=== PATIENT | female | born 1950 | race Caucasian/White ===

== ENCOUNTER 2018-02-22 21:10 | Emergency (ER) | payer MEDICARE, OTHER ==
--- NOTE | 2018-02-23 00:32 | XRAY Report ---
Reason: Pain after fall Procedure Date: 02/23/2018 Accession Number: [id number] / [id number] Procedure: XR - Hip w/Pelvis 2-3V RT CPT Code: FULL RESULT: EXAM: RIGHT HIP AND PELVIS RADIOGRAPHY EXAM DATE: 02/23/2018 12:03 AM. HISTORY: Pain after fall. COMPARISONS: None. TECHNIQUE: 1 view of the pelvis and 1 view of the hip. FINDINGS: Bones: Normal. No fracture or bone lesion. Joints: Mild bilateral hip osteoarthritis. Soft Tissues: Normal. No soft tissue swelling. IMPRESSION: Mild osteoarthritis. No evidence of fracture. RADIA
--- NOTE | 2018-02-23 00:44 | ED Physician Documentation ---
History of Present Illness - Stated complaint Stated Complaint: WEAKNESS - Chief complaint Chief Complaint: Ext Problem - History obtained from History obtained from: Patient - History of Present Illness Timing: How many weeks ago (1) Pain level max: 0 Pain level now: 0 Severity Comments: moderate Quality: weak Radiates to: Non Improved by: nothing Worsened by: nothing - Additonal information Additional information: 68-year-old female with 1 week of right foot drop. Patient denies any back pain. Patient denies any bowel or bladder difficulties. Patient denies any other weakness. Review of Systems Ten Systems: 10 systems reviewed and negative Constitutional: reports: Reviewed and negative Eyes: reports: Reviewed and negative Ears: reports: Reviewed and negative Nose: reports: Reviewed and negative Throat: reports: Reviewed and negative Cardiac: reports: Reviewed and negative Respiratory: reports: Reviewed and negative GI: reports: Reviewed and negative : reports: Reviewed and negative Skin: reports: Reviewed and negative Musculoskeletal: reports: Reviewed and negative Neurologic: reports: Reviewed and negative Psychiatric: reports: Reviewed and negative Endocrine: reports: Reviewed and negative Immunocompromised: reports: Reviewed and negative PD PAST MEDICAL HISTORY - Past Medical History Cardiovascular: None, Hypertension, High cholesterol Respiratory: None Endocrine/Autoimmune: None GI: None 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 : None HEENT: None Psych: None Musculoskeletal: Osteoarthritis, Osteoporosis, Chronic back pain Derm: None - Past Surgical History Past Surgical History: Yes General: Other Other past surgical history: Reviewed and not pertinent - Present Medications Home Medications: Ambulatory Orders Medication Instructions Recorded Confirmed Anastrozole 1 mg PO DAILY 05/11/14 09/06/15 Omeprazole 40 mg PO DAILY 05/11/14 09/06/15 Ibuprofen 600 mg PO TID #20 tablet 11/24/14 09/06/15 Albuterol Sulfate [Proair Hfa 1 gm INH Q6HR 09/06/15 09/06/15 Inhaler] Aspirin 1 mg PO DAILY 09/06/15 09/06/15 Calcium Carbonate/Vitamin D3 1 mg PO DAILY 09/06/15 09/06/15 [Calcium 500-Vit D3 600 Tablet] Cyclobenzaprine [Flexeril] 1 mg PO DAILY 09/06/15 09/06/15 Hydrocodone/Acetaminophen [[place] 1 each PO Q6H PRN #20 tablet 09/06/15 5-325 Tablet] Naproxen 375 mg PO BID #20 tablet 09/06/15 Simvastatin 1 mg PO DAILY 09/06/15 09/06/15 Telmisartan/Hydrochlorothiazid 80 mg PO DAILY 09/06/15 09/06/15 [Micardis Hct 40-12.5 mg Tablet] Vit A,C,D3,E/[place]-3/Ala/Dha 1 mg PO DAILY 09/06/15 09/06/15 [Child's [place]-3 Dha Multivitam] - Allergies Allergies/Adverse Reactions: Allergies Allergy/AdvReac Type Severity Reaction Status Date / Time Latex, Natural Rubber Allergy Rash Verified 02/22/18 21:20 lisinopril Allergy Respiratory Verified 02/22/18 21:20 - Living Situation Living Situation: reports: With family Living Arrangement: reports: At home - Social History Does the pt smoke?: Yes Smoking Status: Current every day smoker Does the pt drink ETOH?: Yes Does the pt have substance abuse?: No - Family History Family history: reports: Other (Reviewed and not pertinent) - Immunizations Immunizations are current?: Yes - POLST Patient has POLST: No PD ED PE NORMAL - Vitals Vital signs reviewed: Yes - General General: Alert and oriented X 3, No acute distress - HEENT HEENT: PERRL - Neck Neck: Supple, no meningeal sign - Cardiac Cardiac: RRR, No murmur - Respiratory Respiratory: Clear bilaterally - Abdomen Abdomen: Normal bowel sounds, Soft, Non tender, Non distended - Derm Derm: Warm and dry - Extremities Extremities: No deformity, Other (Weakness w dorsiflexion of right foot, toe extension, inversion and eversion, diminished sensation on right lateral wood. Right hip tenderness to palpation. ) - Neuro Neuro: Alert and oriented X 3 - Psych Psych: Normal mood, Normal affect Results - Vitals Vitals: Vital Signs - 24 hr 02/22/18 02/22/18 02/23/18 21:14 23:24 00:33 Temperature 36.2 C L Heart Rate 85 77 83 Respiratory 16 Rate Blood Pressure 94/51 L 133/86 H 110/66 O2 Saturation 98 95 91 L 02/23/18 00:54 Temperature Heart Rate 90 Respiratory 18 Rate Blood Pressure 118/66 O2 Saturation 90 L Oxygen O2 Source Room air - Rads (name of study) Right hip xray Radiology: Final report received (WNL) PD MEDICAL DECISION MAKING - ED course Complexity details: reviewed results, re-evaluated patient, considered differential, d/w patient, d/w family ED course: 68-year-old female with 1 week of right foot drop. Physical exam is consistent with an L5 radiculopathy. Patient was offered admission for physical and occupational therapy and emergent MRI but patient prefers to follow-up with her primary care provider for MRI.Will return with worsening symptoms. Departure - Departure Disposition: 01 Home, Self Care Clinical Impression: Lumbar radiculopathy, Foot drop, right Condition: Good Instructions: ED Foot Drop Follow-Up: SHAKIRA ARANA [Primary Care Provider] - Comments: Maintain walking precautions for right foot drop. Follow-up with PCP for lumbar MRI. Return with worsening symptoms. Discharge Date/Time: 02/23/18 00:54
[2018-02-23 00:55] VITALS: BP 118/66
== END 2018-02-23 00:54 | disposition home or self-care (01) ==
LOC: ED 21:10
DX: M54.16 Radiculopathy, lumbar region (principal); M21.371 Foot drop, right foot; I10 Essential (primary) hypertension; E78.00 Pure hypercholesterolemia, unspecified; C50.919 Malignant neoplasm of unspecified site of unspecified female breast; F17.200 Nicotine dependence, unspecified, uncomplicated; Z79.82 Long term (current) use of aspirin
CPT/HCPCS: 99283

== ENCOUNTER 2018-02-28 08:27 | Emergency (ER) | payer MEDICARE, OTHER ==
--- NOTE | 2018-02-28 08:48 | ED Physician Documentation ---
PD HPI GI BLEED - Stated complaint Stated Complaint: STOMACH PX/BLOOD IN STOOL - Chief complaint Chief Complaint: Abd Pain - History obtained from History obtained from: Patient, Family - History of Present Illness Timing - onset: How many days ago (3) Timing - duration: Days (3) Timing - details: Gradual onset, Still present Associated symptoms: BRBPR, Black/tarry stool, Abdominal pain Contributing factors: Alcohol use, NSAID use Improved by: Laying still Similar symptoms before: Has not had sx before Recently seen: Emergency Dept - Additional information Additional information: 68-year-old female with a history of chronic alcohol abuse and hypertension has recently been into the emergency department with a right foot drop and she has been taking ibuprofen last week for this and she began to develop some blood in the stool and dark stool 3 days ago. She is now feeling lightheaded and dizzy and has abdominal pain. She is come to the emergency department for evaluation. Review of Systems Constitutional: denies: Fever Eyes: denies: Decreased vision Ears: denies: Ear pain Nose: denies: Rhinorrhea / runny nose Throat: denies: Sore throat Cardiac: denies: Chest pain / pressure, Palpitations Respiratory: denies: Dyspnea, Cough GI: reports: Abdominal Pain, Nausea, Bloody / black stool. denies: Vomiting : denies: Dysuria, Frequency Skin: denies: Rash Musculoskeletal: reports: Back pain, Extremity pain. denies: Neck pain Neurologic: reports: Focal weakness. 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 : None HEENT: None Psych: None Musculoskeletal: Osteoarthritis, Osteoporosis, Chronic back pain Derm: None - Past Surgical History Past Surgical History: Yes General: Other - Present Medications Home Medications: Ambulatory Orders Medication Instructions Recorded Confirmed Anastrozole 1 mg PO DAILY 05/11/14 09/06/15 Omeprazole 40 mg PO DAILY 05/11/14 09/06/15 Ibuprofen 600 mg PO TID #20 tablet 11/24/14 09/06/15 Albuterol Sulfate [Proair Hfa 1 gm INH Q6HR 09/06/15 09/06/15 Inhaler] Aspirin 1 mg PO DAILY 09/06/15 09/06/15 Calcium Carbonate/Vitamin D3 1 mg PO DAILY 09/06/15 09/06/15 [Calcium 500-Vit D3 600 Tablet] Cyclobenzaprine [Flexeril] 1 mg PO DAILY 09/06/15 09/06/15 Hydrocodone/Acetaminophen [[place] 1 each PO Q6H PRN #20 tablet 09/06/15 5-325 Tablet] Naproxen 375 mg PO BID #20 tablet 09/06/15 Simvastatin 1 mg PO DAILY 09/06/15 09/06/15 Telmisartan/Hydrochlorothiazid 80 mg PO DAILY 09/06/15 09/06/15 [Micardis Hct 40-12.5 mg Tablet] Vit A,C,D3,E/[place]-3/Ala/Dha 1 mg PO DAILY 09/06/15 09/06/15 [Child's [place]-3 Dha Multivitam] LORazepam [Ativan] 1 - 2 mg PO Q6HR PRN #30 tablet 02/28/18 Sucralfate [Carafate] 1 gm PO ACHS #40 tablet 02/28/18 - Allergies Allergies/Adverse Reactions: Allergies Allergy/AdvReac Type Severity Reaction Status Date / Time Latex, Natural Rubber Allergy Rash Verified 02/22/18 21:20 lisinopril Allergy Respiratory Verified 02/22/18 21:20 - Social History Does the pt smoke?: Yes Smoking Status: Current every day smoker Does the pt drink ETOH?: Yes Does the pt have substance abuse?: No - Immunizations Immunizations are current?: Yes - POLST Patient has POLST: No PD ED PE NORMAL - Vitals Vital signs reviewed: Yes (hypotensive ) - General General: Alert and oriented X 3, No acute distress, Well developed/nourished, Other (pale 68 y/o female has AOB and appears to be in some pain ) - HEENT HEENT: Atraumatic, PERRL, EOMI, Other (dry mucous membranes ) - Neck Neck: Supple, no meningeal sign, No bony TTP - Cardiac Cardiac: RRR, No murmur - Respiratory Respiratory: No respiratory distress, Clear bilaterally - Abdomen Abdomen: Soft, Other (mild epigastric tenderness to palpation ) - Rectal Rectal: Other (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 There are internal as well as external hemorrhoids and there is stool on the tip of the glove that is dark and guiac negative. ) - Back Back: No CVA TTP, No spinal TTP - Derm Derm: Normal color, Warm and dry, No rash - Extremities Extremities: No deformity, No edema - Neuro Neuro: Alert and oriented X 3, personal development coach 2-12 intact, Normal speech Eye Opening: Spontaneous Motor: Obeys Commands Verbal: Oriented GCS Score: 15 - Psych Psych: Normal mood, Other (affect is flat consistent with pain ) Results - Vitals Vitals: Vital Signs - 24 hr 02/28/18 02/28/18 02/28/18 08:33 08:40 08:45 Temperature 35.9 C L Heart Rate 99 88 90 Respiratory 16 18 16 Rate Blood Pressure 70/48 L 99/68 94/58 L O2 Saturation 99 97 98 02/28/18 02/28/18 02/28/18 09:00 09:15 09:30 Temperature Heart Rate 79 77 75 Respiratory 16 15 14 Rate Blood Pressure 109/55 L 107/56 L 108/54 L O2 Saturation 99 97 97 02/28/18 02/28/18 02/28/18 09:45 10:10 10:45 Temperature 36.6 C Heart Rate 87 90 94 Respiratory 16 15 13 Rate Blood Pressure 118/52 L 103/57 L 115/66 O2 Saturation 100 100 95 02/28/18 02/28/18 13:03 15:30 Temperature Heart Rate 96 90 Respiratory 15 18 Rate Blood Pressure 112/64 101/54 L O2 Saturation 95 91 L Oxygen O2 Source Room air - Labs Labs: Laboratory Tests 02/28/18 02/28/18 02/28/18 08:40 08:40 08:40 WBC 4.1 L RBC 4.04 L Hgb 15.0 Hct 42.1 MCV 104.2 H MCH 37.1 H MCHC 35.6 RDW 13.8 Plt Count 76 L MPV 11.0 H Neut # (Auto) 2.4 Lymph # (Auto) 1.0 L [place] # (Auto) 0.6 Eos # (Auto) 0.0 Baso # (Auto) 0.1 Absolute Nucleated RBC 0.00 Nucleated RBC % 0.1 Manual Slide Review Indicated Platelet Estimate DECREASED (<130,000) Platelet Morphology 1+ LARGE PLATELETS RBC Morph Micro Appear 1+ MACROCYTOSIS PT INR Sodium 125 L Potassium 3.0 L Chloride 84 L Carbon Dioxide 26 Anion Gap 15.0 H BUN 7 Creatinine 0.5 Estimated GFR (MDRD) 122 Glucose 109 H Lactic Acid Calcium 8.3 L Total Bilirubin 1.9 H AST 246 H ALT 117 H Alkaline Phosphatase 189 H Troponin I < 0.04 Total Protein 5.6 L Albumin 3.2 Globulin 2.4 Albumin/Globulin Ratio 1.3 Lipase 43 Urine Color Urine Clarity Urine pH Ur Specific [place] Urine Protein Urine Glucose (UA) Urine Ketones Urine Occult Blood Urine Nitrite Urine Bilirubin Urine Urobilinogen Ur Leukocyte Esterase Ur Microscopic Review Urine Culture Comments Ethyl Alcohol 96.2 Blood Type Blood Type Recheck Antibody Screen Crossmatch IS Only 02/28/18 02/28/18 02/28/18 08:42 08:53 08:53 WBC RBC Hgb Hct MCV MCH MCHC RDW Plt Count MPV Neut # (Auto) Lymph # (Auto) [place] # (Auto) Eos # (Auto) Baso # (Auto) Absolute Nucleated RBC Nucleated RBC % Manual Slide Review Platelet Estimate Platelet Morphology RBC Morph Micro Appear PT INR Sodium Potassium Chloride Carbon Dioxide Anion Gap BUN Creatinine Estimated GFR (MDRD) Glucose Lactic Acid 4.2 H* Calcium Total Bilirubin AST ALT Alkaline Phosphatase Troponin I Total Protein Albumin Globulin Albumin/Globulin Ratio Lipase Urine Color Urine Clarity Urine pH Ur Specific [place] Urine Protein Urine Glucose (UA) Urine Ketones Urine Occult Blood Urine Nitrite Urine Bilirubin Urine Urobilinogen Ur Leukocyte Esterase Ur Microscopic Review Urine Culture Comments Ethyl Alcohol Blood Type A POSITIVE Blood Type Recheck A POSITIVE Antibody Screen NEGATIVE Crossmatch IS Only See Detail 02/28/18 02/28/18 02/28/18 09:46 10:18 12:32 WBC RBC Hgb Hct MCV MCH MCHC RDW Plt Count MPV Neut # (Auto) Lymph # (Auto) [place] # (Auto) Eos # (Auto) Baso # (Auto) Absolute Nucleated RBC Nucleated RBC % Manual Slide Review Platelet Estimate Platelet Morphology RBC Morph Micro Appear PT 11.3 INR 1.0 Sodium Potassium Chloride Carbon Dioxide Anion Gap BUN Creatinine Estimated GFR (MDRD) Glucose Lactic Acid 2.2 Calcium Total Bilirubin AST ALT Alkaline Phosphatase Troponin I Total Protein Albumin Globulin Albumin/Globulin Ratio Lipase Urine Color YELLOW Urine Clarity CLEAR Urine pH 7.0 Ur Specific [place] 1.010 Urine Protein NEGATIVE Urine Glucose (UA) NEGATIVE Urine Ketones NEGATIVE Urine Occult Blood NEGATIVE Urine Nitrite NEGATIVE Urine Bilirubin NEGATIVE Urine Urobilinogen 0.2 (NORMAL) Ur Leukocyte Esterase NEGATIVE Ur Microscopic Review NOT INDICATED Urine Culture Comments NOT INDICATED Ethyl Alcohol Blood Type Blood Type Recheck Antibody Screen Crossmatch IS Only 02/28/18 13:54 WBC RBC Hgb 13.3 Hct 36.9 L MCV MCH MCHC RDW Plt Count MPV Neut # (Auto) Lymph # (Auto) [place] # (Auto) Eos # (Auto) Baso # (Auto) Absolute Nucleated RBC Nucleated RBC % Manual Slide Review Platelet Estimate Platelet Morphology RBC Morph Micro Appear PT INR Sodium Potassium Chloride Carbon Dioxide Anion Gap BUN Creatinine Estimated GFR (MDRD) Glucose Lactic Acid Calcium Total Bilirubin AST ALT Alkaline Phosphatase Troponin I Total Protein Albumin Globulin Albumin/Globulin Ratio Lipase Urine Color Urine Clarity Urine pH Ur Specific [place] Urine Protein Urine Glucose (UA) Urine Ketones Urine Occult Blood Urine Nitrite Urine Bilirubin Urine Urobilinogen Ur Leukocyte Esterase Ur Microscopic Review Urine Culture Comments Ethyl Alcohol Blood Type Blood Type Recheck Antibody Screen Crossmatch IS Only - Rads (name of study) chest Radiology: Prelim report reviewed (Impression: No acute cardiopulmonary abnormalities detected.), EMP read indepedently, See rad report PD MEDICAL DECISION MAKING - ED course Complexity details: reviewed results, re-evaluated patient, considered differential, d/w patient, d/w family ED course: 68-year-old female with abdominal pain and bright red blood per rectum presents to the emergency department with weakness and GI bleeding. On initial evaluation the patient is hypotensive with a systolic blood pressure of 70 and IV saline is begun. Her initial blood counts are normal and examination of her rectum shows what appears to be inflamed hemorrhoids with evidence of recent bleeding. The stool that was present on the glove was dark and guaiac negative. Patient is administered a banana bag intravenously she does have some alcohol withdrawal symptoms and is administered Ativan IV as well. Her lactate was 4.4 when she arrived and a repeat is 2.2 after 2 L of fluid. canvas worker apprentice is able to come in and talk to the patient about alcohol resources and patient is interested in alcohol cessation and I will provide some Ativan for this. Departure - Departure Disposition: 01 Home, Self Care Clinical Impression: Alcohol abuse, Bleeding external hemorrhoids Gastritis Qualifiers: Gastritis type: alcoholic Chronicity: acute Gastritis bleeding: presence of bleeding unspecified Qualified Code(s): K29.20 - Alcoholic gastritis without bleeding Condition: Stable Instructions: ED Withdrawal Alcohol, ED PUD Vs Gastritis Follow-Up: SHAKIRA ARANA [Primary Care Provider] - Prescriptions: LORazepam [Ativan] 1 - 2 mg PO Q6HR PRN #30 tablet PRN Reason: withdrawal symptoms Sucralfate [Carafate] 1 gm PO ACHS #40 tablet
[2018-02-28 09:02] LABS: BASOPHILS # (AUTO) 0.1 10^3/uL (0.0-0.1); BASOPHILS % (AUTO) 1.6 %; EOSINOPHILS % (AUTO) 0.7 %; LYMPHOCYTES % (AUTO) 23.4 %; MEAN CORPUSCULAR HEMOGLOBIN 37.1 pg (27.0-31.0); MEAN CORPUSCULAR HGB CONC 35.6 g/dL (32.0-36.0); MEAN CORPUSCULAR VOLUME 104.2 fL (81.0-99.0); MONOCYTES # (AUTO) 0.6 10^3/uL (0.0-1.0); MONOCYTES % (AUTO) 14.6 %; NEUTROPHILS # (AUTO) 2.4 10^3/uL (1.5-6.6); NEUTROPHILS % (AUTO) 59.7 %; PLT - PLATELET COUNT 76 10^3/uL (130-450); RED BLOOD COUNT 4.04 10^6/uL (4.20-5.40); RED CELL DISTRIBUTION WIDTH 13.8 % (12.0-15.0); WHITE BLOOD COUNT 4.1 x10^3/uL (4.8-10.8)
[2018-02-28 09:21] LABS: ALBUMIN 3.2 g/dL (3.2-5.5); ALBUMIN/GLOBULIN RATIO 1.3 (1.0-2.2); BILIRUBIN,TOTAL 1.9 mg/dL (0.2-1.0); CALCIUM 8.3 mg/dL (8.5-10.3); CREATININE 0.5 mg/dL (0.4-1.0); TOTAL PROTEIN 5.6 g/dL (6.7-8.2)
[2018-02-28 09:27] LABS: PLATELET ESTIMATE, MANUAL DECREASED (<130,000) (NORMAL); PLATELET MORPHOLOGY 1+ LARGE PLATELETS (NORMAL); RBC MORPHOLOGY (MULTIPLE) 1+ MACROCYTOSIS (NORMAL)
[2018-02-28] MEDS ORDERED: FOLIC ACID INJ 1 MG, THIAMINE INJ 100 MG, MAGNESIUM SULFATE 2 GM, MULTIVITAMIN 10 ML in... IV STA ×5 (09:41)
[2018-02-28 10:19] LABS: PT - PROTHROMBIN TIME 11.3 secs (9.9-12.6)
[2018-02-28 10:31] LABS: BILIRUBIN,URINE NEGATIVE (NEGATIVE); GLUCOSE, URINE (UA) NEGATIVE (NEGATIVE); KETONES,URINE (UA) NEGATIVE (NEGATIVE); LEUKOCYTE ESTERASE, URINE NEGATIVE (NEGATIVE); NITRITE,URINE NEGATIVE (NEGATIVE); OCCULT BLOOD,URINE NEGATIVE (NEGATIVE); PROTEIN,URINE NEGATIVE (NEGATIVE); UROBILINOGEN,URINE 0.2 (NORMAL) E.U./dL (NORMAL)
[2018-02-28 10:39] LABS: CLARITY,URINE CLEAR (CLEAR)
[2018-02-28] MEDS ORDERED: SODIUM CHLORIDE 0.9% 1,000 ML IV ONE (11:16)
[2018-02-28] MEDS ORDERED: LORazepam 2 MG/ML VIAL IVP STA (13:08)
--- NOTE | 2018-02-28 13:15 | XRAY Report ---
Reason: chest pain Procedure Date: 02/28/2018 Accession Number: [id number] / [id number] Procedure: XR - Chest 1 View X-Ray CPT Code: 28488 FULL RESULT: EXAM: CHEST RADIOGRAPHY EXAM DATE: 02/28/2018 12:20 PM. CLINICAL HISTORY: Chest pain. COMPARISON: Chest 2 view PA/LAT 09/06/2015 7:00 AM. TECHNIQUE: 1 view. FINDINGS: Lungs/Pleura: No focal opacities evident. No pleural effusion. No pneumothorax. Mediastinum: Within exam limitations, the cardiomediastinal contour is normal. Other: Surgical clips are again seen projecting over the chest. IMPRESSION: No acute cardiopulmonary abnormalities detected. RADIA
[2018-02-28] MEDS ORDERED: DEXAMETHASONE 10 MG/ML VIAL IVP ONE (13:34)
[2018-02-28 14:00] LABS: HGB - HEMOGLOBIN 13.3 g/dL (12.0-16.0)
[2018-02-28] MEDS ORDERED: PANTOPRAZOLE 40 MG VIAL IVP STA (14:31)
[2018-02-28 16:03] VITALS: BP 101/54
== END 2018-02-28 16:20 | disposition home or self-care (01) ==
LOC: ED 08:27
DX: K64.8 Other hemorrhoids (principal); K64.4 Residual hemorrhoidal skin tags; K29.20 Alcoholic gastritis without bleeding; F10.239 Alcohol dependence with withdrawal, unspecified; I95.9 Hypotension, unspecified; F17.200 Nicotine dependence, unspecified, uncomplicated; I10 Essential (primary) hypertension; Z79.82 Long term (current) use of aspirin
CPT/HCPCS: 36415; 71045; 80053; 81003; 83605; 83690; 84484; 85014; 85018; 85025; 85610; 86850; 86900; 86901; 86920; 96361; 96365; 96375; 99284; J2060; J3411; 80320; 81001; 87086

== ENCOUNTER 2018-04-02 20:52 | Inpatient (IN) | payer MEDICARE, OTHER ==
[2018-04-02] MEDS ORDERED: cefTRIAXone 1 GM in SODIUM CHLORIDE 0.9% MINIBAG 100 ML IV STA (21:47)
--- NOTE | 2018-04-02 21:49 | ED Physician Documentation ---
History of Present Illness - Stated complaint Stated Complaint: L FOOT PX - Chief complaint Chief Complaint: Ext Problem - History obtained from History obtained from: Patient, Family - History of Present Illness Timing: How many weeks ago (2) - Additonal information Additional information: 68-year-old female survivor of breast cancer with a history of hypertension and alcohol abuse has developed swelling in her lower extremities and she has been into see the doctor she has had an ultrasound to rule out DVT and she was not placed on diuretic as her potassium was low. She has had some improvement in the swelling with elevation of her legs and today she is developed sudden pain and redness to the left lower extremity and she has a blister on the dorsum of that foot which ruptured yesterday. Review of Systems Constitutional: reports: Chills. denies: Fever, Myalgias Eyes: denies: Decreased vision Nose: denies: Congestion Throat: denies: Sore throat Respiratory: denies: Cough GI: denies: Abdominal Pain, Nausea, Vomiting : denies: Dysuria Musculoskeletal: reports: Extremity pain, Extremity swelling. 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 : None HEENT: None Psych: None Musculoskeletal: Osteoarthritis, Osteoporosis, Chronic back pain Derm: None - Past Surgical History Past Surgical History: Yes General: Other - Present Medications Home Medications: Ambulatory Orders Medication Instructions Recorded Confirmed Anastrozole 1 mg PO DAILY 05/11/14 09/06/15 Omeprazole 40 mg PO DAILY 05/11/14 09/06/15 Ibuprofen 600 mg PO TID #20 tablet 11/24/14 09/06/15 Albuterol Sulfate [Proair Hfa 1 gm INH Q6HR 09/06/15 09/06/15 Inhaler] Aspirin 1 mg PO DAILY 09/06/15 09/06/15 Calcium Carbonate/Vitamin D3 1 mg PO DAILY 09/06/15 09/06/15 [Calcium 500-Vit D3 600 Tablet] Cyclobenzaprine [Flexeril] 1 mg PO DAILY 09/06/15 09/06/15 Hydrocodone/Acetaminophen [[place] 1 each PO Q6H PRN #20 tablet 09/06/15 5-325 Tablet] Naproxen 375 mg PO BID #20 tablet 09/06/15 Simvastatin 1 mg PO DAILY 09/06/15 09/06/15 Telmisartan/Hydrochlorothiazid 80 mg PO DAILY 09/06/15 09/06/15 [Micardis Hct 40-12.5 mg Tablet] Vit A,C,D3,E/[place]-3/Ala/Dha 1 mg PO DAILY 09/06/15 09/06/15 [Child's [place]-3 Dha Multivitam] LORazepam [Ativan] 1 - 2 mg PO Q6HR PRN #30 tablet 02/28/18 Sucralfate [Carafate] 1 gm PO ACHS #40 tablet 02/28/18 - Allergies Allergies/Adverse Reactions: Allergies Allergy/AdvReac Type Severity Reaction Status Date / Time Latex, Natural Rubber Allergy Rash Verified 04/02/18 20:58 lisinopril Allergy Respiratory Verified 04/02/18 20:58 - Social History Does the pt smoke?: Yes Smoking Status: Current every day smoker Does the pt drink ETOH?: Yes Does the pt have substance abuse?: No - Immunizations Immunizations are current?: Yes - POLST Patient has POLST: No PD ED PE NORMAL - Vitals Vital signs reviewed: Yes (hypertensive mild ) - General General: Alert and oriented X 3, No acute distress, Well developed/nourished - HEENT HEENT: Atraumatic, PERRL, EOMI - Neck Neck: Supple, no meningeal sign, No bony TTP - Cardiac Cardiac: No murmur, Other (tachy to 110) - Respiratory Respiratory: No respiratory distress, Other (diminished breath sounds ) - Abdomen Abdomen: Soft, Non tender - Back Back: No CVA TTP, No spinal TTP - Derm Derm: Normal color, Warm and dry - Extremities Extremities: Other (There is pitting edema bilaterally and the left LE has a ruputured blister on the dorsum of the foot about 3cm round. There is erythema to the left foot that is blanching and the erythema extends proximally to the knee. The leg is tender. The distal n/v is intact. ) - Neuro Neuro: Alert and oriented X 3, dermatology nurse practitioner 2-12 intact, No motor deficit, No sensory deficit, Normal speech Eye Opening: Spontaneous Motor: Obeys Commands Verbal: Oriented GCS Score: 15 - Psych Psych: Normal mood, Normal affect Results - Vitals Vitals: Vital Signs - 24 hr 04/02/18 20:54 Temperature 36.2 C L Heart Rate 98 Respiratory 18 Rate Blood Pressure 130/86 H O2 Saturation 100 Oxygen O2 Source Room air - Labs Labs: Laboratory Tests 04/02/18 04/02/18 04/02/18 22:00 22:00 22:00 WBC 4.1 L RBC 3.85 L Hgb 14.2 Hct 42.4 MCV 110.1 H MCH 36.8 H MCHC 33.5 RDW 14.3 Plt Count 150 MPV 9.3 Neut # (Auto) 2.4 Lymph # (Auto) 0.9 L Jack # (Auto) 0.7 Eos # (Auto) 0.0 Baso # (Auto) 0.1 Absolute Nucleated RBC 0.01 Nucleated RBC % 0.3 Manual Slide Review Indicated WBC Morphology NORMAL APPEARANCE Platelet Estimate NORMAL (130-450,000) Platelet Morphology NORMAL APPEARANCE RBC Morph Micro Appear 3+ MACROCYTOSIS PT 11.5 INR 1.0 Sodium 141 Potassium 3.3 L Chloride 104 Carbon Dioxide 28 Anion Gap 9.0 BUN 5 L Creatinine 0.4 Estimated GFR (MDRD) 158 Glucose 105 H Lactic Acid Calcium 8.0 L Total Bilirubin 1.0 AST 270 H ALT 92 H Alkaline Phosphatase 185 H Total Protein 5.2 L Albumin 2.7 L Globulin 2.5 Albumin/Globulin Ratio 1.1 Lipase 49 Ethyl Alcohol 212.1 04/02/18 22:00 WBC RBC Hgb Hct MCV MCH MCHC RDW Plt Count MPV Neut # (Auto) Lymph # (Auto) Jack # (Auto) Eos # (Auto) Baso # (Auto) Absolute Nucleated RBC Nucleated RBC % Manual Slide Review WBC Morphology Platelet Estimate Platelet Morphology RBC Morph Micro Appear PT INR Sodium Potassium Chloride Carbon Dioxide Anion Gap BUN Creatinine Estimated GFR (MDRD) Glucose Lactic Acid 2.6 H Calcium Total Bilirubin AST ALT Alkaline Phosphatase Total Protein Albumin Globulin Albumin/Globulin Ratio Lipase Ethyl Alcohol Procedures - IVC sono (time) 2111 Bedside IVC sono: IVC measures (cm) (1.30), IVC collapsed c insp (cm) (complete), Dehydration (est 500ml deficit) PD MEDICAL DECISION MAKING - ED course Complexity details: reviewed old records, reviewed results, re-evaluated patient, considered differential, d/w patient, d/w family ED course: 68-year-old female with a history of alcohol abuse has developed swelling to both of her lower extremities over the last 3 weeks and she has been seen by her primary ultrasound is without evidence of DVT and today she has developed redness and pain to her left lower extremity and has cellulitis that extends to her knee. Here in the emergency department she is administered a banana bag intravenously and Rocephin and Dr. Quintero is kind enough to admit the patient to the hospital for continued care. Departure - Departure Disposition: [facility] DC/Xfer Clinical Impression: Alcohol abuse Cellulitis Qualifiers: Site of cellulitis: extremity Site of cellulitis of extremity: lower extremity Laterality: left Qualified Code(s): L03.116 - Cellulitis of left lower limb Condition: Fair
[2018-04-02] MEDS ORDERED: KETOROLAC 30 MG/ML VIAL IVP STA (21:58)
[2018-04-02 22:09] LABS: BASOPHILS # (AUTO) 0.1 10^3/uL (0.0-0.1); BASOPHILS % (AUTO) 1.7 %; EOSINOPHILS % (AUTO) 0.8 %; HGB - HEMOGLOBIN 14.2 g/dL (12.0-16.0); LYMPHOCYTES # (AUTO) 0.9 10^3/uL (1.5-3.5); LYMPHOCYTES % (AUTO) 21.8 %; MEAN CORPUSCULAR HEMOGLOBIN 36.8 pg (27.0-31.0); MEAN CORPUSCULAR HGB CONC 33.5 g/dL (32.0-36.0); MEAN CORPUSCULAR VOLUME 110.1 fL (81.0-99.0); MEAN PLATELET VOLUME 9.3 fL (7.9-10.8); MONOCYTES # (AUTO) 0.7 10^3/uL (0.0-1.0); MONOCYTES % (AUTO) 16.7 %; NEUTROPHILS # (AUTO) 2.4 10^3/uL (1.5-6.6); PLT - PLATELET COUNT 150 10^3/uL (130-450); RED BLOOD COUNT 3.85 10^6/uL (4.20-5.40); RED CELL DISTRIBUTION WIDTH 14.3 % (12.0-15.0); WHITE BLOOD COUNT 4.1 x10^3/uL (4.8-10.8)
[2018-04-02 22:13] LABS: PT - PROTHROMBIN TIME 11.5 secs (9.9-12.6)
[2018-04-02 22:18] LABS: ALBUMIN 2.7 g/dL (3.2-5.5); ALBUMIN/GLOBULIN RATIO 1.1 (1.0-2.2); CREATININE 0.4 mg/dL (0.4-1.0); TOTAL PROTEIN 5.2 g/dL (6.7-8.2)
[2018-04-02 22:21] LABS: PLATELET ESTIMATE, MANUAL NORMAL (130-450,000) (NORMAL); PLATELET MORPHOLOGY NORMAL APPEARANCE (NORMAL); RBC MORPHOLOGY (MULTIPLE) 3+ MACROCYTOSIS (NORMAL)
[2018-04-02] MEDS ORDERED: FOLIC ACID INJ 1 MG, THIAMINE INJ 100 MG, MAGNESIUM SULFATE 2 GM, MULTIVITAMIN 10 ML in... IV STA ×5 (22:53)
[2018-04-02] MEDS ORDERED: THIAMINE 100 MG/1 ML 2 ML MDV ONE (23:05)
[2018-04-02] MEDS ORDERED: HYDROcod/ACETAM 10 MG/325 MG TABLET PO PRN (23:07)
[2018-04-02] MEDS ORDERED: TEMAZEPAM 15 MG CAPSULE PO PRN (23:07)
[2018-04-02] MEDS ORDERED: PROMETHAZINE 25 MG/1 ML VIAL IM PRN (23:07)
[2018-04-02] MEDS ORDERED: ONDANSETRON 4 MG/2 ML VIAL IVP PRN (23:07)
[2018-04-02] MEDS ORDERED: SODIUM CHLORIDE FLUSH 0.9% 10 ML SYRINGE IVP PRN (23:07)
[2018-04-02] MEDS ORDERED: ZOLPIDEM 5 MG TABLET PO PRN (23:07)
[2018-04-02] MEDS ORDERED: ONDANSETRON ODT 4 MG TABLET TL PRN (23:07)
[2018-04-02] MEDS ORDERED: MORPHINE 2 MG/ML CARPUJECT IVP PRN (23:07)
[2018-04-02] MEDS ORDERED: NICOTINE 14 MG PATCH TOP STA (23:17)
[2018-04-02] MEDS ORDERED: POTASSIUM CHLORIDE 20 MEQ TABLET PO STA (23:18)
--- NOTE | 2018-04-02 23:27 | HISTORY & PHYSICAL EXAMINATION ---
Chief Complaint - Chief Complaint Chief Complaint: Left foot swelling with associated pain and ruptured blister to dorsum History of Present Illness - Admitted From Admitted From:: ED - History Obtained From Records Reviewed: yes History obtained from: Patient, ED staff Exam Limitations: None - History of Present Illness HPI Comment/Other: 68-year-old female with hx copd, chronic tobacco/etoh abuse disorder, HTN, HLP, survivor of breast cancer s/p lumpectomy and chemotx currently on anastazole with hx of DVT in past, chronic back pain, OA, osteoporosis, with recent diagnosis of right foot drop p/w swelling in her lower extremities. Patient was seen by her PCP and had an ultrasound to rule out DVT and she was not placed on diuretic as her potassium was low. She has had some improvement in the swelling with elevation of her legs and today she is developed sudden pain and redness to the left lower extremity and she has a blister on the dorsum of that foot which ruptured yesterday. Patient states that she continues to smoke and drink despite her ongoing right foot drop and chronic back pain with lumbar radiculopathy with no recent trauma, K was 3.3 with ETOh level of 212.1, macrocytosis with transaminitis along with lactic acid of 2.6 observed with mild leukopenia. Initial exam showed BLLE pitting edema 2-3+ with erythematous portions of feet BL extending up to pretibial aspects of legs with a ruptured blister to the left dorsum and associated warmth. There was very distinct minimal dorsi/plantar-flexion deficits to R-foot with some decreased 2 pt discrimination and tender left foot dorsum. 1+pulses on BLLE mainly due to edema. IV rocephin started in ED. Patient states subjective fevers, chills with a smokers cough w/o joint tenderness, diarrhea, CP, SOB, seizures or etoh withdrawals, bowel or blad jeremiah incontinence. 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 : reports: None HEENT: reports: None Psych: reports: None Musculoskeletal: reports: Osteoarthritis, Osteoporosis, Chronic back pain Derm: reports: None MRSA Hx?: No - Past Surgical History General: reports: Other (lumpectomy) - Substance History Use: Uses substance without health or social issues: Tobacco Abuse: Recurrent use of substance despite neg consequences: Alcohol Abuse Issues: Intoxication Dependence: Experiences withdrawal or developed tolerances: Tobacco, Alcohol Dependence Issues: Intoxication Tobacco Details: Cigarettes - POLST Patient has POLST: No POLST Status: Full Code Meds/Allgy - Home Medications Home Medications: Ambulatory Orders Medication Instructions Recorded Confirmed Telmisartan/Hydrochlorothiazid 1 tab PO DAILY 04/02/18 04/02/18 [Telmisartan-Hctz 80-25 mg Tab] - Allergies Allergies/Adverse Reactions: Allergies Allergy/AdvReac Type Severity Reaction Status Date / Time Latex, Natural Rubber Allergy Rash Verified 04/02/18 20:58 lisinopril Allergy Respiratory Verified 04/02/18 20:58 Review of Systems - Constitutional Constitutional: reports: Weakness - Eyes Eyes: denies: Blurred vision - Ears, Nose & Throat Ears, Nose & Throat: denies: Tinnitus, Vertigo - Cardiovascular Cariovascular: reports: Edema. denies: Palpitations, Chest pain, Lighthea dedness, Syncope - Respiratory Respiratory: reports: Cough. denies: Sputum production, Wheezing, Hemoptysis, Pleuritic pain - Gastrointestinal Gastrointestinal: denies: Abdominal pain, Abdominal distention, Constipation, Change in bowel habits, Bloody stools, Nausea, Vomiting, Coffee grounds emesis, Reflux/heartburn - Genitourinary Genitourinary: denies: Dysuria, Frequency, Urgency, Incontinence, Flank pain - Musculoskeletal Musculoskeletal: reports: Back pain, Muscle aches. denies: Limited range of motion, Muscle weakness, Joint swelling - Integumentary Integumentary: reports: Pigment changes. denies: Rash, Pruritis, Lesions, Dryness, Lumps - Neurological Neurological: reports: Numbness. denies: General weakness, Focal weakness, Dizziness, Abnormal gait, Seizures, Incoordination, Slurred speech - Psychiatric Psychiatric: denies: Depression, Anxiety, Suicidal, Hallucinations - Endocrine Endocrine: denies: Polyuria, Polydypsia, Polyphagia, Intolerance to cold, Intolerance to heat - Hematologic/Lymphatic Hematologic/Lymphatic: denies: Anemia, Blood clots, Lymphadenopathy, Bleeding tendencies, Recurrent infections - All Other Systems All Other Systems: reports: Reviewed and negative Prior Level of Functionality: Patient is independent with home ADL's Exam - Vital Signs Reviewed Vital Signs: Yes Vital Signs: Vital Signs x48h Temp Pulse Resp BP Pulse Ox 04/02/18 23:10 36.8 C 84 18 112/88 H 95 04/02/18 20:54 36.2 C L 98 18 130/86 H 100 - Physical Exam General Appearance: positive: No acute distress, Alert, Anxious Eyes Bilateral: positive: Normal inspection, PERRL, EOMI ENT: positive: ENT inspection nml, Pharynx nml, No signs of dehydration Neck: positive: Nml inspection, Thyroid nml, No JVD, Trachea midline, Thyromegaly. negative: Carotid bruit Respiratory: positive: Chest non-tender, No respiratory distress, Breath sounds nml Cardiovascular: positive: Regular rate & rhythm, No murmur, No gallop. negative: Irregularly irregular, JVD present, Systolic murmur, Gallop/S4 Peripheral Pulses: positive: 1+ Abdomen: positive: Non-tender, No organomegaly, Nml bowel sounds, No distention. negative: Tenderness Back: positive: Nml inspection Skin: positive: Warm, Dry, Other (Erythematous BLLE with edema, tenderness to touch, ruptured 2x2 cm blister lesion to dorsum of left foot.) Neurologic/Psychiatric: positive: Oriented x3, CN's nml (2-12), Motor nml, Mood/affect nml, Weakness (1/5 dorsi/plantar deficits noted), Sensory loss (to BLLE plantar surfaces with 2 pt discrimination.). negative: Facial droop, Slurred/abnml speech, Depressed mood/affect Babinski Reflex: Right: Absent, Left: Absent Sepsis Event Note (H) - Evaluation Current Stage of Sepsis: Ruled out Conclusion/Plan - Problem List (1) Cellulitis of both feet Conclusion/Plan: Left foot more affected than right foot with suspected coexisting mild PVD with some neuropathic pain underlying from her chronic etoh abuse and continued tobacco use. Would continue with IV clindamycin to cover for MSSA/MRSA and anaerobes, lactobacillus to provide gut gregory ppx, arterial US with flow to eval for PVD, place on pletal for platelet aggregation ppx, wound care to follow. Blood cultures drawn in ED. May de-escalate to augmentin or po clinda once erythema demarcation improved. (2) History of right foot drop Conclusion/Plan: Unclear of etiology but strongly suspect underlying ETOH induced micronutrient deficiencies such as Vit b12 or B1, obtain levels to confirm. Check TSH, CT of L-spine to eval for L-spine compression of cord with possible tumor or perhaps severe subacute degeneration of cord from b12 def? However, degenerative disc disease with sciatica likely. Vit b12/FA to follow. Would replace if low. PT consulted to evaluate for gait abnormalities associated with foot drop. (3) Neuropathic pain of both feet Conclusion/Plan: Pain control, initiate lyrica or neurontin for symptomatic treatment. Would discourage further ETOH consumption if b12 or other micronutrients low. Would discourage smoking as this will lead to poor circulation and PVD as well as arterial thrombis with associated infections. B12, B1 levels ordered. CT of L- spine in am. (4) Tobacco use disorder, continuous Conclusion/Plan: Offer smoking cessation, education and counseling, consider wellbutrin. Nicotine patch tx. (5) Hypokalemia Conclusion/Plan: Secondary to nutritional deficiencies from etoh abuse. BLLE edema to be treated. Would start on aldactone 25 mg po daily for K-sparing benefit. (6) Hyperlipidemia Conclusion/Plan: Lipid panel in am, low to moderate intensity statin if elevated in the setting of underlying PVD. Qualifiers: Hyperlipidemia type: other hyperlipidemia Qualified Code(s): E78.49 - Other hyperlipidemia; E78.4 - Other hyperlipidemia (7) Macrocytosis without anemia Conclusion/Plan: Sec to chronic bone marrow suppression, indication of B12/FA deficiencies, l evels to follow. (8) Alcohol abuse Conclusion/Plan: With associated tranaminitis seen with elevated LFT's, no withdrawal in past, would place on CIWA protocol with ativan in case, micronutrient def likely expected in the setting of her hx with neuropathic pain and suspected B12 def associated deg of cord? vs L-spine radiculopathy/sciatica. No anemias or bl eeding seen. No coagulopathy, continue to monitor. (9) Hypertension Conclusion/Plan: Resume home meds, if autonomic dysfunction is seen with etoh withdrawals may start clonidine. Qualifiers: Hypertension type: essential hypertension Qualified Code(s): I10 - Essential (primary) hypertension (10) Lumbar radiculopathy Conclusion/Plan: Lumbar CT w and w/o contrast to exclude cord compression by mass. Although unlikely may still be present due to risk factor of smoking. Presence of subacute cord Demyelination would point in the direction of ETOH induced B12 deficiency. (11) Advanced care planning/counseling discussion Conclusion/Plan: Patient's medical conditions along with associated complications were discussed in detail to include symptoms mgmt, trajectory of illness and associated disabilities if risk factors such as continued etoh abuse and smoking are not addressed with cessation and or other pharmacological modalities. Patient understood that lifestyle modifications are needed to achieve cessation of tobacco and etoh use to avoid such complications. She has no POLST and would further discuss her request for FULL code with thinking about whether or not she would want continued aggressive care in the event of medical futility. - Lab Results Lab results reviewed: Yes Fish Bones: 04/02/18 22:00 04/02/18 22:00 - EKG Results EKG Interpreted Independently: No Core Measures - Anticipated LOS I expect patient to be DC'd or transferred within 96 hours.: Yes - Issues Hospital Issues and Management Plan: Imaging studies, wound care, IV abx's, work up for PVD and Lumbar radiculopathy - DVT/VTE - Prophylaxis VTE/DVT Device ordered at admit?: No Not Ordered - Medical Reason: Contraindicated (due to BLLE edema and cellulitis) VTE/DVT Prophylaxis med ordered at admit?: Yes - Stroke - Rehab Assessment Rehab services assessment to be ordered?: No Not Ordered - Medical Reason: Not indicated - AMI - Statin at Admit Aspirin Prescribed on Admit: Yes
[2018-04-02] MEDS ORDERED: IOVERSOL 320 100 ML VIAL IVP ONE (23:33)
[2018-04-02] MEDS ORDERED: ASPIRIN CHEW 81 MG TABLET PO STA (23:55)
[2018-04-03] MEDS ORDERED: CLINDAMYCIN 900 MG/50 ML 50 ML IV SCH
[2018-04-03 00:22] LABS: THYROID STIMULATING HORMONE 0.95 uIU/mL (0.34-5.60)
[2018-04-03 00:33] LABS: FOLATE 2.88 ng/mL (5.90 - >24.8)
[2018-04-03] MEDS ORDERED: IOVERSOL 320 100 ML VIAL IVP ONE (00:48)
[2018-04-03] MEDS: PREGABALIN 100 MG CAPSULE PO SCH ×3 (00:53→20:35)
[2018-04-03] MEDS: CILOSTAZOL 100 MG TABLET PO SCH ×3 (00:54→20:35)
[2018-04-03] MEDS: MULTIVITAMIN TABLET PO STA ×3 (00:55→00:57)
[2018-04-03] MEDS: HEPARIN 5,000 UNIT/ML VIAL SUBQ SCH ×4 (01:01→21:29)
[2018-04-03] MEDS: THIAMINE 100 MG TABLET PO SCH ×4 (01:05→21:29)
--- NOTE | 2018-04-03 01:33 | CT Report ---
Reason: Right foot drop with L-spine radiculopathy Procedure Date: 04/03/2018 Accession Number: [id number] / [id number] Procedure: CT - LUMBAR SPINE W/WO CPT Code: FULL RESULT: EXAM: CT LUMBAR SPINE WITHOUT AND WITH CONTRAST EXAM DATE: 04/03/2018 12:46 AM. CLINICAL HISTORY: Right foot drop with L-spine radiculopathy. COMPARISONS: None. TECHNIQUE: Thin-section axial images were acquired of the lumbar spine from T12 to S1 without and with contrast. IV contrast dose: 90 mL Optiray 320. Post-processing: Coronal and sagittal reformats. Other: None. In accordance with CT protocol optimization, one or more of the following dose reduction techniques were utilized for this exam: automated exposure control, adjustment of mA and/or KV based on patient size, or use of iterative reconstructive technique. FINDINGS: Alignment: No scoliosis or spondylolisthesis. Bones: Five dyi-phq-[id number] lumbar vertebral bodies are present. No fractures or bone lesions. Disk Levels/Facets: T12-L1: Unremarkable. L1-L2: Unremarkable. L2-L3: There is a broad-based disk bulge. There is mild central canal narrowing. No neural foraminal narrowing. L3-L4: There is disk height loss and endplate osteophytosis. There is mild central canal narrowing. There is mild bilateral neural foraminal narrowing. L4-L5: There is a central disk protrusion. There is mild facet hypertrophy. There is mild central canal narrowing. There is moderate left neural foraminal narrowing. L5-S1: Small disk bulge. Mild facet hypertrophy. No central canal narrowing. Mild right neural foraminal narrowing. There is no enhancing abnormality. There is moderate aortoiliac calcification. Splenic artery calcifications. Diffuse low density of the liver. Visualized adjacent soft tissues otherwise unremarkable. Musculature: Normal. No fatty atrophy. Other: The visualized retroperitoneum is unremarkable. IMPRESSION: 1. No evidence of lumbar spine fracture. 2. L4-L5 disk protrusion with mild central canal narrowing. 3. L2-L3 disk bulge with mild central canal narrowing. L3-L4 endplate osteophytosis with mild central canal narrowing. 4. Moderate left L4-L5 neural foraminal narrowing. Mild bilateral L3-L4 and mild right L5-S1 neural foraminal narrowing. RADIA
[2018-04-03] MEDS: SODIUM CHLORIDE FLUSH 0.9% 10 ML SYRINGE IVP SCH ×3 (01:52→16:24)
--- NOTE | 2018-04-03 03:59 | Ultrasound Report ---
Reason: PVD with poor dorsalis pulse to BLLE Procedure Date: 04/03/2018 Accession Number: [id number] / [id number] Procedure: US - Duplex Lwr Ext Arterial Bilat CPT Code: FULL RESULT: EXAM: BILATERAL LOWER EXTREMITY ARTERIAL DOPPLER ULTRASOUND EXAM DATE: 04/03/2018 03:36 AM. CLINICAL HISTORY: PVD with poor dorsalis pulse to BLLE. COMPARISON: None. TECHNIQUE: Real-time sonographic vascular imaging was performed by the behavior clinician, utilizing color-flow, Doppler flow, and spectral analysis. Multiple credit representative static images were saved for review. FINDINGS: There is fairly diffuse atherosclerotic plaquing but no focal significant stenosis is identified. No occlusion is seen. There is three-vessel runoff bilaterally. Right Lower Extremity: MEDICAL FACILITIES SECTION DIRECTOR: PSV 127 cm/sec. PSFA: PSV 223 cm/sec. MSFA: PSV 145 cm/sec. DSFA: PSV 184 cm/sec. PFA: PSV 100 cm/sec. POP: PSV 150 cm/sec. MAXWELL: PSV 84 cm/sec. WIND ENERGY PROJECT MANAGER: PSV 38 cm/sec. NATHAN: PSV 88 cm/sec. DPA: PSV 21 cm/sec. Left Lower Extremity: MEDICAL FACILITIES SECTION DIRECTOR: PSV 147 cm/sec. PSFA: PSV 154 cm/sec. MSFA: PSV 167 cm/sec. DSFA: PSV 239 cm/sec. PFA: PSV 69 cm/sec. POP: PSV 122 cm/sec. MAXWELL: PSV 88 cm/sec. WIND ENERGY PROJECT MANAGER: PSV 118 cm/sec. NATHAN: PSV 77 cm/sec. DPA: PSV 21 cm/sec. IMPRESSION: 1. Atherosclerotic plaquing bilaterally with no focal significant stenosis identified. RADIA
[2018-04-03 05:50] LABS: BASOPHILS # (AUTO) 0.1 10^3/uL (0.0-0.1); BASOPHILS % (AUTO) 2.1 %; EOSINOPHILS # (AUTO) 0.1 10^3/uL (0.0-0.7); EOSINOPHILS % (AUTO) 1.9 %; HGB - HEMOGLOBIN 12.2 g/dL (12.0-16.0); LYMPHOCYTES % (AUTO) 25.3 %; MEAN CORPUSCULAR HGB CONC 33.7 g/dL (32.0-36.0); MEAN CORPUSCULAR VOLUME 109.9 fL (81.0-99.0); MEAN PLATELET VOLUME 8.7 fL (7.9-10.8); MONOCYTES # (AUTO) 0.5 10^3/uL (0.0-1.0); MONOCYTES % (AUTO) 13.7 %; NEUTROPHILS # (AUTO) 2.2 10^3/uL (1.5-6.6); PLT - PLATELET COUNT 128 10^3/uL (130-450); RED CELL DISTRIBUTION WIDTH 13.8 % (12.0-15.0); WHITE BLOOD COUNT 3.8 x10^3/uL (4.8-10.8)
[2018-04-03 05:54] LABS: ALBUMIN 2.2 g/dL (3.2-5.5); ALKALINE PHOSPHATASE 144 IU/L (42-121); ALT ALANINE AMINOTRANSFERASE 74 IU/L (10-60); AST ASPARTATE AMINOTRANSFERASE 191 IU/L (10-42); BILIRUBIN,TOTAL 1.1 mg/dL (0.2-1.0); BUN - BLOOD UREA NITROGEN < 5 mg/dL (6-20); CARBON DIOXIDE - CO2 25 mmol/L (21-32); CHLORIDE 105 mmol/L (101-111); CHOL/HDL RATIO 1.6 (<4.4); CHOLESTEROL 148 mg/dL; GLUCOSE 84 mg/dL (70-100); HDL CHOLESTEROL 91 mg/dL; LDL CHOLESTEROL,CALCULATED 44 mg/dL; LDL/HDL RATIO 0.5 (<4.4); SODIUM 138 mmol/L (135-145); TOTAL PROTEIN 4.4 g/dL (6.7-8.2); VLDL CHOLESTEROL 13 mg/dL
[2018-04-03 05:56] LABS: CREATININE < 0.3 mg/dL (0.4-1.0)
[2018-04-03] MEDS ORDERED: POTASSIUM CHLORIDE 20 MEQ TABLET PO ONE (07:23)
[2018-04-03] MEDS: PRENATAL VITAMIN TABLET PO SCH (08:39)
[2018-04-03] MEDS: POLYETHYLENE GLYCOL 3350 17 GM PACKET PO SCH (08:39)
[2018-04-03] MEDS: LACTOBACILLUS RHAMNOSUS GG CAPSULE PO SCH (08:40)
[2018-04-03] MEDS: FAMOTIDINE 20 MG TABLET PO SCH ×2 (08:40→20:35)
[2018-04-03] MEDS: SPIRONOLACTONE 25 MG TABLET PO SCH (08:41)
[2018-04-03] MEDS: CLINDAMYCIN 900 MG/50 ML 50 ML IV SCH ×3 (08:42→20:35)
[2018-04-03] MEDS ORDERED: CYANOCOBALAMIN 500 MCG TABLET PO SCH (09:00)
[2018-04-03] MEDS ORDERED: FOLIC ACID 1 MG TABLET PO SCH (09:00)
[2018-04-03] MEDS: LORazepam 2 MG/ML VIAL IVP PRN ×2 (09:02→09:19)
[2018-04-03] MEDS: ACETAMINOPHEN 325 MG TABLET PO PRN (09:34)
[2018-04-03] MEDS: SODIUM CHLORIDE 0.9% 1,000 ML IV SCH (11:06)
[2018-04-03] MEDS ORDERED: SODIUM CHLORIDE 0.9% 1,000 ML IV ONE (11:08)
[2018-04-03] MEDS: METOPROLOL SUCCINATE 25 MG TABLET PO SCH (11:15)
--- NOTE | 2018-04-03 11:52 | PROVIDER PROGRESS NOTE ---
Subjective - Prog Note Date Prog Note Date: 04/03/18 - Subjective Pt reports feeling: Improved Subjective: pt report she feel better, lower extremity pain is controlled better. She denies fever, chill, chest pain, SOB. She report she is alcoholism and daily alcohol. she also report daily cigarette smoker, and not be willing to change her life style yet. Current Medications - Current Medications Current Medications: Active Medications Acetaminophen (Tylenol) 650 mg PO Q4HR PRN PRN Reason: Pain or Fever > 38C (100.4F) Last Admin: 04/03/18 09:34 Dose: 650 mg Hydrocodone Bitart/Acetaminophen ([place] 10 Mg/325 Mg) 1 tab PO Q4HR PRN PRN Reason: Pain 8 to 10 Atorvastatin Calcium (Lipitor) 40 mg PO QPM [facility] Cilostazol (Pletal) 100 mg PO BID [facility] Last Admin: 04/03/18 09:02 Dose: 100 mg Cyanocobalamin (Vitamin B-12) 1,000 mcg PO DAILY [facility] Last Admin: 04/03/18 08:39 Dose: 1,000 mcg Famotidine (Pepcid) 20 mg PO BID [facility] Last Admin: 04/03/18 08:40 Dose: 20 mg Heparin Sodium (Porcine) () 5,000 unit SUBQ TID [facility] Last Admin: 04/03/18 06:16 Dose: 5,000 unit Clindamycin Phosphate (Cleocin 900 Mg/50 Ml) 50 mls @ 50 mls/hr IV Q6H [facility] Last Infusion: 04/03/18 09:45 Dose: Infused Sodium Chloride (Normal Saline 0.9%) 1,000 mls @ 75 mls/hr IV .[id number] [facility] Last Admin: 04/03/18 11:06 Dose: 75 mls/hr Lactobacillus Rhamnosus (Culturelle) 1 cap PO DAILY [facility] Last Admin: 04/03/18 08:40 Dose: 1 cap Lorazepam (Ativan Inj (Vial)) 1 mg IVP Q30M PRN; Protocol PRN Reason: CIWA >8 Last Admin: 04/03/18 09:19 Dose: 1 mg Metoprolol Succinate (Toprol Xl) 25 mg PO DAILY [facility] Last Admin: 04/03/18 11:15 Dose: 25 mg Morphine Sulfate (Morphine (Carpuject)) 2 mg IVP Q2HR PRN PRN Reason: Pain 8 to 10 Ondansetron HCl (Zofran Inj) 4 mg IVP Q6HR PRN PRN Reason: Nausea / Vomiting Ondansetron HCl (Zofran Odt) 4 mg TL Q6HR PRN PRN Reason: Nausea / Vomiting Polyethylene Glycol (Miralax) 17 gm PO DAILY [facility] Last Admin: 04/03/18 08:39 Dose: Not Given Pregabalin (Lyrica) 100 mg PO BID [facility] Last Admin: 04/03/18 08:41 Dose: 100 mg Multivit/Folic Acid/Iron (Trinatal Rx 1) 1 tab PO DAILY [facility] Last Admin: 04/03/18 08:39 Dose: 1 tab Promethazine HCl (Phenergan Inj) 25 mg IM Q6HR PRN PRN Reason: Nausea / Vomiting Sodium Chloride (Normal Saline Flush 0.9%) 10 ml IVP PRN PRN PRN Reason: NEEDED PER PROVIDER ORDERS Last Admin: 04/03/18 10:31 Dose: 10 ml Sodium Chloride (Normal Saline Flush 0.9%) 10 ml IVP 0100,0900,1700 [facility] Last Admin: 04/03/18 08:42 Dose: 10 ml Spironolactone (Aldactone) 25 mg PO DAILY [facility] Last Admin: 04/03/18 08:41 Dose: 25 mg Temazepam (Restoril) 15 mg PO QPM PRN PRN Reason: Insomnia Thiamine HCl (Vitamin B-1) 100 mg PO TID [facility] Last Admin: 04/03/18 06:16 Dose: 100 mg Zolpidem Tartrate (Ambien) 5 mg PO QPM PRN PRN Reason: Insomnia Telmisartan/Hydrochlorothiazid [Telmisartan-Hctz 80-25 mg Tab] 1 tab PO DAILY 04/02/18 Albuterol Sulfate [Albuterol Sulfate Hfa] 1 - 2 puffs IH DAILY 04/03/18 Objective - Vital Signs/Intake & Output Reviewed Vital Signs: Yes Vital Signs: Vital Signs x48h Temp Pulse Resp BP BP Pulse Ox 04/03/18 11:12 37.2 C 117 H 20 133/52 H 93 04/03/18 08:00 36.6 C 107 H 16 146/73 H 93 Intake & Output: Intake & Output 03/31/18 04/01/18 04/02/18 02/25/19 23:59 23:59 23:59 23:59 Intake Total 100 1805.2 Output Total 150 Balance 100 1655.2 - Objective General Appearance: positive: No acute distress, Alert. negative: Lethargic Eyes Bilateral: positive: Normal inspection, PERRL, No lid inflammation, Conjunctivae nml ENT: positive: ENT inspection nml, Pharynx nml. negative: Purulent nasal drainage, Pharyngeal erythema, Oral lesions Neck: positive: Nml inspection, Thyroid nml, No JVD, Trachea midline. negative: Thyromegaly, Lymphadenopathy (R), Lymphadenopathy (L), Stiff neck, Swelling/bruising, Tracheal deviation Respiratory: positive: Chest non-tender, No respiratory distress. negative: Wheezes, Rales, Rhonchi Cardiovascular: positive: Regular rate & rhythm, No murmur, No gallop, Tachycardia. negative: Irregularly irregular, Extrasystoles, Bradycardia, JVD present, Systolic murmur, Diastolic murmur Peripheral Pulses: 2+ Radial (R), 2+ Radial (L), 2+ Dorsalis pedis (R), 2+ Dorsalis pedis (L) Abdomen: positive: Non-tender, No organomegaly, Nml bowel sounds, No distention. negative: Tenderness, Guarding, Rebound Back: positive: Nml inspection. negative: CVA tenderness (R), CVA tenderness (L) Skin: positive: Color nml, No rash, Warm, Dry. negative: Cyanosis, Diaphoresis, Pallor Extremities: positive: Non-tender. negative: Calf tenderness, Eleanor's sign/cords Neurologic/Psychiatric: positive: Oriented x3, Sensation nml, Mood/affect nml. negative: Weakness, Sensory loss, Facial droop, Slurred/abnml speech, Depressed mood/affect - Lab Results Fish Bones: 04/03/18 05:25 04/03/18 05:25 Other Labs: Lab Results x24hrs 04/03/18 04/03/18 04/03/18 Range/Units 05:25 05:25 05:25 WBC 3.8 L (4.8-10.8) x10^3/uL RBC 3.30 L (4.20-5.40) 10^6/uL Hgb 12.2 (12.0-16.0) g/dL Hct 36.3 L (37.0-47.0) % MCV 109.9 H (81.0-99.0) fL MCH 37.0 H (27.0-31.0) pg MCHC 33.7 (32.0-36.0) g/dL RDW 13.8 (12.0-15.0) % Plt Count 128 L (130-450) 10^3/uL MPV 8.7 (7.9-10.8) fL Neut # (Auto) 2.2 (1.5-6.6) 10^3/uL Lymph # (Auto) 1.0 L (1.5-3.5) 10^3/uL [place] # (Auto) 0.5 (0.0-1.0) 10^3/uL Eos # (Auto) 0.1 (0.0-0.7) 10^3/uL Baso # (Auto) 0.1 (0.0-0.1) 10^3/uL Absolute Nucleated RBC 0.01 x10^3/uL Nucleated RBC % 0.2 /100WBC Manual Slide Review WBC Morphology (NORMAL) Platelet Estimate (NORMAL) Platelet Morphology (NORMAL) RBC Morph Micro Appear (NORMAL) ESR (0-30) mm/Hr PT (9.9-12.6) secs INR (0.8-1.2) Sodium 138 (135-145) mmol/L Potassium 3.1 L (3.5-5.0) mmol/L Chloride 105 (101-111) mmol/L Carbon Dioxide 25 (21-32) mmol/L Anion Gap 8.0 (6-13) BUN < 5 L (6-20) mg/dL Creatinine < 0.3 L (0.4-1.0) mg/dL Estimated GFR (MDRD) (>89) Glucose 84 (70-100) mg/dL Lactic Acid 2.3 H (0.5-2.2) mmol/L Calcium 7.0 L (8.5-10.3) mg/dL Magnesium (1.7-2.8) mg/dL Total Bilirubin 1.1 H (0.2-1.0) mg/dL AST 191 H (10-42) IU/L ALT 74 H (10-60) IU/L Alkaline Phosphatase 144 H (42-121) IU/L Total Creatine Kinase (22-269) IU/L Total Protein 4.4 L (6.7-8.2) g/dL Albumin 2.2 L (3.2-5.5) g/dL Globulin 2.2 (2.1-4.2) g/dL Albumin/Globulin Ratio 1.0 (1.0-2.2) Triglycerides 63 ( - 149) mg/dL Cholesterol 148 ( - 199) mg/dL LDL Cholesterol, Calc 44 ( - 129) mg/dL VLDL Cholesterol 13 mg/dL HDL Cholesterol 91 (60 - ) mg/dL LDL/HDL Ratio 0.5 (<4.4) Cholesterol/HDL Ratio 1.6 (<4.4) Lipase (22-51) U/L Vitamin B12 (180-914) pg/mL Folate (5.90 - >24.8) ng/mL TSH (0.34-5.60) uIU/mL Ethyl Alcohol mg/dL 04/02/18 04/02/18 04/02/18 Range/Units 22:02 22:02 22:02 WBC (4.8-10.8) x10^3/uL RBC (4.20-5.40) 10^6/uL Hgb (12.0-16.0) g/dL Hct (37.0-47.0) % MCV (81.0-99.0) fL MCH (27.0-31.0) pg MCHC (32.0-36.0) g/dL RDW (12.0-15.0) % Plt Count (130-450) 10^3/uL MPV (7.9-10.8) fL Neut # (Auto) (1.5-6.6) 10^3/uL Lymph # (Auto) (1.5-3.5) 10^3/uL [place] # (Auto) (0.0-1.0) 10^3/uL Eos # (Auto) (0.0-0.7) 10^3/uL Baso # (Auto) (0.0-0.1) 10^3/uL Absolute Nucleated RBC x10^3/uL Nucleated RBC % /100WBC Manual Slide Review WBC Morphology (NORMAL) Platelet Estimate (NORMAL) Platelet Morphology (NORMAL) RBC Morph Micro Appear (NORMAL) ESR 1 (0-30) mm/Hr PT (9.9-12.6) secs INR (0.8-1.2) Sodium (135-145) mmol/L Potassium (3.5-5.0) mmol/L Chloride (101-111) mmol/L Carbon Dioxide (21-32) mmol/L Anion Gap (6-13) BUN (6-20) mg/dL Creatinine (0.4-1.0) mg/dL Estimated GFR (MDRD) (>89) Glucose (70-100) mg/dL Lactic Acid (0.5-2.2) mmol/L Calcium (8.5-10.3) mg/dL Magnesium 2.0 (1.7-2.8) mg/dL Total Bilirubin (0.2-1.0) mg/dL AST (10-42) IU/L ALT (10-60) IU/L Alkaline Phosphatase (42-121) IU/L Total Creatine Kinase 51 (22-269) IU/L Total Protein (6.7-8.2) g/dL Albumin (3.2-5.5) g/dL Globulin (2.1-4.2) g/dL Albumin/Globulin Ratio (1.0-2.2) Triglycerides ( - 149) mg/dL Cholesterol ( - 199) mg/dL LDL Cholesterol, Calc ( - 129) mg/dL VLDL Cholesterol mg/dL HDL Cholesterol (60 - ) mg/dL LDL/HDL Ratio (<4.4) Cholesterol/HDL Ratio (<4.4) Lipase (22-51) U/L Vitamin B12 1206 H (180-914) pg/mL Folate 2.88 L (5.90 - >24.8) ng/mL TSH 0.95 (0.34-5.60) uIU/mL Ethyl Alcohol mg/dL 04/02/18 04/02/18 04/02/18 Range/Units 22:00 22:00 22:00 WBC (4.8-10.8) x10^3/uL RBC (4.20-5.40) 10^6/uL Hgb (12.0-16.0) g/dL Hct (37.0-47.0) % MCV (81.0-99.0) fL MCH (27.0-31.0) pg MCHC (32.0-36.0) g/dL RDW (12.0-15.0) % Plt Count (130-450) 10^3/uL MPV (7.9-10.8) fL Neut # (Auto) (1.5-6.6) 10^3/uL Lymph # (Auto) (1.5-3.5) 10^3/uL [place] # (Auto) (0.0-1.0) 10^3/uL Eos # (Auto) (0.0-0.7) 10^3/uL Baso # (Auto) (0.0-0.1) 10^3/uL Absolute Nucleated RBC x10^3/uL Nucleated RBC % /100WBC Manual Slide Review WBC Morphology (NORMAL) Platelet Estimate (NORMAL) Platelet Morphology (NORMAL) RBC Morph Micro Appear (NORMAL) ESR (0-30) mm/Hr PT 11.5 (9.9-12.6) secs INR 1.0 (0.8-1.2) Sodium 141 (135-145) mmol/L Potassium 3.3 L (3.5-5.0) mmol/L Chloride 104 (101-111) mmol/L Carbon Dioxide 28 (21-32) mmol/L Anion Gap 9.0 (6-13) BUN 5 L (6-20) mg/dL Creatinine 0.4 (0.4-1.0) mg/dL Estimated GFR (MDRD) 158 (>89) Glucose 105 H (70-100) mg/dL Lactic Acid 2.6 H (0.5-2.2) mmol/L Calcium 8.0 L (8.5-10.3) mg/dL Magnesium (1.7-2.8) mg/dL Total Bilirubin 1.0 (0.2-1.0) mg/dL AST 270 H (10-42) IU/L ALT 92 H (10-60) IU/L Alkaline Phosphatase 185 H (42-121) IU/L Total Creatine Kinase (22-269) IU/L Total Protein 5.2 L (6.7-8.2) g/dL Albumin 2.7 L (3.2-5.5) g/dL Globulin 2.5 (2.1-4.2) g/dL Albumin/Globulin Ratio 1.1 (1.0-2.2) Triglycerides ( - 149) mg/dL Cholesterol ( - 199) mg/dL LDL Cholesterol, Calc ( - 129) mg/dL VLDL Cholesterol mg/dL HDL Cholesterol (60 - ) mg/dL LDL/HDL Ratio (<4.4) Cholesterol/HDL Ratio (<4.4) Lipase 49 (22-51) U/L Vitamin B12 (180-914) pg/mL Folate (5.90 - >24.8) ng/mL TSH (0.34-5.60) uIU/mL Ethyl Alcohol 212.1 mg/dL 04/02/18 Range/Units 22:00 WBC 4.1 L (4.8-10.8) x10^3/uL RBC 3.85 L (4.20-5.40) 10^6/uL Hgb 14.2 (12.0-16.0) g/dL Hct 42.4 (37.0-47.0) % MCV 110.1 H (81.0-99.0) fL MCH 36.8 H (27.0-31.0) pg MCHC 33.5 (32.0-36.0) g/dL RDW 14.3 (12.0-15.0) % Plt Count 150 (130-450) 10^3/uL MPV 9.3 (7.9-10.8) fL Neut # (Auto) 2.4 (1.5-6.6) 10^3/uL Lymph # (Auto) 0.9 L (1.5-3.5) 10^3/uL [place] # (Auto) 0.7 (0.0-1.0) 10^3/uL Eos # (Auto) 0.0 (0.0-0.7) 10^3/uL Baso # (Auto) 0.1 (0.0-0.1) 10^3/uL Absolute Nucleated RBC 0.01 x10^3/uL Nucleated RBC % 0.3 /100WBC Manual Slide Review Indicated WBC Morphology NORMAL APPEARANCE (NORMAL) Platelet Estimate NORMAL (130-450,000) (NORMAL) Platelet Morphology NORMAL APPEARANCE (NORMAL) RBC Morph Micro Appear 3+ MACROCYTOSIS (NORMAL) ESR (0-30) mm/Hr PT (9.9-12.6) secs INR (0.8-1.2) Sodium (135-145) mmol/L Potassium (3.5-5.0) mmol/L Chloride (101-111) mmol/L Carbon Dioxide (21-32) mmol/L Anion Gap (6-13) BUN (6-20) mg/dL Creatinine (0.4-1.0) mg/dL Estimated GFR (MDRD) (>89) Glucose (70-100) mg/dL Lactic Acid (0.5-2.2) mmol/L Calcium (8.5-10.3) mg/dL Magnesium (1.7-2.8) mg/dL Total Bilirubin (0.2-1.0) mg/dL AST (10-42) IU/L ALT (10-60) IU/L Alkaline Phosphatase (42-121) IU/L Total Creatine Kinase (22-269) IU/L Total Protein (6.7-8.2) g/dL Albumin (3.2-5.5) g/dL Globulin (2.1-4.2) g/dL Albumin/Globulin Ratio (1.0-2.2) Triglycerides ( - 149) mg/dL Cholesterol ( - 199) mg/dL LDL Cholesterol, Calc ( - 129) mg/dL VLDL Cholesterol mg/dL HDL Cholesterol (60 - ) mg/dL LDL/HDL Ratio (<4.4) Cholesterol/HDL Ratio (<4.4) Lipase (22-51) U/L Vitamin B12 (180-914) pg/mL Folate (5.90 - >24.8) ng/mL TSH (0.34-5.60) uIU/mL Ethyl Alcohol mg/dL ABX Reporting Has patient been on IV antibiotics over the past 48 hours?: Yes Sepsis Event Note (H) - Evaluation Current Stage of Sepsis: Ruled out Assessment/Plan - Problem List (1) Cellulitis of both feet Impression: 04/03 swelling, redness, tenderness are improved today. pt report her lower extremity pain is better controlled. but it seems pt is not ready to give up cigarette smoke and alcoholism yet. US of lower extremity artery reveals no significant narrow of artery. In the examination, pulse is felt at 2+. continue Clindamycin IV, will monitor if continue Pletal pain control (2) History of right foot drop Conclusion/Plan: 04/03 suspect underlying ETOH induced micronutrient deficiencies and confused/intoxication to cause the injury of foot drop. continue folic acid since it is lower continue vitamin and B1 due to chronic alcoholism (3) Neuropathic pain of both feet Conclusion/Plan: pt feel better and continue Lyrica (4) Tobacco use disorder, continuous Conclusion/Plan: advise pt quit but pt state she is not ready yet. she also does not want Nicotine Patch yet, she state she will ask if she need (5) Hypokalemia Conclusion/Plan: replacement and will lab monitor (6) Hyperlipidemia Conclusion/Plan: continue home statin. (7) Macrocytosis without anemia Conclusion/Plan: B12 is slight high, no need extra (8) Alcohol abuse Conclusion/Plan: pt state she is alcoholism and drink alcohol daily, she report she start to have headache start on CIWA, vitamin and B1 (9) Hypertension Conclusion/Plan: Resume home meds, if autonomic dysfunction is seen with etoh withdrawals may start clonidine. (10) Lumbar radiculopathy Conclusion/Plan: Lumbar CT w and w/o contrast to reveals no significant stenosis, continue pain control (11) Advanced care planning/counseling discussion Conclusion/Plan: in this point pt ask for full code, will support.
[2018-04-03] MEDS ORDERED: LIDOCAINE JELLY 2% 6 ML JEL.PF.APP UR ONE (14:00)
--- NOTE | 2018-04-03 16:14 | XRAY Report ---
Reason: SOB Procedure Date: 04/03/2018 Accession Number: [id number] / [id number] Procedure: XR - Chest 1 View X-Ray CPT Code: 01741 FULL RESULT: EXAM: CHEST RADIOGRAPHY EXAM DATE: 04/03/2018 03:56 PM. CLINICAL HISTORY: SOB. COMPARISON: CHEST 1 VIEW 02/28/2018 12:20 PM. TECHNIQUE: 1 view. FINDINGS: Cardiac leads overlie the chest. The patient is slightly rotated to the right. Heart size is normal. Calcified plaques in the thoracic aorta. Vertically oriented thin linear lucency along the right cardiomediastinal border. No focal consolidation. No pleural effusions. IMPRESSION: Vertically oriented thin linear lucency along the right cardiomediastinal border, which may be artifactual and related to patient positioning. Pneumomediastinum and small right pneumothorax difficult to entirely exclude. Consider dedicated PA and lateral chest radiographs to further evaluate. RADIA
[2018-04-03] MEDS: BENZOCAINE/MENTHOL LOZENGE MM PRN ×2 (16:23→20:41)
--- NOTE | 2018-04-03 20:03 | XRAY Report ---
Reason: SOB. Procedure Date: 04/03/2018 Accession Number: [id number] / [id number] Procedure: XR - Chest 2 View X-Ray CPT Code: 16637 FULL RESULT: EXAM: CHEST RADIOGRAPHY EXAM DATE: 04/03/2018 06:48 PM. CLINICAL HISTORY: Shortness of breath. COMPARISON: CHEST 1 VIEW 04/03/2018 3:43 PM. TECHNIQUE: 2 views. FINDINGS: Cardiac leads overlie the chest. Heart size is normal. Calcified plaques in the thoracic aorta. No consolidation. No evidence of pneumothorax or pneumomediastinum. Small bilateral pleural effusions. Surgical clips project over the left breast. IMPRESSION: The previous linear lucency in the medial right lung is no longer visualized and was likely artifactual. No evidence of pneumothorax or pneumomediastinum. Small bilateral pleural effusions. No new consolidation. RADIA
[2018-04-03] MEDS ORDERED: ATORVASTATIN 40 MG TABLET PO SCH (21:00)
[2018-04-04] MEDS: SODIUM CHLORIDE FLUSH 0.9% 10 ML SYRINGE IVP SCH ×2 (01:23→10:17)
[2018-04-04] MEDS: SODIUM CHLORIDE 0.9% 1,000 ML IV SCH (01:53)
[2018-04-04] MEDS: CLINDAMYCIN 900 MG/50 ML 50 ML IV SCH ×2 (01:53→10:14)
[2018-04-04] MEDS: ACETAMINOPHEN 325 MG TABLET PO PRN (05:01)
[2018-04-04] MEDS ORDERED: IPRATROPIUM/ALBUTEROL 3 ML NEB INH PRN (05:08)
[2018-04-04] MEDS: THIAMINE 100 MG TABLET PO SCH (05:36)
[2018-04-04] MEDS: HEPARIN 5,000 UNIT/ML VIAL SUBQ SCH (05:36)
[2018-04-04 05:53] LABS: BASOPHILS # (AUTO) 0.1 10^3/uL (0.0-0.1); BASOPHILS % (AUTO) 1.3 %; EOSINOPHILS % (AUTO) 0.7 %; HGB - HEMOGLOBIN 11.7 g/dL (12.0-16.0); LYMPHOCYTES # (AUTO) 0.6 10^3/uL (1.5-3.5); LYMPHOCYTES % (AUTO) 10.4 %; MEAN CORPUSCULAR HEMOGLOBIN 36.9 pg (27.0-31.0); MEAN CORPUSCULAR VOLUME 108.7 fL (81.0-99.0); MEAN PLATELET VOLUME 9.3 fL (7.9-10.8); MONOCYTES # (AUTO) 0.9 10^3/uL (0.0-1.0); MONOCYTES % (AUTO) 14.9 %; NEUTROPHILS # (AUTO) 4.2 10^3/uL (1.5-6.6); NEUTROPHILS % (AUTO) 72.7 %; PLT - PLATELET COUNT 128 10^3/uL (130-450); RED BLOOD COUNT 3.18 10^6/uL (4.20-5.40); RED CELL DISTRIBUTION WIDTH 14.1 % (12.0-15.0); WHITE BLOOD COUNT 5.7 x10^3/uL (4.8-10.8)
[2018-04-04 06:05] LABS: ALBUMIN 2.2 g/dL (3.2-5.5); ALBUMIN/GLOBULIN RATIO 1.2 (1.0-2.2); BILIRUBIN,TOTAL 1.7 mg/dL (0.2-1.0); CALCIUM 7.5 mg/dL (8.5-10.3); CREATININE 0.4 mg/dL (0.4-1.0); TOTAL PROTEIN 4.1 g/dL (6.7-8.2)
[2018-04-04] MEDS: PRENATAL VITAMIN TABLET PO SCH (10:15)
[2018-04-04] MEDS: METOPROLOL SUCCINATE 25 MG TABLET PO SCH (10:15)
[2018-04-04] MEDS: FAMOTIDINE 20 MG TABLET PO SCH (10:15)
[2018-04-04] MEDS: PREGABALIN 100 MG CAPSULE PO SCH (10:16)
[2018-04-04] MEDS: CILOSTAZOL 100 MG TABLET PO SCH (10:16)
[2018-04-04] MEDS: LACTOBACILLUS RHAMNOSUS GG CAPSULE PO SCH (10:16)
[2018-04-04] MEDS: SPIRONOLACTONE 25 MG TABLET PO SCH (10:17)
[2018-04-04] MEDS: POLYETHYLENE GLYCOL 3350 17 GM PACKET PO SCH (10:17)
[2018-04-04 11:20] VITALS: BP 110/73
--- NOTE | 2018-04-04 11:24 | PROVIDER PROGRESS NOTE ---
Subjective - Prog Note Date Prog Note Date: 04/04/18 Prog Note Time: 11:23 - Subjective Subjective: Formal consult note dictated Objective - Vital Signs/Intake & Output Vital Signs: Vital Signs x48h Temp Pulse Pulse Resp BP Pulse Ox 04/04/18 11:20 36.8 C 90 18 110/73 99 04/04/18 07:55 36.6 C 88 20 113/54 L 98 04/04/18 05:45 92 20 04/04/18 04:30 37 C 117 H 22 94 04/04/18 03:48 37 C 117 H 22 139/49 H 94 Intake & Output: Intake & Output 04/01/18 04/02/18 04/03/18 04/04/18 23:59 23:59 23:59 23:59 Intake Total 100 3445.2 2010 Output Total 150 1700 Balance 100 3295.2 310 - Lab Results Fish Bones: 04/04/18 05:42 04/04/18 05:42 Other Labs: Lab Results x24hrs 04/04/18 04/04/18 04/03/18 Range/Units 05:42 05:42 17:08 WBC 5.7 (4.8-10.8) x10^3/uL RBC 3.18 L (4.20-5.40) 10^6/uL Hgb 11.7 L (12.0-16.0) g/dL Hct 34.5 L (37.0-47.0) % MCV 108.7 H (81.0-99.0) fL MCH 36.9 H (27.0-31.0) pg MCHC 34.0 (32.0-36.0) g/dL RDW 14.1 (12.0-15.0) % Plt Count 128 L (130-450) 10^3/uL MPV 9.3 (7.9-10.8) fL Neut # (Auto) 4.2 (1.5-6.6) 10^3/uL Lymph # (Auto) 0.6 L (1.5-3.5) 10^3/uL [place] # (Auto) 0.9 (0.0-1.0) 10^3/uL Eos # (Auto) 0.0 (0.0-0.7) 10^3/uL Baso # (Auto) 0.1 (0.0-0.1) 10^3/uL Absolute Nucleated RBC 0.03 x10^3/uL Nucleated RBC % 0.6 /100WBC D-Dimer 397.6 H (200.0-255.0) ng/mL Sodium 135 (135-145) mmol/L Potassium 3.8 (3.5-5.0) mmol/L Chloride 103 (101-111) mmol/L Carbon Dioxide 26 (21-32) mmol/L Anion Gap 6.0 (6-13) BUN 5 L (6-20) mg/dL Creatinine 0.4 (0.4-1.0) mg/dL Estimated GFR (MDRD) 158 (>89) Glucose 124 H (70-100) mg/dL Lactic Acid (0.5-2.2) mmol/L Calcium 7.5 L (8.5-10.3) mg/dL Total Bilirubin 1.7 H (0.2-1.0) mg/dL AST 174 H (10-42) IU/L ALT 68 H (10-60) IU/L Alkaline Phosphatase 147 H (42-121) IU/L Troponin I (<0.49) ng/mL Total Protein 4.1 L (6.7-8.2) g/dL Albumin 2.2 L (3.2-5.5) g/dL Globulin 1.9 L (2.1-4.2) g/dL Albumin/Globulin Ratio 1.2 (1.0-2.2) 04/03/18 04/03/18 Range/Units 15:49 11:53 WBC (4.8-10.8) x10^3/uL RBC (4.20-5.40) 10^6/uL Hgb (12.0-16.0) g/dL Hct (37.0-47.0) % MCV (81.0-99.0) fL MCH (27.0-31.0) pg MCHC (32.0-36.0) g/dL RDW (12.0-15.0) % Plt Count (130-450) 10^3/uL MPV (7.9-10.8) fL Neut # (Auto) (1.5-6.6) 10^3/uL Lymph # (Auto) (1.5-3.5) 10^3/uL [place] # (Auto) (0.0-1.0) 10^3/uL Eos # (Auto) (0.0-0.7) 10^3/uL Baso # (Auto) (0.0-0.1) 10^3/uL Absolute Nucleated RBC x10^3/uL Nucleated RBC % /100WBC D-Dimer (200.0-255.0) ng/mL Sodium (135-145) mmol/L Potassium (3.5-5.0) mmol/L Chloride (101-111) mmol/L Carbon Dioxide (21-32) mmol/L Anion Gap (6-13) BUN (6-20) mg/dL Creatinine (0.4-1.0) mg/dL Estimated GFR (MDRD) (>89) Glucose (70-100) mg/dL Lactic Acid 2.4 H (0.5-2.2) mmol/L Calcium (8.5-10.3) mg/dL Total Bilirubin (0.2-1.0) mg/dL AST (10-42) IU/L ALT (10-60) IU/L Alkaline Phosphatase (42-121) IU/L Troponin I < 0.04 (<0.49) ng/mL Total Protein (6.7-8.2) g/dL Albumin (3.2-5.5) g/dL Globulin (2.1-4.2) g/dL Albumin/Globulin Ratio (1.0-2.2) Sepsis Event Note (H) - Evaluation Current Stage of Sepsis: Ruled out Assessment/Plan - Problem List (1) Foot drop, right Impression: PLAN: Patient evaluated and examined today. Formal note dictated. CAM walker ordered
--- NOTE | 2018-04-04 11:38 | Discharge Plan ---
Discharge Plan Disposition: 06 Home Health Service Condition: Poor Prescriptions: Clindamycin [Cleocin] 300 mg PO Q6H 6 Days #48 capsule Lactobacillus Rhamnosus GG [Culturelle] 1 cap PO DAILY #6 capsule Metoprolol Succinate [Toprol Xl] 25 mg PO DAILY #10 tablet Diet: Regular Activity Restrictions: Activity as Tolerated Shower Restrictions: No (fall precaution) Instruction Topics: Cellulitis Ch, Clindamycin capsules, Metoprolol tablets, ED Foot Drop Additional Instructions or Follow Up instructions: You may followup your PCP in one week, followup [employer] and neurologist for the care of your right foot drop as out-pt, one CAM walker is ordered by our orthopedics for you, home health PT is arranged for you. Antibiotics Clindamycin is ordered for you to finish the antibiotics course. Metoprolol is ordered for you to control your heart rate. Should your symptoms return or worsen, you may present ER or call 911 or call your PCP for help. No Smoking: If you smoke, Please STOP! Call for help. Follow-up with: SHAKIRA ARANA [Primary Care Provider] -
--- NOTE | 2018-04-04 11:42 | CONSULTATION NOTE ---
DATE OF SERVICE: 04/04/2018 Physician: Denver Osman MD REFERRING PROVIDER: COLLIN Navarro, of the hospitalist service. HISTORY OF PRESENT ILLNESS: The patient is a 68-year-old female recently admitted to the [facility] for treatment of a left foot cellulitis, who is also complaining of a different problem. She states that over the last month or 6 weeks, she has been having a rather acute onset of a right drop foot. This made it difficult for her to walk without tripping. Gas to compensate with hyperflexion of her hip. Of note is that she has had some intermittent back symptoms in the past, and has been w orked up in the past for what sounds like mild stenosis at the L4-L5 level. Only in the last 4-6 wee ks that she noted neurological symptoms, such as her drop foot on the right side. She does not have any specific areas of numbness in her right lower extremity, however. She denies any specific trauma , other than a falling on her hip in the recent past, but she is not sure whether this is related to her current foot symptoms. Her cellulitis has improved since her admission to the hospital, and she is planning on a discharge from the hospital later today. We have been asked to see if any further t reatment or workup can be done in the hospital for her right drop foot. PHYSICAL EXAMINATION: The patient had no focal tenderness on palpation around the back. Her motion of her lumbosacral spine appears to be essentially within normal limits. Her right foot does demonst rate a drop foot. Passively were able to bring her foot back up in the neutral position, but by grav ity, she definitely has weakness in her ankle dorsiflexors. She also has a very weak ankle everters a s well. Sensation appeared to be grossly intact and symmetrical with her opposite foot in essentiall y all positions, though there was a slight decreased sensation on the left dorsal lateral aspect of t he foot, but this is likely due to her resolving cellulitis. STUDIES 1. X-ray findings in the past had shown that she had some mild spine spinal stenosis at the L4-L5 le kaity. 2. CT scan that was done on this admission showed no evidence of any lumbar spine fractures. There is a mild central canal narrowing with a disk protrusion at the L4-L5 level as well. L2-L3 disk bulg e is also noted with mild central canal narrowing. There was a moderate L4-L5 on the left side neura l foraminal narrowing, likely from spinal stenosis as well. ASSESSMENT 1. Subacute right drop foot - possibly from lumbar spine abnormalities, though by history, it seems as though she has had spinal stenosis in the past, which did not manifest in this drop foot until the last 4-6 weeks. 2. Lumbar spinal stenosis - visible at multiple levels on recent CT scan. By history, this may have been present sometime in the past. 3. Mild lumbar disc herniations. PLAN 1. Patient is being discharged from her inpatient hospitalization for cellulitis on her left foot. Would suggest that she be given a Cam walker for her right side to assist in her drop foot deformity, at least on a temporary basis. There may be some restriction in its use because of the weight of th e CAM walker since she is a rather frail woman. In the meantime, an outpatient appointment with an o rthopedist would be recommended so she can be fitted for a more light weight plastic AFO brace to hel p with her foot drop. With regard to workup of the possible connection between her foot drop and her spine abnormalities, would suggest an outpatient appointment with a neurologist to have a nerve cond uction study to determine the cause of the foot drop, whether it could be from her peripheral roberto shakira abnormality versus a more central spinal nerve root abnormality such as a disc herniation or spi nal stenosis. Depending on her clinical presentation and the results of that workup, she may need to have her primary care physician refer her to a spine surgeon for consideration of decompression of h er lumbar spine, to see if this would improve her lower leg functioning. In the meantime, mild anti- inflammatory medications may be of some help to relieve any inflammation that may be aggravating some of her potential lumbar spine nerve root irritation and subsequent drop foot symptoms. TD: 04/04/2018 11:33
--- NOTE | 2018-04-04 11:56 | DISCHARGE SUMMARY ---
"Discharge Summary Discharge Date: 04/04/18 Discharging Provider: VANN Primary Care Provider: Dr. Rosa Condition at Discharge: Poor Discharge Disposition: Home Health Service Discharge Facility Name: home - DIAGNOSES Admission Diagnoses: (1) Cellulitis of both feet (2) History of right foot drop (3) Neuropathic pain of both feet (4) Tobacco use disorder, continuous (5) Hypokalemia (6) Hyperlipidemia (7) Macrocytosis without anemia (8) Alcohol abuse (9) Hypertension (10) Lumbar radiculopathy (11) Advanced care planning/counseling discussion Discharge Diagnoses with Status of Each Condition: 1) Cellulitis of both feet great improved, WBC is normal. no tenderness, no warm, no swelling. Clindamycin is prescribed to finish the course. (2) History of right foot drop consult with orthopedics surgeon. pt is provided CAM walker by orthopedics. pt is advised to followup elementary principal and neurologist as out-pt. Discussed with pt about result of CT of spinal, answer all her questions. (3) Neuropathic pain of both feet resolved (4) Tobacco use disorder, continuous advise pt quit tobacco smoking (5) Hypokalemia resolved (6) Hyperlipidemia resume home meds (7) Macrocytosis without anemia advise pt quit alcoholism (8) Alcohol abuse advise pt quit alcoholism (9) Hypertension stable, resume home meds (10) Lumbar radiculopathy discussed with pt the result of CT of spinal, advise followup elementary principal and neurologist as out-pt for further evaluation (11) Advanced care planning/counseling discussion discuss with pt about advanced care planning (12) tachycardia pt is prescribed Metoprolol to control heart rate - HPI History of Present Illness: refer from Dr. Quintero's HPI on 04/02/18 for pt as the followin-year-old female with hx copd, chronic tobacco/etoh abuse disorder, HTN, HLP, survivor of breast cancer s/p lumpectomy and chemotx currently on anastazole with hx of DVT in past, chronic back pain, OA, osteoporosis, with recent diagnosis of right foot drop p/w swelling in her lower extremities. Patient was seen by her PCP and had an ultrasound to rule out DVT and she was not placed on diuretic as her potassium was low. She has had some improvement in the swelling with elevation of her legs and today she is developed sudden pain and redness to the left lower extremity and she has a blister on the dorsum of that foot which ruptured yesterday. Patient states that she continues to smoke and drink despite her ongoing right foot drop and chronic back pain with lumbar radiculopathy with no recent trauma, K was 3.3 with ETOh level of 212.1, macrocytosis with transaminitis along with lactic acid of 2.6 observed with mild leukopenia. Initial exam showed BLLE pitting edema 2-3+ with erythematous portions of feet BL extending up to pretibial aspects of legs with a ruptured blister to the left dorsum and associated warmth. There was very distinct minimal dorsi/plantar- flexion deficits to R-foot with some decreased 2 pt discrimination and tender left foot dorsum. 1+pulses on BLLE mainly due to edema. IV rocephin started in ED. Patient states subjective fevers, chills with a smokers cough w/o joint tenderness, diarrhea, CP, SOB, seizures or etoh withdrawals, bowel or bladder incontinence. - CONSULTS | PROCEDURES Consultations: Denver Ren. orthopedics Procedures: Pt is provided with CAM walker - HOSPITAL COURSE Hospital Course: pt was admitted for cellulitis of bilateral lower extremities. After antibiotics treatment, pt's infection was got a great improved and controlled. There was no redness, warm, tenderness or swelling after treatment. pt is prescribe antibi otics to finish the course. pt also complain of her chronic right foot drop which happened about one month ago. Orthopedics was consulted. pt is prescribed CAM walker, advise followup elementary principal and neurologist as out-pt. Pt refused to have Home health PT with our service. Then pt is advised to have home health as out-pt pt is advised to quit cigarette smoking and alcoholism - ALLERGIES Allergies/Adverse Reactions: Allergies Allergy/AdvReac Type Severity Reaction Status Date / Time Latex, Natural Rubber Allergy Rash Verified 04/02/18 20:58 lisinopril Allergy Respiratory Verified 04/02/18 20:58 - MEDICATIONS Home Medications: Ambulatory Orders Medication Instructions Recorded Confirmed Telmisartan/Hydrochlorothiazid 1 tab PO DAILY 04/02/18 04/02/18 [Telmisartan-Hctz 80-25 mg Tab] Albuterol Sulfate [Albuterol 1 - 2 puffs IH DAILY 04/03/18 04/03/18 Sulfate Hfa] Clindamycin [Cleocin] 300 mg PO Q6H 6 Days #48 capsule 04/04/18 Lactobacillus Rhamnosus GG 1 cap PO DAILY #6 capsule 04/04/18 [Culturelle] Metoprolol Succinate [Toprol Xl] 25 mg PO DAILY #10 tablet 04/04/18 - PHYSICAL EXAM AT DISCHARGE General Appearance: positive: No acute distress, Alert. negative: Lethargic Eyes Bilateral: positive: Normal inspection, PERRL, No lid inflammation, Conjunctivae nml ENT: positive: ENT inspection nml, Pharynx nml, No signs of dehydration. negative: Purulent nasal drainage, Pharyngeal erythema, Oral lesions Neck: positive: Nml inspection, Thyroid nml, No JVD, Trachea midline. negative: Thyromegaly, Lymphadenopathy (R), Lymphadenopathy (L), Stiff neck, Swelling/bruising, Tracheal deviation Respiratory: positive: Chest non-tender, No respiratory distress, Breath sounds nml. negative: Wheezes, Rales, Rhonchi Cardiovascular: positive: Regular rate & rhythm, No murmur, No gallop. negative: Irregularly irregular, Extrasystoles, Tachycardia, Bradycardia, JVD present, Systolic murmur, Diastolic murmur Peripheral Pulses: positive: 2+ Abdomen: positive: Non-tender, No organomegaly, Nml bowel sounds, No distention. negative: Tenderness, Guarding, Rebound Back: positive: Nml inspection. negative: CVA tenderness (R), CVA tenderness (L) Skin: positive: Color nml, No rash, Warm, Dry. negative: Cyanosis, Diaphoresis, Pallor Extremities: positive: Non-tender. negative: Calf tenderness, Joint swelling, Eleanor's sign/cords Neurologic/Psychiatric: positive: Oriented x3, Sensation nml, Mood/affect nml. negative: Weakness, Sensory loss, Facial droop, Slurred/abnml speech, Depressed mood/affect - LABS Result Diagrams: 04/04/18 05:42 04/04/18 05:42 - SEPSIS Current Stage of Sepsis: Ruled out - FOLLOW UP Follow Up: ou may followup your PCP in one week, followup [facility] Supervisor and neurologist for the care of your right foot drop as out-pt, one CAM walker is ordered by our orthopedics for you, home health PT is arranged for you. Antibiotics Clindamycin is ordered for you to finish the antibiotics course. Metoprolol is ordered for you to control your heart rate. Should your symptoms return or worsen, you may present ER or call 911 or call your PCP for help. - TIME SPENT Time Spent in Discharge (Minutes): 55"
[2018-04-04] MEDS ORDERED: HEPARIN 5,000 UNIT/ML VIAL SUBQ SCH (21:00)
== END 2018-04-04 14:20 | disposition home health service (06) | DRG 603 ==
LOC: ED 20:52 → MS2 23:07
PROVIDERS: ADMIT Family Medicine; ATTEND Nurse Practitioner Gerontology
DX: L03.116 Cellulitis of left lower limb (principal); L03.115 Cellulitis of right lower limb; G62.9 Polyneuropathy, unspecified; E78.00 Pure hypercholesterolemia, unspecified; E87.6 Hypokalemia; E78.5 Hyperlipidemia, unspecified; G89.29 Other chronic pain; M54.9 Dorsalgia, unspecified; F17.200 Nicotine dependence, unspecified, uncomplicated; D75.89 Other specified diseases of blood and blood-forming organs; F10.20 Alcohol dependence, uncomplicated; I10 Essential (primary) hypertension; M19.90 Unspecified osteoarthritis, unspecified site; M81.0 Age-related osteoporosis without current pathological fracture; F17.210 Nicotine dependence, cigarettes, uncomplicated; M48.061 Spinal stenosis, lumbar region without neurogenic claudication; M51.16 Intervertebral disc disorders with radiculopathy, lumbar region; R00.0 Tachycardia, unspecified; J44.9 Chronic obstructive pulmonary disease, unspecified; Z92.21 Personal history of antineoplastic chemotherapy; Z86.718 Personal history of other venous thrombosis and embolism; M21.371 Foot drop, right foot; D72.819 Decreased white blood cell count, unspecified; R74.0 Nonspecific elevation of levels of transaminase and lactic acid dehydrogenase [LDH]; Z85.3 Personal history of malignant neoplasm of breast
CPT/HCPCS: 36415; 71045; 71046; 72133; 80053; 80061; 80320; 82550; 82607; 82746; 83605; 83690; 83721; 83735; 84425; 84443; 84484; 84630; 85025; 85379; 85610; 85651; 87040; 93005; 93925; 94640; 96365; 96375; 99283; 99284

== ENCOUNTER 2018-04-16 11:43 | Emergency (ER) | payer MEDICARE, OTHER ==
--- NOTE | 2018-04-16 13:54 | ED Physician Documentation ---
PD HPI SKIN - Stated complaint Stated Complaint: LEG INFECTION - Chief complaint Chief Complaint: Wound - History obtained from History obtained from: Patient, Family - History of Present Illness Timing - onset: How many days ago (2-3) Timing - duration: Days Timing - details: Gradual onset Location: LLE (dorsum left foot and ankle mostly, but some to right foot as well the past day.) Quality / character: Burning, Discolored (red), Swelling Associated symptoms: Myalgias. No: Fever, N/V/D Similar symptoms before: Diagnosis (cellulitis and foot wound, improved in hospital with IV abx and then d/c on CLindamycin with continued improvement to gone, per patient and daughter, though with persistent small ulceration. Redness back the past few days. 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 : None HEENT: None Psych: None Musculoskeletal: Osteoarthritis, Osteoporosis, Chronic back pain Derm: None - Past Surgical History Past Surgical History: Yes General: Other - Present Medications Home Medications: Ambulatory Orders Medication Instructions Recorded Confirmed Telmisartan/Hydrochlorothiazid 1 tab PO DAILY 04/02/18 04/02/18 [Telmisartan-Hctz 80-25 mg Tab] Albuterol Sulfate [Albuterol 1 - 2 puffs IH DAILY 04/03/18 04/03/18 Sulfate Hfa] Clindamycin [Cleocin] 300 mg PO Q6H 6 Days #48 capsule 04/04/18 Lactobacillus Rhamnosus GG 1 cap PO DAILY #6 capsule 04/04/18 [Culturelle] Metoprolol Succinate [Toprol Xl] 25 mg PO DAILY #10 tablet 04/04/18 Doxycycline Hyclate 100 mg PO BID #20 capsule 04/16/18 Mupirocin 1 applic TP TID #15 g 04/16/18 - Allergies Allergies/Adverse Reactions: Allergies Allergy/AdvReac Type Severity Reaction Status Date / Time Latex, Natural Rubber Allergy Rash Verified 04/16/18 11:49 lisinopril Allergy Respiratory Verified 04/16/18 11:49 - Social History Does the pt smoke?: Yes Smoking Status: Current every day smoker Does the pt drink ETOH?: Yes Does the pt have substance abuse?: No - Immunizations Immunizations are current?: Yes - POLST Patient has POLST: No POLST Status: Full Code PD ED PE NORMAL - Vitals Vital signs reviewed: Yes - General General: Alert and oriented X 3, No acute distress, Well developed/nourished - Neck Neck: Supple, no meningeal sign, No adenopathy - Cardiac Cardiac: RRR, No murmur - Respiratory Respiratory: Clear bilaterally - Abdomen Abdomen: Soft, Non tender - Derm Derm: Normal color, Warm and dry, Other (small ulceration dorsum left foot with faint moisture at yellow base. 1 cm diamater, without fluid underneath. There is redness and swelling dorsum foot to ankle. Dorsum right foot with some redness but not warm like the left. No skin sores on right. ) - Extremities Extremities: Other - Neuro Neuro: No motor deficit, No sensory deficit Results - Vitals Vitals: Vital Signs - 24 hr 04/16/18 04/16/18 04/16/18 11:47 13:51 16:53 Temperature 36.6 C Heart Rate 106 H 112 H Respiratory 18 18 18 Rate Blood Pressure 152/90 H 158/89 H O2 Saturation 99 97 Oxygen O2 Source Room air - Labs Labs: Microbiology 04/16/18 14:25 Wound Culture - Preliminary Foot - Left Laboratory Tests 04/16/18 04/16/18 04/16/18 14:41 14:41 14:41 WBC 7.4 RBC 3.95 L Hgb 14.4 Hct 41.8 MCV 106.0 H MCH 36.5 H MCHC 34.4 RDW 13.8 Plt Count 277 MPV 9.1 Neut # (Auto) 5.8 Lymph # (Auto) 0.9 L [place] # (Auto) 0.5 Eos # (Auto) 0.0 Baso # (Auto) 0.1 Absolute Nucleated RBC 0.00 Nucleated RBC % 0.0 ESR 3 Sodium 139 Potassium 4.1 Chloride 104 Carbon Dioxide 24 Anion Gap 11.0 BUN 6 Creatinine 0.3 L Estimated GFR (MDRD) 220 Glucose 90 Calcium 8.3 L Total Bilirubin 0.7 AST 115 H ALT 57 Alkaline Phosphatase 188 H Total Protein 5.6 L Albumin 2.9 L Globulin 2.7 Albumin/Globulin Ratio 1.1 Lipase 32 - Rads (name of study) left foot Radiology: Prelim report reviewed, EMP read contemporaneously (no bony lesions nor subcut air seen. ), See rad report PD MEDICAL DECISION MAKING - ED course Complexity details: reviewed results, considered differential, d/w patient Departure - Departure Disposition: Home, Self Care Clinical Impression: Cellulitis of both feet, Foot infection Condition: Stable Record reviewed to determine appropriate education?: Yes Instructions: ED Infec Skin Cellulitis Follow-Up: SHAKIRA ARANA [Primary Care Provider] - Prescriptions: Doxycycline Hyclate 100 mg PO BID #20 capsule Mupirocin 1 applic TP TID #15 g Comments: Doxycycline antibiotic twice daily for 7-10 days for the infection. Wrap and elevate the legs often to reduce swelling. Remove the wraps and cleanse the wound daily and apply mupirocin antibiotic ointment. You can soak it in warm water before the ointment and rewrapping. Tylenol or ibuprofen if needed for fever pains. Follow-up with your primary care in the next several days and call tomorrow morning for an appointment. Return if worsening symptoms despite the above treatment. Discharge Date/Time: 04/16/18 17:39
[2018-04-16] MEDS ORDERED: VANCOMYCIN INJ 1 GM in SODIUM CHLORIDE 0.9% 500 ML IV STA (14:24)
[2018-04-16] MEDS ORDERED: cefTRIAXone 1 GM VIAL IVP STA (14:24)
[2018-04-16] MEDS ORDERED: MUPIROCIN 2% OINT 1 GM TOP STA (14:27)
[2018-04-16 15:01] LABS: BASOPHILS # (AUTO) 0.1 10^3/uL (0.0-0.1); BASOPHILS % (AUTO) 1.5 %; EOSINOPHILS % (AUTO) 0.2 %; HGB - HEMOGLOBIN 14.4 g/dL (12.0-16.0); LYMPHOCYTES # (AUTO) 0.9 10^3/uL (1.5-3.5); LYMPHOCYTES % (AUTO) 12.4 %; MEAN CORPUSCULAR HEMOGLOBIN 36.5 pg (27.0-31.0); MEAN CORPUSCULAR HGB CONC 34.4 g/dL (32.0-36.0); MEAN PLATELET VOLUME 9.1 fL (7.9-10.8); MONOCYTES # (AUTO) 0.5 10^3/uL (0.0-1.0); MONOCYTES % (AUTO) 7.1 %; NEUTROPHILS # (AUTO) 5.8 10^3/uL (1.5-6.6); NEUTROPHILS % (AUTO) 78.8 %; PLT - PLATELET COUNT 277 10^3/uL (130-450); RED BLOOD COUNT 3.95 10^6/uL (4.20-5.40); RED CELL DISTRIBUTION WIDTH 13.8 % (12.0-15.0); WHITE BLOOD COUNT 7.4 x10^3/uL (4.8-10.8)
[2018-04-16 15:12] LABS: ALBUMIN 2.9 g/dL (3.2-5.5); ALBUMIN/GLOBULIN RATIO 1.1 (1.0-2.2); BILIRUBIN,TOTAL 0.7 mg/dL (0.2-1.0); CALCIUM 8.3 mg/dL (8.5-10.3); CREATININE 0.3 mg/dL (0.4-1.0); TOTAL PROTEIN 5.6 g/dL (6.7-8.2)
--- NOTE | 2018-04-16 15:31 | XRAY Report ---
Reason: left foot recurrent infection Procedure Date: 04/16/2018 Accession Number: [id number] / [id number] Procedure: XR - Foot 3 View LT CPT Code: FULL RESULT: EXAM: LEFT FOOT RADIOGRAPHY EXAM DATE: 04/16/2018 02:44 PM. CLINICAL HISTORY: Left foot recurrent infection. COMPARISON: None. TECHNIQUE: 3 views. FINDINGS: Bones: Normal. No fractures or bone lesions. Joints: Mild osteoarthritic changes present. No subluxations. Soft Tissues: Mild distal soft tissue swelling noted. IMPRESSION: Mild distal soft tissue swelling noted with mild osteoarthritic changes. No acute bony abnormality seen. RADIA
[2018-04-16 16:53] VITALS: BP 158/89
== END 2018-04-16 17:39 | disposition home or self-care (01) ==
LOC: ED 11:43
DX: L03.116 Cellulitis of left lower limb (principal); L03.115 Cellulitis of right lower limb; L97.529 Non-pressure chronic ulcer of other part of left foot with unspecified severity; M19.072 Primary osteoarthritis, left ankle and foot; I10 Essential (primary) hypertension; Z86.718 Personal history of other venous thrombosis and embolism; F17.200 Nicotine dependence, unspecified, uncomplicated
CPT/HCPCS: 36415; 73630; 80053; 83690; 85025; 85651; 87070; 87205; 96365; 96366; 96375; 99283; 99284; A9270; J3370

== ENCOUNTER 2018-05-23 14:30 | Outpatient (CLI) | payer MEDICARE, OTHER ==
--- NOTE | 2018-05-23 20:52 | MRI Report ---
Reason: OTHER ABNORMALITIES OF GAIT AND MOBILITY Procedure Date: 05/23/2018 Accession Number: [id number] / [id number] Procedure: MRI - Lumbar Spine W/O CPT Code: FULL RESULT: EXAM: MRI LUMBAR SPINE WITHOUT CONTRAST EXAM DATE: 05/23/2018 03:13 PM. CLINICAL HISTORY: Other abnormalities of gait and mobility. COMPARISON: LUMBAR SPINE W/WO 04/03/2018 12:03 AM. TECHNIQUE: Multiplanar, multisequence T1-weighted and fluid-sensitive sequences of the lumbar spine from T12 to S1 without contrast. Other: None. FINDINGS: There is mild atrophy of the paraspinal musculature and the psoas musculature. The abdominal aorta is of normal caliber. The kidneys are without evidence of hydronephrosis. The images are degraded by motion. The images of the liver and the spleen that are within the provided field of view exhibit normal signal intensities. There is desiccation of the disk spaces throughout the lumbar spine. There is a moderate decrease in the height of the disk at T10-T11, mild at T11-T12, T12-L1, L1-L2, mild to moderate at L2-L3, moderate to severe at L3-L4, and L4-L5. There is a mixture of Modic type I and type II endplate degenerative change within the L3-L4, L4-L5, and L5-S1 endplates. T12-L1: There is a minimal disk bulge abutting the sac producing a minimal central canal stenosis. There is mild narrowing of the left neural foramen. L1-L2: There is a small disk osteophyte complex abutting the sac producing mild central canal stenosis. The facets are normal. There is mild neural foraminal narrowing bilaterally. There is no significant change at this level. L2-L3: There is a small disk osteophyte complex with annular tear abutting the sac producing a mild central canal stenosis. There is a small superimposed central protrusion of the disk. The facets are normal. There is mild to moderate neural foraminal narrowing bilaterally. L3-L4: There is a small disk osteophyte complex abutting the sac producing a mild central canal stenosis. The facets are normal. There is moderate right and left foraminal stenosis. L4-L5: There is a broad-based disk osteophyte complex with superimposed central extrusion of the disk producing a mild central canal stenosis. There is mild left facet arthropathy. There is moderate right and left neural foraminal narrowing. L5-S1: There is a small disk bulge abutting the sac without significant central canal stenosis. There is mild left and right neural foraminal narrowing. IMPRESSION: 1. There are mild central canal stenoses from small disk osteophyte complexes at L1-L2, L2-L3, L3-L4, and L4-L5. 2. There are multilevel degenerative changes of the disk as detailed above. Comment: The following findings are so common in adults without low back pain that while we report their presence, they must be interpreted with caution and in the context of the clinical situation. (Reference Miguel et al, Spine 2001) Prevalence of findings in patients without low back pain: Disk degeneration (any evidence): 92% Disk desiccation/T2 signal loss: 83% Disk height loss: 56% Disk bulge: 64% Disk protrusion: 32% Annular tear/high intensity zone: 38% RADIA
== END 2018-05-23 14:31 | disposition home or self-care (01) ==
LOC: DI 14:30
PROVIDERS: ATTEND Family Medicine
DX: M51.36 Other intervertebral disc degeneration, lumbar region (principal); M48.061 Spinal stenosis, lumbar region without neurogenic claudication; M47.9 Spondylosis, unspecified; M51.34 Other intervertebral disc degeneration, thoracic region
CPT/HCPCS: 72148

== ENCOUNTER 2018-08-04 01:43 | Inpatient (IN) | payer MEDICARE, OTHER ==
[2018-08-04 02:10] LABS: BASOPHILS # (AUTO) 0.1 10^3/uL (0.0-0.1); BASOPHILS % (AUTO) 0.6 %; EOSINOPHILS % (AUTO) 0.2 %; HGB - HEMOGLOBIN 14.5 g/dL (12.0-16.0); LYMPHOCYTES # (AUTO) 1.7 10^3/uL (1.5-3.5); LYMPHOCYTES % (AUTO) 9.3 %; MEAN CORPUSCULAR HEMOGLOBIN 37.2 pg (27.0-31.0); MEAN CORPUSCULAR HGB CONC 34.9 g/dL (32.0-36.0); MEAN CORPUSCULAR VOLUME 106.7 fL (81.0-99.0); MEAN PLATELET VOLUME 10.9 fL (7.9-10.8); MONOCYTES # (AUTO) 2.1 10^3/uL (0.0-1.0); MONOCYTES % (AUTO) 11.6 %; NEUTROPHILS # (AUTO) 13.9 10^3/uL (1.5-6.6); NEUTROPHILS % (AUTO) 77.3 %; PLT - PLATELET COUNT 246 10^3/uL (130-450)
[2018-08-04 02:27] LABS: ALBUMIN 2.4 g/dL (3.2-5.5); ALBUMIN/GLOBULIN RATIO 0.8 (1.0-2.2); ALKALINE PHOSPHATASE 410 IU/L (42-121); ALT ALANINE AMINOTRANSFERASE 51 IU/L (10-60); AST ASPARTATE AMINOTRANSFERASE 127 IU/L (10-42); BILIRUBIN,TOTAL 2.7 mg/dL (0.2-1.0); BUN - BLOOD UREA NITROGEN < 5 mg/dL (6-20); CALCIUM 8.2 mg/dL (8.5-10.3); CARBON DIOXIDE - CO2 25 mmol/L (21-32); CHLORIDE 92 mmol/L (101-111); CREATININE 0.4 mg/dL (0.4-1.0); GFR - MDRD 158 (>89); GLUCOSE 112 mg/dL (70-100); LIPASE 37 U/L (22-51); SODIUM 130 mmol/L (135-145); TOTAL PROTEIN 5.6 g/dL (6.7-8.2)
--- NOTE | 2018-08-04 02:36 | XRAY Report ---
Reason: chest px, SOA Procedure Date: 08/04/2018 Accession Number: [id number] / [id number] Procedure: XR - Chest 1 View X-Ray CPT Code: 10768 FULL RESULT: EXAM: CHEST RADIOGRAPHY EXAM DATE: 08/04/2018 02:22 AM. CLINICAL HISTORY: Chest px, SOA. COMPARISON: CHEST 2 VIEW 04/03/2018 6:32 PM. TECHNIQUE: 1 view. FINDINGS: Lungs/Pleura: No focal opacities evident. No pleural effusion. No pneumothorax. Mediastinum: Within exam limitations, the cardiomediastinal contour is normal. Other: Surgical yesi are seen in the left breast. IMPRESSION: No acute infiltrates. RADIA
[2018-08-04 02:51] LABS: DIFFERENTIAL COMMENT MANUAL=AUTO DIFF; PLATELET ESTIMATE, MANUAL NORMAL (130-450,000) (NORMAL); RBC MORPHOLOGY (MULTIPLE) NORMAL APPEARANCE (NORMAL)
--- NOTE | 2018-08-04 03:49 | ED Physician Documentation ---
PD HPI CHEST PAIN - Stated complaint Stated Complaint: CP - Chief complaint Chief Complaint: Cardiac - History obtained from History obtained from: Patient, Family - History of Present Illness Timing - onset: Today Timing - onset during: Rest Timing - duration: Minutes Timing - details: Still present, Intermittant Pain level max: 6 Pain level now: 2 Quality: Pain Location: Substernal Radiation: Left upper extremity Improved by: Rest Worsened by: Exertion Associated symptoms: Shortness of air, Nausea, General Weakness Recently seen: Not recently seen - Additional information Additional information: also c/o generalized weakness, poor appetite. she says for several days, she has epigastric pain with any PO intake Review of Systems Constitutional: reports: Reviewed and negative Eyes: reports: Reviewed and negative Ears: reports: Reviewed and negative Nose: reports: Reviewed and negative Cardiac: reports: Chest pain / pressure. denies: Palpitations Respiratory: reports: Dyspnea GI: reports: Abdominal Pain, Nausea, Vomiting : denies: Dysuria, Frequency Skin: reports: Reviewed and negative Musculoskeletal: reports: Reviewed and negative Neurologic: reports: Generalized weakness. denies: Focal weakness, Numbness PD PAST MEDICAL HISTORY - Past Medical History Past Medical History: Yes Cardiovascular: None, Congestive heart failure, Hypertension, High cholesterol, Deep vein thrombosis, [place] Respiratory: COPD Neuro: Other Endocrine/Autoimmune: None GI: None [employer]: Breast cancer : None HEENT: None Psych: None Musculoskeletal: Osteoarthritis, Osteoporosis, Chronic back pain Derm: None - Past Surgical History Past Surgical History: Yes General: Colonoscopy, Other - Present Medications Home Medications: Ambulatory Orders Medication Instructions Recorded Confirmed Telmisartan/Hydrochlorothiazid 1 tab PO DAILY 04/02/18 08/04/18 [Telmisartan-Hctz 80-25 mg Tab] Albuterol Sulfate [Albuterol 2 puffs IH Q4H PRN 04/03/18 08/04/18 Sulfate Hfa] - Allergies Allergies/Adverse Reactions: Allergies Allergy/AdvReac Type Severity Reaction Status Date / Time Latex, Natural Rubber Allergy Rash Verified 04/16/18 11:49 lisinopril Allergy Respiratory Verified 04/16/18 11:49 - Social History Does the pt smoke?: Yes Smoking Status: Current every day smoker Does the pt drink ETOH?: Yes Does the pt have substance abuse?: No - Immunizations Immunizations are current?: Yes - POLST Patient has POLST: No POLST Status: Full Code PD ED PE NORMAL - Vitals Vital signs reviewed: Yes - General General: Alert and oriented X 3, No acute distress, Well developed/nourished - HEENT HEENT: Other (pasty/tacky mucous membranes) - Neck Neck: Supple, no meningeal sign - Cardiac Cardiac: No murmur - Respiratory Respiratory: No respiratory distress, Clear bilaterally - Abdomen Abdomen: Normal bowel sounds, Soft, Non tender, Non distended - Derm Derm: Normal color - Extremities Extremities: No edema - Neuro Neuro: Alert and oriented X 3, licensed clinician 2-12 intact, No motor deficit, No sensory deficit, Normal speech Eye Opening: Spontaneous Motor: Obeys Commands Verbal: Oriented GCS Score: 15 PD ED PE EXPANDED - Eyes Eyes: Injected conj/sclera, Exudate - Cardiac Cardiac: Tachy, Regular Rhythm Results - Vitals Vitals: Vital Signs - 24 hr 08/04/18 08/04/18 08/04/18 15:39 19:21 23:48 Temperature 36.5 C 36.5 C 36.7 C Heart Rate Heart Rate [ 90 82 56 L Brachial] Respiratory 18 15 16 Rate Blood Pressure 116/58 L 98/50 L 94/62 [Right Brachial artery] O2 Saturation 99 100 98 08/05/18 08/05/18 08/05/18 00:58 05:03 06:15 Temperature 36.5 C Heart Rate Heart Rate [ 71 70 Brachial] Respiratory 18 16 Rate Blood Pressure 89/53 L 90/47 L 81/43 L [Right Brachial artery] O2 Saturation 94 08/05/18 08/05/18 08/05/18 07:36 07:43 08:00 Temperature 36.6 C Heart Rate 66 Heart Rate [ 70 76 Brachial] Respiratory 18 18 17 Rate Blood Pressure 92/49 L 66/51 L [Right Brachial artery] O2 Saturation 99 08/05/18 08/05/18 08:10 08:11 Temperature Heart Rate Heart Rate [ 72 70 Brachial] Respiratory Rate Blood Pressure 87/45 L 85/42 L [Right Brachial artery] O2 Saturation Oxygen O2 Source Nasal cannula - Labs Labs: Microbiology 08/04/18 07:50 Blood Culture - Preliminary Blood NO GROWTH AFTER 1 DAY 08/04/18 06:48 Blood Culture - Preliminary Blood - Right Arm NO GROWTH AFTER 1 DAY Laboratory Tests 08/04/18 08/04/1808/04/19 02:00 02:00 02:00 WBC 18.0 H RBC 3.90 L Hgb 14.5 Hct 41.6 MCV 106.7 H MCH 37.2 H MCHC 34.9 RDW 13.0 Plt Count 246 MPV 10.9 H Reticulocyte % (Auto) Neut # (Auto) 13.9 H Lymph # (Auto) 1.7 [place] # (Auto) 2.1 H Eos # (Auto) 0.0 Baso # (Auto) 0.1 Absolute Nucleated RBC 0.00 Band Neuts % (Manual) Not Reportable Abnorm Lymph % (Manual) Not Reportable Nucleated RBC % 0.0 Neutrophils # (Manual) Not Reportable Lymphocytes # (Manual) Not Reportable Monocytes # (Manual) Not Reportable Eosinophils # (Manual) Not Reportable Basophils # (Manual) Not Reportable Differential Comment MANUAL=AUTO DIFF Platelet Estimate NORMAL (130-450,000) RBC Morph Micro Appear NORMAL APPEARANCE Absolute Retic PT INR Sodium 130 L Potassium 3.7 Chloride 92 L Carbon Dioxide 25 Anion Gap 13.0 BUN < 5 L Creatinine 0.4 Estimated GFR (MDRD) 158 Glucose 112 H Calcium 8.2 L Phosphorus Magnesium Iron % Saturation Transferrin Ferritin Total Bilirubin 2.7 H AST 127 H ALT 51 Alkaline Phosphatase 410 H Ammonia Lactate Dehydrogenase Troponin I < 0.04 B-Natriuretic Peptide Total Protein 5.6 L Albumin 2.4 L Globulin 3.2 Albumin/Globulin Ratio 0.8 L Lipase 37 Vitamin B12 TSH Urine Color Urine Clarity Urine pH Ur Specific [place] Urine Protein Urine Glucose (UA) Urine Ketones Urine Occult Blood Urine Nitrite Urine Bilirubin Urine Urobilinogen Ur Leukocyte Esterase Ur Microscopic Review Urine Culture Comments Ethyl Alcohol 08/04/18 08/04/18 08/04/18 02:00 02:00 05:39 WBC RBC Hgb Hct MCV MCH MCHC RDW Plt Count MPV Reticulocyte % (Auto) Neut # (Auto) Lymph # (Auto) [place] # (Auto) Eos # (Auto) Baso # (Auto) Absolute Nucleated RBC Band Neuts % (Manual) Abnorm Lymph % (Manual) Nucleated RBC % Neutrophils # (Manual) Lymphocytes # (Manual) Monocytes # (Manual) Eosinophils # (Manual) Basophils # (Manual) Differential Comment Platelet Estimate RBC Morph Micro Appear Absolute Retic PT INR Sodium Potassium Chloride Carbon Dioxide Anion Gap BUN Creatinine Estimated GFR (MDRD) Glucose Calcium Phosphorus Magnesium Iron % Saturation Transferrin Ferritin Total Bilirubin AST ALT Alkaline Phosphatase Ammonia Lactate Dehydrogenase Troponin I < 0.04 B-Natriuretic Peptide 60 Total Protein Albumin Globulin Albumin/Globulin Ratio Lipase Vitamin B12 TSH Urine Color Urine Clarity Urine pH Ur Specific [place] Urine Protein Urine Glucose (UA) Urine Ketones Urine Occult Blood Urine Nitrite Urine Bilirubin Urine Urobilinogen Ur Leukocyte Esterase Ur Microscopic Review Urine Culture Comments Ethyl Alcohol 54.8 08/04/18 08/04/18 08/04/18 05:39 06:48 06:48 WBC RBC Hgb Hct MCV MCH MCHC RDW Plt Count MPV Reticulocyte % (Auto) Neut # (Auto) Lymph # (Auto) [place] # (Auto) Eos # (Auto) Baso # (Auto) Absolute Nucleated RBC Band Neuts % (Manual) Abnorm Lymph % (Manual) Nucleated RBC % Neutrophils # (Manual) Lymphocytes # (Manual) Monocytes # (Manual) Eosinophils # (Manual) Basophils # (Manual) Differential Comment Platelet Estimate RBC Morph Micro Appear Absolute Retic PT 15.7 H INR 1.4 H Sodium Potassium Chloride Carbon Dioxide Anion Gap BUN Creatinine Estimated GFR (MDRD) Glucose Calcium Phosphorus Magnesium Iron % Saturation Transferrin Ferritin Total Bilirubin AST ALT Alkaline Phosphatase Ammonia Lactate Dehydrogenase Troponin I B-Natriuretic Peptide Total Protein Albumin Globulin Albumin/Globulin Ratio Lipase Vitamin B12 TSH 1.19 Urine Color YELLOW Urine Clarity CLEAR Urine pH 7.0 Ur Specific [place] <=1.005 Urine Protein NEGATIVE Urine Glucose (UA) NEGATIVE Urine Ketones NEGATIVE Urine Occult Blood NEGATIVE Urine Nitrite NEGATIVE Urine Bilirubin NEGATIVE Urine Urobilinogen 0.2 (NORMAL) Ur Leukocyte Esterase NEGATIVE Ur Microscopic Review NOT INDICATED Urine Culture Comments NOT INDICATED Ethyl Alcohol 08/04/18 08/05/18 08/05/18 18:35 04:15 04:15 WBC 12.6 H RBC 3.02 L Hgb 11.0 L Hct 32.6 L MCV 107.9 H MCH 36.4 H MCHC 33.7 RDW 13.1 Plt Count 169 MPV 11.4 H Reticulocyte % (Auto) Neut # (Auto) 9.9 H Lymph # (Auto) 1.2 L [place] # (Auto) 1.3 H Eos # (Auto) 0.1 Baso # (Auto) 0.1 Absolute Nucleated RBC 0.02 Band Neuts % (Manual) Abnorm Lymph % (Manual) Nucleated RBC % 0.2 Neutrophils # (Manual) Lymphocytes # (Manual) Monocytes # (Manual) Eosinophils # (Manual) Basophils # (Manual) Differential Comment Platelet Estimate RBC Morph Micro Appear Absolute Retic PT INR Sodium 136 Potassium 2.7 L Chloride 102 Carbon Dioxide 26 Anion Gap 8.0 BUN < 5 L Creatinine 0.4 Estimated GFR (MDRD) 158 Glucose 99 Calcium 7.1 L Phosphorus Magnesium 1.8 Iron % Saturation Transferrin Ferritin Total Bilirubin 2.0 H AST 74 H ALT 33 Alkaline Phosphatase 259 H Ammonia Lactate Dehydrogenase Troponin I < 0.04 B-Natriuretic Peptide Total Protein 3.8 L Albumin 1.6 L Globulin 2.2 Albumin/Globulin Ratio 0.7 L Lipase Vitamin B12 TSH Urine Color Urine Clarity Urine pH Ur Specific [place] Urine Protein Urine Glucose (UA) Urine Ketones Urine Occult Blood Urine Nitrite Urine Bilirubin Urine Urobilinogen Ur Leukocyte Esterase Ur Microscopic Review Urine Culture Comments Ethyl Alcohol 08/05/18 08/05/18 08/05/18 04:15 08:07 08:34 WBC RBC 3.38 L Hgb Hct MCV MCH MCHC RDW Plt Count MPV Reticulocyte % (Auto) 3.98 H Neut # (Auto) Lymph # (Auto) [place] # (Auto) Eos # (Auto) Baso # (Auto) Absolute Nucleated RBC Band Neuts % (Manual) Abnorm Lymph % (Manual) Nucleated RBC % Neutrophils # (Manual) Lymphocytes # (Manual) Monocytes # (Manual) Eosinophils # (Manual) Basophils # (Manual) Differential Comment Platelet Estimate RBC Morph Micro Appear Absolute Retic 0.135 H PT INR Sodium Potassium Chloride Carbon Dioxide Anion Gap BUN Creatinine Estimated GFR (MDRD) Glucose Calcium Phosphorus 3.1 Magnesium Iron % Saturation Transferrin Ferritin Total Bilirubin AST ALT Alkaline Phosphatase Ammonia 70.6 H Lactate Dehydrogenase Troponin I B-Natriuretic Peptide Total Protein Albumin Globulin Albumin/Globulin Ratio Lipase Vitamin B12 TSH Urine Color Urine Clarity Urine pH Ur Specific [place] Urine Protein Urine Glucose (UA) Urine Ketones Urine Occult Blood Urine Nitrite Urine Bilirubin Urine Urobilinogen Ur Leukocyte Esterase Ur Microscopic Review Urine Culture Comments Ethyl Alcohol 08/05/18 08/05/18 08/05/18 08:34 08:34 08:34 WBC RBC Hgb Hct MCV MCH MCHC RDW Plt Count MPV Reticulocyte % (Auto) Neut # (Auto) Lymph # (Auto) [place] # (Auto) Eos # (Auto) Baso # (Auto) Absolute Nucleated RBC Band Neuts % (Manual) Abnorm Lymph % (Manual) Nucleated RBC % Neutrophils # (Manual) Lymphocytes # (Manual) Monocytes # (Manual) Eosinophils # (Manual) Basophils # (Manual) Differential Comment Platelet Estimate RBC Morph Micro Appear Absolute Retic PT INR Sodium Potassium Chloride Carbon Dioxide Anion Gap BUN Creatinine Estimated GFR (MDRD) Glucose Calcium Phosphorus Magnesium Iron 72 % Saturation [employer]UM[employer] DESIGN[employer] Transferrin < 70 L Ferritin 710.4 H Total Bilirubin AST ALT Alkaline Phosphatase Ammonia Lactate Dehydrogenase 291 H Troponin I B-Natriuretic Peptide Total Protein Albumin Globulin Albumin/Globulin Ratio Lipase Vitamin B12 2338 H TSH Urine Color Urine Clarity Urine pH Ur Specific [place] Urine Protein Urine Glucose (UA) Urine Ketones Urine Occult Blood Urine Nitrite Urine Bilirubin Urine Urobilinogen Ur Leukocyte Esterase Ur Microscopic Review Urine Culture Comments Ethyl Alcohol - Rads (name of study) chest xray Radiology: Prelim report reviewed, See rad report PD MEDICAL DECISION MAKING - ED course Complexity details: reviewed results, re-evaluated patient, considered differential, d/w patient Departure - Departure Disposition: ED Place in Observation Clinical Impression: Chest pain Qualifiers: Chest pain type: unspecified Qualified Code(s): R07.9 - Chest pain, unspecified Dyspnea Qualifiers: Dyspnea type: unspecified Qualified Code(s): R06.00 - Dyspnea, unspecified Condition: Stable Discharge Date/Time: 08/04/18 07:40
[2018-08-04] MEDS ORDERED: IOVERSOL 320 100 ML VIAL IVP ONE ×3 (04:41→22:00)
--- NOTE | 2018-08-04 05:16 | CT Report ---
Reason: chest pain, dyspnea Procedure Date: 08/04/2018 Accession Number: [id number] / [id number] Procedure: CT - ANGIO CHEST W/WO CPT Code: FULL RESULT: EXAM: CT ANGIOGRAM CHEST EXAM DATE: 08/04/2018 04:58 AM. CLINICAL HISTORY: Chest pain, dyspnea. COMPARISON: None. TECHNIQUE: Routine helical imaging was performed through the chest in the pulmonary arterial phase. IV Contrast: Nonionic. Reconstructions: Coronal 3-D MIP reconstructions.Sagittal and coronal. In accordance with CT protocol optimization, one or more of the following dose reduction techniques were utilized for this exam: automated exposure control, adjustment of mA and/or KV based on patient size, or use of iterative reconstructive technique. FINDINGS: Pulmonary Arteries: Diagnostic quality: Adequate through the segmental arteries. No evidence for acute or chronic pulmonary emboli. No evidence of right heart strain. Lungs/Pleura: Emphysema. No alveolar consolidation or pleural effusion seen. No pneumothorax. Mediastinum: Heart size is normal. Coronary artery calcifications. No lymphadenopathy. Thoracic Aorta: Moderate atherosclerosis. Ascending aorta measures 3.2 cm. No aortic dissection. Upper Abdomen: Fatty liver. Moderate to large amount of ascites. Other: Osteopenia. IMPRESSION: 1. No pulmonary emboli seen. 2. Coronary artery calcifications. 3. Emphysema. 4. Fatty liver with moderate to large amount of ascites. [facility]
[2018-08-04] MEDS ORDERED: LORazepam 2 MG/ML VIAL IVP STA (05:19)
[2018-08-04 05:57] LABS: BILIRUBIN,URINE NEGATIVE (NEGATIVE); GLUCOSE, URINE (UA) NEGATIVE (NEGATIVE); KETONES,URINE (UA) NEGATIVE (NEGATIVE); LEUKOCYTE ESTERASE, URINE NEGATIVE (NEGATIVE); NITRITE,URINE NEGATIVE (NEGATIVE); OCCULT BLOOD,URINE NEGATIVE (NEGATIVE); PROTEIN,URINE NEGATIVE (NEGATIVE); UROBILINOGEN,URINE 0.2 (NORMAL) E.U./dL (NORMAL)
[2018-08-04 06:00] LABS: CLARITY,URINE CLEAR (CLEAR)
--- NOTE | 2018-08-04 06:17 | HISTORY & PHYSICAL EXAMINATION ---
Chief Complaint - Chief Complaint Chief Complaint: Abdominal pain with associated chills, poor appetite Abdominal Pain HPI - Admitted From Admitted from: ED - History Obtained From Records Reviewed: RN notes reviewed, Old records reviewed History obtained from: Patient Exam limitations: No limitations - History of Present Illness HPI Comment/Other: 68-year-old female with hx copd/emphysema, chronic tobacco/etoh abuse disorder, HTN, HLP, survivor of breast cancer s/p lumpectomy and chemotx currently on anastazole with hx of DVT in past, chronic back pain, OA, osteoporosis, with chronic right foot, BL edema to legs, 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 Also has abdominal pain, Subjective chills along with weakness with failure to thrive loss of appetite 10 pound weight loss for the past 2 to 3 weeks. Admits to smoking 1ppd and drinking etoh, here was found to have a ETOH level 54.8, Na 130, with transaminitis, low albumin, clinically with anasarca and 3+pitting edema to BLLE w/o cellulitis, afebrile with tachycardia, admits that she has withdrawals when she stops drinking. CTA showed no PE, but large amount of ascites, emphysema and a fatty liver. 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 : positive: None HEENT: positive: None Psych: positive: None Musculoskeletal: positive: Osteoarthritis, Osteoporosis, Chronic back pain Derm: positive: None, Other (edema) MRSA Hx?: No - Past Surgical History General: positive: Colonoscopy, Other Social & Family Hx - Social History Does the pt smoke?: Yes Smoking Status: Current every day smoker Does the pt drink ETOH?: Yes Does the pt have substance abuse?: No - POLST Patient has POLST: No POLST Status: Full Code Meds/Allgy - Home Medications Home Medications: Ambulatory Orders Medication Instructions Recorded Confirmed RX: Telmisartan/Hydrochlorothiazid 1 tab PO DAILY 04/02/18 04/02/18 [Telmisartan-Hctz 80-25 mg Tab] RX: Albuterol Sulfate [Albuterol 1 - 2 puffs IH DAILY 04/03/18 04/03/18 Sulfate Hfa] RX: Clindamycin [Cleocin] 300 mg PO Q6H 6 Days #48 capsule 04/04/18 RX: Lactobacillus Rhamnosus GG 1 cap PO DAILY #6 capsule 04/04/18 [Culturelle] RX: Metoprolol Succinate [Toprol 25 mg PO DAILY #10 tablet 04/04/18 Xl] RX: Doxycycline Hyclate 100 mg PO BID #20 capsule 04/16/18 RX: Mupirocin 1 applic TP TID #15 g 04/16/18 - Allergies Allergies/Adverse Reactions: Allergies Allergy/AdvReac Type Severity Reaction Status Date / Time Latex, Natural Rubber Allergy Rash Verified 04/16/18 11:49 lisinopril Allergy Respiratory Verified 04/16/18 11:49 Review of Systems - All Other Systems All Other Systems: reports: Reviewed and negative Prior Level of Functionality: Ambulatory and adequate home ADL's Exam - Vital Signs Reviewed Vital Signs: Yes Vital Signs: Vital Signs x48h Temp Pulse Resp BP BP Pulse Ox 08/04/18 05:00 113 H 26 H 144/85 H 96 08/04/18 03:29 116 H 22 156/88 H 94 08/04/18 02:17 181/94 H 08/04/18 02:07 120 H 24 181/94 H 99 08/04/18 01:48 36.5 C 122 H 19 181/98 H 100 - Physical Exam General Appearance: positive: No acute distress, Alert, Anxious Eyes Bilateral: positive: Normal inspection, PERRL, EOMI, Conjunctivae nml, No scleral icterus ENT: positive: ENT inspection nml, Pharynx nml, No signs of dehydration Neck: positive: Nml inspection, Thyroid nml, No JVD, Trachea midline. negative: Thyromegaly Respiratory: positive: Chest non-tender, No respiratory distress, Breath sounds nml Cardiovascular: positive: Regular rate & rhythm, No murmur, No gallop, Tachycardia. negative: JVD present Peripheral Pulses: positive: 1+ Abdomen: positive: No distention, Tenderness (to ruq and right flank), Hepatomegaly, Other (Anasarca present with ascites). negative: Mass, Abnml b owel sounds Extremities: positive: Full ROM, Other (3+pitting edema to BLLE). negative: Calf tenderness, Joint swelling Neurologic/Psychiatric: positive: Oriented x3, CN's nml (2-12), Other (somewhat anxious and mild tremors). negative: Facial droop, Slurred/abnml speech, Depressed mood/affect Results - Lab Results Lab results reviewed: Yes Fish Bones: 08/04/18 02:00 08/04/18 02:00 Other Lab Results: Lab Results x24hrs 08/04/18 08/04/18 08/04/18 Range/Units 05:39 05:39 02:00 WBC (4.8-10.8) x10^3/uL RBC (4.20-5.40) 10^6/uL Hgb (12.0-16.0) g/dL Hct (37.0-47.0) % MCV (81.0-99.0) fL MCH (27.0-31.0) pg MCHC (32.0-36.0) g/dL RDW (12.0-15.0) % Plt Count (130-450) 10^3/uL MPV (7.9-10.8) fL Neut # (Auto) (1.5-6.6) 10^3/uL Lymph # (Auto) (1.5-3.5) 10^3/uL Woodruff # (Auto) (0.0-1.0) 10^3/uL Eos # (Auto) (0.0-0.7) 10^3/uL Baso # (Auto) (0.0-0.1) 10^3/uL Absolute Nucleated RBC x10^3/uL Band Neuts % (Manual) Abnorm Lymph % (Manual) Nucleated RBC % /100WBC Neutrophils # (Manual) Lymphocytes # (Manual) Monocytes # (Manual) Eosinophils # (Manual) Basophils # (Manual) Differential Comment Platelet Estimate (NORMAL) RBC Morph Micro Appear (NORMAL) Sodium (135-145) mmol/L Potassium (3.5-5.0) mmol/L Chloride (101-111) mmol/L Carbon Dioxide (21-32) mmol/L Anion Gap (6-13) BUN (6-20) mg/dL Creatinine (0.4-1.0) mg/dL Estimated GFR (MDRD) (>89) Glucose (70-100) mg/dL Calcium (8.5-10.3) mg/dL Total Bilirubin (0.2-1.0) mg/dL AST (10-42) IU/L ALT (10-60) IU/L Alkaline Phosphatase (42-121) IU/L Troponin I < 0.04 (<0.49) ng/mL B-Natriuretic Peptide (5-100) pg/mL Total Protein (6.7-8.2) g/dL Albumin (3.2-5.5) g/dL Globulin (2.1-4.2) g/dL Albumin/Globulin Ratio (1.0-2.2) Lipase (22-51) U/L Urine Color YELLOW Urine Clarity CLEAR (CLEAR) Urine pH 7.0 (5.0-7.5) PH Ur Specific Bono <=1.005 (1.002-1.030) Urine Protein NEGATIVE (NEGATIVE) mg/dL Urine Glucose (UA) NEGATIVE (NEGATIVE) mg/dL Urine Ketones NEGATIVE (NEGATIVE) mg/dL Urine Occult Blood NEGATIVE (NEGATIVE) Urine Nitrite NEGATIVE (NEGATIVE) Urine Bilirubin NEGATIVE (NEGATIVE) Urine Urobilinogen 0.2 (NORMAL) (NORMAL) E.U./dL Ur Leukocyte Esterase NEGATIVE (NEGATIVE) Ur Microscopic Review NOT INDICATED Urine Culture Comments NOT INDICATED Ethyl Alcohol 54.8 mg/dL 08/04/18 08/04/18 08/04/18 Range/Units 02:00 02:00 02:00 WBC (4.8-10.8) x10^3/uL RBC (4.20-5.40) 10^6/uL Hgb (12.0-16.0) g/dL Hct (37.0-47.0) % MCV (81.0-99.0) fL MCH (27.0-31.0) pg MCHC (32.0-36.0) g/dL RDW (12.0-15.0) % Plt Count (130-450) 10^3/uL MPV (7.9-10.8) fL Neut # (Auto) (1.5-6.6) 10^3/uL Lymph # (Auto) (1.5-3.5) 10^3/uL Woodruff # (Auto) (0.0-1.0) 10^3/uL Eos # (Auto) (0.0-0.7) 10^3/uL Baso # (Auto) (0.0-0.1) 10^3/uL Absolute Nucleated RBC x10^3/uL Band Neuts % (Manual) Abnorm Lymph % (Manual) Nucleated RBC % /100WBC Neutrophils # (Manual) Lymphocytes # (Manual) Monocytes # (Manual) Eosinophils # (Manual) Basophils # (Manual) Differential Comment Platelet Estimate (NORMAL) RBC Morph Micro Appear (NORMAL) Sodium 130 L (135-145) mmol/L Potassium 3.7 (3.5-5.0) mmol/L Chloride 92 L (101-111) mmol/L Carbon Dioxide 25 (21-32) mmol/L Anion Gap 13.0 (6-13) BUN < 5 L (6-20) mg/dL Creatinine 0.4 (0.4-1.0) mg/dL Estimated GFR (MDRD) 158 (>89) Glucose 112 H (70-100) mg/dL Calcium 8.2 L (8.5-10.3) mg/dL Total Bilirubin 2.7 H (0.2-1.0) mg/dL AST 127 H (10-42) IU/L ALT 51 (10-60) IU/L Alkaline Phosphatase 410 H (42-121) IU/L Troponin I < 0.04 (<0.49) ng/mL B-Natriuretic Peptide 60 (5-100) pg/mL Total Protein 5.6 L (6.7-8.2) g/dL Albumin 2.4 L (3.2-5.5) g/dL Globulin 3.2 (2.1-4.2) g/dL Albumin/Globulin Ratio 0.8 L (1.0-2.2) Lipase 37 (22-51) U/L Urine Color Urine Clarity (CLEAR) Urine pH (5.0-7.5) PH Ur Specific Bono (1.002-1.030) Urine Protein (NEGATIVE) mg/dL Urine Glucose (UA) (NEGATIVE) mg/dL Urine Ketones (NEGATIVE) mg/dL Urine Occult Blood (NEGATIVE) Urine Nitrite (NEGATIVE) Urine Bilirubin (NEGATIVE) Urine Urobilinogen (NORMAL) E.U./dL Ur Leukocyte Esterase (NEGATIVE) Ur Microscopic Review Urine Culture Comments Ethyl Alcohol mg/dL 08/04/18 Range/Units 02:00 WBC 18.0 H (4.8-10.8) x10^3/uL RBC 3.90 L (4.20-5.40) 10^6/uL Hgb 14.5 (12.0-16.0) g/dL Hct 41.6 (37.0-47.0) % MCV 106.7 H (81.0-99.0) fL MCH 37.2 H (27.0-31.0) pg MCHC 34.9 (32.0-36.0) g/dL RDW 13.0 (12.0-15.0) % Plt Count 246 (130-450) 10^3/uL MPV 10.9 H (7.9-10.8) fL Neut # (Auto) 13.9 H (1.5-6.6) 10^3/uL Lymph # (Auto) 1.7 (1.5-3.5) 10^3/uL Woodruff # (Auto) 2.1 H (0.0-1.0) 10^3/uL Eos # (Auto) 0.0 (0.0-0.7) 10^3/uL Baso # (Auto) 0.1 (0.0-0.1) 10^3/uL Absolute Nucleated RBC 0.00 x10^3/uL Band Neuts % (Manual) Not Reportable Abnorm Lymph % (Manual) Not Reportable Nucleated RBC % 0.0 /100WBC Neutrophils # (Manual) Not Reportable Lymphocytes # (Manual) Not Reportable Monocytes # (Manual) Not Reportable Eosinophils # (Manual) Not Reportable Basophils # (Manual) Not Reportable Differential Comment MANUAL=AUTO DIFF Platelet Estimate NORMAL (130-450,000) (NORMAL) RBC Morph Micro Appear NORMAL APPEARANCE (NORMAL) Sodium (135-145) mmol/L Potassium (3.5-5.0) mmol/L Chloride (101-111) mmol/L Carbon Dioxide (21-32) mmol/L Anion Gap (6-13) BUN (6-20) mg/dL Creatinine (0.4-1.0) mg/dL Estimated GFR (MDRD) (>89) Glucose (70-100) mg/dL Calcium (8.5-10.3) mg/dL Total Bilirubin (0.2-1.0) mg/dL AST (10-42) IU/L ALT (10-60) IU/L Alkaline Phosphatase (42-121) IU/L Troponin I (<0.49) ng/mL B-Natriuretic Peptide (5-100) pg/mL Total Protein (6.7-8.2) g/dL Albumin (3.2-5.5) g/dL Globulin (2.1-4.2) g/dL Albumin/Globulin Ratio (1.0-2.2) Lipase (22-51) U/L Urine Color Urine Clarity (CLEAR) Urine pH (5.0-7.5) PH Ur Specific Bono (1.002-1.030) Urine Protein (NEGATIVE) mg/dL Urine Glucose (UA) (NEGATIVE) mg/dL Urine Ketones (NEGATIVE) mg/dL Urine Occult Blood (NEGATIVE) Urine Nitrite (NEGATIVE) Urine Bilirubin (NEGATIVE) Urine Urobilinogen (NORMAL) E.U./dL Ur Leukocyte Esterase (NEGATIVE) Ur Microscopic Review Urine Culture Comments Ethyl Alcohol mg/dL - Diagnostic Imaging Results Diagnostic Imaging Results: positive: Final report reviewed - EKG Results EKG Interpreted Independently: Yes EKG Comparison: positive: Old EKG unavailable Sepsis Event Note (H) - Evaluation Possible source of Sepsis: positive: GI tract/intra-abdominal - Sepsis Criteria Sepsis Criteria: Recorded Heart Rate greater than 90 bpm, WBC count greater than 12,000 or less than 4000 Impression/Plan - Problem List Problem List: 1. Acute early alcohol withdrawal -place on banana bag, ativan with ciwa protocol, supportive care 2. Suspected spontaneous bacterial peritonitis -treat empirically with po rifaximin along with IV rocephin 3. Hyponatremia, hypervolemia likely related to hemodilutiona effect from liver disease, monitor for now, check serum osm and urine osm 4. Uncontrolled hypertension -BP control, norvasc plus hydralazine prn for bp excursions, likely pain induced 5. Angina type chest pain -ntg prn, asa, lipid in am, ECHO 6. Ascites/Anasarca sec to etoh-induced liver disease Large ascites seen on CT, diuretics, med mgmt, fluid restriction, may need pa racentesis 7. ETOH induced hepatitis -monitor LFT's, needs to stop drinking. Supportive care and med mgmt 8. Chronic BLLE edema sec to liver disease -Etoh hepatitis, will start lasix plus aldactone 9. hypoalbuminemia -likely from etoh related nutrional def with decrease oncotic pressure contrib uting to anasarca and generalized edema. 10. Macrocytosis -H/H stable and no mention of UGIB/LGIB. Check b12/FA levels. 11. FTT wit anorexia and weight loss -BMI 19.2, etoh related nutrional deficiencies likely, will need nutritional consult here, treat underlying SBP to improve pain and increase PO intake. 12. Chronic etoh abuse disorder -Needs to be referred to AA by SW. Continue to address underlying nutritional def, med mgmt. 13. Chronic tobacco abuse disorder -offer nicotine replacement tx DVT/GI ppx initiated Code Status: FULL Core Measures - Anticipated LOS I expect patient to be DC'd or transferred within 96 hours.: Yes - DVT/VTE - Prophylaxis VTE/DVT Device ordered at admit?: Yes VTE/DVT Prophylaxis med ordered at admit?: Yes - Stroke - Rehab Assessment Rehab services assessment to be ordered?: No Not Ordered - Medical Reason: Not indicated - AMI - Statin at Admit Aspirin Prescribed on Admit: Yes
[2018-08-04] MEDS ORDERED: TEMAZEPAM 15 MG CAPSULE PO PRN (06:26)
[2018-08-04] MEDS ORDERED: NITROGLYCERIN SL 0.4 MG TABLET SL PRN (06:31)
[2018-08-04] MEDS ORDERED: hydrALAZINE INJ 20 MG/ML VIAL IVP PRN (06:49)
[2018-08-04 07:10] LABS: INR 1.4 (0.8-1.2); PT - PROTHROMBIN TIME 15.7 secs (9.9-12.6)
[2018-08-04] MEDS ORDERED: SPIRONOLACTONE 25 MG TABLET PO SCH (09:00)
[2018-08-04] MEDS ORDERED: [UNRECOGNIZED DRUG - OTHER] IV SCH ×15 (09:00→10:00)
[2018-08-04] MEDS ORDERED: cefTRIAXone 1 GM in SODIUM CHLORIDE 0.9% MINIBAG 100 ML IV SCH (09:00)
[2018-08-04] MEDS ORDERED: THIAMINE IV SCH ×15 (09:00→10:00)
[2018-08-04] MEDS: HEPARIN 5,000 UNIT/ML VIAL SUBQ SCH ×2 (09:00→21:16)
[2018-08-04] MEDS ORDERED: LORazepam 2 MG/ML VIAL IVP SCH (09:00)
[2018-08-04] MEDS ORDERED: FOLIC ACID IV SCH ×15 (09:00→10:00)
[2018-08-04] MEDS ORDERED: MULTIVITAMIN IV SCH ×15 (09:00→10:00)
[2018-08-04] MEDS: FUROSEMIDE 20 MG/2 ML VIAL IVP SCH ×2 (09:05→14:45)
[2018-08-04] MEDS: SODIUM CHLORIDE FLUSH 0.9% 10 ML SYRINGE IVP PRN ×2 (09:06→14:45)
[2018-08-04] MEDS: SODIUM CHLORIDE FLUSH 0.9% 10 ML SYRINGE IVP SCH ×2 (09:06→21:16)
[2018-08-04] MEDS: ASPIRIN CHEW 81 MG TABLET PO SCH (09:11)
[2018-08-04] MEDS: amLODIPine 5 MG TABLET PO SCH ×3 (09:11→21:17)
[2018-08-04] MEDS: POLYETHYLENE GLYCOL 3350 17 GM PACKET PO SCH (09:18)
[2018-08-04] MEDS: oxyCODONE 5 MG TABLET PO PRN (09:35)
[2018-08-04] MEDS: FAMOTIDINE 20 MG TABLET PO SCH (09:35)
[2018-08-04] MEDS: rifAXIMin 550 MG TABLET PO SCH ×2 (09:35→21:17)
[2018-08-04] MEDS: IPRATROPIUM/ALBUTEROL 3 ML NEB INH PRN (09:51)
[2018-08-04] MEDS ORDERED: METOPROLOL SUCCINATE 25 MG TABLET PO SCH (12:00)
--- NOTE | 2018-08-04 13:32 | Ultrasound Report ---
Reason: edema with hx dvt Procedure Date: 08/04/2018 Accession Number: [id number] / [id number] Procedure: US - Duplex Ext Veins Bilateral CPT Code: FULL RESULT: EXAM: BILATERAL LOWER EXTREMITY VENOUS ULTRASOUND EXAM DATE: 08/04/2018 01:16 PM. CLINICAL HISTORY: Edema with hx dvt. COMPARISON: None. TECHNIQUE: Real-time sonographic vascular imaging was performed by the grain picker through the lower extremities utilizing both color-flow and Doppler spectral analysis. Multiple service support representative static images were saved for review. FINDINGS: Right: Common Femoral Vein (CFV): Normal. CFV-GSV Junction: Normal. Profunda Femoral Vein (PFV): Normal. Femoral Vein (FV) Prox: Normal. Femoral Vein (FV) Mid: Normal. Femoral Vein (FV) Dist: Normal. Popliteal Vein: Normal. Posterior Tibial Veins: Not well seen. Peroneal Veins: Not well seen. Left: Common Femoral Vein (CFV): Normal. CFV-GSV Junction: Normal. Profunda Femoral Vein (PFV): Normal. Femoral Vein (FV) Prox: Normal. Femoral Vein (FV) Mid: Normal. Femoral Vein (FV) Dist: Normal. Popliteal Vein: Normal. Posterior Tibial Veins: Not well seen. Peroneal Veins: Not well seen. Other: Prominent superficial edema distally. IMPRESSION: 1. Superficial edema. 2. Negative for DVT at this time. RADIA
[2018-08-05] MEDS ORDERED: SODIUM CHLORIDE 0.9% 250 ML IV ONE ×2 (00:29→09:06)
[2018-08-05] MEDS ORDERED: KETOROLAC 30 MG/ML VIAL IVP PRN (00:30)
[2018-08-05] MEDS ORDERED: CYCLOBENZAPRINE 10 MG TABLET PO PRN (00:31)
[2018-08-05] MEDS ORDERED: LIDOCAINE PATCH 5% TOP PRN (00:31)
[2018-08-05] MEDS: SODIUM CHLORIDE FLUSH 0.9% 10 ML SYRINGE IVP SCH ×3 (00:52→17:43)
[2018-08-05] MEDS ORDERED: MIDODRINE 2.5 MG TABLET PO SCH (01:00)
[2018-08-05 04:34] LABS: BASOPHILS # (AUTO) 0.1 10^3/uL (0.0-0.1); BASOPHILS % (AUTO) 0.7 %; EOSINOPHILS # (AUTO) 0.1 10^3/uL (0.0-0.7); EOSINOPHILS % (AUTO) 0.5 %; LYMPHOCYTES # (AUTO) 1.2 10^3/uL (1.5-3.5); LYMPHOCYTES % (AUTO) 9.2 %; MEAN CORPUSCULAR HEMOGLOBIN 36.4 pg (27.0-31.0); MEAN CORPUSCULAR HGB CONC 33.7 g/dL (32.0-36.0); MEAN CORPUSCULAR VOLUME 107.9 fL (81.0-99.0); MEAN PLATELET VOLUME 11.4 fL (7.9-10.8); MONOCYTES # (AUTO) 1.3 10^3/uL (0.0-1.0); MONOCYTES % (AUTO) 10.6 %; NEUTROPHILS # (AUTO) 9.9 10^3/uL (1.5-6.6); NEUTROPHILS % (AUTO) 78.6 %; PLT - PLATELET COUNT 169 10^3/uL (130-450); RED BLOOD COUNT 3.02 10^6/uL (4.20-5.40); RED CELL DISTRIBUTION WIDTH 13.1 % (12.0-15.0); WHITE BLOOD COUNT 12.6 x10^3/uL (4.8-10.8)
[2018-08-05 04:51] LABS: ALBUMIN 1.6 g/dL (3.2-5.5); ALBUMIN/GLOBULIN RATIO 0.7 (1.0-2.2); ALKALINE PHOSPHATASE 259 IU/L (42-121); ALT ALANINE AMINOTRANSFERASE 33 IU/L (10-60); AST ASPARTATE AMINOTRANSFERASE 74 IU/L (10-42); BUN - BLOOD UREA NITROGEN < 5 mg/dL (6-20); CALCIUM 7.1 mg/dL (8.5-10.3); CARBON DIOXIDE - CO2 26 mmol/L (21-32); CHLORIDE 102 mmol/L (101-111); CREATININE 0.4 mg/dL (0.4-1.0); GFR - MDRD 158 (>89); GLUCOSE 99 mg/dL (70-100); MAGNESIUM 1.8 mg/dL (1.7-2.8); SODIUM 136 mmol/L (135-145); TOTAL PROTEIN 3.8 g/dL (6.7-8.2)
[2018-08-05] MEDS: MIDODRINE 2.5 MG TABLET PO PRN ×2 (06:28→15:48)
[2018-08-05] MEDS: ALBUTEROL NEB 2.5 MG/3 ML INH PRN (07:39)
[2018-08-05] MEDS ORDERED: POTASSIUM CHLORIDE 20 MEQ TABLET PO ONE (07:50)
[2018-08-05] MEDS ORDERED: POTASSIUM CHLOR 10 MEQ/100 ML 10 MEQ/100 ML BAG IV ONE ×2 (07:54→09:00)
[2018-08-05] MEDS ORDERED: IBUPROFEN 400 MG TABLET PO PRN (08:09)
--- NOTE | 2018-08-05 08:18 | XRAY Report ---
Reason: SOB, cough Procedure Date: 08/05/2018 Accession Number: [id number] / [id number] Procedure: XR - Chest 1 View X-Ray CPT Code: 34901 FULL RESULT: EXAM: CHEST RADIOGRAPHY EXAM DATE: 08/05/2018 07:50 AM. CLINICAL HISTORY: Shortness of breath, cough. COMPARISON: Chest radiograph from 08/04/2018. TECHNIQUE: 1 view. FINDINGS: Lungs/Pleura: There is new left basilar opacity. Lungs otherwise clear. No pleural effusion or pneumothorax. Mediastinum: Cardiomediastinal silhouette is within normal limits. Pulmonary vasculature is unremarkable. Other: Surgical clips overlie the left breast. IMPRESSION: New left basilar opacity, greater than typically seen with atelectasis and suspicious for aspiration or pneumonia. RADIA
[2018-08-05] MEDS: PRENATAL VITAMIN TABLET PO SCH (08:30)
[2018-08-05] MEDS: FAMOTIDINE 20 MG TABLET PO SCH (08:31)
[2018-08-05] MEDS: THIAMINE 100 MG TABLET PO SCH (08:31)
[2018-08-05] MEDS: ASPIRIN CHEW 81 MG TABLET PO SCH (08:31)
[2018-08-05] MEDS: oxyCODONE 5 MG TABLET PO PRN (08:31)
[2018-08-05] MEDS: POLYETHYLENE GLYCOL 3350 17 GM PACKET PO SCH (08:37)
[2018-08-05 08:47] LABS: ABSOLUTE RETICS # AUTO 0.135 10^6/uL (0.020-0.110); RED BLOOD COUNT 3.38 10^6/uL (4.20-5.40)
[2018-08-05] MEDS: HEPARIN 5,000 UNIT/ML VIAL SUBQ SCH ×2 (08:49→22:43)
[2018-08-05 09:24] LABS: FERRITIN 710.4 ng/mL (11.0-306.8)
[2018-08-05 09:27] LABS: IRON 72 ug/dL (28-170); TRANSFERRIN < 70 mg/dL (192-382)
[2018-08-05] MEDS ORDERED: CALCIUM GLUCONATE 1,000 MG in SODIUM CHLORIDE 0.9% 50 ML IV ONE (10:00)
[2018-08-05] MEDS: LACTULOSE 10 GM /15 ML UDC PO SCH ×3 (10:36→22:38)
[2018-08-05] MEDS: PIPERACILLIN/TAZOBACTAM 3.375 GM in SODIUM CHLORIDE 0.9% MINIBAG 100 ML IV SCH ×3 (10:36→22:38)
[2018-08-05] MEDS: LORazepam 2 MG/ML VIAL IVP PRN (12:20)
--- NOTE | 2018-08-05 18:22 | PROVIDER PROGRESS NOTE ---
Subjective - Prog Note Date Prog Note Date: 08/05/18 - Subjective Pt reports feeling: Worse Subjective: pt report cough, congestion. pt denies fever, chill. chest pain is on and off. pt's BP is still low. pt report she has poor appetite. Current Medications - Current Medications Current Medications: Active Medications Acetaminophen (Tylenol) 650 mg PO Q4HR PRN PRN Reason: Pain 1 to 4 Albuterol () 2.5 mg INH RTQ4H PRN PRN Reason: Wheezing Last Admin: 08/05/18 07:39 Dose: 2.5 mg Albuterol/Ipratropium (Duoneb) 3 ml INH Q4HR PRN PRN Reason: Wheezing Last Admin: 08/06/18 07:55 Dose: 3 ml Aspirin ([place] Aspirin) 81 mg PO DAILY [facility] Last Admin: 08/06/18 08:36 Dose: 81 mg Calcium Citrate () 250 mg PO DAILY [facility] Last Admin: 08/06/18 08:37 Dose: 250 mg Cyclobenzaprine HCl (Flexeril) 5 mg PO TID PRN PRN Reason: chest wall muscle pain Famotidine (Pepcid) 20 mg PO DAILY [facility] Last Admin: 08/06/18 08:37 Dose: 20 mg Heparin Sodium (Porcine) () 2,500 unit SUBQ BID [facility] Last Admin: 08/06/18 08:33 Dose: 2,500 unit Hydralazine HCl (Apresoline Inj) 10 mg IVP Q4HR PRN PRN Reason: SBP>160 Piperacillin Sod/Tazobactam (Sod 3.375 gm/ Sodium Chloride) 100 mls @ 200 mls/hr IV Q6H [facility] Last Infusion: 08/06/18 04:20 Dose: Infused Calcium Gluconate 1,000 mg/ (Sodium Chloride) 60 mls @ 60 mls/hr IV ONCE ONE Stop: 08/06/18 10:59 Last Infusion: 08/06/18 10:20 Dose: Infused Sodium Chloride (Normal Saline 0.9%) 250 mls @ 999 mls/hr IV ONCE ONE Stop: 08/06/18 10:50 Ibuprofen (Motrin) 400 mg PO Q6HR PRN PRN Reason: PAIN Lactulose (Enulose) 10 gm PO TID [facility] Last Admin: 08/06/18 05:56 Dose: 10 gm Lidocaine (Lidoderm Patch) 1 patch TOP DAILY PRN PRN Reason: PAIN Lorazepam (Ativan Inj (Vial)) 1 mg IVP Q30M PRN; Protocol PRN Reason: CIWA >8 Last Admin: 08/06/18 03:44 Dose: 1 mg Midodrine () 10 mg PO TID [facility] Last Admin: 08/06/18 05:57 Dose: 10 mg Nitroglycerin (Nitrostat) 0.4 mg SL Q5MIN PRN PRN Reason: Chest Pain Oxycodone HCl (Roxicodone) 5 mg PO Q4HR PRN PRN Reason: Pain 5 to 7 Last Admin: 08/06/18 08:36 Dose: 5 mg Polyethylene Glycol (Miralax) 17 gm PO DAILY [facility] Last Admin: 08/06/18 08:41 Dose: Not Given Multivit/Folic Acid/Iron (Trinatal Rx 1) 1 tab PO DAILYWM [facility] Last Admin: 08/06/18 08:36 Dose: 1 tab Sodium Chloride (Normal Saline Flush 0.9%) 10 ml IVP PRN PRN PRN Reason: NEEDED PER PROVIDER ORDERS Last Admin: 08/06/18 03:47 Dose: 10 ml Sodium Chloride (Normal Saline Flush 0.9%) 10 ml IVP 0100,0900,1700 [facility] Last Admin: 08/06/18 08:53 Dose: 10 ml Temazepam (Restoril) 15 mg PO QPM PRN PRN Reason: Insomnia Thiamine HCl (Vitamin B-1) 100 mg PO DAILY [facility] Last Admin: 08/06/18 08:37 Dose: 100 mg Telmisartan/Hydrochlorothiazid [Telmisartan-Hctz 80-25 mg Tab] 1 tab PO DAILY 04/02/18 Albuterol Sulfate [Albuterol Sulfate Hfa] 2 puffs IH Q4H PRN 04/03/18 Objective - Vital Signs/Intake & Output Reviewed Vital Signs: Yes Vital Signs: Vital Signs x48h Temp Pulse Resp BP Pulse Ox 08/05/18 17:00 36.4 C L 97 18 108/70 98 08/05/18 15:40 107 H 91/63 08/05/18 15:04 93 17 93/49 L 96 08/05/18 13:00 82 16 84/51 L 99 08/05/18 12:15 36.4 C L 88 16 93/58 L 95 Intake & Output: Intake & Output 08/02/18 08/03/18 08/04/18 08/05/18 23:59 23:59 23:59 23:59 Intake Total 2584.2 760 Output Total 1175 400 Balance 1409.2 360 - Objective General Appearance: positive: No acute distress, Alert. negative: Lethargic Eyes Bilateral: positive: Normal inspection, PERRL, No lid inflammation, Conjunctivae nml ENT: positive: ENT inspection nml, Pharynx nml, No signs of dehydration. negative: Purulent nasal drainage, Pharyngeal erythema, Oral lesions Neck: positive: Nml inspection, Thyroid nml, No JVD, Trachea midline. negative: Thyromegaly, Lymphadenopathy (R), Lymphadenopathy (L), Stiff neck, Swelling/bruising, Tracheal deviation Respiratory: positive: Chest non-tender, No respiratory distress. negative: Wheezes, Rales, Rhonchi Cardiovascular: positive: Regular rate & rhythm, No murmur, No gallop. negative: Irregularly irregular, Extrasystoles, Tachycardia, Bradycardia, JVD present, Systolic murmur, Diastolic murmur Peripheral Pulses: 2+ Radial (R), 2+ Radial (L), 2+ Dorsalis pedis (R), 2+ Narciso salis pedis (L) Abdomen: positive: Non-tender, No organomegaly, Nml bowel sounds, No distention. negative: Tenderness, Guarding, Rebound Back: positive: Nml inspection. negative: CVA tenderness (R), CVA tenderness (L) Skin: positive: Color nml, No rash, Warm, Dry. negative: Cyanosis, Diaphoresis, Pallor Extremities: positive: Non-tender, Full ROM, Nml appearance. negative: Calf tenderness, Joint swelling, Eleanor's sign/cords Neurologic/Psychiatric: positive: Oriented x3, Mood/affect nml. negative: Weakness, Sensory loss, Facial droop - Lab Results Fish Bones: 08/06/18 04:35 08/06/18 04:35 Other Labs: Lab Results x24hrs 08/05/18 08/05/18 08/05/18 Range/Units 08:34 08:34 08:34 WBC (4.8-10.8) x10^3/uL RBC (4.20-5.40) 10^6/uL Hgb (12.0-16.0) g/dL Hct (37.0-47.0) % MCV (81.0-99.0) fL MCH (27.0-31.0) pg MCHC (32.0-36.0) g/dL RDW (12.0-15.0) % Plt Count (130-450) 10^3/uL MPV (7.9-10.8) fL Reticulocyte % (Auto) (0.5-2.3) % Neut # (Auto) (1.5-6.6) 10^3/uL Lymph # (Auto) (1.5-3.5) 10^3/uL Schleicher # (Auto) (0.0-1.0) 10^3/uL Eos # (Auto) (0.0-0.7) 10^3/uL Baso # (Auto) (0.0-0.1) 10^3/uL Absolute Nucleated RBC x10^3/uL Nucleated RBC % /100WBC Absolute Retic (0.020-0.110) 10^6/uL Sodium (135-145) mmol/L Potassium (3.5-5.0) mmol/L Chloride (101-111) mmol/L Carbon Dioxide (21-32) mmol/L Anion Gap (6-13) BUN (6-20) mg/dL Creatinine (0.4-1.0) mg/dL Estimated GFR (MDRD) (>89) Glucose (70-100) mg/dL Calcium (8.5-10.3) mg/dL Phosphorus (2.5-4.6) mg/dL Magnesium (1.7-2.8) mg/dL Iron 72 (28-170) ug/dL % Saturation [employer] RESET Transferrin < 70 L (192-382) mg/dL Ferritin 710.4 H (11.0-306.8) ng/mL Total Bilirubin (0.2-1.0) mg/dL AST (10-42) IU/L ALT (10-60) IU/L Alkaline Phosphatase (42-121) IU/L Ammonia (7-35) umol/L Lactate Dehydrogenase 291 H (91-225) IU/L Troponin I (<0.49) ng/mL Total Protein (6.7-8.2) g/dL Albumin (3.2-5.5) g/dL Globulin (2.1-4.2) g/dL Albumin/Globulin Ratio (1.0-2.2) Vitamin B12 2338 H (180-914) pg/mL 08/05/18 08/05/18 08/05/18 Range/Units 08:34 08:07 04:15 WBC (4.8-10.8) x10^3/uL RBC 3.38 L (4.20-5.40) 10^6/uL Hgb (12.0-16.0) g/dL Hct (37.0-47.0) % MCV (81.0-99.0) fL MCH (27.0-31.0) pg MCHC (32.0-36.0) g/dL RDW (12.0-15.0) % Plt Count (130-450) 10^3/uL MPV (7.9-10.8) fL Reticulocyte % (Auto) 3.98 H (0.5-2.3) % Neut # (Auto) (1.5-6.6) 10^3/uL Lymph # (Auto) (1.5-3.5) 10^3/uL Schleicher # (Auto) (0.0-1.0) 10^3/uL Eos # (Auto) (0.0-0.7) 10^3/uL Baso # (Auto) (0.0-0.1) 10^3/uL Absolute Nucleated RBC x10^3/uL Nucleated RBC % /100WBC Absolute Retic 0.135 H (0.020-0.110) 10^6/uL Sodium (135-145) mmol/L Potassium (3.5-5.0) mmol/L Chloride (101-111) mmol/L Carbon Dioxide (21-32) mmol/L Anion Gap (6-13) BUN (6-20) mg/dL Creatinine (0.4-1.0) mg/dL Estimated GFR (MDRD) (>89) Glucose (70-100) mg/dL Calcium (8.5-10.3) mg/dL Phosphorus 3.1 (2.5-4.6) mg/dL Magnesium (1.7-2.8) mg/dL Iron (28-170) ug/dL % Saturation Transferrin (192-382) mg/dL Ferritin (11.0-306.8) ng/mL Total Bilirubin (0.2-1.0) mg/dL AST (10-42) IU/L ALT (10-60) IU/L Alkaline Phosphatase (42-121) IU/L Ammonia 70.6 H (7-35) umol/L Lactate Dehydrogenase (91-225) IU/L Troponin I (<0.49) ng/mL Total Protein (6.7-8.2) g/dL Albumin (3.2-5.5) g/dL Globulin (2.1-4.2) g/dL Albumin/Globulin Ratio (1.0-2.2) Vitamin B12 (180-914) pg/mL 08/05/18 08/05/18 08/04/18 Range/Units 04:15 04:15 18:35 WBC 12.6 H (4.8-10.8) x10^3/uL RBC 3.02 L (4.20-5.40) 10^6/uL Hgb 11.0 L (12.0-16.0) g/dL Hct 32.6 L (37.0-47.0) % MCV 107.9 H (81.0-99.0) fL MCH 36.4 H (27.0-31.0) pg MCHC 33.7 (32.0-36.0) g/dL RDW 13.1 (12.0-15.0) % Plt Count 169 (130-450) 10^3/uL MPV 11.4 H (7.9-10.8) fL Reticulocyte % (Auto) (0.5-2.3) % Neut # (Auto) 9.9 H (1.5-6.6) 10^3/uL Lymph # (Auto) 1.2 L (1.5-3.5) 10^3/uL Schleicher # (Auto) 1.3 H (0.0-1.0) 10^3/uL Eos # (Auto) 0.1 (0.0-0.7) 10^3/uL Baso # (Auto) 0.1 (0.0-0.1) 10^3/uL Absolute Nucleated RBC 0.02 x10^3/uL Nucleated RBC % 0.2 /100WBC Absolute Retic (0.020-0.110) 10^6/uL Sodium 136 (135-145) mmol/L Potassium 2.7 L (3.5-5.0) mmol/L Chloride 102 (101-111) mmol/L Carbon Dioxide 26 (21-32) mmol/L Anion Gap 8.0 (6-13) BUN < 5 L (6-20) mg/dL Creatinine 0.4 (0.4-1.0) mg/dL Estimated GFR (MDRD) 158 (>89) Glucose 99 (70-100) mg/dL Calcium 7.1 L (8.5-10.3) mg/dL Phosphorus (2.5-4.6) mg/dL Magnesium 1.8 (1.7-2.8) mg/dL Iron (28-170) ug/dL % Saturation Transferrin (192-382) mg/dL Ferritin (11.0-306.8) ng/mL Total Bilirubin 2.0 H (0.2-1.0) mg/dL AST 74 H (10-42) IU/L ALT 33 (10-60) IU/L Alkaline Phosphatase 259 H (42-121) IU/L Ammonia (7-35) umol/L Lactate Dehydrogenase (91-225) IU/L Troponin I < 0.04 (<0.49) ng/mL Total Protein 3.8 L (6.7-8.2) g/dL Albumin 1.6 L (3.2-5.5) g/dL Globulin 2.2 (2.1-4.2) g/dL Albumin/Globulin Ratio 0.7 L (1.0-2.2) Vitamin B12 (180-914) pg/mL ABX Reporting Has patient been on IV antibiotics over the past 48 hours?: Yes Sepsis Event Note (H) - Evaluation Current Stage of Sepsis: Ruled out Possible source of Sepsis: positive: GI tract/intra-abdominal - Sepsis Criteria Sepsis Criteria: Recorded Heart Rate greater than 90 bpm, WBC count greater than 12,000 or less than 4000 Assessment/Plan - Problem List (1) Chest pain Impression: 1. Angina atype chest pain serial troponin were negative. EKG was ST. pt report CP is on and off, like atypical chest pain ECHO reveals unremarkable. continue nitro PRN, ASA 2. alcoholism skilled nursing alcohol abuse with liver failure d/c banana bag for precaution of fluid overload for her ascites, instead given pt vitamin and B1 continue CIWA. pt was still positive for alcohol at the admission 3. Hyponatremia, hypervolemia resolved 4. hypotension pt had elevated BP with ST, add metoprolol. but now pt present hypotension stop all BP meds, continue vital monitor Q4H bolus of NS and precaution of fluid overload midodrine tid 5. 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 pt do not need agent paracentesis now 6. ETOH induced hepatitis -monitor LFT's, needs to stop drinking. Supportive care and med mgmt 7. Chronic BLLE edema sec to liver disease -Etoh hepatitis, will hold lasix plus aldactonnw now for 8. hypoalbuminemia -likely from etoh related hepatic failure and malnutrional def with decrease oncotic pressure contributing to anasarca and generalized edema. pt may need IV of albumin 9. Macrocytosis -H/H stable and no mention of UGIB/LGIB. stable b12/FA levels. 10. FTT wit anorexia and weight loss -BMI 19.2, etoh related nutrional deficiencies likely, will need nutritional consult here, treat underlying SBP to improve pain and increase PO intake. 11. current tobacco abuse disorder -offer nicotine replacement tx 12. pneumonia pt present cough, congestion, elevated WBC, but without fever, chill order CXR, which reveals possible aspiration and left side pneumonia treat with Zosyn Qualifiers: Chest pain type: unspecified Qualified Code(s): R07.9 - Chest pain, unspecified
[2018-08-05] MEDS: IPRATROPIUM/ALBUTEROL 3 ML NEB INH PRN (22:20)
[2018-08-05] MEDS: MIDODRINE 2.5 MG TABLET PO SCH (22:39)
[2018-08-06] MEDS: IPRATROPIUM/ALBUTEROL 3 ML NEB INH PRN ×2 (02:41→07:55)
[2018-08-06] MEDS: SODIUM CHLORIDE FLUSH 0.9% 10 ML SYRINGE IVP SCH ×3 (02:56→20:27)
[2018-08-06] MEDS: LORazepam 2 MG/ML VIAL IVP PRN (03:44)
[2018-08-06] MEDS: SODIUM CHLORIDE FLUSH 0.9% 10 ML SYRINGE IVP PRN (03:47)
[2018-08-06] MEDS: PIPERACILLIN/TAZOBACTAM 3.375 GM in SODIUM CHLORIDE 0.9% MINIBAG 100 ML IV SCH ×3 (03:47→16:49)
[2018-08-06 04:50] LABS: BASOPHILS # (AUTO) 0.1 10^3/uL (0.0-0.1); BASOPHILS % (AUTO) 0.8 %; EOSINOPHILS % (AUTO) 0.2 %; HGB - HEMOGLOBIN 11.8 g/dL (12.0-16.0); LYMPHOCYTES % (AUTO) 7.4 %; MEAN CORPUSCULAR HGB CONC 34.8 g/dL (32.0-36.0); MEAN CORPUSCULAR VOLUME 106.3 fL (81.0-99.0); MEAN PLATELET VOLUME 11.2 fL (7.9-10.8); MONOCYTES # (AUTO) 1.3 10^3/uL (0.0-1.0); MONOCYTES % (AUTO) 10.1 %; NEUTROPHILS # (AUTO) 10.6 10^3/uL (1.5-6.6); NEUTROPHILS % (AUTO) 80.9 %; PLT - PLATELET COUNT 205 10^3/uL (130-450); RED BLOOD COUNT 3.19 10^6/uL (4.20-5.40); RED CELL DISTRIBUTION WIDTH 13.2 % (12.0-15.0); WHITE BLOOD COUNT 13.2 x10^3/uL (4.8-10.8)
[2018-08-06 05:01] LABS: ALBUMIN 1.5 g/dL (3.2-5.5); ALBUMIN/GLOBULIN RATIO 0.7 (1.0-2.2); BILIRUBIN,TOTAL 2.2 mg/dL (0.2-1.0); CALCIUM 7.3 mg/dL (8.5-10.3); CREATININE 0.4 mg/dL (0.4-1.0); TOTAL PROTEIN 3.7 g/dL (6.7-8.2)
[2018-08-06] MEDS: LACTULOSE 10 GM /15 ML UDC PO SCH ×3 (05:56→22:28)
[2018-08-06] MEDS: MIDODRINE 2.5 MG TABLET PO SCH ×3 (05:57→22:26)
[2018-08-06] MEDS ORDERED: POTASSIUM CHLORIDE 20 MEQ TABLET PO ONE ×2 (06:13→08:06)
[2018-08-06] MEDS ORDERED: SODIUM CHLORIDE 0.9% 250 ML IV ONE ×2 (08:10→10:35)
[2018-08-06] MEDS: HEPARIN 5,000 UNIT/ML VIAL SUBQ SCH ×2 (08:33→21:22)
[2018-08-06] MEDS: PRENATAL VITAMIN TABLET PO SCH (08:36)
[2018-08-06] MEDS: oxyCODONE 5 MG TABLET PO PRN ×2 (08:36→21:01)
[2018-08-06] MEDS: ASPIRIN CHEW 81 MG TABLET PO SCH (08:36)
[2018-08-06] MEDS: THIAMINE 100 MG TABLET PO SCH (08:37)
[2018-08-06] MEDS: FAMOTIDINE 20 MG TABLET PO SCH (08:37)
[2018-08-06] MEDS: CALCIUM CITRATE 250 MG TABLET PO SCH (08:37)
[2018-08-06] MEDS: POLYETHYLENE GLYCOL 3350 17 GM PACKET PO SCH (08:41)
[2018-08-06] MEDS ORDERED: CALCIUM GLUCONATE 1,000 MG in SODIUM CHLORIDE 0.9% 50 ML IV ONE (10:00)
[2018-08-06] MEDS ORDERED: ALBUMIN 25% 12.5 GM/50 ML VIAL IV STA (11:22)
[2018-08-06] MEDS ORDERED: MEGESTROL 400 MG/10 ML UDC PO SCH (13:14)
--- NOTE | 2018-08-06 16:06 | PROVIDER PROGRESS NOTE ---
Subjective - Prog Note Date Prog Note Date: 08/06/18 - Subjective Pt reports feeling: Worse Subjective: pt report his cough, pulmonary congestion is better, no fever or chill. she also denies chest pain. but pt is still profound weakness, no appetite, and his BP is still lower. Current Medications - Current Medications Current Medications: Active Medications Acetaminophen (Tylenol) 650 mg PO Q4HR PRN PRN Reason: Pain 1 to 4 Albuterol () 2.5 mg INH RTQ4H PRN PRN Reason: Wheezing Last Admin: 08/05/18 07:39 Dose: 2.5 mg Albuterol/Ipratropium (Duoneb) 3 ml INH Q4HR PRN PRN Reason: Wheezing Last Admin: 08/06/18 07:55 Dose: 3 ml Aspirin ([place] Aspirin) 81 mg PO DAILY [facility] Last Admin: 08/06/18 08:36 Dose: 81 mg Calcium Citrate () 250 mg PO DAILY [facility] Last Admin: 08/06/18 08:37 Dose: 250 mg Cyclobenzaprine HCl (Flexeril) 5 mg PO TID PRN PRN Reason: chest wall muscle pain Famotidine (Pepcid) 20 mg PO DAILY [facility] Last Admin: 08/06/18 08:37 Dose: 20 mg Heparin Sodium (Porcine) () 2,500 unit SUBQ BID [facility] Last Admin: 08/06/18 08:33 Dose: 2,500 unit Hydralazine HCl (Apresoline Inj) 10 mg IVP Q4HR PRN PRN Reason: SBP>160 Piperacillin Sod/Tazobactam (Sod 3.375 gm/ Sodium Chloride) 100 mls @ 200 mls/hr IV Q6H [facility] Last Infusion: 08/06/18 11:36 Dose: Infused Ibuprofen (Motrin) 400 mg PO Q6HR PRN PRN Reason: PAIN Lactulose (Enulose) 10 gm PO TID [facility] Last Admin: 08/06/18 13:47 Dose: 10 gm Lidocaine (Lidoderm Patch) 1 patch TOP DAILY PRN PRN Reason: PAIN Lorazepam (Ativan Inj (Vial)) 1 mg IVP Q30M PRN; Protocol PRN Reason: CIWA >8 Last Admin: 08/06/18 03:44 Dose: 1 mg Megestrol Acetate (Megace) 400 mg PO DAILY [facility] Last Admin: 08/06/18 13:47 Dose: 400 mg Midodrine () 10 mg PO TID [facility] Last Admin: 08/06/18 13:47 Dose: 10 mg Nitroglycerin (Nitrostat) 0.4 mg SL Q5MIN PRN PRN Reason: Chest Pain Oxycodone HCl (Roxicodone) 5 mg PO Q4HR PRN PRN Reason: Pain 5 to 7 Last Admin: 08/06/18 08:36 Dose: 5 mg Polyethylene Glycol (Miralax) 17 gm PO DAILY [facility] Last Admin: 08/06/18 08:41 Dose: Not Given Multivit/Folic Acid/Iron (Trinatal Rx 1) 1 tab PO DAILYWM [facility] Last Admin: 08/06/18 08:36 Dose: 1 tab Sodium Chloride (Normal Saline Flush 0.9%) 10 ml IVP PRN PRN PRN Reason: NEEDED PER PROVIDER ORDERS Last Admin: 08/06/18 03:47 Dose: 10 ml Sodium Chloride (Normal Saline Flush 0.9%) 10 ml IVP 0100,0900,1700 [facility] Last Admin: 08/06/18 08:53 Dose: 10 ml Temazepam (Restoril) 15 mg PO QPM PRN PRN Reason: Insomnia Thiamine HCl (Vitamin B-1) 100 mg PO DAILY [facility] Last Admin: 08/06/18 08:37 Dose: 100 mg Telmisartan/Hydrochlorothiazid [Telmisartan-Hctz 80-25 mg Tab] 1 tab PO DAILY 04/02/18 Albuterol Sulfate [Albuterol Sulfate Hfa] 2 puffs IH Q4H PRN 04/03/18 Objective - Vital Signs/Intake & Output Reviewed Vital Signs: Yes Vital Signs: Vital Signs x48h Temp Pulse Resp BP BP BP Pulse Ox 08/06/18 15:42 36.5 C 91 16 104/48 L 96 08/06/18 14:51 102/55 L 08/06/18 11:29 36.5 C 93 18 89/48 L 90 L Intake & Output: Intake & Output 08/03/18 08/04/18 08/05/18 08/06/18 23:59 23:59 23:59 23:59 Intake Total 2584.2 1470 1440 Output Total 1175 400 300 Balance 1409.2 1070 1140 - Objective General Appearance: positive: No acute distress, Alert. negative: Lethargic Eyes Bilateral: positive: Normal inspection, PERRL, No lid inflammation, Conjunctivae nml ENT: positive: ENT inspection nml, Pharynx nml, No signs of dehydration. negative: Purulent nasal drainage, Pharyngeal erythema, Oral lesions Neck: positive: Nml inspection, Thyroid nml, No JVD, Trachea midline. negative: Thyromegaly, Lymphadenopathy (R), Lymphadenopathy (L), Stiff neck, Swelling/bruising, Tracheal deviation Respiratory: positive: Chest non-tender, No respiratory distress. negative: Wheezes, Rales, Rhonchi Cardiovascular: positive: Regular rate & rhythm, No murmur, No gallop. negative: Irregularly irregular, Extrasystoles, Tachycardia, Bradycardia, JVD present, Systolic murmur, Diastolic murmur Peripheral Pulses: 2+ Radial (R), 2+ Radial (L), 2+ Dorsalis pedis (R), 2+ Dorsalis pedis (L) Abdomen: positive: Non-tender, No organomegaly, Nml bowel sounds, No distention. negative: Tenderness, Guarding, Rebound Back: positive: Nml inspection. negative: CVA tenderness (R), CVA tenderness (L) Skin: positive: Color nml, No rash, Warm, Dry. negative: Cyanosis, Diaphoresis, Pallor Extremities: positive: Non-tender, Nml appearance. negative: Calf tenderness, Joint swelling, Eleanor's sign/cords Neurologic/Psychiatric: positive: Oriented x3, Sensation nml, Weakness. negative: Sensory loss, Facial droop, Slurred/abnml speech, Depressed mood/affect - Lab Results Fish Bones: 08/06/18 04:35 08/06/18 04:35 Other Labs: Lab Results x24hrs 08/06/18 08/06/18 08/06/18 Range/Units 06:40 04:35 04:35 WBC 13.2 H (4.8-10.8) x10^3/uL RBC 3.19 L (4.20-5.40) 10^6/uL Hgb 11.8 L (12.0-16.0) g/dL Hct 33.9 L (37.0-47.0) % MCV 106.3 H (81.0-99.0) fL MCH 37.0 H (27.0-31.0) pg MCHC 34.8 (32.0-36.0) g/dL RDW 13.2 (12.0-15.0) % Plt Count 205 (130-450) 10^3/uL MPV 11.2 H (7.9-10.8) fL Neut # (Auto) 10.6 H (1.5-6.6) 10^3/uL Lymph # (Auto) 1.0 L (1.5-3.5) 10^3/uL Bradley # (Auto) 1.3 H (0.0-1.0) 10^3/uL Eos # (Auto) 0.0 (0.0-0.7) 10^3/uL Baso # (Auto) 0.1 (0.0-0.1) 10^3/uL Absolute Nucleated RBC 0.02 x10^3/uL Nucleated RBC % 0.2 /100WBC Sodium 138 (135-145) mmol/L Potassium 3.3 L (3.5-5.0) mmol/L Chloride 103 (101-111) mmol/L Carbon Dioxide 25 (21-32) mmol/L Anion Gap 10.0 (6-13) BUN 5 L (6-20) mg/dL Creatinine 0.4 (0.4-1.0) mg/dL Estimated GFR (MDRD) 158 (>89) Glucose 98 (70-100) mg/dL Calcium 7.3 L (8.5-10.3) mg/dL Total Bilirubin 2.2 H (0.2-1.0) mg/dL AST 83 H (10-42) IU/L ALT 33 (10-60) IU/L Alkaline Phosphatase 258 H (42-121) IU/L Ammonia 41.9 H (7-35) umol/L Total Protein 3.7 L (6.7-8.2) g/dL Albumin 1.5 L (3.2-5.5) g/dL Globulin 2.2 (2.1-4.2) g/dL Albumin/Globulin Ratio 0.7 L (1.0-2.2) ABX Reporting Has patient been on IV antibiotics over the past 48 hours?: Yes Sepsis Event Note (H) - Evaluation Current Stage of Sepsis: Ruled out Possible source of Sepsis: positive: Pulmonary - Sepsis Criteria Sepsis Criteria: Recorded Heart Rate greater than 90 bpm Assessment/Plan - Problem List (1) Chest pain Impression: 08/06 pt denies chest pain today serial troponin were negative. EKG was ST. pt report CP is on and off, like aty pical chest pain ECHO reveals unremarkable. continue nitro PRN, ASA 2. alcoholism 08/06 pt report she still drink alcohol just before admission continue folic acid and B1 continue neuro check fpc alcohol abuse with liver failure d/c banana bag for precaution of fluid overload for her ascites, instead given pt vitamin and B1 continue CIWA. pt was still positive for alcohol at the admission 3. Hyponatremia, hypervolemia resolved 4. hypotension 08/06 bolus of 250 ml of NS schedule Midodrinine tele and vital monitor encourage pt eat pt had elevated BP with ST, add metoprolol. but now pt present hypotension stop all BP meds, continue vital monitor Q4H bolus of NS and precaution of fluid overload midodrine tid 5. 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 pt do not need agency paracentesis now 6. ETOH induced hepatitis monitor lab, advise pt stop drinking. continue Supportive care 7. Chronic BLLE edema sec to liver disease 08/06 Etoh hepatitis, will hold lasix now for hypotension 8. hypoalbuminemia likely from etoh related hepatic failure and malnutrional with decrease oncotic pressure contributing to anasarca and generalized edema. pt may need IV of albumin 9. Macrocytosis H/H stable and no mention of UGIB/LGIB. stable b12/FA levels. 10. FTT wit anorexia and weight loss 08/06 BMI 19.2, etoh related nutrional deficiencies likely, will need nutritional consult here, treat underlying SBP to improve pain and increase PO intake. encourage pt eat add megace 11. current tobacco abuse disorder PRN for nicotine replacement 12. pneumonia 08/06 pt's cough, pulmonary congestion is significant reduced. 96% sats on room air, significantly improved continue Zosyn continue RT treatment as needed pt present cough, congestion, elevated WBC, but without fever, chill order CXR, which reveals possible aspiration and left side pneumonia treat with Zosyn 13. advanced care plan discussed with pt about her code status, palliative care and hospice care. pt agree to have palliative care consult on tomorrow. Qualifiers: Chest pain type: unspecified Qualified Code(s): R07.9 - Chest pain, unspecified
[2018-08-06] MEDS: ALBUMIN 25% 12.5 GM/50 ML VIAL IV SCH ×4 (20:21→23:22)
[2018-08-06] MEDS: SPIRONOLACTONE 25 MG TABLET PO SCH (21:01)
[2018-08-06] MEDS: rifAXIMin 550 MG TABLET PO SCH (21:01)
[2018-08-07] MEDS: PIPERACILLIN/TAZOBACTAM 3.375 GM in SODIUM CHLORIDE 0.9% MINIBAG 100 ML IV SCH ×4 (00:41→19:54)
[2018-08-07] MEDS: IPRATROPIUM/ALBUTEROL 3 ML NEB INH PRN ×2 (03:21→18:09)
[2018-08-07 05:39] LABS: BASOPHILS # (AUTO) 0.1 10^3/uL (0.0-0.1); EOSINOPHILS % (AUTO) 0.3 %; HGB - HEMOGLOBIN 11.1 g/dL (12.0-16.0); LYMPHOCYTES # (AUTO) 1.3 10^3/uL (1.5-3.5); LYMPHOCYTES % (AUTO) 11.5 %; MEAN CORPUSCULAR HEMOGLOBIN 37.9 pg (27.0-31.0); MEAN CORPUSCULAR HGB CONC 34.7 g/dL (32.0-36.0); MEAN CORPUSCULAR VOLUME 109.2 fL (81.0-99.0); MEAN PLATELET VOLUME 11.3 fL (7.9-10.8); MONOCYTES # (AUTO) 1.4 10^3/uL (0.0-1.0); MONOCYTES % (AUTO) 11.8 %; NEUTROPHILS # (AUTO) 8.7 10^3/uL (1.5-6.6); NEUTROPHILS % (AUTO) 74.8 %; PLT - PLATELET COUNT 182 10^3/uL (130-450); RED BLOOD COUNT 2.93 10^6/uL (4.20-5.40); RED CELL DISTRIBUTION WIDTH 13.4 % (12.0-15.0); WHITE BLOOD COUNT 11.7 x10^3/uL (4.8-10.8)
[2018-08-07 05:53] LABS: ALBUMIN 2.8 g/dL (3.2-5.5); ALBUMIN/GLOBULIN RATIO 1.6 (1.0-2.2); BILIRUBIN,TOTAL 2.5 mg/dL (0.2-1.0); CREATININE 0.4 mg/dL (0.4-1.0); TOTAL PROTEIN 4.5 g/dL (6.7-8.2)
[2018-08-07] MEDS: SODIUM CHLORIDE FLUSH 0.9% 10 ML SYRINGE IVP SCH ×3 (06:50→16:39)
[2018-08-07] MEDS: LACTULOSE 10 GM /15 ML UDC PO SCH ×3 (07:18→22:40)
[2018-08-07] MEDS: MIDODRINE 2.5 MG TABLET PO SCH ×2 (07:18→22:40)
[2018-08-07] MEDS ORDERED: POTASSIUM CHLORIDE 20 MEQ TABLET PO ONE (07:20)
[2018-08-07] MEDS ORDERED: POTASSIUM CHLOR 10 MEQ/100 ML 10 MEQ/100 ML BAG IV ONE (07:21)
--- NOTE | 2018-08-07 07:52 | XRAY Report ---
Reason: SOB Procedure Date: 08/07/2018 Accession Number: [id number] / [id number] Procedure: XR - Chest 1 View X-Ray CPT Code: 71761 FULL RESULT: EXAM: CHEST RADIOGRAPHY EXAM DATE: 08/07/2018 07:37 AM. CLINICAL HISTORY: Shortness of breath. COMPARISON: CHEST 1 VIEW 08/05/2018 7:37 AM. TECHNIQUE: 1 view. FINDINGS: Lungs/Pleura: Worsening left basilar opacity, associated with blunting of the left costophrenic recess. New right basilar opacity has developed in the interval. Mediastinum: Within exam limitations, the cardiomediastinal contour is normal. Other: Stable position of surgical clips projecting over the left breast. Decreased bone mineralization with degenerative changes in the spine and shoulders. IMPRESSION: 1. Worsening left basilar opacity with interval development of a new right basilar opacity. 2. Small bilateral pleural effusions. 3. The remainder is stable. RADIA
[2018-08-07] MEDS ORDERED: FUROSEMIDE 20 MG TABLET PO SCH (08:00)
[2018-08-07] MEDS: rifAXIMin 550 MG TABLET PO SCH (08:25)
[2018-08-07] MEDS: ASPIRIN CHEW 81 MG TABLET PO SCH (08:25)
[2018-08-07] MEDS: SPIRONOLACTONE 25 MG TABLET PO SCH ×2 (08:25→21:20)
[2018-08-07] MEDS: PRENATAL VITAMIN TABLET PO SCH (08:26)
[2018-08-07] MEDS: FAMOTIDINE 20 MG TABLET PO SCH (08:26)
[2018-08-07] MEDS: CALCIUM CITRATE 250 MG TABLET PO SCH (08:26)
[2018-08-07] MEDS: THIAMINE 100 MG TABLET PO SCH (08:26)
[2018-08-07] MEDS: POLYETHYLENE GLYCOL 3350 17 GM PACKET PO SCH (08:28)
[2018-08-07] MEDS: HEPARIN 5,000 UNIT/ML VIAL SUBQ SCH ×2 (08:28→19:46)
[2018-08-07] MEDS: MEGESTROL 400 MG/10 ML UDC PO SCH (08:33)
[2018-08-07] MEDS ORDERED: VANCOMYCIN INJ 1 GM, VANCOMYCIN INJ 250 MG in SODIUM CHLORIDE 0.9% 250 ML IV ONE (09:00)
--- NOTE | 2018-08-07 11:14 | CONSULTATION NOTE ---
Palliative Care Consultation - Referral Referring Provider: Sebastian POLANCO Time of Visit: 2143-8030; 1130-12 Referral setting: Hospitalized patient Referral Reason: Failure to Thrive/acute hepatitis/pneumonia - Information Sources Records reviewed: RN notes reviewed, Previous records reviewed History/Review of Systems obtained from: Patient, Family ( Dereck at bedside) Exam limitations: Clinical condition - History of Present Illness Brief History of Present Illness: This is a 68-year-old woman who presents with symptoms of failure to thrive, functional decline, cognitive decline, and recent weight loss over the last 6 months of near 20 pounds. She has had severe anorexia, was getting a work-up on outpatient basis, through [facility] had recently had an EGD, per 's sharing, it sounds like the only finding was gastritis, but they did do multiple biopsies. She also had a colonoscopy again this is per with polyp removal. Did recommend to hospitalist we get outpatient records to correlate findings. Patient unable to participate in exam, she is quite somnolent and lethargic, is able to answer few questions, but unable to present with any kind of decision-making capacity or engage in the conversation. She does understand she is in the hospital, that she is quite ill, but is disoriented as far as time and drifts off to sleep easily. Most of the history and conversation has occurred with the . Also supplemented by medical records. Patient presents acutely with pneumonia, she has underlying COPD and chronic tobacco abuse, she is currently going to alcohol withdrawal CIWA protocol, and receiving fluids and balance with her ascites/anasarca. 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 In discussion with regarding concern regarding hepatitis, and alcohol abuse. He reports it has been more severe over the last couple years, she had chronic abuse, but exacerbated with the loss of her job at [employer] about 2 years ago. He reports his best guess is she drinks 4 to 5 glasses of walking a night, eats very little, has had functional decline him as far as being a "furniture walker" in the home. She has been able to manage her own ADLs, and he is been doing most of the cooking, reports her functional status is most prominently diminished after her foot drop which is documented in March of this year. They do get their care out [facility], and she had seen Ravi Reyes previously, currently seeing Elsi KILLIANC, reports there has been an ongoing work-up, but it has been slow in coming with the referrals, was to get results of tests 08/13. Medical/Surgical History - Past Medical History Cardiovascular: reports: Congestive heart failure, Hypertension, High cholesterol, Deep vein thrombosis, [place] Respiratory: reports: COPD, Emphysema Neuro: Other Endocrine/Autoimmune: reports: None GI: reports: Other (irritable bowel syndrome) FISCAL MANAGER: reports: Breast cancer : reports: None HEENT: reports: None Psych: reports: Depression, Anxiety Musculoskeletal: reports: Osteoarthritis, Osteoporosis, Chronic back pain Derm: reports: None MRSA Hx?: No - Past Surgical History General: reports: Colonoscopy, EGD, Other /FISCAL MANAGER: reports: Other (lumpectomy) - Substance History Use: Uses substance without health or social issues: Tobacco Abuse: Recurrent use of substance despite neg consequences: Alcohol Social History - Living Situation Living arrangement: At home Living Situation: With spouse/s.o., With family Support System: Patient and have been over 37 years, they are coming up on the 38-year anniversary. They do have 3 children, all in [place]. The daughter Ronit lives with them. Patient has not needed personal care up to this point, though he does feel like they could meet her care needs at home. They have lived on [facility] for 30 years, he is retired, they are currently renovating their house, so he is not keen on having home health services. She has been bedbound since she has come into the hospital. She has been a 2 person transfer to the commode, and is been alert enough to call for assistance today. Medications/Allergies - Medications Active Medication List: Active Medications Acetaminophen (Tylenol) 650 mg PO Q4HR PRN PRN Reason: Pain 1 to 4 Albuterol () 2.5 mg INH RTQ4H PRN PRN Reason: Wheezing Last Admin: 08/05/18 07:39 Dose: 2.5 mg Albuterol/Ipratropium (Duoneb) 3 ml INH Q4HR PRN PRN Reason: Wheezing Last Admin: 08/07/18 03:21 Dose: 3 ml Aspirin ([place] Aspirin) 81 mg PO DAILY [facility] Last Admin: 08/07/18 08:25 Dose: 81 mg Calcium Citrate () 250 mg PO DAILY [facility] Last Admin: 08/07/18 08:26 Dose: 250 mg Cyclobenzaprine HCl (Flexeril) 5 mg PO TID PRN PRN Reason: chest wall muscle pain Last Admin: 08/07/18 07:28 Dose: 5 mg Famotidine (Pepcid) 20 mg PO DAILY [facility] Last Admin: 08/07/18 08:26 Dose: 20 mg Heparin Sodium (Porcine) () 2,500 unit SUBQ BID [facility] Last Admin: 08/07/18 08:28 Dose: 2,500 unit Hydralazine HCl (Apresoline Inj) 10 mg IVP Q4HR PRN PRN Reason: SBP>160 Piperacillin Sod/Tazobactam (Sod 3.375 gm/ Sodium Chloride) 100 mls @ 200 mls/hr IV Q6H [facility] Vancomycin HCl 1 gm/ Sodium (Chloride) 250 mls @ 167 mls/hr IV BID [facility] Ibuprofen (Motrin) 400 mg PO Q6HR PRN PRN Reason: PAIN Lactulose (Enulose) 10 gm PO TID [facility] Last Admin: 08/07/18 07:18 Dose: 10 gm Lidocaine (Lidoderm Patch) 1 patch TOP DAILY PRN PRN Reason: PAIN Lorazepam (Ativan Inj (Vial)) 1 mg IVP Q30M PRN; Protocol PRN Reason: CIWA >8 Last Admin: 08/06/18 03:44 Dose: 1 mg Megestrol Acetate (Megace) 800 mg PO DAILY [facility] Last Admin: 08/07/18 08:33 Dose: 800 mg Midodrine () 10 mg PO TID [facility] Last Admin: 08/07/18 07:18 Dose: 10 mg Nitroglycerin (Nitrostat) 0.4 mg SL Q5MIN PRN PRN Reason: Chest Pain Oxycodone HCl (Roxicodone) 5 mg PO Q4HR PRN PRN Reason: Pain 5 to 7 Last Admin: 08/06/18 21:01 Dose: 5 mg Polyethylene Glycol (Miralax) 17 gm PO DAILY [facility] Last Admin: 08/07/18 08:28 Dose: Not Given Multivit/Folic Acid/Iron (Trinatal Rx 1) 1 tab PO DAILYWM [facility] Last Admin: 08/07/18 08:26 Dose: 1 tab Rifaximin (Xifaxan) 550 mg PO BID [facility] Last Admin: 08/07/18 08:25 Dose: 550 mg Sodium Chloride (Normal Saline Flush 0.9%) 10 ml IVP PRN PRN PRN Reason: NEEDED PER PROVIDER ORDERS Last Admin: 08/06/18 03:47 Dose: 10 ml Sodium Chloride (Normal Saline Flush 0.9%) 10 ml IVP 0100,0900,1700 [facility] Last Admin: 08/07/18 08:28 Dose: Not Given Spironolactone (Aldactone) 12.5 mg PO BID [facility] Last Admin: 08/07/18 08:25 Dose: 12.5 mg Temazepam (Restoril) 15 mg PO QPM PRN PRN Reason: Insomnia Thiamine HCl (Vitamin B-1) 100 mg PO DAILY [facility] Last Admin: 08/07/18 08:26 Dose: 100 mg Telmisartan/Hydrochlorothiazid [Telmisartan-Hctz 80-25 mg Tab] 1 tab PO DAILY 04/02/18 Albuterol Sulfate [Albuterol Sulfate Hfa] 2 puffs IH Q4H PRN 04/03/18 - Allergies Allergies/Adverse Reactions: Allergies Allergy/AdvReac Type Severity Reaction Status Date / Time Latex, Natural Rubber Allergy Rash Verified 04/16/18 11:49 lisinopril Allergy Respiratory Verified 04/16/18 11:49 Review of Systems - Constitutional Constitutional: reports: Fatigue (105 this admit; 117.7 04/04 ED visit), Weight loss - Respiratory Respiratory: reports: Cough (moist), SOB at rest - Gastrointestinal Gastrointestinal: reports: Diarrhea, Poor appetite - Musculoskeletal Musculoskeletal: reports: Back pain, Transfer issues (max 2 person assist currently) - Integumentary Integumentary: reports: Dryness, Other (hx of wounds LE) - Neurological Neurological: reports: General weakness, Memory problems, Slurred speech - Psychiatric Psychiatric: reports: Depression, Anxiety - All Other Systems All Other Systems: reports: Other (limited ROS related to lethargy) Physical Exam - Vital Signs Vital Signs: Vital Signs x48h Temp Pulse Pulse Resp BP BP Pulse Ox 08/07/18 08:30 123/64 08/07/18 07:12 37.0 C 107 H 18 119/64 96 08/07/18 03:22 110 H 18 - Physical Exam General Appearance: positive: Mild distress, Lethargic ENT: positive: Dry mucous membranes Neck: positive: No JVD, Trachea midline Respiratory: positive: Diminished throughout, Rales (fine in bases), Rhonchi (moist cough) Abdomen: positive: Abnml bowel sounds (hyperactive), Tenderness, Distended, Taut Skin: positive: Pallor, Dryness Extremities: positive: No pedal edema Neurologic/Psychiatric: positive: Disoriented to time, Weakness, Slurred/abnml speech, Depressed mood/affect, Flat affect Palliative Care - POLST Patient has POLST: No POLST Status: Full Code Pain: Pain worsening, Location (Patient unable to really explain her pain, th ough she reports the bed is quite uncomfortable, and its in her back. She cannot get comfortable. Patient does have chronic back pain, the patient nor could tell me what she had been using prior to hospitalization. She did receive a dose of Flexeril, with severe and prolonged sedation since breakfast, this certainly could be impacted by her underlying health status as well. Has been is quite concerned and is requesting if other medication available to manage pain would like her to be more awake. He understands that this is multifactorial) Tiredness/Fatigue: Severe (7-10) Drowsiness/Sedation: Severe (7-10) Nausea: With vomiting (patient has had vomiting at home; mostly with severe coughing episodes) Depression: Severe (7-10) Anxiety: Moderate (4-6) Performance Status: Patient's functional status has been declining, she is not been able yet to participate in PT/OT evaluation secondary to her lethargy and mild confusion. Patient's perception is functional decline has been ongoing since last hospitalization in March. - Palliative Care Discussion: Attempted 2 times, who have a conversation with patient. Did introduce myself as well as the role of palliative care. Had been was quite concerned, as he did not feel like she was "ready for hospice yet". We discussed in the context of her serious illness, he does understand her liver failure and pneumonia though may be able to recover, that she is still quite frail. We did discuss in the context of her liver failure, and ongoing acute versus chronic symptoms attributed to this, that she would not improve or get better and less she gave up drinking. He does verbalize understanding of this. We did discuss in the context of a supportive environment, as both he and his daughter drink and smoke as well that this will be difficult for her to maintain sobriety are decreased use behaviors, which are quite destructive to her given her current situation. He reports "I do not want to lose her", is somewhat distress ed as they are now just "figuring out about her liver". We discussed that people can compensate for long periods of time, but he does admit that she has been deteriorating particularly over the last 6 months. He does not want to send her to a usp, his parents in a usp and he does not want that for her. We did discuss though sometimes nursing homes at this point are SNFs with the focus to bridge to the home setting so she can continue to get therapy and/or improve. We also discussed about having home services come to them, they had refused it on the last discharge, and reports he could take her to outpatient. He said they are "renovating their house". Did discuss we are all hoping for the best, that she will continue to recover, though with her multiple comorbidities, functional decline, and now severe acute illness related to her liver and pneumonia it could be touching go. He reports that she tends to "hide stuff", and did not recognize how acutely ill she has been.They do not have any advanced directives, will defer this conversation until patient able to participate. I did express my concern for her decline, and worried about how to support her particularly in the face of her alcohol abuse. Results - Lab Results Lab results reviewed: Yes Fish Bones: 08/07/18 05:00 08/07/18 05:00 Lab and Imaging Results: Lab Results x24hrs 08/07/18 08/07/18 08/07/18 Range/Units 05:00 05:00 05:00 WBC 11.7 H (4.8-10.8) x10^3/uL RBC 2.93 L (4.20-5.40) 10^6/uL Hgb 11.1 L (12.0-16.0) g/dL Hct 32.0 L (37.0-47.0) % MCV 109.2 H (81.0-99.0) fL MCH 37.9 H (27.0-31.0) pg MCHC 34.7 (32.0-36.0) g/dL RDW 13.4 (12.0-15.0) % Plt Count 182 (130-450) 10^3/uL MPV 11.3 H (7.9-10.8) fL Neut # (Auto) 8.7 H (1.5-6.6) 10^3/uL Lymph # (Auto) 1.3 L (1.5-3.5) 10^3/uL Cascade # (Auto) 1.4 H (0.0-1.0) 10^3/uL Eos # (Auto) 0.0 (0.0-0.7) 10^3/uL Baso # (Auto) 0.1 (0.0-0.1) 10^3/uL Absolute Nucleated RBC 0.00 x10^3/uL Nucleated RBC % 0.0 /100WBC Sodium 142 (135-145) mmol/L Potassium 3.1 L (3.5-5.0) mmol/L Chloride 105 (101-111) mmol/L Carbon Dioxide 26 (21-32) mmol/L Anion Gap 11.0 (6-13) BUN 5 L (6-20) mg/dL Creatinine 0.4 (0.4-1.0) mg/dL Estimated GFR (MDRD) 158 (>89) Glucose 92 (70-100) mg/dL Calcium 8.0 L (8.5-10.3) mg/dL Total Bilirubin 2.5 H (0.2-1.0) mg/dL AST 60 H (10-42) IU/L ALT 28 (10-60) IU/L Alkaline Phosphatase 192 H (42-121) IU/L Ammonia 31.2 (7-35) umol/L Total Protein 4.5 L (6.7-8.2) g/dL Albumin 2.8 L (3.2-5.5) g/dL Globulin 1.7 L (2.1-4.2) g/dL Albumin/Globulin Ratio 1.6 (1.0-2.2) Impression and Recommendations - Palliative Care Impression: This is a 68-year-old woman who appears older than her stated age, who presents with failure to thrive. She has been getting an outpatient work-up for her acute abdominal pain, and recently had a EGD and colonoscopy. She presents with acute on chronic liver failure, currently withdrawing from alcohol, poor nutritional status with recent 20 pound weight loss, as well as concern for social support for further behavioral changes. Palliative care asked to help clarify goals, patient unable to participate in decision-making today, family conference with regarding current status and perceptions. Recommendations/Counseling Done: 1. Acute on chronic back pain. Patient unable to relay current regimen at home, has been does not feel like she is been taking anything. His perception is she is quite sensitive medications, did speak with hospitalist will discontinue Flexeril for now, and use oxycodone for back pain. 2. Failure to thrive. Patient does have multiple comorbidities, there is increase in complexity of care and outcomes by her tobacco and alcohol abuse. She has now presenting with pneumonia, acute alcohol withdrawal, hepatitis, and chronic symptoms of alcohol abuse. Patient risk for continued decline, currently patient unable to participate in medical decision making. remains hopeful patient will continue to improve. Counseling provided regarding continuum of care/palliative vs hospice care, and transition options at discharge. 3. Advanced care planning. Patient does not have any advanced care planning documents, up to this point in time has been a full code. Given the tenuousness of the situation, has been unwilling to make any other decisions, did introduce concerns regarding both short-term and long-term goals and planning. Patient currently presents is acutely ill, patient has high risk for ongoing decline. Family is hopeful patient will recover and discharged home. Would be helpful to have [facility] consult, to further define treatment plan and goals of care. Spoke with hospitalist, he will request records. Patient does have a meld score of 20, that does put her in a 19.6 % mortality rate. Patient also scores on the Bj index 4. This looks that hospitalized adults age 70 and older and outcome all cause 1 year mortality, it is heavily weighted on functional status. Her 1 year mortality is 34%. Risk calculators cannot predict the future for any one individual, but given estimate of how many people with similar risk factors will live and but not who will live and who will . Most likely what will impact her prognosis going forward will be if she continues to smoke and drink. Time Spent: 60 minutes with greater than 50% of this done in counseling regarding goals of care, family conference with , evaluating current situation and anticipatory guidance. Palliative care setting rapport, for future decision making, hopeful patient will be less lethargic and more able to engage in goals of care conversation tomorrow.
[2018-08-07] MEDS ORDERED: MIDODRINE 2.5 MG TABLET PO PRN (12:11)
--- NOTE | 2018-08-07 12:16 | PROVIDER PROGRESS NOTE ---
Subjective - Prog Note Date Prog Note Date: 08/07/18 - Subjective Pt reports feeling: No change Subjective: pt is alert and oriented to herself and location. pt report she is still weak. she only had a few bites for her breakfast. pt denies fever, chill, chest pain pt's is at the bed side. I discussed with him about pt's medical conditions. He understand his is at critical condition. palliative care will come visit pt. Current Medications - Current Medications Current Medications: Active Medications Acetaminophen (Tylenol) 650 mg PO Q4HR PRN PRN Reason: Pain 1 to 4 Albuterol () 2.5 mg INH RTQ4H PRN PRN Reason: Wheezing Last Admin: 08/05/18 07:39 Dose: 2.5 mg Albuterol/Ipratropium (Duoneb) 3 ml INH Q4HR PRN PRN Reason: Wheezing Last Admin: 08/07/18 03:21 Dose: 3 ml Aspirin ([place] Aspirin) 81 mg PO DAILY [facility] Last Admin: 08/07/18 08:25 Dose: 81 mg Calcium Citrate () 250 mg PO DAILY [facility] Last Admin: 08/07/18 08:26 Dose: 250 mg Famotidine (Pepcid) 20 mg PO DAILY [facility] Last Admin: 08/07/18 08:26 Dose: 20 mg Heparin Sodium (Porcine) () 2,500 unit SUBQ BID [facility] Last Admin: 08/07/18 08:28 Dose: 2,500 unit Hydralazine HCl (Apresoline Inj) 10 mg IVP Q4HR PRN PRN Reason: SBP>160 Piperacillin Sod/Tazobactam (Sod 3.375 gm/ Sodium Chloride) 100 mls @ 200 mls/hr IV Q6H [facility] Vancomycin HCl 1 gm/ Sodium (Chloride) 250 mls @ 167 mls/hr IV BID [facility] Ibuprofen (Motrin) 400 mg PO Q6HR PRN PRN Reason: PAIN Lactulose (Enulose) 10 gm PO TID [facility] Last Admin: 08/07/18 07:18 Dose: 10 gm Lidocaine (Lidoderm Patch) 1 patch TOP DAILY PRN PRN Reason: PAIN Last Admin: 08/07/18 11:23 Dose: 1 patch Lorazepam (Ativan Inj (Vial)) 1 mg IVP Q30M PRN; Protocol PRN Reason: CIWA >8 Last Admin: 08/06/18 03:44 Dose: 1 mg Megestrol Acetate (Megace) 800 mg PO DAILY [facility] Last Admin: 08/07/18 08:33 Dose: 800 mg Midodrine () 10 mg PO TID PRN PRN Reason: hypotension Nitroglycerin (Nitrostat) 0.4 mg SL Q5MIN PRN PRN Reason: Chest Pain Oxycodone HCl (Roxicodone) 5 mg PO Q4HR PRN PRN Reason: Pain 5 to 7 Last Admin: 08/06/18 21:01 Dose: 5 mg Polyethylene Glycol (Miralax) 17 gm PO DAILY [facility] Last Admin: 08/07/18 08:28 Dose: Not Given Multivit/Folic Acid/Iron (Trinatal Rx 1) 1 tab PO DAILYWM [facility] Last Admin: 08/07/18 08:26 Dose: 1 tab Sodium Chloride (Normal Saline Flush 0.9%) 10 ml IVP PRN PRN PRN Reason: NEEDED PER PROVIDER ORDERS Last Admin: 08/06/18 03:47 Dose: 10 ml Sodium Chloride (Normal Saline Flush 0.9%) 10 ml IVP 0100,0900,1700 [facility] Last Admin: 08/07/18 08:28 Dose: Not Given Spironolactone (Aldactone) 12.5 mg PO BID [facility] Last Admin: 08/07/18 08:25 Dose: 12.5 mg Temazepam (Restoril) 15 mg PO QPM PRN PRN Reason: Insomnia Thiamine HCl (Vitamin B-1) 100 mg PO DAILY [facility] Last Admin: 08/07/18 08:26 Dose: 100 mg Telmisartan/Hydrochlorothiazid [Telmisartan-Hctz 80-25 mg Tab] 1 tab PO DAILY 04/02/18 Albuterol Sulfate [Albuterol Sulfate Hfa] 2 puffs IH Q4H PRN 04/03/18 Objective - Vital Signs/Intake & Output Reviewed Vital Signs: Yes Vital Signs: Vital Signs x48h Temp Pulse Resp BP BP Pulse Ox 08/07/18 08:30 123/64 08/07/18 07:12 37.0 C 107 H 18 119/64 96 Intake & Output: Intake & Output 08/04/18 08/05/18 08/06/18 08/07/18 23:59 23:59 23:59 23:59 Intake Total 2584.2 1470 1740 400 Output Total 1175 400 450 900 Balance 1409.2 1070 1290 -500 - Objective General Appearance: positive: No acute distress, Alert. negative: Lethargic Eyes Bilateral: positive: Normal inspection, PERRL, No lid inflammation, Conjunctivae nml ENT: positive: ENT inspection nml, Pharynx nml, No signs of dehydration. negative: Purulent nasal drainage, Pharyngeal erythema, Oral lesions Neck: positive: Nml inspection, Thyroid nml, No JVD. negative: Trachea midline, Thyromegaly, Lymphadenopathy (R), Lymphadenopathy (L), Stiff neck, Swelling/bruising, Tracheal deviation Respiratory: positive: Chest non-tender, No respiratory distress. negative: Wheezes, Rales, Rhonchi Cardiovascular: positive: Regular rate & rhythm, No murmur, No gallop. negative: Irregularly irregular, Extrasystoles, Tachycardia, Bradycardia, JVD present, Systolic murmur, Diastolic murmur Peripheral Pulses: 2+ Radial (R), 2+ Radial (L), 2+ Dorsalis pedis (R), 2+ Dorsalis pedis (L) Abdomen: positive: Non-tender, No organomegaly, Nml bowel sounds. negative: No distention, Tenderness, Guarding, Rebound Back: positive: Nml inspection. negative: CVA tenderness (R), CVA tenderness (L) Skin: positive: Color nml, No rash, Warm, Dry. negative: Cyanosis, Diaphoresis, Pallor Extremities: positive: Non-tender, Nml appearance. negative: Calf tenderness, Eleanor's sign/cords Neurologic/Psychiatric: positive: Sensation nml. negative: Weakness, Sensory loss, Facial droop, Slurred/abnml speech, Depressed mood/affect - Lab Results Fish Bones: 08/07/18 05:00 08/07/18 05:00 Other Labs: Lab Results x24hrs 08/07/18 08/07/18 08/07/18 Range/Units 05:00 05:00 05:00 WBC 11.7 H (4.8-10.8) x10^3/uL RBC 2.93 L (4.20-5.40) 10^6/uL Hgb 11.1 L (12.0-16.0) g/dL Hct 32.0 L (37.0-47.0) % MCV 109.2 H (81.0-99.0) fL MCH 37.9 H (27.0-31.0) pg MCHC 34.7 (32.0-36.0) g/dL RDW 13.4 (12.0-15.0) % Plt Count 182 (130-450) 10^3/uL MPV 11.3 H (7.9-10.8) fL Neut # (Auto) 8.7 H (1.5-6.6) 10^3/uL Lymph # (Auto) 1.3 L (1.5-3.5) 10^3/uL [place] # (Auto) 1.4 H (0.0-1.0) 10^3/uL Eos # (Auto) 0.0 (0.0-0.7) 10^3/uL Baso # (Auto) 0.1 (0.0-0.1) 10^3/uL Absolute Nucleated RBC 0.00 x10^3/uL Nucleated RBC % 0.0 /100WBC Sodium 142 (135-145) mmol/L Potassium 3.1 L (3.5-5.0) mmol/L Chloride 105 (101-111) mmol/L Carbon Dioxide 26 (21-32) mmol/L Anion Gap 11.0 (6-13) BUN 5 L (6-20) mg/dL Creatinine 0.4 (0.4-1.0) mg/dL Estimated GFR (MDRD) 158 (>89) Glucose 92 (70-100) mg/dL Calcium 8.0 L (8.5-10.3) mg/dL Total Bilirubin 2.5 H (0.2-1.0) mg/dL AST 60 H (10-42) IU/L ALT 28 (10-60) IU/L Alkaline Phosphatase 192 H (42-121) IU/L Ammonia 31.2 (7-35) umol/L Total Protein 4.5 L (6.7-8.2) g/dL Albumin 2.8 L (3.2-5.5) g/dL Globulin 1.7 L (2.1-4.2) g/dL Albumin/Globulin Ratio 1.6 (1.0-2.2) ABX Reporting Has patient been on IV antibiotics over the past 48 hours?: Yes Sepsis Event Note (H) - Evaluation Possible source of Sepsis: positive: Pulmonary - Sepsis Criteria Sepsis Criteria: Recorded Heart Rate greater than 90 bpm Assessment/Plan - Problem List (1) Chest pain Impression: 08/07 no chest pain, stable 08/06 pt denies chest pain today serial troponin were negative. EKG was ST. pt report CP is on and off, like atypical chest pain ECHO reveals unremarkable. continue nitro PRN, ASA 2. alcoholism 08/07 she still drink alcohol just before the admission, per pt report continue CIWA, continue folic acid and B1 08/06 pt report she still drink alcohol just before admission continue folic acid and B1 continue neuro check shelter alcohol abuse with liver failure d/c banana bag for precaution of fluid overload for her ascites, instead given pt vitamin and B1 continue CIWA. pt was still positive for alcohol at the admission 3. Hyponatremia, hypervolemia resolved 4. hypotension 08/07 it better, now her SBP is 123 PRN Midodrine tele and vital monitor encourage pt eat 08/06 bolus of 250 ml of NS schedule Midodrinine tele and vital monitor encourage pt eat pt had elevated BP with ST, add metoprolol. but now pt present hypotension stop all BP meds, continue vital monitor Q4H bolus of NS and precaution of fluid overload midodrine tid 5. 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 pt do not need agency paracentesis now 6. ETOH induced hepatitis monitor lab, advise pt stop drinking. continue Supportive care 7. Chronic BLLE edema sec to liver disease 08/06 Etoh hepatitis, will hold lasix now for hypotension 8. hypoalbuminemia likely from etoh related hepatic failure and malnutrional with decrease oncotic pressure contributing to anasarca and generalized edema. pt may need IV of albumin 9. Macrocytosis H/H stable and no mention of UGIB/LGIB. stable b12/FA levels. 10. FTT wit anorexia and weight loss, loss of appetite 08/07 pt still has poor appetite continue Megace encourage pt eat 08/06 BMI 19.2, etoh related nutrional deficiencies likely, will need nutritional consult here, treat underlying SBP to improve pain and increase PO intake. encourage pt eat add megace 11. current tobacco abuse disorder PRN for nicotine replacement 12. pneumonia 08/07 new CXR reveals worsen at left side and small pleural effusion. pt's WBC is down to 11.7 continue Zosyn and add Vancomycin, since pt is HCAP once low dosage of Lasix, pt has hypotensive, now she is better continue breath treatment, supplement of O2 as needed 08/06 pt's cough, pulmonary congestion is significant reduced. 96% sats on room air, significantly improved continue Zosyn continue RT treatment as needed pt present cough, congestion, elevated WBC, but without fever, chill order CXR, which reveals possible aspiration and left side pneumonia treat with Zosyn 13. advanced care plan 08/07 dedrick Nova saw pt and will followup on tomorrow as well, we will followup the consultation. discussed with pt about her code status, palliative care and hospice care. pt agree to have palliative care consult on tomorrow. Qualifiers: Chest pain type: unspecified Qualified Code(s): R07.9 - Chest pain, unspecified
[2018-08-07] MEDS: SODIUM CHLORIDE FLUSH 0.9% 10 ML SYRINGE IVP PRN ×2 (14:06→22:57)
[2018-08-07] MEDS: ACETAMINOPHEN 325 MG TABLET PO PRN (14:06)
[2018-08-07] MEDS: VANCOMYCIN INJ 1 GM in SODIUM CHLORIDE 0.9% 250 ML IV SCH (20:51)
[2018-08-07] MEDS ORDERED: VANCOMYCIN 1 GM VIAL ONE (20:53)
[2018-08-07] MEDS ORDERED: SODIUM CHLORIDE 0.9% 250 ML IV ONE (20:53)
[2018-08-07] MEDS: oxyCODONE 5 MG TABLET PO PRN (21:29)
[2018-08-07] MEDS: LACTOBACILLUS RHAMNOSUS GG CAPSULE PO SCH (22:40)
[2018-08-08] MEDS ORDERED: SODIUM CHLORIDE 0.9% 500 ML IV ONE (01:55)
[2018-08-08] MEDS: PIPERACILLIN/TAZOBACTAM 3.375 GM in SODIUM CHLORIDE 0.9% MINIBAG 100 ML IV SCH ×4 (02:05→20:19)
[2018-08-08] MEDS: SODIUM CHLORIDE FLUSH 0.9% 10 ML SYRINGE IVP SCH ×3 (02:06→17:34)
[2018-08-08] MEDS: SODIUM CHLORIDE 0.9% 500 ML IV PRN (02:41)
[2018-08-08] MEDS: MIDODRINE 2.5 MG TABLET PO SCH ×3 (06:24→21:36)
[2018-08-08 06:30] LABS: BASOPHILS # (AUTO) 0.1 10^3/uL (0.0-0.1); EOSINOPHILS % (AUTO) 0.2 %; LYMPHOCYTES # (AUTO) 1.1 10^3/uL (1.5-3.5); LYMPHOCYTES % (AUTO) 9.6 %; MEAN CORPUSCULAR HEMOGLOBIN 36.9 pg (27.0-31.0); MEAN CORPUSCULAR HGB CONC 34.4 g/dL (32.0-36.0); MEAN CORPUSCULAR VOLUME 107.4 fL (81.0-99.0); MEAN PLATELET VOLUME 11.3 fL (7.9-10.8); MONOCYTES # (AUTO) 1.1 10^3/uL (0.0-1.0); MONOCYTES % (AUTO) 10.2 %; NEUTROPHILS # (AUTO) 8.6 10^3/uL (1.5-6.6); NEUTROPHILS % (AUTO) 78.5 %; PLT - PLATELET COUNT 171 10^3/uL (130-450); RED BLOOD COUNT 3.25 10^6/uL (4.20-5.40); RED CELL DISTRIBUTION WIDTH 13.4 % (12.0-15.0); WHITE BLOOD COUNT 10.9 x10^3/uL (4.8-10.8)
[2018-08-08] MEDS: LACTULOSE 10 GM /15 ML UDC PO SCH ×2 (06:32→21:36)
[2018-08-08 06:46] LABS: ALBUMIN 2.2 g/dL (3.2-5.5); ALBUMIN/GLOBULIN RATIO 1.2 (1.0-2.2); ALKALINE PHOSPHATASE 192 IU/L (42-121); ALT ALANINE AMINOTRANSFERASE 28 IU/L (10-60); AST ASPARTATE AMINOTRANSFERASE 62 IU/L (10-42); BILIRUBIN,TOTAL 2.4 mg/dL (0.2-1.0); BUN - BLOOD UREA NITROGEN < 5 mg/dL (6-20); CALCIUM 7.7 mg/dL (8.5-10.3); CARBON DIOXIDE - CO2 24 mmol/L (21-32); CHLORIDE 104 mmol/L (101-111); CREATININE 0.3 mg/dL (0.4-1.0); GFR - MDRD 220 (>89); GLUCOSE 94 mg/dL (70-100); SODIUM 139 mmol/L (135-145)
[2018-08-08] MEDS ORDERED: POTASSIUM CHLOR 10 MEQ/100 ML 10 MEQ/100 ML BAG IV ONE (07:19)
[2018-08-08] MEDS ORDERED: POTASSIUM CHLORIDE 20 MEQ TABLET PO ONE (08:00)
[2018-08-08] MEDS: POTASSIUM CHLOR 10 MEQ/100 ML 10 MEQ/100 ML BAG IV SCH ×2 (08:14→09:56)
[2018-08-08] MEDS: HEPARIN 5,000 UNIT/ML VIAL SUBQ SCH ×2 (08:39→21:56)
[2018-08-08] MEDS: MEGESTROL 400 MG/10 ML UDC PO SCH (08:44)
[2018-08-08] MEDS: ACETAMINOPHEN 325 MG TABLET PO PRN ×3 (08:44→23:41)
[2018-08-08] MEDS: SACCHAROMYCES BOULARDII 250 MG CAPSULE PO SCH ×2 (08:44→17:34)
[2018-08-08] MEDS: LACTOBACILLUS RHAMNOSUS GG CAPSULE PO SCH (08:45)
[2018-08-08] MEDS: PRENATAL VITAMIN TABLET PO SCH (08:45)
[2018-08-08] MEDS: CALCIUM CITRATE 250 MG TABLET PO SCH (08:45)
[2018-08-08] MEDS: FAMOTIDINE 20 MG TABLET PO SCH (08:46)
[2018-08-08] MEDS: ASPIRIN CHEW 81 MG TABLET PO SCH (08:46)
[2018-08-08] MEDS: SPIRONOLACTONE 25 MG TABLET PO SCH ×2 (08:47→21:36)
[2018-08-08] MEDS: THIAMINE 100 MG TABLET PO SCH (08:47)
[2018-08-08] MEDS: POLYETHYLENE GLYCOL 3350 17 GM PACKET PO SCH (08:48)
[2018-08-08] MEDS ORDERED: FUROSEMIDE 20 MG TABLET PO SCH (09:00)
[2018-08-08] MEDS: VANCOMYCIN INJ 1 GM in SODIUM CHLORIDE 0.9% 250 ML IV SCH ×2 (09:56→21:59)
--- NOTE | 2018-08-08 10:41 | PROVIDER PROGRESS NOTE ---
Subjective - Prog Note Date Prog Note Date: 08/08/18 - Subjective Pt reports feeling: No change Subjective: pt present cough and congestion. pt had pneumonia and require O2 supplement. Pt's WBC is still slight higher than normal. pt's oral input is still poor although pt was prescribed high dosage of Megace. Palliative care provider discussed with pt about her care plan. pt request full code. pt denies chest pain, fever, chill. Current Medications - Current Medications Current Medications: Active Medications Acetaminophen (Tylenol) 650 mg PO Q4HR PRN PRN Reason: Pain 1 to 4 Last Admin: 08/08/18 08:44 Dose: 650 mg Albuterol () 2.5 mg INH RTQ4H PRN PRN Reason: Wheezing Last Admin: 08/05/18 07:39 Dose: 2.5 mg Albuterol/Ipratropium (Duoneb) 3 ml INH Q4HR PRN PRN Reason: Wheezing Last Admin: 08/07/18 18:09 Dose: 3 ml Aspirin ([place] Aspirin) 81 mg PO DAILY [facility] Last Admin: 08/08/18 08:46 Dose: 81 mg Calcium Citrate () 250 mg PO DAILY [facility] Last Admin: 08/08/18 08:45 Dose: 250 mg Famotidine (Pepcid) 20 mg PO DAILY [facility] Last Admin: 08/08/18 08:46 Dose: 20 mg Furosemide (Lasix) 20 mg PO DAILY [facility] Last Admin: 08/08/18 08:46 Dose: 20 mg Guaifenesin (Mucinex) 600 mg PO BID [facility] Heparin Sodium (Porcine) () 2,500 unit SUBQ BID [facility] Last Admin: 08/08/18 08:39 Dose: 2,500 unit Hydralazine HCl (Apresoline Inj) 10 mg IVP Q4HR PRN PRN Reason: SBP>160 Piperacillin Sod/Tazobactam (Sod 3.375 gm/ Sodium Chloride) 100 mls @ 200 ml s/hr IV Q6H [facility] Last Infusion: 08/08/18 09:38 Dose: Infused Vancomycin HCl 1 gm/ Sodium (Chloride) 250 mls @ 167 mls/hr IV BID [facility] Last Admin: 08/08/18 09:56 Dose: 167 mls/hr Sodium Chloride (Normal Saline 0.9%) 500 mls @ 0 mls/hr IV Q24H PRN PRN Reason: TKO RATE Last Infusion: 08/08/18 04:02 Dose: 0 mls/hr Ibuprofen (Motrin) 400 mg PO Q6HR PRN PRN Reason: PAIN Lactobacillus Rhamnosus (Culturelle) 1 cap PO DAILY [facility] Last Admin: 08/08/18 08:45 Dose: 1 cap Lactulose (Enulose) 10 gm PO BID [facility] Lidocaine (Lidoderm Patch) 1 patch TOP DAILY PRN PRN Reason: PAIN Last Admin: 08/07/18 11:23 Dose: 1 patch Lorazepam (Ativan Inj (Vial)) 1 mg IVP Q30M PRN; Protocol PRN Reason: CIWA >8 Last Admin: 08/06/18 03:44 Dose: 1 mg Megestrol Acetate (Megace) 800 mg PO DAILY [facility] Last Admin: 08/08/18 08:44 Dose: 800 mg Midodrine () 10 mg PO TID [facility] Last Admin: 08/08/18 06:24 Dose: 10 mg Nitroglycerin (Nitrostat) 0.4 mg SL Q5MIN PRN PRN Reason: Chest Pain Oxycodone HCl (Roxicodone) 5 mg PO Q4HR PRN PRN Reason: Pain 5 to 7 Last Admin: 08/07/18 21:29 Dose: 5 mg Polyethylene Glycol (Miralax) 17 gm PO DAILY [facility] Last Admin: 08/08/18 08:48 Dose: Not Given Multivit/Folic Acid/Iron (Trinatal Rx 1) 1 tab PO DAILYWM [facility] Last Admin: 08/08/18 08:45 Dose: 1 tab Saccharomyces Boulardii (Florastor) 500 mg PO BIDWM [facility] Last Admin: 08/08/18 08:44 Dose: 500 mg Sodium Chloride (Normal Saline Flush 0.9%) 10 ml IVP PRN PRN PRN Reason: NEEDED PER PROVIDER ORDERS Last Admin: 08/07/18 22:57 Dose: 10 ml Sodium Chloride (Normal Saline Flush 0.9%) 10 ml IVP 0100,0900,1700 [facility] Last Admin: 08/08/18 08:28 Dose: 10 ml Spironolactone (Aldactone) 12.5 mg PO BID [facility] Last Admin: 08/08/18 08:47 Dose: 12.5 mg Temazepam (Restoril) 15 mg PO QPM PRN PRN Reason: Insomnia Thiamine HCl (Vitamin B-1) 100 mg PO DAILY [facility] Last Admin: 08/08/18 08:47 Dose: 100 mg Telmisartan/Hydrochlorothiazid [Telmisartan-Hctz 80-25 mg Tab] 1 tab PO DAILY 04/02/18 Albuterol Sulfate [Albuterol Sulfate Hfa] 2 puffs IH Q4H PRN 04/03/18 Objective - Vital Signs/Intake & Output Reviewed Vital Signs: Yes Vital Signs: Vital Signs x48h Temp Pulse Resp BP Pulse Ox 08/08/18 06:20 37.1 C 90 14 110/58 L 94 Intake & Output: Intake & Output 08/05/18 08/06/18 08/07/18 08/08/18 23:59 23:59 23:59 23:59 Intake Total 1470 1740 1275 771.333 Output Total 568 884 3964 250 Balance 1070 1290 275 521.333 - Objective General Appearance: positive: No acute distress, Mild distress. negative: Lethargic Eyes Bilateral: positive: Normal inspection, PERRL, No lid inflammation, Conj unctivae nml ENT: positive: ENT inspection nml, Pharynx nml, No signs of dehydration. negative: Purulent nasal drainage, Pharyngeal erythema, Oral lesions Neck: positive: Nml inspection, Thyroid nml, No JVD, Trachea midline. negative: Thyromegaly, Lymphadenopathy (R), Lymphadenopathy (L), Stiff neck, Swelling/bruising, Tracheal deviation Respiratory: positive: Chest non-tender, No respiratory distress. negative: Wheezes, Rales, Rhonchi Cardiovascular: positive: Regular rate & rhythm, No murmur, No gallop. negative: Irregularly irregular, Extrasystoles, Tachycardia, Bradycardia, JVD present, Systolic murmur, Diastolic murmur Peripheral Pulses: 2+ Radial (R), 2+ Radial (L), 2+ Dorsalis pedis (R), 2+ Dorsalis pedis (L) Abdomen: positive: Non-tender, No organomegaly, Nml bowel sounds, No distention. negative: Tenderness, Guarding, Rebound Back: positive: Nml inspection. negative: CVA tenderness (R), CVA tenderness (L) Skin: positive: Color nml, No rash, Warm, Dry. negative: Cyanosis, Diaphoresis, Pallor Extremities: positive: Non-tender, Nml appearance. negative: Calf tenderness, Joint swelling, Eleanor's sign/cords Neurologic/Psychiatric: positive: Sensation nml, Mood/affect nml. negative: Sensory loss, Facial droop, Slurred/abnml speech, Depressed mood/affect - Lab Results Fish Bones: 08/08/18 05:58 08/08/18 05:58 Other Labs: Lab Results x24hrs 08/08/18 08/08/18 08/08/18 Range/Units 05:58 05:58 05:58 WBC 10.9 H (4.8-10.8) x10^3/uL RBC 3.25 L (4.20-5.40) 10^6/uL Hgb 12.0 (12.0-16.0) g/dL Hct 34.9 L (37.0-47.0) % MCV 107.4 H (81.0-99.0) fL MCH 36.9 H (27.0-31.0) pg MCHC 34.4 (32.0-36.0) g/dL RDW 13.4 (12.0-15.0) % Plt Count 171 (130-450) 10^3/uL MPV 11.3 H (7.9-10.8) fL Neut # (Auto) 8.6 H (1.5-6.6) 10^3/uL Lymph # (Auto) 1.1 L (1.5-3.5) 10^3/uL [place] # (Auto) 1.1 H (0.0-1.0) 10^3/uL Eos # (Auto) 0.0 (0.0-0.7) 10^3/uL Baso # (Auto) 0.1 (0.0-0.1) 10^3/uL Absolute Nucleated RBC 0.00 x10^3/uL Nucleated RBC % 0.0 /100WBC Sodium 139 (135-145) mmol/L Potassium 3.1 L (3.5-5.0) mmol/L Chloride 104 (101-111) mmol/L Carbon Dioxide 24 (21-32) mmol/L Anion Gap 11.0 (6-13) BUN < 5 L (6-20) mg/dL Creatinine 0.3 L (0.4-1.0) mg/dL Estimated GFR (MDRD) 220 (>89) Glucose 94 (70-100) mg/dL Calcium 7.7 L (8.5-10.3) mg/dL Total Bilirubin 2.4 H (0.2-1.0) mg/dL AST 62 H (10-42) IU/L ALT 28 (10-60) IU/L Alkaline Phosphatase 192 H (42-121) IU/L Ammonia 35.6 H (7-35) umol/L Total Protein 4.0 L (6.7-8.2) g/dL Albumin 2.2 L (3.2-5.5) g/dL Globulin 1.8 L (2.1-4.2) g/dL Albumin/Globulin Ratio 1.2 (1.0-2.2) ABX Reporting Has patient been on IV antibiotics over the past 48 hours?: Yes Sepsis Event Note (H) - Evaluation Current Stage of Sepsis: Ruled out Possible source of Sepsis: positive: Pulmonary - Sepsis Criteria Sepsis Criteria: Recorded Heart Rate greater than 90 bpm Assessment/Plan - Problem List (1) Chest pain Impression: 08/08 pt denies chest pain. 08/07 no chest pain, stable 08/06 pt denies chest pain today serial troponin were negative. EKG was ST. pt report CP is on and off, like atypical chest pain ECHO reveals unremarkable. continue nitro PRN, ASA 2. alcoholism 08/08 discussed with pt, she is willing to give up drinking at this moment 08/07 she still drink alcohol just before the admission, per pt report continue CIWA, continue folic acid and B1 08/06 pt report she still drink alcohol just before admission continue folic acid and B1 continue neuro check [facility] alcohol abuse with liver failure d/c banana bag for precaution of fluid overload for her ascites, instead given pt vitamin and B1 continue CIWA. pt was still positive for alcohol at the admission 3. Hyponatremia, hypervolemia resolved 4. hypotension 08/08 remain stable continue midodrine continue vital monitor 08/07 it better, now her SBP is 123 PRN Midodrine tele and vital monitor encourage pt eat 08/06 bolus of 250 ml of NS schedule Midodrinine tele and vital monitor encourage pt eat pt had elevated BP with ST, add metoprolol. but now pt present hypotension stop all BP meds, continue vital monitor Q4H bolus of NS and precaution of fluid overload midodrine tid 5. 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 continue monitor Large ascites seen on CT with fatty liver, hole diuretics for hypotensive, med mgmt, pt has no SOB, and pt's abdomen is not extensive distention. pt do not need agency paracentesis now 6. ETOH induced hepatitis monitor lab, advise pt stop drinking. continue Supportive care 7. Chronic BLLE edema sec to liver disease 08/06 Etoh hepatitis, will hold lasix now for hypotension 8. hypoalbuminemia 08/08 pt had albumin IV, and albumin level increased after infusion continue lab monitor likely from etoh related hepatic failure and malnutrional with decrease oncotic pressure contributing to anasarca and generalized edema. pt may need IV of albumin 9. Macrocytosis H/H stable and no mention of UGIB/LGIB. stable b12/FA levels. 10. FTT wit anorexia and weight loss, loss of appetite 08/08 slight increase of oral imput, still poor appetite consult with printed circuit board drafter continue Megace 08/07 pt still has poor appetite continue Megace encourage pt eat 08/06 BMI 19.2, etoh related nutrional deficiencies likely, will need nutritional consult here, treat underlying SBP to improve pain and increase PO intake. encourage pt eat add megace 11. current tobacco abuse disorder PRN for nicotine replacement 12. pneumonia 08/08 WBC is 10.9 today, pt present cough with pulmonary congestion continue IV of antibiotics add muscinex, add lower dosage of Lasix for pleural effusion, since pt has normative BP and she can tolerate 08/07 new CXR reveals worsen at left side and small pleural effusion. pt's WBC is down to 11.7 continue Zosyn and add Vancomycin, since pt is HCAP once low dosage of Lasix, pt has hypotensive, now she is better continue breath treatment, supplement of O2 as needed 08/06 pt's cough, pulmonary congestion is significant reduced. 96% sats on room air, significantly improved continue Zosyn continue RT treatment as needed pt present cough, congestion, elevated WBC, but without fever, chill order CXR, which reveals possible aspiration and left side pneumonia treat with Zosyn 13. advanced care plan 08/07 dedrick Nova saw pt and will followup on tomorrow as well, we will followup the consultation. discussed with pt about her code status, palliative care and hospice care. pt agree to have palliative care consult on tomorrow. Qualifiers: Chest pain type: unspecified Qualified Code(s): R07.9 - Chest pain, unsp ecified
[2018-08-08] MEDS: guaiFENesin 600 MG TABLET PO SCH ×2 (11:11→21:36)
[2018-08-08] MEDS: IPRATROPIUM/ALBUTEROL 3 ML NEB INH PRN ×2 (11:54→23:49)
--- NOTE | 2018-08-08 16:46 | CONSULTATION NOTE ---
Palliative Care Follow Up - Referral Referring Provider: Severino Quintero MD Time of Visit: [id number] Referral setting: Hospitalized patient Referral Reason: FTT/Liver Failure/pneumonia/Goals of care - Information Sources Records reviewed: Previous records reviewed History/Review of Systems obtained from: Patient Exam limitations: Clinical condition (patient A & O for visit; did not recall meeting me yesterday; willing to engage in conversation) - History of Present Illness Update Brief HPI Update: This is a 68-year-old woman who presents with failure to thrive, she presented acutely with alcohol withdrawal, pneumonia, and liver failure. She has slowly improved, today she is awake and alert. She is able to engage in conversation, she does not remember the last few days, nor meeting me. She is aware that she has pneumonia, she is aware of the seriousness of her illness as far as her liver failure, she has been through withdrawals before. She is feeling quite weak and shaky, she does report she finally can take a deep breath without any pain. We did discuss in the context of her current situation, her concerns as well as what was acceptable as a transition plan. She was willing to talk about her depression, her recent grief and loss, and her long-term history with alcohol. Patient's failure to thrive has been going on for a couple years, most acutely over the last few months. She reports her functional status is declined since she developed dropfoot, she attributes [place] She has had to wear a brace regarding this, and has impacted her functional status significantly. She reports that she has had early satiety, increased pain with eating, has had no appetite at all. She has continued to drink despite her abdominal pain and has been working with a Dr. Chaney at [facility]. I did obtain his records, she did have an EGD/colonoscopy on 07/27. It did show an esophageal nodule, Kidd's esophagus, hemorrhagic gastritis, normal duodenum, colon petechiae, descending colon polyp, and diverticulosis. Patient has not had received the results of her biopsies yet, final diagnosis shows duodenal mucosa negative for celiac sprue, dysplasia and malignancy, gastric biopsy negative for gastritis and Helicobacter, but changes suggestive of reacti ve gastropathy. 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 Negative esophageal biopsy negative right colon biopsy and one tubular adenoma in the left colon. Findings do not support other than her ongoing alcohol abuse, GERD symptoms, early satiety most likely related to her ascites, and ongoing functional decli ne. She does have multiple metabolic abnormalities, and poor nutritional status. She describes symptoms of gastric stasis, when she sips ensure it just sits there, nothing seems to be moving through. Social History - Living Situation Living arrangement: At home Living Situation: With spouse/s.o., With family Support System: She expresses concerns regarding her returning to her home environment, both her daughter and smoke and drink. She is aware she needs to get both up given her severity of her pneumonia, COPD, and liver failure. Does not want home services because the house is in disrepair, she reports she has not been able to keep up with things. She does report her daughter helps oversee keep the settings managed, despite the ongoing issues around drinking. Medications/Allergies - Medications Active Medication List: Active Medications Acetaminophen (Tylenol) 650 mg PO Q4HR PRN PRN Reason: Pain 1 to 4 Last Admin: 08/08/18 14:23 Dose: 650 mg Albuterol () 2.5 mg INH RTQ4H PRN PRN Reason: Wheezing Last Admin: 08/05/18 07:39 Dose: 2.5 mg Albuterol/Ipratropium (Duoneb) 3 ml INH Q4HR PRN PRN Reason: Wheezing Last Admin: 08/08/18 11:54 Dose: 3 ml Aspirin ([place] Aspirin) 81 mg PO DAILY [facility] Last Admin: 08/08/18 08:46 Dose: 81 mg Calcium Citrate () 250 mg PO DAILY [facility] Last Admin: 08/08/18 08:45 Dose: 250 mg Famotidine (Pepcid) 20 mg PO DAILY [facility] Last Admin: 08/08/18 08:46 Dose: 20 mg Furosemide (Lasix) 20 mg PO DAILY [facility] Last Admin: 08/08/18 08:46 Dose: 20 mg Guaifenesin (Mucinex) 600 mg PO BID [facility] Last Admin: 08/08/18 11:11 Dose: 600 mg Heparin Sodium (Porcine) () 2,500 unit SUBQ BID [facility] Last Admin: 08/08/18 08:39 Dose: 2,500 unit Hydralazine HCl (Apresoline Inj) 10 mg IVP Q4HR PRN PRN Reason: SBP>160 Piperacillin Sod/Tazobactam (Sod 3.375 gm/ Sodium Chloride) 100 mls @ 200 mls/hr IV Q6H [facility] Last Infusion: 08/08/18 14:55 Dose: Infused Vancomycin HCl 1 gm/ Sodium (Chloride) 250 mls @ 167 mls/hr IV BID [facility] Last Infusion: 08/08/18 11:48 Dose: Infused Sodium Chloride (Normal Saline 0.9%) 500 mls @ 0 mls/hr IV Q24H PRN PRN Reason: TKO RATE Last Infusion: 08/08/18 04:02 Dose: 0 mls/hr Ibuprofen (Motrin) 400 mg PO Q6HR PRN PRN Reason: PAIN Lactobacillus Rhamnosus (Culturelle) 1 cap PO DAILY [facility] Last Admin: 08/08/18 08:45 Dose: 1 cap Lactulose (Enulose) 10 gm PO BID [facility] Lidocaine (Lidoderm Patch) 1 patch TOP DAILY PRN PRN Reason: PAIN Last Admin: 08/07/18 11:23 Dose: 1 patch Lorazepam (Ativan Inj (Vial)) 1 mg IVP Q30M PRN; Protocol PRN Reason: CIWA >8 Last Admin: 08/06/18 03:44 Dose: 1 mg Megestrol Acetate (Megace) 800 mg PO DAILY [facility] Last Admin: 08/08/18 08:44 Dose: 800 mg Midodrine () 10 mg PO TID [facility] Last Admin: 08/08/18 14:23 Dose: 10 mg Nitroglycerin (Nitrostat) 0.4 mg SL Q5MIN PRN PRN Reason: Chest Pain Oxycodone HCl (Roxicodone) 5 mg PO Q4HR PRN PRN Reason: Pain 5 to 7 Last Admin: 08/07/18 21:29 Dose: 5 mg Polyethylene Glycol (Miralax) 17 gm PO DAILY [facility] Last Admin: 08/08/18 08:48 Dose: Not Given Multivit/Folic Acid/Iron (Trinatal Rx 1) 1 tab PO DAILYWM [facility] Last Admin: 08/08/18 08:45 Dose: 1 tab Saccharomyces Boulardii (Florastor) 500 mg PO BIDWM [facility] Last Admin: 08/08/18 08:44 Dose: 500 mg Sodium Chloride (Normal Saline Flush 0.9%) 10 ml IVP PRN PRN PRN Reason: NEEDED PER PROVIDER ORDERS Last Admin: 08/07/18 22:57 Dose: 10 ml Sodium Chloride (Normal Saline Flush 0.9%) 10 ml IVP 0100,0900,1700 [facility] Last Admin: 08/08/18 08:28 Dose: 10 ml Spironolactone (Aldactone) 12.5 mg PO BID [facility] Last Admin: 08/08/18 08:47 Dose: 12.5 mg Temazepam (Restoril) 15 mg PO QPM PRN PRN Reason: Insomnia Thiamine HCl (Vitamin B-1) 100 mg PO DAILY [facility] Last Admin: 08/08/18 08:47 Dose: 100 mg Telmisartan/Hydrochlorothiazid [Telmisartan-Hctz 80-25 mg Tab] 1 tab PO DAILY 04/02/18 Albuterol Sulfate [Albuterol Sulfate Hfa] 2 puffs IH Q4H PRN 04/03/18 - Allergies Allergies/Adverse Reactions: Allergies Allergy/AdvReac Type Severity Reaction Status Date / Time Latex, Natural Rubber Allergy Rash Verified 04/16/18 11:49 lisinopril Allergy Respiratory Verified 04/16/18 11:49 Review of Systems - Constitutional Constitutional: reports: Fatigue, Chills (c/o shakes when up; attributes to alcohol withdrawel), Poor appetite, Weight loss. denies: Fever - Eyes Eyes: reports: Vision loss, Corrective lenses - Ears, Nose & Throat Ears, Nose & Throat: reports: Hearing loss, Dental decay, Dry mouth - Cardiovascular Cardiovascular: reports: Decr. exercise tolerance - Respiratory Respiratory: reports: Cough, SOB with exertion, Pleuritic pain (c/o pain but improving with deep inspiration). denies: SOB at rest - Gastrointestinal Gastrointestinal: reports: Diarrhea (loose bowels with lactulose), Nausea, Reflux/heartburn, Bloating, Poor appetite, Early satiety. denies: Vomiting - Genitourinary Genitourinary: reports: Urgency - Musculoskeletal Musculoskeletal: reports: Back pain (improved), Stiffness, Muscle weakness, Assistive devices (using walker with therapy) - Integumentary Integumentary: reports: Dryness - Neurological Neurological: reports: General weakness, Memory problems (does not recall much of hospitalization; feels is improved today) - Psychiatric Psychiatric: reports: Depression (reports has been worsening over the last year; more acutely over the last few months), Anxiety - Endocrine Endocrine: reports: Intolerance to cold - All Other Systems All Other Systems: reports: Reviewed and negative Physical Exam - Vital Signs Vital Signs: Vital Signs x48h Pulse Resp 08/08/18 11:52 102 H 20 - Physical Exam General Appearance: positive: Alert Eyes Bilateral: positive: Normal inspection, No scleral icterus ENT: positive: Other (poor oral dentition) Neck: positive: Trachea midline Cardiovascular: positive: Tachycardia Respiratory: positive: Diminished in bases, Rhonchi (upper airway; moist cough) Abdomen: positive: Abnml bowel sounds (hyperactive), Tenderness, Distended, Taut Skin: positive: Pallor, Dryness, Bruising Extremities: positive: No pedal edema Neurologic/Psychiatric: positive: Oriented x3, Weakness, Depressed mood/affect, Flat affect Palliative Care - POLST Patient has POLST: No POLST Status: Full Code Pain: Pain improved, Location (lower back; reports improved with being up and in chair; denies needing pain medication) Tiredness/Fatigue: Severe (7-10) Drowsiness/Sedation: Moderate (4-6) Nausea: Mild (1-3) Depression: Severe (7-10) Anxiety: Moderate (4-6) Dyspnea: Moderate (4-6) Anorexia: Severe (7-10), Weight loss Sleep: Variable sleep pattern Feelings of wellbeing/Perceived Quality of Life: Poor, Worsening Results - Lab Results Lab results reviewed: Yes Fish Bones: 08/08/18 05:58 08/08/18 05:58 Lab and Imaging Results: Lab Results x24hrs 08/08/18 08/08/18 08/08/18 Range/Units 15:12 15:12 05:58 WBC (4.8-10.8) x10^3/uL RBC (4.20-5.40) 10^6/uL Hgb (12.0-16.0) g/dL Hct (37.0-47.0) % MCV (81.0-99.0) fL MCH (27.0-31.0) pg MCHC (32.0-36.0) g/dL RDW (12.0-15.0) % Plt Count (130-450) 10^3/uL MPV (7.9-10.8) fL Neut # (Auto) (1.5-6.6) 10^3/uL Lymph # (Auto) (1.5-3.5) 10^3/uL [place] # (Auto) (0.0-1.0) 10^3/uL Eos # (Auto) (0.0-0.7) 10^3/uL Baso # (Auto) (0.0-0.1) 10^3/uL Absolute Nucleated RBC x10^3/uL Nucleated RBC % /100WBC Sodium (135-145) mmol/L Potassium (3.5-5.0) mmol/L Chloride (101-111) mmol/L Carbon Dioxide (21-32) mmol/L Anion Gap (6-13) BUN (6-20) mg/dL Creatinine (0.4-1.0) mg/dL Estimated GFR (MDRD) (>89) Glucose (70-100) mg/dL Calcium (8.5-10.3) mg/dL Magnesium 1.4 L (1.7-2.8) mg/dL Total Bilirubin (0.2-1.0) mg/dL AST (10-42) IU/L ALT (10-60) IU/L Alkaline Phosphatase (42-121) IU/L Ammonia 35.6 H (7-35) umol/L Total Protein (6.7-8.2) g/dL Albumin (3.2-5.5) g/dL Globulin (2.1-4.2) g/dL Albumin/Globulin Ratio (1.0-2.2) Folate 18.19 (5.90 - >24.8) ng/mL 08/08/18 08/08/18 Range/Units 05:58 05:58 WBC 10.9 H (4.8-10.8) x10^3/uL RBC 3.25 L (4.20-5.40) 10^6/uL Hgb 12.0 (12.0-16.0) g/dL Hct 34.9 L (37.0-47.0) % MCV 107.4 H (81.0-99.0) fL MCH 36.9 H (27.0-31.0) pg MCHC 34.4 (32.0-36.0) g/dL RDW 13.4 (12.0-15.0) % Plt Count 171 (130-450) 10^3/uL MPV 11.3 H (7.9-10.8) fL Neut # (Auto) 8.6 H (1.5-6.6) 10^3/uL Lymph # (Auto) 1.1 L (1.5-3.5) 10^3/uL [place] # (Auto) 1.1 H (0.0-1.0) 10^3/uL Eos # (Auto) 0.0 (0.0-0.7) 10^3/uL Baso # (Auto) 0.1 (0.0-0.1) 10^3/uL Absolute Nucleated RBC 0.00 x10^3/uL Nucleated RBC % 0.0 /100WBC Sodium 139 (135-145) mmol/L Potassium 3.1 L (3.5-5.0) mmol/L Chloride 104 (101-111) mmol/L Carbon Dioxide 24 (21-32) mmol/L Anion Gap 11.0 (6-13) BUN < 5 L (6-20) mg/dL Creatinine 0.3 L (0.4-1.0) mg/dL Estimated GFR (MDRD) 220 (>89) Glucose 94 (70-100) mg/dL Calcium 7.7 L (8.5-10.3) mg/dL Magnesium (1.7-2.8) mg/dL Total Bilirubin 2.4 H (0.2-1.0) mg/dL AST 62 H (10-42) IU/L ALT 28 (10-60) IU/L Alkaline Phosphatase 192 H (42-121) IU/L Ammonia (7-35) umol/L Total Protein 4.0 L (6.7-8.2) g/dL Albumin 2.2 L (3.2-5.5) g/dL Globulin 1.8 L (2.1-4.2) g/dL Albumin/Globulin Ratio 1.2 (1.0-2.2) Folate (5.90 - >24.8) ng/mL Impression and Recommendations - Palliative Care Impression: This is a 68-year-old woman with multiple comorbidities, adding to her ongoing functional decline including but not limited to severe COPD, pneumonia, tobacco abuse, GERD, anorexia, Sequela of her liver failure including ascites, poor nutritional status, metabolic abnormalities, and increased ammonia levels. Palliative care providing support regarding discussion around goals of care, and transition planning. Recommendations/Counseling Done: 1. Liver failure. Patient's liver enzymes continue to be compromised, she does have a increased ammonia level today. Counseling provided regarding the severit y of her illness, particularly if she restarts drinking. Patient is able to verbalize understanding, her current goal and plan is to not drink. She reports she has been sober before, has not found AA helpful, and has gone through withdrawals previously. Discussed the impact on her overall health, her experience of declining over the last several months, as well as her concerns regarding moving forward and returning home with her family. 2. Depression. Patient does admit to severe depression, reports was exacerbated with loss of job, discussed weighing benefits and burdens of possible antidepressant treatment, patient reports she is quite sensitive medications and does not want to trial any medication. We did discuss she would be excepting of counseling, follow-up with TRANSFUSION AIDE to provide list of resources. 3. Failure to thrive. This is multifactorial in origin including combination of sequela of her alcohol abuse, liver failure, decreased functional status, poor nutritional status, though no acute findings on her recent GI work-up. Patient is willing to go to outpatient therapy, does not want anyone coming to the home secondary to embarrassed to have someone see her there. 4. Advanced care planning. Discussed with patient how seriously ill she was, concern regarding her ongoing decline, patient's goals are to hope for the best, focus on quitting drinking and smoking, and see if she can recover some functional status. She does express concerns regarding her ability of family to support her and needed environment. We did discuss CODE STATUS, at this point in time expresses still wants to be full code, wants him to "try once". not available for current conversation, would like to revisit with family regarding goals of care if possible, but patient is most likely be discharged in the next day or 2. Time Spent: 45 minutes with greater than 50% of this done in counseling regarding patient's depression, perceptions regarding her current treatment, patient's goals, and anticipatory guidance. Coordination of care with hospitalist and TRANSFUSION AIDE.
[2018-08-08] MEDS ORDERED: MAGNESIUM SULFATE 2 GRAM 2 GM/50 ML BAG IV ONE (19:17)
[2018-08-09] MEDS: SODIUM CHLORIDE FLUSH 0.9% 10 ML SYRINGE IVP SCH ×3 (01:05→16:35)
[2018-08-09] MEDS: PIPERACILLIN/TAZOBACTAM 3.375 GM in SODIUM CHLORIDE 0.9% MINIBAG 100 ML IV SCH ×4 (01:55→21:01)
[2018-08-09 05:03] LABS: BASOPHILS # (AUTO) 0.2 10^3/uL (0.0-0.1); BASOPHILS % (AUTO) 1.2 %; EOSINOPHILS # (AUTO) 0.1 10^3/uL (0.0-0.7); EOSINOPHILS % (AUTO) 0.7 %; LYMPHOCYTES # (AUTO) 1.6 10^3/uL (1.5-3.5); LYMPHOCYTES % (AUTO) 11.7 %; MEAN CORPUSCULAR HEMOGLOBIN 36.5 pg (27.0-31.0); MEAN CORPUSCULAR HGB CONC 33.1 g/dL (32.0-36.0); MEAN CORPUSCULAR VOLUME 110.3 fL (81.0-99.0); MONOCYTES # (AUTO) 1.4 10^3/uL (0.0-1.0); MONOCYTES % (AUTO) 10.4 %; NEUTROPHILS # (AUTO) 10.4 10^3/uL (1.5-6.6); NEUTROPHILS % (AUTO) 75.6 %; PLT - PLATELET COUNT 149 10^3/uL (130-450); RED BLOOD COUNT 3.29 10^6/uL (4.20-5.40); RED CELL DISTRIBUTION WIDTH 13.4 % (12.0-15.0); WHITE BLOOD COUNT 13.8 x10^3/uL (4.8-10.8)
[2018-08-09 05:12] LABS: ALBUMIN 2.1 g/dL (3.2-5.5); ALBUMIN/GLOBULIN RATIO 1.1 (1.0-2.2); BILIRUBIN,TOTAL 2.2 mg/dL (0.2-1.0); CREATININE 0.3 mg/dL (0.4-1.0); TOTAL PROTEIN 4.1 g/dL (6.7-8.2)
[2018-08-09] MEDS ORDERED: MIN OIL/DIMETHICON/COCONUT OIL 92 GM TUBE TOP PRN (05:27)
[2018-08-09 06:01] LABS: PLATELET ESTIMATE, MANUAL NORMAL (130-450,000) (NORMAL); PLATELET MORPHOLOGY NORMAL APPEARANCE (NORMAL)
[2018-08-09] MEDS: MIDODRINE 2.5 MG TABLET PO SCH ×3 (06:42→21:02)
[2018-08-09] MEDS: FAMOTIDINE 20 MG TABLET PO SCH (08:53)
[2018-08-09] MEDS: PRENATAL VITAMIN TABLET PO SCH (08:53)
[2018-08-09] MEDS: POLYETHYLENE GLYCOL 3350 17 GM PACKET PO SCH (08:53)
[2018-08-09] MEDS: ASPIRIN CHEW 81 MG TABLET PO SCH (08:53)
[2018-08-09] MEDS: THIAMINE 100 MG TABLET PO SCH (08:53)
[2018-08-09] MEDS: CALCIUM CITRATE 250 MG TABLET PO SCH (08:54)
[2018-08-09] MEDS: MEGESTROL 400 MG/10 ML UDC PO SCH (08:54)
[2018-08-09] MEDS: guaiFENesin 600 MG TABLET PO SCH ×2 (08:54→21:02)
[2018-08-09] MEDS: SACCHAROMYCES BOULARDII 250 MG CAPSULE PO SCH ×2 (08:54→16:35)
[2018-08-09] MEDS: LACTOBACILLUS RHAMNOSUS GG CAPSULE PO SCH (08:59)
[2018-08-09] MEDS: LACTULOSE 10 GM /15 ML UDC PO SCH ×2 (08:59→21:02)
[2018-08-09] MEDS: HEPARIN 5,000 UNIT/ML VIAL SUBQ SCH ×2 (09:07→21:10)
[2018-08-09] MEDS: VANCOMYCIN INJ 1 GM in SODIUM CHLORIDE 0.9% 250 ML IV SCH ×2 (10:03→21:11)
--- NOTE | 2018-08-09 13:12 | XRAY Report ---
Reason: SOB Procedure Date: 08/09/2018 Accession Number: [id number] / [id number] Procedure: XR - Chest 1 View X-Ray CPT Code: 67220 FULL RESULT: EXAM: CHEST RADIOGRAPHY EXAM DATE: 08/09/2018 10:07 AM. CLINICAL HISTORY: SOB. COMPARISON: 08/07/2018 TECHNIQUE: 1 view. FINDINGS: Lungs/Pleura: Increasing right pleural effusion and basilar airspace disease with stable left pleural effusion and basilar airspace disease. Clear upper lungs. No pneumothorax. Mediastinum: Within exam limitations, the cardiomediastinal contour is normal. Other: Surgical clips left breast. IMPRESSION: Worsening chest x-ray with increasing right pleural effusion and associated airspace disease with stable left pleural effusion and airspace disease. Findings may be on the basis of congestive heart failure, fluid overload, or altered metabolic state. RADIA
[2018-08-09] MEDS ORDERED: ONDANSETRON 4 MG/2 ML VIAL IVP PRN (13:34)
--- NOTE | 2018-08-09 15:19 | PROVIDER PROGRESS NOTE ---
Subjective - Subjective Pt reports feeling: Improved Subjective: pt report she felt a little better and appetite is slight better than yesterday. She report she still has cough but less intensive than before. she report she still felt very weak. She denies fever, chill, chest pain. Current Medications - Current Medications Current Medications: Active Medications Acetaminophen (Tylenol) 650 mg PO Q4HR PRN PRN Reason: Pain 1 to 4 Last Admin: 08/08/18 23:41 Dose: 650 mg Albuterol () 2.5 mg INH RTQ4H PRN PRN Reason: Wheezing Last Admin: 08/05/18 07:39 Dose: 2.5 mg Albuterol/Ipratropium (Duoneb) 3 ml INH Q4HR PRN PRN Reason: Wheezing Last Admin: 08/08/18 23:49 Dose: 3 ml Aspirin ([place] Aspirin) 81 mg PO DAILY [facility] Last Admin: 08/09/18 08:53 Dose: 81 mg Calcium Citrate () 250 mg PO DAILY [facility] Last Admin: 08/09/18 08:54 Dose: 250 mg Famotidine (Pepcid) 20 mg PO DAILY [facility] Last Admin: 08/09/18 08:53 Dose: 20 mg Guaifenesin (Mucinex) 600 mg PO BID [facility] Last Admin: 08/09/18 08:54 Dose: 600 mg Heparin Sodium (Porcine) () 2,500 unit SUBQ BID [facility] Last Admin: 08/09/18 09:07 Dose: 2,500 unit Hydralazine HCl (Apresoline Inj) 10 mg IVP Q4HR PRN PRN Reason: SBP>160 Piperacillin Sod/Tazobactam (Sod 3.375 gm/ Sodium Chloride) 100 mls @ 200 mls/hr IV Q6H [facility] Last Infusion: 08/09/18 14:20 Dose: Infused Vancomycin HCl 1 gm/ Sodium (Chloride) 250 mls @ 167 mls/hr IV BID [facility] Last Infusion: 08/09/18 11:40 Dose: Infused Sodium Chloride (Normal Saline 0.9%) 500 mls @ 0 mls/hr IV Q24H PRN PRN Reason: TKO RATE Last Infusion: 08/09/18 03:30 Dose: 0 mls/hr Ibuprofen (Motrin) 400 mg PO Q6HR PRN PRN Reason: PAIN Last Admin: 08/09/18 02:47 Dose: 400 mg Lactobacillus Rhamnosus (Culturelle) 1 cap PO DAILY [facility] Last Admin: 08/09/18 08:59 Dose: 1 cap Lactulose (Enulose) 10 gm PO BID [facility] Last Admin: 08/09/18 08:59 Dose: 10 gm Lidocaine (Lidoderm Patch) 1 patch TOP DAILY PRN PRN Reason: PAIN Last Admin: 08/07/18 11:23 Dose: 1 patch Lorazepam (Ativan Inj (Vial)) 1 mg IVP Q30M PRN; Protocol PRN Reason: CIWA >8 Last Admin: 08/06/18 03:44 Dose: 1 mg Megestrol Acetate (Megace) 800 mg PO DAILY [facility] Last Admin: 08/09/18 08:54 Dose: 800 mg Midodrine () 10 mg PO TID [facility] Last Admin: 08/09/18 13:47 Dose: 10 mg Mineral Oil (Cavilon) 1 applic TOP PRN PRN PRN Reason: Skin Care Nitroglycerin (Nitrostat) 0.4 mg SL Q5MIN PRN PRN Reason: Chest Pain Ondansetron HCl (Zofran Inj) 4 mg IVP Q4HR PRN PRN Reason: Nausea / Vomiting Oxycodone HCl (Roxicodone) 5 mg PO Q4HR PRN PRN Reason: Pain 5 to 7 Last Admin: 08/07/18 21:29 Dose: 5 mg Polyethylene Glycol (Miralax) 17 gm PO DAILY [facility] Last Admin: 08/09/18 08:53 Dose: 17 gm Multivit/Folic Acid/Iron (Trinatal Rx 1) 1 tab PO DAILYWM [facility] Last Admin: 08/09/18 08:53 Dose: 1 tab Saccharomyces Boulardii (Florastor) 500 mg PO BIDWM [facility] Last Admin: 08/09/18 08:54 Dose: 500 mg Sodium Chloride (Normal Saline Flush 0.9%) 10 ml IVP PRN PRN PRN Reason: NEEDED PER PROVIDER ORDERS Last Admin: 08/07/18 22:57 Dose: 10 ml Sodium Chloride (Normal Saline Flush 0.9%) 10 ml IVP 0100,0900,1700 [facility] Last Admin: 08/09/18 08:59 Dose: 10 ml Temazepam (Restoril) 15 mg PO QPM PRN PRN Reason: Insomnia Last Admin: 08/09/18 00:21 Dose: 15 mg Thiamine HCl (Vitamin B-1) 100 mg PO DAILY [facility] Last Admin: 08/09/18 08:53 Dose: 100 mg Telmisartan/Hydrochlorothiazid [Telmisartan-Hctz 80-25 mg Tab] 1 tab PO DAILY 04/02/18 Albuterol Sulfate [Albuterol Sulfate Hfa] 2 puffs IH Q4H PRN 04/03/18 Objective - Vital Signs/Intake & Output Vital Signs: Vital Signs x48h Pulse Pulse Resp BP Pulse Ox 08/09/18 13:14 101 H 24 08/09/18 07:45 88 16 106/70 92 Intake & Output: Intake & Output 08/06/18 08/07/18 08/08/18 08/09/18 23:59 23:59 23:59 23:59 Intake Total 1740 1275 2471.333 1081 Output Total 450 1000 650 Balance 8701 915 5245.333 1081 - Objective General Appearance: positive: No acute distress, Alert. negative: Lethargic Eyes Bilateral: positive: Normal inspection, PERRL, No lid inflammation, Conjunctivae nml ENT: positive: ENT inspection nml, Pharynx nml, No signs of dehydration. negative: Purulent nasal drainage, Pharyngeal erythema, Oral lesions Neck: positive: Nml inspection, Thyroid nml, No JVD, Trachea midline. negative: Thyromegaly, Lymphadenopathy (R), Lymphadenopathy (L), Stiff neck, Swelling/bruising, Tracheal deviation Respiratory: positive: Chest non-tender, No respiratory distress. negative: Wheezes, Rales, Rhonchi Cardiovascular: positive: Regular rate & rhythm, No murmur, No gallop, Irregularly irregular. negative: Extrasystoles, Tachycardia, Bradycardia, JVD present, Systolic murmur, Diastolic murmur Peripheral Pulses: 2+ Radial (R), 2+ Radial (L), 2+ Dorsalis pedis (R), 2+ Dorsalis pedis (L) Abdomen: positive: Non-tender, No organomegaly, Nml bowel sounds, No distention. negative: Tenderness, Guarding, Rebound Back: positive: Nml inspection. negative: CVA tenderness (R), CVA tenderness (L) Skin: positive: Color nml, No rash, Warm, Dry. negative: Cyanosis, Diaphoresis, Pallor Extremities: positive: Non-tender, Full ROM, Nml appearance. negative: Calf tenderness, Joint swelling, Eleanor's sign/cords Neurologic/Psychiatric: positive: Oriented x3, Sensation nml, Mood/affect nml. negative: Weakness, Sensory loss, Facial droop, Slurred/abnml speech, Depressed mood/affect - Lab Results Fish Bones: 08/09/18 04:50 08/09/18 04:50 Other Labs: Lab Results x24hrs 08/09/18 08/09/18 08/09/18 Range/Units 08:27 08:27 04:50 WBC (4.8-10.8) x10^3/uL RBC (4.20-5.40) 10^6/uL Hgb (12.0-16.0) g/dL Hct (37.0-47.0) % MCV (81.0-99.0) fL MCH (27.0-31.0) pg MCHC (32.0-36.0) g/dL RDW (12.0-15.0) % Plt Count (130-450) 10^3/uL MPV (7.9-10.8) fL Neut # (Auto) (1.5-6.6) 10^3/uL Lymph # (Auto) (1.5-3.5) 10^3/uL [place] # (Auto) (0.0-1.0) 10^3/uL Eos # (Auto) (0.0-0.7) 10^3/uL Baso # (Auto) (0.0-0.1) 10^3/uL Absolute Nucleated RBC x10^3/uL Nucleated RBC % /100WBC Manual Slide Review Platelet Estimate (NORMAL) Platelet Morphology (NORMAL) RBC Morph Micro Appear (NORMAL) Sodium (135-145) mmol/L Potassium (3.5-5.0) mmol/L Chloride (101-111) mmol/L Carbon Dioxide (21-32) mmol/L Anion Gap (6-13) BUN (6-20) mg/dL Creatinine (0.4-1.0) mg/dL Estimated GFR (MDRD) (>89) Glucose (70-100) mg/dL Calcium (8.5-10.3) mg/dL Magnesium 2.0 (1.7-2.8) mg/dL Total Bilirubin (0.2-1.0) mg/dL AST (10-42) IU/L ALT (10-60) IU/L Alkaline Phosphatase (42-121) IU/L Ammonia 34.9 (7-35) umol/L Total Protein (6.7-8.2) g/dL Albumin (3.2-5.5) g/dL Globulin (2.1-4.2) g/dL Albumin/Globulin Ratio (1.0-2.2) Folate (5.90 - >24.8) ng/mL Last Dose Date 08/08/18 Last Dose Time 2203 Vancomycin Trough 18.0 (10.0-20.0) ug/mL 08/09/18 08/09/18 08/08/18 Range/Units 04:50 04:50 15:12 WBC 13.8 H (4.8-10.8) x10^3/uL RBC 3.29 L (4.20-5.40) 10^6/uL Hgb 12.0 (12.0-16.0) g/dL Hct 36.3 L (37.0-47.0) % MCV 110.3 H (81.0-99.0) fL MCH 36.5 H (27.0-31.0) pg MCHC 33.1 (32.0-36.0) g/dL RDW 13.4 (12.0-15.0) % Plt Count 149 (130-450) 10^3/uL MPV 11.0 H (7.9-10.8) fL Neut # (Auto) 10.4 H (1.5-6.6) 10^3/uL Lymph # (Auto) 1.6 (1.5-3.5) 10^3/uL [place] # (Auto) 1.4 H (0.0-1.0) 10^3/uL Eos # (Auto) 0.1 (0.0-0.7) 10^3/uL Baso # (Auto) 0.2 H (0.0-0.1) 10^3/uL Absolute Nucleated RBC 0.02 x10^3/uL Nucleated RBC % 0.1 /100WBC Manual Slide Review Indicated Platelet Estimate NORMAL (130-450,000) (NORMAL) Platelet Morphology NORMAL APPEARANCE (NORMAL) RBC Morph Micro Appear 1+ HYPOCHROMASIA (NORMAL) Sodium 141 (135-145) mmol/L Potassium 3.8 (3.5-5.0) mmol/L Chloride 108 (101-111) mmol/L Carbon Dioxide 22 (21-32) mmol/L Anion Gap 11.0 (6-13) BUN 5 L (6-20) mg/dL Creatinine 0.3 L (0.4-1.0) mg/dL Estimated GFR (MDRD) 220 (>89) Glucose 105 H (70-100) mg/dL Calcium 8.0 L (8.5-10.3) mg/dL Magnesium (1.7-2.8) mg/dL Total Bilirubin 2.2 H (0.2-1.0) mg/dL AST 63 H (10-42) IU/L ALT 30 (10-60) IU/L Alkaline Phosphatase 195 H (42-121) IU/L Ammonia (7-35) umol/L Total Protein 4.1 L (6.7-8.2) g/dL Albumin 2.1 L (3.2-5.5) g/dL Globulin 2.0 L (2.1-4.2) g/dL Albumin/Globulin Ratio 1.1 (1.0-2.2) Folate 18.19 (5.90 - >24.8) ng/mL Last Dose Date Last Dose Time Vancomycin Trough (10.0-20.0) ug/mL 08/08/18 Range/Units 15:12 WBC (4.8-10.8) x10^3/uL RBC (4.20-5.40) 10^6/uL Hgb (12.0-16.0) g/dL Hct (37.0-47.0) % MCV (81.0-99.0) fL MCH (27.0-31.0) pg MCHC (32.0-36.0) g/dL RDW (12.0-15.0) % Plt Count (130-450) 10^3/uL MPV (7.9-10.8) fL Neut # (Auto) (1.5-6.6) 10^3/uL Lymph # (Auto) (1.5-3.5) 10^3/uL [place] # (Auto) (0.0-1.0) 10^3/uL Eos # (Auto) (0.0-0.7) 10^3/uL Baso # (Auto) (0.0-0.1) 10^3/uL Absolute Nucleated RBC x10^3/uL Nucleated RBC % /100WBC Manual Slide Review Platelet Estimate (NORMAL) Platelet Morphology (NORMAL) RBC Morph Micro Appear (NORMAL) Sodium (135-145) mmol/L Potassium (3.5-5.0) mmol/L Chloride (101-111) mmol/L Carbon Dioxide (21-32) mmol/L Anion Gap (6-13) BUN (6-20) mg/dL Creatinine (0.4-1.0) mg/dL Estimated GFR (MDRD) (>89) Glucose (70-100) mg/dL Calcium (8.5-10.3) mg/dL Magnesium 1.4 L (1.7-2.8) mg/dL Total Bilirubin (0.2-1.0) mg/dL AST (10-42) IU/L ALT (10-60) IU/L Alkaline Phosphatase (42-121) IU/L Ammonia (7-35) umol/L Total Protein (6.7-8.2) g/dL Albumin (3.2-5.5) g/dL Globulin (2.1-4.2) g/dL Albumin/Globulin Ratio (1.0-2.2) Folate (5.90 - >24.8) ng/mL Last Dose Date Last Dose Time Vancomycin Trough (10.0-20.0) ug/mL ABX Reporting Has patient been on IV antibiotics over the past 48 hours?: Yes Sepsis Event Note (H) - Evaluation Current Stage of Sepsis: Ruled out Possible source of Sepsis: positive: Pulmonary - Sepsis Criteria Sepsis Criteria: Recorded Heart Rate greater than 90 bpm Assessment/Plan - Problem List (1) Chest pain Impression: 08/09 no chest pain reported 08/08 pt denies chest pain. 08/07 no chest pain, stable 08/06 pt denies chest pain today serial troponin were negative. EKG was ST. pt report CP is on and off, like atypical chest pain ECHO reveals unremarkable. continue nitro PRN, ASA 2. alcoholism 08/08 discussed with pt, she is willing to give up drinking at this moment 08/07 she still drink alcohol just before the admission, per pt report continue CIWA, continue folic acid and B1 08/06 pt report she still drink alcohol just before admission continue folic acid and B1 continue neuro check [facility] alcohol abuse with liver failure d/c banana bag for precaution of fluid overload for her ascites, instead given pt vitamin and B1 continue CIWA. pt was still positive for alcohol at the admission 3. Hyponatremia, hypervolemia resolved 4. hypotension 08/09 remain stable continue midodrine continue vital monitor check cortosol level at morning. 08/08 remain stable continue midodrine continue vital monitor 08/07 it better, now her SBP is 123 PRN Midodrine tele and vital monitor encourage pt eat 08/06 bolus of 250 ml of NS schedule Midodrinine tele and vital monitor encourage pt eat pt had elevated BP with ST, add metoprolol. but now pt present hypotension stop all BP meds, continue vital monitor Q4H bolus of NS and precaution of fluid overload midodrine tid 5. 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 continue monitor Large ascites seen on CT with fatty liver, hole diuretics for hypotensive, med mgmt, pt has no SOB, and pt's abdomen is not extensive distention. pt do not need agency paracentesis now 6. ETOH induced hepatitis monitor lab, advise pt stop drinking. continue Supportive care 7. Chronic BLLE edema sec to liver disease 08/06 Etoh hepatitis, will hold lasix now for hypotension 8. hypoalbuminemia 08/08 pt had albumin IV, and albumin level increased after infusion continue lab monitor likely from etoh related hepatic failure and malnutrional with decrease oncotic pressure contributing to anasarca and generalized edema. pt may need IV of albumin 9. Macrocytosis H/H stable and no mention of UGIB/LGIB. stable b12/FA levels. 10. FTT wit anorexia and weight loss, loss of appetite 08/09 pt report her appetite is slight better today, continue support continue Megace 08/08 slight increase of oral imput, still poor appetite consult with unarmed security officer continue Megace 08/07 pt still has poor appetite continue Megace encourage pt eat 08/06 BMI 19.2, etoh related nutrional deficiencies likely, will need nutritional consult here, treat underlying SBP to improve pain and increase PO intake. encourage pt eat add megace 11. current tobacco abuse disorder PRN for nicotine replacement 12. pneumonia 08/09 today pt's WBC increased to 13, and still present cough and pulmonary congestion. sputum culture is pending continue Zosyn and Vancomycin supplement of O2 as needed. 08/08 WBC is 10.9 today, pt present cough with pulmonary congestion continue IV of antibiotics add muscinex, add lower dosage of Lasix for pleural effusion, since pt has normative BP and she can tolerate 08/07 new CXR reveals worsen at left side and small pleural effusion. pt's WBC is down to 11.7 continue Zosyn and add Vancomycin, since pt is HCAP once low dosage of Lasix, pt has hypotensive, now she is better continue breath treatment, supplement of O2 as needed 08/06 pt's cough, pulmonary congestion is significant reduced. 96% sats on room air, significantly improved continue Zosyn continue RT treatment as needed pt present cough, congestion, elevated WBC, but without fever, chill order CXR, which reveals possible aspiration and left side pneumonia treat with Zosyn 13, profound weakness 08/09 combination of liver failure and pneumonia, and loss of appetite, pt present profound weakness treat and management underline medical problems, continue PT/OT 14. advanced care plan 08/09 dedrick Nova followup pt, followup her recommendations. 08/07 dedrick Nova saw pt and will followup on tomorrow as well, we will followup the consultation. discussed with pt about her code status, palliative care and hospice care. pt agree to have palliative care consult on tomorrow. Qualifiers: Chest pain type: unspecified Qualified Code(s): R07.9 - Chest pain, unspecified
[2018-08-09] MEDS: SODIUM CHLORIDE FLUSH 0.9% 10 ML SYRINGE IVP PRN (21:02)
[2018-08-09] MEDS: ALBUTEROL NEB 2.5 MG/3 ML INH PRN (23:47)
[2018-08-10] MEDS: oxyCODONE 5 MG TABLET PO PRN (00:11)
[2018-08-10] MEDS: PIPERACILLIN/TAZOBACTAM 3.375 GM in SODIUM CHLORIDE 0.9% MINIBAG 100 ML IV SCH ×4 (02:11→20:05)
[2018-08-10] MEDS: SODIUM CHLORIDE FLUSH 0.9% 10 ML SYRINGE IVP SCH ×3 (02:11→16:36)
[2018-08-10] MEDS: SODIUM CHLORIDE 0.9% 500 ML IV PRN (02:13)
[2018-08-10 05:00] LABS: EOSINOPHILS % (AUTO) 0.3 %; HGB - HEMOGLOBIN 12.2 g/dL (12.0-16.0); LYMPHOCYTES % (AUTO) 10.5 %; MEAN CORPUSCULAR HEMOGLOBIN 36.3 pg (27.0-31.0); MEAN CORPUSCULAR HGB CONC 33.2 g/dL (32.0-36.0); MEAN CORPUSCULAR VOLUME 109.5 fL (81.0-99.0); MEAN PLATELET VOLUME 11.8 fL (7.9-10.8); MONOCYTES % (AUTO) 12.7 %; NEUTROPHILS % (AUTO) 74.5 %; PLT - PLATELET COUNT 143 10^3/uL (130-450); RED BLOOD COUNT 3.36 10^6/uL (4.20-5.40); RED CELL DISTRIBUTION WIDTH 13.7 % (12.0-15.0); WHITE BLOOD COUNT 15.6 x10^3/uL (4.8-10.8)
[2018-08-10 05:08] LABS: ABNORMAL LYMPHS % (MANUAL) 0 %
[2018-08-10 05:10] LABS: ALBUMIN 1.9 g/dL (3.2-5.5); CALCIUM 7.8 mg/dL (8.5-10.3); CREATININE 0.7 mg/dL (0.4-1.0); TOTAL PROTEIN 3.9 g/dL (6.7-8.2)
[2018-08-10 05:35] LABS: BAND NEUTROPHILS % (MANUAL) 5 %; DIFFERENTIAL COMMENT MANUAL DIFFERENTIAL; LYMPHOCYTES # (MANUAL) 0.6 10^3/uL (1.5-3.5); LYMPHOCYTES % (MANUAL) 4 %; MONOCYTES # (MANUAL) 1.2 10^3/uL (0.0-1.0); PLATELET ESTIMATE, MANUAL NORMAL (130-450,000) (NORMAL); RBC MORPHOLOGY (MULTIPLE) NORMAL APPEARANCE (NORMAL)
[2018-08-10] MEDS: MIDODRINE 2.5 MG TABLET PO SCH ×3 (06:10→21:36)
[2018-08-10] MEDS: ALBUTEROL NEB 2.5 MG/3 ML INH PRN ×2 (07:54→23:29)
[2018-08-10] MEDS: HEPARIN 5,000 UNIT/ML VIAL SUBQ SCH ×2 (08:22→20:57)
[2018-08-10] MEDS: POLYETHYLENE GLYCOL 3350 17 GM PACKET PO SCH (08:22)
[2018-08-10] MEDS: SACCHAROMYCES BOULARDII 250 MG CAPSULE PO SCH ×2 (08:23→16:34)
[2018-08-10] MEDS: CALCIUM CITRATE 250 MG TABLET PO SCH (08:23)
[2018-08-10] MEDS: PRENATAL VITAMIN TABLET PO SCH (08:23)
[2018-08-10] MEDS: guaiFENesin 600 MG TABLET PO SCH ×2 (08:24→20:52)
[2018-08-10] MEDS: ASPIRIN CHEW 81 MG TABLET PO SCH (08:24)
[2018-08-10] MEDS: THIAMINE 100 MG TABLET PO SCH (08:24)
[2018-08-10] MEDS: FAMOTIDINE 20 MG TABLET PO SCH (08:24)
[2018-08-10] MEDS: LACTULOSE 10 GM /15 ML UDC PO SCH ×2 (08:25→21:36)
[2018-08-10] MEDS: MEGESTROL 400 MG/10 ML UDC PO SCH (08:25)
[2018-08-10] MEDS: LACTOBACILLUS RHAMNOSUS GG CAPSULE PO SCH (08:27)
[2018-08-10] MEDS: VANCOMYCIN INJ 1 GM in SODIUM CHLORIDE 0.9% 250 ML IV SCH ×2 (09:28→20:52)
--- NOTE | 2018-08-10 11:03 | PROVIDER PROGRESS NOTE ---
Subjective - Prog Note Date Prog Note Date: 08/10/18 Prog Note Time: 11:01 - Subjective Pt reports feeling: No change Subjective: Raquel is sleepy today and has no complaints, she is agreeable to staying one more night. Current Medications - Current Medications Current Medications: Active Medications: Acetaminophen (Tylenol) 650 mg PO Q4HR PRN Albuterol 2.5 mg INH RTQ4H PRN Albuterol/Ipratropium (Duoneb) 3 ml INH Q4HR PRN Aspirin ([place] Aspirin) 81 mg PO DAILY [facility] Calcium Citrate 250 mg PO DAILY [facility] Famotidine (Pepcid) 20 mg PO DAILY [facility] Guaifenesin (Mucinex) 600 mg PO BID [facility] Heparin Sodium (Porcine) 2,500 unit SUBQ BID [facility] Hydralazine HCl (Apresoline Inj) 10 mg IVP Q4HR PRN Piperacillin Sod/Tazobactam (Sod 3.375 gm/ Sodium Chloride) 100 mls @ 200 mls/hr IV Q6H [facility] Vancomycin HCl 1 gm/ Sodium (Chloride) 250 mls @ 167 mls/hr IV BID [facility] Ibuprofen (Motrin) 400 mg PO Q6HR PRN Lactobacillus Rhamnosus (Culturelle) 1 cap PO DAILY [facility] Lactulose (Enulose) 10 gm PO TID [facility] Lidocaine (Lidoderm Patch) 1 patch TOP DAILY PRN Lorazepam (Ativan Inj (Vial) 1 mg IVP Q30M PRN; Protocol Megestrol Acetate (Megace) 800 mg PO DAILY [facility] Mineral Oil (Cavilon) 1 applic TOP PRN PRN Nitroglycerin (Nitrostat) 0.4 mg SL Q5MIN PRN Ondansetron HCl (Zofran Inj) 4 mg IVP Q4HR PRN Oxycodone HCl (Roxicodone) 5 mg PO Q4HR PRN Polyethylene Glycol (Miralax) 17 gm PO DAILY [facility] Multivit/Folic Acid/Iron (Trinatal Rx 1) 1 tab PO DAILYWM [facility] Propranolol HCl (Inderal) 20 mg PO BID [facility] Saccharomyces Boulardii (Florastor) 500 mg PO BIDWM [facility] Temazepam (Restoril) 15 mg PO QPM PRN Thiamine HCl (Vitamin B-1) 100 mg PO DAILY [facility] HOME meds: Telmisartan/Hydrochlorothiazid [Telmisartan-Hctz 80-25 mg Tab] 1 tab PO DAILY 04/02/18 Albuterol Sulfate [Albuterol Sulfate Hfa] 2 puffs IH Q4H PRN 04/03/18 Objective - Vital Signs/Intake & Output Reviewed Vital Signs: Yes Vital Signs: Vital Signs x48h Temp Pulse Pulse Resp BP Pulse Ox 08/10/18 08:23 76 18 08/10/18 07:20 36.4 C L 105 H 20 125/83 H 94 08/10/18 06:06 36.6 C 98 121/72 92 Intake & Output: Intake & Output 08/07/18 08/08/18 08/09/18 08/10/18 23:59 23:59 23:59 23:59 Intake Total 1275 2471.333 1881.000 978.333 Output Total 1000 650 301 Balance 275 8157.454 6763.000 677.333 - Objective General Appearance: positive: Mild distress, Lethargic Eyes Bilateral: positive: PERRL Eyes: OU Conjunctivae pale, OU Scleral icterus ENT: positive: Pharynx nml, Dry mucous membranes Neck: positive: No JVD, Trachea midline Respiratory: positive: Rhonchi Cardiovascular: positive: Tachycardia, Systolic murmur Peripheral Pulses: 1+ Radial (R), 1+ Radial (L) Abdomen: positive: Tenderness, Guarding, Hepatomegaly, Abnml bowel sounds, Other (rounded, soft) Back: positive: CVA tenderness (R) Skin: positive: No rash, Warm, Dry, Pallor, Other (bronze, slight jaundice) Extremities: positive: Non-tender, Pedal edema (pitting, mild to BLEs, abdominal edema), Joint swelling, Other (atrophy noted in joints and muscle tone) Neurologic/Psychiatric: positive: Disoriented to time, Weakness, Sensory loss, Slurred/abnml speech (sluggish), Depressed mood/affect Reflexes: Bicep (R): 1+, Bicep (L): 1+ - Lab Results Fish Bones: 08/11/18 04:45 08/11/18 04:45 Other Labs: Lab Results x24hrs 08/10/18 08/10/18 08/10/18 Range/Units 04:35 04:35 04:35 WBC 15.6 H (4.8-10.8) x10^3/uL RBC 3.36 L (4.20-5.40) 10^6/uL Hgb 12.2 (12.0-16.0) g/dL Hct 36.8 L (37.0-47.0) % MCV 109.5 H (81.0-99.0) fL MCH 36.3 H (27.0-31.0) pg MCHC 33.2 (32.0-36.0) g/dL RDW 13.7 (12.0-15.0) % Plt Count 143 (130-450) 10^3/uL MPV 11.8 H (7.9-10.8) fL Neut # (Auto) Not Reportable Lymph # (Auto) Not Reportable [place] # (Auto) Not Reportable Eos # (Auto) Not Reportable Baso # (Auto) Not Reportable Absolute Nucleated RBC Not Reportable Total Counted 100 Band Neuts % (Manual) 5 (0 - 10) % Abnorm Lymph % (Manual) 0 % Nucleated RBC % Not Reportable Neutrophils # (Manual) 13.7 H (1.5-6.6) 10^3/uL Lymphocytes # (Manual) 0.6 L (1.5-3.5) 10^3/uL Monocytes # (Manual) 1.2 H (0.0-1.0) 10^3/uL Eosinophils # (Manual) 0.0 (0-0.7) 10^3/uL Basophils # (Manual) 0.0 (0-0.1) 10^3/uL Differential Comment MANUAL DIFFERENTIAL Platelet Estimate NORMAL (130-450,000) (NORMAL) RBC Morph Micro Appear NORMAL APPEARANCE (NORMAL) Sodium 141 (135-145) mmol/L Potassium 3.4 L (3.5-5.0) mmol/L Chloride 109 (101-111) mmol/L Carbon Dioxide 22 (21-32) mmol/L Anion Gap 10.0 (6-13) BUN 8 (6-20) mg/dL Creatinine 0.7 (0.4-1.0) mg/dL Estimated GFR (MDRD) 83 L (>89) Glucose 95 (70-100) mg/dL Calcium 7.8 L (8.5-10.3) mg/dL Total Bilirubin 2.0 H (0.2-1.0) mg/dL AST 61 H (10-42) IU/L ALT 28 (10-60) IU/L Alkaline Phosphatase 204 H (42-121) IU/L Ammonia (7-35) umol/L Total Protein 3.9 L (6.7-8.2) g/dL Albumin 1.9 L (3.2-5.5) g/dL Globulin 2.0 L (2.1-4.2) g/dL Albumin/Globulin Ratio 1.0 (1.0-2.2) Cortisol AM Sample 11.8 ug/dL 08/10/18 Range/Units 04:35 WBC (4.8-10.8) x10^3/uL RBC (4.20-5.40) 10^6/uL Hgb (12.0-16.0) g/dL Hct (37.0-47.0) % MCV (81.0-99.0) fL MCH (27.0-31.0) pg MCHC (32.0-36.0) g/dL RDW (12.0-15.0) % Plt Count (130-450) 10^3/uL MPV (7.9-10.8) fL Neut # (Auto) Lymph # (Auto) [place] # (Auto) Eos # (Auto) Baso # (Auto) Absolute Nucleated RBC Total Counted Band Neuts % (Manual) (0 - 10) % Abnorm Lymph % (Manual) % Nucleated RBC % Neutrophils # (Manual) (1.5-6.6) 10^3/uL Lymphocytes # (Manual) (1.5-3.5) 10^3/uL Monocytes # (Manual) (0.0-1.0) 10^3/uL Eosinophils # (Manual) (0-0.7) 10^3/uL Basophils # (Manual) (0-0.1) 10^3/uL Differential Comment Platelet Estimate (NORMAL) RBC Morph Micro Appear (NORMAL) Sodium (135-145) mmol/L Potassium (3.5-5.0) mmol/L Chloride (101-111) mmol/L Carbon Dioxide (21-32) mmol/L Anion Gap (6-13) BUN (6-20) mg/dL Creatinine (0.4-1.0) mg/dL Estimated GFR (MDRD) (>89) Glucose (70-100) mg/dL Calcium (8.5-10.3) mg/dL Total Bilirubin (0.2-1.0) mg/dL AST (10-42) IU/L ALT (10-60) IU/L Alkaline Phosphatase (42-121) IU/L Ammonia 45.4 H (7-35) umol/L Total Protein (6.7-8.2) g/dL Albumin (3.2-5.5) g/dL Globulin (2.1-4.2) g/dL Albumin/Globulin Ratio (1.0-2.2) Cortisol AM Sample ug/dL ABX Reporting Has patient been on IV antibiotics over the past 48 hours?: Yes Sepsis Event Note (H) - Evaluation Current Stage of Sepsis: Resolved - Sepsis Criteria Sepsis Criteria: Hepatic: Bilirubin greater than 2mg/dl Assessment/Plan - Problem List (1) Pneumonia Impression: - WBC count up and down from 10.9 to 15.6, and still with a cough/pulmonary congestion - sputum culture is pending - continued on Zosyn and Vancomycin - supplement of O2 as needed (2) Alcoholic cirrhosis Impression: - Patient admits to several years of drinking, but notes that since this admission her daughter has cleaned out the house for any alcohol - Consequently has had evidence of cirrhosis on imaging and as a consequence her ammonia level has required lactulose Plan: Continue lactulose at TID dosing (3) Chest pain Impression: - This was a primary complaint upon admission that has been improving each day - Contributing factors of pneumonia, GERD, and increased abdominal girth - serial troponins were negative - EKG was without ST changes - Patient admits to intermittent episodes - ECHO notes no wall motion abnormalities Plan: Continue nitro as needed, daily ASA Qualifiers: Chest pain type: unspecified Qualified Code(s): R07.9 - Chest pain, unspecified (4) Alcohol abuse Impression: - long-term alcohol abuse with liver failure - Status post banana bag, but discontinued early for fluid overload based on increased ascites - Continued on vitamin and B1 - Status post CIWA, positive for alcohol on admission Plan: Continue to encourage cessation, treat acute illness (5) Hypertension Impression: - Initially, had hypotension, now improved - No prescribed medications prior to this hospital stay Plan: Continue propranolol, start spironolactone Qualifiers: Hypertension type: essential hypertension Qualified Code(s): I10 - Essential (primary) hypertension (6) Tobacco use disorder, continuous Impression: - Patient admits to life-long smoking - Sometimes has been refusing nicotine patches Plan: Continue to offer nicotine patches, encourage cessation, recommend pulmonary rehab upon discharge
[2018-08-10] MEDS: ACETAMINOPHEN 325 MG TABLET PO PRN ×2 (12:46→16:35)
[2018-08-10] MEDS: SODIUM CHLORIDE FLUSH 0.9% 10 ML SYRINGE IVP PRN ×2 (14:14→20:05)
[2018-08-10] MEDS: PROPRANOLOL 10 MG TABLET PO SCH (23:41)
[2018-08-11] MEDS: PIPERACILLIN/TAZOBACTAM 3.375 GM in SODIUM CHLORIDE 0.9% MINIBAG 100 ML IV SCH ×2 (01:43→08:09)
[2018-08-11] MEDS: oxyCODONE 5 MG TABLET PO PRN (01:51)
[2018-08-11] MEDS: SODIUM CHLORIDE FLUSH 0.9% 10 ML SYRINGE IVP SCH ×2 (02:40→08:11)
[2018-08-11 04:57] LABS: BASOPHILS % (AUTO) 0.9 %; EOSINOPHILS % (AUTO) 0.3 %; HGB - HEMOGLOBIN 12.7 g/dL (12.0-16.0); LYMPHOCYTES % (AUTO) 13.6 %; MEAN CORPUSCULAR HEMOGLOBIN 36.7 pg (27.0-31.0); MEAN CORPUSCULAR HGB CONC 34.8 g/dL (32.0-36.0); MEAN CORPUSCULAR VOLUME 105.5 fL (81.0-99.0); MEAN PLATELET VOLUME 11.6 fL (7.9-10.8); MONOCYTES % (AUTO) 11.7 %; NEUTROPHILS % (AUTO) 72.6 %; PLT - PLATELET COUNT 160 10^3/uL (130-450); RED BLOOD COUNT 3.46 10^6/uL (4.20-5.40); RED CELL DISTRIBUTION WIDTH 13.6 % (12.0-15.0); WHITE BLOOD COUNT 14.6 x10^3/uL (4.8-10.8)
[2018-08-11 05:01] LABS: ABNORMAL LYMPHS % (MANUAL) 0 %
[2018-08-11 05:10] LABS: ALBUMIN 1.8 g/dL (3.2-5.5); ALBUMIN/GLOBULIN RATIO 0.8 (1.0-2.2); BILIRUBIN,TOTAL 1.7 mg/dL (0.2-1.0); CALCIUM 8.1 mg/dL (8.5-10.3); CREATININE 0.6 mg/dL (0.4-1.0); TOTAL PROTEIN 4.1 g/dL (6.7-8.2)
[2018-08-11 05:16] LABS: BAND NEUTROPHILS % (MANUAL) 6 %; DIFFERENTIAL COMMENT MANUAL DIFFERENTIAL; LYMPHOCYTES # (MANUAL) 2.8 10^3/uL (1.5-3.5); LYMPHOCYTES % (MANUAL) 19 %; PLATELET ESTIMATE, MANUAL NORMAL (130-450,000) (NORMAL); RBC MORPHOLOGY (MULTIPLE) 1+ MACROCYTOSIS (NORMAL)
[2018-08-11] MEDS: MIDODRINE 2.5 MG TABLET PO SCH (05:49)
[2018-08-11] MEDS: LACTULOSE 10 GM /15 ML UDC PO SCH (05:50)
[2018-08-11] MEDS: IPRATROPIUM/ALBUTEROL 3 ML NEB INH PRN (07:23)
[2018-08-11] MEDS: PRENATAL VITAMIN TABLET PO SCH (08:11)
[2018-08-11] MEDS: SACCHAROMYCES BOULARDII 250 MG CAPSULE PO SCH (08:11)
[2018-08-11] MEDS ORDERED: guaiFENesin 600 MG TABLET PO SCH (09:00)
[2018-08-11] MEDS: POLYETHYLENE GLYCOL 3350 17 GM PACKET PO SCH (09:39)
[2018-08-11] MEDS ORDERED: POTASSIUM CHLORIDE 20 MEQ TABLET PO ONE (10:13)
[2018-08-11] MEDS: MEGESTROL 400 MG/10 ML UDC PO SCH (10:48)
[2018-08-11] MEDS: LACTOBACILLUS RHAMNOSUS GG CAPSULE PO SCH (10:48)
[2018-08-11] MEDS: FAMOTIDINE 20 MG TABLET PO SCH (10:48)
[2018-08-11] MEDS: THIAMINE 100 MG TABLET PO SCH (10:48)
[2018-08-11] MEDS: VANCOMYCIN INJ 1 GM in SODIUM CHLORIDE 0.9% 250 ML IV SCH (10:48)
[2018-08-11] MEDS: PROPRANOLOL 10 MG TABLET PO SCH (10:49)
[2018-08-11] MEDS: ASPIRIN CHEW 81 MG TABLET PO SCH (10:50)
[2018-08-11] MEDS: HEPARIN 5,000 UNIT/ML VIAL SUBQ SCH (10:50)
[2018-08-11] MEDS: CALCIUM CITRATE 250 MG TABLET PO SCH (10:50)
[2018-08-11] MEDS: guaiFENesin 600 MG TABLET PO SCH (10:50)
[2018-08-11 11:00] VITALS: BP 136/83
--- NOTE | 2018-08-11 12:00 | Discharge Plan ---
Discharge Plan Problem Reviewed?: Yes Disposition: Home, Self Care Condition: Stable Prescriptions: Albuterol Sulfate [Albuterol Sulfate Hfa] 2 puffs IH Q4H PRN #1 hfa.aer.ad PRN Reason: Wheezing Fluticasone/Salmeterol [Advair 250-50 Diskus] 1 each IH BID #1 blst.w.dev guaiFENesin [Mucinex] 600 mg PO BID #60 tablet L. Acidophilus/L.bulgaricus [Lactobacillus Tablet] 1 each PO BID #60 tablet Lactulose [Constulose] 10 gm PO TID #90 solution levoFLOXacin [Levofloxacin] 500 mg PO DAILY #5 tablet Magnesium Oxide [Mag Ox] 400 mg PO DAILY #30 tablet Montelukast [Singulair] 10 mg PO QPM #30 tablet Nicotine 7 mg Patch [Nicoderm] 1 each TOP Q24H #14 patch Propranolol [Inderal] 5 mg PO BID #15 tablet Spironolactone 25 mg PO DAILY #30 tablet Tiotropium [place] [Spiriva] 1 puffs INH DAILY 30 Days #30 each Wheat Dextrin [Benefiber] 1 each PO DAILY #30 powd.pack Diet: Low Sodium (less than 2GM per day) Activity Restrictions: Activity as Tolerated Shower Restrictions: No Weight Bearing: Full Weight Health Concerns: Alcohol use Pneumonia Medical compliance Plan of Treatment: Please take the antibiotic to clear up your pneumonia for the next 5 days. Please continue taking lactulose 3 times per day to keep your blood ammonia level down (prevent confusion). Please DO not take your other blood pressure pill. Please start taking Propranolol (improves blood flow to the liver from your heart), and reduces blood pressure. Please take a medication called Spironolactone (reduces belly swelling, and maintains heart function) for blood pressure and swelling. Please try the nicotine patches. I have sent 2 buttermaker continuous churn inhalers to the pharmacy and a nightly pill called Singular to treat your COPD and help prevent pneumonia. Physical therapy recommends outpatient services. I have ordered this, but your regular provider will have to follow you on this. Please visit your primary care provider within one week. Care Goals: Stay out of the hospital Stop drinking and smoking Take all medications as prescribed Follow-Up Care: Outpatient Rehab - PT No Smoking: If you smoke, Please STOP! Call for help.
--- NOTE | 2018-08-11 19:07 | DISCHARGE SUMMARY ---
Discharge Summary Admit Date: 08/04/18 Discharge Date: 08/11/18 Discharging Provider: COLLIN Teixeira Primary Care Provider: [place] Nova Code Status: Attempt Resuscitation Condition at Discharge: Stable Discharge Disposition: 01 Home, Self Care - DIAGNOSES Admission Diagnoses: SBP (spontaneous bacterial peritonitis) Alcohol dependence syndrome Alcohol withdrawal Hyponatremia Alcoholic hepatitis Edema extremities Tobacco dependence FTT (failure to thrive) in adult Anorexia Anasarca Discharge Diagnoses with Status of Each Condition: Pneumonia- New on this admission, continue antibiotics at home Alcoholic cirrhosis- chronic, continue lactulose TID to keep ammonia levels low Chest pain- resolved, chronic, stable Hypertension- chronic, stable Tobacco dependence- chronic, stable, given additional nicotine patches upon discharge SBP (spontaneous bacterial peritonitis)- ruled out, stable Alcohol dependence syndrome- chronic, encouraged cessation Alcohol withdrawal- resolved Hyponatremia- resolved Alcoholic hepatitis- chronic, stable, continue lactulose, encourage cessation Edema extremities- chronic, continue spironolactone at home Tobacco dependence- chronic, stable, unsure is she is ready to stop, encouraged cessation, refused pulmonary rehab FTT (failure to thrive) in adult- chronic, stable, encouraged ETOH/tobacco cess ation Anorexia- chronic, encouraged ETOH cessation, still with a poor appetite Anasarca- chronic, continue lactulose and spironolactone at home - HPI History of Present Illness: HPI per Dr. 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 Also has abdominal pain, Subjective chills along with weakness with failure to thrive loss of appetite 10 pound weight loss for the past 2 to 3 weeks. Admits to smoking 1ppd and drinking etoh, here was found to have a ETOH level 54.8, Na 130, with transaminitis, low albumin, clinically with anasarca and 3+pitting edema to BLLE w/o cellulitis, afebrile with tachycardia, admits that she has withdrawals when she stops drinking. CTA showed no PE, but large amount of ascites, emphysema and a fatty liver. - HOSPITAL COURSE Hospital Course: Pneumonia- WBC count up and down from 10.9 to 15.6, and still with a cough/pulmonary congestion, continued on Zosyn and Vancomycin, that was changed to PO antibiotics to be continued at home Alcoholic cirrhosis- Patient admits to several years of drinking, but notes that since this admission her daughter has cleaned out the house for any alcohol - Consequently has had evidence of cirrhosis on imaging and as a consequence her ammonia level has required lactulose. Continued on lactulose at TID dosing Chest pain- This was a primary complaint upon admission that has been improving each day - Contributing factors of pneumonia, GERD, and increased abdominal girth - serial troponins were negative - EKG was without ST changes - Patient admits to intermittent episodes - ECHO notes no wall motion abnormalities, continued on nitro as needed, daily ASA Alcohol abuse- penitentiary alcohol abuse with liver failure - Status post banana bag, but discontinued early for fluid overload based on increased ascites - Continued on vitamin and B1 - Status post CIWA, positive for alcohol on admission, continued to encourage cessation, treated for acute illness Hypertension- Initially, had hypotension, now improved - No prescribed medications prior to this hospital stay, continued on propranolol, and started on spironolactone Tobacco use disorder, continuous- Patient admits to life-long smoking and was continued on nicotine patches, encouraged cessation, recommended pulmonary rehab upon discharge, but refused Disposition: The patient was medically stable and transported home with family. - ALLERGIES Allergies/Adverse Reactions: Allergies Allergy/AdvReac Type Severity Reaction Status Date / Time Latex, Natural Rubber Allergy Rash Verified 04/16/18 11:49 lisinopril Allergy Respiratory Verified 04/16/18 11:49 - MEDICATIONS Home Medications: Ambulatory Orders Medication Instructions Recorded Confirmed Albuterol Sulfate [Albuterol 2 puffs IH Q4H PRN #1 hfa.aer.ad 08/11/18 Sulfate Hfa] Fluticasone/Salmeterol [Advair 1 each IH BID #1 blst.w.dev 08/11/18 250-50 Diskus] L. Acidophilus/L.bulgaricus 1 each PO BID #60 tablet 08/11/18 [Lactobacillus Tablet] Lactulose [Constulose] 10 gm PO TID #90 solution 08/11/18 Magnesium Oxide [Mag Ox] 400 mg PO DAILY #30 tablet 08/11/18 Montelukast [Singulair] 10 mg PO QPM #30 tablet 08/11/18 Nicotine 7 mg Patch [Nicoderm] 1 each TOP Q24H #14 patch 08/11/18 Propranolol [Inderal] 5 mg PO BID #15 tablet 08/11/18 Spironolactone 25 mg PO DAILY #30 tablet 08/11/18 Tiotropium [place] [Spiriva] 1 puffs INH DAILY 30 Days #30 each 08/11/18 Wheat Dextrin [Benefiber] 1 each PO DAILY #30 powd.pack 08/11/18 guaiFENesin [Mucinex] 600 mg PO BID #60 tablet 08/11/18 levoFLOXacin [Levofloxacin] 500 mg PO DAILY #5 tablet 08/11/18 - PHYSICAL EXAM AT DISCHARGE General Appearance: positive: No acute distress, Alert Eyes Bilateral: positive: PERRL, No lid inflammation ENT: positive: Pharynx nml, No signs of dehydration Neck: positive: No JVD, Trachea midline Respiratory: positive: Chest non-tender, No respiratory distress, Other (diminished with scattered crackles bilaterally) Cardiovascular: positive: Regular rate & rhythm, No gallop, Tachycardia, Systolic murmur, Decreased pulse(s) Peripheral Pulses: positive: 1+ Abdomen: positive: Guarding, Hepatomegaly, Abnml bowel sounds Back: positive: Nml inspection Skin: positive: No rash, Warm, Dry, Other (bronze skin tone, scattered bruising) Extremities: positive: Non-tender, Pedal edema, Joint swelling Neurologic/Psychiatric: positive: Oriented x3, CN's nml (2-12), Weakness, Sensory loss, Slurred/abnml speech (baseline sluggish speech), Depressed mood/affect Reflexes: Bicep (R): 1+, Bicep (L): 1+ - LABS Result Diagrams: 08/11/18 04:45 08/11/18 04:45 - SEPSIS Current Stage of Sepsis: Resolved - FOLLOW UP Follow Up: Disposition: Home, Self Care Prescriptions: Albuterol Sulfate [Albuterol Sulfate Hfa] 2 puffs IH Q4H PRN #1 hfa.aer.ad PRN Reason: Wheezing Fluticasone/Salmeterol [Advair 250-50 Diskus] 1 each IH BID #1 blst.w.dev guaiFENesin [Mucinex] 600 mg PO BID #60 tablet L. Acidophilus/L.bulgaricus [Lactobacillus Tablet] 1 each PO BID #60 tablet Lactulose [Constulose] 10 gm PO TID #90 solution levoFLOXacin [Levofloxacin] 500 mg PO DAILY #5 tablet Magnesium Oxide [Mag Ox] 400 mg PO DAILY #30 tablet Montelukast [Singulair] 10 mg PO QPM #30 tablet Nicotine 7 mg Patch [Nicoderm] 1 each TOP Q24H #14 patch Propranolol [Inderal] 5 mg PO BID #15 tablet Spironolactone 25 mg PO DAILY #30 tablet Tiotropium [place] [Spiriva] 1 puffs INH DAILY 30 Days #30 each Wheat Dextrin [Benefiber] 1 each PO DAILY #30 powd.pack Health Concerns: Alcohol use Pneumonia Medical compliance Plan of Treatment: Please take the antibiotic to clear up your pneumonia for the next 5 days. Please continue taking lactulose 3 times per day to keep your blood ammonia level down (prevent confusion). Please DO not take your other blood pressure pill. Please start taking Propranolol (improves blood flow to the liver from your heart), and reduces blood pressure. Please take a medication called Spironolactone (reduces belly swelling, and maintains heart function) for blood pressure and swelling. Please try the nicotine patches. 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 Physical therapy recommends outpatient services. I have ordered this, but your regular provider will have to follow you on this. Please visit your primary care provider within one week. - TIME SPENT Time Spent in Discharge (Minutes): 55
== END 2018-08-11 14:00 | disposition home or self-care (01) | DRG 871 ==
LOC: ED 01:43 → MS3 06:26 → OBSVTOIN 08-05 11:34
PROVIDERS: ADMIT Family Medicine; ATTEND Nurse Practitioner
DX: F10.188 Alcohol abuse with other alcohol-induced disorder (principal); A41.89 Other specified sepsis; K65.2 Spontaneous bacterial peritonitis; J15.8 Pneumonia due to other specified bacteria; B37.1 Pulmonary candidiasis; J69.0 Pneumonitis due to inhalation of food and vomit; E87.1 Hypo-osmolality and hyponatremia; I20.9 Angina pectoris, unspecified; F10.239 Alcohol dependence with withdrawal, unspecified; Z68.1 Body mass index [BMI] 19.9 or less, adult; E46 Unspecified protein-calorie malnutrition; K70.31 Alcoholic cirrhosis of liver with ascites; R63.4 Abnormal weight loss; Y90.2 Blood alcohol level of 40-59 mg/100 ml; K70.11 Alcoholic hepatitis with ascites; I10 Essential (primary) hypertension; R60.0 Localized edema; C50.919 Malignant neoplasm of unspecified site of unspecified female breast; R62.7 Adult failure to thrive; J43.9 Emphysema, unspecified; F17.210 Nicotine dependence, cigarettes, uncomplicated; E78.5 Hyperlipidemia, unspecified; G89.29 Other chronic pain; M19.90 Unspecified osteoarthritis, unspecified site; M81.0 Age-related osteoporosis without current pathological fracture; M48.061 Spinal stenosis, lumbar region without neurogenic claudication; M54.16 Radiculopathy, lumbar region; K21.9 Gastro-esophageal reflux disease without esophagitis; F32.9 Major depressive disorder, single episode, unspecified; M21.371 Foot drop, right foot; E88.09 Other disorders of plasma-protein metabolism, not elsewhere classified; I95.9 Hypotension, unspecified; E87.70 Fluid overload, unspecified; D75.89 Other specified diseases of blood and blood-forming organs; Z51.5 Encounter for palliative care; Z86.718 Personal history of other venous thrombosis and embolism; Z79.51 Long term (current) use of inhaled steroids; Z79.899 Other long term (current) drug therapy
CPT/HCPCS: 36415; 71045; 71275; 80053; 80202; 81003; 82140; 82533; 82607; 82728; 82746; 83540; 83615; 83690; 83735; 83880; 84100; 84443; 84466; 84484; 85025; 85044; 85610; 87040; 87070; 87077; 87181; 87205; 92610; 93005; 93306; 93970; 94640; 96365; 96366; 96367; 96372; 96375; 96376; 97116; 97161; 97166; 97535; 99222; 99233; 99284; 99285; A6250; A9270; G0378; J2060; J3370; J3411; J7040; J8499; P9047; Q9967; 80320; 81001; 82747; 87086; 96374

== ENCOUNTER 2018-08-14 22:38 | Emergency (ER) | payer MEDICARE, OTHER ==
--- NOTE | 2018-08-14 23:42 | ED Physician Documentation ---
History of Present Illness - Stated complaint Stated Complaint: ABD SWELL/PORT LEAK - Chief complaint Chief Complaint: General - History obtained from History obtained from: Patient, Family - History of Present Illness Timing: How many days ago (3) - Additonal information Additional information: Patient is a 68-year old alcoholic female with history of COPD who has recently been admitted into the hospital with a diagnosis of pneumonia and cirrhosis. She was drinking when she arrived at the hospital and she has gone through withdrawal. She is invested in sobriety as she now realizes the gravity of her liver disease. She left the hospital with some medication changes and she has been taking her medications as directed and this includes the addition of Spironolactone. She is also taking lactulose. She has some mild ascites and she has peripheral edema.She returns to the emergency department tonight with a chief complaint of generalized weakness. She is having a hard time getting out of bed without help. Review of Systems Constitutional: reports: Chills. denies: Fever Eyes: denies: Decreased vision Ears: denies: Ear pain Nose: denies: Rhinorrhea / runny nose, Congestion Throat: denies: Sore throat Cardiac: denies: Chest pain / pressure, Palpitations Respiratory: reports: Dyspnea GI: reports: Abdominal Pain, Abdominal Swelling, Nausea, Diarrhea. denies: Vomiting, Constipation : reports: Frequency. denies: Dysuria Skin: denies: Rash Musculoskeletal: reports: Back pain, Extremity swelling. denies: Neck pain Neurologic: reports: Generalized weakness. 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 Acidophilus/L.bulgaricus 1 each PO BID #60 tablet 08/11/18 08/14/18 [Lactobacillus Tablet] Lactulose [Constulose] 10 gm PO TID #90 solution 08/11/18 08/14/18 Magnesium Oxide [Mag Ox] 400 mg PO DAILY #30 tablet 08/11/18 08/14/18 Montelukast [Singulair] 10 mg PO QPM #30 tablet 08/11/18 08/14/18 Nicotine 7 mg Patch [Nicoderm] 1 each TOP Q24H #14 patch 08/11/18 08/14/18 Propranolol [Inderal] 5 mg PO BID #15 tablet 08/11/18 08/14/18 Spironolactone 25 mg PO DAILY #30 tablet 08/11/18 08/14/18 Tiotropium [place] [Spiriva] 1 puffs INH DAILY 30 Days #30 each 08/11/18 08/14/18 Wheat Dextrin [Benefiber] 1 each PO DAILY #30 powd.pack 08/11/18 08/14/18 guaiFENesin [Mucinex] 600 mg PO BID #60 tablet 08/11/18 08/14/18 levoFLOXacin [Levofloxacin] 500 mg PO DAILY #5 tablet 08/11/18 08/14/18 Furosemide [Lasix] 20 mg PO DAILY #20 tablet 08/15/18 Lactulose [Constulose] 10 gm PO DAILY #300 ml 08/15/18 - Allergies Allergies/Adverse Reactions: Allergies Allergy/AdvReac Type Severity Reaction Status Date / Time Latex, Natural Rubber Allergy Rash Verified 08/14/18 22:56 lisinopril Allergy Respiratory Verified 08/14/18 22:56 - Social History Does the pt smoke?: Yes Smoking Status: Current every day smoker Does the pt drink ETOH?: Yes Does the pt have substance abuse?: No - Immunizations Immunizations are current?: Yes - POLST Patient has POLST: No POLST Status: Full Code PD ED PE NORMAL - Vitals Vital signs reviewed: Yes (hypertensive ) - General General: Alert and oriented X 3, No acute distress, Well developed/nourished - HEENT HEENT: Atraumatic, PERRL, EOMI - Neck Neck: Supple, no meningeal sign, No bony TTP - Cardiac Cardiac: RRR, No murmur - Respiratory Respiratory: No respiratory distress, Clear bilaterally - Abdomen Abdomen: Soft, Other (mild suprapubic tenderness) - Back Back: No CVA TTP, No spinal TTP - Derm Derm: Normal color, Warm and dry, No rash - Extremities Extremities: No deformity, Other (There is pitting edema to the lower ext bilaterally and there is weeping in the thighs. There is some edema to the hands as well. 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, No motor deficit, No sensory deficit, Normal speech Eye Opening: Spontaneous Motor: Obeys Commands Verbal: Oriented GCS Score: 15 - Psych Psych: Normal mood, Normal affect Results - Vitals Vitals: Vital Signs - 24 hr 08/14/18 08/14/18 08/15/18 22:45 23:30 00:30 Temperature 36.8 C Heart Rate 96 88 92 Respiratory 23 22 21 Rate Blood Pressure 171/108 H 155/92 H 143/76 H O2 Saturation 93 100 100 08/15/18 08/15/18 08/15/18 01:33 02:24 03:32 Temperature Heart Rate 85 89 95 Respiratory 18 19 21 Rate Blood Pressure 140/82 H 132/85 H 147/100 H O2 Saturation 99 96 97 08/15/18 04:09 Temperature Heart Rate 95 Respiratory 24 Rate Blood Pressure 162/97 H O2 Saturation 96 Oxygen O2 Source Room air - EKG (time done) 2257 Rate: Rate (enter#) (92) Rhythm: NSR Compare to prior EKG: Unchanged from prior EKG (SPT 08-04-18 baseline wander in V3 has occurred. ) Computer interpretation: Agree with computer - Labs Labs: Laboratory Tests 08/14/18 08/14/18 08/14/18 00:00 00:00 00:00 WBC RBC Hgb Hct MCV MCH MCHC RDW Plt Count MPV Neut # (Auto) Lymph # (Auto) [place] # (Auto) Eos # (Auto) Baso # (Auto) Absolute Nucleated RBC Nucleated RBC % PT 13.4 H INR 1.2 Sodium Potassium Chloride Carbon Dioxide Anion Gap BUN Creatinine Estimated GFR (MDRD) Glucose Calcium Total Bilirubin AST ALT Alkaline Phosphatase Ammonia Troponin I < 0.04 Total Protein Albumin Globulin Albumin/Globulin Ratio Lipase Urine Color Urine Clarity Urine pH Ur Specific [place] Urine Protein Urine Glucose (UA) Urine Ketones Urine Occult Blood Urine Nitrite Urine Bilirubin Urine Urobilinogen Ur Leukocyte Esterase Ur Microscopic Review Urine Culture Comments Ethyl Alcohol < 5.0 08/14/18 08/14/18 08/15/18 00:18 00:18 00:00 WBC 16.7 H RBC 3.82 L Hgb 13.5 Hct 39.7 MCV 103.9 H MCH 35.3 H MCHC 34.0 RDW 14.3 Plt Count 231 MPV 11.9 H Neut # (Auto) 13.6 H Lymph # (Auto) 1.7 [place] # (Auto) 1.2 H Eos # (Auto) 0.0 Baso # (Auto) 0.1 Absolute Nucleated RBC 0.00 Nucleated RBC % 0.0 PT INR Sodium 140 Potassium 3.7 Chloride 107 Carbon Dioxide 20 L Anion Gap 13.0 BUN 20 Creatinine 0.7 Estimated GFR (MDRD) 83 L Glucose 91 Calcium 8.3 L Total Bilirubin 1.9 H AST 120 H ALT 42 Alkaline Phosphatase 280 H Ammonia 13.5 Troponin I Total Protein 5.1 L Albumin 2.2 L Globulin 2.9 Albumin/Globulin Ratio 0.8 L Lipase 36 Urine Color Urine Clarity Urine pH Ur Specific [place] Urine Protein Urine Glucose (UA) Urine Ketones Urine Occult Blood Urine Nitrite Urine Bilirubin Urine Urobilinogen Ur Leukocyte Esterase Ur Microscopic Review Urine Culture Comments Ethyl Alcohol 08/15/18 04:00 WBC RBC Hgb Hct MCV MCH MCHC RDW Plt Count MPV Neut # (Auto) Lymph # (Auto) [place] # (Auto) Eos # (Auto) Baso # (Auto) Absolute Nucleated RBC Nucleated RBC % PT INR Sodium Potassium Chloride Carbon Dioxide Anion Gap BUN Creatinine Estimated GFR (MDRD) Glucose Calcium Total Bilirubin AST ALT Alkaline Phosphatase Ammonia Troponin I Total Protein Albumin Globulin Albumin/Globulin Ratio Lipase Urine Color YELLOW Urine Clarity CLEAR Urine pH 5.0 Ur Specific [place] <=1.005 Urine Protein NEGATIVE Urine Glucose (UA) NEGATIVE Urine Ketones NEGATIVE Urine Occult Blood NEGATIVE Urine Nitrite NEGATIVE Urine Bilirubin NEGATIVE Urine Urobilinogen 0.2 (NORMAL) Ur Leukocyte Esterase NEGATIVE Ur Microscopic Review NOT INDICATED Urine Culture Comments NOT INDICATED Ethyl Alcohol Procedures - IVC sono (time) 2330 Bedside IVC sono: IVC measures (cm) (0.92), IVC collapsed c insp (cm) (complete), Dehydration (est 1-2 liter deficit) PD MEDICAL DECISION MAKING - ED course Complexity details: reviewed old records, reviewed results, re-evaluated patient, considered differential, d/w patient, d/w family ED course: 68-year-old female with recent admission to the hospital for cirrhosis COPD and pneumonia has gone through alcohol withdrawal she is more than 1 week out from withdrawal and she is alcohol negative today. She does have some anasarca and in review of her case she was admitted with anasarca as well. Her chief complaint today is weakness and on interrogation of the inferior vena cava she appears volume depleted despite the anasarca. Here in the emergency department she is provided a banana bag intravenously and her legs are wrapped with Pj wraps and she is eventually given a dose of Lasix as well. She has some improvement and she is concerned about how she will be getting along at home. She does not meet criteria for admission to the hospital but she does have more healing to do, more fluid to get rid of and some physical therapy to do to gain strength. Departure - Departure Disposition: 01 Home, Self Care Clinical Impression: Anasarca, Intravascular volume depletion Instructions: ED Dehydration Follow-Up: [facility] [Provider Group] Prescriptions: Furosemide [Lasix] 20 mg PO DAILY #20 tablet Lactulose [Constulose] 10 gm PO DAILY #300 ml Comments: Today it appears your acute weakness is partly due to intravascular volume depletion. There is still a lot of fluid in your soft tissues and this needs to be mobilized and into the intravascular compartment. In order to achieve this wrap your legs daily and remove the wrapping for several hours daily and rewrap them. The legs should improve day by day in size and you will need to continue to take your Spironolactone. You will also need to drink fluids to stay hydrated. We have added lasix to your medications. This is another diuretic. When your legs are thin again you will need to stop this. If you become weak like you did today do not take it. Follow up with your primary doctor as planned in 2 days.
[2018-08-14] MEDS ORDERED: FOLIC ACID INJ 1 MG, THIAMINE INJ 100 MG, MAGNESIUM SULFATE 2 GM, MULTIVITAMIN 10 ML in... IV STA ×5 (23:46)
[2018-08-14] MEDS ORDERED: HYDROmorphone 1 MG/ML CARPUJECT IVP STA (23:49)
[2018-08-15] MEDS ORDERED: THIAMINE 100 MG/1 ML 2 ML MDV ONE (00:03)
[2018-08-15 00:22] LABS: INR 1.2 (0.8-1.2); PT - PROTHROMBIN TIME 13.4 secs (9.9-12.6)
[2018-08-15 00:23] LABS: BASOPHILS # (AUTO) 0.1 10^3/uL (0.0-0.1); BASOPHILS % (AUTO) 0.3 %; EOSINOPHILS % (AUTO) 0.1 %; HGB - HEMOGLOBIN 13.5 g/dL (12.0-16.0); LYMPHOCYTES # (AUTO) 1.7 10^3/uL (1.5-3.5); LYMPHOCYTES % (AUTO) 10.3 %; MEAN CORPUSCULAR HEMOGLOBIN 35.3 pg (27.0-31.0); MEAN CORPUSCULAR VOLUME 103.9 fL (81.0-99.0); MEAN PLATELET VOLUME 11.9 fL (7.9-10.8); MONOCYTES # (AUTO) 1.2 10^3/uL (0.0-1.0); MONOCYTES % (AUTO) 7.4 %; NEUTROPHILS # (AUTO) 13.6 10^3/uL (1.5-6.6); NEUTROPHILS % (AUTO) 81.2 %; PLT - PLATELET COUNT 231 10^3/uL (130-450); RED BLOOD COUNT 3.82 10^6/uL (4.20-5.40); RED CELL DISTRIBUTION WIDTH 14.3 % (12.0-15.0); WHITE BLOOD COUNT 16.7 x10^3/uL (4.8-10.8)
[2018-08-15 01:39] LABS: ALBUMIN 2.2 g/dL (3.2-5.5); ALBUMIN/GLOBULIN RATIO 0.8 (1.0-2.2); BILIRUBIN,TOTAL 1.9 mg/dL (0.2-1.0); CALCIUM 8.3 mg/dL (8.5-10.3); CREATININE 0.7 mg/dL (0.4-1.0); TOTAL PROTEIN 5.1 g/dL (6.7-8.2)
[2018-08-15] MEDS ORDERED: FUROSEMIDE 40 MG/4 ML VIAL IVP STA (02:13)
[2018-08-15 04:06] LABS: BILIRUBIN,URINE NEGATIVE (NEGATIVE); GLUCOSE, URINE (UA) NEGATIVE (NEGATIVE); KETONES,URINE (UA) NEGATIVE (NEGATIVE); LEUKOCYTE ESTERASE, URINE NEGATIVE (NEGATIVE); NITRITE,URINE NEGATIVE (NEGATIVE); OCCULT BLOOD,URINE NEGATIVE (NEGATIVE); PROTEIN,URINE NEGATIVE (NEGATIVE); UROBILINOGEN,URINE 0.2 (NORMAL) E.U./dL (NORMAL)
[2018-08-15 04:07] LABS: CLARITY,URINE CLEAR (CLEAR)
[2018-08-15 04:38] VITALS: BP 146/84
== END 2018-08-15 05:02 | disposition home or self-care (01) ==
LOC: ED 22:38
DX: R60.1 Generalized edema (principal); E86.0 Dehydration; I10 Essential (primary) hypertension; K74.60 Unspecified cirrhosis of liver; F17.200 Nicotine dependence, unspecified, uncomplicated
CPT/HCPCS: 36415; 80053; 81003; 82140; 83690; 84484; 85025; 85610; 93005; 96365; 96366; 96375; 99283; 99284; J3411; 80320; 81001; 87086

== ENCOUNTER 2018-09-20 11:27 | Outpatient (CLI) | payer MEDICARE, OTHER | END 2018-09-20 11:28 | disposition critical access hospital (66) | LOC: EMS 11:27 | PROVIDERS: ATTEND Surgery | DX: M79.662 Pain in left lower leg (principal); R55 Syncope and collapse; R06.02 Shortness of breath; M54.2 Cervicalgia; W18.39XA Other fall on same level, initial encounter; Y92.002 Bathroom of unspecified non-institutional (private) residence as the place of occurrence of the external cause | CPT/HCPCS: A0425; A0427 ==

== ENCOUNTER 2018-09-20 11:39 | Inpatient (IN) | payer MEDICARE, OTHER ==
[2018-09-20] MEDS ORDERED: MORPHINE 2 MG/ML CARPUJECT IVP STA ×2 (12:07→14:27)
--- NOTE | 2018-09-20 12:11 | ED Physician Documentation ---
PD HPI MAJOR TRAUMA - Stated complaint Stated Complaint: SYNCOPE - Chief complaint Chief Complaint: Trauma Hd/Nk - History obtained from History obtained from: Patient, Family, EMS - History of Present Illness Mechanism of injury: Fell (Is a 68-year old woman with history of COPD and alcoholic cirrhosis who was getting up to go to the bathroom or come back from the bathroom and her legs gave out from her. She fell down injuring her left leg and head and back. Pain is moderate. There was no loss of consciousness. She is more short of breath than normal with a cough productive of clear sputum. She denies any chest pain. She feels like her belly is a little more swollen than normal.) Review of Systems Ten Systems: 10 systems reviewed and negative Constitutional: reports: Fatigue. denies: Fever, Chills Nose: reports: Rhinorrhea / runny nose, Congestion Cardiac: denies: Chest pain / pressure, Palpitations, Calf pain Respiratory: reports: Dyspnea, Cough GI: denies: Abdominal Pain, Nausea, Vomiting, Constipation, Diarrhea PD PAST MEDICAL HISTORY - Past Medical History Cardiovascular: Congestive heart failure, Hypertension, High cholesterol, Deep vein thrombosis, [place] Respiratory: COPD, Emphysema Neuro: None, Other Endocrine/Autoimmune: None GI: Other SUPERVISOR REFINING: Breast cancer : None HEENT: None Psych: Depression, Anxiety Musculoskeletal: Osteoarthritis, Osteoporosis, Chronic back pain Derm: None - Past Surgical History Past Surgical History: Yes General: Colonoscopy, EGD, Other /SUPERVISOR REFINING: Other - Present Medications Home Medications: Ambulatory Orders Medication Instructions Recorded Confirmed Fluticasone/Salmeterol [Advair 1 each IH BID #1 blst.w.dev 08/11/18 08/14/18 250-50 Diskus] L. Acidophilus/L.bulgaricus 1 each PO BID #60 tablet 08/11/18 08/14/18 [Lactobacillus Tablet] Magnesium Oxide [Mag Ox] 400 mg PO DAILY #30 tablet 08/11/18 08/14/18 Montelukast [Singulair] 10 mg PO QPM #30 tablet 08/11/18 08/14/18 RX: Albuterol Sulfate [Albuterol 2 puffs IH Q4H PRN #1 hfa.aer.ad 08/11/18 08/14/18 Sulfate Hfa] RX: Lactulose [Constulose] 10 gm PO TID #90 solution 08/11/18 08/14/18 RX: Nicotine 7 mg Patch [Nicoderm] 1 each TOP Q24H #14 patch 08/11/18 08/14/18 RX: Propranolol [Inderal] 5 mg PO BID #15 tablet 08/11/18 08/14/18 RX: Spironolactone 25 mg PO DAILY #30 tablet 08/11/18 08/14/18 RX: guaiFENesin [Mucinex] 600 mg PO BID #60 tablet 08/11/18 08/14/18 RX: levoFLOXacin [Levofloxacin] 500 mg PO DAILY #5 tablet 08/11/18 08/14/18 Tiotropium [place] [Spiriva] 1 puffs INH DAILY 30 Days #30 each 08/11/18 08/14/18 Wheat Dextrin [Benefiber] 1 each PO DAILY #30 powd.pack 08/11/18 08/14/18 Furosemide [Lasix] 20 mg PO DAILY #20 tablet 08/15/18 RX: Lactulose [Constulose] 10 gm PO DAILY #300 ml 08/15/18 - Allergies Allergies/Adverse Reactions: Allergies Allergy/AdvReac Type Severity Reaction Status Date / Time Latex, Natural Rubber Allergy Rash Verified 09/20/18 11:45 lisinopril Allergy Respiratory Verified 09/20/18 11:45 - Social History Does the pt smoke?: Yes Smoking Status: Current every day smoker Does the pt drink ETOH?: Yes Does the pt have substance abuse?: No - Family History Family history: reports: Non contributory - Immunizations Immunizations are current?: Yes - POLST Patient has POLST: No POLST Status: Full Code PD ED PE NORMAL - Vitals Vital signs reviewed: Yes - General General: Alert and oriented X 3, No acute distress - HEENT HEENT: PERRL, EOMI - Neck Neck: Other (Maintained in c-collar pending imaging despite no bony tenderness due to potential distracting injury.) - Cardiac Cardiac: Other (Tachycardic, regular, no murmur) - Respiratory Respiratory: Other (Diminished throughout, nonlabored) - Abdomen Abdomen: Other (She has moderate ascites which is not tense, no tenderness.) - Back Back: Other (Diffuse spinal tenderness of the thoracic and lumbar spines, there is some ecchymosis near the left scapula posteriorly.) - Derm Derm: Normal color - Extremities Extremities: Other (Tender just below the knee anteriorly to the left leg over the wood/tibia. No other extremity tenderness. There is a lot of bruising on the left tibial area.) - Neuro Neuro: Alert and oriented X 3, No motor deficit, No sensory deficit, Normal speech Results - Vitals Vitals: Vital Signs - 24 hr 09/20/18 09/20/18 09/20/18 11:40 12:21 13:33 Temperature 36.2 C L Heart Rate 118 H 114 H 108 H Respiratory 20 18 18 Rate Blood Pressure 167/109 H 156/105 H 137/82 H O2 Saturation 97 100 100 Oxygen O2 Source Nasal cannula - EKG (time done) 46 Rate: Rate (enter#) (116) Rhythm: Sinus tachycardia, LAE [place]: Normal Intervals: Normal [place] QRS: Normal Ischemia: Normal ST segments Computer interpretation: Agree with computer - Labs Labs: Laboratory Tests 09/20/18 09/20/18 09/20/18 12:37 12:37 12:37 WBC 14.9 H RBC 4.73 Hgb 15.4 Hct 46.7 MCV 98.7 MCH 32.6 H MCHC 33.0 RDW 13.8 Plt Count 234 MPV 10.8 Neut # (Auto) 12.8 H Lymph # (Auto) 1.0 L [place] # (Auto) 0.9 Eos # (Auto) 0.0 Baso # (Auto) 0.1 Absolute Nucleated RBC 0.00 Nucleated RBC % 0.0 PT 12.7 H INR 1.1 Sodium 138 Potassium 3.9 Chloride 101 Carbon Dioxide 25 Anion Gap 12.0 BUN 7 Creatinine 0.6 Estimated GFR (MDRD) 99 Glucose 109 H Lactic Acid Calcium 8.3 L Magnesium 1.8 Total Bilirubin 1.1 H AST 73 H ALT 25 Alkaline Phosphatase 163 H Troponin I High Sens B-Natriuretic Peptide Total Protein 5.6 L Albumin 2.0 L Globulin 3.6 Albumin/Globulin Ratio 0.6 L Lipase 67 H Ethyl Alcohol < 5.0 09/20/18 09/20/18 09/20/18 12:37 12:37 12:37 WBC RBC Hgb Hct MCV MCH MCHC RDW Plt Count MPV Neut # (Auto) Lymph # (Auto) [place] # (Auto) Eos # (Auto) Baso # (Auto) Absolute Nucleated RBC Nucleated RBC % PT INR Sodium Potassium Chloride Carbon Dioxide Anion Gap BUN Creatinine Estimated GFR (MDRD) Glucose Lactic Acid 1.5 Calcium Magnesium Total Bilirubin AST ALT Alkaline Phosphatase Troponin I High Sens 12.4 B-Natriuretic Peptide 167 H Total Protein Albumin Globulin Albumin/Globulin Ratio Lipase Ethyl Alcohol - Rads (name of study) CT Chest/Abd/T/L spine Radiology: EMP read contemporaneously (Bilateral PEs without evidence of right heart strain, possible pulmonary infarction versus edema, large volume ascites; Small splenic infarct.RML Abnormality Lobe, cirrhosis) CT of the head and cervical spine without contrast Radiology: EMP read contemporaneously (No acute injury to the head or neck, degenerative changes in the spine and the left pleural effusion are noted.) PD MEDICAL DECISION MAKING - ED course ED course: 68-year-old woman presents after syncopal episode. She has increased shortness of breath and tachycardia without significant cough raising the specter of potential pulmonary embolism for as the cause of syncope which is proven on imaging. Given that she is a cirrhotic and had a possible head injury, the body was thoroughly imaged with only other findings as shown. Nothing would prevent anticoagulation. She had been on warfarin in the past as well as Xarelto for a remote DVT back in 2011 and requested not to be on warfarin again because of difficulties maintaining a therapeutic INR. She was started on Xarelto. Spine was cleared clinically and radiographically. Call the hospitalist for admission at 2:30 PM given that she is hypoxic off of oxygen, and has multiple comorbidities with her PE. PESI score is 150 points, class V, very high risk with up to a 24.5% 30-day mortality. Spoke with Dr. Sorensen for admission at 2:38 PM who actually requested heparin drip as opposed to the Xarelto and this was held and a heparin drip was started. The radiologist called me back, he thought that the little splenic lesion was probably an infarct but could not rule out a small splenic laceration. She already been started on heparin at this juncture, I called the hospitalist and updated her. She also will follow her H&H's closely obviously and I will ask the surgeon to consult and follow along as well. Dr. Garcia did come by after an operative case and will see the patient on the floor and surgical consult. Her knee x-ray is pending on admission. Departure - Departure Disposition: 66 [facility] DC/Xfer Clinical Impression: Tobacco use disorder, continuous, Dyspnea, Hepatic failure, Back spasm, Pulmonary embolism, Syncope, Head injury, Hypoxemia Condition: Serious Discharge Date/Time: 09/20/18 16:16
[2018-09-20 12:45] LABS: BASOPHILS # (AUTO) 0.1 10^3/uL (0.0-0.1); BASOPHILS % (AUTO) 0.6 %; EOSINOPHILS % (AUTO) 0.1 %; HGB - HEMOGLOBIN 15.4 g/dL (12.0-16.0); LYMPHOCYTES % (AUTO) 6.6 %; MEAN CORPUSCULAR HEMOGLOBIN 32.6 pg (27.0-31.0); MEAN CORPUSCULAR VOLUME 98.7 fL (81.0-99.0); MEAN PLATELET VOLUME 10.8 fL (7.9-10.8); MONOCYTES # (AUTO) 0.9 10^3/uL (0.0-1.0); NEUTROPHILS # (AUTO) 12.8 10^3/uL (1.5-6.6); NEUTROPHILS % (AUTO) 85.8 %; PLT - PLATELET COUNT 234 10^3/uL (130-450); RED BLOOD COUNT 4.73 10^6/uL (4.20-5.40); RED CELL DISTRIBUTION WIDTH 13.8 % (12.0-15.0); WHITE BLOOD COUNT 14.9 x10^3/uL (4.8-10.8)
[2018-09-20 12:52] LABS: INR 1.1 (0.8-1.2); PT - PROTHROMBIN TIME 12.7 secs (9.9-12.6)
[2018-09-20 12:58] LABS: ALBUMIN/GLOBULIN RATIO 0.6 (1.0-2.2); ALKALINE PHOSPHATASE 163 IU/L (42-121); ALT ALANINE AMINOTRANSFERASE 25 IU/L (10-60); AST ASPARTATE AMINOTRANSFERASE 73 IU/L (10-42); BILIRUBIN,TOTAL 1.1 mg/dL (0.2-1.0); BUN - BLOOD UREA NITROGEN 7 mg/dL (6-20); CALCIUM 8.3 mg/dL (8.5-10.3); CARBON DIOXIDE - CO2 25 mmol/L (21-32); CHLORIDE 101 mmol/L (101-111); CREATININE 0.6 mg/dL (0.4-1.0); GFR - MDRD 99 (>89); GLUCOSE 109 mg/dL (70-100); LIPASE 67 U/L (22-51); MAGNESIUM 1.8 mg/dL (1.7-2.8); SODIUM 138 mmol/L (135-145); TOTAL PROTEIN 5.6 g/dL (6.7-8.2)
[2018-09-20] MEDS ORDERED: IOVERSOL 320 100 ML VIAL IVP ONE ×2 (13:10→18:10)
--- NOTE | 2018-09-20 13:54 | CT Report ---
Reason: fall, syncope, cirrhosis, head inj, SOA, Procedure Date: 09/20/2018 Accession Number: [id number] / [id number] Procedure: CT - CERVICAL SPINE WO CPT Code: FULL RESULT: EXAM: CT HEAD. CT SCAN OF THE CERVICAL SPINE. EXAM DATE: 09/20/2018 01:36 PM. CLINICAL HISTORY: Fall, syncope, cirrhosis, head injury, SOA. COMPARISON: CERVICAL SPINE W/O 09/20/2018 1:14 PM. TECHNIQUE: Noncontrast axial sections through the head and cervical spine. Reformats: Sagittal and coronal of the head, coronal and sagittal of the cervical spine. In accordance with CT protocol optimization, one or more of the following dose reduction techniques were utilized for this exam: automated exposure control, adjustment of mA and/or KV based on patient size, or use of iterative reconstructive technique. FINDINGS CT HEAD: Parenchyma: No intraparenchymal hemorrhage. No evidence of mass, midline shift. Handley-white differentiation is distinct. Extraaxial Spaces: Basal cisterns are preserved. No subdural or epidural collections identified. Ventricles: Normal in size and position. Sinuses and orbits: Imaged paranasal sinuses, orbits, and mastoids show no significant abnormality. Bones: No evidence of fracture or calvarial defect. Other: None. FINDINGS CT CERVICAL SPINE: Alignment: The atlantooccipital relationship is preserved. There is approximately 1-2 mm of anterolisthesis of C4 on C5, potentially degenerative in nature. Bones: No fracture or bone lesion. Interspace Levels/Facets: There are multilevel degenerative changes including loss of disk space height, facet arthropathy and lateral mass hypertrophy all of which are most pronounced at C4 through C6 with complete loss of disk space height at C5-C6 with marginal disk osteophyte complex formation. There is mild visual narrowing of the osseous central canal at the C5-C6 level. Osseous neural foramina are preserved. Spinal Canal: Preserved, for degenerative narrowing see above. Musculature: Normal. No fatty atrophy. Other: The paravertebral and prevertebral soft tissues are unremarkable. Lung apices demonstrate at least a moderate-sized left pleural effusion. Emphysema and scarring are also seen. There is a calcified left thyroid nodule. IMPRESSION: Head CT: Negative. Cervical Spine CT: Left pleural effusion and degenerative changes of the cervical spine. Negative for acute osseous trauma to the cervical spine. RAD[facility]
--- NOTE | 2018-09-20 14:13 | CT Report ---
Reason: fall, syncope, cirrhosis, head inj, SOA, Procedure Date: 09/20/2018 Accession Number: [id number] / [id number] Procedure: CT - LUMBAR SPINE WO CPT Code: FULL RESULT: EXAM: CT LUMBAR SPINE WITHOUT CONTRAST EXAM DATE: 09/20/2018 01:43 PM. CLINICAL HISTORY: Fall, pain. COMPARISONS: LUMBAR SPINE W/O 05/23/2018 3:12 PM. TECHNIQUE: Thin-section axial images were acquired of the lumbar spine from T12 to S1 without contrast. Contrast present from preceding CT scan. Post-processing: Coronal and sagittal reformats. Other: None. In accordance with CT protocol optimization, one or more of the following dose reduction techniques were utilized for this exam: automated exposure control, adjustment of mA and/or KV based on patient size, or use of iterative reconstructive technique. FINDINGS: Alignment: No scoliosis or spondylolisthesis. Bones: 5 lumbar vertebrae. No fractures or bone lesions. Disk Levels/Facets: Disk space narrowing at L3-L4 anterolisthesis at L4-L5. Mild degenerative changes. Musculature: Grossly unremarkable. Other: See separate report. IMPRESSION: Lower lumbar degenerative changes. No acute bony disease. RADIA
--- NOTE | 2018-09-20 14:21 | CT Report ---
Reason: fall, syncope, cirrhosis, head inj, SOA, IV only Procedure Date: 09/20/2018 Accession Number: [id number] / [id number] Procedure: CT - Abdomen/Pelvis W CPT Code: FULL RESULT: EXAM: CT ABDOMEN AND PELVIS EXAM DATE: 09/20/2018 01:36 PM. CLINICAL HISTORY: Trauma. Syncope and history of cirrhosis. COMPARISONS: CHEST ANGIO 08/04/2018 4:50 AM. TECHNIQUE: Routine helical CT imaging was performed through the abdomen and pelvis. IV contrast: 90 cc 3 Optiray 320. Enteric contrast: No. Reconstructions: Coronal and sagittal. In accordance with CT protocol optimization, one or more of the following dose reduction techniques were utilized for this exam: automated exposure control, adjustment of mA and/or KV based on patient size, or use of iterative reconstructive technique. FINDINGS: Bones: No acute fracture. No suspicious osseous lesions. Sidewalls: Diffuse subcutaneous edema consistent with anasarca. Images chest: Coronary disease and sclerosis of the thoracic aorta. Small left and trace right pleural effusions. Focus of ground glass opacity in the anterior aspect of the right middle lobe is new from prior study. Likely compressive atelectasis of the left lower lobe Liver: Again cirrhosis with large ascites. No obvious suspicious mass on this single phase study. Gallbladder: Unremarkable. Biliary: Unremarkable. Pancreas: Unremarkable. Spleen: Tiny 1.5 cm wedge-shaped focus of hypointensity within the lower pole of the spleen consistent with infarct. No surrounding hematoma or evidence of traumatic injury. Adrenal glands: Unremarkable. Kidneys: Unremarkable. Urinary bladder: Unremarkable. Reproductive organs: Unremarkable. Bowel: Sigmoid and descending colonic diverticulosis without obvious evidence of diverticulitis. Stomach: Unremarkable. Appendix: Unremarkable. Miscellaneous: No extraluminal gas. Aorta: Normal in caliber. Severe aortic atherosclerosis. Lymph nodes: No pathologically enlarged lymph nodes identified. IMPRESSION: 1. No acute visceral or vascular injury. 2. No acute fracture. 3. Again cirrhosis with large volume ascites. No obvious suspicious mass on this single phase study. 4. Tiny 1.5 cm wedge-shaped focus of hypointensity within the lower pole of the spleen consistent with splenic infarct. Small left trace right pleural effusions. 5. Focus of ground glass opacity in the anterior aspect of the right middle lobe, new from prior study. Correlate clinically for infection/pneumonia. 6. Anasarca [facility] ADDENDUM: 09/20/18 14:44 Addendum: The small wedge shaped area of non-enhancement in the lower pole of the spleen is favored to represent splenic infarct, however, given trauma, small splenic laceration cannot be completely excluded. There is, however, no obvious secondary signs of trauma (no evidence of surrounding hematoma, no evidence of active extravasation). However, the patient's ascites does complicate evaluation. Findings discussed with Dr. Pimentel at 2:50 PM on 09/20/2018 Dr. Moreno.
--- NOTE | 2018-09-20 14:24 | CT Report ---
Reason: fall, syncope, cirrhosis, head inj, SOA, PE protoc Procedure Date: 09/20/2018 Accession Number: [id number] / [id number] Procedure: CT - ANGIO CHEST W/WO CPT Code: FULL RESULT: EXAM: CT ANGIOGRAM CHEST, CT THORACIC SPINE. EXAM DATE: 09/20/2018 01:36 PM. CLINICAL HISTORY: Fall, syncope, cirrhosis, head injury, shortness of air, PE protocol. COMPARISON: CHEST ANGIO 08/04/2018 4:50 AM. ABDOMEN/PELVIS W/ 09/20/2018 1:22 PM. THORACIC SPINE W/O 09/20/2018 1:22 PM. TECHNIQUE: Routine helical imaging was performed through the chest in the pulmonary arterial phase. IV Contrast: 90 mL Optiray 320. Reconstructions: Coronal 3-D MIP reconstructions.Sagittal and coronal. Dedicated small field of view reformatted images of the thoracic spine also obtained. In accordance with CT protocol optimization, one or more of the following dose reduction techniques were utilized for this exam: automated exposure control, adjustment of mA and/or KV based on patient size, or use of iterative reconstructive technique. FINDINGS: Pulmonary Arteries: Diagnostic quality: Adequate through the segmental arteries. There are bilateral pulmonary emboli extending to all lobes. RV/LV is within normal limits. There is no interventricular septal bowing. There is mild reflux of contrast into the hepatic IVC. Lungs/Pleura: Evaluation of pulmonary parenchyma limited by motion and technique dedicated to angiography. Moderate background emphysema. Interstitial thickening and consolidation predominantly in the left lower lobe but also in the right middle lobe. These findings are new. There is a moderate left and trace right pleural effusion. No pneumothorax. Mediastinum: There is biventricular enlargement, no pericardial effusion. No definite lymphadenopathy. Thoracic Aorta: Atherosclerotic without aneurysm. Upper Abdomen: Marked ascites. Other: None. Thoracic Spine: There is no scoliosis or listhesis. There is no fracture. Alignment appears preserved. Osseous central canal is grossly preserved. IMPRESSION: Bilateral pulmonary emboli to all lobes. Distribution of acute parenchymal changes does not match the distribution of most pronounced emboli burden, but would also be atypical for pulmonary edema alone. RAD[facility] The call report notification system was initiated by Dr. Jorge Luis Quintana at 02:14 PM on 09/20/2018. The above call report findings were discussed with Jimy Pimentel by Dr. Jorge Luis Quintana at 02:21 PM on 09/20/2018.
--- NOTE | 2018-09-20 14:25 | CT Report ---
Reason: fall, syncope, cirrhosis, head inj, SOA, back pain Procedure Date: 09/20/2018 Accession Number: [id number] / [id number] Procedure: CT - THORACIC SPINE WO CPT Code: FULL RESULT: EXAM: CT ANGIOGRAM CHEST, CT THORACIC SPINE. EXAM DATE: 09/20/2018 01:36 PM. CLINICAL HISTORY: Fall, syncope, cirrhosis, head injury, shortness of air, PE protocol. COMPARISON: CHEST ANGIO 08/04/2018 4:50 AM. ABDOMEN/PELVIS W/ 09/20/2018 1:22 PM. THORACIC SPINE W/O 09/20/2018 1:22 PM. TECHNIQUE: Routine helical imaging was performed through the chest in the pulmonary arterial phase. IV Contrast: 90 mL Optiray 320. Reconstructions: Coronal 3-D MIP reconstructions.Sagittal and coronal. Dedicated small field of view reformatted images of the thoracic spine also obtained. In accordance with CT protocol optimization, one or more of the following dose reduction techniques were utilized for this exam: automated exposure control, adjustment of mA and/or KV based on patient size, or use of iterative reconstructive technique. FINDINGS: Pulmonary Arteries: Diagnostic quality: Adequate through the segmental arteries. There are bilateral pulmonary emboli extending to all lobes. RV/LV is within normal limits. There is no interventricular septal bowing. There is mild reflux of contrast into the hepatic IVC. Lungs/Pleura: Evaluation of pulmonary parenchyma limited by motion and technique dedicated to angiography. Moderate background emphysema. Interstitial thickening and consolidation predominantly in the left lower lobe but also in the right middle lobe. These findings are new. There is a moderate left and trace right pleural effusion. No pneumothorax. Mediastinum: There is biventricular enlargement, no pericardial effusion. No definite lymphadenopathy. Thoracic Aorta: Atherosclerotic without aneurysm. Upper Abdomen: Marked ascites. Other: None. Thoracic Spine: There is no scoliosis or listhesis. There is no fracture. Alignment appears preserved. Osseous central canal is grossly preserved. IMPRESSION: Bilateral pulmonary emboli to all lobes. Distribution of acute parenchymal changes does not match the distribution of most pronounced emboli burden, but would also be atypical for pulmonary edema alone. RAD[facility] The call report notification system was initiated by Dr. Jorge Luis Quintana at 02:14 PM on 09/20/2018. The above call report findings were discussed with Jimy Pimentel by Dr. Jorge Luis Quintana at 02:21 PM on 09/20/2018.
[2018-09-20] MEDS ORDERED: RIVAROXABAN 15 MG TABLET PO STA (14:27)
[2018-09-20] MEDS ORDERED: HEPARIN 25000UNITS/500ML (D5W) 25,000 UNIT/500 ML BAG IV STA (14:37)
[2018-09-20] MEDS ORDERED: ONDANSETRON 4 MG/2 ML VIAL IVP PRN (14:58)
[2018-09-20] MEDS ORDERED: ACETAMINOPHEN 325 MG TABLET PO PRN (14:58)
[2018-09-20] MEDS ORDERED: MORPHINE 2 MG/ML CARPUJECT IVP PRN (14:58)
[2018-09-20] MEDS ORDERED: SODIUM CHLORIDE FLUSH 0.9% 10 ML SYRINGE IVP PRN (14:58)
--- NOTE | 2018-09-20 15:40 | XRAY Report ---
Reason: knee inj Procedure Date: 09/20/2018 Accession Number: [id number] / [id number] Procedure: XR - Knee 4 View LT CPT Code: FULL RESULT: EXAM: LEFT KNEE RADIOGRAPHY EXAM DATE: 09/20/2018 03:06 PM. CLINICAL HISTORY: Knee inj. COMPARISON: None. TECHNIQUE: 1 views. FINDINGS: Bones: Oblique fracture of the proximal left fibula. Joints: Normal. No effusion. No subluxations. Soft Tissues: Normal. No soft tissue swelling. IMPRESSION: Oblique fracture of the proximal left fibula. RADIA
[2018-09-20] MEDS ORDERED: ALBUTEROL NEB 2.5 MG/3 ML INH PRN (16:00)
[2018-09-20 16:05] LABS: HGB - HEMOGLOBIN 16.1 g/dL (12.0-16.0)
[2018-09-20] MEDS ORDERED: AZITHROMYCIN 250 MG TABLET PO STA (16:05)
--- NOTE | 2018-09-20 16:12 | HISTORY & PHYSICAL EXAMINATION ---
Chief Complaint - Chief Complaint Chief Complaint: fall History of Present Illness - History of Present Illness HPI Comment/Other: Ms. Johnson is a 68-year-old female with a PMH significan for copd/emphysema, current tobacco abuse, and chronic etoh abuse disorder with cirrhosis and ascites, admitted in Apr 02 for BL cellulitis with edema, alcohol intoxi cation, HTN, HLP, survivor of breast cancer, status post of lumpectomy and chemotx currently on anastazole, hx of DVT in past, chronic back pain, OA, osteoporosis, recent diagnosis of right foot drop p/w swelling in her lower extremities, L-spine radiculopathy secondary to stenosis, hx of heart failure and MT, who present ER complain of fall and syncope. she report she was getting up to go to the bathroom or come back from the bathroom and her legs gave out from her. She fell back and she believed injury of her left leg and head and back. CT of head, throacic, lumbar, head, chest, cervical, pelvis reveals no acute fracture. Left knee Xray reveals oblique fracture of the proximal left fibula. CTA of chest reveals bilateral pulmonary emboli to all lobes. pt's PESI score is 140 points, class V, very high risk with up to a 24.5% 30-day mortality. Heparin drip was initiated in ER for pt. Per ER provider report, radiologist called ER, radiologist thought that pt had the little splenic lesion , it was probably an infarct but could not rule out a small splenic laceration, But pt has already been started on heparin at the time. For this reason, surgeon was called and consulted. she denies rectal GI bleed, nausea, vomiting, chest pain, fever, chill, headache, vision change. Pt request full code at the time for admission. I discussed with pt, pt's and pt's daughter about pt's medical conditions. pt and her family did understand she is on very serious medical conditions including, but not limited, alcoholic cirrhosis with ascites, advanced COPD and pneumonia with current cigarette smoking, PE in all her lung lobes, little splenic lesion with probably an infarct but could not rule out a small splenic laceration for risk of bleeding. Pt state her family will discuss her code status, now she request full code. 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: reports: Breast cancer : reports: None HEENT: reports: None Psych: reports: Depression, Anxiety Musculoskeletal: reports: Osteoarthritis, Osteoporosis, Chronic back pain Derm: reports: None MRSA Hx?: No - Past Surgical History General: reports: Colonoscopy, EGD, Other /CHANNEL OPENER OUTSOLES: reports: Other - Substance History Use: Uses substance without health or social issues: Tobacco - POLST Patient has POLST: No POLST Status: Full Code Meds/Allgy - Home Medications Home Medications: Ambulatory Orders Medication Instructions Recorded Confirmed Albuterol Sulfate [Albuterol 2 puffs IH Q4H PRN #1 hfa.aer.ad 08/11/18 08/14/18 Sulfate Hfa] Fluticasone/Salmeterol [Advair 1 each IH BID #1 blst.w.dev 08/11/18 08/14/18 250-50 Diskus] L. Acidophilus/L.bulgaricus 1 each PO BID #60 tablet 08/11/18 08/14/18 [Lactobacillus Tablet] Lactulose [Constulose] 10 gm PO TID #90 solution 08/11/18 08/14/18 Magnesium Oxide [Mag Ox] 400 mg PO DAILY #30 tablet 08/11/18 08/14/18 Montelukast [Singulair] 10 mg PO QPM #30 tablet 08/11/18 08/14/18 Nicotine 7 mg Patch [Nicoderm] 1 each TOP Q24H #14 patch 08/11/18 08/14/18 Propranolol [Inderal] 5 mg PO BID #15 tablet 08/11/18 08/14/18 Spironolactone 25 mg PO DAILY #30 tablet 08/11/18 08/14/18 Tiotropium [place] [Spiriva] 1 puffs INH DAILY 30 Days #30 each 08/11/18 08/14/18 Wheat Dextrin [Benefiber] 1 each PO DAILY #30 powd.pack 08/11/18 08/14/18 guaiFENesin [Mucinex] 600 mg PO BID #60 tablet 08/11/18 08/14/18 levoFLOXacin [Levofloxacin] 500 mg PO DAILY #5 tablet 07/05/19 07/08/19 Furosemide [Lasix] 20 mg PO DAILY #20 tablet 08/15/18 Lactulose [Constulose] 10 gm PO DAILY #300 ml 08/15/18 - Allergies Allergies/Adverse Reactions: Allergies Allergy/AdvReac Type Severity Reaction Status Date / Time Latex, Natural Rubber Allergy Rash Verified 09/20/18 11:45 lisinopril Allergy Respiratory Verified 09/20/18 11:45 Review of Systems - Constitutional Constitutional: reports: Fatigue, Weakness. denies: Fever, Chills, Malaise, Poor appetite, Diaphoresis, Night sweats, Weight gain, Weight loss - Eyes Eyes: denies: Pain, Irritation, Amaurosis, Blurred vision, Spots in vision, Field loss, Vision loss, Dipolpia - Ears, Nose & Throat Ears, Nose & Throat: denies: Ear pain, Hearing loss, Hearing aids, Tinnitus, Vertigo, Nasal pain, Nasal discharge, Nosebleeds, Nasal obstruction, Nasal congestion, Postnasal drainage, Dentures, Sore throat, Hoarseness, Mouth lesions, Bleeding gums - Cardiovascular Cariovascular: reports: Syncope, Exertional dyspnea, Decr. exercise tolerance. denies: Irregular heart rate, Palpitations, Chest pain, Edema, Lightheadedness - Respiratory Respiratory: reports: Cough, Sputum production, SOB with exertion. denies: Wheezing, Snoring, Hemoptysis, Orthopnea, SOB at rest, Apnea, Stridor, Pleuritic pain, Other - Gastrointestinal Gastrointestinal: denies: Abdominal pain, Abdominal distention, Constipation, Diarrhea, Change in bowel habits, Rectal bleeding, Black stools, Bloody stools, Nausea, Vomiting, Bile emesis, Shaquille blood emesis, Coffee grounds emesis, Reflux/heartburn - Genitourinary Genitourinary: denies: Dysuria, Frequency, Urgency, Hematuria, Incontinence, Flank pain, Nocturia, Urethral discharge - Musculoskeletal Musculoskeletal: denies: Muscle pain, Back pain, Muscle aches, Stiffness, Limited range of motion, Muscle weakness, Gout, Joint pain - Integumentary Integumentary: denies: Pruritis, Lesions, Dryness, Lumps, Acne, Pigment changes - Neurological Neurological: reports: General weakness. denies: Focal weakness, Headache, Dizziness, Numbness, Memory problems, Pre-existing deficit, Abnormal gait, Seizures, Incoordination, Slurred speech - Psychiatric Psychiatric: denies: Depression, Anxiety, Suicidal, Delusions, Hallucinations, Homicidal - Endocrine Endocrine: denies: Polyuria, Polydypsia, Polyphagia, Intolerance to cold - Hematologic/Lymphatic Hematologic/Lymphatic: denies: Anemia, Bruising, Petechiae, Blood clots, Lymphadenopathy, Bleeding tendencies Exam - Vital Signs Reviewed Vital Signs: Yes Vital Signs: Vital Signs x48h Temp Pulse Resp BP Pulse Ox 09/20/18 15:00 116 H 22 131/85 H 94 09/20/18 13:33 108 H 18 137/82 H 100 09/20/18 12:21 114 H 18 156/105 H 100 09/20/18 11:40 36.2 C L 118 H 20 167/109 H 97 - Physical Exam General Appearance: positive: No acute distress, Alert. negative: Lethargic Eyes Bilateral: positive: Normal inspection, PERRL, No lid inflammation, Conjunctivae nml ENT: positive: ENT inspection nml, Pharynx nml, No signs of dehydration. negative: Purulent nasal drainage, Pharyngeal erythema, Oral lesions Neck: positive: Nml inspection, Thyroid nml, No JVD, Trachea midline. negative: Thyromegaly, Lymphadenopathy (R), Lymphadenopathy (L), Stiff neck, Swelling/bruising, Tracheal deviation Respiratory: positive: Chest non-tender, No respiratory distress, Rhonchi. negative: Wheezes, Rales Cardiovascular: positive: Regular rate & rhythm, No murmur, No gallop, Tachycardia. negative: Irregularly irregular, Extrasystoles, Bradycardia, JVD present, Systolic murmur, Diastolic murmur Peripheral Pulses: positive: 2+ Abdomen: positive: Non-tender, No organomegaly. negative: No distention, Tenderness, Guarding, Rebound Back: positive: Nml inspection. negative: CVA tenderness (R), CVA tenderness (L) Skin: positive: Warm, Dry, Skin rash, Laceration (cm). negative: Cyanosis, Diaphoresis, Pallor Extremities: positive: Non-tender. negative: Nml appearance, Calf tenderness, Joint swelling, Eleanor's sign/cords Neurologic/Psychiatric: positive: Oriented x3, Sensation nml. negative: Weakness, Sensory loss, Facial droop, Slurred/abnml speech, Depressed mood/affect Conclusion/Plan - Problem List (1) Pulmonary embolism Conclusion/Plan: pt present SOB, hx of blood clots in port site in 2013. CXT reveals PE in all her lung lobes. PESI score is high 140, high mortality risk. agree on Heparin drip continue heparin drip protocol H&H monitor HGB level for any bleed, discuss with nurse to monitor pt's bleed pt is on tele and vital closely monitor Qualifiers: Pulmonary embolism type: other Chronicity: acute Acute cor pulmonale presence: without acute cor pulmonale Qualified Code(s): I26.99 - Other pulmonary embolism without acute cor pulmonale (2) Spleen disease Conclusion/Plan: radiologist thought that pt had the little splenic lesion, it was probably an infarct but could not rule out a small splenic laceration. pt also has hx of alcoholic cirrhosis with asites. it is high risk for bleed at the same time. pt had plt 234 at the admission consult with surgeon type screen for blood H&H every Q4H, discuss with nurse for monitor for bleeding (3) Altered mental status Conclusion/Plan: up on examination, pt's mental status improved. she is alert and oriented to person and location. CT of head was unremarkable. check ammonia level continue home Luctoluse neuro check (4) Alcoholic cirrhosis Conclusion/Plan: pt has hx of alcoholic cirrhosis and with ascites. pt report she stop alcohol for about 4 hours. we closely monitor pt if pt need taper of her asictes, monitor GI bleed continue home Lactoluse hold hepatic intoxic agents prevention for peritonitis with Zosyn (5) Pneumonia Conclusion/Plan: pt took Levaquin for her pneumonia at home, but still present cough, with pulmonary congestion, elevated WBC, and hypoxia treat with antibiotics Azith and Rocephin, now switch for Zosyn supplement of O2 as needed (6) Left fibular fracture Conclusion/Plan: pt has a fall at home. XRay reveals oblique fracture of the proximal left fibula. consult with orthopedics pain control consult with PT (7) COPD (chronic obstructive pulmonary disease) Conclusion/Plan: COPD with current smoker. treated with Albuterol and Duoneb, reconcile of home singular supplement of O2 as needed advise pt quit cigarette smoking (8) Tobacco use disorder, continuous Conclusion/Plan: pt has advanced COPD, hypoxia, hx of breast cancer, strongly advise quit tobacco smoking (9) Anasarca Conclusion/Plan: pt present anasarca in her extremities, likely be caused by her hepatic failure. precaution of IVF support pt (10) Full code status Conclusion/Plan: pt request full code now. she will discuss with her family and might change. - Lab Results Fish Bones: 09/21/18 08:54 09/21/18 04:55 Core Measures - Anticipated LOS I expect patient to be DC'd or transferred within 96 hours.: Yes - Stroke - Rehab Assessment Rehab services assessment to be ordered?: Yes - AMI - Statin at Admit Aspirin Prescribed on Admit: Yes
[2018-09-20] MEDS ORDERED: IPRATROPIUM/ALBUTEROL 3 ML NEB INH PRN (16:16)
[2018-09-20] MEDS: FUROSEMIDE 20 MG TABLET PO SCH (17:05)
--- NOTE | 2018-09-20 17:17 | CONSULTATION NOTE ---
Referring Provider Name of Referring Provider:: Dr. Jimy Gutierrez Consult Date: 09/20/18 Chief Complaint - Chief Complaint Chief Complaint: Fall with possible spleen injury History of Present Illness - Admitted From Admitted From:: Emergency Department - History Obtained From Records Reviewed: Prior admissions, provider's notes, studies History obtained from: Patient and providers Exam Limitations: None - History of Present Illness HPI Comment/Other: Raquel is a pleasant and unfortunate 68 year old lady with a complex medical history and numerous medical problems. She says she was in her usual state of health today when her "legs gave out" and she feel backwards in her home. She denies striking any portion of her abdomen or chest. She says "I fell straight back". She was noted to have multiple PEs on evaluation in the ED as well as a splenic infarct. The radiologist raises the possibility that the infarct could be a small laceration so I have been consulted for this reason. Raquel says she always has pain at the site of her lowest rib on the right. Some days worse and some days better but always there. She says she feels her usual tenderness today but not more. She also reminds me that she has cirrhosis and ascites and her abdomen has been getting bigger for the last several day. She denies any fever at home. 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: reports: Breast cancer : reports: None HEENT: reports: None Psych: reports: Depression, Anxiety Musculoskeletal: reports: Osteoarthritis, Osteoporosis, Chronic back pain Derm: reports: None MRSA Hx?: No - Past Surgical History General: reports: Colonoscopy, EGD, Other /HARNESS PULLER: reports: Other - Substance History Use: Uses substance without health or social issues: Tobacco - POLST Patient has POLST: No POLST Status: Full Code Meds/Allgy - Home Medications Home Medications: Ambulatory Orders Medication Instructions Recorded Confirmed Albuterol Sulfate [Albuterol 2 puffs IH Q4H PRN #1 hfa.aer.ad 08/11/18 08/14/18 Sulfate Hfa] Fluticasone/Salmeterol [Advair 1 each IH BID #1 blst.w.dev 08/11/18 08/14/18 250-50 Diskus] L. Acidophilus/L.bulgaricus 1 each PO BID #60 tablet 08/11/18 08/14/18 [Lactobacillus Tablet] Lactulose [Constulose] 10 gm PO TID #90 solution 08/11/18 08/14/18 Magnesium Oxide [Mag Ox] 400 mg PO DAILY #30 tablet 08/11/18 08/14/18 Montelukast [Singulair] 10 mg PO QPM #30 tablet 08/11/18 08/14/18 Nicotine 7 mg Patch [Nicoderm] 1 each TOP Q24H #14 patch 08/11/18 08/14/18 Propranolol [Inderal] 5 mg PO BID #15 tablet 08/11/18 08/14/18 Spironolactone 25 mg PO DAILY #30 tablet 08/11/18 08/14/18 Tiotropium [place] [Spiriva] 1 puffs INH DAILY 30 Days #30 each 08/11/18 08/14/18 Wheat Dextrin [Benefiber] 1 each PO DAILY #30 powd.pack 08/11/18 08/14/18 guaiFENesin [Mucinex] 600 mg PO BID #60 tablet 08/11/18 08/14/18 levoFLOXacin [Levofloxacin] 500 mg PO DAILY #5 tablet 08/11/18 08/14/18 Furosemide [Lasix] 20 mg PO DAILY #20 tablet 08/15/18 Lactulose [Constulose] 10 gm PO DAILY #300 ml 08/15/18 - Allergies Allergies/Adverse Reactions: Allergies Allergy/AdvReac Type Severity Reaction Status Date / Time Latex, Natural Rubber Allergy Rash Verified 09/20/18 11:45 lisinopril Allergy Respiratory Verified 09/20/18 11:45 Review of Systems - Constitutional Constitutional: reports: Fatigue, Weakness, Poor appetite. denies: Fever, Chills, Malaise, Diaphoresis, Night sweats - Eyes Eyes: denies: Pain, Irritation, Dipolpia - Ears, Nose & Throat Ears, Nose & Throat: denies: Tinnitus, Vertigo, Nasal pain, Nasal discharge - Cardiovascular Cariovascular: reports: Chest pain, Lightheadedness, Syncope, Exertional dyspnea, Decr. exercise tolerance, Orthopnea ("sometimes"). denies: Irregular heart rate, Palpitations - Respiratory Respiratory: reports: Cough, Wheezing, SOB at rest, SOB with exertion, Other (reports "pretty bad" COPD - says this is her baseline) - Gastrointestinal Gastrointestinal: reports: Abdominal pain, Abdominal distention, Diarrhea. denies: Change in bowel habits, Rectal bleeding, Black stools, Bloody stools, Nausea, Vomiting, Bile emesis - Genitourinary Genitourinary: denies: Dysuria, Frequency, Urgency - Musculoskeletal Musculoskeletal: reports: Muscle pain, Back pain, Muscle aches, Stiffness, Limited range of motion, Muscle weakness, Joint pain - Integumentary Integumentary: denies: Rash, Pruritis - Neurological Neurological: reports: General weakness. denies: Focal weakness, Headache, Numbness - Psychiatric Psychiatric: denies: Depression, Anxiety - Hematologic/Lymphatic Hematologic/Lymphatic: reports: Bruising, Blood clots, Recurrent infections. denies: Anemia Exam - Vital Signs Reviewed Vital Signs: Yes Vital Signs: Vital Signs x48h Temp Pulse Resp BP Pulse Ox 09/20/18 15:00 116 H 22 131/85 H 94 09/20/18 13:33 108 H 18 137/82 H 100 09/20/18 12:21 114 H 18 156/105 H 100 09/20/18 11:40 36.2 C L 118 H 20 167/109 H 97 - Physical Exam General Appearance: positive: No acute distress, Alert Eyes Bilateral: positive: Normal inspection, PERRL, EOMI, Conjunctivae nml. negative: No scleral icterus ENT: positive: ENT inspection nml. negative: Purulent nasal drainage Neck: positive: Nml inspection, Thyroid nml, No JVD, Trachea midline Respiratory: positive: No respiratory distress, Other (Anterior chest is tender to palpation, at the midline and just lateral to it, in the region of the 11th and 12th ribs) Cardiovascular: positive: Regular rate & rhythm Abdomen: positive: Nml bowel sounds, No distention, Tenderness, Other (Tender to palpation in the right upper quadrant but not the right flank. Fluid wave is appreciated with palpation). negative: Guarding, Rebound Back: positive: Nml inspection. negative: CVA tenderness (R), CVA tenderness (L) Skin: positive: Dry, Other (Multiple areas of ecchymosis. Very thin skin with attenuated dermal layer and minimal subcutaneous fat.) Extremities: positive: Non-tender Neurologic/Psychiatric: positive: Oriented x3, CN's nml (2-12) Conclusion/Plan - Diagnosis Diagnosis: Splenic infarct in the setting of showering emboli. I agree with all excellent care provided by both the Emergency Department and the Hospitalist Service. Would continue serial H/H. Reimage if there is any noticable drop and do not hesitate to transfer to a facility with Interventional Radiology capability if concern arises. She is an extraordinarily high operative risk. - Lab Results Fish Bones: 09/20/18 15:59 09/20/18 12:37 - Diagnostic Imaging Results Diagnostic Imaging Results Comments: Final Report PT NAME: RAQUEL MARQUIS MR#: [id number] REG ER/ED AGE: 68 CI DT/TM: 09/20/18 PCP: : 1950 ATT: SEX: F ORD: Jimy calhoun MD EXAM: CT/ABPEW ([id number]) Reason: fall, syncope, cirrhosis, head inj, SOA, IV only Procedure Date: 09/20/2018 Accession Number: [id number] / [id number] Procedure: CT - Abdomen/Pelvis W CPT Code: FULL RESULT: EXAM: CT ABDOMEN AND PELVIS EXAM DATE: 09/20/2018 01:36 PM. CLINICAL HISTORY: Trauma. Syncope and history of cirrhosis. COMPARISONS: CHEST ANGIO 08/04/2018 4:50 AM. TECHNIQUE: Routine helical CT imaging was performed through the abdomen and pelvis. IV contrast: 90 cc 3 Optiray 320. Enteric contrast: No. Reconstructions: Coronal and sagittal. In accordance with CT protocol optimization, one or more of the following dose reduction techniques were utilized for this exam: automated exposure control, adjustment of mA and/or KV based on patient size, or use of iterative reconstructive technique. FINDINGS: Bones: No acute fracture. No suspicious osseous lesions. Sidewalls: Diffuse subcutaneous edema consistent with anasarca. Images chest: Coronary disease and sclerosis of the thoracic aorta. Small left and trace right pleural effusions. Focus of ground glass opacity in the anterior aspect of the right middle lobe is new from prior study. Likely compressive atelectasis of the left lower lobe Liver: Again cirrhosis with large ascites. No obvious suspicious mass on this single phase study. Gallbladder: Unremarkable. Biliary: Unremarkable. Pancreas: Unremarkable. Spleen: Tiny 1.5 cm wedge-shaped focus of hypointensity within the lower pole of the spleen consistent with infarct. No surrounding hematoma or evidence of traumatic injury. Adrenal glands: Unremarkable. Kidneys: Unremarkable. Urinary bladder: Unremarkable. Reproductive organs: Unremarkable. Bowel: Sigmoid and descending colonic diverticulosis without obvious evidence of diverticulitis. Stomach: Unremarkable. Appendix: Unremarkable. Miscellaneous: No extraluminal gas. Aorta: Normal in caliber. Severe aortic atherosclerosis. Lymph nodes: No pathologically enlarged lymph nodes identified. IMPRESSION: 1. No acute visceral or vascular injury. 2. No acute fracture. 3. Again cirrhosis with large volume ascites. No obvious suspicious mass on this single phase study. 4. Tiny 1.5 cm wedge-shaped focus of hypointensity within the lower pole of the spleen consistent with splenic infarct. Small left trace right pleural effusions. 5. Focus of ground glass opacity in the anterior aspect of the right middle lobe, new from prior study. Correlate clinically for infection/pneumonia. 6. Anasarca
[2018-09-20] MEDS ORDERED: SODIUM CHLORIDE 0.9% MINIBAG 100 ML IV ONE (17:53)
[2018-09-20] MEDS: cefTRIAXone 1 GM VIAL IVP SCH (17:59)
[2018-09-20] MEDS: SODIUM CHLORIDE FLUSH 0.9% 10 ML SYRINGE IVP SCH (17:59)
[2018-09-20] MEDS: SACCHAROMYCES BOULARDII 250 MG CAPSULE PO SCH (18:08)
[2018-09-20] MEDS: BUDESONIDE 0.5 MG/2 ML NEB INH SCH (19:57)
[2018-09-20] MEDS ORDERED: MONTELUKAST 10 MG TABLET PO SCH (21:00)
[2018-09-20] MEDS: FAMOTIDINE 20 MG TABLET PO SCH (21:01)
[2018-09-20] MEDS: guaiFENesin 600 MG TABLET PO SCH (21:01)
[2018-09-20] MEDS: PROPRANOLOL 10 MG TABLET PO SCH (21:01)
[2018-09-20] MEDS: NYSTATIN CREAM 15 GM TUBE TOP SCH (21:01)
[2018-09-20 22:26] LABS: BILIRUBIN,URINE NEGATIVE (NEGATIVE); GLUCOSE, URINE (UA) NEGATIVE (NEGATIVE); KETONES,URINE (UA) NEGATIVE (NEGATIVE); LEUKOCYTE ESTERASE, URINE SMALL (NEGATIVE); NITRITE,URINE NEGATIVE (NEGATIVE); OCCULT BLOOD,URINE NEGATIVE (NEGATIVE); PROTEIN,URINE NEGATIVE (NEGATIVE); UROBILINOGEN,URINE 0.2 (NORMAL) E.U./dL (NORMAL)
[2018-09-20 22:32] LABS: CLARITY,URINE HAZY (CLEAR)
[2018-09-20 22:37] LABS: BACTERIA,URINE Many /HPF (None Seen); CRYSTALS,URINE 0-2 Calcium Oxalate /LPF; RBC,URINE 0-5 /HPF (0-5); SQUAMOUS EPITHELIAL CELL,UR MANY Squamous (<= Few)
[2018-09-20] MEDS: LACTULOSE 10 GM /15 ML UDC PO SCH (23:01)
[2018-09-20 23:23] LABS: HGB - HEMOGLOBIN 13.2 g/dL (12.0-16.0)
[2018-09-21] MEDS: SODIUM CHLORIDE FLUSH 0.9% 10 ML SYRINGE IVP SCH ×3 (00:27→16:07)
[2018-09-21 05:51] LABS: BASOPHILS # (AUTO) 0.1 10^3/uL (0.0-0.1); BASOPHILS % (AUTO) 0.7 %; EOSINOPHILS # (AUTO) 0.8 10^3/uL (0.0-0.7); EOSINOPHILS % (AUTO) 6.2 %; HGB - HEMOGLOBIN 11.8 g/dL (12.0-16.0); LYMPHOCYTES # (AUTO) 1.8 10^3/uL (1.5-3.5); LYMPHOCYTES % (AUTO) 13.6 %; MEAN CORPUSCULAR HEMOGLOBIN 31.2 pg (27.0-31.0); MEAN CORPUSCULAR VOLUME 97.6 fL (81.0-99.0); MEAN PLATELET VOLUME 11.1 fL (7.9-10.8); MONOCYTES # (AUTO) 1.1 10^3/uL (0.0-1.0); MONOCYTES % (AUTO) 8.5 %; NEUTROPHILS # (AUTO) 9.4 10^3/uL (1.5-6.6); NEUTROPHILS % (AUTO) 70.5 %; PLT - PLATELET COUNT 193 10^3/uL (130-450); RED BLOOD COUNT 3.78 10^6/uL (4.20-5.40); WHITE BLOOD COUNT 13.3 x10^3/uL (4.8-10.8)
[2018-09-21 06:02] LABS: ALBUMIN 1.6 g/dL (3.2-5.5); ALBUMIN/GLOBULIN RATIO 0.6 (1.0-2.2); BILIRUBIN,TOTAL 0.5 mg/dL (0.2-1.0); CALCIUM 7.6 mg/dL (8.5-10.3); CREATININE 0.5 mg/dL (0.4-1.0); MAGNESIUM 1.6 mg/dL (1.7-2.8); TOTAL PROTEIN 4.5 g/dL (6.7-8.2)
[2018-09-21] MEDS: LACTULOSE 10 GM /15 ML UDC PO SCH ×2 (06:24→15:11)
[2018-09-21] MEDS: BUDESONIDE 0.5 MG/2 ML NEB INH SCH ×2 (07:15→19:38)
[2018-09-21] MEDS ORDERED: POTASSIUM CHLORIDE 20 MEQ TABLET PO SCH (07:39)
[2018-09-21] MEDS ORDERED: MAGNESIUM OXIDE 400 MG TABLET PO SCH (08:00)
[2018-09-21] MEDS: FUROSEMIDE 20 MG TABLET PO SCH (08:08)
[2018-09-21] MEDS: cefTRIAXone 1 GM VIAL IVP SCH (08:08)
[2018-09-21] MEDS: SACCHAROMYCES BOULARDII 250 MG CAPSULE PO SCH ×2 (08:08→16:13)
[2018-09-21] MEDS: FAMOTIDINE 20 MG TABLET PO SCH (08:08)
[2018-09-21] MEDS: guaiFENesin 600 MG TABLET PO SCH (08:08)
[2018-09-21] MEDS: NYSTATIN CREAM 15 GM TUBE TOP SCH (08:09)
[2018-09-21] MEDS: PROPRANOLOL 10 MG TABLET PO SCH (08:11)
[2018-09-21 08:59] LABS: HGB - HEMOGLOBIN 12.4 g/dL (12.0-16.0)
[2018-09-21] MEDS ORDERED: AZITHROMYCIN 250 MG TABLET PO SCH (09:00)
[2018-09-21] MEDS ORDERED: POLYETHYLENE GLYCOL 3350 17 GM PACKET PO SCH (09:00)
[2018-09-21] MEDS ORDERED: SPIRONOLACTONE 25 MG TABLET PO SCH (09:00)
[2018-09-21] MEDS ORDERED: NICOTINE 7 MG PATCH TOP SCH (09:00)
[2018-09-21] MEDS ORDERED: IOVERSOL 320 100 ML VIAL IVP ONE (10:51)
[2018-09-21 11:58] LABS: HGB - HEMOGLOBIN 12.9 g/dL (12.0-16.0)
--- NOTE | 2018-09-21 12:05 | CT Report ---
Reason: spleen infarct/laceration, bleeding Procedure Date: 09/21/2018 Accession Number: [id number] / [id number] Procedure: CT - Abdomen/Pelvis W CPT Code: FULL RESULT: EXAM: CT ABDOMEN AND PELVIS EXAM DATE: 09/21/2018 11:51 AM. CLINICAL HISTORY: Spleen infarct/laceration, bleeding. COMPARISONS: Abdomen/pelvis w/ 09/20/2018 1:22 PM CHEST ANGIO 09/20/2018 1:22 PM. TECHNIQUE: Routine helical CT imaging was performed through the abdomen and pelvis. IV contrast: OPTI 320 80ML. Enteric contrast: No. Reconstructions: Coronal and sagittal. In accordance with CT protocol optimization, one or more of the following dose reduction techniques were utilized for this exam: automated exposure control, adjustment of mA and/or KV based on patient size, or use of iterative reconstructive technique. FINDINGS: Lung Bases: Redemonstration of left pleural effusion, small to moderate in size as visualized. Small amount of left lung base consolidation as well as right middle lobe consolidation, not well seen on this study. Pleural fluid measures slightly greater than simple in density. Liver: Normal. No masses. Gallbladder/Bile Ducts: Unremarkable. Spleen: Normal, no infarct. Pancreas: Normal. Adrenal Glands: Mild symmetric thickening of adrenal glands, nonspecific. Kidneys: Normal. No masses or hydronephrosis. Peritoneal Cavity/Bowel: There is large volume ascites, Hounsfield units slightly greater than simple fluid. There is no bowel obstruction. There is no free air. There is no lymphadenopathy by size criteria. Pelvic Organs: Uterus and bladder are within normal limits as visualized. Vasculature: Atherosclerotic disease without abdominal aortic aneurysm. Bones: No significant abnormality. Other: None. IMPRESSION: Large-volume ascites, slightly greater than simple fluid in density, possibility of small quantity blood is not excluded. There is no josesito large-volume hemoperitoneum. No splenic infarct visualized today. Lung changes in the setting of known PE, better seen on recent CTA. RADIA
[2018-09-21] MEDS ORDERED: PIPERACILLIN/TAZOBACTAM 3.375 GM in SODIUM CHLORIDE 0.9% MINIBAG 100 ML IV SCH ×2 (12:30→16:30)
--- NOTE | 2018-09-21 13:48 | CONSULTATION NOTE ---
DATE OF SERVICE: 09/21/2018 Physician: Denver Osman MD REFERRING PROVIDER: COLLIN Webster CHIEF COMPLAINT: "My left knee hurts." HISTORY OF PRESENT ILLNESS: Patient is a 68-year-old female who was admitted to the [facility] for multiple medical issues. She apparently had a fall either from a syncopal spell or because he r legs "gave out on her." After the fall, she was noted to have some bruising and pain to her knee. Had some difficulty weightbearing on her extremity. No distal weakness and numbness noted. No prio r fractures noted. PHYSICAL EXAMINATION: On examination, her left knee does show some bruising in a diffuse pattern hiral und her left knee. To a lesser degree, also some mild bruising on the anterior aspect of her right k nee. Her area of maximal tenderness is overlying her proximal fibular head on the left knee. No eff usion appreciated. Ligaments appear to be stable on testing. Knee range of motion showed about 30 d egrees of knee flexion noted with mild pain. Neurovascularly intact distally. IMAGING: Review of x-rays that were taken previously shows a nondisplaced fibular head fracture, left knee. ASSESSMENT: Closed, minimally displaced left fibular head fracture. PLAN: I advised patient that she can work on active range of motion of the knee as tolerated. May w ork on weightbearing as tolerated on the extremity. Ordered physical therapy to assist in her walk o r ambulating weightbearing as tolerated on this extremity. Followup will be on an as-needed basis w ith probably an x-ray with her primary care provider in about a month to document healing of her frac ture radiographically. TD: 09/21/2018 13:45
--- NOTE | 2018-09-21 15:28 | Ultrasound Report ---
Reason: warm, bruise. pt has PE, if DVT? Procedure Date: 09/21/2018 Accession Number: [id number] / [id number] Procedure: US - Duplex Ext Veins Bilateral CPT Code: FULL RESULT: EXAM: BILATERAL LOWER EXTREMITY VENOUS ULTRASOUND EXAM DATE: 09/21/2018 03:07 PM. CLINICAL HISTORY: Warm, bruise. Patient has PE, if DVT?. COMPARISON: DUPLEX EXT VEINS BILATERAL 08/04/2018 12:38 PM. TECHNIQUE: Real-time sonographic vascular imaging was performed by the mechanical maintenance through the lower extremities utilizing both color-flow and Doppler spectral analysis. Multiple public service representative static images were saved for review. FINDINGS: Right: Common Femoral Vein (CFV): Normal. CFV-GSV Junction: Normal. Profunda Femoral Vein (PFV): Normal. Femoral Vein (FV) Prox: Near occlusive thrombus. Femoral Vein (FV) Mid: Near occlusive thrombus. Femoral Vein (FV) Dist: Near occlusive thrombus. Popliteal Vein: Near occlusive thrombus. Left: Common Femoral Vein (CFV): Normal. CFV-GSV Junction: Normal. Profunda Femoral Vein (PFV): Normal. Femoral Vein (FV) Prox: Occlusive thrombus. Femoral Vein (FV) Mid: Occlusive thrombus. Femoral Vein (FV) Dist: Occlusive thrombus. Popliteal Vein: Normal. Calf veins could not be adequately visualized due to edema. Other: None. IMPRESSION: Extensive bilateral occlusive and nonocclusive thrombosis. Given extensive long segment occlusive and nonocclusive bilateral lower extremity DVT extending towards the pelvis, endovascular intervention should be considered. CRITICAL RESULT: The findings were discussed with Dick on 09/21/2018 at approximally 3:30 PM. RADIA
[2018-09-21 15:59] VITALS: BP 100/74
--- NOTE | 2018-09-21 17:52 | DISCHARGE SUMMARY ---
"Discharge Summary Admit Date: 09/20/18 Discharge Date: 09/21/18 Discharging Provider: VANN Condition at Discharge: Serious Discharge Disposition: 02 Transfer Acute Care Hosp [facility] - DIAGNOSES Admission Diagnoses: (1) Pulmonary embolism (2) Spleen disease (3) Altered mental status (4) Alcoholic cirrhosis (5) Pneumonia (6) Left fibular fracture (7) COPD (chronic obstructive pulmonary disease) (8) Tobacco use disorder, continuous (9) Anasarca Discharge Diagnoses with Status of Each Condition: (1) Pulmonary embolism on heparin drip, transfer to [facility] for high level of care (2) Spleen disease stable, from new CT today (3) Altered mental status improved (4) Alcoholic cirrhosis stable (5) Pneumonia stable (6) Left fibular fracture stable (7) COPD (chronic obstructive pulmonary disease) stable (8) Tobacco use disorder, continuous stable (9) Anasarca stable (10) extensive occlusive and nonocclusive bilateral lower extremity DVT on heparin drip, transfer to [facility] for high level of care - HPI History of Present Illness: Ms. 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 she report she was getting up to go to the bathroom or come back from the bathroom and her legs gave out from her. She fell back and she believed injury of her left leg and head and back. CT of head, throacic, lumbar, head, chest, cervical, pelvis reveals no acute fracture. Left knee Xray reveals oblique fracture of the proximal left fibula. CTA of chest reveals bilateral pulmonary emboli to all lobes. pt's PESI score is 140 points, class V, very high risk with up to a 24.5% 30-day mortality . Heparin drip was initiated in ER for pt. Per ER provider report, radiologist called ER, radiologist thought that pt had the little splenic lesion, it was probably an infarct but could not rule out a small splenic laceration, But pt has already been started on heparin at the time. For this reason, surgeon was called and consulted. she denies rectal GI bleed, nausea, vomiting, chest pain, fever, chill, headache, vision change. Pt request full code at the time for admission. I discussed with pt, pt's and pt's daughter about pt's medical conditions. pt and her family did understand she is on very serious medical conditions including, but not limited, alcoholic cirrhosis with ascites, advanced COPD and pneumonia with current cigarette smoking, PE in all her lung lobes, little splenic lesion with probably an infarct but could not rule out a small splenic laceration for risk of bleeding. Pt state her family will discuss her code status, now she request full code. - CONSULTS | PROCEDURES Consultations: Dr. Garcia GI surgeon. Dr. Osman, orthopedics Procedures: no procedure - HOSPITAL COURSE Hospital Course: pt was admitted for fall and pre-syncope. pt was found to have left fibular fracture, PE was in all her bilateral lung lobes. Today pt was found to have extensive occlusive and nonocclusive bilateral lower extremity DVT. Pt likely need vascular surgeon to mange her. [facility] Hospitalist Dr. andujar accepted pt for high level of care (1) Pulmonary embolism CTA reveals pt has PE in all her lung lobe. pt is on heparin drip, transfer to [facility] for high level of care (2) Spleen disease stable, from new CT today (3) Altered mental status improved (4) Alcoholic cirrhosis with large asites pt has long hx of alcohol abuse. liver cirrhosis with large asites present at pt's CT. antibiotics Zosyn is prescribed prevention of peritionitis (5) Pneumonia pt was treated with antibiotics Zosyn (6) Left fibular fracture stable, consulted with orthopedics, no surgery was recommended by orthopedics (7) COPD (chronic obstructive pulmonary disease) stable, pt is still tobacco smoker (8) Tobacco use disorder, continuous pt report she still smoke about one pack per day (9) Anasarca mild to moderate anasarca, transfer to [facility] for high level of care (10) extensive occlusive and nonocclusive bilateral lower extremity DVT on heparin drip, transfer to [facility] for high level of care - ALLERGIES Allergies/Adverse Reactions: Allergies Allergy/AdvReac Type Severity Reaction Status Date / Time Latex, Natural Rubber Allergy Rash Verified 09/20/18 11:45 lisinopril Allergy Respiratory Verified 09/20/18 11:45 - MEDICATIONS Home Medications: Ambulatory Orders Medication Instructions Recorded Confirmed Albuterol Sulfate [Albuterol 2 puffs IH Q4H PRN #1 hfa.aer.ad 08/11/18 09/21/18 Sulfate Hfa] Fluticasone/Salmeterol [Advair 1 each IH BID #1 blst.w.dev 08/11/18 09/21/18 250-50 Diskus] Lactulose [Constulose] 10 gm PO TID #90 solution 08/11/18 09/21/18 Magnesium Oxide [Mag Ox] 400 mg PO DAILY #30 tablet 08/11/18 09/21/18 Tiotropium [place] [Spiriva] 1 puffs INH DAILY 30 Days #30 each 08/11/18 09/21/18 levoFLOXacin [Levofloxacin] 500 mg PO DAILY #5 tablet 08/11/18 09/21/18 Furosemide [Lasix] 20 mg PO DAILY #20 tablet 08/15/18 09/21/18 Montelukast [Singulair] 10 mg PO QPM 09/21/18 09/21/18 Propranolol [Inderal] 5 mg PO BID 09/21/18 09/21/18 Spironolactone 25 mg PO DAILY 09/21/18 09/21/18 Wheat Dextrin [Benefiber] 1 each PO DAILY 09/21/18 09/21/18 guaiFENesin [Mucinex] 600 mg PO BID 09/21/18 09/21/18 - PHYSICAL EXAM AT DISCHARGE General Appearance: positive: Alert, Mild distress. negative: Lethargic Eyes Bilateral: positive: Normal inspection, PERRL, No lid inflammation, Conjunctivae nml, No scleral icterus ENT: positive: ENT inspection nml, Pharynx nml, No signs of dehydration. negative: Purulent nasal drainage, Pharyngeal erythema Neck: positive: Nml inspection, Thyroid nml, No JVD, Trachea midline. negative: Thyromegaly, Stiff neck, Tracheal deviation Respiratory: positive: Chest non-tender. negative: No respiratory distress, Breath sounds nml, Wheezes, Rales Cardiovascular: positive: Regular rate & rhythm, No murmur, No gallop. negative: Irregularly irregular, Extrasystoles, Tachycardia, Bradycardia, JVD present, Systolic murmur, Diastolic murmur Peripheral Pulses: positive: 2+ Abdomen: positive: Non-tender, No organomegaly. negative: No distention, Tenderness, Guarding, Rebound Back: positive: Nml inspection. negative: CVA tenderness (R), CVA tenderness (L) Skin: positive: Warm, Dry. negative: Cyanosis, Diaphoresis, Pallor Extremities: positive: Non-tender. negative: Calf tenderness, Eleanor's sign/cords Neurologic/Psychiatric: positive: Oriented x3, Sensation nml. negative: Weakness, Sensory loss, Facial droop, Slurred/abnml speech, Depressed mood/affect - LABS Result Diagrams: 09/21/18 11:52 09/21/18 04:55 - FOLLOW UP Follow Up: pt's conditions were reported to [facility] hospitalist Dr. Andujar, pt is transferred to [facility] for high level of care - TIME SPENT Time Spent in Discharge (Minutes): 50"
[2018-09-21] MEDS ORDERED: HEPARIN 25000UNITS/500ML (D5W) 25,000 UNIT/500 ML BAG IV STA (18:17)
== END 2018-09-21 19:45 | disposition short-term general hospital (02) | DRG 175 ==
LOC: EDUNIT# → ED 11:39 → MS2 14:58
PROVIDERS: ADMIT Nurse Practitioner Gerontology; ATTEND Nurse Practitioner Gerontology
DX: I26.99 Other pulmonary embolism without acute cor pulmonale (principal); J18.9 Pneumonia, unspecified organism; R93.5 Abnormal findings on diagnostic imaging of other abdominal regions, including retroperitoneum; I82.413 Acute embolism and thrombosis of femoral vein, bilateral; S09.90XA Unspecified injury of head, initial encounter; S40.012A Contusion of left shoulder, initial encounter; S80.12XA Contusion of left lower leg, initial encounter; I82.431 Acute embolism and thrombosis of right popliteal vein; I74.8 Embolism and thrombosis of other arteries; K70.31 Alcoholic cirrhosis of liver with ascites; R25.2 Cramp and spasm; J43.9 Emphysema, unspecified; F10.10 Alcohol abuse, uncomplicated; C50.919 Malignant neoplasm of unspecified site of unspecified female breast; M81.0 Age-related osteoporosis without current pathological fracture; I11.0 Hypertensive heart disease with heart failure; F17.200 Nicotine dependence, unspecified, uncomplicated; I50.9 Heart failure, unspecified; R55 Syncope and collapse; Z86.718 Personal history of other venous thrombosis and embolism; Z87.898 Personal history of other specified conditions; R09.02 Hypoxemia; R41.82 Altered mental status, unspecified; K72.90 Hepatic failure, unspecified without coma; S82.832A Other fracture of upper and lower end of left fibula, initial encounter for closed fracture; W18.39XA Other fall on same level, initial encounter; Y92.009 Unspecified place in unspecified non-institutional (private) residence as the place of occurrence of the external cause; M48.061 Spinal stenosis, lumbar region without neurogenic claudication; M54.16 Radiculopathy, lumbar region; G89.29 Other chronic pain; M21.371 Foot drop, right foot; F17.210 Nicotine dependence, cigarettes, uncomplicated; I25.2 Old myocardial infarction; Z79.899 Other long term (current) drug therapy; Z79.51 Long term (current) use of inhaled steroids; Z79.811 Long term (current) use of aromatase inhibitors; Z92.21 Personal history of antineoplastic chemotherapy
CPT/HCPCS: 36415; 70450; 71275; 72125; 72128; 72131; 73564; 74177; 80053; 81001; 82140; 82272; 82274; 83605; 83690; 83735; 83880; 84484; 85014; 85018; 85025; 85520; 85610; 86850; 86900; 86901; 87205; 93005; 93970; 94640; 96374; 96376; 99285; A9270; J7626; Q9967; 80320; 85027; 87070; 87086

== ENCOUNTER 2019-04-03 13:13 | Outpatient (CLI) | payer MEDICARE, OTHER ==
--- NOTE | 2019-04-09 12:54 | Mammography Report ---
Reason: ROUTINE MAMMO Procedure Date: 04/03/2019 Accession Number: [id number] / [id number] Procedure: MGN - Screening Mammo w/[place] CPT Code: Final Report FULL RESULT: EXAM: Screening Mammo w/[place] DATE: 04/03/2019 1:49 PM CLINICAL HISTORY: Screening encounter. History of late childbearing. Personal history of breast cancer status post chemoradiation in 2011 with left breast lumpectomy. TECHNIQUE: (B) - Bilateral CC and MLO views were obtained. COMPARISON: 04/16/2015 through 11/18/2011. PARENCHYMAL PATTERN: (D) - The breast(s) demonstrate(s) heterogeneously dense fibroglandular parenchyma. FINDINGS: Posttreatment changes in the left breast are stable. There are no suspicious masses, calcifications, or areas of distortion. IMPRESSION: Benign findings. BI-RADS category 2. RECOMMENDATION: (ANNUAL) - Recommend routine annual screening mammography. BI-RADS CATEGORY: (2) - Benign Findings. STANDARD QUALIFYING STATEMENTS: 1. This examination was not reviewed with the aid of Computer-Aided Detection (CAD). 2. A negative or benign imaging report should not preclude biopsy if clinically suspicious findings are present. 3. Dense breasts may obscure an underlying neoplasm. 4. This examination was reviewed with the aid of 3D breast imaging (tomosynthesis).
== END 2019-04-03 13:14 | disposition home or self-care (01) ==
LOC: DI.N 13:13
DX: Z12.31 Encounter for screening mammogram for malignant neoplasm of breast (principal); Z85.3 Personal history of malignant neoplasm of breast; Z92.3 Personal history of irradiation; Z92.21 Personal history of antineoplastic chemotherapy
CPT/HCPCS: 77063; 77067

== ENCOUNTER 2019-08-24 02:41 | Inpatient (IN) | payer MEDICARE, OTHER ==
--- NOTE | 2019-08-24 03:01 | ED Physician Documentation ---
PD HPI DYSPNEA - Stated complaint Stated Complaint: SOA - Chief complaint Chief Complaint: Resp - History obtained from History obtained from: Patient - History of Present Illness Timing - onset: How many days ago (3) Timing - details: Gradual onset, Waxing and waning Pain level max: 0 Pain level now: 0 Improved by: Rest Worsened by: Exertion, Coughing Associated symptoms: Cough, Wheezing. No: Fever, Chest pain / discomfort, Bilateral edema, Unilateral edema Similar symptoms before: Diagnosis (copd, pneumonia) Recently seen: Not recently seen - Additional information Additional information: c/o 3 days of gradually worsening dyspnea and increasingly frequent cough. 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 She does not use oxygen at home. Review of Systems Constitutional: denies: Fever, Chills, Sweats Eyes: reports: Reviewed and negative Ears: reports: Reviewed and negative Nose: reports: Reviewed and negative Throat: reports: Reviewed and negative Cardiac: reports: Reviewed and negative Respiratory: reports: Dyspnea, Cough, Wheezing. 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: Other - Present Medications Home Medications: Ambulatory Orders Medication Instructions Recorded Confirmed Albuterol Sulfate [Albuterol 2 puffs IH Q4H PRN #1 hfa.aer.ad 08/11/18 09/21/18 Sulfate Hfa] Tiotropium [place] [Spiriva] 1 puffs INH DAILY 30 Days #30 each 08/11/18 09/21/18 Montelukast [Singulair] 10 mg PO QPM 09/21/18 09/21/18 Propranolol [Inderal] 10 mg PO BID 09/21/18 09/21/18 Spironolactone 25 mg PO BID 09/21/18 09/21/18 Warfarin Sodium [Coumadin] 5 mg PO DAILY 08/24/19 - Allergies Allergies/Adverse Reactions: Allergies Allergy/AdvReac Type Severity Reaction Status Date / Time Latex, Natural Rubber Allergy Rash Verified 09/20/18 11:45 lisinopril Allergy Respiratory Verified 09/20/18 11:45 - Social History Does the pt smoke?: Yes Smoking Status: Current every day smoker Does the pt drink ETOH?: Yes Does the pt have substance abuse?: No - Immunizations Immunizations are current?: Yes - POLST Patient has POLST: No POLST Status: Full Code PD ED PE NORMAL - Vitals Vital signs reviewed: Yes - General General: Alert and oriented X 3, Well developed/nourished, Other (tachypneic, sitting over edge of bed. speaking in parsed sentences (2-3 words)) - HEENT HEENT: Moist mucous membranes - Neck Neck: Supple, no meningeal sign - Cardiac Cardiac: No murmur - Abdomen Abdomen: Soft, Non tender - Derm Derm: Normal color, Warm and dry - Extremities Extremities: No edema - Neuro Neuro: Alert and oriented X 3 Eye Opening: Spontaneous Motor: Obeys Commands Verbal: Oriented GCS Score: 15 PD ED PE EXPANDED - Cardiac Cardiac: Tachy, Regular Rhythm - Respiratory Respiratory: Wheezing, Decreased breath sounds Results - Vitals Vitals: Vital Signs - 24 hr 08/24/19 08/24/19 08/24/19 02:53 02:59 03:02 Temperature 36.1 C L Heart Rate 108 H 95 Respiratory 26 H 22 Rate Blood Pressure 158/115 H 171/39 H O2 Saturation 85 L 96 93 08/24/19 08/24/19 08/24/19 04:06 04:20 04:23 Temperature Heart Rate 87 88 Respiratory 14 22 Rate Blood Pressure 129/76 O2 Saturation 92 94 08/24/19 08/24/19 05:03 05:09 Temperature Heart Rate 81 87 Respiratory 13 20 Rate Blood Pressure 137/99 H O2 Saturation 93 Oxygen O2 Source Nasal cannula Oxygen Flow Rate 3 - EKG (time done) No standard instances Rate: Rate (enter#) (87) Rhythm: NSR [place]: Normal Intervals: Normal [place] QRS: Normal Ischemia: Normal ST segments, Q waves (V2, V3) - Labs Labs: Laboratory Tests 08/24/19 08/24/19 08/24/19 03:30 03:30 03:30 WBC 11.7 H RBC 5.39 Hgb 17.8 H Hct 52.7 H MCV 97.8 MCH 33.0 H MCHC 33.8 RDW 15.3 H Plt Count 228 MPV 10.3 Neut # (Auto) 9.3 H Lymph # (Auto) 1.2 L Rankin # (Auto) 0.8 Eos # (Auto) 0.2 Baso # (Auto) 0.1 Absolute Nucleated RBC 0.00 Nucleated RBC % 0.0 PT 24.4 H INR 2.2 H APTT 53.1 H Sodium 136 Potassium 4.2 Chloride 99 L Carbon Dioxide 27 Anion Gap 10.0 BUN 7 Creatinine 0.4 Estimated GFR (MDRD) 157 Glucose 94 Lactic Acid Calcium 8.9 Total Bilirubin 0.7 AST 25 ALT 13 Alkaline Phosphatase 104 B-Natriuretic Peptide Total Protein 7.7 Albumin 4.0 Globulin 3.7 Albumin/Globulin Ratio 1.1 Lipase 48 08/24/19 08/24/19 03:30 03:30 WBC RBC Hgb Hct MCV MCH MCHC RDW Plt Count MPV Neut # (Auto) Lymph # (Auto) Rankin # (Auto) Eos # (Auto) Baso # (Auto) Absolute Nucleated RBC Nucleated RBC % PT INR APTT Sodium Potassium Chloride Carbon Dioxide Anion Gap BUN Creatinine Estimated GFR (MDRD) Glucose Lactic Acid 1.1 Calcium Total Bilirubin AST ALT Alkaline Phosphatase B-Natriuretic Peptide 45 Total Protein Albumin Globulin Albumin/Globulin Ratio Lipase - Rads (name of study) chest xray Radiology: Prelim report reviewed, See rad report PD MEDICAL DECISION MAKING - ED course Complexity details: reviewed old records, reviewed results, re-evaluated patient, considered differential, d/w patient ED course: improved with duoneb followed by 2 albuterol nebs. also given IV decadron. Her pulse ox continued to drop to 88-90 when on room air after these interventions Departure - Departure Disposition: ED Place in Observation Clinical Impression: COPD exacerbation Dyspnea Qualifiers: Dyspnea type: unspecified Qualified Code(s): R06.00 - Dyspnea, unspecified Condition: Stable Discharge Date/Time: 08/24/19 06:23
[2019-08-24] MEDS ORDERED: IPRATROPIUM/ALBUTEROL 3 ML NEB INH STA (03:19)
[2019-08-24] MEDS ORDERED: DEXAMETHASONE 10 MG/ML VIAL IVP STA (03:24)
[2019-08-24 03:44] LABS: BASOPHILS # (AUTO) 0.1 10^3/uL (0.0-0.1); BASOPHILS % (AUTO) 1.2 %; EOSINOPHILS # (AUTO) 0.2 10^3/uL (0.0-0.7); EOSINOPHILS % (AUTO) 1.5 %; HGB - HEMOGLOBIN 17.8 g/dL (12.0-16.0); LYMPHOCYTES # (AUTO) 1.2 10^3/uL (1.5-3.5); LYMPHOCYTES % (AUTO) 9.9 %; MEAN CORPUSCULAR HGB CONC 33.8 g/dL (32.0-36.0); MEAN CORPUSCULAR VOLUME 97.8 fL (81.0-99.0); MEAN PLATELET VOLUME 10.3 fL (7.9-10.8); MONOCYTES # (AUTO) 0.8 10^3/uL (0.0-1.0); MONOCYTES % (AUTO) 7.1 %; NEUTROPHILS # (AUTO) 9.3 10^3/uL (1.5-6.6); NEUTROPHILS % (AUTO) 79.8 %; PLT - PLATELET COUNT 228 10^3/uL (130-450); RED BLOOD COUNT 5.39 10^6/uL (4.20-5.40); RED CELL DISTRIBUTION WIDTH 15.3 % (12.0-15.0); WHITE BLOOD COUNT 11.7 x10^3/uL (4.8-10.8)
[2019-08-24 03:49] LABS: INR 2.2 (0.8-1.2); PT - PROTHROMBIN TIME 24.4 secs (9.9-12.6)
[2019-08-24 03:56] LABS: ALBUMIN/GLOBULIN RATIO 1.1 (1.0-2.2); BILIRUBIN,TOTAL 0.7 mg/dL (0.2-1.0); CALCIUM 8.9 mg/dL (8.5-10.3); CREATININE 0.4 mg/dL (0.4-1.0); PARTIAL THROMBOPLASTIN TIME 53.1 secs (24.9-33.3); TOTAL PROTEIN 7.7 g/dL (6.7-8.2)
[2019-08-24] MEDS ORDERED: ALBUTEROL NEB 2.5 MG/3 ML INH STA ×2 (04:21)
--- NOTE | 2019-08-24 05:45 | HISTORY & PHYSICAL EXAMINATION ---
Chief Complaint - Chief Complaint Chief Complaint: dyspnea History of Present Illness - Admitted From Admitted From:: [facility] - History Obtained From Records Reviewed: yes History obtained from: patient - History of Present Illness HPI Comment/Other: Patient is a 69-year-old female with history of COPD, alcoholic liver cirrhosis and hypertension who presented to the ED with complaint of dyspnea. Symptoms have been going on for the past 3 days but were worse last night when she woke up to go to the bathroom. As a result has called EMS who brought her to the ED. Upon arrival her oxygen saturation was 85% on room air. With 2 L of oxygen it improved to 93%. She does not use oxygen at home. The patient thinks her COPD was exacerbated by a change in the weather and pollens around. At the time of my evaluation she reported market improvement in her symptoms however she still has some chest tightness. She has been coughing up yellowish sputum. She denied fever or chills. She denied abdominal pain however she gets nauseous after prolonged period of coughing. 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 He from metastasis to the brain. Mother had respiratory problems from . She in 2004 from complications of respiratory disease. - Substance History Use: Uses substance without health or social issues: Tobacco - POLST Patient has POLST: No POLST Status: Full Code Meds/Allgy - Home Medications Home Medications: Ambulatory Orders Medication Instructions Recorded Confirmed Albuterol Sulfate [Albuterol 2 puffs IH Q4H PRN #1 hfa.aer.ad 08/11/18 08/24/19 Sulfate Hfa] Tiotropium [place] [Spiriva] 1 puffs INH DAILY 30 Days #30 each 08/11/18 08/24/19 Montelukast [Singulair] 10 mg PO QPM 09/21/18 08/24/19 Propranolol [Inderal] 10 mg PO BID 09/21/18 08/24/19 Spironolactone 25 mg PO BID 09/21/18 08/24/19 Fluticasone/Salmeterol [Advair 1 inh PO BID 08/24/19 08/24/19 250-50 Diskus] Furosemide 40 mg PO DAILY 08/24/19 08/24/19 Lactulose [Generlac] 10 gm PO TID 08/24/19 08/24/19 Omeprazole 20 mg PO DAILY 08/24/19 08/24/19 Warfarin Sodium [Coumadin] 2.5 mg PO SUMO 08/24/19 08/24/19 Warfarin Sodium [Coumadin] 5 mg PO WETHFRSA 08/24/19 08/24/19 - Allergies Allergies/Adverse Reactions: Allergies Allergy/AdvReac Type Severity Reaction Status Date / Time Latex, Natural Rubber Allergy Rash Verified 09/20/18 11:45 lisinopril Allergy Respiratory Verified 09/20/18 11:45 Review of Systems - Constitutional Constitutional: denies: Fatigue, Fever - Eyes Eyes: denies: Pain - Ears, Nose & Throat Ears, Nose & Throat: denies: Ear pain, Vertigo - Cardiovascular Cariovascular: denies: Palpitations, Chest pain, Edema - Respiratory Respiratory: reports: Cough, Sputum production (yellowish), SOB at rest - Gastrointestinal Gastrointestinal: denies: Abdominal pain, Abdominal distention, Nausea, Vomiting - Genitourinary Genitourinary: denies: Dysuria, Frequency - Musculoskeletal Musculoskeletal: denies: Muscle pain, Back pain - Integumentary Integumentary: denies: Rash, Pruritis - Neurological Neurological: denies: General weakness, Headache, Dizziness - Psychiatric Psychiatric: denies: Depression, Anxiety - Endocrine Endocrine: denies: Polyuria, Polydypsia - Hematologic/Lymphatic Hematologic/Lymphatic: denies: Anemia, Bruising Prior Level of Functionality: Patient is independent for activities of daily living Exam - Vital Signs Vital Signs: Vital Signs x48h Temp Pulse Resp BP Pulse Ox 08/24/19 05:43 92 20 140/82 H 93 08/24/19 05:09 87 20 137/99 H 93 08/24/19 05:03 81 13 08/24/19 04:23 88 22 08/24/19 04:20 94 08/24/19 04:06 87 14 129/76 92 08/24/19 03:02 95 22 171/39 H 93 08/24/19 02:59 96 08/24/19 02:53 36.1 C L 108 H 26 H 158/115 H 85 L - Physical Exam General Appearance: positive: Alert, Moderate distress (respiratory) Eyes Bilateral: positive: PERRL, EOMI ENT: positive: No signs of dehydration Neck: positive: No JVD, Trachea midline Respiratory: positive: Chest non-tender, Other (decreased air movement.) Cardiovascular: positive: Regular rate & rhythm, No murmur Abdomen: positive: Non-tender, No organomegaly, Nml bowel sounds, No distention Back: positive: Nml inspection Skin: positive: Color nml, Warm, Dry Extremities: positive: Non-tender, Full ROM, Nml appearance, No pedal edema Neurologic/Psychiatric: positive: Oriented x3, Mood/affect nml Conclusion/Plan - Problem List (1) COPD exacerbation Conclusion/Plan: Patient given a dose of dexamethasone in the ED. She also received a breathing treatment. Solu-Medrol 125 mg IV 3 times daily ordered. Albuterol inhaler 2 puffs every 4 hours PRN ordered. COVID-19 testing pending. When COVID-[address] patient on DuoNeb treatments. Continue supplemental oxygen. (2) History of pulmonary embolism Conclusion/Plan: On Coumadin. Will resume once verified INR is 2.2. (3) Alcoholic cirrhosis Conclusion/Plan: Patient is on lactulose 10 g 3 times daily. Patient has also been on Lasix and spironolactone in the past due to ascites due to cirrhosis. Will resume once verified (4) Hypertension Conclusion/Plan: On propanolol - Lab Results Fish Bones: 08/24/19 03:30 08/24/19 03:30 Core Measures - Anticipated LOS I expect patient to be DC'd or transferred within 96 hours.: Yes - DVT/VTE - Prophylaxis VTE/DVT Device ordered at admit?: Yes VTE/DVT Prophylaxis med ordered at admit?: Yes
--- NOTE | 2019-08-24 08:29 | XRAY Report ---
PROCEDURE: Chest 2 View X-Ray INDICATIONS: cough, dyspnea TECHNIQUE: 2 view(s) of the chest. COMPARISON: None. FINDINGS: Surgical changes and devices: Clips are noted overlying the left mid lung. Lungs and pleura: No pleural effusions or pneumothorax. Lungs are clear. Some of this changes are present. Mediastinum: Mediastinal contours are normal. Heart size is normal. Bones and chest wall: No suspicious bony abnormalities. Soft tissues appear unremarkable. IMPRESSION: No acute pulmonary process. The above findings are concordant with preliminary report. Reviewed by: Berna Green MD on 08/24/2019 8:28 AM PDT Approved by: Berna Green MD on 08/24/2019 8:28 AM PDT Station ID: [id number]
[2019-08-24] MEDS: guaiFENesin 600 MG TABLET PO SCH ×2 (08:44→21:55)
[2019-08-24] MEDS: NICOTINE 14 MG PATCH TOP SCH (08:45)
[2019-08-24] MEDS: SODIUM CHLORIDE FLUSH 0.9% 10 ML SYRINGE IVP SCH ×2 (08:46→16:49)
[2019-08-24] MEDS ORDERED: PROPRANOLOL 10 MG TABLET PO SCH (09:00)
[2019-08-24] MEDS: methylPREDNISolone SUCCINATE 125 MG/2 ML VIAL IVP SCH ×3 (10:35→21:56)
[2019-08-24] MEDS: SODIUM CHLORIDE FLUSH 0.9% 10 ML SYRINGE IVP PRN ×2 (10:36→13:57)
[2019-08-24] MEDS ORDERED: oxyCODONE 5 MG TABLET PO PRN (11:06)
[2019-08-24] MEDS: ACETAMINOPHEN 325 MG TABLET PO PRN (11:11)
[2019-08-24] MEDS: ALBUTEROL 1 PUFF INH PRN ×2 (11:43→20:24)
--- NOTE | 2019-08-24 11:46 | PHARMACY PROGRESS NOTE ---
- Best Possible Medication History Admit Date and Time: 08/24/19 0525 Processed by: Pharmacy Medication History completed: Yes Patient Interview: Completed Secondary Source(s): Written medication list (PATIENT HAS LIST OF HER MEDICATIONS), Insurance records As the person ultimately responsible for medication therapy, providers are able to order a medication from an existing home medication list in [facility] via the "Reconcile Routine" prior to Confirmation of that medication by telecommunications support. Such practice is discouraged except when the physician, in their clinical judgment, deems that a medical need exists for a medication without regard to previous use.
[2019-08-24] MEDS: PRENATAL VITAMIN TABLET PO SCH (12:07)
[2019-08-24] MEDS: WARFARIN 5 MG TABLET PO SCH (16:49)
[2019-08-24] MEDS: PROPRANOLOL 10 MG TABLET PO SCH (21:55)
[2019-08-24] MEDS: MONTELUKAST 10 MG TABLET PO SCH (21:55)
[2019-08-25] MEDS: ALBUTEROL 1 PUFF INH PRN ×2 (00:34→12:50)
[2019-08-25] MEDS: ACETAMINOPHEN 325 MG TABLET PO PRN ×2 (01:29→08:53)
[2019-08-25] MEDS: guaiFENesin/DEXTROMETHORPHAN 10 ML UDC PO PRN ×3 (01:29→22:50)
[2019-08-25] MEDS: SODIUM CHLORIDE FLUSH 0.9% 10 ML SYRINGE IVP SCH ×3 (01:29→17:14)
[2019-08-25] MEDS: methylPREDNISolone SUCCINATE 125 MG/2 ML VIAL IVP SCH (05:50)
[2019-08-25] MEDS: SODIUM CHLORIDE FLUSH 0.9% 10 ML SYRINGE IVP PRN ×2 (05:50→21:20)
[2019-08-25 06:24] LABS: BASOPHILS % (AUTO) 0.2 %; EOSINOPHILS % (AUTO) 0.1 %; LYMPHOCYTES # (AUTO) 0.7 10^3/uL (1.5-3.5); LYMPHOCYTES % (AUTO) 4.8 %; MEAN CORPUSCULAR HEMOGLOBIN 32.6 pg (27.0-31.0); MEAN CORPUSCULAR HGB CONC 33.1 g/dL (32.0-36.0); MEAN CORPUSCULAR VOLUME 98.4 fL (81.0-99.0); MEAN PLATELET VOLUME 10.5 fL (7.9-10.8); MONOCYTES # (AUTO) 0.5 10^3/uL (0.0-1.0); MONOCYTES % (AUTO) 3.3 %; NEUTROPHILS # (AUTO) 13.2 10^3/uL (1.5-6.6); PLT - PLATELET COUNT 213 10^3/uL (130-450); RED BLOOD COUNT 4.91 10^6/uL (4.20-5.40); RED CELL DISTRIBUTION WIDTH 15.2 % (12.0-15.0); WHITE BLOOD COUNT 14.5 x10^3/uL (4.8-10.8)
[2019-08-25 06:27] LABS: INR 1.6 (0.8-1.2); PT - PROTHROMBIN TIME 17.7 secs (9.9-12.6)
[2019-08-25 06:32] LABS: CALCIUM 8.6 mg/dL (8.5-10.3); CREATININE 0.4 mg/dL (0.4-1.0)
[2019-08-25] MEDS: PRENATAL VITAMIN TABLET PO SCH (07:47)
[2019-08-25] MEDS: NICOTINE 14 MG PATCH TOP SCH (08:53)
[2019-08-25] MEDS: PROPRANOLOL 10 MG TABLET PO SCH ×2 (08:53→21:15)
[2019-08-25] MEDS: WARFARIN 5 MG TABLET PO SCH (17:14)
--- NOTE | 2019-08-25 18:21 | PROVIDER PROGRESS NOTE ---
Assessment/Plan - Problem List (1) COPD exacerbation Assessment/Plan: Solu-Medrol 125 mg IV 3 times daily ordered. This is the likely reason for rising WBC from 11 to 14 today. She is also on Singulair and at bedtime, Mucinex for cough Albuterol inhaler 2 puffs every 4 hours PRN ordered. COVID-19 testing is still; pending. When COVID-[address] patient on DuoNeb treatments. Continue supplemental oxygen. (2) History of pulmonary embolism Assessment/Plan: On Coumadin. Follow INR daily. Target is 2-3 (3) Alcoholic cirrhosis Assessment/Plan: Patient is on lactulose 10 g 3 times daily. Patient has also been on Lasix and spironolactone in the past due to ascites due to cirrhosis. (4) Hypertension Assessment/Plan: On propanolol, continue (5) Tobacco use Assessment/Plan: Teen patch has been ordered to use while here - Current Meds Current Meds: Current Medications Generic Name Dose Route Start Last Admin Trade Name Freq PRN Reason Stop Dose Admin Acetaminophen 650 mg 08/24/19 11:06 08/25/19 08:53 Tylenol PO 650 mg Q4HR PRN Administration Pain or Fever > 38C (100.4F) Albuterol 2 puffs 08/24/19 05:31 08/25/19 12:50 Mdi: Albuterol INH 2 puffs Q4H PRN Administration Dyspnea Guaifenesin 10 ml 08/25/19 00:52 08/25/19 08:53 Robitussin Dm PO 10 ml Q6HR PRN Administration Cough Montelukast Sodium 10 mg 08/24/19 21:00 08/24/19 21:55 Singulair PO 10 mg QPM FELIBERTO Administration Nicotine 1 patch 08/24/19 09:00 08/25/19 08:53 Nicoderm TOP 1 patch DAILY FELIBERTO Administration Multivit/Folic Acid/Iron 1 tab 08/24/19 12:00 08/25/19 07:47 Trinatal Rx 1 PO 1 tab DAILYWM FELIBERTO Administration Propranolol HCl 10 mg 08/24/19 21:00 08/25/19 08:53 Inderal PO 10 mg BID FELIBERTO Administration Sodium Chloride 10 ml 08/24/19 05:25 08/25/19 05:50 Normal Saline Flush 0.9% IVP 10 ml PRN PRN Administration NEEDED PER PROVIDER ORDERS Sodium Chloride 10 ml 08/24/19 09:00 08/25/19 17:14 Normal Saline Flush 0.9% IVP 10 ml 0100,0900,1700 [facility] Administration Warfarin Sodium 5 mg 08/24/19 17:00 08/25/19 17:14 Coumadin PO 5 mg [id number] FELIBERTO Administration - Lab Result Fish Bone Diagrams: 08/25/19 06:10 08/25/19 06:10 Subjective - Subjective Patient Reports: Shortness of Breath, Other (When her nurse turned down supplemental oxygen from 2 L to 1 L, she was short of breath for many hours after that) Objective Vital Signs: Vital Signs - 24 hr 08/24/19 08/24/19 08/25/19 20:25 20:48 00:05 Temperature 36.8 C 36.6 C Heart Rate 85 Heart Rate [ 88 79 Brachial] Respiratory 18 18 20 Rate Blood Pressure 106/63 138/72 H [Right Brachial artery] O2 Saturation 95 95 08/25/19 08/25/19 08/25/19 00:35 05:47 05:50 Temperature 36.7 C Heart Rate 71 Heart Rate [ 72 Brachial] Respiratory 18 16 Rate Blood Pressure 104/72 [Right Brachial artery] O2 Saturation 100 97 08/25/19 08/25/19 08/25/19 08:16 12:50 13:59 Temperature 36.6 C 36.6 C Heart Rate 80 Heart Rate [ 80 73 Brachial] Respiratory 20 20 20 Rate Blood Pressure 105/59 L 118/64 [Right Brachial artery] O2 Saturation 98 97 08/25/19 17:33 Temperature 36.4 C L Heart Rate Heart Rate [ 89 Brachial] Respiratory 18 Rate Blood Pressure 126/70 [Right Brachial artery] O2 Saturation 92 Oxygen O2 Source Nasal cannula Oxygen Flow Rate 3 I&O (Last 24 Hrs): Intake and Output Totals x24h 08/23/19 08/24/19 08/25/19 23:59 23:59 23:59 Intake Total 1600 1000 Balance 1600 1000 General: Alert, Oriented x3 HEENT: Mucous membr. moist/pink, Other (Cachectic, cyanotic lips) Neck: Supple, Other ((+) JVD at 90 degree angle) Neuro: Alert, Non Focal Cardiovascular: Regular rate, No murmurs Respiratory: Other (Increased AP diameter, prolonged expiration, no wheezes or rales) Abdomen: Soft Extremities: No edema, Other (Thin) Skin: No rashes (Tanned and very leathery skin of face and arms.) - Results Results: Laboratory Results WBC 14.5 x10^3/uL (4.8-10.8) H 08/25/19 06:10 RBC 4.91 10^6/uL (4.20-5.40) 08/25/19 06:10 Hgb 16.0 g/dL (12.0-16.0) 08/25/19 06:10 Hct 48.3 % (37.0-47.0) H 08/25/19 06:10 MCV 98.4 fL (81.0-99.0) 08/25/19 06:10 MCH 32.6 pg (27.0-31.0) H 08/25/19 06:10 MCHC 33.1 g/dL (32.0-36.0) 08/25/19 06:10 RDW 15.2 % (12.0-15.0) H 08/25/19 06:10 Plt Count 213 10^3/uL (130-450) 08/25/19 06:10 MPV 10.5 fL (7.9-10.8) 08/25/19 06:10 Neut # (Auto) 13.2 10^3/uL (1.5-6.6) H 08/25/19 06:10 Lymph # (Auto) 0.7 10^3/uL (1.5-3.5) L 08/25/19 06:10 [place] # (Auto) 0.5 10^3/uL (0.0-1.0) 08/25/19 06:10 Eos # (Auto) 0.0 10^3/uL (0.0-0.7) 08/25/19 06:10 Baso # (Auto) 0.0 10^3/uL (0.0-0.1) 08/25/19 06:10 Absolute Nucleated RBC 0.00 x10^3/uL 08/25/19 06:10 Nucleated RBC % 0.0 /100WBC 08/25/19 06:10 PT 17.7 secs (9.9-12.6) H 08/25/19 06:10 INR 1.6 (0.8-1.2) H 08/25/19 06:10 APTT 53.1 secs (24.9-33.3) H 08/24/19 03:30 Sodium 134 mmol/L (135-145) L 08/25/19 06:10 Potassium 3.9 mmol/L (3.5-5.0) 08/25/19 06:10 Chloride 99 mmol/L (101-111) L 08/25/19 06:10 Carbon Dioxide 27 mmol/L (21-32) 08/25/19 06:10 Anion Gap 8.0 (6-13) 08/25/19 06:10 BUN 13 mg/dL (6-20) 08/25/19 06:10 Creatinine 0.4 mg/dL (0.4-1.0) 08/25/19 06:10 Estimated GFR (MDRD) 157 (>89) 08/25/19 06:10 Glucose 157 mg/dL (70-100) H 08/25/19 06:10 Lactic Acid 1.1 mmol/L (0.5-2.2) 08/24/19 03:30 Calcium 8.6 mg/dL (8.5-10.3) 08/25/19 06:10 Magnesium 2.2 mg/dL (1.7-2.8) 08/24/19 10:37 Total Bilirubin 0.7 mg/dL (0.2-1.0) 08/24/19 03:30 AST 25 IU/L (10-42) 08/24/19 03:30 ALT 13 IU/L (10-60) 08/24/19 03:30 Alkaline Phosphatase 104 IU/L (42-121) 08/24/19 03:30 Troponin I High Sens < 2.3 ng/L (2.3-14.8) L 08/24/19 10:57 B-Natriuretic Peptide 45 pg/mL (5-100) 08/24/19 03:30 Total Protein 7.7 g/dL (6.7-8.2) 08/24/19 03:30 Albumin 4.0 g/dL (3.2-5.5) 08/24/19 03:30 Globulin 3.7 g/dL (2.1-4.2) 08/24/19 03:30 Albumin/Globulin Ratio 1.1 (1.0-2.2) 08/24/19 03:30 Lipase 48 U/L (22-51) 08/24/19 03:30
[2019-08-25] MEDS ORDERED: WARFARIN 5 MG TABLET PO SCH (19:00)
[2019-08-25] MEDS: SPIRONOLACTONE 25 MG TABLET PO SCH (21:14)
[2019-08-25] MEDS: MONTELUKAST 10 MG TABLET PO SCH (21:14)
[2019-08-25] MEDS: LACTULOSE 10 GM /15 ML UDC PO SCH (21:14)
[2019-08-25] MEDS: methylPREDNISolone SUCCINATE 40 MG/ML VIAL IVP SCH (21:14)
[2019-08-25] MEDS ORDERED: NICOTINE 14 MG PATCH TOP STA (21:38)
[2019-08-25] MEDS ORDERED: ALBUTEROL NEB 2.5 MG/3 ML INH PRN (22:11)
[2019-08-25] MEDS ORDERED: IPRATROPIUM 0.2 MG/ML NEB INH SCH (23:00)
[2019-08-26] MEDS: ALBUTEROL 1 PUFF INH PRN ×2 (00:39→08:22)
[2019-08-26] MEDS: FORMOTEROL FUMARATE NEB 20 MCG/2 ML INH SCH ×3 (00:46→20:29)
[2019-08-26] MEDS: BUDESONIDE 0.5 MG/2 ML NEB INH SCH ×3 (00:46→20:29)
[2019-08-26] MEDS: SODIUM CHLORIDE FLUSH 0.9% 10 ML SYRINGE IVP SCH ×4 (01:37→23:47)
[2019-08-26 05:12] LABS: BASOPHILS % (AUTO) 0.1 %; EOSINOPHILS % (AUTO) 0.1 %; HGB - HEMOGLOBIN 15.4 g/dL (12.0-16.0); LYMPHOCYTES # (AUTO) 0.5 10^3/uL (1.5-3.5); LYMPHOCYTES % (AUTO) 3.4 %; MEAN CORPUSCULAR HEMOGLOBIN 32.8 pg (27.0-31.0); MEAN CORPUSCULAR HGB CONC 32.6 g/dL (32.0-36.0); MEAN CORPUSCULAR VOLUME 100.6 fL (81.0-99.0); MEAN PLATELET VOLUME 10.7 fL (7.9-10.8); MONOCYTES # (AUTO) 0.5 10^3/uL (0.0-1.0); MONOCYTES % (AUTO) 3.1 %; NEUTROPHILS # (AUTO) 14.7 10^3/uL (1.5-6.6); NEUTROPHILS % (AUTO) 92.5 %; PLT - PLATELET COUNT 209 10^3/uL (130-450); RED CELL DISTRIBUTION WIDTH 15.5 % (12.0-15.0); WHITE BLOOD COUNT 15.9 x10^3/uL (4.8-10.8)
[2019-08-26 05:17] LABS: INR 1.8 (0.8-1.2); PT - PROTHROMBIN TIME 19.8 secs (9.9-12.6)
[2019-08-26 05:23] LABS: CALCIUM 8.6 mg/dL (8.5-10.3); CREATININE 0.4 mg/dL (0.4-1.0)
[2019-08-26] MEDS: SODIUM CHLORIDE FLUSH 0.9% 10 ML SYRINGE IVP PRN ×2 (05:58→13:58)
[2019-08-26] MEDS: methylPREDNISolone SUCCINATE 40 MG/ML VIAL IVP SCH ×3 (05:58→21:11)
[2019-08-26] MEDS: LACTULOSE 10 GM /15 ML UDC PO SCH ×3 (05:58→21:11)
[2019-08-26] MEDS ORDERED: IPRATROPIUM 0.2 MG/ML NEB INH SCH (07:00)
[2019-08-26] MEDS: PRENATAL VITAMIN TABLET PO SCH (07:48)
[2019-08-26] MEDS: NICOTINE 14 MG PATCH TOP SCH (08:34)
[2019-08-26] MEDS: PROPRANOLOL 10 MG TABLET PO SCH ×2 (08:35→21:10)
[2019-08-26] MEDS: SPIRONOLACTONE 25 MG TABLET PO SCH ×2 (08:36→21:10)
[2019-08-26] MEDS ORDERED: AZITHROMYCIN 250 MG TABLET PO STA (11:33)
--- NOTE | 2019-08-26 12:33 | PROVIDER PROGRESS NOTE ---
Assessment/Plan - Problem List (1) COPD exacerbation Assessment/Plan: COVID test is still pending, therefore she is getting MDIs, not nebulizers yet. She got 1 day of high-dose IV steroids, I resumed steroids 3 times daily starting yesterday and she needed to continue with inpatient care, was admitted to Inpatient status from Observation. Will discontinue respiratory isolation when a COVID negative result is back. We will add empiric Zithromax. Continue with her Singulair and Robitussin. (2) History of pulmonary embolism Assessment/Plan: She is on Coumadin. Follow INR daily. INR target is 2-3. (3) Alcoholic cirrhosis Assessment/Plan: Her home management for this has been ordered here. (4) Hypertension Assessment/Plan: Continue with her home meds for this. (5) Tobacco use Assessment/Plan: Nicotine patch ordered to use. - Current Meds Current Meds: Current Medications Generic Name Dose Route Start Last Admin Trade Name Freq PRN Reason Stop Dose Admin Acetaminophen 650 mg 08/24/19 11:06 08/25/19 08:53 Tylenol PO 650 mg Q4HR PRN Administration Pain or Fever > 38C (100.4F) Albuterol 2 puffs 08/24/19 05:31 08/26/19 08:22 Mdi: Albuterol INH 2 puffs Q4H PRN Administration Dyspnea Budesonide 0.5 mg 08/25/19 23:00 08/26/19 08:18 Pulmicort INH Not Given RTBID FELIBERTO Formoterol Fumarate 20 mcg 08/25/19 23:00 08/26/19 08:21 Perforomist INH Not Given RTBID FELIBERTO Guaifenesin 10 ml 08/25/19 00:52 08/25/19 22:50 Robitussin Dm PO 10 ml Q6HR PRN Administration Cough Ipratropium [place] 0.2 mg 08/26/19 07:00 08/26/19 08:20 Atrovent INH Not Given RTQID FELIBERTO Lactulose 10 gm 08/25/19 22:00 08/26/19 05:58 Enulose PO 10 gm TID FELIBERTO Administration Methylprednisolone 80 mg 08/25/19 22:00 08/26/19 05:58 Solu-Medrol (40mg Vial) IVP 80 mg TID FELIBERTO Administration Montelukast Sodium 10 mg 08/24/19 21:00 08/25/19 21:14 Singulair PO 10 mg QPM FELIBERTO Administration Nicotine 1 patch 08/24/19 09:00 08/26/19 08:34 Nicoderm TOP 1 patch DAILY FELIBERTO Administration Multivit/Folic Acid/Iron 1 tab 08/24/19 12:00 08/26/19 07:48 Trinatal Rx 1 PO 1 tab DAILYWM FELIBERTO Administration Propranolol HCl 10 mg 08/24/19 21:00 08/26/19 08:35 Inderal PO 10 mg BID FELIBERTO Administration Sodium Chloride 10 ml 08/24/19 05:25 08/26/19 05:58 Normal Saline Flush 0.9% IVP 10 ml PRN PRN Administration NEEDED PER PROVIDER ORDERS Sodium Chloride 10 ml 08/24/19 09:00 08/26/19 08:34 Normal Saline Flush 0.9% IVP 10 ml 0100,0900,1700 FELIBERTO Administration Spironolactone 25 mg 08/25/19 21:00 08/26/19 08:36 Aldactone PO 25 mg BID FELIBERTO Administration Warfarin Sodium 5 mg 08/24/19 17:00 08/25/19 17:14 Coumadin PO 5 mg [id number]@1700 FELIBERTO Administration - Lab Result Fish Bone Diagrams: 08/26/19 04:35 08/26/19 04:35 - Additional Planning My Orders: My Active Orders 08/25/19 21:00 Spironolactone [Aldactone] 25 mg PO BID 08/25/19 22:00 Lactulose [Enulose] 10 gm PO TID methylPREDNISolone SUCCINATE [SOLU-Medrol (40MG VIAL)] 80 mg IVP TID 08/25/19 22:11 Albuterol 2.5 mg INH Q4H PRN 08/25/19 23:00 Budesonide [Pulmicort] 0.5 mg INH RTBID Formoterol Fumarate [Perforomist] 20 mcg INH RTBID 08/26/19 07:00 Ipratropium [Atrovent] 0.2 mg INH RTQID 08/27/19 09:00 Azithromycin [Zithromax] 250 mg PO DAILY Subjective - Subjective Patient Reports: Shortness of Breath (Patient feels minimally better, after all of her MDIs have been continued and IV steroids restarted.) Objective Vital Signs: Vital Signs - 24 hr 08/25/19 08/25/19 08/25/19 12:50 13:59 17:33 Temperature 36.6 C 36.4 C L Heart Rate 80 Heart Rate [ 73 89 Brachial] Respiratory 20 20 18 Rate Blood Pressure 118/64 126/70 [Right Brachial artery] O2 Saturation 97 92 08/25/19 08/25/19 08/25/19 19:57 20:20 21:18 Temperature 36.6 C Heart Rate 80 Heart Rate [ 80 76 Brachial] Respiratory 18 18 Rate Blood Pressure 131/60 H 122/69 [Right Brachial artery] O2 Saturation 96 08/25/19 08/26/19 08/26/19 23:40 00:40 04:40 Temperature 36.8 C 36.5 C Heart Rate 69 Heart Rate [ 70 64 Brachial] Respiratory 18 18 16 Rate Blood Pressure 128/74 110/55 L [Right Brachial artery] O2 Saturation 97 97 08/26/19 08/26/19 07:51 08:22 Temperature 36.6 C Heart Rate 70 Heart Rate [ 67 Brachial] Respiratory 16 24 Rate Blood Pressure 126/71 [Right Brachial artery] O2 Saturation 98 Oxygen O2 Source Nasal cannula Oxygen Flow Rate 3 I&O (Last 24 Hrs): Intake and Output Totals x24h 08/24/19 08/25/19 08/26/19 23:59 23:59 23:59 Intake Total 1600 1240 480 Balance 1600 1240 480 General: Alert HEENT: Mucous membr. moist/pink, Other (Edentulous, still has pursed lip breathing when speaking, wearing O2 nasal cannula) Neck: Supple, Other (Positive JVD) Neuro: Alert (As it of JVD), Non Focal Cardiovascular: Regular rate, No murmurs Respiratory: Other (Tight but no wheezing or) Abdomen: Soft Extremities: No edema Skin: No rashes (Tanned and leathery skin of face and arm) - Results Results: Laboratory Results WBC 15.9 x10^3/uL (4.8-10.8) H 08/26/19 04:35 RBC 4.70 10^6/uL (4.20-5.40) 08/26/19 04:35 Hgb 15.4 g/dL (12.0-16.0) 08/26/19 04:35 Hct 47.3 % (37.0-47.0) H 08/26/19 04:35 MCV 100.6 fL (81.0-99.0) H 08/26/19 04:35 MCH 32.8 pg (27.0-31.0) H 08/26/19 04:35 MCHC 32.6 g/dL (32.0-36.0) 08/26/19 04:35 RDW 15.5 % (12.0-15.0) H 08/26/19 04:35 Plt Count 209 10^3/uL (130-450) 08/26/19 04:35 MPV 10.7 fL (7.9-10.8) 08/26/19 04:35 Neut # (Auto) 14.7 10^3/uL (1.5-6.6) H 08/26/19 04:35 Lymph # (Auto) 0.5 10^3/uL (1.5-3.5) L 08/26/19 04:35 [place] # (Auto) 0.5 10^3/uL (0.0-1.0) 08/26/19 04:35 Eos # (Auto) 0.0 10^3/uL (0.0-0.7) 08/26/19 04:35 Baso # (Auto) 0.0 10^3/uL (0.0-0.1) 08/26/19 04:35 Absolute Nucleated RBC 0.00 x10^3/uL 08/26/19 04:35 Nucleated RBC % 0.0 /100WBC 08/26/19 04:35 PT 19.8 secs (9.9-12.6) H 08/26/19 04:35 INR 1.8 (0.8-1.2) H 08/26/19 04:35 APTT 53.1 secs (24.9-33.3) H 08/24/19 03:30 Sodium 137 mmol/L (135-145) 08/26/19 04:35 Potassium 4.4 mmol/L (3.5-5.0) 08/26/19 04:35 Chloride 103 mmol/L (101-111) 08/26/19 04:35 Carbon Dioxide 29 mmol/L (21-32) 08/26/19 04:35 Anion Gap 5.0 (6-13) L 08/26/19 04:35 BUN 13 mg/dL (6-20) 08/26/19 04:35 Creatinine 0.4 mg/dL (0.4-1.0) 08/26/19 04:35 Estimated GFR (MDRD) 157 (>89) 08/26/19 04:35 Glucose 153 mg/dL (70-100) H 08/26/19 04:35 Lactic Acid 1.1 mmol/L (0.5-2.2) 08/24/19 03:30 Calcium 8.6 mg/dL (8.5-10.3) 08/26/19 04:35 Magnesium 2.2 mg/dL (1.7-2.8) 08/24/19 10:37 Total Bilirubin 0.7 mg/dL (0.2-1.0) 08/24/19 03:30 AST 25 IU/L (10-42) 08/24/19 03:30 ALT 13 IU/L (10-60) 08/24/19 03:30 Alkaline Phosphatase 104 IU/L (42-121) 08/24/19 03:30 Troponin I High Sens < 2.3 ng/L (2.3-14.8) L 08/24/19 10:57 B-Natriuretic Peptide 45 pg/mL (5-100) 08/24/19 03:30 Total Protein 7.7 g/dL (6.7-8.2) 08/24/19 03:30 Albumin 4.0 g/dL (3.2-5.5) 08/24/19 03:30 Globulin 3.7 g/dL (2.1-4.2) 08/24/19 03:30 Albumin/Globulin Ratio 1.1 (1.0-2.2) 08/24/19 03:30 Lipase 48 U/L (22-51) 08/24/19 03:30
[2019-08-26] MEDS ORDERED: WARFARIN 2.5 MG TABLET PO SCH (17:00)
[2019-08-26] MEDS ORDERED: WARFARIN 5 MG TABLET PO SCH (18:25)
[2019-08-26] MEDS: IPRATROPIUM/ALBUTEROL 3 ML NEB INH SCH (20:29)
[2019-08-26] MEDS: ACETAMINOPHEN 325 MG TABLET PO PRN (21:09)
[2019-08-26] MEDS: MONTELUKAST 10 MG TABLET PO SCH (21:09)
[2019-08-26] MEDS: guaiFENesin/DEXTROMETHORPHAN 10 ML UDC PO PRN (23:52)
[2019-08-27] MEDS: IPRATROPIUM/ALBUTEROL 3 ML NEB INH SCH ×3 (00:23→13:31)
[2019-08-27 05:26] LABS: BASOPHILS % (AUTO) 0.2 %; EOSINOPHILS % (AUTO) 0.1 %; HGB - HEMOGLOBIN 16.5 g/dL (12.0-16.0); LYMPHOCYTES # (AUTO) 0.7 10^3/uL (1.5-3.5); LYMPHOCYTES % (AUTO) 4.9 %; MEAN CORPUSCULAR HEMOGLOBIN 33.4 pg (27.0-31.0); MEAN CORPUSCULAR HGB CONC 33.4 g/dL (32.0-36.0); MEAN PLATELET VOLUME 10.3 fL (7.9-10.8); MONOCYTES # (AUTO) 0.5 10^3/uL (0.0-1.0); MONOCYTES % (AUTO) 3.5 %; NEUTROPHILS # (AUTO) 12.2 10^3/uL (1.5-6.6); NEUTROPHILS % (AUTO) 90.7 %; PLT - PLATELET COUNT 211 10^3/uL (130-450); RED BLOOD COUNT 4.94 10^6/uL (4.20-5.40); RED CELL DISTRIBUTION WIDTH 15.5 % (12.0-15.0); WHITE BLOOD COUNT 13.5 x10^3/uL (4.8-10.8)
[2019-08-27 05:38] LABS: CALCIUM 8.7 mg/dL (8.5-10.3); CREATININE 0.5 mg/dL (0.4-1.0)
[2019-08-27] MEDS: SODIUM CHLORIDE FLUSH 0.9% 10 ML SYRINGE IVP PRN ×2 (06:37→14:01)
[2019-08-27] MEDS: methylPREDNISolone SUCCINATE 40 MG/ML VIAL IVP SCH ×2 (06:37→14:01)
[2019-08-27] MEDS: LACTULOSE 10 GM /15 ML UDC PO SCH ×2 (06:37→14:01)
[2019-08-27] MEDS: FORMOTEROL FUMARATE NEB 20 MCG/2 ML INH SCH (07:18)
[2019-08-27] MEDS: BUDESONIDE 0.5 MG/2 ML NEB INH SCH (07:19)
[2019-08-27] MEDS: PRENATAL VITAMIN TABLET PO SCH (08:03)
[2019-08-27] MEDS ORDERED: AZITHROMYCIN 250 MG TABLET PO SCH (09:00)
[2019-08-27] MEDS: SPIRONOLACTONE 25 MG TABLET PO SCH (09:19)
[2019-08-27] MEDS: PROPRANOLOL 10 MG TABLET PO SCH (09:19)
[2019-08-27] MEDS: SODIUM CHLORIDE FLUSH 0.9% 10 ML SYRINGE IVP SCH (09:19)
[2019-08-27] MEDS: NICOTINE 14 MG PATCH TOP SCH (09:20)
--- NOTE | 2019-08-27 11:09 | Discharge Plan ---
Discharge Plan Problem Reviewed?: Yes Disposition: Home, Self Care Condition: Fair Prescriptions: Methylprednisolone [Medrol Dose Pack] 1 each PO .PACKAGEINSTRUCTIONS 6 Days #1 each Nicotine 14 mg Patch [Nicoderm] 1 patch TOP DAILY #10 patch Azithromycin [Zithromax] 250 mg PO DAILY #3 tablet Diet: Regular Activity Restrictions: Activity as Tolerated Shower Restrictions: No Driving Restrictions: No Instruction Topics: Disease Chronic Lung Quit Smoking Health Concerns: You were hospitalized for an exacerbation of COPD. You are being discharged home with steroids to take in a tapering down schedule. You also need new oxygen to use at home when you are active, not at rest. There is a prescription for an 3 more days to finish the antibiotic. A nicotine patch has also been prescribed. The new prescriptions were sent electronically to your pharmacy. You have been referred to the pulmonary rehab department at the "[facility]" rehab Dept here at the hospital. They will be calling you for starting. Resume all your other prehospital medications. Plan of Treatment: As above. Care Goals: Improvement in symptoms and stabilization are the goals. Assessment: Patient understands and is agreeable with the plan. Additional Instructions or Follow Up instructions: If you have new or worsening symptoms, call your PCP for advice or come to the ER. Follow-Up Care: [facility] - Pulmonary No Smoking: If you smoke, Please STOP! Call for help. Follow-up with: STACY PRAKASH MD [Primary Care Provider] -
--- NOTE | 2019-08-27 11:24 | DISCHARGE SUMMARY ---
Discharge Summary Admit Date: 08/24/19 Discharge Date: 08/27/19 Discharging Provider: Dr Emily Sher Primary Care Provider: Dr Lo Gross Code Status: Attempt Resuscitation Condition at Discharge: Fair Discharge Disposition: 01 Home, Self Care - HPI History of Present Illness: From the admission H&P of Dr Oly Vogel: Patient is a 69-year-old female with history of COPD, alcoholic liver cirrhosis and hypertension who presented to the ED with complaint of dyspnea. Symptoms have been going on for the past 3 days but were worse last night when she woke up to go to the bathroom. As a result has called EMS who brought her to the ED. Upon arrival her oxygen saturation was 85% on room air. With 2 L of oxygen it improved to 93%. She does not use oxygen at home. The patient thinks her COPD was exacerbated by a change to hot weather and pollens around. At the time of my evaluation she reported marked improvement in her symptoms however she still has a feeling of chest "tightness". She has been coughing up yellowish sputum. She denied fever or chills. She denied abdominal pain however she gets nauseous after prolonged period of coughing. The rest of her history is unremarkable. The CXR showed no acute changes. She is being placed in Observation status, in infectious isolation, awaiting COVID test and will be started on treatment for a COPD exacerbation. - HOSPITAL COURSE Hospital Course: (1) COPD exacerbation She was initially put in Observation status, in case her exacerbation reversed in 1 day. She required supplemental oxygen by nasal cannula, and got 1 day of high-dose IV steroids and was on her MDIs, not RT-administered nebulizers, while in isolation while COVID results were pending (per hospital policy). She also received Mucinex and Singulair at . She was still "tight" after a day and was admitted to inpatient status. Her iv steroids 3 times daily were continued during inpatient care and empiric Zithromax was added. The COVID result returned negative. On her final day, she underwent an oximetry exercise study with the Resp Therapist. The patient had an O2 saturation of 90% on room air at rest. With activity, her O2 sat dropped to 88% on room air. It was 92% on 1L per nasal cannula at 120 feet. I am ordering new home oxygen at 1L per nasal cannula to be used with exertion. She was discharged home with a prescription for a Medrol Dose Spike, for a steroid taper, and told to resume her usual inhaler treatment, and got a prescription to finish several more days of Zithromax. (2) History of pulmonary embolism She was kept on her Coumadin. INR was monitored daily. (3) Alcoholic cirrhosis Her chronic home management for this was ordered here (Lactulose). The serum ammonia level was not monitored daily. (4) Hypertension She was continued on her home meds while here. (5) Tobacco use Nicotine Patch was ordered to used here and she was motivated to quit smoking, thus she was discharged with a new prescription for Nicotine Patches. - ALLERGIES Allergies/Adverse Reactions: Allergies Allergy/AdvReac Type Severity Reaction Status Date / Time Latex, Natural Rubber Allergy Rash Verified 09/20/18 11:45 lisinopril Allergy Respiratory Verified 09/20/18 11:45 - MEDICATIONS Home Medications: Ambulatory Orders Medication Instructions Recorded Confirmed Albuterol Sulfate [Albuterol 2 puffs IH Q4H PRN #1 hfa.aer.ad 08/11/18 08/24/19 Sulfate Hfa] Tiotropium [place] [Spiriva] 1 puffs INH DAILY 30 Days #30 each 08/11/18 08/24/19 Montelukast [Singulair] 10 mg PO QPM 09/21/18 08/24/19 Propranolol [Inderal] 10 mg PO BID 09/21/18 08/24/19 Spironolactone 25 mg PO BID 09/21/18 08/24/19 Fluticasone/Salmeterol [Advair 1 inh PO BID 08/24/19 08/24/19 250-50 Diskus] Furosemide 40 mg PO DAILY 08/24/19 08/24/19 Lactulose [Generlac] 10 gm PO TID 08/24/19 08/24/19 Omeprazole 20 mg PO DAILY 08/24/19 08/24/19 Warfarin Sodium [Coumadin] 2.5 mg PO SUMO 08/24/19 08/24/19 Warfarin Sodium [Coumadin] 5 mg PO TUWETHFRSA 08/24/19 08/24/19 Azithromycin [Zithromax] 250 mg PO DAILY #3 tablet 08/27/19 Methylprednisolone [Medrol Dose 1 each PO .PACKAGEINSTRUCTIONS 6 08/27/19 Pack] Days #1 each Nicotine 14 mg Patch [Nicoderm] 1 patch TOP DAILY #10 patch 08/27/19 - PHYSICAL EXAM AT DISCHARGE General Appearance: positive: No acute distress, Other (thin with tanned leathery skin, edentulous) Eyes Bilateral: positive: Normal inspection, EOMI ENT: positive: ENT inspection nml, No signs of dehydration Neck: positive: Nml inspection Respiratory: positive: No respiratory distress, Other (clear but distant breath sounds) Cardiovascular: positive: Regular rate & rhythm, No murmur Abdomen: positive: Non-tender, No distention Skin: positive: Color nml Extremities: positive: Non-tender, No pedal edema - LABS Result Diagrams: 08/27/19 05:05 08/27/19 05:05 - DIAGNOSTIC IMAGING Diagnostic Imaging Results: Final report reviewed - FOLLOW UP Follow Up: See PCP in 5-10 days in hospital follow-up. - TIME SPENT Time Spent in Discharge (Minutes): 40
[2019-08-27 11:27] VITALS: BP 116/66
== END 2019-08-27 15:05 | disposition home or self-care (01) | DRG 192 ==
LOC: ED 02:41 → MS2 05:25 → OBSVTOIN 08-25 16:22
PROVIDERS: ADMIT Internal Medicine; ATTEND Internal Medicine
DX: J44.1 Chronic obstructive pulmonary disease with (acute) exacerbation (principal); I11.0 Hypertensive heart disease with heart failure; I50.9 Heart failure, unspecified; K70.30 Alcoholic cirrhosis of liver without ascites; F17.200 Nicotine dependence, unspecified, uncomplicated; Z11.59 Encounter for screening for other viral diseases; Z79.01 Long term (current) use of anticoagulants; Z79.51 Long term (current) use of inhaled steroids; Z83.6 Family history of other diseases of the respiratory system; Z86.711 Personal history of pulmonary embolism
CPT/HCPCS: 36415; 71046; 80048; 80053; 83605; 83690; 83735; 83880; 84484; 85025; 85610; 85730; 93005; 94640; 94664; 94761; 96374; 96375; 96376; 99284; 99285; A9270; J7626; U0004

== ENCOUNTER 2019-11-18 02:05 | Emergency (ER) | payer MEDICARE, OTHER ==
--- NOTE | 2019-11-18 02:17 | ED Physician Documentation ---
PD HPI DYSPNEA - Stated complaint Stated Complaint: SOA - History obtained from History obtained from: Patient, Family, EMS - History of Present Illness Timing - onset: Enter time (17:00), Today Timing - onset during: Rest Timing - details: Gradual onset Pain level max: 0 Pain level now: 0 Improved by: Rest Worsened by: Exertion Associated symptoms: Cough, Wheezing. No: Fever, Hemoptysis, Chest pain / discomfort, Palpitations, Unilateral edema Similar symptoms before: Diagnosis (COPD) Recently seen: Other (admitted in August for COPD exacerbation (she appeared much sicker at that time; I was the ED physician on duty)) - Additional information Additional information: BIBA, c/o increasing dyspnea since 5 PM with mild productive cough. dyspnea not responding to her advair and albuterol Review of Systems Constitutional: reports: Reviewed and negative Cardiac: reports: Reviewed and negative Respiratory: reports: Dyspnea, Cough, Wheezing. 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: Breast cancer : None HEENT: None Psych: Depression, Anxiety Musculoskeletal: Osteoarthritis, Osteoporosis, Chronic back pain Derm: None - Past Surgical History Past Surgical History: Yes General: Colonoscopy, EGD, Other /CHARTER BUS DRIVER: Other - Present Medications Home Medications: Ambulatory Orders Medication Instructions Recorded Confirmed Albuterol Sulfate [Albuterol 2 puffs IH Q4H PRN #1 hfa.aer.ad 08/11/18 11/18/19 Sulfate Hfa] Tiotropium [place] [Spiriva] 1 puffs INH DAILY 30 Days #30 each 08/11/18 0 Montelukast [Singulair] 10 mg PO QPM 09/21/18 11/18/19 Propranolol [Inderal] 10 mg PO BID 09/21/18 11/18/19 Spironolactone 25 mg PO BID 09/21/18 11/18/19 Fluticasone/Salmeterol [Advair 1 inh PO BID 08/24/19 11/18/19 250-50 Diskus] Furosemide 40 mg PO DAILY 08/24/19 11/18/19 Lactulose [Generlac] 10 gm PO TID 08/24/19 11/18/19 Omeprazole 20 mg PO DAILY 08/24/19 11/18/19 Nicotine 14 mg Patch [Nicoderm] 1 patch TOP DAILY #10 patch 08/27/19 11/18/19 Rivaroxaban [Xarelto] 10 mg PO DAILY 11/18/19 11/18/19 predniSONE [Prednisone] 40 mg PO DAILY 4 Days #8 tablet 11/18/19 - Allergies Allergies/Adverse Reactions: Allergies Allergy/AdvReac Type Severity Reaction Status Date / Time Latex, Natural Rubber Allergy Rash Verified 11/18/19 02:32 lisinopril Allergy Respiratory Verified 11/18/19 02:32 - Social History Does the pt smoke?: Yes Smoking Status: Current every day smoker Does the pt drink ETOH?: Yes Does the pt have substance abuse?: No - Immunizations Immunizations are current?: Yes - POLST Patient has POLST: No POLST Status: Full Code PD ED PE NORMAL - Vitals Vital signs reviewed: Yes - General General: Alert and oriented X 3, No acute distress, Well developed/nourished, Other (speaking in full sentences, NAD) - Neck Neck: Supple, no meningeal sign - Cardiac Cardiac: RRR, No murmur - Respiratory Respiratory: No respiratory distress - Abdomen Abdomen: Soft, Non tender - Derm Derm: Normal color, Warm and dry - Extremities Extremities: No edema PD ED PE EXPANDED - Respiratory Respiratory: Wheezing, Decreased breath sounds (distant breath sounds throughout with poor air movement) Results - Vitals Vitals: Vital Signs - 24 hr 11/18/19 11/18/19 11/18/19 02:05 02:39 02:43 Temperature 36.7 C Heart Rate 82 82 78 Respiratory 20 17 20 Rate Blood Pressure 176/86 H 156/83 H O2 Saturation 88 L 97 11/18/19 11/18/19 11/18/19 02:48 03:20 04:00 Temperature 36.6 C 36.8 C Heart Rate 77 73 86 Respiratory 16 13 19 Rate Blood Pressure 166/93 H 110/80 161/85 H O2 Saturation 99 99 95 11/18/19 11/18/19 11/18/19 04:30 04:45 05:00 Temperature 36.7 C Heart Rate 73 76 80 Respiratory 22 18 18 Rate Blood Pressure 177/81 H 177/81 H O2 Saturation 95 99 Oxygen O2 Source Nasal cannula Oxygen Flow Rate 2 - EKG (time done) No standard instances Rate: Rate (enter#) (77) Rhythm: NSR Spring: Normal Intervals: Normal TN QRS: Normal Ischemia: Normal ST segments, Q waves (V1-V3) - Labs Labs: Laboratory Tests 11/18/19 11/18/19 11/18/19 02:20 02:20 02:20 WBC 11.3 H RBC 4.98 Hgb 16.8 H Hct 51.3 H MCV 103.0 H MCH 33.7 H MCHC 32.7 RDW 13.4 Plt Count 257 MPV 10.4 Neut # (Auto) 7.9 H Lymph # (Auto) 2.1 Alfalfa # (Auto) 1.0 Eos # (Auto) 0.1 Baso # (Auto) 0.1 Absolute Nucleated RBC 0.00 Nucleated RBC % 0.0 PT 10.6 INR 0.9 APTT 26.3 Sodium 136 Potassium 4.2 Chloride 95 L Carbon Dioxide 31 Anion Gap 10.0 BUN 6 Creatinine 0.3 L Estimated GFR (MDRD) 219 Glucose 97 Calcium 8.9 Total Bilirubin 0.7 AST 28 ALT 22 Alkaline Phosphatase 94 B-Natriuretic Peptide Total Protein 7.1 Albumin 3.9 Globulin 3.2 Albumin/Globulin Ratio 1.2 Lipase 43 Urine Color Urine Clarity Urine pH Ur Specific [place] Urine Protein Urine Glucose (UA) Urine Ketones Urine Occult Blood Urine Nitrite Urine Bilirubin Urine Urobilinogen Ur Leukocyte Esterase Ur Microscopic Review Urine Culture Comments 11/18/19 11/18/19 02:20 03:50 WBC RBC Hgb Hct MCV MCH MCHC RDW Plt Count MPV Neut # (Auto) Lymph # (Auto) Al[place]alfa # (Auto) Eos # (Auto) Baso # (Auto) Absolute Nucleated RBC Nucleated RBC % PT INR APTT Sodium Potassium Chloride Carbon Dioxide Anion Gap BUN Creatinine Estimated GFR (MDRD) Glucose Calcium Total Bilirubin AST ALT Alkaline Phosphatase B-Natriuretic Peptide 23 Total Protein Albumin Globulin Albumin/Globulin Ratio Lipase Urine Color YELLOW Urine Clarity CLEAR Urine pH 6.0 Ur Specific [place] 1.010 Urine Protein NEGATIVE Urine Glucose (UA) NEGATIVE Urine Ketones NEGATIVE Urine Occult Blood NEGATIVE Urine Nitrite NEGATIVE Urine Bilirubin NEGATIVE Urine Urobilinogen 0.2 (NORMAL) Ur Leukocyte Esterase NEGATIVE Ur Microscopic Review NOT INDICATED Urine Culture Comments NOT INDICATED - Rads (name of study) cxr Radiology: Prelim report reviewed, See rad report PD MEDICAL DECISION MAKING - ED course Complexity details: reviewed old records, reviewed results, re-evaluated patient, considered differential, d/w patient ED course: patient reported significant symptomatic improvement after duoneb and two subsequent albuterol nebs. also given IV solu-medrol. on reexam, she had improved air movement although breath sounds were still distant. there was resi dual expiratory wheezing. she was comfortable with, and appropriate for, discharge home Departure - Departure Disposition: 01 Home, Self Care Clinical Impression: COPD exacerbation Condition: Good Instructions: ED COPD Flare Follow-Up: STACY PRAKASH MD [Primary Care Provider] - Prescriptions: predniSONE [Prednisone] 40 mg PO DAILY 4 Days #8 tablet Discharge Date/Time: 11/18/19 05:08
[2019-11-18] MEDS ORDERED: IPRATROPIUM/ALBUTEROL 3 ML NEB INH STA (02:32)
[2019-11-18] MEDS ORDERED: methylPREDNISolone SUCCINATE 125 MG/2 ML VIAL IVP STA (02:33)
[2019-11-18 02:38] LABS: BASOPHILS # (AUTO) 0.1 10^3/uL (0.0-0.1); BASOPHILS % (AUTO) 0.8 %; EOSINOPHILS # (AUTO) 0.1 10^3/uL (0.0-0.7); HGB - HEMOGLOBIN 16.8 g/dL (12.0-16.0); LYMPHOCYTES # (AUTO) 2.1 10^3/uL (1.5-3.5); LYMPHOCYTES % (AUTO) 18.4 %; MEAN CORPUSCULAR HEMOGLOBIN 33.7 pg (27.0-31.0); MEAN CORPUSCULAR HGB CONC 32.7 g/dL (32.0-36.0); MEAN PLATELET VOLUME 10.4 fL (7.9-10.8); MONOCYTES % (AUTO) 8.9 %; NEUTROPHILS # (AUTO) 7.9 10^3/uL (1.5-6.6); NEUTROPHILS % (AUTO) 70.1 %; PLT - PLATELET COUNT 257 10^3/uL (130-450); RED BLOOD COUNT 4.98 10^6/uL (4.20-5.40); RED CELL DISTRIBUTION WIDTH 13.4 % (12.0-15.0); WHITE BLOOD COUNT 11.3 x10^3/uL (4.8-10.8)
[2019-11-18 02:44] LABS: INR 0.9 (0.8-1.2); PT - PROTHROMBIN TIME 10.6 secs (9.9-12.6)
[2019-11-18 02:48] LABS: ALBUMIN 3.9 g/dL (3.2-5.5); ALBUMIN/GLOBULIN RATIO 1.2 (1.0-2.2); BILIRUBIN,TOTAL 0.7 mg/dL (0.2-1.0); CALCIUM 8.9 mg/dL (8.5-10.3); CREATININE 0.3 mg/dL (0.4-1.0); TOTAL PROTEIN 7.1 g/dL (6.7-8.2)
[2019-11-18 02:51] LABS: PARTIAL THROMBOPLASTIN TIME 26.3 secs (24.9-33.3)
[2019-11-18] MEDS ORDERED: ALBUTEROL NEB 2.5 MG/3 ML INH STA ×2 (02:51→04:24)
[2019-11-18 04:17] LABS: BILIRUBIN,URINE NEGATIVE (NEGATIVE); GLUCOSE, URINE (UA) NEGATIVE (NEGATIVE); KETONES,URINE (UA) NEGATIVE (NEGATIVE); LEUKOCYTE ESTERASE, URINE NEGATIVE (NEGATIVE); NITRITE,URINE NEGATIVE (NEGATIVE); OCCULT BLOOD,URINE NEGATIVE (NEGATIVE); PROTEIN,URINE NEGATIVE (NEGATIVE); UROBILINOGEN,URINE 0.2 (NORMAL) E.U./dL (NORMAL)
[2019-11-18 04:19] LABS: CLARITY,URINE CLEAR (CLEAR)
[2019-11-18 04:35] VITALS: BP 177/81
--- NOTE | 2019-11-18 07:56 | XRAY Report ---
PROCEDURE: Chest 2 View X-Ray INDICATIONS: dyspnea, cough TECHNIQUE: 2 view(s) of the chest. COMPARISON: None. FINDINGS: Surgical changes and devices: None. Lungs and pleura: No pleural effusions or pneumothorax. Lungs are clear. Lung volume is large and there is a paucity of vessels suggesting emphysematous change. Mediastinum: Mediastinal contours are normal. Heart size is normal. Bones and chest wall: No suspicious bony abnormalities. Soft tissues appear unremarkable. IMPRESSION: No acute cardial pulmonary findings. Emphysematous change. These findings are concordant with the overnight interpretation. Reviewed by: Belem Curiel MD on 11/18/2019 7:54 AM PDT Approved by: Belem Curiel MD on 11/18/2019 7:54 AM PDT Station ID: [id number]
== END 2019-11-18 05:08 | disposition home or self-care (01) ==
LOC: ED 02:05
DX: J43.9 Emphysema, unspecified (principal); Z20.828 Contact with and (suspected) exposure to other viral communicable diseases; I11.0 Hypertensive heart disease with heart failure; I50.9 Heart failure, unspecified; Z86.718 Personal history of other venous thrombosis and embolism; Z79.01 Long term (current) use of anticoagulants; F17.200 Nicotine dependence, unspecified, uncomplicated
CPT/HCPCS: 36415; 71046; 80053; 81003; 83690; 83880; 85025; 85610; 85730; 93005; 94640; 96374; 99284; U0004; 81001; 87086

== ENCOUNTER 2020-05-13 03:24 | Emergency (ER) | payer MEDICARE, OTHER ==
[2020-05-13 04:12] LABS: BASOPHILS # (AUTO) 0.1 10^3/uL (0.0-0.1); BASOPHILS % (AUTO) 1.1 %; EOSINOPHILS # (AUTO) 0.1 10^3/uL (0.0-0.7); EOSINOPHILS % (AUTO) 0.6 %; HCT - HEMATOCRIT 51.1 % (37.0-47.0); HGB - HEMOGLOBIN 17.6 g/dL (12.0-16.0); LYMPHOCYTES # (AUTO) 1.1 10^3/uL (1.5-3.5); LYMPHOCYTES % (AUTO) 10.6 %; MEAN CORPUSCULAR HEMOGLOBIN 34.9 pg (27.0-31.0); MEAN CORPUSCULAR HGB CONC 34.4 g/dL (32.0-36.0); MEAN CORPUSCULAR VOLUME 101.4 fL (81.0-99.0); MEAN PLATELET VOLUME 12.1 fL (7.9-10.8); MONOCYTES # (AUTO) 1.1 10^3/uL (0.0-1.0); MONOCYTES % (AUTO) 11.1 %; NEUTROPHILS # (AUTO) 7.8 10^3/uL (1.5-6.6); NEUTROPHILS % (AUTO) 76.3 %; PLT - PLATELET COUNT 85 10^3/uL (130-450); RED BLOOD COUNT 5.04 10^6/uL (4.20-5.40); WHITE BLOOD COUNT 10.2 x10^3/uL (4.8-10.8)
[2020-05-13 04:28] LABS: ALBUMIN 3.7 g/dL (3.2-5.5); ALBUMIN/GLOBULIN RATIO 1.2 (1.0-2.2); ALKALINE PHOSPHATASE 153 IU/L (42-121); ALT ALANINE AMINOTRANSFERASE 75 IU/L (10-60); AST ASPARTATE AMINOTRANSFERASE 172 IU/L (10-42); BILIRUBIN,TOTAL 1.3 mg/dL (0.2-1.0); BUN - BLOOD UREA NITROGEN < 5 mg/dL (6-20); CARBON DIOXIDE - CO2 29 mmol/L (21-32); CHLORIDE 97 mmol/L (101-111); CREATININE 0.4 mg/dL (0.4-1.0); GFR - MDRD 157 (>89); GLUCOSE 132 mg/dL (70-100); LIPASE 26 U/L (22-51); SODIUM 137 mmol/L (135-145); TOTAL PROTEIN 6.7 g/dL (6.7-8.2)
--- NOTE | 2020-05-13 04:35 | ED Physician Documentation ---
PD HPI DYSPNEA - Stated complaint Stated Complaint: SOA, DIZZINESS, L ARM NUMB - Chief complaint Chief Complaint: Resp - History obtained from History obtained from: Patient - History of Present Illness Timing - onset: Enter time (01:30), Today Timing - onset during: Light activity Timing - details: Gradual onset Pain level max: 3 Pain level now: 1 Improved by: O2, Rest Worsened by: Exertion, Laying flat Associated symptoms: Cough, Wheezing, Chest pain / discomfort. No: Fever, Hemoptysis, Palpitations, Diaphoresis, Bilateral edema, Unilateral edema Similar symptoms before: Diagnosis (COPD) - Additional information Additional information: Patient says that at approximately 130 this morning, she awoke from sleep and ambulated to her bathroom. She says she became short of breath walking to and back from the bathroom, and develop chest pressure with left arm paresthesias. She has COPD and uses oxygen although she says only one leader and only on an as needed basis. She is on Xarelto due to history of PE. patient also tells me that she has been drinking heavily on a daily basis for several months and is worried about alcohol withdrawal. Patient still smokes daily. Review of Systems Constitutional: reports: Reviewed and negative Cardiac: reports: Chest pain / pressure. denies: Palpitations, Pedal edema, Calf pain Respiratory: reports: Dyspnea, Cough, Wheezing. 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 : None HEENT: None Psych: Depression, Anxiety Musculoskeletal: Osteoarthritis, Osteoporosis, Chronic back pain Derm: None - Past Surgical History Past Surgical History: Yes General: Colonoscopy, EGD, 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 - Present Medications Home Medications: Ambulatory Orders Medication Instructions Recorded Confirmed Propranolol [Inderal] 10 mg PO BID 09/21/18 11/18/19 Albuterol Sulfate [Proair Hfa 05/13/20 Inhaler] Lactulose 15 ml PO TID #300 ml 05/13/20 predniSONE [Deltasone] 40 mg PO DAILY 4 Days #8 tablet 05/13/20 - Allergies Allergies/Adverse Reactions: Allergies Allergy/AdvReac Type Severity Reaction Status Date / Time Latex, Natural Rubber Allergy Rash Verified 11/18/19 02:32 lisinopril Allergy Respiratory Verified 11/18/19 02:32 - Social History Does the pt smoke?: Yes Smoking Status: Current every day smoker Does the pt drink ETOH?: Yes Does the pt have substance abuse?: No - Immunizations Immunizations are current?: Yes - POLST Patient has POLST: No POLST Status: Full Code PD ED PE NORMAL - Vitals Vital signs reviewed: Yes - General General: Alert and oriented X 3, No acute distress, Well developed/nourished - Neck Neck: Supple, no meningeal sign - Cardiac Cardiac: RRR, No murmur - Respiratory Respiratory: No respiratory distress - Abdomen Abdomen: Soft, Non tender - Extremities Extremities: No edema PD ED PE EXPANDED - Respiratory Respiratory: Other (distant breath sounds bilaterally) Results - Vitals Vitals: Vital Signs - 24 hr 05/13/20 05/13/20 05/13/20 03:28 04:04 04:30 Temperature 36.5 C 36.6 C Heart Rate 102 H 95 71 Respiratory 24 97 H 17 Rate Blood Pressure 214/110 H 144/81 H O2 Saturation 89 L 18 L 97 05/13/20 05/13/20 05/13/20 05:00 05:30 05:40 Temperature Heart Rate 87 95 87 Respiratory 17 20 24 Rate Blood Pressure 144/81 H O2 Saturation 95 96 05/13/20 05/13/20 05/13/20 06:00 06:08 07:07 Temperature Heart Rate 78 110 H 75 Respiratory 23 24 24 Rate Blood Pressure 147/84 H O2 Saturation 97 94 96 05/13/20 07:09 Temperature 36.4 C L Heart Rate Respiratory Rate Blood Pressure O2 Saturation Oxygen O2 Source Nasal cannula - Labs Labs: Laboratory Tests 05/13/20 05/13/20 05/13/20 04:06 04:06 04:06 WBC 10.2 RBC 5.04 Hgb 17.6 H Hct 51.1 H MCV 101.4 H MCH 34.9 H MCHC 34.4 RDW 13.0 Plt Count 85 L MPV 12.1 H Neut # (Auto) 7.8 H Lymph # (Auto) 1.1 L [place] # (Auto) 1.1 H Eos # (Auto) 0.1 Baso # (Auto) 0.1 Absolute Nucleated RBC 0.00 Nucleated RBC % 0.0 Sodium 137 Potassium 4.0 Chloride 97 L Carbon Dioxide 29 Anion Gap 11.0 BUN < 5 L Creatinine 0.4 Estimated GFR (MDRD) 157 Glucose 132 H Calcium 9.0 Total Bilirubin 1.3 H AST 172 H ALT 75 H Alkaline Phosphatase 153 H Troponin I High Sens 12.3 Total Protein 6.7 Albumin 3.7 Globulin 3.0 Albumin/Globulin Ratio 1.2 Lipase 26 - Rads (name of study) chest xray Radiology: Prelim report reviewed, See rad report PD MEDICAL DECISION MAKING - ED course Complexity details: reviewed results, re-evaluated patient, considered differential, d/w patient ED course: no acute findings on EKG and normal high sensitivity troponin. her chest discomfort resolved during ED stay. she reports significant improvement of dysonea after duoneb and IV solumedrol, and no longer anxious after 1mg IV lorazepam. she is provided an rx for librium taper and instructed to not drink any alcohol with this rx; additionally, I instructed her to return if she is not responding to the prescribed dosing and taper schedule rather than take more than as prescribed. she says she is out of her lactulose and an rx is provided for this as well. she is also provided an rx for prednisone for her COPD exacerbation. Departure - Departure Disposition: 01 Home, Self Care Clinical Impression: COPD exacerbation Condition: Good Instructions: ED COPD Flare Prescriptions: predniSONE [Deltasone] 40 mg PO DAILY 4 Days #8 tablet Lactulose 15 ml PO TID #300 ml Comments: Follow up with your primary care provider within 1 week for reevaluation. Discharge Date/Time: 05/13/20 07:49
[2020-05-13] MEDS ORDERED: IPRATROPIUM/ALBUTEROL 3 ML NEB INH STA (04:53)
[2020-05-13] MEDS ORDERED: methylPREDNISolone SUCCINATE 125 MG/2 ML VIAL IVP STA (04:53)
[2020-05-13] MEDS ORDERED: LORazepam 2 MG/ML VIAL IVP STA (04:53)
[2020-05-13] MEDS ORDERED: MAG HYDROX/AL HYDROX/SIMETH 30 ML UDC PO STA (04:53)
[2020-05-13] MEDS ORDERED: LIDOCAINE VISCOUS 2% 15 ML UDC MM STA (04:54)
[2020-05-13 07:07] VITALS: BP 147/84
--- NOTE | 2020-05-13 08:17 | XRAY Report ---
PROCEDURE: Chest 1 View X-Ray INDICATIONS: Chest pain TECHNIQUE: One view of the chest was acquired. COMPARISON: 2 view chest 11/18/2019. FINDINGS: Surgical changes and devices: None. Lungs and pleura: No pleural effusions or pneumothorax. Lungs are clear. Mediastinum: Mediastinal contours appear normal. Heart size is normal. Bones and chest wall: No suspicious bony lesions. Overlying soft tissues appear unremarkable. IMPRESSION: Source of chest pain is not found. Reviewed by: Avinash Rojas MD on 05/13/2020 8:16 AM PDT Approved by: Avinash Rojas MD on 05/13/2020 8:16 AM PDT Station ID: [id number]
--- OUTSIDE RECORDS SUMMARY | 2020-05-14 03:19 | EXTERNAL MEDICAL SUMMARY RPT | Continuity of Care Document ---
:1950 Demographics Phone Unavailable Preferred Language Unknown Marital Status Unknown Sikh Affiliation Unknown Race Unknown Ethnic Group Unknown Author Organization [facility] Address [address] [phone] Phone Social History date description facility [phone]
--- OUTSIDE RECORDS SUMMARY | 2020-05-14 03:19 | EXTERNAL MEDICAL SUMMARY RPT | Continuity of Care Document ---
:1950 Demographics Phone Unavailable Preferred Language Unknown Marital Status Unknown Mu-Ism Affiliation Unknown Race Unknown Ethnic Group Unknown Author Organization [facility] Address [address] [phone] Phone Social History date description facility [phone]
== END 2020-05-13 07:49 | disposition home or self-care (01) ==
LOC: ED 03:24
DX: J44.1 Chronic obstructive pulmonary disease with (acute) exacerbation (principal); Z99.81 Dependence on supplemental oxygen; R07.89 Other chest pain; F10.10 Alcohol abuse, uncomplicated; I10 Essential (primary) hypertension; Z86.711 Personal history of pulmonary embolism; Z86.718 Personal history of other venous thrombosis and embolism; Z79.01 Long term (current) use of anticoagulants; F41.9 Anxiety disorder, unspecified; F17.200 Nicotine dependence, unspecified, uncomplicated
CPT/HCPCS: 36415; 71045; 80053; 83690; 84484; 85025; 93005; 94640; 96374; 96375; 99284; A9270; J2060

== ENCOUNTER 2020-05-14 22:36 | Emergency (ER) | payer MEDICARE, OTHER ==
--- OUTSIDE RECORDS SUMMARY | 2020-05-14 22:40 | EXTERNAL MEDICAL SUMMARY RPT | Continuity of Care Document ---
:1950 Demographics Phone Unavailable Preferred Language Unknown Marital Status Unknown Adventism Affiliation Unknown Race Unknown Ethnic Group Unknown Author Organization [facility] Address [address] [place] [address] Phone Social History date description facility [phone]
--- OUTSIDE RECORDS SUMMARY | 2020-05-14 22:44 | EXTERNAL MEDICAL SUMMARY RPT | Continuity of Care Document ---
:1950 Demographics Phone Unavailable Preferred Language Unknown Marital Status Unknown Yazidism Affiliation Unknown Race Unknown Ethnic Group Unknown Author Organization [place] Address [address] [phone] Phone Social History date description facility [phone]
[2020-05-14] MEDS ORDERED: ONDANSETRON 4 MG/2 ML VIAL IVP STA (23:09)
[2020-05-14] MEDS ORDERED: SODIUM CHLORIDE 0.9% 1,000 ML IV STA (23:09)
[2020-05-14 23:35] LABS: BASOPHILS # (AUTO) 0.1 10^3/uL (0.0-0.1); BASOPHILS % (AUTO) 0.9 %; EOSINOPHILS % (AUTO) 0.4 %; HCT - HEMATOCRIT 50.7 % (37.0-47.0); HGB - HEMOGLOBIN 17.3 g/dL (12.0-16.0); LYMPHOCYTES # (AUTO) 1.3 10^3/uL (1.5-3.5); LYMPHOCYTES % (AUTO) 13.8 %; MEAN CORPUSCULAR HEMOGLOBIN 34.3 pg (27.0-31.0); MEAN CORPUSCULAR HGB CONC 34.1 g/dL (32.0-36.0); MEAN CORPUSCULAR VOLUME 100.6 fL (81.0-99.0); MEAN PLATELET VOLUME 12.1 fL (7.9-10.8); MONOCYTES # (AUTO) 1.1 10^3/uL (0.0-1.0); MONOCYTES % (AUTO) 12.4 %; NEUTROPHILS # (AUTO) 6.6 10^3/uL (1.5-6.6); NEUTROPHILS % (AUTO) 72.1 %; PLT - PLATELET COUNT 101 10^3/uL (130-450); RED BLOOD COUNT 5.04 10^6/uL (4.20-5.40); RED CELL DISTRIBUTION WIDTH 12.9 % (12.0-15.0); WHITE BLOOD COUNT 9.1 x10^3/uL (4.8-10.8)
[2020-05-14 23:35] LABS: VBG BASE EXCESS 6.3 mmol/L (-2 - +2); VBG HCO3 32.1 mmol/L (23-28); VBG PCO2 49.8 mmHg (41-51); VBG PH 7.427 (7.31-7.41); VBG PO2 52.5 mmHg (25-47); VBG TOTAL CO2 33.6 mmol/L (24-29)
[2020-05-14 23:50] LABS: ALBUMIN 3.6 g/dL (3.2-5.5); ALBUMIN/GLOBULIN RATIO 1.2 (1.0-2.2); BILIRUBIN,TOTAL 1.6 mg/dL (0.2-1.0); CALCIUM 8.9 mg/dL (8.5-10.3); CREATININE 0.3 mg/dL (0.4-1.0); POTASSIUM 3.9 mmol/L (3.5-5.0); TOTAL PROTEIN 6.5 g/dL (6.7-8.2)
[2020-05-15 01:09] LABS: BILIRUBIN,URINE NEGATIVE (NEGATIVE); GLUCOSE, URINE (UA) NEGATIVE (NEGATIVE); KETONES,URINE (UA) NEGATIVE (NEGATIVE); LEUKOCYTE ESTERASE, URINE NEGATIVE (NEGATIVE); NITRITE,URINE NEGATIVE (NEGATIVE); OCCULT BLOOD,URINE NEGATIVE (NEGATIVE); PROTEIN,URINE NEGATIVE (NEGATIVE); UROBILINOGEN,URINE 0.2 (NORMAL) E.U./dL (NORMAL)
[2020-05-15 01:13] LABS: CLARITY,URINE CLEAR (CLEAR)
--- NOTE | 2020-05-15 02:25 | ED Physician Documentation ---
History of Present Illness - Stated complaint Stated Complaint: VOMITING - Chief complaint Chief Complaint: Abd Pain - History obtained from History obtained from: Patient - Additonal information Additional information: 70-year-old woman with past medical history of COPD on home oxygen, daily smoker, alcoholic gastritis, presents with an episode of nonbloody nonbilious nausea and vomiting yesterday. Patient states that she is experiencing abdominal pain at present that is burning, epigastric, nonradiating, attributed to her alcoholic gastritis, gradual onset, worse with alcohol, constant. She is having trouble keeping down solid foods. Denies chest pain, leg swelling, fever, worsening cough. Does endorse some mild dyspnea, worse when she smokes. Review of Systems Ten Systems: 10 systems reviewed and negative Constitutional: denies: Fever, Chills Cardiac: denies: Chest pain / pressure Respiratory: reports: Dyspnea GI: reports: Abdominal Pain, Nausea, Vomiting. 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: Other - Present Medications Home Medications: Ambulatory Orders Medication Instructions Recorded Confirmed Propranolol [Inderal] 10 mg PO BID 09/21/18 05/14/20 Albuterol Sulfate [Proair Hfa 2 puffs INH 05/13/20 Inhaler] Ondansetron Odt [Zofran Odt] 4 mg TL Q6H PRN #10 tablet 05/15/20 - Allergies Allergies/Adverse Reactions: Allergies Allergy/AdvReac Type Severity Reaction Status Date / Time Latex, Natural Rubber Allergy Rash Verified 05/14/20 22:51 lisinopril Allergy Respiratory Verified 05/14/20 22:51 - Social History Does the pt smoke?: Yes Smoking Status: Current every day smoker Does the pt drink ETOH?: Yes Does the pt have substance abuse?: No - Immunizations Immunizations are current?: Yes - POLST Patient has POLST: No POLST Status: Full Code PD ED PE NORMAL - Vitals Vital signs reviewed: Yes - General General: Alert and oriented X 3, No acute distress, Well developed/nourished - HEENT HEENT: Atraumatic, PERRL, EOMI - Neck Neck: Supple, no meningeal sign - Cardiac Cardiac: RRR - Respiratory Respiratory: No respiratory distress, Other (Bilateral end expiratory wheezing. Good airflow bilaterally) - Abdomen Abdomen: Non tender, Non distended, Other (Discomfort to palpation in epigastrium) - Rectal Rectal: Deferred - Back Back: No CVA TTP - Derm Derm: Normal color - Extremities Extremities: No deformity - Neuro Neuro: Alert and oriented X 3 - Psych Psych: Normal mood, Normal affect Results - Vitals Vitals: Vital Signs - 24 hr 05/14/20 05/14/20 05/15/20 22:52 22:55 00:55 Temperature 36.7 C 36.7 C 36.6 C Heart Rate 89 89 86 Respiratory 18 20 20 Rate Blood Pressure 170/91 H 162/89 H 151/82 H O2 Saturation 91 L 94 98 Oxygen O2 Source Room air - Labs Labs: Laboratory Tests 05/14/20 05/14/20 05/14/20 23:34 23:34 23:35 WBC 9.1 RBC 5.04 Hgb 17.3 H Hct 50.7 H MCV 100.6 H MCH 34.3 H MCHC 34.1 RDW 12.9 Plt Count 101 L MPV 12.1 H Neut # (Auto) 6.6 Lymph # (Auto) 1.3 L Wilcox # (Auto) 1.1 H Eos # (Auto) 0.0 Baso # (Auto) 0.1 Absolute Nucleated RBC 0.00 Nucleated RBC % 0.0 VBG pH 7.427 H VBG pCO2 49.8 VBG pO2 52.5 H VBG HCO3 32.1 H VBG Total CO2 33.6 H VBG O2 Saturation 88.0 H VBG Base Excess 6.3 H Sodium 132 L Potassium 3.9 Chloride 92 L Carbon Dioxide 29 Anion Gap 11.0 BUN 8 Creatinine 0.3 L Estimated GFR (MDRD) 219 Glucose 129 H Calcium 8.9 Total Bilirubin 1.6 H AST 134 H ALT 70 H Alkaline Phosphatase 156 H Total Protein 6.5 L Albumin 3.6 Globulin 2.9 Albumin/Globulin Ratio 1.2 Lipase 28 Urine Color Urine Clarity Urine pH Ur Specific [place] Urine Protein Urine Glucose (UA) Urine Ketones Urine Occult Blood Urine Nitrite Urine Bilirubin Urine Urobilinogen Ur Leukocyte Esterase Ur Microscopic Review Urine Culture Comments 05/15/20 01:02 WBC RBC Hgb Hct MCV MCH MCHC RDW Plt Count MPV Neut # (Auto) Lymph # (Auto) Wilcox # (Auto) Eos # (Auto) Baso # (Auto) Absolute Nucleated RBC Nucleated RBC % VBG pH VBG pCO2 VBG pO2 VBG HCO3 VBG Total CO2 VBG O2 Saturation VBG Base Excess Sodium Potassium Chloride Carbon Dioxide Anion Gap BUN Creatinine Estimated GFR (MDRD) Glucose Calcium Total Bilirubin AST ALT Alkaline Phosphatase Total Protein Albumin Globulin Albumin/Globulin Ratio Lipase Urine Color YELLOW Urine Clarity CLEAR Urine pH 7.0 Ur Specific [place] <=1.005 Urine Protein NEGATIVE Urine Glucose (UA) NEGATIVE Urine Ketones NEGATIVE Urine Occult Blood NEGATIVE Urine Nitrite NEGATIVE Urine Bilirubin NEGATIVE Urine Urobilinogen 0.2 (NORMAL) Ur Leukocyte Esterase NEGATIVE Ur Microscopic Review NOT INDICATED Urine Culture Comments NOT INDICATED PD MEDICAL DECISION MAKING - ED course ED course: 70-year-old woman has history of alcohol abuse presents with nausea and vomiting yesterday and upset stomach late this evening. Symptoms have improved with symptomatic care in the emergency department. She has a prescription for an Ativan taper that she is going to try to fill today in order to detox from alcohol. She also is promising to cut back on her smoking. strict return precautions discussed. She will follow up with her doctor at [facility]. Departure - Departure Disposition: Home, Self Care Clinical Impression: Alcoholic gastritis, Vomiting Condition: Good Instructions: Diet Clear Liquid Dc Prescriptions: Ondansetron Odt [Zofran Odt] 4 mg TL Q6H PRN #10 tablet PRN Reason: Nausea / Vomiting Comments: You were seen in the emergency department for nausea and abdominal pain. It looks like you are suffering from alcoholic gastritis, which means that you have inflammation in the stomach lining due to alcohol. Make sure that you fill your prescription tomorrow and try to taper down on your alcohol usage. Eat mild foods and start with clear liquids before graduating onto other things. Follow- up with your primary doctor at [facility]. Return to the emergency department if you develop any new or worsening symptoms or have other concerns.
[2020-05-15 05:07] VITALS: BP 141/78
== END 2020-05-15 05:06 | disposition home or self-care (01) ==
LOC: ED 22:36
DX: K29.20 Alcoholic gastritis without bleeding (principal); F10.10 Alcohol abuse, uncomplicated; J44.9 Chronic obstructive pulmonary disease, unspecified; Z99.81 Dependence on supplemental oxygen; F17.200 Nicotine dependence, unspecified, uncomplicated; I10 Essential (primary) hypertension; Z86.711 Personal history of pulmonary embolism; Z86.718 Personal history of other venous thrombosis and embolism; Z79.01 Long term (current) use of anticoagulants
CPT/HCPCS: 36415; 80053; 81001; 81003; 82803; 83690; 85025; 87086; 93005; 96361; 96374; 99284

== ENCOUNTER 2020-05-29 00:02 | Emergency (ER) | payer MEDICARE, OTHER ==
--- OUTSIDE RECORDS SUMMARY | 2020-05-29 00:05 | EXTERNAL MEDICAL SUMMARY RPT | Continuity of Care Document ---
:1950 Demographics Phone Unavailable Preferred Language Unknown Marital Status Unknown Shinto Affiliation Unknown Race Unknown Ethnic Group Unknown Author Organization [facility] Address [address] [phone] Phone Social History date description facility [phone]
--- NOTE | 2020-05-29 00:34 | ED Physician Documentation ---
PD HPI CHEST PAIN - Stated complaint Stated Complaint: CHEST PRESSURE,SOA - Chief complaint Chief Complaint: Resp - History obtained from History obtained from: Patient - History of Present Illness Timing - onset: Yesterday Timing - onset during: Rest Timing - duration: Days (1) Timing - details: Gradual onset, Still present Quality: Pressure, Tightness Location: Substernal Radiation: No: Jaw, Neck, Back, Abdominal, Left upper extremity, Right upper extremity Improved by: Rest Worsened by: Inspiration, Movement, Palpation Associated symptoms: Shortness of air, Feeling faint / dizzy, General Weakness, Cough (similar to always). No: Diaphoresis, Nausea, Vomiting, Palpitations Similar symptoms before: Diagnosis (COPD exacerbation) Recently seen: Emergency Dept - Additional information Additional information: 70-year-old female with a history of out alcoholic cirrhosis, COPD continues to smoke and drink and she now is complaining of some chest pressure with breathing. She has some shortness of breath and mostly exertional dyspnea. Her cough is unchanged from her baseline and she has not had fever. She does not believe she is infected with Covid. She has had her first shot last month is overdue for her second shot. She has a daughter who works at [employer] no one there has been sick. Review of Systems Constitutional: reports: Fatigue. denies: Fever, Chills Eyes: denies: Decreased vision Ears: denies: Ear pain Nose: denies: Rhinorrhea / runny nose, Congestion Throat: denies: Sore throat Cardiac: reports: Chest pain / pressure, Pedal edema. 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 ADMINISTRATION: Breast cancer : None HEENT: None Psych: Depression, Anxiety Musculoskeletal: Osteoarthritis, Osteoporosis, Chronic back pain Derm: None - Past Surgical History Past Surgical History: Yes General: Colonoscopy, EGD, Other /PROFESSOR OF BUSINESS ADMINISTRATION: Other - Present Medications Home Medications: Ambulatory Orders Medication Instructions Recorded Confirmed Propranolol [Inderal] 10 mg PO BID 09/21/18 05/14/20 Albuterol Sulfate [Proair Hfa 2 puffs INH 05/13/20 Inhaler] Ondansetron Odt [Zofran Odt] 4 mg TL Q6H PRN #10 tablet 05/15/20 chlordiazePOXIDE [Librium] 25 - 50 mg PO Q6H PRN #12 05/29/20 predniSONE [Deltasone] 10 mg PO ONCE #26 tablet 05/29/20 - Allergies Allergies/Adverse Reactions: Allergies Allergy/AdvReac Type Severity Reaction Status Date / Time Latex, Natural Rubber Allergy Rash Verified 05/29/20 00:16 lisinopril Allergy Respiratory Verified 05/29/20 00:16 - Social History Does the pt smoke?: Yes Smoking Status: Current every day smoker Does the pt drink ETOH?: Yes Does the pt have substance abuse?: No - Immunizations Immunizations are current?: Yes - POLST Patient has POLST: No POLST Status: Full Code PD ED PE NORMAL - Vitals Vital signs reviewed: Yes - General General: Alert and oriented X 3, Well developed/nourished, Other (The patient is able to talk in a several word sentence and halts to take a deep breath.) - HEENT HEENT: Atraumatic, PERRL, EOMI, Other (dry mucous membranes ) - Neck Neck: Supple, no meningeal sign, No bony TTP - Cardiac Cardiac: RRR, No murmur - Respiratory Respiratory: Other (diminished breath sounds with bibasilar rhonchi and wheezes. parasternal point tenderness reproduces the pain the patient is experiencing. 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, No motor deficit, No sensory deficit, Normal speech Eye Opening: Spontaneous Motor: Obeys Commands Verbal: Oriented GCS Score: 15 - Psych Psych: Normal mood, Normal affect Results - Vitals Vitals: Vital Signs - 24 hr 05/29/20 05/29/20 05/29/20 00:12 00:20 00:57 Temperature 37.1 C Heart Rate 97 83 72 Respiratory 19 18 14 Rate Blood Pressure 205/91 H 205/91 H 136/80 H O2 Saturation 96 98 98 05/29/20 05/29/20 05/29/20 01:08 01:39 02:28 Temperature Heart Rate 75 71 79 Respiratory 17 19 16 Rate Blood Pressure 150/81 H 146/88 H O2 Saturation 98 98 05/29/20 02:38 Temperature Heart Rate 88 Respiratory 17 Rate Blood Pressure 139/89 H O2 Saturation 98 Oxygen O2 Source Nasal cannula Oxygen Flow Rate 2 - EKG (time done) 0018 Rate: Rate (enter#) (75) Rhythm: NSR Intervals: Prolonged QT Ischemia: Q waves (consistent with anterior infarct), T wave inversion (anterior and lateral ) Compare to prior EKG: Changed from prior EKG (SPT 05-14-2020 the QTc is prolonged and the lead placement has changed. ) Computer interpretation: Agree with computer - Labs Labs: Laboratory Tests 05/29/20 05/29/20 05/29/20 01:00 01:00 01:00 WBC 9.0 RBC 4.49 Hgb 15.4 Hct 46.3 MCV 103.1 H MCH 34.3 H MCHC 33.3 RDW 13.3 Plt Count 162 MPV 11.7 H Neut # (Auto) 6.5 Lymph # (Auto) 1.0 L Hood # (Auto) 1.1 H Eos # (Auto) 0.1 Baso # (Auto) 0.1 Absolute Nucleated RBC 0.00 Nucleated RBC % 0.0 Sodium 136 Potassium 3.9 Chloride 95 L Carbon Dioxide 30 Anion Gap 11.0 BUN 5 L Creatinine 0.3 L Estimated GFR (MDRD) 219 Glucose 106 H Calcium 8.3 L Magnesium 1.9 Total Bilirubin 0.8 AST 89 H ALT 61 H Alkaline Phosphatase 146 H Troponin I High Sens 10.5 B-Natriuretic Peptide Total Protein 6.2 L Albumin 3.3 Globulin 2.9 Albumin/Globulin Ratio 1.1 Lipase 28 Nasal Adenovirus (PCR) Nasal B. parapertussis DNA (PCR) Nasal Coronavir 229E PCR Nasal Coronavir HKU1 PCR Nasal Coronavir NL63 PCR Nasal Coronavir OC43 PCR Nasal Enterovir/Rhinovir PCR Nasal Influenza B PCR Nasal Influenza A PCR Nasal Parainfluen 1 PCR Nasal Parainfluen 2 PCR Nasal Parainfluen 3 PCR Nasal Parainfluen 4 PCR Nasal RSV (PCR) Nasal B.pertussis DNA PCR Nasal C.pneumoniae (PCR) Chris Human Metapneumo PCR Nasal M.pneumoniae (PCR) Nasal SARS-CoV-2 (PCR) Ethyl Alcohol 74.9 05/29/20 05/29/20 01:00 01:30 WBC RBC Hgb Hct MCV MCH MCHC RDW Plt Count MPV Neut # (Auto) Lymph # (Auto) Hood # (Auto) Eos # (Auto) Baso # (Auto) Absolute Nucleated RBC Nucleated RBC % Sodium Potassium Chloride Carbon Dioxide Anion Gap BUN Creatinine Estimated GFR (MDRD) Glucose Calcium Magnesium Total Bilirubin AST ALT Alkaline Phosphatase Troponin I High Sens B-Natriuretic Peptide 155 H Total Protein Albumin Globulin Albumin/Globulin Ratio Lipase Nasal Adenovirus (PCR) NOT DETECTED Nasal B. parapertussis DNA (PCR) NOT DETECTED Nasal Coronavir 229E PCR NOT DETECTED Nasal Coronavir HKU1 PCR NOT DETECTED Nasal Coronavir NL63 PCR NOT DETECTED Nasal Coronavir OC43 PCR NOT DETECTED Nasal Enterovir/Rhinovir PCR NOT DETECTED Nasal Influenza B PCR NOT DETECTED Nasal Influenza A PCR NOT DETECTED Nasal Parainfluen 1 PCR NOT DETECTED Nasal Parainfluen 2 PCR NOT DETECTED Nasal Parainfluen 3 PCR NOT DETECTED Nasal Parainfluen 4 PCR NOT DETECTED Nasal RSV (PCR) NOT DETECTED Nasal B.pertussis DNA PCR NOT DETECTED Nasal C.pneumoniae (PCR) NOT DETECTED Chris Human Metapneumo PCR NOT DETECTED Nasal M.pneumoniae (PCR) NOT DETECTED Nasal SARS-CoV-2 (PCR) NOT DETECTED Ethyl Alcohol - Rads (name of study) chest Radiology: Prelim report reviewed (Impression: 1. No acute cardiopulmonary process.), EMP read indepedently (Emphysematous chest without infiltrate single breast implant on the left), See rad report Procedures - IVC sono (time) 0050 Bedside IVC sono: IVC measures (cm) (1.14), IVC collapsed c insp (cm) (complete), Dehydration (est 1 liter deficit.) PD MEDICAL DECISION MAKING - ED course Complexity details: reviewed old records, reviewed results, re-evaluated patient, considered differential, d/w patient ED course: 70-year-old female with a history of COPD and alcoholic cirrhosis has developed increasing shortness of breath her cough is unchanged from baseline her sputum is unchanged from baseline and she is afebrile. She has developed chest pressure associated with this and has a tender chest wall reproducing her symptoms. She has a prolonged QTC on her electrocardiogram. Here in the emergency department an IV is begun she is given a banana bag and 10 mg of dexamethasone intravenously. She is given a DuoNeb treatment and an in anticipation of possible admission to the hospital a respiratory PCR is obtained.The patient's work-up indicates no evidence of pneumonia or coronary syndrome and she does have reproducible chest wall tenderness and is diagnosed with costochondritis. She is administered dexamethasone here in the emergency department as well as Toradol and she has some improvement.I did discuss with the patient alcohol withdrawal again and we have provided a prescription for Librium.I did discuss with the patient use of pain medication for the chest wall discomfort and she declined. Departure - Departure Disposition: Home, Self Care Clinical Impression: Acute costochondritis, COPD exacerbation Condition: Stable Instructions: ED COPD Flare, ED Chest Pain Costochondritis Follow-Up: [facility] Scott [Provider Group] Prescriptions: predniSONE [Deltasone] 10 mg PO ONCE #26 tablet chlordiazePOXIDE [Librium] 25 - 50 mg PO Q6H PRN #12 PRN Reason: withdrawal symptoms Comments: Today the chest pain you are having is a result of chest wall fatigue from an exacerbation of your COPD. Treatment of the COPD will help with your symptoms. Take prednisone as prescribed. Use your rescue inhaler as needed. Continue your Advair as previously.When you go to discontinue your alcohol use the Librium to help with withdrawal symptoms.You will need more medication the first day and less day by day. This medication is sedating.
--- OUTSIDE RECORDS SUMMARY | 2020-05-29 00:37 | EXTERNAL MEDICAL SUMMARY RPT | Continuity of Care Document ---
:1950 Demographics Phone Unavailable Preferred Language Unknown Marital Status Unknown Mormon Affiliation Unknown Race Unknown Ethnic Group Unknown Author Organization [facility] Address [address] [phone] Phone Social History date description facility [phone]
[2020-05-29] MEDS ORDERED: FOLIC ACID INJ 1 MG, THIAMINE INJ 100 MG, MAGNESIUM SULFATE 2 GM, MULTIVITAMIN 10 ML in... IV STA ×5 (00:55)
[2020-05-29] MEDS ORDERED: DEXAMETHASONE 10 MG/ML VIAL IVP STA (00:56)
[2020-05-29] MEDS ORDERED: IPRATROPIUM/ALBUTEROL 3 ML NEB INH STA (00:56)
[2020-05-29] MEDS ORDERED: FOLIC ACID 5 MG/1 ML 10ML MDV ONE (01:11)
[2020-05-29] MEDS ORDERED: THIAMINE 100 MG/1 ML 2 ML MDV ONE (01:11)
[2020-05-29] MEDS ORDERED: MAGNESIUM SULFATE 1 GM/2 ML VIAL ONE (01:11)
[2020-05-29] MEDS ORDERED: KETOROLAC 30 MG/ML VIAL IVP STA (01:24)
[2020-05-29 01:49] LABS: BASOPHILS # (AUTO) 0.1 10^3/uL (0.0-0.1); BASOPHILS % (AUTO) 0.9 %; EOSINOPHILS # (AUTO) 0.1 10^3/uL (0.0-0.7); EOSINOPHILS % (AUTO) 1.6 %; HCT - HEMATOCRIT 46.3 % (37.0-47.0); HGB - HEMOGLOBIN 15.4 g/dL (12.0-16.0); LYMPHOCYTES % (AUTO) 11.4 %; MEAN CORPUSCULAR HEMOGLOBIN 34.3 pg (27.0-31.0); MEAN CORPUSCULAR HGB CONC 33.3 g/dL (32.0-36.0); MEAN CORPUSCULAR VOLUME 103.1 fL (81.0-99.0); MEAN PLATELET VOLUME 11.7 fL (7.9-10.8); MONOCYTES # (AUTO) 1.1 10^3/uL (0.0-1.0); MONOCYTES % (AUTO) 12.7 %; NEUTROPHILS # (AUTO) 6.5 10^3/uL (1.5-6.6); NEUTROPHILS % (AUTO) 73.1 %; PLT - PLATELET COUNT 162 10^3/uL (130-450); RED BLOOD COUNT 4.49 10^6/uL (4.20-5.40); RED CELL DISTRIBUTION WIDTH 13.3 % (12.0-15.0)
[2020-05-29 01:56] LABS: ALBUMIN 3.3 g/dL (3.2-5.5); ALBUMIN/GLOBULIN RATIO 1.1 (1.0-2.2); BILIRUBIN,TOTAL 0.8 mg/dL (0.2-1.0); CALCIUM 8.3 mg/dL (8.5-10.3); CREATININE 0.3 mg/dL (0.4-1.0); ETOH - ETHANOL 74.9 mg/dL; MAGNESIUM 1.9 mg/dL (1.7-2.8); POTASSIUM 3.9 mmol/L (3.5-5.0); TOTAL PROTEIN 6.2 g/dL (6.7-8.2)
[2020-05-29 02:29] LABS: B. PARAPERTUSSIS- RESP PCR PAN NOT DETECTED; B. PERTUSSIS- RESP PCR PANEL NOT DETECTED; C. PNEUMONIAE- RESP PCR PANEL NOT DETECTED; CORONAVIRUS 229E-RESP PCR NOT DETECTED; CORONAVIRUS HKU1-RESP PCR NOT DETECTED; CORONAVIRUS NL63-RESP PCR NOT DETECTED; CORONAVIRUS OC43-RESP PCR NOT DETECTED; HUMAN METAPNEUMOVIRUS NOT DETECTED; INFLUENZA A- RESP PCR PANEL NOT DETECTED; INFLUENZA B - RESP PCR PANEL NOT DETECTED; M. PNEUMONIAE- RESP PCR PANEL NOT DETECTED; PARAINFLUENZA VIRUS 1 NOT DETECTED; PARAINFLUENZA VIRUS 2 NOT DETECTED; PARAINFLUENZA VIRUS 3 NOT DETECTED; PARAINFLUENZA VIRUS 4 NOT DETECTED; RHINOVIRUS/ENTEROVIRUS NOT DETECTED; RSV- RESP PCR PANEL NOT DETECTED; SARS-CoV-2 -RESP PCR PANEL NOT DETECTED
[2020-05-29 02:39] VITALS: BP 139/89
--- NOTE | 2020-05-29 07:58 | XRAY Report ---
PROCEDURE: Chest 1 View X-Ray INDICATIONS: chest pain TECHNIQUE: One view of the chest was acquired. COMPARISON: 05/13/2020 FINDINGS: Surgical changes and devices: None. Lungs and pleura: No pleural effusions or pneumothorax. Scattered subsegmental scarring/atelectasis . No acute consolidation. Lungs mildly hyperinflated. Mediastinum: Mediastinal contours appear normal. Heart size is normal. Bilateral shoulder joint degeneration. IMPRESSION: Scattered subsegmental scarring/atelectasis. No acute consolidation. Reviewed by: Myles Miller MD on 05/29/2020 7:56 AM PDT Approved by: Myles Miller MD on 05/29/2020 7:56 AM PDT Station ID: [id number]
== END 2020-05-29 03:19 | disposition home or self-care (01) ==
LOC: ED 00:02
DX: M94.0 Chondrocostal junction syndrome [Tietze] (principal); J43.9 Emphysema, unspecified; K70.30 Alcoholic cirrhosis of liver without ascites; F17.200 Nicotine dependence, unspecified, uncomplicated; I11.0 Hypertensive heart disease with heart failure; I50.9 Heart failure, unspecified; F32.9 Major depressive disorder, single episode, unspecified; F41.9 Anxiety disorder, unspecified; I25.2 Old myocardial infarction; Z79.51 Long term (current) use of inhaled steroids; Z20.822 Contact with and (suspected) exposure to COVID-19; Z79.899 Other long term (current) drug therapy; Z86.718 Personal history of other venous thrombosis and embolism
CPT/HCPCS: 36415; 71045; 80053; 83690; 83735; 83880; 84484; 85025; 87631; 93005; 94640; 96365; 96375; 99284; G0480; J3411; 0202U; 80320

== ENCOUNTER 2020-06-03 20:51 | Emergency (ER) | payer MEDICARE, OTHER ==
--- OUTSIDE RECORDS SUMMARY | 2020-06-03 20:55 | EXTERNAL MEDICAL SUMMARY RPT | Continuity of Care Document ---
:1950 Demographics Phone Unavailable Preferred Language Unknown Marital Status Unknown Taoism Affiliation Unknown Race Unknown Ethnic Group Unknown Author Organization [facility] Address [address] [phone] Phone Social History date description facility [phone]
--- OUTSIDE RECORDS SUMMARY | 2020-06-03 21:00 | EXTERNAL MEDICAL SUMMARY RPT | Continuity of Care Document ---
:1950 Demographics Phone Unavailable Preferred Language Unknown Marital Status Unknown Taoism Affiliation Unknown Race Unknown Ethnic Group Unknown Author Organization [facility] Address [address] [phone] Phone Social History date description facility [phone]
[2020-06-03 22:46] LABS: BASOPHILS # (AUTO) 0.1 10^3/uL (0.0-0.1); BASOPHILS % (AUTO) 0.4 %; EOSINOPHILS # (AUTO) 0.1 10^3/uL (0.0-0.7); EOSINOPHILS % (AUTO) 0.4 %; HCT - HEMATOCRIT 47.1 % (37.0-47.0); HGB - HEMOGLOBIN 16.2 g/dL (12.0-16.0); LYMPHOCYTES % (AUTO) 7.2 %; MEAN CORPUSCULAR HEMOGLOBIN 34.7 pg (27.0-31.0); MEAN CORPUSCULAR HGB CONC 34.4 g/dL (32.0-36.0); MEAN CORPUSCULAR VOLUME 100.9 fL (81.0-99.0); MEAN PLATELET VOLUME 10.6 fL (7.9-10.8); MONOCYTES # (AUTO) 1.1 10^3/uL (0.0-1.0); MONOCYTES % (AUTO) 8.1 %; NEUTROPHILS # (AUTO) 11.2 10^3/uL (1.5-6.6); NEUTROPHILS % (AUTO) 83.3 %; PLT - PLATELET COUNT 170 10^3/uL (130-450); RED BLOOD COUNT 4.67 10^6/uL (4.20-5.40); RED CELL DISTRIBUTION WIDTH 13.2 % (12.0-15.0); WHITE BLOOD COUNT 13.4 x10^3/uL (4.8-10.8)
[2020-06-03 22:51] LABS: PT - PROTHROMBIN TIME 11.6 secs (9.9-12.6)
[2020-06-03 22:59] LABS: PARTIAL THROMBOPLASTIN TIME 25.8 secs (24.9-33.3)
[2020-06-03] MEDS ORDERED: SODIUM CHLORIDE 0.9% 1,000 ML IV STA (23:01)
[2020-06-03] MEDS ORDERED: ONDANSETRON 4 MG/2 ML VIAL IVP STA (23:01)
[2020-06-03 23:05] LABS: ALBUMIN 3.3 g/dL (3.2-5.5); ALBUMIN/GLOBULIN RATIO 1.1 (1.0-2.2); ALKALINE PHOSPHATASE 139 IU/L (42-121); ALT ALANINE AMINOTRANSFERASE 47 IU/L (10-60); AST ASPARTATE AMINOTRANSFERASE 62 IU/L (10-42); BILIRUBIN,TOTAL 1.5 mg/dL (0.2-1.0); BUN - BLOOD UREA NITROGEN 6 mg/dL (6-20); CALCIUM 8.5 mg/dL (8.5-10.3); CARBON DIOXIDE - CO2 31 mmol/L (21-32); CHLORIDE 93 mmol/L (101-111); CREATININE < 0.3 mg/dL (0.4-1.0); ETOH - ETHANOL < 5.0 mg/dL; GLUCOSE 124 mg/dL (70-100); LIPASE 25 U/L (22-51); SODIUM 133 mmol/L (135-145); TOTAL PROTEIN 6.3 g/dL (6.7-8.2)
[2020-06-04] MEDS ORDERED: IOPAMIDOL-300 100 ML VIAL ONE (00:36)
[2020-06-04] MEDS ORDERED: IOPAMIDOL-300 100 ML VIAL IVP ONE (01:43)
[2020-06-04 02:46] LABS: BILIRUBIN,URINE NEGATIVE (NEGATIVE); GLUCOSE, URINE (UA) NEGATIVE (NEGATIVE); KETONES,URINE (UA) NEGATIVE (NEGATIVE); LEUKOCYTE ESTERASE, URINE NEGATIVE (NEGATIVE); NITRITE,URINE NEGATIVE (NEGATIVE); OCCULT BLOOD,URINE NEGATIVE (NEGATIVE); PH,URINE 6.5 PH (5.0-7.5); PROTEIN,URINE NEGATIVE (NEGATIVE); UROBILINOGEN,URINE 0.2 (NORMAL) E.U./dL (NORMAL)
[2020-06-04 02:47] LABS: CLARITY,URINE CLEAR (CLEAR)
[2020-06-04] MEDS ORDERED: LORazepam 2 MG/ML VIAL IVP STA (02:51)
[2020-06-04] MEDS ORDERED: SODIUM CHLORIDE 0.9% 1,000 ML IV STA (03:19)
[2020-06-04] MEDS ORDERED: HEPARIN 25000UNITS/500ML (D5W) 25,000 UNIT/500 ML BAG IV SCH (04:00)
--- NOTE | 2020-06-04 04:48 | ED Physician Documentation ---
History of Present Illness - Stated complaint Stated Complaint: SOA, WEAKNESS, N/V, DIAREHEA, DEHYDRATION - Chief complaint Chief Complaint: Abd Pain - History obtained from History obtained from: Patient - History of Present Illness Timing: Today (this morning) Pain level max: 4 Pain level now: 2 Improved by: rest Worsened by: exertion Associated symptoms: chest pain, dyspnea, nausea, diarrhea - Additonal information Additional information: patient c/o chest pain, shortness of breath, abdominal pain, diarrhea, nausea. Patient had her second COVID vaccination this morning and within 1-2 hours, experienced diarrhea and abdominal cramping that is diffuse. her chest pain and dyspnea have been waxing and waning for several days. She says she ran out of her xarelto 3 days ago, which she takes for h/o PE. This is her 4th [facility] ED vis it this month; before this visit, she was last here 5 days ago. Review of Systems Constitutional: reports: Myalgias, Fatigue. denies: Fever, Chills, Sweats Eyes: reports: Reviewed and negative Ears: reports: Reviewed and negative Nose: reports: Reviewed and negative Throat: reports: Reviewed and negative Cardiac: reports: Chest pain / pressure. denies: Palpitations, Pedal edema, Calf pain Respiratory: reports: Dyspnea GI: reports: Abdominal Pain, Nausea, Diarrhea. denies: Abdominal Swelling, Vomiting, Constipation, Hematemesis, Bloody / black stool : denies: Dysuria, Frequency Skin: reports: Reviewed and negative Musculoskeletal: reports: Reviewed and negative Neurologic: reports: Generalized weakness. 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: Breast cancer : None HEENT: None Psych: Depression, Anxiety Musculoskeletal: Osteoarthritis, Osteoporosis, Chronic back pain Derm: None - Past Surgical History Past Surgical History: Yes General: Colonoscopy, EGD, Other /POT SANDER: Other - Present Medications Home Medications: Ambulatory Orders Medication Instructions Recorded Confirmed Propranolol [Inderal] 10 mg PO BID 09/21/18 05/14/20 Albuterol Sulfate [Proair Hfa 2 puffs INH 05/13/20 Inhaler] - Allergies Allergies/Adverse Reactions: Allergies Allergy/AdvReac Type Severity Reaction Status Date / Time Latex, Natural Rubber Allergy Rash Verified 06/03/20 21:02 lisinopril Allergy Respiratory Verified 06/03/20 21:02 - Social History Does the pt smoke?: Yes Smoking Status: Current every day smoker Does the pt drink ETOH?: Yes Does the pt have substance abuse?: No - Immunizations Immunizations are current?: Yes - POLST Patient has POLST: No POLST Status: Full Code PD ED PE NORMAL - Vitals Vital signs reviewed: Yes - General General: Alert and oriented X 3, Well developed/nourished, Other (appears mildly anxious) - HEENT HEENT: PERRL, EOMI, Other (tacky/pasty mucous membranes) - Cardiac Cardiac: RRR, No murmur - Respiratory Respiratory: No respiratory distress - Abdomen Abdomen: Soft, Non distended, Other (TTP across upper abdomen and periumbilicus without rebound or guarding) - Back Back: No CVA TTP - Derm Derm: Normal color, Warm and dry - Extremities Extremities: No edema - Neuro Neuro: Alert and oriented X 3 Eye Opening: Spontaneous Motor: Obeys Commands Verbal: Oriented GCS Score: 15 PD ED PE EXPANDED - Respiratory Respiratory: Decreased breath sounds (bilaterally) Results - Vitals Vitals: Vital Signs - 24 hr 06/03/20 06/03/20 06/03/20 20:56 21:59 23:02 Temperature 36.6 C Heart Rate 74 87 77 Respiratory 17 16 16 Rate Blood Pressure 186/90 H 157/103 H 136/79 H O2 Saturation 97 96 94 06/04/20 06/04/20 06/04/20 01:00 02:37 04:00 Temperature 36.4 C L Heart Rate 73 81 Respiratory 20 18 22 Rate Blood Pressure 119/68 122/73 O2 Saturation 91 L 93 Oxygen O2 Source Nasal cannula - EKG (time done) No standard instances Rate: Rate (enter#) (77) Rhythm: NSR, LETICIA Guston: Normal Intervals: Normal AR Ischemia: ST depression (V4-V6), Q waves (V1-V3), T wave inversion (V4-V6) - Labs Labs: Laboratory Tests 06/03/20 06/03/20 06/03/20 22:40 22:40 22:40 WBC 13.4 H RBC 4.67 Hgb 16.2 H Hct 47.1 H MCV 100.9 H MCH 34.7 H MCHC 34.4 RDW 13.2 Plt Count 170 MPV 10.6 Neut # (Auto) 11.2 H Lymph # (Auto) 1.0 L [place] # (Auto) 1.1 H Eos # (Auto) 0.1 Baso # (Auto) 0.1 Absolute Nucleated RBC 0.00 Nucleated RBC % 0.0 PT 11.6 INR 1.0 APTT 25.8 Sodium 133 L Potassium 4.0 Chloride 93 L Carbon Dioxide 31 Anion Gap 9.0 BUN 6 Creatinine < 0.3 L Estimated GFR (MDRD) TNP Glucose 124 H Calcium 8.5 Total Bilirubin 1.5 H AST 62 H ALT 47 Alkaline Phosphatase 139 H Troponin I High Sens B-Natriuretic Peptide Total Protein 6.3 L Albumin 3.3 Globulin 3.0 Albumin/Globulin Ratio 1.1 Lipase 25 Urine Color Urine Clarity Urine pH Ur Specific [place] Urine Protein Urine Glucose (UA) Urine Ketones Urine Occult Blood Urine Nitrite Urine Bilirubin Urine Urobilinogen Ur Leukocyte Esterase Ur Microscopic Review Urine Culture Comments Nasal Adenovirus (PCR) Nasal B. parapertussis DNA (PCR) Nasal Coronavir 229E PCR Nasal Coronavir HKU1 PCR Nasal Coronavir NL63 PCR Nasal Coronavir OC43 PCR Nasal Enterovir/Rhinovir PCR Nasal Influenza B PCR Nasal Influenza A PCR Nasal Parainfluen 1 PCR Nasal Parainfluen 2 PCR Nasal Parainfluen 3 PCR Nasal Parainfluen 4 PCR Nasal RSV (PCR) Nasal B.pertussis DNA PCR Nasal C.pneumoniae (PCR) [place]aleb Human Metapneumo PCR Nasal M.pneumoniae (PCR) Nasal SARS-CoV-2 (PCR) Ethyl Alcohol < 5.0 06/03/20 06/03/20 06/04/20 22:40 22:40 00:15 WBC RBC Hgb Hct MCV MCH MCHC RDW Plt Count MPV Neut # (Auto) Lymph # (Auto) [place] # (Auto) Eos # (Auto) Baso # (Auto) Absolute Nucleated RBC Nucleated RBC % PT INR APTT Sodium Potassium Chloride Carbon Dioxide Anion Gap BUN Creatinine Estimated GFR (MDRD) Glucose Calcium Total Bilirubin AST ALT Alkaline Phosphatase Troponin I High Sens 76.7 H* B-Natriuretic Peptide 276 H Total Protein Albumin Globulin Albumin/Globulin Ratio Lipase Urine Color YELLOW Urine Clarity CLEAR Urine pH 6.5 Ur Specific [place] 1.010 Urine Protein NEGATIVE Urine Glucose (UA) NEGATIVE Urine Ketones NEGATIVE Urine Occult Blood NEGATIVE Urine Nitrite NEGATIVE Urine Bilirubin NEGATIVE Urine Urobilinogen 0.2 (NORMAL) Ur Leukocyte Esterase NEGATIVE Ur Microscopic Review NOT INDICATED Urine Culture Comments NOT INDICATED Nasal Adenovirus (PCR) Nasal B. parapertussis DNA (PCR) Nasal Coronavir 229E PCR Nasal Coronavir HKU1 PCR Nasal Coronavir NL63 PCR Nasal Coronavir OC43 PCR Nasal Enterovir/Rhinovir PCR Nasal Influenza B PCR Nasal Influenza A PCR Nasal Parainfluen 1 PCR Nasal Parainfluen 2 PCR Nasal Parainfluen 3 PCR Nasal Parainfluen 4 PCR Nasal RSV (PCR) Nasal B.pertussis DNA PCR Nasal C.pneumoniae (PCR) [place] Human Metapneumo PCR Nasal M.pneumoniae (PCR) Nasal SARS-CoV-2 (PCR) Ethyl Alcohol 06/04/20 06/04/20 00:40 03:50 WBC RBC Hgb Hct MCV MCH MCHC RDW Plt Count MPV Neut # (Auto) Lymph # (Auto) [place] # (Auto) Eos # (Auto) Baso # (Auto) Absolute Nucleated RBC Nucleated RBC % PT INR APTT Sodium Potassium Chloride Carbon Dioxide Anion Gap BUN Creatinine Estimated GFR (MDRD) Glucose Calcium Total Bilirubin AST ALT Alkaline Phosphatase Troponin I High Sens 111.0 H* B-Natriuretic Peptide Total Protein Albumin Globulin Albumin/Globulin Ratio Lipase Urine Color Urine Clarity Urine pH Ur Specific [place] Urine Protein Urine Glucose (UA) Urine Ketones Urine Occult Blood Urine Nitrite Urine Bilirubin Urine Urobilinogen Ur Leukocyte Esterase Ur Microscopic Review Urine Culture Comments Nasal Adenovirus (PCR) NOT DETECTED Nasal B. parapertussis DNA (PCR) NOT DETECTED Nasal Coronavir 229E PCR NOT DETECTED Nasal Coronavir HKU1 PCR NOT DETECTED Nasal Coronavir NL63 PCR NOT DETECTED Nasal Coronavir OC43 PCR NOT DETECTED Nasal Enterovir/Rhinovir PCR NOT DETECTED Nasal Influenza B PCR NOT DETECTED Nasal Influenza A PCR NOT DETECTED Nasal Parainfluen 1 PCR NOT DETECTED Nasal Parainfluen 2 PCR NOT DETECTED Nasal Parainfluen 3 PCR NOT DETECTED Nasal Parainfluen 4 PCR NOT DETECTED Nasal RSV (PCR) NOT DETECTED Nasal B.pertussis DNA PCR NOT DETECTED Nasal C.pneumoniae (PCR) NOT DETECTED [place] Human Metapneumo PCR NOT DETECTED Nasal M.pneumoniae (PCR) NOT DETECTED Nasal SARS-CoV-2 (PCR) NOT DETECTED Ethyl Alcohol - Rads (name of study) CT A/P with IV contrast Radiology: Prelim report reviewed, See rad report PD MEDICAL DECISION MAKING - ED course Complexity details: reviewed old records, reviewed results, re-evaluated patient, considered differential, d/w patient ED course: patient presents with a number of symptoms that vary in time of onset. she says she has developed abdominal pain, nausea, diarrhea since yesterday morning shortly after receiving her second COVID vaccine; however, she has had previous [facility] ED visits this month for similar symptoms. she also c/o episodic chest pain over past several days with steadily worsening dyspnea. CT A/P performed tonight shows no acute findings, and this includes "liver, gallbladder, pancreas, spleen, adrenal glands, and kidneys are unremarkble" (per radiologist's interpretation). Patient had CXR performed on previous visit (05/29/20) which showed no acute process (but hyperexpansion c/w emphysema), and thus I did not perform cxr tonight. I note that she had lateral T wave inversion on 05/14 that was not present on 05/13, and these appear to deepen on the EKG performed 05/29. Her troponin was normal on 05/29 but tonight it is 76.7 and 2-hour repeat is 111. The Q waves on tonight's EKG have been present on previous EKGs going back at least several months. She has h/o COPD but says she only uses oxygen PRN and typically only 1 liter/min at night. During ED stay she desaturates when asleep (as low as mid-70s), but improves when woken (and instructed to breathe through nose, with 4 liters/min [place] oxygen applied) and rapidly improves to low 90s. Because of her significant T inversions with ST depression and elevated troponins, I contacted [facility] and spoke with hospitalist (Dr. Francis) who accepts transfer to [facility]; she recommends heparin per PE protocol, and this is initiated in [facility] ED prior to transfer. Departure - Departure Disposition: 02 Transfer Acute Care Hosp Clinical Impression: NSTEMI (non-ST elevated myocardial infarction) Condition: Stable Discharge Date/Time: 06/04/20 05:26
[2020-06-04 04:50] LABS: B. PARAPERTUSSIS- RESP PCR PAN NOT DETECTED; B. PERTUSSIS- RESP PCR PANEL NOT DETECTED; C. PNEUMONIAE- RESP PCR PANEL NOT DETECTED; CORONAVIRUS 229E-RESP PCR NOT DETECTED; CORONAVIRUS HKU1-RESP PCR NOT DETECTED; CORONAVIRUS NL63-RESP PCR NOT DETECTED; CORONAVIRUS OC43-RESP PCR NOT DETECTED; HUMAN METAPNEUMOVIRUS NOT DETECTED; INFLUENZA A- RESP PCR PANEL NOT DETECTED; INFLUENZA B - RESP PCR PANEL NOT DETECTED; M. PNEUMONIAE- RESP PCR PANEL NOT DETECTED; PARAINFLUENZA VIRUS 1 NOT DETECTED; PARAINFLUENZA VIRUS 2 NOT DETECTED; PARAINFLUENZA VIRUS 3 NOT DETECTED; PARAINFLUENZA VIRUS 4 NOT DETECTED; RHINOVIRUS/ENTEROVIRUS NOT DETECTED; RSV- RESP PCR PANEL NOT DETECTED; SARS-CoV-2 -RESP PCR PANEL NOT DETECTED
[2020-06-04 05:13] VITALS: BP 122/73
--- NOTE | 2020-06-04 08:00 | CT Report ---
PROCEDURE: Abdomen/Pelvis W INDICATIONS: abdominal pain CONTRAST: IV CONTRAST: Isovue 300 ml: 100 PO CONTRAST: *NO PO CONTRAST TECHNIQUE: After the administration of intravenous contrast, 5 mm thick sections acquired from the diaphragms to the symphysis. 5 mm thick coronal and sagittal reformats were acquired. For radiation dose reducti on, the following was used: automated exposure control, adjustment of mA and/or kV according to maci ent size. COMPARISON: 09/21/1989 FINDINGS: Image quality: Excellent. ABDOMEN: Lung bases: Minimal atelectasis versus scarring in the extreme right lung base. Heart size is normal. Solid organs: Liver and spleen are normal in size and enhancement. Diffuse hepatic steatosis. Gallbl adder is unremarkable. Biliary system is non dilated. Pancreas enhances normally. No adrenal nodul es. Kidneys demonstrate normal size and enhancement, without hydronephrosis. Peritoneum and bowel: Bowel loops demonstrate normal wall thickness and caliber. Previous large volu me ascites no longer present. No free air or abscess cavity. Nodes and vessels: No retroperitoneal or mesenteric adenopathy by size criteria. Aorta and inferior vena cava are normal in size. Diffuse atherosclerosis involving the aorta and visceral vessels and iliacs. Miscellaneous: No ventral hernias. PELVIS: Genitourinary: Bladder wall thickness is normal. Miscellaneous: No inguinal hernias or adenopathy. Bones: No suspicious bony lesions. No vertebral body compression fractures. IMPRESSION: 1. Resolution of previous large volume ascites. 2. No evidence acute abdominal process. 3. Hepatic steatosis. 4. Diffuse atherosclerosis. A preliminary report with the above findings was provided at the time of the study by [facility]. Reviewed by: Silvestre Farris MD on 06/04/2020 7:59 AM PDT Approved by: Silvestre Farris MD on 06/04/2020 7:59 AM PDT Station ID: [id number]
== END 2020-06-04 05:26 | disposition short-term general hospital (02) ==
LOC: ED 20:51
DX: I21.4 Non-ST elevation (NSTEMI) myocardial infarction (principal); Z20.822 Contact with and (suspected) exposure to COVID-19; R19.7 Diarrhea, unspecified; I10 Essential (primary) hypertension; J43.9 Emphysema, unspecified; F17.200 Nicotine dependence, unspecified, uncomplicated; Z86.711 Personal history of pulmonary embolism; Z86.718 Personal history of other venous thrombosis and embolism; Z79.01 Long term (current) use of anticoagulants
CPT/HCPCS: 36415; 74177; 80053; 81003; 83690; 83880; 84484; 85025; 85610; 85730; 87631; 93005; 96374; 96375; 99284; 99285; G0480; J2060; Q9967; 0202U; 80320; 81001; 87086

== ENCOUNTER 2020-06-04 05:25 | Outpatient (CLI) | payer MEDICARE, OTHER | END 2020-06-04 05:26 | disposition short-term general hospital (02) | LOC: EMS 05:25 | PROVIDERS: ATTEND Emergency Medicine | DX: I21.4 Non-ST elevation (NSTEMI) myocardial infarction (principal) | CPT/HCPCS: A0425; A0426 ==

== ENCOUNTER 2020-06-18 16:57 | Inpatient (IN) | payer MEDICARE, OTHER ==
--- OUTSIDE RECORDS SUMMARY | 2020-06-18 17:01 | EXTERNAL MEDICAL SUMMARY RPT | Continuity of Care Document ---
:1950 Demographics Phone Unavailable Preferred Language Unknown Marital Status Unknown Gnosticism Affiliation Unknown Race Unknown Ethnic Group Unknown Author Organization [place] Address [address] [place] [address] Phone Problems date description facility [id number] Other specified abnormalities of plasma [employer] proteins
[2020-06-18] MEDS ORDERED: IPRATROPIUM/ALBUTEROL 3 ML NEB INH STA (17:10)
[2020-06-18] MEDS ORDERED: methylPREDNISolone SUCCINATE 125 MG/2 ML VIAL IVP STA (17:10)
[2020-06-18] MEDS ORDERED: ALBUTEROL NEB 2.5 MG/3 ML INH STA (17:10)
--- OUTSIDE RECORDS SUMMARY | 2020-06-18 17:25 | EXTERNAL MEDICAL SUMMARY RPT | Continuity of Care Document ---
:1950 Demographics Phone Unavailable Preferred Language Unknown Marital Status Unknown Sikh Affiliation Unknown Race Unknown Ethnic Group Unknown Author Organization [place] Address [address] [place] [address] Phone Problems date description facility [id number] Other specified abnormalities of plasma [employer] proteins
--- NOTE | 2020-06-18 17:29 | ED Physician Documentation ---
PD HPI CHEST PAIN - Stated complaint Stated Complaint: SOA - Chief complaint Chief Complaint: Resp - History obtained from History obtained from: Patient - Additional information Additional information: 70-year-old woman with history of COPD presents with shortness of breath that is severe today. She still smokes, wears 2 L of oxygen at home. Of note she was seen by one of my partners the evening of June 03 for chest pain and trouble breathing. She had a high-sensitivity troponin of 76.[address] [facility] for further evaluation. Patient states she has no heart problems though. She has had severe shortness of breath today, says the work-up at [facility] was negative. Just "bruising." She has a year-long cough productive of white sputum. Review of Systems Ten Systems: 10 systems reviewed and negative Constitutional: denies: Fever, Chills Cardiac: denies: Chest pain / pressure, Palpitations, Pedal edema, Calf pain Respiratory: reports: Wheezing. denies: Hemoptysis PD PAST MEDICAL HISTORY - Past Medical History Cardiovascular: Congestive heart failure, Hypertension, High cholesterol, Deep vein thrombosis, [place] Respiratory: COPD, Emphysema Neuro: None, Other Endocrine/Autoimmune: None GI: Other PULMONARY CARE NURSE: Breast cancer : None HEENT: None Psych: Depression, Anxiety Musculoskeletal: Osteoarthritis, Osteoporosis, Chronic back pain Derm: None - Past Surgical History Past Surgical History: Yes General: Colonoscopy, EGD, Other /PULMONARY CARE NURSE: Other - Present Medications Home Medications: Ambulatory Orders Medication Instructions Recorded Confirmed Propranolol [Inderal] 10 mg PO BID 09/21/18 05/14/20 Albuterol Sulfate [Proair Hfa 2 puffs INH 05/13/20 Inhaler] - Allergies Allergies/Adverse Reactions: Allergies Allergy/AdvReac Type Severity Reaction Status Date / Time Latex, Natural Rubber Allergy Rash Verified 06/18/20 17:36 lisinopril Allergy Respiratory Verified 06/18/20 17:36 - Social History Does the pt smoke?: Yes Smoking Status: Current every day smoker Does the pt drink ETOH?: Yes Does the pt have substance abuse?: No - Immunizations Immunizations are current?: Yes - POLST Patient has POLST: No POLST Status: Full Code PD ED PE NORMAL - Vitals Vital signs reviewed: Yes - General General: Alert and oriented X 3, Other (Speaking in full sentences but appears labored, note saturations quite low) - HEENT HEENT: PERRL, EOMI - Neck Neck: Supple, no meningeal sign, No bony TTP - Cardiac Cardiac: RRR, No murmur - Respiratory Respiratory: Other (Tachypneic with very diminished breath sounds throughout.) - Abdomen Abdomen: Soft, Non tender - Back Back: No CVA TTP, No spinal TTP - Derm Derm: Normal color, Warm and dry - Extremities Extremities: No edema, No calf tenderness / cord - Neuro Neuro: Alert and oriented X 3, Normal speech Results - Vitals Vitals: Vital Signs - 24 hr 06/18/20 06/18/20 06/18/20 17:08 17:20 17:30 Temperature 36.6 C Heart Rate 116 H 117 H 124 H Respiratory 26 H 36 H 20 Rate Blood Pressure 203/102 H O2 Saturation 58 L 100 06/18/20 06/18/20 06/18/20 17:55 17:58 18:06 Temperature Heart Rate 114 H 120 H 107 H Respiratory 36 H 22 Rate Blood Pressure 191/111 H 169/99 H O2 Saturation 98 95 06/18/20 18:30 Temperature Heart Rate 91 Respiratory 25 H Rate Blood Pressure 129/81 H O2 Saturation 95 Oxygen O2 Source BIPAP Oxygen Flow Rate 2 - EKG (time done) 1720 Rate: Rate (enter#) (116) Rhythm: Sinus tachycardia [place]: LAD Ischemia: Other (Hard to discern anything useful because of the amount of artifact,) - Labs Labs: Laboratory Tests 06/18/20 06/18/20 06/18/20 17:25 17:25 17:25 WBC 14.7 H RBC 4.45 Hgb 15.5 Hct 46.8 MCV 105.2 H MCH 34.8 H MCHC 33.1 RDW 12.5 Plt Count 436 MPV 10.3 Neut # (Auto) 11.7 H Lymph # (Auto) 1.7 [place] # (Auto) 1.0 Eos # (Auto) 0.2 Baso # (Auto) 0.1 Absolute Nucleated RBC 0.00 Nucleated RBC % 0.0 Bld Gas Analysis Time Sample Site ABG pH ABG pCO2 ABG pO2 ABG HCO3 ABG Total CO2 ABG O2 Saturation ABG Base Excess Lance Test VBG pH VBG pCO2 VBG pO2 VBG HCO3 VBG Total CO2 VBG O2 Saturation VBG Base Excess O2 Delivery Device Vent Mode FiO2 Pressure Support Vent EPAP IPAP Sodium 136 Potassium 4.0 Chloride 93 L Carbon Dioxide 33 H Anion Gap 10.0 BUN < 5 L Creatinine 0.3 L Estimated GFR (MDRD) 219 Glucose 140 H Calcium 9.0 Phosphorus 3.7 Magnesium 1.8 Total Bilirubin 0.7 AST 42 ALT 32 Alkaline Phosphatase 107 Troponin I High Sens 9.6 Total Protein 6.8 Albumin 3.3 Globulin 3.5 Albumin/Globulin Ratio 0.9 L Nasal Adenovirus (PCR) Nasal B. parapertussis DNA (PCR) Nasal Coronavir 229E PCR Nasal Coronavir HKU1 PCR Nasal Coronavir NL63 PCR Nasal Coronavir OC43 PCR Nasal Enterovir/Rhinovir PCR Nasal Influenza B PCR Nasal Influenza A PCR Nasal Parainfluen 1 PCR Nasal Parainfluen 2 PCR Nasal Parainfluen 3 PCR Nasal Parainfluen 4 PCR Nasal RSV (PCR) Nasal B.pertussis DNA PCR Nasal C.pneumoniae (PCR) [place]aleb Human Metapneumo PCR Nasal M.pneumoniae (PCR) Nasal SARS-CoV-2 (PCR) 06/18/20 06/18/20 06/18/20 17:25 17:35 18:29 WBC RBC Hgb Hct MCV MCH MCHC RDW Plt Count MPV Neut # (Auto) Lymph # (Auto) [place] # (Auto) Eos # (Auto) Baso # (Auto) Absolute Nucleated RBC Nucleated RBC % Bld Gas Analysis Time 1833 Sample Site RIGHT RADIAL ABG pH 7.25 L ABG pCO2 80 H* ABG pO2 87 ABG HCO3 34.1 H ABG Total CO2 36.6 H ABG O2 Saturation 96 ABG Base Excess 3.8 H Lance Test POSITIVE VBG pH 7.212 L VBG pCO2 86.9 H VBG pO2 30.7 VBG HCO3 34.1 H VBG Total CO2 36.8 H VBG O2 Saturation 98.1 H VBG Base Excess 2.7 H O2 Delivery Device BiPAP Vent Mode SYNCHRONOUS/TIMES FiO2 30.00 Pressure Support Vent 7 EPAP 5 IPAP 12 Sodium Potassium Chloride Carbon Dioxide Anion Gap BUN Creatinine Estimated GFR (MDRD) Glucose Calcium Phosphorus Magnesium Total Bilirubin AST ALT Alkaline Phosphatase Troponin I High Sens Total Protein Albumin Globulin Albumin/Globulin Ratio Nasal Adenovirus (PCR) NOT DETECTED Nasal B. parapertussis DNA (PCR) NOT DETECTED Nasal Coronavir 229E PCR NOT DETECTED Nasal Coronavir HKU1 PCR NOT DETECTED Nasal Coronavir NL63 PCR NOT DETECTED Nasal Coronavir OC43 PCR NOT DETECTED Nasal Enterovir/Rhinovir PCR NOT DETECTED Nasal Influenza B PCR NOT DETECTED Nasal Influenza A PCR NOT DETECTED Nasal Parainfluen 1 PCR NOT DETECTED Nasal Parainfluen 2 PCR NOT DETECTED Nasal Parainfluen 3 PCR NOT DETECTED Nasal Parainfluen 4 PCR NOT DETECTED Nasal RSV (PCR) NOT DETECTED Nasal B.pertussis DNA PCR NOT DETECTED Nasal C.pneumoniae (PCR) NOT DETECTED [place] Human Metapneumo PCR NOT DETECTED Nasal M.pneumoniae (PCR) NOT DETECTED Nasal SARS-CoV-2 (PCR) NOT DETECTED PD MEDICAL DECISION MAKING - ED course ED course: 70-year-old woman with COPD exacerbation. Appears quite ill with alarming saturations on arrival. Her saturations improved significantly with the administration of nonrebreather mask, after the results of her venous blood gas BiPAP was started. She needed a little morphine to tolerate this but did well after that with symptomatic improvement. Subsequent ABG showed 7.249, 79.8, 86.7. She received 3 [id number] nebs here and she had received steroids on the way here. She will need to be admitted to intensive care for further evaluation and treatment and Dr. Corona accepts around 6:30 PM. - Critical Care Time(min): 45 Time Includes: Direct patient care, Review records, Reassess patient, Document care, Coordinate care, Medical consult, Family consult for tx dec Data interpretation: Labs, Pulse ox Procedures included in critical care time: Peripheral IV Procedures excluded from critical care time: EKG Departure - Departure Disposition: 66 [facility] DC/Xfer Clinical Impression: Full code status, COPD exacerbation, Tobacco use Respiratory failure Qualifiers: Chronicity: acute on chronic Respiratory failure complication: hypoxia and hypercapnia Qualified Code(s): J96.21 - Acute and chronic respiratory failure with hypoxia; J96.22 - Acute and chronic respiratory failure with hypercapnia Condition: Critical
[2020-06-18 17:32] LABS: BASOPHILS # (AUTO) 0.1 10^3/uL (0.0-0.1); BASOPHILS % (AUTO) 0.9 %; EOSINOPHILS # (AUTO) 0.2 10^3/uL (0.0-0.7); EOSINOPHILS % (AUTO) 1.1 %; HCT - HEMATOCRIT 46.8 % (37.0-47.0); HGB - HEMOGLOBIN 15.5 g/dL (12.0-16.0); LYMPHOCYTES # (AUTO) 1.7 10^3/uL (1.5-3.5); LYMPHOCYTES % (AUTO) 11.7 %; MEAN CORPUSCULAR HEMOGLOBIN 34.8 pg (27.0-31.0); MEAN CORPUSCULAR HGB CONC 33.1 g/dL (32.0-36.0); MEAN CORPUSCULAR VOLUME 105.2 fL (81.0-99.0); MEAN PLATELET VOLUME 10.3 fL (7.9-10.8); MONOCYTES % (AUTO) 6.5 %; NEUTROPHILS # (AUTO) 11.7 10^3/uL (1.5-6.6); NEUTROPHILS % (AUTO) 79.1 %; PLT - PLATELET COUNT 436 10^3/uL (130-450); RED BLOOD COUNT 4.45 10^6/uL (4.20-5.40); RED CELL DISTRIBUTION WIDTH 12.5 % (12.0-15.0); WHITE BLOOD COUNT 14.7 x10^3/uL (4.8-10.8)
[2020-06-18 17:33] LABS: VBG PCO2 86.9 mmHg (41-51); VBG PH 7.212 (7.31-7.41)
[2020-06-18] MEDS ORDERED: MORPHINE 2 MG/ML CARPUJECT IVP STA (17:33)
[2020-06-18 17:34] LABS: VBG BASE EXCESS 2.7 mmol/L (-2 - +2); VBG HCO3 34.1 mmol/L (23-28); VBG OXYGEN SATURATION 98.1 % (60-80); VBG PO2 30.7 mmHg (25-47); VBG TOTAL CO2 36.8 mmol/L (24-29)
[2020-06-18 17:54] LABS: ALBUMIN 3.3 g/dL (3.2-5.5); ALBUMIN/GLOBULIN RATIO 0.9 (1.0-2.2); ALKALINE PHOSPHATASE 107 IU/L (42-121); ALT ALANINE AMINOTRANSFERASE 32 IU/L (10-60); AST ASPARTATE AMINOTRANSFERASE 42 IU/L (10-42); BILIRUBIN,TOTAL 0.7 mg/dL (0.2-1.0); BUN - BLOOD UREA NITROGEN < 5 mg/dL (6-20); CARBON DIOXIDE - CO2 33 mmol/L (21-32); CHLORIDE 93 mmol/L (101-111); CREATININE 0.3 mg/dL (0.4-1.0); GFR - MDRD 219 (>89); GLUCOSE 140 mg/dL (70-100); MAGNESIUM 1.8 mg/dL (1.7-2.8); PHOSPHORUS 3.7 mg/dL (2.5-4.6); SODIUM 136 mmol/L (135-145); TOTAL PROTEIN 6.8 g/dL (6.7-8.2)
--- NOTE | 2020-06-18 18:22 | XRAY Report ---
PROCEDURE: Chest 1 View X-Ray INDICATIONS: dyspnea TECHNIQUE: One view of the chest was acquired. COMPARISON: Lung bases on CT abdomen and pelvis 06/04/2020. CXR 05/29/2020, 05/13/2020. FINDINGS: Surgical changes and devices: Surgical clips overlying the left abdomen. Lungs and pleura: No pleural effusions or pneumothorax. Lungs are clear. Mediastinum: Mediastinal contours appear normal. Heart size is normal. Bones and chest wall: No suspicious bony lesions. Overlying soft tissues appear unremarkable. IMPRESSION: No acute cardiopulmonary abnormality. Reviewed by: Devan Arias MD on 06/18/2020 6:20 PM PDT Approved by: Devan Arias MD on 06/18/2020 6:20 PM PDT Station ID: [id number]
[2020-06-18] MEDS ORDERED: cefTRIAXone 1 GM in SODIUM CHLORIDE 0.9% MINIBAG 100 ML IV STA (18:32)
[2020-06-18] MEDS ORDERED: ONDANSETRON ODT 4 MG TABLET TL PRN (18:33)
[2020-06-18] MEDS ORDERED: ONDANSETRON 4 MG/2 ML VIAL IVP PRN (18:33)
[2020-06-18 18:34] LABS: ABG HCO3 34.1 mmol/L (22.0-26.0); ABG PH 7.25 (7.35-7.45); ABG PO2 87 mmHg (80-100); ABG TCO2 36.6 MMOL/L (21.0-29.0)
[2020-06-18 18:35] LABS: B. PARAPERTUSSIS- RESP PCR PAN NOT DETECTED; B. PERTUSSIS- RESP PCR PANEL NOT DETECTED; C. PNEUMONIAE- RESP PCR PANEL NOT DETECTED; CORONAVIRUS 229E-RESP PCR NOT DETECTED; CORONAVIRUS HKU1-RESP PCR NOT DETECTED; CORONAVIRUS NL63-RESP PCR NOT DETECTED; CORONAVIRUS OC43-RESP PCR NOT DETECTED; HUMAN METAPNEUMOVIRUS NOT DETECTED; INFLUENZA A- RESP PCR PANEL NOT DETECTED; INFLUENZA B - RESP PCR PANEL NOT DETECTED; M. PNEUMONIAE- RESP PCR PANEL NOT DETECTED; PARAINFLUENZA VIRUS 1 NOT DETECTED; PARAINFLUENZA VIRUS 2 NOT DETECTED; PARAINFLUENZA VIRUS 3 NOT DETECTED; PARAINFLUENZA VIRUS 4 NOT DETECTED; RHINOVIRUS/ENTEROVIRUS NOT DETECTED; RSV- RESP PCR PANEL NOT DETECTED; SARS-CoV-2 -RESP PCR PANEL NOT DETECTED
[2020-06-18 18:35] LABS: ABG BASE EXCESS 3.8 mmol/L (-2.0-3.0); ABG MODE OF VENTILATION SYNCHRONOUS/TIMES; ABG OXYGEN SATURATION 96 % (94-98); ALLEN TEST POSITIVE
[2020-06-18 18:37] LABS: ABG PCO2 80 mmHg (34-45)
--- OUTSIDE RECORDS SUMMARY | 2020-06-18 19:06 | EXTERNAL MEDICAL SUMMARY RPT | Continuity of Care Document ---
:1950 Demographics Phone Unavailable Preferred Language Unknown Marital Status Unknown Pentecostalism Affiliation Unknown Race Unknown Ethnic Group Unknown Author Organization [place] Address [address] [phone] Phone Problems date description facility [id number] Other specified abnormalities of plasma [employer] proteins
[2020-06-18] MEDS: INSULIN ASPART 300 UNIT/3 ML PEN SUBQ SCH (20:42)
--- NOTE | 2020-06-18 20:53 | HISTORY & PHYSICAL EXAMINATION ---
Chief Complaint - Chief Complaint Chief Complaint: acute on chronic sob/wheezing. History of Present Illness - Admitted From Admitted From:: Home - History Obtained From Records Reviewed: [place] History obtained from: Dr. Corona Exam Limitations: bipap and hypoxia and sob with speaking - History of Present Illness HPI Comment/Other: The patient has chronic lumbar radiculopathy with a foot drop as well as chronic ongoing alcohol and tobacco abuse resulting in alcoholic liver disease, anasarca. She has chronic right foot edema and chronic redness from venous stasis. Her venous stasis has been severe enough that she has had blistering and rupturing of the blistering. She was admitted once in 2019 because of this. She has a history of COPD and is on 2 L nasal cannula at home for this for about 6 months. When she was first on it, it was prn. Now she's using it 30/08 but can't say why. Medications are albuterol HFA inhaler/Advair/Spiriva/singulair. She continues to be an every day smoker and drinker. 2 years ago she reached a crisis with her health due to her drinking and went into liver failure. She was hospitalized several times in 2019, stabilized. She then went into rehab. Was able to stop smoking and drinking for about 2 months. She then started sliding because "I felt so good" that she went back to drinking and smoking. She is up to 4 small bottles of wine a day. Each bottle is called a "glass". She is up to 1 pack/day of smoking. A few months ago she could mow her lawn. She cannot walk across the room right now. She describes her self as still independent with cleaning her own house, paying her own bills, cooking, cleaning but in the last few weeks she slowed down considerably. Again she cannot say why but she is more tired, more short of breath, coughing more. She had 4 visits to the ER in a month and on visit #5, she had the flu shot on June 03. It was flu shot #2. Within a couple of hours she had abrupt worsening of nausea and vomiting, generalized abd pain, diarrhea and sob that she had for weeks. She had also been out of her Xarelto for 3 days. Xarelto is for history of DVT and PE in the past. The PE was associated with her liver failure in 2019 but was also present years ago as well. The N/V then resulted in decompensation of her breathing and she was severely short of breath. She came to the emergency room and because of elevated troponins in the 70s that increased to 111, she was transferred to [facility]. CTA was neg for PE. "she had lateral T wave inversion on 05/14 that was not present on 05/13, and these appear to deepen on the EKG performed 05/29. Her troponin was normal on 05/29 but tonight it is 76.7 and 2-hour repeat is 111. The Q waves [facility] have been present on previous EKGs going back at least several months. She has h/o COPD but says she only uses oxygen PRN and typically only 1 liter/min at night. During ED stay she desaturates when asleep (as low as mid-70s), but improves when woken (and instructed to breathe through nose, with 4 liters/min NC oxygen applied) and rapidly improves to low 90s. Because of her significant T inversions with ST depression and elevated troponins, I contacted [facility] and spoke with hospitalist (Dr. Francis) who accepts transfer to [facility]; she recommends heparin per PE protocol, and this is initiated in [facility] ED prior to transfer." She was told that she had "costochondritis" induced by the sudden nausea and vomiting but was not having a heart attack. Echocardiogram and stress test were negative. She continues to have vague chest aching in the anterior chest wall especially with movement, coughing, deep breath. She presented to the emergency room with acute on chronic shortness of breath. She has chronic daily phlegm production of white phlegm that has not changed. She denies fever, chills, hemoptysis, and no one else is sick around her. Appetite is the same as always. No change in her bowel habits because of this for the last few days. The diarrhea has resolved. She feels that her shortness of breath and wheezing became much more severe today for unknown reasons. With today's visit, temperature was 36.6, heart rate 116, respiration rate 26. Blood pressure 203/102 with an O2 sat of 58% on room air. She was tachypneic with very diminished breath sounds throughout all lung prieto and way too quiet lungs without wheezing. She had no calf tenderness or cord palpable. BMP was normal except for glucose 140. Troponin was normal at 9.6. Covid negative. White cell count 14.7, hemoglobin 15.5. Platelet 436. Blood gas showed a pH of 7.2, PCO2 86.9, PO2 30.7. Bicarb 34.1. A right radial arterial plaque showed a pH of 7.25, PCO2 80, PO2 87, bicarb 34.1, base excess +3.8. Chest x-ray did not have any acute cardiopulmonary changes. There were no pleural effusions. Treatment consisted of albuterol, Rocephin, DuoNeb, methylprednisolone, morphine, and after no response or improvement she was put on BiPAP. We are now asked to admit her for acute on chronic respiratory failure with hypoxemia and hypercapnia due to COPD exacerbation. The patient is followed by her primary care provider, Ami Ghotra at the [facility]. She does not have any specialty follow-up. I have reviewed her medical records from [facility] with her admission June 04 and discharge June 05. Medications in the ER were reviewed but not able to be recorded by RN. She is on Tylenol, albuterol HFA, Advair, Lasix 40, lactulose, Singulair, nicotine patch, Zofran, prednisone 40 mg daily, propranolol 10 daily, spironolactone 50 daily, Spiriva daily, Xarelto 10 daily. History - Past Medical History Cardiovascular: reports: Hypertension, High cholesterol, Deep vein thrombosis, Pulmonary embolism (In the past associated with a DVT of the right leg. She then presented as syncope in September 2018 in the context of ongoing alcohol abuse and liver failure and had multiple pulmonary emboli both lobes and was reanticoagulated for life.), Murmur (Echocardiogram June 05 with normal LV size, EF 70-75%. No valve heart disease. RV normal size and function. RVSP 36 mmHg.), Other (Atypical chest pain. Nuclear medicine stress test June 04 showed baseline EKG having diffuse ST-T wave abnormalities. No diagnostic ST changes with Lexiscan. Post-rest supine images without perfusion deficit. LV ejection fraction 99%. No evidence of ischemia.) Respiratory: reports: COPD, Emphysema (Bullous emphysema on CT of the chest in t he past And June 04, 2020) Neuro: reports: None, Other Endocrine/Autoimmune: reports: None GI: reports: Cirrhosis (alcoholic w shrunken spleen, SBP episode, anasarca. No varices.) APPLICATIONS SUPPORT SPECIALIST: reports: Breast cancer (Status post lumpectomy and radiation. Followed by [facility].), Other () : reports: Incontinence HEENT: reports: None Psych: reports: Depression, Anxiety Musculoskeletal: reports: Osteoarthritis, Osteoporosis, Chronic back pain (Spinal stenosis resulting in radiculopahty with prev hx of R foot drop , now L foot.) Derm: reports: None MRSA Hx?: No Other Past Medical History: IBS - Past Surgical History General: reports: Colonoscopy, EGD - Family & Social History Family History Comment/Other: Father had an unspecified cancer. He from metastasis to the brain in his mid 60s. Mother had respiratory problems from . She in 2004 from complications of respiratory disease. 1 sister is healthy and lives in [place]. 3 kids are healthy and 1 lives w her and 2 live nearby. But they can't help. Only the daughter that lives w her helps. Living arrangement: At home Living Situation: With spouse/s.o., With family Social History Notes: Started smoking age 11, 1 pack/day. Still ongoing. Started drinking in her 20s. Still ongoing. 4 bottles/day of 187 ml. Does have a history of withdrawals, shakiness, tremulousness but does not recall withdrawal seizures.No history of recreational substance abuse. - Substance History Abuse: Recurrent use of substance despite neg consequences: Alcohol, Other (Tobacco) - POLST Patient has POLST: No POLST Status: DNR (Please see advance care planning discussion) Meds/Allgy - Home Medications Home Medications: Ambulatory Orders Medication Instructions Recorded Confirmed Propranolol [Inderal] 10 mg PO BID 09/21/18 05/14/20 Albuterol Sulfate [Proair Hfa 2 puffs INH 05/13/20 Inhaler] - Allergies Allergies/Adverse Reactions: Allergies Allergy/AdvReac Type Severity Reaction Status Date / Time Latex, Natural Rubber Allergy Rash Verified 06/18/20 17:36 lisinopril Allergy Respiratory Verified 06/18/20 17:36 Review of Systems - Constitutional Constitutional: reports: Fatigue, Malaise, Weakness, Poor appetite - Eyes Eyes: reports: Vision loss (due to age). denies: Pain, Irritation, Amaurosis, Blurred vision - Ears, Nose & Throat Ears, Nose & Throat: reports: Hearing loss. denies: Ear pain, Hearing aids, Tinnitus, Vertigo - Cardiovascular Cariovascular: reports: Chest pain, Edema, Syncope, Exertional dyspnea, Decr. exercise tolerance. denies: Irregular heart rate, Palpitations - Respiratory Respiratory: reports: Cough, Sputum production, Wheezing, SOB at rest, SOB with exertion. denies: Orthopnea - Gastrointestinal Gastrointestinal: reports: Abdominal pain, Diarrhea, Nausea, Vomiting. denies: Black stools, Bloody stools - Genitourinary Genitourinary: reports: Incontinence. denies: Dysuria, Frequency, Urgency - Musculoskeletal Musculoskeletal: reports: Back pain, Muscle aches, Muscle weakness, Joint pain - Integumentary Integumentary: denies: Rash, Pruritis, Lesions, Dryness - Neurological Neurological: reports: General weakness, Memory problems. denies: Focal weakness, Headache, Dizziness, Pre-existing deficit, Abnormal gait - Psychiatric Psychiatric: reports: Depression, Anxiety. denies: Suicidal, Delusions, Hallucinations - Endocrine Endocrine: reports: Intolerance to cold. denies: Polyuria, Polydypsia, Polyphagia - Hematologic/Lymphatic Hematologic/Lymphatic: reports: Anemia, Bruising, Blood clots, Bleeding tendencies. denies: Petechiae, Lymphadenopathy Prior Level of Functionality: And wanes on independence depending on her disease severity. When she is very ill she can dress herself, feed herself but that is about it. 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 Right now she is not doing very well. While she uses oxygen at home she does not use a cane or walker. Daughter moved in about 5 years ago to help. Exam - Vital Signs Reviewed Vital Signs: Yes Vital Signs: Vital Signs x48h Temp Pulse Pulse Resp BP BP Pulse Ox 06/18/20 20:15 92 06/18/20 19:45 36.8 C 100 13 160/77 H 96 06/18/20 19:22 89 22 125/69 95 06/18/20 19:00 79 112/68 06/18/20 18:30 91 25 H 129/81 H 95 05/12/21 18:06 107 H 22 169/99 H 95 06/18/20 17:58 120 H 06/18/20 17:55 114 H 36 H 191/111 H 98 06/18/20 17:30 124 H 20 100 06/18/20 17:20 117 H 36 H 06/18/20 17:08 36.6 C 116 H 26 H 203/102 H 58 L - Physical Exam General Appearance: positive: Alert, Moderate distress, Other (Daughter at the bedside. Patient is currently off BiPAP to eat and as interview continues she has increasing tachypnea, respiratory distress, pursed lip breathing.) Eyes Bilateral: positive: PERRL, EOMI ENT: positive: Dry mucous membranes (From tachypnea) Neck: positive: No JVD. negative: Stiff neck, Carotid bruit Respiratory: positive: Wheezes, Rhonchi, Other (Tachypnea, rib retraction and use of abdominal wall musculature). negative: Chest non-tender (She is tender with the deep, deep breath and as well as palpation of her sternum and rib cage insertion sites) Cardiovascular: positive: Regular rate & rhythm, Tachycardia, Systolic murmur. negative: Gallop/S4, Friction rub Peripheral Pulses: positive: 0 Abdomen: positive: Non-tender, Nml bowel sounds, No distention, Other (I do not feel a fluid wave). negative: Guarding, Rebound, Hepatomegaly Skin: positive: Warm, Dry, Pallor Extremities: positive: No pedal edema, Other (Severe onychomycosis and long toenails of all nails). negative: Nml appearance (Wasting of her limbs. Left leg appears more shrunken than right leg.), Eleanor's sign/cords Neurologic/Psychiatric: positive: Oriented x3, CN's nml (2-12). negative: Motor nml (Left foot drop now present. She states that her right foot drop resolved from 2019.) Conclusion/Plan - Problem List (1) COPD exacerbation Conclusion/Plan: With acute on chronic respiratory failure with hypercapnea and hypoxia. This lady has documented emphysematous bullous changes on previous CTs. While she has ongoing alcohol and tobacco abuse, there is no change in that activity with no cause for decompensation. There does not seem to be an ongoing infection. She has not had a inhalation of a toxic substance. She is not in congestive heart failure. She is Covid negative. Plan: Observation status IV steroids Fixed schedule DuoNeb As needed albuterol Inhaled budesonide Inhaled formoterol Empiric antibiotics with Rocephin Already has referral to cardiopulmonary rehab and she would like to follow through with that in the outpatient setting (2) Tobacco use Conclusion/Plan: She is well aware of need to stop. She has been unsuccessfully trying for several years now. Plan: Nicotine patch (3) Alcohol abuse with alcohol-induced disorder Conclusion/Plan: Which is cirrhosis of the liver. Plan: P.o. vitamins such as thiamine and B12 Watch for alcohol withdrawal She states that she will continue to try stopping. (4) Cirrhosis with alcoholism Conclusion/Plan: Continue propranolol and lactulose. Continue to encourage to stop drinking. (5) Do not resuscitate Conclusion/Plan: see advanced care planning (6) Onychomycosis Conclusion/Plan: Antifungal would be contraindicated because of her liver disease. She really needs to see a artificial breast fabricator, start getting regular nail care. (7) History of pulmonary embolism Conclusion/Plan: Twice now. Most recent was in September 2018. She is supposed to be on Xarelto 10 mg a day. (8) Costochondritis Conclusion/Plan: Continue to reassure that this is noncardiac. Tylenol as needed. - Lab Results Lab results reviewed: Yes Fish Bones: 06/18/20 17:25 06/18/20 17:25 Other Lab Results: Selected Entries 08/10/18 08/24/19 06/03/20 05:28 08:00 20:56 Weight (kg) 59 kg 46 kg 47.627 kg 06/18/20 19:46 Weight (kg) 46.5 kg - Diagnostic Imaging Results Diagnostic Imaging Results: positive: Final report reviewed Diagnostic Imaging Results Comments: No acute cardiopulmonary changes. No pleural effusion, no pneumonia. - EKG Results EKG Interpreted Independently: No Core Measures - Anticipated LOS I expect patient to be DC'd or transferred within 96 hours.: Yes - DVT/VTE - Prophylaxis VTE/DVT Device ordered at admit?: Yes
[2020-06-18] MEDS: IPRATROPIUM/ALBUTEROL 3 ML NEB INH SCH (21:30)
[2020-06-18] MEDS: methylPREDNISolone SUCCINATE 40 MG/ML VIAL IVP SCH (21:41)
[2020-06-18] MEDS: MORPHINE 2 MG/ML CARPUJECT IVP PRN (21:42)
[2020-06-18] MEDS: SODIUM CHLORIDE FLUSH 0.9% 10 ML SYRINGE IVP SCH (21:42)
--- NOTE | 2020-06-18 23:19 | ADVANCE CARE PLANNING NOTE ---
Advance Care Planning - Planning Encounter Date: 06/18/20 Time: 20:00 Purpose: establish care goals and code status Parties in Attendance: Hospitalist, patient, daughter who is DPOA Decisional Capacity of the Patient: alert and oriented and daughter states mom makes her own decisions. - Diagnosis for Encounter (1) COPD exacerbation Summary: She has been smoking since the age of 11 and smokes 1 pack/day. She is trying to stop several times it has been unsuccessful. She was placed on oxygen approximately 6 months ago. Initially it was as needed and over the last couple of months it has been daily. CT scan confirms diffuse bullous emphysema. However echocardiogram done in May of this year does not show pulmonary hypertension. Nor does she have cor pulmonale. - Encounter Subjective/Patient's Story: Was born and raised in [place] and from there her parents took her to [place] when she was about 8 years old. She lived near [facility]. She used to work for [employer] and worked for them for several decades until they had a workforce cut back and she lost her job. She has been 3 times. With her third she has had 3 children. She met him in [place] when he was in the [employer], active duty. They came to [facility] for a duty station, and he ended up staying here. [place] since and the kids grew up here. She and her live in [place] in their own home. All 3 children live nearby. But she can only rely on her daughter to help. Daughter moved in about 5 years ago when she noticed mom and dad were "getting a little older". Her other 2 children are very busy in cannot be relied on to help take care of them. When her health is in good stable status she still does household cleaning, laundry, cooking, grocery shopping. When her emphysema or her liver disease is bad, she relies on her daughter to help. Daughter states that she works full-time. 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 And up until now she really feels that she is just there to "help her mom and dad" when they need help but they have been very independent and not needed very much help at all. The patient is smoked all of her life since the age of 11 and smokes 1 pack/day. In the past her alcoholism was that of several bottles a day of wine. She is currently drinking about 4 bottles/day of 187 mL wine. They have had advance care planning conversations in the past. Her liver failure admission in 2019 really brought things to ahead. But overall the patient's attitude is been that of a positive "looking forward" to the future. The daughter has told mom that "I want 20 more years out of you". After her hospitalization for liver failure, the patient stop smoking and drinking. However, she started sliding a few months after rehab and has gone back to drinking and smoking. She truly would like to stop but just cannot. She has been referred to cardiopulmonary rehab over the last couple of years and just has not made contact. However she was just hospitalized at [facility] June 03, and that was rediscussed and she wants to follow through with that. Goals referred to live another 20 years. She wants to be independent and stay in her own home. I asked her to have Plan B in place. That may take into account that the natural progression of her emphysema and liver disease which may not allow her to live for 20 years. And that her disease deterioration might result in a bedbound status requiring 24/7 care. I asked her if she would consider living in a jail and she does not want to but if her daughter cannot take care of her, she reluctantly agrees to go there. Both she and her live on a fixed income from [employer] and his shelter from the [employer]. Their daughter has moved in with him to help him, but if they become bedbound or require 24/7 care, she may not be able to do it because her of her full-time job. Mom states that she is rethought her resuscitative status. I discussed in the presence of her daughter if she still wanted to have chest compressions, CPR, and to be resuscitated in the event of her heart stopping or her lungs stopping and she stated no. However, she still wants everything else done. If she needs to be intubated for respiratory failure, have surgery for hip fracture or GI bleed, need antibiotics for pneumonia, require bypass surgery for her heart, etc she wants all of that done. After this conversation, I reviewed her medical records from [facility] where she wanted to be a full code. I went back and reiterated her request to be DNR. She states that she does want to be DNR. Daughter was not present in the room with that conversation. Objective/Medical Story: The patient has chronic lumbar radiculopathy with a foot drop as well as chronic ongoing alcohol and tobacco abuse resulting in alcoholic liver disease, anasarca. She has chronic right foot edema and chronic redness from venous stasis. Her venous stasis has been severe enough that she has had blistering and rupturing of the blistering. She was admitted once in 2019 because of this. She has a history of COPD and is on 2 L nasal cannula at home for this for about 6 months. When she was first on it, it was prn. Now she's using it 30/08 but can't say why. Medications are albuterol HFA inhaler/Advair/Spiriva/singulair. She continues to be an every day smoker and drinker. 2 years ago she reached a crisis with her health due to her drinking and went into liver failure. She was hospitalized several times in 2019, stabilized. She then went into rehab. Was able to stop smoking and drinking for about 2 months. She then started sliding because "I felt so good" that she went back to drinking and smoking. She is up to 4 small bottles of wine a day. Each bottle is called a "glass". She is up to 1 pack/day of smoking. A few months ago she could mow her lawn. She cannot walk across the room right now. She describes her self as still independent with cleaning her own house, paying her own bills, cooking, cleaning but in the last few weeks she slowed down considerably. Again she cannot say why but she is more tired, more short of breath, coughing more. She had 4 visits to the ER in a month and on visit #5, she had the flu shot on June 03. It was flu shot #2. Within a couple of hours she had abrupt worsening of nausea and vomiting, generalized abd pain, diarrhea and sob that she had for weeks. She had also been out of her Xarelto for 3 days. Xarelto is for history of DVT and PE in the past. The PE was associated with her liver failure in 2019 but was also present years ago as well. The N/V then resulted in decompensation of her breathing and she was severely short of breath. She came to the emergency room and because of elevated troponins in the 70s that increased to 111, she was transferred to [facility]. CTA was neg for PE. "she had lateral T wave inversion on 05/14 that was not present on 05/13, and these appear to deepen on the EKG performed 05/29. Her troponin was normal on 05/29 but tonight it is 76.7 and 2-hour repeat is 111. The Q waves on [facility]'s EKG have been present on previous EKGs going back at least several months. She has h/o COPD but says she only uses oxygen PRN and typically only 1 liter/min at night. During ED stay she desaturates when asleep (as low as mid-70s), but improves when woken (and instructed to breathe through nose, with 4 liters/min NC oxygen applied) and rapidly improves to low 90s. Because of her significant T inversions with ST depression and elevated troponins, I contacted [facility] and spoke with hospitalist (Dr. Francis) who accepts transfer to [facility]; she recommends heparin per PE protocol, and this is initiated in [facility] ED prior to transfer." She was told that she had "costochondritis" induced by the sudden nausea and vomiting but was not having a heart attack. Echocardiogram and stress test were negative. She continues to have vague chest aching in the anterior chest wall especially with movement, coughing, deep breath. She presented to the emergency room with acute on chronic shortness of breath. She has chronic daily phlegm production of white phlegm that has not changed. She denies fever, chills, hemoptysis, and no one else is sick around her. Appetite is the same as always. No change in her bowel habits because of this for the last few days. The diarrhea has resolved. She feels that her shortness of breath and wheezing became much more severe today for unknown reasons. With today's visit, temperature was 36.6, heart rate 116, respiration rate 26. Blood pressure 203/102 with an O2 sat of 58% on room air. She was tachypneic with very diminished breath sounds throughout all lung prieto and way too quiet lungs without wheezing. She had no calf tenderness or cord palpable. BMP was normal except for glucose 140. Troponin was normal at 9.6. Covid negative. White cell count 14.7, hemoglobin 15.5. Platelet 436. Blood gas showed a pH of 7.2, PCO2 86.9, PO2 30.7. Bicarb 34.1. A right radial arterial plaque showed a pH of 7.25, PCO2 80, PO2 87, bicarb 34.1, base excess +3.8. Chest x-ray did not have any acute cardiopulmonary changes. There were no pleural effusions. Treatment consisted of albuterol, Rocephin, DuoNeb, methylprednisolone, morphine, and after no response or improvement she was put on BiPAP. We are now asked to admit her for acute on chronic respiratory failure with hypoxemia and hypercapnia due to COPD exacerbation. The patient is followed by her primary care provider, Ami Ghotra at the [facility]. She does not have any specialty follow-up. I have reviewed her medical records from [facility] with her admission June 04 and discharge June 05. Medications in the ER were reviewed but not able to be recorded by RN. She is on Tylenol, albuterol HFA, Advair, Lasix 40, lactulose, Singulair, nicotine patch, Zofran, prednisone 40 mg daily, propranolol 10 daily, spironolactone 50 daily, Spiriva daily, Xarelto 10 daily. History - Past Medical History Cardiovascular: reports: Hypertension, High cholesterol, Deep vein thrombosis, Pulmonary embolism (In the past associated with a DVT of the right leg. She then presented as syncope in September 2018 in the context of ongoing alcohol abuse and liver failure and had multiple pulmonary emboli both lobes and was reanticoagulated for life.), Murmur (Echocardiogram June 05 with normal LV size, EF 70-75%. No valve heart disease. RV normal size and function. RVSP 36 mmHg.), Other (Atypical chest pain. Nuclear medicine stress test June 04 showed baseline EKG having diffuse ST-T wave abnormalities. No diagnostic ST changes with Lexiscan. Post-rest supine images without perfusion deficit. LV ejection fraction 99%. No evidence of ischemia.) Respiratory: reports: COPD, Emphysema (Bullous emphysema on CT of the chest in the past And June 04, 2020) Neuro: reports: None, Other Endocrine/Autoimmune: reports: None GI: reports: Cirrhosis (alcoholic w shrunken spleen, SBP episode, anasarca. No varices.) SURGICAL AIDE: reports: Breast cancer (Status post lumpectomy and radiation. Followed by [facility]. Margarita), Other () : reports: Incontinence HEENT: reports: None Psych: reports: Depression, Anxiety Musculoskeletal: reports: Osteoarthritis, Osteoporosis, Chronic back pain (Spinal stenosis resulting in radiculopahty with prev hx of R foot drop , now L foot.) Derm: reports: None MRSA Hx?: No Other Past Medical History: IBS - Past Surgical History General: reports: Colonoscopy, EGD Goals of Care: 1. To return to the hospital if need be even if she is deteriorating from her disease status. She states that she may change her mind depending on how disabled she is down the road. She has hope and a positive attitude that she will recover from some of her medical disability to live a normal life span. 2. To stay at home for as long as possible with independent living with her 3. To start cardiopulmonary rehab as soon as possible to regain her strength and endurance to allow her to be as independent as possible 4. "To live another 20 years" at the request of her daughter Plan: 1. Treat her current acute episode of care problems to stabilize and send her home 2. Make sure she follows up with cardiopulmonary rehab 3. Codified DO NOT RESUSCITATE status in this note 4. Start "plan B" organization in case she does not improve, continues to deteriorate, and may need increasing care at home. Code Status: Do Not Attempt Resuscitation Time spent on advance care plannin minutes
[2020-06-18] MEDS: CHLORHEXIDINE GLUCONATE 15 ML UDC PO SCH (23:39)
[2020-06-18] MEDS: NICOTINE 14 MG PATCH TOP SCH (23:39)
[2020-06-19] MEDS: IPRATROPIUM/ALBUTEROL 3 ML NEB INH SCH ×5 (01:35→18:06)
[2020-06-19] MEDS: MORPHINE 2 MG/ML CARPUJECT IVP PRN ×2 (01:56→20:02)
[2020-06-19] MEDS: SODIUM CHLORIDE FLUSH 0.9% 10 ML SYRINGE IVP PRN ×5 (01:56→20:10)
[2020-06-19 04:47] LABS: BASOPHILS % (AUTO) 0.3 %; HCT - HEMATOCRIT 41.5 % (37.0-47.0); HGB - HEMOGLOBIN 13.6 g/dL (12.0-16.0); LYMPHOCYTES # (AUTO) 0.4 10^3/uL (1.5-3.5); LYMPHOCYTES % (AUTO) 3.8 %; MEAN CORPUSCULAR HEMOGLOBIN 34.6 pg (27.0-31.0); MEAN CORPUSCULAR HGB CONC 32.8 g/dL (32.0-36.0); MEAN CORPUSCULAR VOLUME 105.6 fL (81.0-99.0); MEAN PLATELET VOLUME 10.7 fL (7.9-10.8); MONOCYTES # (AUTO) 0.1 10^3/uL (0.0-1.0); MONOCYTES % (AUTO) 0.8 %; NEUTROPHILS % (AUTO) 94.4 %; PLT - PLATELET COUNT 343 10^3/uL (130-450); RED BLOOD COUNT 3.93 10^6/uL (4.20-5.40); RED CELL DISTRIBUTION WIDTH 12.2 % (12.0-15.0); WHITE BLOOD COUNT 10.5 x10^3/uL (4.8-10.8)
[2020-06-19 04:58] LABS: CALCIUM 8.8 mg/dL (8.5-10.3); CREATININE 0.3 mg/dL (0.4-1.0); MAGNESIUM 1.9 mg/dL (1.7-2.8); PHOSPHORUS 3.3 mg/dL (2.5-4.6); POTASSIUM 4.3 mmol/L (3.5-5.0)
[2020-06-19] MEDS: methylPREDNISolone SUCCINATE 40 MG/ML VIAL IVP SCH ×2 (05:37→14:28)
[2020-06-19] MEDS: LACTULOSE 10 GM /15 ML UDC PO SCH ×3 (05:37→22:27)
[2020-06-19] MEDS: FORMOTEROL FUMARATE NEB 20 MCG/2 ML INH SCH ×2 (06:10→22:54)
[2020-06-19] MEDS: BUDESONIDE 0.5 MG/2 ML NEB INH SCH ×2 (06:10→18:06)
[2020-06-19 06:51] LABS: ABG PH 7.33 (7.35-7.45)
[2020-06-19 06:52] LABS: ABG HCO3 35.5 mmol/L (22.0-26.0); ABG OXYGEN SATURATION 96 % (94-98); ABG PO2 78 mmHg (80-100); ABG TCO2 37.6 MMOL/L (21.0-29.0); ALLEN TEST POSITIVE
[2020-06-19 06:53] LABS: ABG MODE OF VENTILATION SYNCHRONOUS/TIMES
[2020-06-19 06:55] LABS: ABG PCO2 68 mmHg (34-45)
--- NOTE | 2020-06-19 07:51 | PROVIDER PROGRESS NOTE ---
Subjective - Prog Note Date Prog Note Date: 06/19/20 - Subjective Pt reports feeling: Improved Subjective: She reports feeling better today. Feels less short of breath. She feels much improved compared to yesterday. Still has a chronic cough. She tolerated BiPAP overnight and she slept quite well because of it. Current Medications - Current Medications Current Medications: Active Medications Acetaminophen (Acetaminophen 325 Mg Tablet) 650 mg PO Q4HR PRN PRN Reason: Pain 1 to 4 Albuterol (Albuterol Neb 2.5 Mg/3 Ml) 2.5 mg INH Q4HR PRN PRN Reason: Wheezing Albuterol/Ipratropium (Ipratropium/Albuterol 3 Ml Neb) 3 ml INH Q4HR [facility] Last Admin: 06/19/20 06:10 Dose: 3 ml Documented by: Budesonide (Budesonide 0.5 Mg/2 Ml Neb) 0.5 mg INH RTBID [facility] Last Admin: 06/19/20 06:10 Dose: 0.5 mg Documented by: Chlorhexidine Gluconate (Chlorhexidine Gluconate 15 Ml Udc) 15 ml PO BID [facility] Last Admin: 06/18/20 23:39 Dose: 15 ml Documented by: Folic Acid (Folic Acid 1 Mg Tablet) 1 mg PO DAILY [facility] Formoterol Fumarate (Formoterol Fumarate Neb 20 Mcg/2 Ml) 20 mcg INH RTBID [facility] Last Admin: 06/19/20 06:10 Dose: 20 mcg Documented by: Ceftriaxone Sodium 1 gm/ (Sodium Chloride) 100 mls @ 200 mls/hr IV DAILY [facility] Insulin Aspart (Insulin Aspart 300 Unit/3 Ml Pen) 1 - 9 unit SUBQ 0800,1200,1700,2100 [facility]; Protocol Last Admin: 06/18/20 20:42 Dose: Not Given Documented by: Lactulose (Lactulose 10 Gm /15 Ml Udc) 10 gm PO TID [facility] Last Admin: 06/19/20 05:37 Dose: 10 gm Documented by: Methylprednisolone (Methylprednisolone Succinate 40 Mg/Ml Vial) 60 mg IVP TID [facility] Last Admin: 06/19/20 05:37 Dose: 60 mg Documented by: Morphine Sulfate (Morphine 2 Mg/Ml Carpuject) 2 mg IVP Q4HR PRN PRN Reason: Dyspnea Last Admin: 06/19/20 01:56 Dose: 2 mg Documented by: Nicotine (Nicotine 14 Mg Patch) 1 patch TOP DAILY [facility] Last Admin: 06/18/20 23:39 Dose: 1 patch Documented by: Ondansetron HCl (Ondansetron Odt 4 Mg Tablet) 4 mg TL Q6HR PRN PRN Reason: Nausea / Vomiting Ondansetron HCl (Ondansetron 4 Mg/2 Ml Vial) 4 mg IVP Q6HR PRN PRN Reason: Nausea / Vomiting Propranolol HCl (Propranolol 10 Mg Tablet) 10 mg PO DAILY [facility] Rivaroxaban (Rivaroxaban 10 Mg Tablet) 10 mg PO BID [facility] Sodium Chloride (Sodium Chloride Flush 0.9% 10 Ml Syringe) 10 ml IVP 0100,0900,1700 [facility] Last Admin: 06/18/20 21:42 Dose: 10 ml Documented by: Sodium Chloride (Sodium Chloride Flush 0.9% 10 Ml Syringe) 10 ml IVP PRN PRN PRN Reason: NEEDED PER PROVIDER ORDERS Last Admin: 06/19/20 05:37 Dose: 10 ml Documented by: Thiamine HCl (Thiamine 100 Mg Tablet) 100 mg PO DAILY [facility] Propranolol [Inderal] 10 mg PO BID 09/21/18 Albuterol Sulfate [Proair Hfa Inhaler] 2 puffs INH 05/13/20 Objective - Vital Signs/Intake & Output Reviewed Vital Signs: Yes Vital Signs: Vital Signs Temp Pulse Pulse Resp BP Pulse Ox 06/19/20 07:22 84 06/19/20 07:00 80 21 99/60 96 06/19/20 06:10 88 20 06/19/20 06:00 72 21 99/67 93 06/19/20 05:00 37.0 C 71 16 105/59 L 97 06/19/20 04:00 66 13 93/60 95 Intake & Output: Intake & Output 06/16/20 06/17/20 06/18/20 06/19/20 23:59 23:59 23:59 23:59 Intake Total 100 500 Output Total 0 0 Balance 100 500 - Objective General Appearance: positive: No acute distress, Alert Eyes Bilateral: positive: Normal inspection, Conjunctivae nml ENT: positive: ENT inspection nml, Other (Nasal cannula in place.) Neck: positive: Nml inspection Respiratory: positive: No respiratory distress, Other (Diminished bilaterally.). negative: Wheezes, Rales Cardiovascular: positive: Regular rate & rhythm, No murmur. negative: Tachycardia Abdomen: positive: Nml bowel sounds, Tenderness (Mild epigastric tenderness.). negative: Guarding, Rebound Skin: positive: Warm, Dry Extremities: positive: No pedal edema Neurologic/Psychiatric: negative: Disoriented to person, Disoriented to place - Lab Results Fish Bones: 06/19/20 04:10 06/19/20 04:10 Other Labs: Lab Results x24hrs 06/19/20 06/19/20 06/19/20 Range/Units 06:39 04:10 04:10 WBC 10.5 (4.8-10.8) x10^3/uL RBC 3.93 L (4.20-5.40) 10^6/uL Hgb 13.6 (12.0-16.0) g/dL Hct 41.5 (37.0-47.0) % MCV 105.6 H (81.0-99.0) fL MCH 34.6 H (27.0-31.0) pg MCHC 32.8 (32.0-36.0) g/dL RDW 12.2 (12.0-15.0) % Plt Count 343 (130-450) 10^3/uL MPV 10.7 (7.9-10.8) fL Neut # (Auto) 10.0 H (1.5-6.6) 10^3/uL Lymph # (Auto) 0.4 L (1.5-3.5) 10^3/uL [place] # (Auto) 0.1 (0.0-1.0) 10^3/uL Eos # (Auto) 0.0 (0.0-0.7) 10^3/uL Baso # (Auto) 0.0 (0.0-0.1) 10^3/uL Absolute Nucleated RBC 0.00 x10^3/uL Nucleated RBC % 0.0 /100WBC Bld Gas Analysis Time 0643 Sample Site RIGHT BRACHIAL ABG pH 7.33 L (7.35-7.45) ABG pCO2 68 H* (34-45) mmHg ABG pO2 78 L (80-100) mmHg ABG HCO3 35.5 H (22.0-26.0) mmol/L ABG Total CO2 37.6 H (21.0-29.0) MMOL/L ABG O2 Saturation 96 (94-98) % ABG Base Excess 7.0 H (-2.0-3.0) mmol/L Lance Test POSITIVE VBG pH (7.31-7.41) VBG pCO2 (41-51) mmHg VBG pO2 (25-47) mmHg VBG HCO3 (23-28) mmol/L VBG Total CO2 (24-29) mmol/L VBG O2 Saturation (60-80) % VBG Base Excess (-2 - +2) mmol/L O2 Delivery Device BiPAP Vent Mode SYNCHRONOUS/TIMES FiO2 30.00 Pressure Support Vent 7 cmH2O EPAP 5 cmH2O IPAP 12 cmH2O Sodium 137 (135-145) mmol/L Potassium 4.3 (3.5-5.0) mmol/L Chloride 95 L (101-111) mmol/L Carbon Dioxide 34 H (21-32) mmol/L Anion Gap 8.0 (6-13) BUN 8 (6-20) mg/dL Creatinine 0.3 L (0.4-1.0) mg/dL Estimated GFR (MDRD) 219 (>89) Glucose 135 H (70-100) mg/dL POC Whole Bld Glucose (70 - 100) mg/dL Calcium 8.8 (8.5-10.3) mg/dL Phosphorus 3.3 (2.5-4.6) mg/dL Magnesium 1.9 (1.7-2.8) mg/dL Total Bilirubin (0.2-1.0) mg/dL AST (10-42) IU/L ALT (10-60) IU/L Alkaline Phosphatase (42-121) IU/L Troponin I High Sens (2.3-14.8) ng/L Total Protein (6.7-8.2) g/dL Albumin (3.2-5.5) g/dL Globulin (2.1-4.2) g/dL Albumin/Globulin Ratio (1.0-2.2) Nasal Adenovirus (PCR) Nasal B. parapertussis DNA (PCR) Nasal Coronavir 229E PCR Nasal Coronavir HKU1 PCR Nasal Coronavir NL63 PCR Nasal Coronavir OC43 PCR Nasal Enterovir/Rhinovir PCR Nasal Influenza B PCR Nasal Influenza A PCR Nasal Parainfluen 1 PCR Nasal Parainfluen 2 PCR Nasal Parainfluen 3 PCR Nasal Parainfluen 4 PCR Nasal RSV (PCR) Nasal Screen MRSA (PCR) (NEGATIVE) Nasal B.pertussis DNA PCR Nasal C.pneumoniae (PCR) Kaleb Human Metapneumo PCR Nasal M.pneumoniae (PCR) Nasal SARS-CoV-2 (PCR) 06/18/20 06/18/20 06/18/20 Range/Units 20:37 19:45 18:29 WBC (4.8-10.8) x10^3/uL RBC (4.20-5.40) 10^6/uL Hgb (12.0-16.0) g/dL Hct (37.0-47.0) % MCV (81.0-99.0) fL MCH (27.0-31.0) pg MCHC (32.0-36.0) g/dL RDW (12.0-15.0) % Plt Count (130-450) 10^3/uL MPV (7.9-10.8) fL Neut # (Auto) (1.5-6.6) 10^3/uL Lymph # (Auto) (1.5-3.5) 10^3/uL [place] # (Auto) (0.0-1.0) 10^3/uL Eos # (Auto) (0.0-0.7) 10^3/uL Baso # (Auto) (0.0-0.1) 10^3/uL Absolute Nucleated RBC x10^3/uL Nucleated RBC % /100WBC Bld Gas Analysis Time 1833 Sample Site RIGHT RADIAL ABG pH 7.25 L (7.35-7.45) ABG pCO2 80 H* (34-45) mmHg ABG pO2 87 (80-100) mmHg ABG HCO3 34.1 H (22.0-26.0) mmol/L ABG Total CO2 36.6 H (21.0-29.0) MMOL/L ABG O2 Saturation 96 (94-98) % ABG Base Excess 3.8 H (-2.0-3.0) mmol/L Lance Test POSITIVE VBG pH (7.31-7.41) VBG pCO2 (41-51) mmHg VBG pO2 (25-47) mmHg VBG HCO3 (23-28) mmol/L VBG Total CO2 (24-29) mmol/L VBG O2 Saturation (60-80) % VBG Base Excess (-2 - +2) mmol/L O2 Delivery Device BiPAP Vent Mode SYNCHRONOUS/TIMES FiO2 30.00 Pressure Support Vent 7 cmH2O EPAP 5 cmH2O IPAP 12 cmH2O Sodium (135-145) mmol/L Potassium (3.5-5.0) mmol/L Chloride (101-111) mmol/L Carbon Dioxide (21-32) mmol/L Anion Gap (6-13) BUN (6-20) mg/dL Creatinine (0.4-1.0) mg/dL Estimated GFR (MDRD) (>89) Glucose (70-100) mg/dL POC Whole Bld Glucose 127 H (70 - 100) mg/dL Calcium (8.5-10.3) mg/dL Phosphorus (2.5-4.6) mg/dL Magnesium (1.7-2.8) mg/dL Total Bilirubin (0.2-1.0) mg/dL AST (10-42) IU/L ALT (10-60) IU/L Alkaline Phosphatase (42-121) IU/L Troponin I High Sens (2.3-14.8) ng/L Total Protein (6.7-8.2) g/dL Albumin (3.2-5.5) g/dL Globulin (2.1-4.2) g/dL Albumin/Globulin Ratio (1.0-2.2) Nasal Adenovirus (PCR) Nasal B. parapertussis DNA (PCR) Nasal Coronavir 229E PCR Nasal Coronavir HKU1 PCR Nasal Coronavir NL63 PCR Nasal Coronavir OC43 PCR Nasal Enterovir/Rhinovir PCR Nasal Influenza B PCR Nasal Influenza A PCR Nasal Parainfluen 1 PCR Nasal Parainfluen 2 PCR Nasal Parainfluen 3 PCR Nasal Parainfluen 4 PCR Nasal RSV (PCR) Nasal Screen MRSA (PCR) NEGATIVE (NEGATIVE) Nasal B.pertussis DNA PCR Nasal C.pneumoniae (PCR) Kaleb Human Metapneumo PCR Nasal M.pneumoniae (PCR) Nasal SARS-CoV-2 (PCR) 06/18/20 06/18/20 06/18/20 Range/Units 17:35 17:25 17:25 WBC (4.8-10.8) x10^3/uL RBC (4.20-5.40) 10^6/uL Hgb (12.0-16.0) g/dL Hct (37.0-47.0) % MCV (81.0-99.0) fL MCH (27.0-31.0) pg MCHC (32.0-36.0) g/dL RDW (12.0-15.0) % Plt Count (130-450) 10^3/uL MPV (7.9-10.8) fL Neut # (Auto) (1.5-6.6) 10^3/uL Lymph # (Auto) (1.5-3.5) 10^3/uL [place] # (Auto) (0.0-1.0) 10^3/uL Eos # (Auto) (0.0-0.7) 10^3/uL Baso # (Auto) (0.0-0.1) 10^3/uL Absolute Nucleated RBC x10^3/uL Nucleated RBC % /100WBC Bld Gas Analysis Time Sample Site ABG pH (7.35-7.45) ABG pCO2 (34-45) mmHg ABG pO2 (80-100) mmHg ABG HCO3 (22.0-26.0) mmol/L ABG Total CO2 (21.0-29.0) MMOL/L ABG O2 Saturation (94-98) % ABG Base Excess (-2.0-3.0) mmol/L Lance Test VBG pH 7.212 L (7.31-7.41) VBG pCO2 86.9 H (41-51) mmHg VBG pO2 30.7 (25-47) mmHg VBG HCO3 34.1 H (23-28) mmol/L VBG Total CO2 36.8 H (24-29) mmol/L VBG O2 Saturation 98.1 H (60-80) % VBG Base Excess 2.7 H (-2 - +2) mmol/L O2 Delivery Device Vent Mode FiO2 Pressure Support Vent cmH2O EPAP cmH2O IPAP cmH2O Sodium (135-145) mmol/L Potassium (3.5-5.0) mmol/L Chloride (101-111) mmol/L Carbon Dioxide (21-32) mmol/L Anion Gap (6-13) BUN (6-20) mg/dL Creatinine (0.4-1.0) mg/dL Estimated GFR (MDRD) (>89) Glucose (70-100) mg/dL POC Whole Bld Glucose (70 - 100) mg/dL Calcium (8.5-10.3) mg/dL Phosphorus (2.5-4.6) mg/dL Magnesium (1.7-2.8) mg/dL Total Bilirubin (0.2-1.0) mg/dL AST (10-42) IU/L ALT (10-60) IU/L Alkaline Phosphatase (42-121) IU/L Troponin I High Sens 9.6 (2.3-14.8) ng/L Total Protein (6.7-8.2) g/dL Albumin (3.2-5.5) g/dL Globulin (2.1-4.2) g/dL Albumin/Globulin Ratio (1.0-2.2) Nasal Adenovirus (PCR) NOT DETECTED Nasal B. parapertussis DNA (PCR) NOT DETECTED Nasal Coronavir 229E PCR NOT DETECTED Nasal Coronavir HKU1 PCR NOT DETECTED Nasal Coronavir NL63 PCR NOT DETECTED Nasal Coronavir OC43 PCR NOT DETECTED Nasal Enterovir/Rhinovir PCR NOT DETECTED Nasal Influenza B PCR NOT DETECTED Nasal Influenza A PCR NOT DETECTED Nasal Parainfluen 1 PCR NOT DETECTED Nasal Parainfluen 2 PCR NOT DETECTED Nasal Parainfluen 3 PCR NOT DETECTED Nasal Parainfluen 4 PCR NOT DETECTED Nasal RSV (PCR) NOT DETECTED Nasal Screen MRSA (PCR) (NEGATIVE) Nasal B.pertussis DNA PCR NOT DETECTED Nasal C.pneumoniae (PCR) NOT DETECTED Kaleb Human Metapneumo PCR NOT DETECTED Nasal M.pneumoniae (PCR) NOT DETECTED Nasal SARS-CoV-2 (PCR) NOT DETECTED 06/18/20 06/18/20 Range/Units 17:25 17:25 WBC 14.7 H (4.8-10.8) x10^3/uL RBC 4.45 (4.20-5.40) 10^6/uL Hgb 15.5 (12.0-16.0) g/dL Hct 46.8 (37.0-47.0) % MCV 105.2 H (81.0-99.0) fL MCH 34.8 H (27.0-31.0) pg MCHC 33.1 (32.0-36.0) g/dL RDW 12.5 (12.0-15.0) % Plt Count 436 (130-450) 10^3/uL MPV 10.3 (7.9-10.8) fL Neut # (Auto) 11.7 H (1.5-6.6) 10^3/uL Lymph # (Auto) 1.7 (1.5-3.5) 10^3/uL [place] # (Auto) 1.0 (0.0-1.0) 10^3/uL Eos # (Auto) 0.2 (0.0-0.7) 10^3/uL Baso # (Auto) 0.1 (0.0-0.1) 10^3/uL Absolute Nucleated RBC 0.00 x10^3/uL Nucleated RBC % 0.0 /100WBC Bld Gas Analysis Time Sample Site ABG pH (7.35-7.45) ABG pCO2 (34-45) mmHg ABG pO2 (80-100) mmHg ABG HCO3 (22.0-26.0) mmol/L ABG Total CO2 (21.0-29.0) MMOL/L ABG O2 Saturation (94-98) % ABG Base Excess (-2.0-3.0) mmol/L Lance Test VBG pH (7.31-7.41) VBG pCO2 (41-51) mmHg VBG pO2 (25-47) mmHg VBG HCO3 (23-28) mmol/L VBG Total CO2 (24-29) mmol/L VBG O2 Saturation (60-80) % VBG Base Excess (-2 - +2) mmol/L O2 Delivery Device Vent Mode FiO2 Pressure Support Vent cmH2O EPAP cmH2O IPAP cmH2O Sodium 136 (135-145) mmol/L Potassium 4.0 (3.5-5.0) mmol/L Chloride 93 L (101-111) mmol/L Carbon Dioxide 33 H (21-32) mmol/L Anion Gap 10.0 (6-13) BUN < 5 L (6-20) mg/dL Creatinine 0.3 L (0.4-1.0) mg/dL Estimated GFR (MDRD) 219 (>89) Glucose 140 H (70-100) mg/dL POC Whole Bld Glucose (70 - 100) mg/dL Calcium 9.0 (8.5-10.3) mg/dL Phosphorus 3.7 (2.5-4.6) mg/dL Magnesium 1.8 (1.7-2.8) mg/dL Total Bilirubin 0.7 (0.2-1.0) mg/dL AST 42 (10-42) IU/L ALT 32 (10-60) IU/L Alkaline Phosphatase 107 (42-121) IU/L Troponin I High Sens (2.3-14.8) ng/L Total Protein 6.8 (6.7-8.2) g/dL Albumin 3.3 (3.2-5.5) g/dL Globulin 3.5 (2.1-4.2) g/dL Albumin/Globulin Ratio 0.9 L (1.0-2.2) Nasal Adenovirus (PCR) Nasal B. parapertussis DNA (PCR) Nasal Coronavir 229E PCR Nasal Coronavir HKU1 PCR Nasal Coronavir NL63 PCR Nasal Coronavir OC43 PCR Nasal Enterovir/Rhinovir PCR Nasal Influenza B PCR Nasal Influenza A PCR Nasal Parainfluen 1 PCR Nasal Parainfluen 2 PCR Nasal Parainfluen 3 PCR Nasal Parainfluen 4 PCR Nasal RSV (PCR) Nasal Screen MRSA (PCR) (NEGATIVE) Nasal B.pertussis DNA PCR Nasal C.pneumoniae (PCR) Kaleb Human Metapneumo PCR Nasal M.pneumoniae (PCR) Nasal SARS-CoV-2 (PCR) Assessment/Plan - Problem List (1) Acute on chronic respiratory failure with hypoxia and hypercapnia Impression: This is improved. This was secondary to a COPD exacerbation. Her chest x-ray revealed no obvious infiltrate. She is normally on oxygen as needed. She is currently saturating 92% on 2 L of oxygen via nasal cannula. She is now off of BiPAP and she appears quite comfortable. If she remains stable this afternoon, we will transfer her to [facility]. We will continue with steroids, duo nebs, albuterol as needed. Continue oxygen for goal saturation greater than 88%. She will need an exercise desat study prior to discharge. A noninvasive ventilator is required to reduce hospitalization improve patient's health. BiPAP considered and will likely not be effective. I am ordering a trilogy noninvasive ventilator to treat her COPD and chronic hypoxic and hypercapnic respiratory failure. (2) COPD exacerbation Impression: This is the cause of her acute on chronic hypoxic and hypercapnic respiratory failure. This is improved as mentioned above. We will continue her on cef triaxone 1 g IV daily with today being day 2. We will continue IV site Medrol today and transition to oral prednisone tomorrow to complete 5 days of therapy. Continue with DuoNebs 4 times daily and albuterol as needed. We did discuss pulmonary rehab and she is agreeable to this and a referral will be placed prior to discharge. We also discussed palliative care and she is agreeable to seeing them. I will place an outpatient referral. (3) Cirrhosis with alcoholism Impression: She is a history of cirrhosis secondary to alcohol use. She continues to drink alcohol on a daily basis and we discussed the importance of alcohol cessation. She is eager to quit. We will continue her home lactulose. (4) History of pulmonary embolism Impression: Stable. Continue Xarelto. (5) Alcohol abuse with alcohol-induced disorder Impression: She has shown no evidence of withdrawal at this point in time. We will continue to monitor. Thiamine p.o.
[2020-06-19] MEDS: INSULIN ASPART 300 UNIT/3 ML PEN SUBQ SCH ×4 (08:22→20:10)
[2020-06-19] MEDS: FOLIC ACID 1 MG TABLET PO SCH (08:25)
[2020-06-19] MEDS: CHLORHEXIDINE GLUCONATE 15 ML UDC PO SCH ×2 (08:25→20:02)
[2020-06-19] MEDS: THIAMINE 100 MG TABLET PO SCH (08:28)
[2020-06-19] MEDS: NICOTINE 14 MG PATCH TOP SCH (08:28)
[2020-06-19] MEDS: SODIUM CHLORIDE FLUSH 0.9% 10 ML SYRINGE IVP SCH ×2 (08:28→17:20)
--- NOTE | 2020-06-19 08:46 | PHARMACY PROGRESS NOTE ---
- Best Possible Medication History Admit Date and Time: 06/18/20 1833 Processed by: Pharmacy Medication History completed: Yes Patient Interview: Pt unable to participate Secondary Source(s): Physician records, Pharmacy records, Insurance records As the person ultimately responsible for medication therapy, providers are able to order a medication from an existing home medication list in [facility] via the "Reconcile Routine" prior to Confirmation of that medication by technician support engineer. Such practice is discouraged except when the physician, in their clinical judgment, deems that a medical need exists for a medication without regard to previous use.
[2020-06-19] MEDS ORDERED: ENOXAPARIN 40 MG/0.4 ML SYRINGE SUBQ SCH (09:00)
[2020-06-19] MEDS ORDERED: PROPRANOLOL 10 MG TABLET PO SCH (09:00)
[2020-06-19] MEDS ORDERED: RIVAROXABAN 10 MG TABLET PO SCH (09:00)
[2020-06-19] MEDS: cefTRIAXone 1 GM in SODIUM CHLORIDE 0.9% MINIBAG 100 ML IV SCH (09:05)
[2020-06-19] MEDS: guaiFENesin 600 MG TABLET PO SCH ×2 (11:33→20:07)
[2020-06-19] MEDS: FAMOTIDINE 20 MG TABLET PO SCH (20:07)
[2020-06-19] MEDS: PROPRANOLOL 10 MG TABLET PO SCH (20:08)
[2020-06-19] MEDS: MONTELUKAST 10 MG TABLET PO SCH (20:08)
[2020-06-19] MEDS: ALBUTEROL NEB 2.5 MG/3 ML INH PRN (23:18)
[2020-06-20] MEDS: MORPHINE 2 MG/ML CARPUJECT IVP PRN (02:22)
[2020-06-20] MEDS: SODIUM CHLORIDE FLUSH 0.9% 10 ML SYRINGE IVP SCH ×4 (02:22→23:42)
[2020-06-20] MEDS: LACTULOSE 10 GM /15 ML UDC PO SCH ×3 (05:18→20:35)
[2020-06-20 05:34] LABS: BASOPHILS % (AUTO) 0.2 %; HCT - HEMATOCRIT 41.1 % (37.0-47.0); HGB - HEMOGLOBIN 13.5 g/dL (12.0-16.0); LYMPHOCYTES % (AUTO) 3.9 %; MEAN CORPUSCULAR HEMOGLOBIN 34.8 pg (27.0-31.0); MEAN CORPUSCULAR HGB CONC 32.8 g/dL (32.0-36.0); MEAN CORPUSCULAR VOLUME 105.9 fL (81.0-99.0); MEAN PLATELET VOLUME 10.2 fL (7.9-10.8); MONOCYTES % (AUTO) 5.6 %; NEUTROPHILS % (AUTO) 89.6 %; PLT - PLATELET COUNT 353 10^3/uL (130-450); RED BLOOD COUNT 3.88 10^6/uL (4.20-5.40); RED CELL DISTRIBUTION WIDTH 12.5 % (12.0-15.0); WHITE BLOOD COUNT 21.3 x10^3/uL (4.8-10.8)
[2020-06-20 05:36] LABS: ABNORMAL LYMPHS % (MANUAL) 0 %; BAND NEUTROPHILS % (MANUAL) 0 %
[2020-06-20 05:47] LABS: CALCIUM 8.7 mg/dL (8.5-10.3); CREATININE 0.3 mg/dL (0.4-1.0); MAGNESIUM 1.9 mg/dL (1.7-2.8); PHOSPHORUS 2.9 mg/dL (2.5-4.6); POTASSIUM 3.6 mmol/L (3.5-5.0)
[2020-06-20 05:50] LABS: DIFFERENTIAL COMMENT MANUAL DIFFERENTIAL; LYMPHOCYTES # (MANUAL) 0.9 10^3/uL (1.5-3.5); LYMPHOCYTES % (MANUAL) 4 %; MONOCYTES # (MANUAL) 1.5 10^3/uL (0.0-1.0); PLATELET ESTIMATE, MANUAL NORMAL (130-450,000) (NORMAL); PLATELET MORPHOLOGY NORMAL APPEARANCE (NORMAL); RBC MORPHOLOGY (MULTIPLE) NORMAL APPEARANCE (NORMAL); WBC MORPHOLOGY (MULTIPLE) NORMAL APPEARANCE (NORMAL)
[2020-06-20] MEDS: IPRATROPIUM/ALBUTEROL 3 ML NEB INH SCH ×4 (08:03→19:35)
[2020-06-20] MEDS: BUDESONIDE 0.5 MG/2 ML NEB INH SCH ×2 (08:03→19:35)
[2020-06-20] MEDS: FORMOTEROL FUMARATE NEB 20 MCG/2 ML INH SCH ×2 (08:03→19:35)
--- NOTE | 2020-06-20 08:41 | PROVIDER PROGRESS NOTE ---
Subjective - Prog Note Date Prog Note Date: 06/20/20 - Subjective Subjective: She feels improved overall but still feels a little short of breath today. She has not begun to ambulate yet. She did not require BiPAP overnight. Current Medications - Current Medications Current Medications: Active Medications Acetaminophen (Acetaminophen 325 Mg Tablet) 650 mg PO Q4HR PRN PRN Reason: Pain 1 to 4 Albuterol (Albuterol Neb 2.5 Mg/3 Ml) 2.5 mg INH Q4HR PRN PRN Reason: Wheezing Last Admin: 06/19/20 23:18 Dose: 2.5 mg Documented by: Albuterol/Ipratropium (Ipratropium/Albuterol 3 Ml Neb) 3 ml INH RTQID [facility] Last Admin: 06/20/20 08:03 Dose: 3 ml Documented by: Budesonide (Budesonide 0.5 Mg/2 Ml Neb) 0.5 mg INH RTBID [facility] Last Admin: 06/20/20 08:03 Dose: 0.5 mg Documented by: Chlorhexidine Gluconate (Chlorhexidine Gluconate 15 Ml Udc) 15 ml PO BID [facility] Last Admin: 06/19/20 20:02 Dose: 15 ml Documented by: Famotidine (Famotidine 20 Mg Tablet) 20 mg PO BID [facility] Last Admin: 06/19/20 20:07 Dose: 20 mg Documented by: Folic Acid (Folic Acid 1 Mg Tablet) 1 mg PO DAILY [facility] Last Admin: 06/19/20 08:25 Dose: 1 mg Documented by: Formoterol Fumarate (Formoterol Fumarate Neb 20 Mcg/2 Ml) 20 mcg INH RTBID [facility] Last Admin: 06/20/20 08:03 Dose: 20 mcg Documented by: Furosemide (Furosemide 40 Mg Tablet) 40 mg PO DAILY [facility] Guaifenesin (Guaifenesin 600 Mg Tablet) 600 mg PO BID [facility] Last Admin: 06/19/20 20:07 Dose: 600 mg Documented by: Ceftriaxone Sodium 1 gm/ (Sodium Chloride) 100 mls @ 200 mls/hr IV DAILY [facility] Last Infusion: 06/19/20 09:36 Dose: Infused Documented by: Insulin Aspart (Insulin Aspart 300 Unit/3 Ml Pen) 1 - 9 unit SUBQ 0800,1200,170 0,2100 [facility]; Protocol Last Admin: 06/19/20 20:10 Dose: 5 unit Documented by: Lactulose (Lactulose 10 Gm /15 Ml Udc) 10 gm PO TID [facility] Last Admin: 06/20/20 05:18 Dose: 10 gm Documented by: Montelukast Sodium (Montelukast 10 Mg Tablet) 10 mg PO QPM [facility] Last Admin: 06/19/20 20:08 Dose: 10 mg Documented by: Morphine Sulfate (Morphine 2 Mg/Ml Carpuject) 2 mg IVP Q4HR PRN PRN Reason: Dyspnea Last Admin: 06/20/20 02:22 Dose: 2 mg Documented by: Nicotine (Nicotine 14 Mg Patch) 1 patch TOP DAILY [facility] Last Admin: 06/19/20 08:28 Dose: 1 patch Documented by: Ondansetron HCl (Ondansetron Odt 4 Mg Tablet) 4 mg TL Q6HR PRN PRN Reason: Nausea / Vomiting Ondansetron HCl (Ondansetron 4 Mg/2 Ml Vial) 4 mg IVP Q6HR PRN PRN Reason: Nausea / Vomiting Prednisone (Prednisone 20 Mg Tablet) [facility] [place] (Propranolol 10 Mg Tablet) 10 mg PO BID [facility] Last Admin: 06/19/20 20:08 Dose: 10 mg Documented by: Rivaroxaban (Rivaroxaban 10 Mg Tablet) 10 mg PO DAILY [facility] Sodium Chloride (Sodium Chloride Flush 0.9% 10 Ml Syringe) 10 ml IVP 0100,0900,1700 [facility] Last Admin: 06/20/20 02:22 Dose: 10 ml Documented by: Sodium Chloride (Sodium Chloride Flush 0.9% 10 Ml Syringe) 10 ml IVP PRN PRN PRN Reason: NEEDED PER PROVIDER ORDERS Last Admin: 06/19/20 20:10 Dose: 10 ml Documented by: Spironolactone (Spironolactone 25 Mg Tablet) 50 mg PO DAILY [facility] Thiamine HCl (Thiamine 100 Mg Tablet) 100 mg PO DAILY [facility] Last Admin: 06/19/20 08:28 Dose: 100 mg Documented by: Propranolol [Inderal] 10 mg PO BID 09/21/18 Albuterol Sulfate [Proair Hfa Inhaler] 2 puffs INH Q4H PRN 05/13/20 Furosemide [Lasix] 40 mg PO DAILY 06/19/20 Montelukast [Singulair] 10 mg PO QPM 06/19/20 Rivaroxaban [Xarelto] 10 mg PO DAILY 06/19/20 Spironolactone [Aldactone] 50 mg PO DAILY 06/19/20 Tiotropium [place] [Spiriva] 1 puffs INH DAILY 06/19/20 Objective - Vital Signs/Intake & Output Reviewed Vital Signs: Yes Vital Signs: Vital Signs x48h Temp Pulse Resp BP Pulse Ox 06/20/20 05:26 36.5 C 06/20/20 05:00 87 20 125/62 86 L 06/20/20 04:00 75 22 110/69 93 06/20/20 03:00 80 23 105/55 L 93 06/20/20 02:00 70 23 102/71 96 06/20/20 01:00 75 24 106/59 L 95 Intake & Output: Intake & Output 06/17/20 06/18/20 06/19/20 06/20/20 23:59 23:59 23:59 23:59 Intake Total 100 2500 400 Output Total 0 900 250 Balance 100 1600 150 - Objective General Appearance: positive: No acute distress, Alert Eyes Bilateral: positive: Conjunctivae nml ENT: positive: ENT inspection nml, Other (Nasal cannula in place.) Neck: positive: Nml inspection Respiratory: positive: No respiratory distress, Wheezes (Faint expiratory wheezes.), Other (Diminished bilaterally.). negative: Chest non-tender (She is tender to palpation over the sternum), [place] Cardiovascular: positive: Regular rate & rhythm. negative: Tachycardia, Systolic murmur Abdomen: positive: No distention, Tenderness (Mild epigastric tenderness.). negative: Non-tender Skin: positive: Warm, Dry Extremities: positive: No pedal edema - Lab Results Fish Bones: 06/20/20 05:30 06/20/20 05:30 Other Labs: Lab Results x24hrs 06/20/20 06/20/20 06/20/20 Range/Units 08:05 05:30 05:30 WBC 21.3 H (4.8-10.8) x10^3/uL RBC 3.88 L (4.20-5.40) 10^6/uL Hgb 13.5 (12.0-16.0) g/dL Hct 41.1 (37.0-47.0) % MCV 105.9 H (81.0-99.0) fL MCH 34.8 H (27.0-31.0) pg MCHC 32.8 (32.0-36.0) g/dL RDW 12.5 (12.0-15.0) % Plt Count 353 (130-450) 10^3/uL MPV 10.2 (7.9-10.8) fL Neut # (Auto) Not Reportable Lymph # (Auto) Not Reportable [place] # (Auto) Not Reportable Eos # (Auto) Not Reportable Baso # (Auto) Not Reportable Absolute Nucleated RBC Not Reportable Total Counted 100 Band Neuts % (Manual) 0 (0 - 10) % Abnorm Lymph % (Manual) 0 % Nucleated RBC % Not Reportable Neutrophils # (Manual) 19.0 H (1.5-6.6) 10^3/uL Lymphocytes # (Manual) 0.9 L (1.5-3.5) 10^3/uL Monocytes # (Manual) 1.5 H (0.0-1.0) 10^3/uL Eosinophils # (Manual) 0.0 (0-0.7) 10^3/uL Basophils # (Manual) 0.0 (0-0.1) 10^3/uL Differential Comment MANUAL DIFFERENTIAL WBC Morphology NORMAL APPEARANCE (NORMAL) Platelet Estimate NORMAL (130-450,000) (NORMAL) Platelet Morphology NORMAL APPEARANCE (NORMAL) RBC Morph Micro Appear NORMAL APPEARANCE (NORMAL) Sodium 138 (135-145) mmol/L Potassium 3.6 (3.5-5.0) mmol/L Chloride 98 L (101-111) mmol/L Carbon Dioxide 32 (21-32) mmol/L Anion Gap 8.0 (6-13) BUN 10 (6-20) mg/dL Creatinine 0.3 L (0.4-1.0) mg/dL Estimated GFR (MDRD) 219 (>89) Glucose 126 H (70-100) mg/dL POC Whole Bld Glucose 89 (70 - 100) mg/dL Calcium 8.7 (8.5-10.3) mg/dL Phosphorus 2.9 (2.5-4.6) mg/dL Magnesium 1.9 (1.7-2.8) mg/dL 06/19/20 06/19/20 06/19/20 Range/Units 20:01 16:38 11:40 WBC (4.8-10.8) x10^3/uL RBC (4.20-5.40) 10^6/uL Hgb (12.0-16.0) g/dL Hct (37.0-47.0) % MCV (81.0-99.0) fL MCH (27.0-31.0) pg MCHC (32.0-36.0) g/dL RDW (12.0-15.0) % Plt Count (130-450) 10^3/uL MPV (7.9-10.8) fL Neut # (Auto) Lymph # (Auto) [place] # (Auto) Eos # (Auto) Baso # (Auto) Absolute Nucleated RBC Total Counted Band Neuts % (Manual) (0 - 10) % Abnorm Lymph % (Manual) % Nucleated RBC % Neutrophils # (Manual) (1.5-6.6) 10^3/uL Lymphocytes # (Manual) (1.5-3.5) 10^3/uL Monocytes # (Manual) (0.0-1.0) 10^3/uL Eosinophils # (Manual) (0-0.7) 10^3/uL Basophils # (Manual) (0-0.1) 10^3/uL Differential Comment WBC Morphology (NORMAL) Platelet Estimate (NORMAL) Platelet Morphology (NORMAL) RBC Morph Micro Appear (NORMAL) Sodium (135-145) mmol/L Potassium (3.5-5.0) mmol/L Chloride (101-111) mmol/L Carbon Dioxide (21-32) mmol/L Anion Gap (6-13) BUN (6-20) mg/dL Creatinine (0.4-1.0) mg/dL Estimated GFR (MDRD) (>89) Glucose (70-100) mg/dL POC Whole Bld Glucose 231 H 164 H 132 H (70 - 100) mg/dL Calcium (8.5-10.3) mg/dL Phosphorus (2.5-4.6) mg/dL Magnesium (1.7-2.8) mg/dL ABX Reporting Has patient been on IV antibiotics over the past 48 hours?: Yes Assessment/Plan - Problem List (1) Acute on chronic respiratory failure with hypoxia and hypercapnia Impression: This is secondary to the COPD exacerbation. She continues to improve on a daily basis. She remains on supplemental oxygen but is no longer requiring BiPAP. She has been transferred out of the intensive care unit to [facility]. We will continue treatment of underlying COPD exacerbation with prednisone orally, ceftriaxone IV, duo nebs and albuterol as needed. She is improving but still needs more time. I suspect she will need 1-2 more days of hospitalization. I have encouraged her to ambulate as tolerated. She will be referred to pulmonary rehab on outpatient basis as well as palliative care. (2) COPD exacerbation Impression: She continues to improve but she is not ready to go home yet. She remains on supplemental oxygen still has dyspnea with minimal exertion. She is no longer requiring BiPAP. We will switch her to oral prednisone 40 mg daily. Continue with duo nebs and albuterol as needed. Today is day 3 of ceftriaxone. She will need an exercise desaturation test prior to discharge and appropriate inhaler therapy. (3) Cirrhosis with alcoholism Impression: Stable. We have continue lactulose. (4) History of pulmonary embolism Impression: Stable. Continue Xarelto. (5) Alcohol abuse with alcohol-induced disorder Impression: She has not shown evidence of withdrawal. She is eager to quit alcohol use and is very motivated. Social work has been consulted to help provide her with resources. Continue with thiamine. (6) GERD (gastroesophageal reflux disease) Impression: We have placed her on Pepcid with some improvement. Will consider Protonix if she continues to have symptoms despite the use of Pepcid.
[2020-06-20] MEDS: FUROSEMIDE 40 MG TABLET PO SCH (08:53)
[2020-06-20] MEDS: SPIRONOLACTONE 25 MG TABLET PO SCH (08:53)
[2020-06-20] MEDS: FAMOTIDINE 20 MG TABLET PO SCH ×2 (08:53→20:34)
[2020-06-20] MEDS: guaiFENesin 600 MG TABLET PO SCH ×2 (08:53→20:34)
[2020-06-20] MEDS: THIAMINE 100 MG TABLET PO SCH (08:54)
[2020-06-20] MEDS: predniSONE 20 MG TABLET PO SCH (08:54)
[2020-06-20] MEDS: RIVAROXABAN 10 MG TABLET PO SCH (08:55)
[2020-06-20] MEDS: FOLIC ACID 1 MG TABLET PO SCH (08:56)
[2020-06-20] MEDS: CHLORHEXIDINE GLUCONATE 15 ML UDC PO SCH ×2 (08:56→20:35)
[2020-06-20] MEDS: PROPRANOLOL 10 MG TABLET PO SCH ×2 (08:56→20:34)
[2020-06-20] MEDS: cefTRIAXone 1 GM in SODIUM CHLORIDE 0.9% MINIBAG 100 ML IV SCH (08:56)
[2020-06-20] MEDS: INSULIN ASPART 300 UNIT/3 ML PEN SUBQ SCH ×4 (08:57→20:33)
[2020-06-20] MEDS: NICOTINE 14 MG PATCH TOP SCH (09:09)
[2020-06-20] MEDS: ALBUTEROL NEB 2.5 MG/3 ML INH PRN (10:06)
[2020-06-20] MEDS ORDERED: MIN OIL/DIMETHICON/COCONUT OIL 92 GM TUBE TOP PRN (11:46)
[2020-06-20] MEDS: BENZONATATE 100 MG CAPSULE PO PRN ×2 (19:30→22:35)
[2020-06-20] MEDS: MONTELUKAST 10 MG TABLET PO SCH (20:34)
[2020-06-20] MEDS: ACETAMINOPHEN 325 MG TABLET PO PRN (22:27)
[2020-06-21 05:16] LABS: BASOPHILS % (AUTO) 0.3 %; EOSINOPHILS % (AUTO) 0.3 %; HCT - HEMATOCRIT 42.9 % (37.0-47.0); LYMPHOCYTES # (AUTO) 1.8 10^3/uL (1.5-3.5); LYMPHOCYTES % (AUTO) 13.5 %; MEAN CORPUSCULAR HEMOGLOBIN 34.8 pg (27.0-31.0); MEAN CORPUSCULAR HGB CONC 32.6 g/dL (32.0-36.0); MEAN CORPUSCULAR VOLUME 106.7 fL (81.0-99.0); MEAN PLATELET VOLUME 10.7 fL (7.9-10.8); MONOCYTES # (AUTO) 1.2 10^3/uL (0.0-1.0); MONOCYTES % (AUTO) 8.8 %; NEUTROPHILS % (AUTO) 75.9 %; PLT - PLATELET COUNT 318 10^3/uL (130-450); RED BLOOD COUNT 4.02 10^6/uL (4.20-5.40); RED CELL DISTRIBUTION WIDTH 12.5 % (12.0-15.0); WHITE BLOOD COUNT 13.1 x10^3/uL (4.8-10.8)
[2020-06-21 05:26] LABS: CALCIUM 8.5 mg/dL (8.5-10.3); CREATININE 0.4 mg/dL (0.4-1.0); MAGNESIUM 1.8 mg/dL (1.7-2.8); PHOSPHORUS 3.8 mg/dL (2.5-4.6); POTASSIUM 3.1 mmol/L (3.5-5.0)
[2020-06-21] MEDS: LACTULOSE 10 GM /15 ML UDC PO SCH ×3 (05:59→21:02)
[2020-06-21] MEDS: BENZONATATE 100 MG CAPSULE PO PRN ×3 (06:00→23:38)
[2020-06-21] MEDS: BUDESONIDE 0.5 MG/2 ML NEB INH SCH ×2 (07:09→19:53)
[2020-06-21] MEDS: FORMOTEROL FUMARATE NEB 20 MCG/2 ML INH SCH ×2 (07:09→19:53)
[2020-06-21] MEDS: IPRATROPIUM/ALBUTEROL 3 ML NEB INH SCH ×4 (07:09→19:54)
[2020-06-21] MEDS ORDERED: POTASSIUM CHLORIDE 20 MEQ TABLET PO ONE (07:36)
[2020-06-21] MEDS: FUROSEMIDE 40 MG TABLET PO SCH (08:19)
[2020-06-21] MEDS: FAMOTIDINE 20 MG TABLET PO SCH (08:19)
[2020-06-21] MEDS: RIVAROXABAN 10 MG TABLET PO SCH (08:19)
[2020-06-21] MEDS: PROPRANOLOL 10 MG TABLET PO SCH ×2 (08:19→21:02)
[2020-06-21] MEDS: SPIRONOLACTONE 25 MG TABLET PO SCH (08:21)
[2020-06-21] MEDS: THIAMINE 100 MG TABLET PO SCH (08:21)
[2020-06-21] MEDS: predniSONE 20 MG TABLET PO SCH (08:21)
[2020-06-21] MEDS: guaiFENesin 600 MG TABLET PO SCH ×2 (08:21→21:02)
[2020-06-21] MEDS: NICOTINE 14 MG PATCH TOP SCH (08:22)
[2020-06-21] MEDS: FOLIC ACID 1 MG TABLET PO SCH (08:22)
[2020-06-21] MEDS: INSULIN ASPART 300 UNIT/3 ML PEN SUBQ SCH ×4 (08:26→20:50)
[2020-06-21] MEDS: cefTRIAXone 1 GM in SODIUM CHLORIDE 0.9% MINIBAG 100 ML IV SCH (08:26)
[2020-06-21] MEDS: SODIUM CHLORIDE FLUSH 0.9% 10 ML SYRINGE IVP SCH ×3 (08:27→23:33)
[2020-06-21] MEDS: CHLORHEXIDINE GLUCONATE 15 ML UDC PO SCH ×2 (08:42→21:02)
--- NOTE | 2020-06-21 11:27 | PROVIDER PROGRESS NOTE ---
Subjective - Prog Note Date Prog Note Date: 06/21/20 - Subjective Subjective: She feels improved today but still at about 50% of her baseline. She was able to walk in her room but became dyspneic pretty quickly and still had a significant cough. She feels like she needs 1 more day in the hospital. She has been tolerating a diet. Still has a little bit of heartburn. She is very eager to quit smoking. Current Medications - Current Medications Current Medications: Active Medications Acetaminophen (Acetaminophen 325 Mg Tablet) 650 mg PO Q4HR PRN PRN Reason: Pain 1 to 4 Last Admin: 06/20/20 22:27 Dose: 650 mg Documented by: Albuterol (Albuterol Neb 2.5 Mg/3 Ml) 2.5 mg INH Q4HR PRN PRN Reason: Wheezing Last Admin: 06/20/20 10:06 Dose: 2.5 mg Documented by: Albuterol/Ipratropium (Ipratropium/Albuterol 3 Ml Neb) 3 ml INH RTQID [facility] Last Admin: 06/21/20 07:09 Dose: 3 ml Documented by: Benzonatate (Benzonatate 100 Mg Capsule) 100 mg PO TID PRN PRN Reason: Cough Last Admin: 06/21/20 06:00 Dose: 100 mg Documented by: Budesonide (Budesonide 0.5 Mg/2 Ml Neb) 0.5 mg INH RTBID [facility] Last Admin: 06/21/20 07:09 Dose: 0.5 mg Documented by: Chlorhexidine Gluconate (Chlorhexidine Gluconate 15 Ml Udc) 15 ml PO BID [facility] Last Admin: 06/21/20 08:42 Dose: 15 ml Documented by: Famotidine (Famotidine 20 Mg Tablet) 20 mg PO BID [facility] Last Admin: 06/21/20 08:19 Dose: 20 mg Documented by: Folic Acid (Folic Acid 1 Mg Tablet) 1 mg PO DAILY [facility] Last Admin: 06/21/20 08:22 Dose: 1 mg Documented by: Formoterol Fumarate (Formoterol Fumarate Neb 20 Mcg/2 Ml) 20 mcg INH RTBID [facility] Last Admin: 06/21/20 07:09 Dose: 20 mcg Documented by: Furosemide (Furosemide 40 Mg Tablet) 40 mg PO DAILY [facility] Last Admin: 06/21/20 08:19 Dose: 40 mg Documented by: Guaifenesin (Guaifenesin 600 Mg Tablet) 600 mg PO BID [facility] Last Admin: 06/21/20 08:21 Dose: 600 mg Documented by: Ceftriaxone Sodium 1 gm/ (Sodium Chloride) 100 mls @ 200 mls/hr IV DAILY [facility] Last Infusion: 06/21/20 09:21 Dose: Infused Documented by: Insulin Aspart (Insulin Aspart 300 Unit/3 Ml Pen) 1 - 9 unit SUBQ 0800,1200,1700,2100 [facility]; Protocol Last Admin: 06/21/20 08:26 Dose: Not Given Documented by: Lactulose (Lactulose 10 Gm /15 Ml Udc) 10 gm PO TID [facility] Last Admin: 06/21/20 05:59 Dose: 10 gm Documented by: Mineral Oil (Min Oil/Dimethicon/Coconut Oil 92 Gm Tube) 1 applic TOP PRN PRN PRN Reason: Skin Care Last Admin: 06/20/20 13:37 Dose: 1 applic Documented by: Montelukast Sodium (Montelukast 10 Mg Tablet) 10 mg PO QPM [facility] Last Admin: 06/20/20 20:34 Dose: 10 mg Documented by: Morphine Sulfate (Morphine 2 Mg/Ml Carpuject) 2 mg IVP Q4HR PRN PRN Reason: Dyspnea Last Admin: 06/20/20 02:22 Dose: 2 mg Documented by: Nicotine (Nicotine 14 Mg Patch) 1 patch TOP DAILY [facility] Last Admin: 06/21/20 08:22 Dose: 1 patch Documented by: Ondansetron HCl (Ondansetron Odt 4 Mg Tablet) 4 mg TL Q6HR PRN PRN Reason: Nausea / Vomiting Ondansetron HCl (Ondansetron 4 Mg/2 Ml Vial) 4 mg IVP Q6HR PRN PRN Reason: Nausea / Vomiting Prednisone (Prednisone 20 Mg Tablet) 40 mg PO DAILYWM [facility] Last Admin: 06/21/20 08:21 Dose: 40 mg Documented by: Propranolol HCl (Propranolol 10 Mg Tablet) 10 mg PO BID [facility] Last Admin: 06/21/20 08:19 Dose: 10 mg Documented by: Rivaroxaban (Rivaroxaban 10 Mg Tablet) 10 mg PO DAILY [facility] Last Admin: 06/21/20 08:19 Dose: 10 mg Documented by: Sodium Chloride (Sodium Chloride Flush 0.9% 10 Ml Syringe) 10 ml IVP 0100,0900, 1700 [facility] Last Admin: 06/21/20 08:27 Dose: 10 ml Documented by: Sodium Chloride (Sodium Chloride Flush 0.9% 10 Ml Syringe) 10 ml IVP PRN PRN PRN Reason: NEEDED PER PROVIDER ORDERS Last Admin: 06/19/20 20:10 Dose: 10 ml Documented by: Spironolactone (Spironolactone 25 Mg Tablet) 50 mg PO DAILY [facility] Last Admin: 06/21/20 08:21 Dose: 50 mg Documented by: Thiamine HCl (Thiamine 100 Mg Tablet) 100 mg PO DAILY [facility] Last Admin: 06/21/20 08:21 Dose: 100 mg Documented by: Propranolol [Inderal] 10 mg PO BID 09/21/18 Albuterol Sulfate [Proair Hfa Inhaler] 2 puffs INH Q4H PRN 05/13/20 Furosemide [Lasix] 40 mg PO DAILY 06/19/20 Montelukast [Singulair] 10 mg PO QPM 06/19/20 Rivaroxaban [Xarelto] 10 mg PO DAILY 06/19/20 Spironolactone [Aldactone] 50 mg PO DAILY 06/19/20 Tiotropium [place] [Spiriva] 1 puffs INH DAILY 06/19/20 Objective - Vital Signs/Intake & Output Reviewed Vital Signs: Yes Vital Signs: Vital Signs x48h Temp Pulse Pulse Resp BP Pulse Ox 06/21/20 09:00 36.4 C L 78 22 135/88 H 93 06/21/20 07:10 88 16 06/21/20 04:34 36.3 C L 84 20 130/81 H 98 Intake & Output: Intake & Output 06/18/20 06/19/20 06/20/20 06/21/20 23:59 23:59 23:59 23:59 Intake Total 100 2500 2067 450 Output Total 0 900 1425 Balance 100 1600 642 450 - Objective General Appearance: positive: No acute distress, Alert Eyes Bilateral: positive: Normal inspection, Conjunctivae nml ENT: positive: ENT inspection nml, Other (Nasal cannula in place.) Neck: positive: Nml inspection Respiratory: positive: No respiratory distress, Wheezes (Faint expiratory wheezes), Other (Diminished bilaterally.). negative: Chest non-tender (Sternum is tender to palpation.) Cardiovascular: positive: Regular rate & rhythm. negative: Tachycardia, Systolic murmur Abdomen: positive: Tenderness (Mild epigastric tenderness.) Skin: positive: Warm, Dry Extremities: positive: No pedal edema Neurologic/Psychiatric: negative: Disoriented to person, Disoriented to place - Lab Results Fish Bones: 06/21/20 04:30 06/21/20 04:30 Other Labs: Lab Results x24hrs 06/21/20 06/21/20 06/21/20 Range/Units 11:06 06:33 04:30 WBC (4.8-10.8) x10^3/uL RBC (4.20-5.40) 10^6/uL Hgb (12.0-16.0) g/dL Hct (37.0-47.0) % MCV (81.0-99.0) fL MCH (27.0-31.0) pg MCHC (32.0-36.0) g/dL RDW (12.0-15.0) % Plt Count (130-450) 10^3/uL MPV (7.9-10.8) fL Neut # (Auto) (1.5-6.6) 10^3/uL Lymph # (Auto) (1.5-3.5) 10^3/uL [place] # (Auto) (0.0-1.0) 10^3/uL Eos # (Auto) (0.0-0.7) 10^3/uL Baso # (Auto) (0.0-0.1) 10^3/uL Absolute Nucleated RBC x10^3/uL Nucleated RBC % /100WBC Sodium 138 (135-145) mmol/L Potassium 3.1 L (3.5-5.0) mmol/L Chloride 95 L (101-111) mmol/L Carbon Dioxide 34 H (21-32) mmol/L Anion Gap 9.0 (6-13) BUN 12 (6-20) mg/dL Creatinine 0.4 (0.4-1.0) mg/dL Estimated GFR (MDRD) 157 (>89) Glucose 93 (70-100) mg/dL POC Whole Bld Glucose 143 H 89 (70 - 100) mg/dL Calcium 8.5 (8.5-10.3) mg/dL Phosphorus 3.8 (2.5-4.6) mg/dL Magnesium 1.8 (1.7-2.8) mg/dL 06/21/20 06/20/20 06/20/20 Range/Units 04:30 20:19 16:49 WBC 13.1 H (4.8-10.8) x10^3/uL RBC 4.02 L (4.20-5.40) 10^6/uL Hgb 14.0 (12.0-16.0) g/dL Hct 42.9 (37.0-47.0) % MCV 106.7 H (81.0-99.0) fL MCH 34.8 H (27.0-31.0) pg MCHC 32.6 (32.0-36.0) g/dL RDW 12.5 (12.0-15.0) % Plt Count 318 (130-450) 10^3/uL MPV 10.7 (7.9-10.8) fL Neut # (Auto) 10.0 H (1.5-6.6) 10^3/uL Lymph # (Auto) 1.8 (1.5-3.5) 10^3/uL [place] # (Auto) 1.2 H (0.0-1.0) 10^3/uL Eos # (Auto) 0.0 (0.0-0.7) 10^3/uL Baso # (Auto) 0.0 (0.0-0.1) 10^3/uL Absolute Nucleated RBC 0.00 x10^3/uL Nucleated RBC % 0.0 /100WBC Sodium (135-145) mmol/L Potassium (3.5-5.0) mmol/L Chloride (101-111) mmol/L Carbon Dioxide (21-32) mmol/L Anion Gap (6-13) BUN (6-20) mg/dL Creatinine (0.4-1.0) mg/dL Estimated GFR (MDRD) (>89) Glucose (70-100) mg/dL POC Whole Bld Glucose 109 H 92 (70 - 100) mg/dL Calcium (8.5-10.3) mg/dL Phosphorus (2.5-4.6) mg/dL Magnesium (1.7-2.8) mg/dL 05/14/21 Range/Units 11:43 WBC (4.8-10.8) x10^3/uL RBC (4.20-5.40) 10^6/uL Hgb (12.0-16.0) g/dL Hct (37.0-47.0) % MCV (81.0-99.0) fL MCH (27.0-31.0) pg MCHC (32.0-36.0) g/dL RDW (12.0-15.0) % Plt Count (130-450) 10^3/uL MPV (7.9-10.8) fL Neut # (Auto) (1.5-6.6) 10^3/uL Lymph # (Auto) (1.5-3.5) 10^3/uL [place] # (Auto) (0.0-1.0) 10^3/uL Eos # (Auto) (0.0-0.7) 10^3/uL Baso # (Auto) (0.0-0.1) 10^3/uL Absolute Nucleated RBC x10^3/uL Nucleated RBC % /100WBC Sodium (135-145) mmol/L Potassium (3.5-5.0) mmol/L Chloride (101-111) mmol/L Carbon Dioxide (21-32) mmol/L Anion Gap (6-13) BUN (6-20) mg/dL Creatinine (0.4-1.0) mg/dL Estimated GFR (MDRD) (>89) Glucose (70-100) mg/dL POC Whole Bld Glucose 112 H (70 - 100) mg/dL Calcium (8.5-10.3) mg/dL Phosphorus (2.5-4.6) mg/dL Magnesium (1.7-2.8) mg/dL ABX Reporting Has patient been on IV antibiotics over the past 48 hours?: Yes Assessment/Plan - Problem List (1) Acute on chronic respiratory failure with hypoxia and hypercapnia Impression: She continues to improve and she is now down to 1 L of oxygen. She is normally on oxygen as needed. Given she still has dyspnea with minimal exertion does not feel ready to go home, we will keep her hospitalized 1 more day. We will continue oral prednisone and duo nebs with albuterol as needed. She will have an exercise desaturation test prior to discharge as I suspect she will need oxygen at rest and with exertion. We will have our referral to pulmonary rehab on discharge and outpatient palliative care consult. Continue supplemental oxygen for goal saturation greater than 88%. (2) COPD exacerbation Impression: She continues to improve on a daily basis. Given she still has dyspnea with minimal exertion and feels at about 50% of her baseline, we will keep her hospitalized for 1 more night. She will likely be ready for discharge tomorrow. We will continue oral prednisone given she is able to take p.o. and there is no need for IV Solu-Medrol. Tomorrow will be the last day of steroids. Tomorrow will be the last day of antibiotics to complete 5 days of therapy. We will continue with duo nebs [id number] with albuterol as needed. She will be discharged on to ectropium which she is already on. I have prescribed her a nebulizer and Perforomist to treat her COPD. (3) Cirrhosis with alcoholism Impression: Stable. We have continued lactulose. (4) History of pulmonary embolism Impression: Stable. Continue Eliquis. (5) Alcohol abuse with alcohol-induced disorder Impression: She has not shown evidence of withdrawal. Continue thiamine. She was counseled on alcohol cessation and is agreeable to this. Social work has provided her with resources. (6) GERD (gastroesophageal reflux disease) Impression: She has had improvement with Pepcid but still has symptoms. We will trial her on a PPI.
--- NOTE | 2020-06-21 17:53 | Discharge Plan ---
Discharge Plan Problem Reviewed?: Yes Disposition: Home, Self Care Condition: Stable Prescriptions: Pantoprazole [Protonix] 40 mg PO QDAC #40 tablet Diet: Regular Activity Restrictions: Activity as Tolerated Instruction Topics: COPD Dc Health Concerns: You were admitted to the hospital because of exacerbation of your COPD. This caused your carbon dioxide levels to be elevated he needed to be treated with BiPAP in the intensive care unit. We also treated you with steroids, antibiotics and breathing treatments. You have had improvement in your COPD and you are now stable for discharge. Plan of Treatment: The plan is to continue your home inhalers as you were previously taking. We will also prescribe you a new inhaler called Perforomist which she will take twice a day. We have also prescribed you a nebulizer to take as needed. You will need one litre of oxygen at rest and with any activity. We did prescribe you a trilogy machine which you should use at night when you are at home. You can also use this throughout the day when you have difficulty breathing. We have also prescribed you Protonix to take for your heartburn. A referral to the pulmonary rehab has been made and it is recommended that you follow-up with them. A referral to palliative care has also been made and it is encouraged that you follow-up with them on outpatient basis. Please stop drinking alcohol and smoking as this will continue to affect your lungs. Please make sure to take it easy from a physical standpoint over the next few days as your lungs continue to recover. It is important to listen to your body and to rest when it is necessary. It will take you a few days to increase your activity level and to feel how you were before becoming sick. Care Goals: The goal is to have you stop smoking and to help prevent further exacerbations of your COPD to improve your quality of life and prevent you from being hospitalized. Assessment: The patient expressed understanding of the treatment plan. Additional Instructions or Follow Up instructions: Please follow-up with your primary care provider in 1 week. Please also follow- up with the pulmonary rehab as well as palliative care. Follow-Up Care: [facility] - Pulmonary No Smoking: If you smoke, Please STOP! Call for help. Follow-up with: STACY PRAKASH MD [Primary Care Provider] -
--- NOTE | 2020-06-21 17:59 | DISCHARGE SUMMARY ---
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 COPD exacerbation - improved. Cirrhosis with alcoholism - stable. History of pulmonary embolism - stable. Alcohol abuse - stable. GERD - stable. - HPI History of Present Illness: H&P per Dr. Sorensen: The patient has chronic lumbar radiculopathy with a foot drop as well as chronic ongoing alcohol and tobacco abuse resulting in alcoholic liver disease, anasarca. She has chronic right foot edema and chronic redness from venous st asis. Her venous stasis has been severe enough that she has had blistering and rupturing of the blistering. She was admitted once in 2019 because of this. She has a history of COPD and is on 2 L nasal cannula at home for this for about 6 months. When she was first on it, it was prn. Now she's using it 30/08 but can't say why. Medications are albuterol HFA inhaler/Advair/Spiriva/singulair. She continues to be an every day smoker and drinker. 2 years ago she reached a crisis with her health due to her drinking and went into liver failure. She was hospitalized several times in 2019, stabilized. She then went into rehab. Was able to stop smoking and drinking for about 2 months. She then started sliding because "I felt so good" that she went back to drinking and smoking. She is up to 4 small bottles of wine a day. Each bottle is called a "glass". She is up to 1 pack/day of smoking. A few months ago she could mow her lawn. She cannot walk across the room right now. She describes her self as still independent with cleaning her own house, paying her own bills, cooking, cleaning but in the last few weeks she slowed down considerably. Again she cannot say why but she is more tired, more short of breath, coughing more. She had 4 visits to the ER in a month and on visit #5, she had the flu shot on June 03. It was flu shot #2. Within a couple of hours she had abrupt worsening of nausea and vomiting, generalized abd pain, diarrhea and sob that she had for weeks. She had also been out of her Xarelto for 3 days. Xarelto is for history of DVT and PE in the past. The PE was associated with her liver failure in 2018 but was also present years ago as well. The N/V then resulted in decompensation of her breathing and she was severely short of breath. She came to the emergency room and because of elevated troponins in the 70s that increased to 111, she was transferred to [facility]. CTA was neg for PE. "she had lateral T wave inversion on 05/14 that was not present on 05/13, and these appear to deepen on the EKG performed 05/29. Her troponin was normal on 05/29 but tonight it is 76.7 and 2-hour repeat is 111. The Q waves on [facility]'s EKG have been present on previous EKGs going back at least several months. She has h/o COPD but says she only uses oxygen PRN and typically only 1 liter/min at night. During ED stay she desaturates when asleep (as low as mid-70s), but improves when woken (and instructed to breathe through nose, with 4 liters/min NC oxygen applied) and rapidly improves to low 90s. Because of her significant T inversions with ST depression and elevated troponins, I contacted [facility] and spoke with hospitalist (Dr. Francis) who accepts transfer to [facility]; she recommends heparin per PE protocol, and this is initiated in [facility] ED prior to transfer." She was told that she had "costochondritis" induced by the sudden nausea and vomiting but was not having a heart attack. Echocardiogram and stress test were negative. She continues to have vague chest aching in the anterior chest wall especially with movement, coughing, deep breath. She presented to the emergency room with acute on chronic shortness of breath. She has chronic daily phlegm production of white phlegm that has not changed. She denies fever, chills, hemoptysis, and no one else is sick around her. Appetite is the same as always. No change in her bowel habits because of this for the last few days. The diarrhea has resolved. She feels that her shortness of breath and wheezing became much more severe today for unknown reasons. With today's visit, temperature was 36.6, heart rate 116, respiration rate 26. Blood pressure 203/102 with an O2 sat of 58% on room air. She was tachypneic with very diminished breath sounds throughout all lung prieto and way too quiet lungs without wheezing. She had no calf tenderness or cord palpable. BMP was normal except for glucose 140. Troponin was normal at 9.6. Covid negative. W amanda cell count 14.7, hemoglobin 15.5. Platelet 436. Blood gas showed a pH of 7.2, PCO2 86.9, PO2 30.7. Bicarb 34.1. A right radial arterial plaque showed a pH of 7.25, PCO2 80, PO2 87, bicarb 34.1, base excess +3.8. Chest x-ray did not have any acute cardiopulmonary changes. There were no pleural effusions. Treatment consisted of albuterol, Rocephin, DuoNeb, methylprednisolone, morphine, and after no response or improvement she was put on BiPAP. We are now asked to admit her for acute on chronic respiratory failure with hypoxemia and hypercapnia due to COPD exacerbation. The patient is followed by her primary care provider, Ami Ghotra at the [facility]. She does not have any specialty follow-up. I have reviewed her medical records from [facility] with her admission June 04 and discharge June 05. Medications in the ER were reviewed but not able to be recorded by RN. She is on Tylenol, albuterol HFA, Advair, Lasix 40, lactulose, Singulair, nicotine patch, Zofran, prednisone 40 mg daily, propranolol 10 daily, spironolactone 50 daily, Spiriva daily, Xarelto 10 daily. - HOSPITAL COURSE Hospital Course: She was admitted to the intensive care unit for acute on chronic hypercapnic and hypoxic respiratory failure secondary to a COPD exacerbation. She was treated with IV Solu-Medrol, ceftriaxone, duo nebs [id number]. She was also placed on BiPAP therapy given the hypercapnia. She required BiPAP for less than 24 hours with improvement in her ABG. She was weaned to supplemental oxygen the following day of admission. She was then transferred to [facility]. Her Solu-Medrol was then transitioned to oral prednisone on hospital day 3. She was continued on duo nebs with albuterol as needed with improvement in her dyspnea. She did have heartburn and she was trialed on Pepcid with only minimal improveme nt. She was then started on Protonix. An exercise desaturation test was obtained prior to discharge which shows that she needs one litre of oxygen at rest and with activity. Given the severity of her COPD, I did order a trilogy machine for her as well. I also prescribed her Perforomist in addition to the Tiotropium. We did discuss outpatient pulmonary rehab and palliative care consult and she is agreeable to this and both of these referrals were placed. She is now stable for discharge. She completed 5 days of prednisone and antibiotics during this hospitalization and was not discharged on either of these. She was also counseled on the importance of alcohol and tobacco cessation. She is motivated to quit and states she already has nicotine patches at home and does not need a prescription for this. - ALLERGIES Allergies/Adverse Reactions: Allergies Allergy/AdvReac Type Severity Reaction Status Date / Time Latex, Natural Rubber Allergy Rash Verified 06/18/20 17:36 lisinopril Allergy Respiratory Verified 06/18/20 17:36 - MEDICATIONS Home Medications: Ambulatory Orders Medication Instructions Recorded Confirmed Propranolol [Inderal] 10 mg PO BID 09/21/18 06/19/20 Albuterol Sulfate [Proair Hfa 2 puffs INH Q4H PRN 05/13/20 06/19/20 Inhaler] Furosemide [Lasix] 40 mg PO DAILY 06/19/20 06/19/20 Montelukast [Singulair] 10 mg PO QPM 06/19/20 06/19/20 Rivaroxaban [Xarelto] 10 mg PO DAILY 06/19/20 06/19/20 Spironolactone [Aldactone] 50 mg PO DAILY 06/19/20 06/19/20 Tiotropium [place] [Spiriva] 1 puffs INH DAILY 06/19/20 06/19/20 Nicotine 14 mg Patch [Nicoderm] 1 patch TOP DAILY patch 06/22/20 Pantoprazole [Protonix] 40 mg PO QDAC #40 tablet 06/22/20 guaiFENesin [Mucinex] 600 mg PO BID tablet 06/22/20 - PHYSICAL EXAM AT DISCHARGE General Appearance: positive: No acute distress, Alert Eyes Bilateral: positive: Normal inspection, Conjunctivae nml ENT: positive: ENT inspection nml Neck: positive: Nml inspection Respiratory: positive: No respiratory distress, Other (Diminished bilaterally.) Cardiovascular: positive: Regular rate & rhythm, No murmur. negative: Irregularly irregular, Tachycardia, Systolic murmur Abdomen: positive: Nml bowel sounds, No distention, Tenderness (Mild epigastric tenderness.). negative: Guarding, Rebound Skin: positive: Warm, Dry Extremities: positive: Full ROM, No pedal edema Neurologic/Psychiatric: negative: Disoriented to person, Disoriented to place Physical Exam Other/Comments: Vital Signs - 24 hr 06/21/20 06/21/20 06/21/20 15:15 15:41 20:00 Temperature 36.1 C L Heart Rate 86 86 Heart Rate [ 86 Brachial] Respiratory 16 16 18 Rate Blood Pressure 118/67 [Right Brachial artery] O2 Saturation 94 06/21/20 06/21/20 06/22/20 20:46 23:45 03:44 Temperature 36.3 C L 36.3 C L 36.7 C Heart Rate Heart Rate [ 85 95 74 Brachial] Respiratory 16 20 20 Rate Blood Pressure 133/68 H 112/74 137/72 H [Right Brachial artery] O2 Saturation 93 91 L 96 06/22/20 06/22/20 06/22/20 07:16 09:00 10:43 Temperature 36.2 C L Heart Rate 80 88 Heart Rate [ 78 Brachial] Respiratory 16 20 18 Rate Blood Pressure 140/77 H [Right Brachial artery] O2 Saturation 93 Oxygen O2 Source Nasal cannula Oxygen Flow Rate 2 - LABS Result Diagrams: 06/22/20 04:45 06/22/20 04:45 - DIAGNOSTIC IMAGING Diagnostic Imaging Results: Final report reviewed - FOLLOW UP Follow Up: She was asked to follow-up with her primary care provider in 1 week. She was also encouraged to follow-up with palliative care and pulmonary rehab as these referrals were placed. - TIME SPENT Time Spent in Discharge (Minutes): 35
[2020-06-21] MEDS: MONTELUKAST 10 MG TABLET PO SCH (21:02)
[2020-06-21] MEDS: ACETAMINOPHEN 325 MG TABLET PO PRN (23:38)
[2020-06-22 05:20] LABS: BASOPHILS % (AUTO) 0.3 %; EOSINOPHILS # (AUTO) 0.1 10^3/uL (0.0-0.7); EOSINOPHILS % (AUTO) 0.4 %; HCT - HEMATOCRIT 43.4 % (37.0-47.0); HGB - HEMOGLOBIN 14.1 g/dL (12.0-16.0); LYMPHOCYTES # (AUTO) 2.4 10^3/uL (1.5-3.5); LYMPHOCYTES % (AUTO) 17.9 %; MEAN CORPUSCULAR HGB CONC 32.5 g/dL (32.0-36.0); MEAN CORPUSCULAR VOLUME 104.6 fL (81.0-99.0); MEAN PLATELET VOLUME 10.6 fL (7.9-10.8); MONOCYTES # (AUTO) 1.1 10^3/uL (0.0-1.0); MONOCYTES % (AUTO) 7.9 %; NEUTROPHILS # (AUTO) 9.8 10^3/uL (1.5-6.6); PLT - PLATELET COUNT 338 10^3/uL (130-450); RED BLOOD COUNT 4.15 10^6/uL (4.20-5.40); RED CELL DISTRIBUTION WIDTH 12.5 % (12.0-15.0); WHITE BLOOD COUNT 13.6 x10^3/uL (4.8-10.8)
[2020-06-22 05:28] LABS: CALCIUM 8.6 mg/dL (8.5-10.3); CREATININE 0.4 mg/dL (0.4-1.0); MAGNESIUM 1.9 mg/dL (1.7-2.8); PHOSPHORUS 3.7 mg/dL (2.5-4.6); POTASSIUM 3.8 mmol/L (3.5-5.0)
[2020-06-22] MEDS: LACTULOSE 10 GM /15 ML UDC PO SCH (06:10)
[2020-06-22] MEDS ORDERED: PANTOPRAZOLE 40 MG TABLET PO SCH (07:00)
[2020-06-22] MEDS: BUDESONIDE 0.5 MG/2 ML NEB INH SCH (07:14)
[2020-06-22] MEDS: IPRATROPIUM/ALBUTEROL 3 ML NEB INH SCH ×2 (07:14→10:42)
[2020-06-22] MEDS: FORMOTEROL FUMARATE NEB 20 MCG/2 ML INH SCH (07:14)
[2020-06-22] MEDS: INSULIN ASPART 300 UNIT/3 ML PEN SUBQ SCH (07:59)
[2020-06-22] MEDS: cefTRIAXone 1 GM in SODIUM CHLORIDE 0.9% MINIBAG 100 ML IV SCH (08:43)
[2020-06-22] MEDS: SODIUM CHLORIDE FLUSH 0.9% 10 ML SYRINGE IVP SCH (08:44)
[2020-06-22] MEDS: predniSONE 20 MG TABLET PO SCH (08:45)
[2020-06-22] MEDS: RIVAROXABAN 10 MG TABLET PO SCH (08:47)
[2020-06-22] MEDS: FOLIC ACID 1 MG TABLET PO SCH (08:47)
[2020-06-22] MEDS: FUROSEMIDE 40 MG TABLET PO SCH (08:47)
[2020-06-22] MEDS: guaiFENesin 600 MG TABLET PO SCH (08:47)
[2020-06-22] MEDS: NICOTINE 14 MG PATCH TOP SCH (08:48)
[2020-06-22] MEDS: PROPRANOLOL 10 MG TABLET PO SCH (08:48)
[2020-06-22] MEDS: CHLORHEXIDINE GLUCONATE 15 ML UDC PO SCH (08:51)
[2020-06-22] MEDS: SPIRONOLACTONE 25 MG TABLET PO SCH (10:26)
[2020-06-22] MEDS: THIAMINE 100 MG TABLET PO SCH (10:27)
[2020-06-22 13:05] VITALS: BP 140/77
== END 2020-06-22 12:20 | disposition home or self-care (01) | DRG 189 ==
LOC: ED 16:57 → ICU 18:33 → MS2 06-20 15:19
PROVIDERS: ADMIT Internal Medicine; ATTEND Internal Medicine
DX: J96.22 Acute and chronic respiratory failure with hypercapnia (principal); J96.21 Acute and chronic respiratory failure with hypoxia; F17.210 Nicotine dependence, cigarettes, uncomplicated; Z99.81 Dependence on supplemental oxygen; J43.9 Emphysema, unspecified; Z20.822 Contact with and (suspected) exposure to COVID-19; I11.0 Hypertensive heart disease with heart failure; I50.9 Heart failure, unspecified; I25.2 Old myocardial infarction; K70.31 Alcoholic cirrhosis of liver with ascites; F10.20 Alcohol dependence, uncomplicated; Z86.711 Personal history of pulmonary embolism; Z79.01 Long term (current) use of anticoagulants; K21.9 Gastro-esophageal reflux disease without esophagitis; M54.16 Radiculopathy, lumbar region; M21.372 Foot drop, left foot; M21.371 Foot drop, right foot; I87.8 Other specified disorders of veins; Z66 Do not resuscitate; B35.1 Tinea unguium; M94.0 Chondrocostal junction syndrome [Tietze]
CPT/HCPCS: 36415; 36600; 71045; 80048; 80053; 82803; 83735; 84100; 84484; 85025; 87150; 87631; 93005; 94640; 94660; 94761; 99285; 99291; A6250; A9270; J7512; J7626; 0202U

== ENCOUNTER 2020-07-27 08:14 | Inpatient (IN) | payer MEDICARE, OTHER ==
[2020-07-27 08:49] LABS: BASOPHILS # (AUTO) 0.1 10^3/uL (0.0-0.1); BASOPHILS % (AUTO) 0.4 %; EOSINOPHILS # (AUTO) 0.1 10^3/uL (0.0-0.7); EOSINOPHILS % (AUTO) 0.4 %; HCT - HEMATOCRIT 46.8 % (37.0-47.0); HGB - HEMOGLOBIN 16.8 g/dL (12.0-16.0); LYMPHOCYTES # (AUTO) 1.1 10^3/uL (1.5-3.5); LYMPHOCYTES % (AUTO) 7.9 %; MEAN CORPUSCULAR HEMOGLOBIN 34.1 pg (27.0-31.0); MEAN CORPUSCULAR HGB CONC 35.9 g/dL (32.0-36.0); MEAN CORPUSCULAR VOLUME 94.9 fL (81.0-99.0); MEAN PLATELET VOLUME 9.8 fL (7.9-10.8); MONOCYTES # (AUTO) 1.4 10^3/uL (0.0-1.0); MONOCYTES % (AUTO) 9.7 %; NEUTROPHILS # (AUTO) 11.5 10^3/uL (1.5-6.6); NEUTROPHILS % (AUTO) 80.9 %; PLT - PLATELET COUNT 233 10^3/uL (130-450); RED BLOOD COUNT 4.93 10^6/uL (4.20-5.40); RED CELL DISTRIBUTION WIDTH 11.3 % (12.0-15.0); WHITE BLOOD COUNT 14.3 x10^3/uL (4.8-10.8)
[2020-07-27 09:06] LABS: ALBUMIN/GLOBULIN RATIO 1.4 (1.0-2.2); ALKALINE PHOSPHATASE 75 IU/L (42-121); ALT ALANINE AMINOTRANSFERASE 27 IU/L (10-60); AST ASPARTATE AMINOTRANSFERASE 38 IU/L (10-42); BILIRUBIN,TOTAL 1.2 mg/dL (0.2-1.0); BUN - BLOOD UREA NITROGEN 12 mg/dL (6-20); CALCIUM 9.6 mg/dL (8.5-10.3); CREATININE 0.3 mg/dL (0.4-1.0); GFR - MDRD 219 (>89); GLUCOSE 107 mg/dL (70-100); LIPASE 48 U/L (22-51); POTASSIUM 2.6 mmol/L (3.5-5.0); SODIUM 121 mmol/L (135-145); TOTAL PROTEIN 6.9 g/dL (6.7-8.2)
[2020-07-27 09:09] LABS: CHLORIDE 61 mmol/L (101-111)
[2020-07-27 09:12] LABS: CARBON DIOXIDE - CO2 > 45 mmol/L (21-32)
[2020-07-27] MEDS ORDERED: methylPREDNISolone SUCCINATE 125 MG/2 ML VIAL IVP STA (09:15)
[2020-07-27] MEDS ORDERED: IPRATROPIUM/ALBUTEROL 3 ML NEB INH STA ×2 (09:15→10:52)
--- NOTE | 2020-07-27 09:29 | XRAY Report ---
PROCEDURE: Chest 1 View X-Ray INDICATIONS: Chest pain TECHNIQUE: One view of the chest was acquired. COMPARISON: 1948 FINDINGS: Surgical changes and devices: Left breast clips. Lungs and pleura: No pleural effusions or pneumothorax. Lungs are clear. Mediastinum: Mediastinal contours appear normal. Heart size is normal. Bones and chest wall: No suspicious bony lesions. Overlying soft tissues appear unremarkable. IMPRESSION: No evidence acute pulmonary process. Reviewed by: Silvestre Farris MD on 07/27/2020 8:27 AM LORIE Approved by: Silvestre Farris MD on 07/27/2020 8:27 AM LORIE Station ID: [id number]
[2020-07-27 10:21] LABS: B. PARAPERTUSSIS- RESP PCR PAN NOT DETECTED; B. PERTUSSIS- RESP PCR PANEL NOT DETECTED; C. PNEUMONIAE- RESP PCR PANEL NOT DETECTED; CORONAVIRUS 229E-RESP PCR NOT DETECTED; CORONAVIRUS HKU1-RESP PCR NOT DETECTED; CORONAVIRUS NL63-RESP PCR NOT DETECTED; CORONAVIRUS OC43-RESP PCR NOT DETECTED; HUMAN METAPNEUMOVIRUS NOT DETECTED; INFLUENZA A- RESP PCR PANEL NOT DETECTED; INFLUENZA B - RESP PCR PANEL NOT DETECTED; M. PNEUMONIAE- RESP PCR PANEL NOT DETECTED; PARAINFLUENZA VIRUS 1 NOT DETECTED; PARAINFLUENZA VIRUS 2 NOT DETECTED; PARAINFLUENZA VIRUS 3 NOT DETECTED; PARAINFLUENZA VIRUS 4 NOT DETECTED; RHINOVIRUS/ENTEROVIRUS NOT DETECTED; RSV- RESP PCR PANEL NOT DETECTED; SARS-CoV-2 -RESP PCR PANEL NOT DETECTED
[2020-07-27 10:36] LABS: VBG BASE EXCESS 16.4 mmol/L (-2 - +2); VBG HCO3 42.1 mmol/L (23-28); VBG OXYGEN SATURATION 84.4 % (60-80); VBG PCO2 50.8 mmHg (41-51); VBG PH 7.536 (7.31-7.41); VBG PO2 43.3 mmHg (25-47); VBG TOTAL CO2 43.6 mmol/L (24-29)
[2020-07-27] MEDS ORDERED: SODIUM CHLORIDE 0.9% 1,000 ML IV STA (10:53)
[2020-07-27] MEDS ORDERED: IOVERSOL 320 100 ML VIAL IVP ONE ×2 (10:59→11:40)
[2020-07-27 11:26] LABS: CREATININE 0.3 mg/dL (0.4-1.0)
[2020-07-27 11:35] LABS: CALCIUM 9.7 mg/dL (8.5-10.3); POTASSIUM 2.8 mmol/L (3.5-5.0)
--- NOTE | 2020-07-27 11:56 | CT Report ---
PROCEDURE: ANGIO CHEST W/WO INDICATIONS: shortness of breath CONTRAST: IV CONTRAST: Optiray 320 ml: 80 PO CONTRAST: *NO PO CONTRAST TECHNIQUE: After the administration of intravenous contrast, 2 mm thick sections acquired from the pulmonary api espinoza to the posterior costophrenic angles. 3-dimensional maximum intensity projection (MIP) coronal a nd sagittal reformats were then acquired through the thorax. For radiation dose reduction, the follow ing was used: automated exposure control, adjustment of mA and/or kV according to patient size. COMPARISON: 09/20/2018, at which time, there are multiple pulmonary emboli. FINDINGS: Image quality: Excellent. Pulmonary arteries: Pulmonary arteries are normal in size, and demonstrate no intraluminal filling d efects to suggest central pulmonary embolism. Lungs and pleura: Mild centrilobular emphysema. Lungs are clear. No pleural effusions or pneumothor ax. Central and peripheral airways are patent. Mediastinum: Heart size is normal, without pericardial effusion. At least moderate coronary artery c alcifications. No mediastinal or hilar adenopathy. Thoracic aorta is normal in caliber and enhancem ent. Esophagus is normal in caliber, without hiatal hernia. Bones and chest wall: No suspicious bony lesions. Ribs and thoracic spine appear intact throughout. No axillary or supraclavicular adenopathy. Again noted is a densely peripherally calcified left th yroid nodule measuring approximately 1.1 cm diameter. Abdomen: Previous large ascites has resolved. Probable small bilateral adrenal adenomas. Dense abdom inal aortic calcification. IMPRESSION: 1. No evidence of acute pulmonary emboli. 2. Mild centrilobular emphysema. 3. Coronary artery disease. 4. No evidence acute pulmonary process. 5. Stable, likely benign densely calcified 1.1 cm left thyroid nodule. 6. Resolution of previous large ascites. CLINICAL RECOMMENDATION STATEMENTS: In patients <35 years with an ITN detected on CT, MRI, or extrathyroidal ultrasound, the Committee re commends further evaluation with dedicated thyroid ultrasound if the nodule is ?1 cm and has no suspi cious imaging features, and if the patient has normal life expectancy. In patients ?35 years with an ITN detected on CT, MRI, or extrathyroidal ultrasound, the Committee re commends further evaluation with dedicated thyroid ultrasound if the nodule is ?1.5 cm and has no yrn picious imaging features, and if the patient has normal life expectancy. (ACR, 2014) Reviewed by: Silvestre Farris MD on 07/27/2020 10:54 AM LORIE Approved by: Silvestre Farris MD on 07/27/2020 10:54 AM LORIE Station ID: [id number]
[2020-07-27] MEDS ORDERED: POTASSIUM CHLOR 10 MEQ/100 ML 10 MEQ/100 ML BAG IV ONE (12:53)
[2020-07-27] MEDS ORDERED: FOLIC ACID INJ 1 MG, THIAMINE INJ 100 MG, MAGNESIUM SULFATE 2 GM, MULTIVITAMIN 10 ML in... IV STA ×5 (12:53)
--- NOTE | 2020-07-27 13:14 | ED Physician Documentation ---
History of Present Illness - Stated complaint Stated Complaint: SOA - Chief complaint Chief Complaint: Resp - History obtained from History obtained from: Patient - Additonal information Additional information: 70-year-old woman with past medical history of alcoholic cirrhosis, COPD on home 1 L of oxygen routinely, high blood pressure, recent admission for COPD exacerbation, presents with shortness of breath, chest tightness and palpitations for the past 2 days, progressively worsening associated with cough productive of white sputum. Patient also has been feeling really weak and says that she is not able to keep much down. She is actively drinking still. Review of Systems Ten Systems: 10 systems reviewed and negative Constitutional: reports: Myalgias, Fatigue. denies: Fever, Chills Cardiac: reports: Chest pain / pressure, Palpitations Respiratory: reports: Dyspnea, Cough PD PAST MEDICAL HISTORY - Past Medical History Past Medical History: Yes Cardiovascular: Hypertension, High cholesterol, Deep vein thrombosis, Pulmonary embolism, Murmur, Other Respiratory: COPD, Emphysema Neuro: None, Other Endocrine/Autoimmune: None GI: Cirrhosis LOADING CHECKER: Breast cancer, Other : Incontinence HEENT: None Psych: Depression, Anxiety Musculoskeletal: Osteoarthritis, Osteoporosis, Chronic back pain Derm: None - Past Surgical History Past Surgical History: Yes General: Colonoscopy, EGD /LOADING CHECKER: Other - Present Medications Home Medications: Ambulatory Orders Medication Instructions Recorded Confirmed Propranolol [Inderal] 10 mg PO BID 09/21/18 07/27/20 Albuterol Sulfate [Proair Hfa 2 puffs INH Q4H PRN 05/13/20 07/27/20 Inhaler] Furosemide [Lasix] 40 mg PO DAILY 06/19/20 07/27/20 Montelukast [Singulair] 10 mg PO QPM 06/19/20 07/27/20 Rivaroxaban [Xarelto] 10 mg PO DAILY 06/19/20 07/27/20 Spironolactone [Aldactone] 50 mg PO DAILY 06/19/20 07/27/20 Tiotropium [place] [Spiriva] 1 puffs INH DAILY 06/19/20 07/27/20 Nicotine 14 mg Patch [Nicoderm] 1 patch TOP DAILY patch 06/22/20 07/27/20 Pantoprazole [Protonix] 40 mg PO QDAC #40 tablet 06/22/20 07/27/20 guaiFENesin [Mucinex] 600 mg PO BID tablet 06/22/20 07/27/20 - Allergies Allergies/Adverse Reactions: Allergies Allergy/AdvReac Type Severity Reaction Status Date / Time Latex, Natural Rubber Allergy Rash Verified 07/27/20 08:34 lisinopril Allergy Respiratory Verified 07/27/20 08:34 - Social History Does the pt smoke?: Yes Smoking Status: Current every day smoker Does the pt drink ETOH?: Yes Does the pt have substance abuse?: No - Immunizations Immunizations are current?: Yes - POLST Patient has POLST: No POLST Status: DNR (Please see advance care planning discussion) PD ED PE NORMAL - Vitals Vital signs reviewed: Yes - General General: Alert and oriented X 3 - HEENT HEENT: Atraumatic, PERRL, EOMI - Neck Neck: Supple, no meningeal sign - Cardiac Cardiac: Other (Tachycardic rate, regular rhythm) - Respiratory Respiratory: Other (bilateral wheezing and rhonchi) - Abdomen Abdomen: Non tender, Non distended - Back Back: No spinal TTP - Derm Derm: Normal color - Extremities Extremities: No deformity - Neuro Neuro: Alert and oriented X 3 - Psych Psych: Normal mood, Normal affect Results - Vitals Vitals: Vital Signs - 24 hr 07/27/20 07/27/20 07/27/20 08:26 09:13 09:30 Temperature 36.2 C L Heart Rate 116 H 112 H 101 H Respiratory 16 25 H 23 Rate Blood Pressure 167/110 H 126/76 O2 Saturation 88 L 93 07/27/20 07/27/20 07/27/20 10:56 11:04 13:00 Temperature Heart Rate 97 96 100 Respiratory 20 38 H 18 Rate Blood Pressure 135/46 H 115/100 H O2 Saturation 92 92 Oxygen O2 Source Nasal cannula Oxygen Flow Rate 2 - EKG (time done) 0827 Rate: Rate (enter#) (109) Rhythm: Sinus tachycardia [place]: Normal Intervals: Normal [place] QRS: Normal - Labs Labs: Laboratory Tests 07/27/20 07/27/20 07/27/20 08:42 08:42 08:42 WBC 14.3 H RBC 4.93 Hgb 16.8 H Hct 46.8 MCV 94.9 MCH 34.1 H MCHC 35.9 RDW 11.3 L Plt Count 233 MPV 9.8 Neut # (Auto) 11.5 H Lymph # (Auto) 1.1 L Adams # (Auto) 1.4 H Eos # (Auto) 0.1 Baso # (Auto) 0.1 Absolute Nucleated RBC 0.00 Nucleated RBC % 0.0 D-Dimer VBG pH VBG pCO2 VBG pO2 VBG HCO3 VBG Total CO2 VBG O2 Saturation VBG Base Excess Sodium 121 L Potassium 2.6 L Chloride 61 L* Carbon Dioxide > 45 H* Anion Gap 15.0 H BUN 12 Creatinine 0.3 L Estimated GFR (MDRD) 219 Glucose 107 H Calcium 9.6 Magnesium Total Bilirubin 1.2 H AST 38 ALT 27 Alkaline Phosphatase 75 Troponin I High Sens 7.9 B-Natriuretic Peptide Total Protein 6.9 Albumin 4.0 Globulin 2.9 Albumin/Globulin Ratio 1.4 Lipase 48 Nasal Adenovirus (PCR) Nasal B. parapertussis DNA (PCR) Nasal Coronavir 229E PCR Nasal Coronavir HKU1 PCR Nasal Coronavir NL63 PCR Nasal Coronavir OC43 PCR Nasal Enterovir/Rhinovir PCR Nasal Influenza B PCR Nasal Influenza A PCR Nasal Parainfluen 1 PCR Nasal Parainfluen 2 PCR Nasal Parainfluen 3 PCR Nasal Parainfluen 4 PCR Nasal RSV (PCR) Nasal B.pertussis DNA PCR Nasal C.pneumoniae (PCR) Kaleb Human Metapneumo PCR Nasal M.pneumoniae (PCR) Nasal SARS-CoV-2 (PCR) 07/27/20 07/27/20 07/27/20 08:42 08:42 09:10 WBC RBC Hgb Hct MCV MCH MCHC RDW Plt Count MPV Neut # (Auto) Lymph # (Auto) Adams # (Auto) Eos # (Auto) Baso # (Auto) Absolute Nucleated RBC Nucleated RBC % D-Dimer 512.0 H VBG pH VBG pCO2 VBG pO2 VBG HCO3 VBG Total CO2 VBG O2 Saturation VBG Base Excess Sodium Potassium Chloride Carbon Dioxide Anion Gap BUN Creatinine Estimated GFR (MDRD) Glucose Calcium 9.8 Magnesium 1.9 Total Bilirubin AST ALT Alkaline Phosphatase Troponin I High Sens B-Natriuretic Peptide Total Protein Albumin Globulin Albumin/Globulin Ratio Lipase Nasal Adenovirus (PCR) NOT DETECTED Nasal B. parapertussis DNA (PCR) NOT DETECTED Nasal Coronavir 229E PCR NOT DETECTED Nasal Coronavir HKU1 PCR NOT DETECTED Nasal Coronavir NL63 PCR NOT DETECTED Nasal Coronavir OC43 PCR NOT DETECTED Nasal Enterovir/Rhinovir PCR NOT DETECTED Nasal Influenza B PCR NOT DETECTED Nasal Influenza A PCR NOT DETECTED Nasal Parainfluen 1 PCR NOT DETECTED Nasal Parainfluen 2 PCR NOT DETECTED Nasal Parainfluen 3 PCR NOT DETECTED Nasal Parainfluen 4 PCR NOT DETECTED Nasal RSV (PCR) NOT DETECTED Nasal B.pertussis DNA PCR NOT DETECTED Nasal C.pneumoniae (PCR) NOT DETECTED Kaleb Human Metapneumo PCR NOT DETECTED Nasal M.pneumoniae (PCR) NOT DETECTED Nasal SARS-CoV-2 (PCR) NOT DETECTED 07/27/20 07/27/20 07/27/20 10:06 10:06 11:07 WBC RBC Hgb Hct MCV MCH MCHC RDW Plt Count MPV Neut # (Auto) Lymph # (Auto) Adams # (Auto) Eos # (Auto) Baso # (Auto) Absolute Nucleated RBC Nucleated RBC % D-Dimer VBG pH 7.536 H VBG pCO2 50.8 VBG pO2 43.3 VBG HCO3 42.1 H VBG Total CO2 43.6 H VBG O2 Saturation 84.4 H VBG Base Excess 16.4 H Sodium 121 L Potassium 2.8 L Chloride 63 L* Carbon Dioxide 41 H* Anion Gap 17.0 H BUN 11 Creatinine 0.3 L Estimated GFR (MDRD) 219 Glucose 116 H Calcium 9.7 Magnesium Total Bilirubin AST ALT Alkaline Phosphatase Troponin I High Sens B-Natriuretic Peptide 218 H Total Protein Albumin Globulin Albumin/Globulin Ratio Lipase Nasal Adenovirus (PCR) Nasal B. parapertussis DNA (PCR) Nasal Coronavir 229E PCR Nasal Coronavir HKU1 PCR Nasal Coronavir NL63 PCR Nasal Coronavir OC43 PCR Nasal Enterovir/Rhinovir PCR Nasal Influenza B PCR Nasal Influenza A PCR Nasal Parainfluen 1 PCR Nasal Parainfluen 2 PCR Nasal Parainfluen 3 PCR Nasal Parainfluen 4 PCR Nasal RSV (PCR) Nasal B.pertussis DNA PCR Nasal C.pneumoniae (PCR) Kaleb Human Metapneumo PCR Nasal M.pneumoniae (PCR) Nasal SARS-CoV-2 (PCR) PD MEDICAL DECISION MAKING - ED course ED course: 70-year-old woman presented with acute malnutrition, also with mild COPD exacerbation, improved in the emergency department. Patient will be admitted for electrolyte management given her hyponatremia. Departure - Departure Disposition: 66 [facility] DC/Xfer Clinical Impression: Hyponatremia, Hypercalcemia, Weakness, Severe malnutrition Discharge Date/Time: 07/27/20 15:20
[2020-07-27 13:18] LABS: CALCIUM 9.8 mg/dL (8.5-10.3); MAGNESIUM 1.9 mg/dL (1.7-2.8)
[2020-07-27] MEDS ORDERED: ONDANSETRON 4 MG/2 ML VIAL IVP PRN (14:17)
[2020-07-27] MEDS ORDERED: IPRATROPIUM/ALBUTEROL 3 ML NEB INH PRN (14:24)
[2020-07-27] MEDS ORDERED: SODIUM CHLORIDE 0.9% 1,000 ML IV SCH (15:00)
[2020-07-27] MEDS: NICOTINE 14 MG PATCH TOP SCH (16:00)
[2020-07-27] MEDS: POTASSIUM CHLOR 10 MEQ/100 ML 10 MEQ/100 ML BAG IV SCH ×6 (16:24→23:59)
[2020-07-27] MEDS ORDERED: LORazepam 2 MG/ML VIAL IVP PRN (16:49)
[2020-07-27] MEDS ORDERED: LEVALBUTEROL 1.25 MG/3 ML NEB INH SCH (17:00)
[2020-07-27] MEDS: SODIUM CHLORIDE FLUSH 0.9% 10 ML SYRINGE IVP SCH (17:24)
[2020-07-27] MEDS: BUDESONIDE 0.5 MG/2 ML NEB INH SCH (20:52)
[2020-07-27] MEDS: LEVALBUTEROL 1.25 MG/3 ML NEB INH SCH (20:53)
[2020-07-27 21:19] LABS: CALCIUM 8.4 mg/dL (8.5-10.3); CREATININE 0.5 mg/dL (0.4-1.0); POTASSIUM 2.9 mmol/L (3.5-5.0)
[2020-07-27] MEDS: MONTELUKAST 10 MG TABLET PO SCH (21:52)
[2020-07-27] MEDS: methylPREDNISolone SUCCINATE 40 MG/ML VIAL IVP SCH (21:53)
[2020-07-27] MEDS: PROPRANOLOL 10 MG TABLET PO SCH (21:53)
[2020-07-27] MEDS: guaiFENesin 600 MG TABLET PO SCH (21:53)
--- NOTE | 2020-07-27 22:19 | HISTORY & PHYSICAL EXAMINATION ---
Chief Complaint - Chief Complaint Chief Complaint: dyspnea, cough History of Present Illness - Admitted From Admitted From:: [facility] ED - History Obtained From Records Reviewed: yes History obtained from: patient - History of Present Illness HPI Comment/Other: Patient is a 70-year-old female with medical history significant for Hypertension, hyperlipidemia, alcohol abuse, DVT/PE on Xarelto, alcoholic cirrhosis and COPD on 1 L of oxygen at baseline who presented to the ED with complaint of worsening dyspnea and productive cough of whitish sputum. She always has some baseline dyspnea but states that it became unbearable today. Also she has been feeling very weak because she has been unable to keep anything down. However it was reported that she has been consuming alcohol despite just being discharged from a rehab program on Tuesday07/21/20. On presentation she was tachycardic with a heart rate of 116 and oxygen saturation 88%. She was given a breathing treatment in the ED that significantly improved her work of breathing. Further work-up included BMP which showed a sodium level of 121 and potassium of 2.6. She was presented for admission for further treatment. At bedside she denied chest pain, nausea, vomiting or fever. She reported mild abdominal pain associated with eating and chills. History - Past Medical History Cardiovascular: reports: Hypertension, High cholesterol, Deep vein thrombosis, Pulmonary embolism, Murmur, Other Respiratory: reports: COPD, Emphysema Neuro: reports: None, Other Endocrine/Autoimmune: reports: None GI: reports: Cirrhosis [employer]: reports: Breast cancer, Other : reports: Incontinence HEENT: reports: None Psych: reports: Depression, Anxiety Musculoskeletal: reports: Osteoarthritis, Osteoporosis, Chronic back pain Derm: reports: None MRSA Hx?: No - Past Surgical History General: reports: Colonoscopy, EGD /[employer]: reports: Other - Family & Social History Family History Comment/Other: Father had an unspecified cancer. He from metastasis to the brain in his mid 60s. Mother had respiratory problems from . She in 2004 from complications of respiratory disease. 1 sister is healthy and lives in [place]. 3 kids are healthy and 1 lives w her and 2 live nearby. But they can't help. Only the daughter that lives w her helps. Living Situation: With spouse/s.o., With family Social History Notes: Started smoking age 11, 1 pack/day. Still ongoing. Started drinking in her 20s. Still ongoing. 4 bottles/day of 187 ml. Does have a history of withdrawals, shakiness, tremulousness but does not recall withdrawal seizures.No history of recreational substance abuse. - Substance History Use: Uses substance without health or social issues: Tobacco - POLST Patient has POLST: No POLST Status: DNR (Please see advance care planning discussion) Meds/Allgy - Home Medications Home Medications: Ambulatory Orders Medication Instructions Recorded Confirmed Propranolol [Inderal] 10 mg PO BID 09/21/18 07/27/20 Albuterol Sulfate [Proair Hfa 2 puffs INH Q4H PRN 05/13/20 07/27/20 Inhaler] Furosemide [Lasix] 40 mg PO DAILY 06/19/20 07/27/20 Montelukast [Singulair] 10 mg PO QPM 06/19/20 07/27/20 Rivaroxaban [Xarelto] 10 mg PO DAILY 06/19/20 07/27/20 Spironolactone [Aldactone] 50 mg PO DAILY 06/19/20 07/27/20 Tiotropium [place] [Spiriva] 1 puffs INH DAILY 06/19/20 07/27/20 Nicotine 14 mg Patch [Nicoderm] 1 patch TOP DAILY patch 06/22/20 07/27/20 Pantoprazole [Protonix] 40 mg PO QDAC #40 tablet 06/22/20 07/27/20 guaiFENesin [Mucinex] 600 mg PO BID tablet 06/22/20 07/27/20 - Allergies Allergies/Adverse Reactions: Allergies Allergy/AdvReac Type Severity Reaction Status Date / Time Latex, Natural Rubber Allergy Rash Verified 07/27/20 08:34 lisinopril Allergy Respiratory Verified 07/27/20 08:34 Review of Systems - Constitutional Constitutional: reports: Chills, Poor appetite. denies: Fever - Eyes Eyes: denies: Pain - Ears, Nose & Throat Ears, Nose & Throat: denies: Ear pain - Cardiovascular Cariovascular: denies: Irregular heart rate, Chest pain, Edema, Lightheadedness, Syncope - Respiratory Respiratory: reports: Cough, Sputum production, Wheezing, SOB at rest, SOB with exertion - Gastrointestinal Gastrointestinal: denies: Abdominal pain, Abdominal distention, Nausea, Vomiting - Genitourinary Genitourinary: denies: Dysuria, Frequency, Urgency, Hematuria - Musculoskeletal Musculoskeletal: denies: Muscle pain, Back pain, Muscle aches - Integumentary Integumentary: denies: Rash, Pruritis - Neurological Neurological: denies: General weakness, Focal weakness, Headache - Psychiatric Psychiatric: denies: Depression, Anxiety - Endocrine Endocrine: denies: Polyuria, Polydypsia - Hematologic/Lymphatic Hematologic/Lymphatic: reports: Bruising. denies: Anemia Prior Level of Functionality: She is independent of activities of daily living Exam - Vital Signs Vital Signs: Vital Signs x48h Temp Pulse Pulse Resp BP BP Pulse Ox 07/27/20 18:44 36.4 C L 100 22 124/55 L 99 07/27/20 16:23 36.6 C 89 20 114/55 L 94 07/27/20 15:27 36.4 C L 94 20 101/83 H 98 07/27/20 14:58 87 18 106/54 L 93 - Physical Exam General Appearance: positive: No acute distress, Alert Eyes Bilateral: positive: PERRL, EOMI ENT: positive: Dry mucous membranes Neck: positive: No JVD, Trachea midline Respiratory: positive: Chest non-tender, Other (diminished breath sounds) Cardiovascular: positive: Regular rate & rhythm, No murmur Abdomen: positive: Non-tender, No distention. negative: Guarding, Rebound Back: positive: Nml inspection Skin: positive: No rash, Warm, Dry, Other (bruised right leg) Extremities: positive: Non-tender, Full ROM, No pedal edema Neurologic/Psychiatric: positive: Oriented x3, Mood/affect nml Conclusion/Plan - Problem List (1) COPD exacerbation Conclusion/Plan: On supplemental oxygen with an oxygen saturation goal between 88 and 92%. Solu-Medrol 80 mg IV 3 times daily Budesonide 0.5 mg inhalation twice daily Xopenex 1.25 mg 4 times daily Montelukast 10 mg p.o. every afternoon. DuoNeb every 4 hours as needed. (2) Hyponatremia Conclusion/Plan: Possibly hypovolemic hyponatremia. Patient was given a liter bolus of normal saline in the ED. Sodium level improved from 121-129. Patient currently receiving a banana bag. Will Recheck with a.m. labs. (3) Hypokalemia Conclusion/Plan: Initial potassium was 2.6. This is currently being replaced. We will recheck with a.m. labs. Magnesium was 1.9 (4) Cirrhosis with alcoholism Conclusion/Plan: Patient was recently in a rehab program and was discharged on 07/21/20. However the patient went back to drinking. CIWA protocol initiated. Multivitamins IV daily. Also receiving folic acid. She is on spironolactone. (5) GERD (gastroesophageal reflux disease) Conclusion/Plan: Protonix 40 mg p.o. daily (6) Hypertension Conclusion/Plan: On propanolol 10 mg p.o. twice daily Spironolactone 50 mg p.o. daily Qualifiers: Hypertension type: essential hypertension Qualified Code(s): I10 - Essential (primary) hypertension (7) History of pulmonary embolism Conclusion/Plan: On Xarelto 10 mg p.o. daily (8) Leukocytosis Conclusion/Plan: Likely reactive. Will monitor. - Lab Results Fish Bones: 07/27/20 08:42 07/27/20 20:50 Core Measures - Anticipated LOS I expect patient to be DC'd or transferred within 96 hours.: Yes - DVT/VTE - Prophylaxis VTE/DVT Device ordered at admit?: Yes VTE/DVT Prophylaxis med ordered at admit?: Yes
[2020-07-27] MEDS: SODIUM CHLORIDE 0.9% 1,000 ML IV SCH (23:59)
[2020-07-28] MEDS: ACETAMINOPHEN 325 MG TABLET PO PRN ×2 (00:59→10:55)
[2020-07-28] MEDS: SODIUM CHLORIDE FLUSH 0.9% 10 ML SYRINGE IVP SCH ×3 (01:00→16:29)
[2020-07-28] MEDS: POTASSIUM CHLOR 10 MEQ/100 ML 10 MEQ/100 ML BAG IV SCH ×2 (01:35→03:01)
[2020-07-28] MEDS: BENZOCAINE/MENTHOL LOZENGE MM PRN ×3 (03:01→13:48)
[2020-07-28] MEDS: methylPREDNISolone SUCCINATE 40 MG/ML VIAL IVP SCH ×3 (06:00→21:13)
[2020-07-28] MEDS: PANTOPRAZOLE 40 MG TABLET PO SCH (06:05)
[2020-07-28 06:19] LABS: BASOPHILS % (AUTO) 0.2 %; HCT - HEMATOCRIT 40.8 % (37.0-47.0); LYMPHOCYTES # (AUTO) 0.5 10^3/uL (1.5-3.5); LYMPHOCYTES % (AUTO) 2.4 %; MEAN CORPUSCULAR HEMOGLOBIN 33.7 pg (27.0-31.0); MEAN CORPUSCULAR HGB CONC 34.3 g/dL (32.0-36.0); MEAN CORPUSCULAR VOLUME 98.1 fL (81.0-99.0); MONOCYTES # (AUTO) 0.8 10^3/uL (0.0-1.0); MONOCYTES % (AUTO) 3.9 %; NEUTROPHILS # (AUTO) 18.3 10^3/uL (1.5-6.6); NEUTROPHILS % (AUTO) 92.8 %; PLT - PLATELET COUNT 207 10^3/uL (130-450); RED BLOOD COUNT 4.16 10^6/uL (4.20-5.40); RED CELL DISTRIBUTION WIDTH 11.8 % (12.0-15.0); WHITE BLOOD COUNT 19.7 x10^3/uL (4.8-10.8)
[2020-07-28 06:28] LABS: CALCIUM 8.5 mg/dL (8.5-10.3); CREATININE 0.3 mg/dL (0.4-1.0); POTASSIUM 3.6 mmol/L (3.5-5.0)
[2020-07-28] MEDS: BUDESONIDE 0.5 MG/2 ML NEB INH SCH ×2 (07:23→18:26)
[2020-07-28] MEDS: LEVALBUTEROL 1.25 MG/3 ML NEB INH SCH ×4 (07:24→18:26)
[2020-07-28] MEDS ORDERED: MULTIVITAMIN 10 ML, FOLIC ACID INJ 1 MG, THIAMINE INJ 100 MG, MAGNESIUM SULFATE 2 GM in... IV SCH ×5 (09:00)
[2020-07-28] MEDS: PROPRANOLOL 10 MG TABLET PO SCH ×2 (09:15→21:12)
[2020-07-28] MEDS: guaiFENesin 600 MG TABLET PO SCH ×2 (09:15→21:12)
[2020-07-28] MEDS: RIVAROXABAN 10 MG TABLET PO SCH (09:16)
[2020-07-28] MEDS: SPIRONOLACTONE 25 MG TABLET PO SCH (09:16)
[2020-07-28] MEDS ORDERED: levoFLOXacin 250 MG TABLET PO SCH (11:00)
[2020-07-28] MEDS ORDERED: NON FORMULARY MED (Albuterol Sulfate [Proair Hfa Inhaler] 8.5 GM Hfa.Aer.Ad) INH PRN (13:08)
[2020-07-28] MEDS ORDERED: ALBUTEROL NEB 2.5 MG/3 ML INH PRN (13:13)
[2020-07-28] MEDS ORDERED: GLYCERIN ADULT SUPP PR ONE (13:35)
[2020-07-28] MEDS: LACTULOSE 10 GM /15 ML UDC PO SCH ×2 (13:48→21:12)
[2020-07-28] MEDS: ZINC OXIDE 20% OINT 30 GM TUBE TOP PRN (14:16)
[2020-07-28] MEDS: NICOTINE 14 MG PATCH TOP SCH (16:28)
[2020-07-28] MEDS: SODIUM CHLORIDE 0.9% 1,000 ML IV SCH (19:46)
[2020-07-28] MEDS ORDERED: MONTELUKAST 10 MG TABLET PO SCH (21:00)
[2020-07-28] MEDS: MONTELUKAST 10 MG TABLET PO SCH (21:12)
[2020-07-29] MEDS: BENZOCAINE/MENTHOL LOZENGE MM PRN ×4 (00:02→15:35)
[2020-07-29] MEDS: SODIUM CHLORIDE FLUSH 0.9% 10 ML SYRINGE IVP SCH ×4 (00:24→23:48)
[2020-07-29] MEDS: LACTULOSE 10 GM /15 ML UDC PO SCH ×3 (05:28→21:50)
[2020-07-29] MEDS: PANTOPRAZOLE 40 MG TABLET PO SCH (05:30)
[2020-07-29] MEDS: methylPREDNISolone SUCCINATE 40 MG/ML VIAL IVP SCH ×2 (05:31→21:51)
[2020-07-29 05:46] LABS: BASOPHILS % (AUTO) 0.1 %; HCT - HEMATOCRIT 43.2 % (37.0-47.0); HGB - HEMOGLOBIN 14.3 g/dL (12.0-16.0); LYMPHOCYTES % (AUTO) 1.6 %; MEAN CORPUSCULAR HEMOGLOBIN 33.8 pg (27.0-31.0); MEAN CORPUSCULAR HGB CONC 33.1 g/dL (32.0-36.0); MEAN CORPUSCULAR VOLUME 102.1 fL (81.0-99.0); MEAN PLATELET VOLUME 10.2 fL (7.9-10.8); MONOCYTES % (AUTO) 2.7 %; NEUTROPHILS % (AUTO) 94.6 %; PLT - PLATELET COUNT 196 10^3/uL (130-450); RED BLOOD COUNT 4.23 10^6/uL (4.20-5.40); RED CELL DISTRIBUTION WIDTH 11.9 % (12.0-15.0); WHITE BLOOD COUNT 22.7 x10^3/uL (4.8-10.8)
[2020-07-29 05:48] LABS: ABNORMAL LYMPHS % (MANUAL) 0 %; BAND NEUTROPHILS % (MANUAL) 0 %; CALCIUM 8.2 mg/dL (8.5-10.3); CREATININE 0.3 mg/dL (0.4-1.0); POTASSIUM 3.4 mmol/L (3.5-5.0)
[2020-07-29 06:08] LABS: LYMPHOCYTES # (MANUAL) 0.9 10^3/uL (1.5-3.5); LYMPHOCYTES % (MANUAL) 4 %; MONOCYTES # (MANUAL) 0.2 10^3/uL (0.0-1.0); MYELOCYTES % (MANUAL) 1 %; NEUTROPHILS # (MANUAL) 21.3 10^3/uL (1.5-6.6); PLATELET ESTIMATE, MANUAL NORMAL (130-450,000) (NORMAL); PLATELET MORPHOLOGY NORMAL APPEARANCE (NORMAL); RBC MORPHOLOGY (MULTIPLE) NORMAL APPEARANCE (NORMAL); WBC MORPHOLOGY (MULTIPLE) NORMAL APPEARANCE (NORMAL)
[2020-07-29 06:09] LABS: DIFFERENTIAL COMMENT MANUAL DIFFERENTIAL
[2020-07-29] MEDS: LEVALBUTEROL 1.25 MG/3 ML NEB INH SCH ×4 (07:50→21:22)
[2020-07-29] MEDS: BUDESONIDE 0.5 MG/2 ML NEB INH SCH ×2 (07:50→21:22)
[2020-07-29] MEDS: SPIRONOLACTONE 25 MG TABLET PO SCH (08:48)
[2020-07-29] MEDS: guaiFENesin 600 MG TABLET PO SCH ×2 (08:48→21:50)
[2020-07-29] MEDS: PROPRANOLOL 10 MG TABLET PO SCH ×2 (08:48→21:49)
[2020-07-29] MEDS: RIVAROXABAN 10 MG TABLET PO SCH (08:48)
[2020-07-29] MEDS ORDERED: FUROSEMIDE 40 MG TABLET PO SCH (09:00)
--- NOTE | 2020-07-29 09:11 | XRAY Report ---
PROCEDURE: Chest 1 View X-Ray INDICATIONS: SOB TECHNIQUE: One view of the chest was acquired. COMPARISON: 07/27/2020 FINDINGS: Surgical changes and devices: Multiple surgical clips project over the left mid chest. Lungs and pleura: No pleural effusions or pneumothorax. Lungs are clear. Stable appearance of chron ic obstructive pulmonary physiology. Mediastinum: Mediastinal contours appear normal. Heart size is normal. Bones and chest wall: No suspicious bony lesions. Overlying soft tissues appear unremarkable. IMPRESSION: Stable examination of the chest without acute cardiopulmonary abnormalities. Stable findings of pulmo nary emphysema/chronic obstructive pulmonary physiology. Reviewed by: Arik Jimenes MD on 07/29/2020 9:09 AM PDT Approved by: Arik Jimenes MD on 07/29/2020 9:09 AM PDT Station ID: [id number]
[2020-07-29] MEDS: THIAMINE 100 MG TABLET PO SCH (09:14)
[2020-07-29] MEDS: PRENATAL VITAMIN TABLET PO SCH (09:14)
[2020-07-29] MEDS ORDERED: BISACODYL 10 MG SUPP PR ONE (09:54)
[2020-07-29] MEDS: AZITHROMYCIN 250 MG TABLET PO SCH (10:30)
[2020-07-29] MEDS ORDERED: MORPHINE 2 MG/ML CARPUJECT IVP PRN (12:28)
[2020-07-29 13:01] LABS: ABG BASE EXCESS 10.5 mmol/L (-2.0-3.0); ABG HCO3 38.8 mmol/L (22.0-26.0); ABG OXYGEN SATURATION 91 % (94-98); ABG PH 7.38 (7.35-7.45); ABG PO2 59 mmHg (80-100); ALLEN TEST POSITIVE
[2020-07-29 13:04] LABS: ABG PCO2 68 mmHg (34-45); ABG TCO2 40.9 MMOL/L (21.0-29.0)
--- NOTE | 2020-07-29 13:52 | PROVIDER PROGRESS NOTE ---
Assessment/Plan - Problem List (1) Acute on chronic respiratory failure with hypoxia and hypercapnia Assessment/Plan: pt Feel comfortable, She has no acute respiratory distress now. Patient has history of hypercapnia. ABG show patient had normal pH. Patient is alert and orientated +4. Patient is DNR CODE STATUS. We will continue treat underlying COPD exacerbation, Anxiety. Supplemental oxygen as needed. (2) COPD exacerbation Conclusion/Plan: CTA show patient no PE, mild centralobular emphysema. Patient taken 1 L oxygen in the home for her chronic COPD. We will reduce patient Solu-Medrol to 40 3 times daily. Add morphine as needed, Continue INH treatment, Supplemental oxygen as needed. (3) Hyponatremia Na 134 today, Nearly resolved (4) Hypokalemia K is 3.4, replaced (5) Cirrhosis with alcoholism Conclusion/Plan: Patient was recently in a rehab program and was discharged on 07/21/20. However the patient went back to drinking. CIWA protocol initiated. Multivitamins IV initially for pt, switch to PO and B1 (6) GERD (gastroesophageal reflux disease) Conclusion/Plan: Protonix 40 mg p.o. daily (7) Hypertension Conclusion/Plan: stable, continue On propanolol 10 mg p.o. twice daily and Spironolactone (8) History of pulmonary embolism Conclusion/Plan: no PE in CTA. continue On Xarelto 10 mg p.o. daily (9) Leukocytosis Conclusion/Plan: Likely reactive. pt has IV of steroid, Will monitor. - Current Meds Current Meds: Current Medications Generic Name Dose Route Start Last Admin Trade Name Freq PRN Reason Stop Dose Admin Acetaminophen 650 mg 07/28/20 00:29 07/28/20 10:55 Acetaminophen 325 Mg Tablet PO 650 mg Q6HR PRN Administration Pain or Fever > 38C (100.4F) Azithromycin 250 mg 07/29/20 10:20 07/29/20 10:30 Azithromycin 250 Mg Tablet PO 08/02/20 10:19 250 mg DAILY FELIBERTO Administration Budesonide 0.5 mg 07/27/20 19:00 07/29/20 07:50 Budesonide 0.5 Mg/2 Ml Neb INH 0.5 mg RTBID FELIBERTO Administration Guaifenesin 600 mg 07/28/20 21:00 07/29/20 08:48 Guaifenesin 600 Mg Tablet PO 600 mg BID FELIBERTO Administration Lactulose 10 gm 07/28/20 14:00 07/29/20 13:36 Lactulose 10 Gm /15 Ml Udc PO 10 gm TID FELIBERTO Administration Levalbuterol HCl 1.25 mg 07/27/20 19:00 07/29/20 11:10 Levalbuterol 1.25 Mg/3 Ml Neb INH 1.25 mg RTQID FELIBERTO Administration Lorazepam 2 mg 07/27/20 16:49 07/28/20 14:50 Lorazepam 2 Mg/Ml Vial IVP 2 mg Q30M PRN Administration CIWA >8 Protocol Methylprednisolone 60 mg 07/29/20 14:00 07/29/20 13:36 Methylprednisolone Succinate 40 Mg/Ml Vial IVP 60 mg TID FELIBERTO Administration Montelukast Sodium 10 mg 07/27/20 21:00 07/28/20 21:12 Montelukast 10 Mg Tablet PO 10 mg QPM FELIBERTO Administration Morphine Sulfate 2 mg 07/29/20 12:28 07/29/20 13:36 Morphine 2 Mg/Ml Carpuject IVP 2 mg Q8HR PRN Administration Shortness of Air/Wheezing Multi-Ingredient Ointment 1 applic 07/28/20 13:35 07/28/20 14:16 Zinc Oxide 20% Oint 30 Gm Tube TOP 1 applic PRN PRN Administration Skin Care Nicotine 1 patch 07/27/20 16:00 07/28/20 16:28 Nicotine 14 Mg Patch TOP 1 patch Q24H FELIBERTO Administration Pantoprazole Sodium 40 mg 07/28/20 07:00 07/29/20 05:30 Pantoprazole 40 Mg Tablet PO 40 mg QDAC FELIBERTO Administration Multivit/Folic Acid/Iron 1 tab 07/29/20 09:00 07/29/20 09:14 Vitamin Tablet PO 1 tab DAILYWM FELIBERTO Administration Propranolol HCl 10 mg 07/27/20 21:00 07/29/20 08:48 Propranolol 10 Mg Tablet PO 10 mg BID FELIBERTO Administration Rivaroxaban 10 mg 07/28/20 09:00 07/29/20 08:48 Rivaroxaban 10 Mg Tablet PO 10 mg DAILY FELIBERTO Administration Sodium Chloride 10 ml 07/27/20 17:00 07/29/20 08:59 Sodium Chloride Flush 0.9% 10 Ml Syringe IVP 10 ml 0100,0900,1700 FELIBERTO Administration Spironolactone 50 mg 07/28/20 09:00 07/29/20 08:48 Spironolactone 25 Mg Tablet PO 50 mg DAILY FELIBERTO Administration Thiamine HCl 100 mg 07/29/20 09:00 07/29/20 09:14 Thiamine 100 Mg Tablet PO 100 mg DAILY FELIBERTO Administration Throat Lozenges 1 lozenge 07/28/20 02:30 07/29/20 12:17 Benzocaine/Menthol Lozenge MM 1 lozenge Q2HR PRN Administration Throat pain - Lab Result Fish Bone Diagrams: 07/29/20 05:24 07/29/20 05:24 - Additional Planning My Orders: My Active Orders 07/29/20 CUL, RESPIRATORY [RM] Urgent 07/29/20 09:00 Vitamin [Trinatal Rx 1] 1 tab PO DAILYWM Thiamine [Vitamin B-1] 100 mg PO DAILY 07/29/20 10:20 Azithromycin [Zithromax] 250 mg PO DAILY 07/29/20 10:30 Out of bed 3+ hours today [RC] TID 07/29/20 12:25 RT - Obtain Arterial Specimen [RC] .ONCE 07/29/20 12:27 Nebulizer/MDI Tx. [RC] QID Resp Teach Nebulizer/MDI [RC] .ONCE 07/29/20 12:28 Morphine Inj (Carpuject) [Morphine (Carpuject)] 2 mg IVP Q8HR PRN 07/29/20 13:00 Ipratropium [Atrovent] 0.5 mg INH RTQID 07/29/20 14:00 methylPREDNISolone SUCCINATE [SOLU-Medrol (40MG VIAL)] 60 mg IVP TID Subjective - Subjective Patient Reports: Feeling Better Objective Vital Signs: Vital Signs - 24 hr 07/28/20 07/28/20 07/28/20 15:17 16:04 18:27 Temperature 36.2 C L Heart Rate 88 88 Heart Rate [ Brachial] Heart Rate [ 85 Monitoring electrodes] Respiratory 16 16 16 Rate Blood Pressure [Left Brachial artery] Blood Pressure 91/52 L [Right Brachial artery] O2 Saturation 94 07/28/20 07/28/20 07/29/20 21:10 23:36 05:00 Temperature 36.2 C L 36.3 C L 36.2 C L Heart Rate Heart Rate [ 94 90 98 Brachial] Heart Rate [ Monitoring electrodes] Respiratory 20 18 20 Rate Blood Pressure 100/54 L 128/67 [Left Brachial artery] Blood Pressure 116/61 [Right Brachial artery] O2 Saturation 98 92 93 07/29/20 07/29/20 07/29/20 07:50 11:10 11:53 Temperature 36.3 C L 36.3 C L Heart Rate 115 H 104 H Heart Rate [ 105 H 103 H Brachial] Heart Rate [ Monitoring electrodes] Respiratory 20 16 20 Rate Blood Pressure 126/69 125/61 [Left Brachial artery] Blood Pressure [Right Brachial artery] O2 Saturation 93 92 Oxygen O2 Source Nasal cannula Oxygen Flow Rate 2 I&O (Last 24 Hrs): Intake and Output Totals x24h 07/27/20 07/28/20 07/29/20 23:59 23:59 23:59 Intake Total 3463.334 3435.200 1250.83 Output Total 600 1150 1500 Balance 2863.334 2285.200 -249.17 General: Alert, Oriented x3, Cooperative, No acute distress HEENT: Atraumatic Neck: Supple Lymphatic: no adenopathy Neuro: Alert, Non Focal, Oriented Times 3 Cardiovascular: Regular rate, Normal S1, Normal S2 Respiratory: Chest non-tender, No respiratory distress Abdomen: Normal bowel sounds, Soft, No tenderness Extremities: Normal pulses - Results Results: Laboratory Results WBC 22.7 x10^3/uL (4.8-10.8) H 07/29/20 05:24 RBC 4.23 10^6/uL (4.20-5.40) 07/29/20 05:24 Hgb 14.3 g/dL (12.0-16.0) 07/29/20 05:24 Hct 43.2 % (37.0-47.0) 07/29/20 05:24 MCV 102.1 fL (81.0-99.0) H 07/29/20 05:24 MCH 33.8 pg (27.0-31.0) H 07/29/20 05:24 MCHC 33.1 g/dL (32.0-36.0) 07/29/20 05:24 RDW 11.9 % (12.0-15.0) L 07/29/20 05:24 Plt Count 196 10^3/uL (130-450) 07/29/20 05:24 MPV 10.2 fL (7.9-10.8) 07/29/20 05:24 Neut # (Auto) Not Reportable 07/29/20 05:24 Lymph # (Auto) Not Reportable 07/29/20 05:24 Divide # (Auto) Not Reportable 07/29/20 05:24 Eos # (Auto) Not Reportable 07/29/20 05:24 Baso # (Auto) Not Reportable 07/29/20 05:24 Absolute Nucleated RBC Not Reportable 07/29/20 05:24 Total Counted 100 07/29/20 05:24 Band Neuts % (Manual) 0 % (0-10) 07/29/20 05:24 Abnorm Lymph % (Manual) 0 % 07/29/20 05:24 Myelocytes % 1 % (-0) H 07/29/20 05:24 Nucleated RBC % Not Reportable 07/29/20 05:24 Neutrophils # (Manual) 21.3 10^3/uL (1.5-6.6) H 07/29/20 05:24 Lymphocytes # (Manual) 0.9 10^3/uL (1.5-3.5) L 07/29/20 05:24 Monocytes # (Manual) 0.2 10^3/uL (0.0-1.0) 07/29/20 05:24 Eosinophils # (Manual) 0.0 10^3/uL (0-0.7) 07/29/20 05:24 Basophils # (Manual) 0.0 10^3/uL (0-0.1) 07/29/20 05:24 Differential Comment MANUAL DIFFERENTIAL 07/29/20 05:24 WBC Morphology NORMAL APPEARANCE (NORMAL) 07/29/20 05:24 Platelet Estimate NORMAL (130-450,000) (NORMAL) 07/29/20 05:24 Platelet Morphology NORMAL APPEARANCE (NORMAL) 07/29/20 05:24 RBC Morph Micro Appear NORMAL APPEARANCE (NORMAL) 07/29/20 05:24 D-Dimer 512.0 ng/mL (200.0-255.0) H 07/27/20 08:42 Bld Gas Analysis Time 1250 07/29/20 12:50 Sample Site RIGHT RADIAL 07/29/20 12:50 ABG pH 7.38 (7.35-7.45) 07/29/20 12:50 ABG pCO2 68 mmHg (34-45) H* 07/29/20 12:50 ABG pO2 59 mmHg (80-100) L 07/29/20 12:50 ABG HCO3 38.8 mmol/L (22.0-26.0) H 07/29/20 12:50 ABG Total CO2 40.9 MMOL/L (21.0-29.0) H* 07/29/20 12:50 ABG O2 Saturation 91 % (94-98) L 07/29/20 12:50 ABG Base Excess 10.5 mmol/L (-2.0-3.0) H 07/29/20 12:50 Lance Test POSITIVE 07/29/20 12:50 VBG pH 7.536 (7.31-7.41) H 07/27/20 10:06 VBG pCO2 50.8 mmHg (41-51) 07/27/20 10:06 VBG pO2 43.3 mmHg (25-47) 07/27/20 10:06 VBG HCO3 42.1 mmol/L (23-28) H 07/27/20 10:06 VBG Total CO2 43.6 mmol/L (24-29) H 07/27/20 10:06 VBG O2 Saturation 84.4 % (60-80) H 07/27/20 10:06 VBG Base Excess 16.4 mmol/L (-2 - +2) H 07/27/20 10:06 O2 Delivery Device NASAL CANNULA 07/29/20 12:50 O2 Liters/Min 2.00 LPM 07/29/20 12:50 Sodium 134 mmol/L (135-145) L 07/29/20 05:24 Potassium 3.4 mmol/L (3.5-5.0) L 07/29/20 05:24 Chloride 94 mmol/L (101-111) L 07/29/20 05:24 Carbon Dioxide 34 mmol/L (21-32) H 07/29/20 05:24 Anion Gap 6.0 (6-13) 07/29/20 05:24 BUN 10 mg/dL (6-20) 07/29/20 05:24 Creatinine 0.3 mg/dL (0.4-1.0) L 07/29/20 05:24 Estimated GFR (MDRD) 219 (>89) 07/29/20 05:24 Glucose 132 mg/dL (70-100) H 07/29/20 05:24 Calcium 8.2 mg/dL (8.5-10.3) L 07/29/20 05:24 Magnesium 1.9 mg/dL (1.7-2.8) 07/27/20 08:42 Total Bilirubin 1.2 mg/dL (0.2-1.0) H 07/27/20 08:42 AST 38 IU/L (10-42) 07/27/20 08:42 ALT 27 IU/L (10-60) 07/27/20 08:42 Alkaline Phosphatase 75 IU/L (42-121) 07/27/20 08:42 Troponin I High Sens 7.7 ng/L (2.3-14.8) 07/29/20 09:41 B-Natriuretic Peptide 218 pg/mL (5-100) H 07/27/20 10:06 Total Protein 6.9 g/dL (6.7-8.2) 07/27/20 08:42 Albumin 4.0 g/dL (3.2-5.5) 07/27/20 08:42 Globulin 2.9 g/dL (2.1-4.2) 07/27/20 08:42 Albumin/Globulin Ratio 1.4 (1.0-2.2) 07/27/20 08:42 Lipase 48 U/L (22-51) 07/27/20 08:42 Nasal Adenovirus (PCR) NOT DETECTED 07/27/20 09:10 Nasal B. parapertussis DNA (PCR) NOT DETECTED 07/27/20 09:10 Nasal Coronavir 229E PCR NOT DETECTED 07/27/20 09:10 Nasal Coronavir HKU1 PCR NOT DETECTED 07/27/20 09:10 Nasal Coronavir NL63 PCR NOT DETECTED 07/27/20 09:10 Nasal Coronavir OC43 PCR NOT DETECTED 07/27/20 09:10 Nasal Enterovir/Rhinovir PCR NOT DETECTED 07/27/20 09:10 Nasal Influenza B PCR NOT DETECTED 07/27/20 09:10 Nasal Influenza A PCR NOT DETECTED 07/27/20 09:10 Nasal Parainfluen 1 PCR NOT DETECTED 07/27/20 09:10 Nasal Parainfluen 2 PCR NOT DETECTED 07/27/20 09:10 Nasal Parainfluen 3 PCR NOT DETECTED 07/27/20 09:10 Nasal Parainfluen 4 PCR NOT DETECTED 07/27/20 09:10 Nasal RSV (PCR) NOT DETECTED 07/27/20 09:10 Nasal B.pertussis DNA PCR NOT DETECTED 07/27/20 09:10 Nasal C.pneumoniae (PCR) NOT DETECTED 07/27/20 09:10 Kaleb Human Metapneumo PCR NOT DETECTED 07/27/20 09:10 Nasal M.pneumoniae (PCR) NOT DETECTED 07/27/20 09:10 Nasal SARS-CoV-2 (PCR) NOT DETECTED 07/27/20 09:10 ABX Reporting Has patient been on IV antibiotics over the past 48 hours?: Yes Current Medications - Current Medications Current Medications: Active Medications Acetaminophen (Acetaminophen 325 Mg Tablet) 650 mg PO Q6HR PRN PRN Reason: Pain or Fever > 38C (100.4F) Last Admin: 07/28/20 10:55 Dose: 650 mg Documented by: Azithromycin (Azithromycin 250 Mg Tablet) 250 mg PO DAILY [facility] Stop: 08/02/20 10:19 Last Admin: 07/29/20 10:30 Dose: 250 mg Documented by: Budesonide (Budesonide 0.5 Mg/2 Ml Neb) 0.5 mg INH RTBID [facility] Last Admin: 07/29/20 07:50 Dose: 0.5 mg Documented by: Guaifenesin (Guaifenesin 600 Mg Tablet) 600 mg PO BID [facility] Last Admin: 07/29/20 08:48 Dose: 600 mg Documented by: Ipratropium [place] (Ipratropium 0.2 Mg/Ml Neb) 0.5 mg INH RTQID FELIBERTO Lactulose (Lactulose 10 Gm /15 Ml Udc) 10 gm PO TID [facility] Last Admin: 07/29/20 13:36 Dose: 10 gm Documented by: Levalbuterol HCl (Levalbuterol 1.25 Mg/3 Ml Neb) 1.25 mg INH RTQID FELIBERTO Last Admin: 07/29/20 11:10 Dose: 1.25 mg Documented by: Lorazepam (Lorazepam 2 Mg/Ml Vial) 2 mg IVP Q30M PRN; Protocol PRN Reason: CIWA >8 Last Admin: 07/28/20 14:50 Dose: 2 mg Documented by: Methylprednisolone (Methylprednisolone Succinate 40 Mg/Ml Vial) 40 mg IVP TID [facility] Montelukast Sodium (Montelukast 10 Mg Tablet) 10 mg PO QPM [facility] Last Admin: 07/28/20 21:12 Dose: 10 mg Documented by: Morphine Sulfate (Morphine 2 Mg/Ml Carpuject) 2 mg IVP Q8HR PRN PRN Reason: Shortness of Air/Wheezing Last Admin: 07/29/20 13:36 Dose: 2 mg Documented by: Multi-Ingredient Ointment (Zinc Oxide 20% Oint 30 Gm Tube) 1 applic TOP PRN PRN PRN Reason: Skin Care Last Admin: 07/28/20 14:16 Dose: 1 applic Documented by: Nicotine (Nicotine 14 Mg Patch) 1 patch TOP Q24H [facility] Last Admin: 07/28/20 16:28 Dose: 1 patch Documented by: Ondansetron HCl (Ondansetron 4 Mg/2 Ml Vial) 4 mg IVP Q6HR PRN PRN Reason: Nausea / Vomiting Pantoprazole Sodium (Pantoprazole 40 Mg Tablet) 40 mg PO QDAC [facility] Last Admin: 07/29/20 05:30 Dose: 40 mg Documented by: Multivit/Folic Acid/Iron ( Vitamin Tablet) 1 tab PO DAILYWM [facility] Last Admin: 07/29/20 09:14 Dose: 1 tab Documented by: Propranolol HCl (Propranolol 10 Mg Tablet) 10 mg PO BID [facility] Last Admin: 07/29/20 08:48 Dose: 10 mg Documented by: Rivaroxaban (Rivaroxaban 10 Mg Tablet) 10 mg PO DAILY [facility] Last Admin: 07/29/20 08:48 Dose: 10 mg Documented by: Sodium Chloride (Sodium Chloride Flush 0.9% 10 Ml Syringe) 10 ml IVP PRN PRN PRN Reason: NEEDED PER PROVIDER ORDERS Sodium Chloride (Sodium Chloride Flush 0.9% 10 Ml Syringe) 10 ml IVP 0100,0900,1700 [facility] Last Admin: 07/29/20 08:59 Dose: 10 ml Documented by: Spironolactone (Spironolactone 25 Mg Tablet) 50 mg PO DAILY [facility] Last Admin: 07/29/20 08:48 Dose: 50 mg Documented by: Thiamine HCl (Thiamine 100 Mg Tablet) 100 mg PO DAILY [facility] Last Admin: 07/29/20 09:14 Dose: 100 mg Documented by: Throat Lozenges (Benzocaine/Menthol Lozenge) 1 lozenge MM Q2HR PRN PRN Reason: Throat pain Last Admin: 07/29/20 12:17 Dose: 1 lozenge Documented by: Propranolol [Inderal] 10 mg PO BID 09/21/18 Albuterol Sulfate [Proair Hfa Inhaler] 2 puffs INH Q4H PRN 05/13/20 Furosemide [Lasix] 40 mg PO DAILY 06/19/20 Montelukast [Singulair] 10 mg PO QPM 06/19/20 Rivaroxaban [Xarelto] 10 mg PO DAILY 06/19/20 Spironolactone [Aldactone] 50 mg PO DAILY 06/19/20 Tiotropium [place] [Spiriva] 1 puffs INH DAILY 06/19/20 Lactulose 15 ml PO TID 07/28/20
[2020-07-29] MEDS ORDERED: methylPREDNISolone SUCCINATE 40 MG/ML VIAL IVP SCH (14:00)
--- NOTE | 2020-07-29 14:50 | PROVIDER PROGRESS NOTE ---
Assessment/Plan - Problem List (1) COPD exacerbation Assessment/Plan: XSlowly improving on nebs and sterois. Will add empiric oral Levaquin for her bronchitic cough. Cont O2 suppl (2) Leukocytosis Assessment/Plan: Presumably this is from starting on high-dose steroids, no signs of sepsis or obvios other infection. Will start po Levaquin empirically for COPD exacerbation. Bld cx if she spikes a fever. Follow CBC daily (3) Hyponatremia Assessment/Plan: Slowly improving Continue iv NS Follow BMP daily (4) Hypokalemia Assessment/Plan: Improving with aggressie replacement with K riders. Continue replacements. Follow BMP daily (5) Hypercalcemia Assessment/Plan: Slowly improving with replacement. Follow Ca daily. (6) Cirrhosis with alcoholism Assessment/Plan: She is noticing a fine hand and arm trremor. Reports her last drink was 4 days ago. She is already on a CIWA protocol, continue this with Ativan dosing when needed. She was in rehab for alcohol recently, apparently has resumed alcohol intake after [facility], however. SW to see. (7) Constipation Assessment/Plan: Will reconcile that she was indeed taking Lactuose, with our pharmacist, then order it. She also wants a glycerine supp, and would be amenable to manual dissimpaction, she said (8) Severe malnutrition Assessment/Plan: Nutrition too see for recommendations (9) Tobacco use Assessment/Plan: Nicotine patch ordered - Current Meds Current Meds: Current Medications Generic Name Dose Route Start Last Admin Trade Name Freq PRN Reason Stop Dose Admin Acetaminophen 650 mg 07/28/20 00:29 07/28/20 10:55 Acetaminophen 325 Mg Tablet PO 650 mg Q6HR PRN Administration Pain or Fever > 38C (100.4F) Azithromycin 250 mg 07/29/20 10:20 07/29/20 10:30 Azithromycin 250 Mg Tablet PO 08/02/20 10:19 250 mg DAILY FELIBERTO Administration Budesonide 0.5 mg 07/27/20 19:00 07/29/20 07:50 Budesonide 0.5 Mg/2 Ml Neb INH 0.5 mg RTBID FELIBERTO Administration Guaifenesin 600 mg 07/28/20 21:00 07/29/20 08:48 Guaifenesin 600 Mg Tablet PO 600 mg BID FELIBERTO Administration Lactulose 10 gm 07/28/20 14:00 07/29/20 13:36 Lactulose 10 Gm /15 Ml Udc PO 10 gm TID FELIBERTO Administration Levalbuterol HCl 1.25 mg 07/27/20 19:00 07/29/20 11:10 Levalbuterol 1.25 Mg/3 Ml Neb INH 1.25 mg RTQID FELIBERTO Administration Lorazepam 2 mg 07/27/20 16:49 07/28/20 14:50 Lorazepam 2 Mg/Ml Vial IVP 2 mg Q30M PRN Administration CIWA >8 Protocol Montelukast Sodium 10 mg 07/27/20 21:00 07/28/20 21:12 Montelukast 10 Mg Tablet PO 10 mg QPM FELIBERTO Administration Morphine Sulfate 2 mg 07/29/20 12:28 07/29/20 13:36 Morphine 2 Mg/Ml Carpuject IVP 2 mg Q8HR PRN Administration Shortness of Air/Wheezing Multi-Ingredient Ointment 1 applic 07/28/20 13:35 07/28/20 14:16 Zinc Oxide 20% Oint 30 Gm Tube TOP 1 applic PRN PRN Administration Skin Care Nicotine 1 patch 07/27/20 16:00 07/28/20 16:28 Nicotine 14 Mg Patch TOP 1 patch Q24H FELIBERTO Administration Pantoprazole Sodium 40 mg 07/28/20 07:00 07/29/20 05:30 Pantoprazole 40 Mg Tablet PO 40 mg QDAC FELIBERTO Administration Multivit/Folic Acid/Iron 1 tab 07/29/20 09:00 07/29/20 09:14 Vitamin Tablet PO 1 tab DAILYWM FELIBERTO Administration Propranolol HCl 10 mg 07/27/20 21:00 07/29/20 08:48 Propranolol 10 Mg Tablet PO 10 mg BID FELIBERTO Administration Rivaroxaban 10 mg 07/28/20 09:00 07/29/20 08:48 Rivaroxaban 10 Mg Tablet PO 10 mg DAILY FELIBERTO Administration Sodium Chloride 10 ml 07/27/20 17:00 07/29/20 08:59 Sodium Chloride Flush 0.9% 10 Ml Syringe IVP 10 ml 0100,0900,1700 FELIBERTO Administration Spironolactone 50 mg 07/28/20 09:00 07/29/20 08:48 Spironolactone 25 Mg Tablet PO 50 mg DAILY FELIBERTO Administration Thiamine HCl 100 mg 07/29/20 09:00 07/29/20 09:14 Thiamine 100 Mg Tablet PO 100 mg DAILY FELIBERTO Administration Throat Lozenges 1 lozenge 07/28/20 02:30 07/29/20 12:17 Benzocaine/Menthol Lozenge MM 1 lozenge Q2HR PRN Administration Throat pain - Lab Result Fish Bone Diagrams: 07/29/20 05:24 07/29/20 05:24 - Additional Planning My Orders: My Active Orders 07/28/20 14:00 Lactulose [Enulose] 10 gm PO TID 07/28/20 21:00 guaiFENesin [Mucinex] 600 mg PO BID Subjective - Subjective Patient Reports: Shortness of Breath (better but still working to breath, pursed lips.), Other (Has severe rectal pain, due to constipation, requests Lactulose tid to have a BM.) Objective Vital Signs: Vital Signs - 24 hr 07/28/20 07/28/20 07/28/20 15:17 16:04 18:27 Temperature 36.2 C L Heart Rate 88 88 Heart Rate [ Brachial] Heart Rate [ 85 Monitoring electrodes] Respiratory 16 16 16 Rate Blood Pressure [Left Brachial artery] Blood Pressure 91/52 L [Right Brachial artery] O2 Saturation 94 07/28/20 07/28/20 07/29/20 21:10 23:36 05:00 Temperature 36.2 C L 36.3 C L 36.2 C L Heart Rate Heart Rate [ 94 90 98 Brachial] Heart Rate [ Monitoring electrodes] Respiratory 20 18 20 Rate Blood Pressure 100/54 L 128/67 [Left Brachial artery] Blood Pressure 116/61 [Right Brachial artery] O2 Saturation 98 92 93 07/29/20 07/29/20 07/29/20 07:50 11:10 11:53 Temperature 36.3 C L 36.3 C L Heart Rate 115 H 104 H Heart Rate [ 105 H 103 H Brachial] Heart Rate [ Monitoring electrodes] Respiratory 20 16 20 Rate Blood Pressure 126/69 125/61 [Left Brachial artery] Blood Pressure [Right Brachial artery] O2 Saturation 93 92 Oxygen O2 Source Nasal cannula Oxygen Flow Rate 2 I&O (Last 24 Hrs): Intake and Output Totals x24h 07/27/20 07/28/20 07/29/20 23:59 23:59 23:59 Intake Total 3463.334 3435.200 1250.83 Output Total 600 1150 1500 Balance 2863.334 2285.200 -249.17 General: Alert, Oriented x3 HEENT: Mucous membr. moist/pink, Other (Cachectic, sunken eyes) Neck: Supple Neuro: Alert, Other (Tremor of hands and arms when extends them and during squeezing) Respiratory: No respiratory distress (on O2 per n.c.), Wheezes Abdomen: Soft, No tenderness Extremities: No clubbing, No edema - Results Results: Laboratory Results WBC 22.7 x10^3/uL (4.8-10.8) H 07/29/20 05:24 RBC 4.23 10^6/uL (4.20-5.40) 07/29/20 05:24 Hgb 14.3 g/dL (12.0-16.0) 07/29/20 05:24 Hct 43.2 % (37.0-47.0) 07/29/20 05:24 MCV 102.1 fL (81.0-99.0) H 07/29/20 05:24 MCH 33.8 pg (27.0-31.0) H 07/29/20 05:24 MCHC 33.1 g/dL (32.0-36.0) 07/29/20 05:24 RDW 11.9 % (12.0-15.0) L 07/29/20 05:24 Plt Count 196 10^3/uL (130-450) 07/29/20 05:24 MPV 10.2 fL (7.9-10.8) 07/29/20 05:24 Neut # (Auto) Not Reportable 07/29/20 05:24 Lymph # (Auto) Not Reportable 07/29/20 05:24 Twiggs # (Auto) Not Reportable 07/29/20 05:24 Eos # (Auto) Not Reportable 07/29/20 05:24 Baso # (Auto) Not Reportable 07/29/20 05:24 Absolute Nucleated RBC Not Reportable 07/29/20 05:24 Total Counted 100 07/29/20 05:24 Band Neuts % (Manual) 0 % (0-10) 07/29/20 05:24 Abnorm Lymph % (Manual) 0 % 07/29/20 05:24 Myelocytes % 1 % (-0) H 07/29/20 05:24 Nucleated RBC % Not Reportable 07/29/20 05:24 Neutrophils # (Manual) 21.3 10^3/uL (1.5-6.6) H 07/29/20 05:24 Lymphocytes # (Manual) 0.9 10^3/uL (1.5-3.5) L 07/29/20 05:24 Monocytes # (Manual) 0.2 10^3/uL (0.0-1.0) 07/29/20 05:24 Eosinophils # (Manual) 0.0 10^3/uL (0-0.7) 07/29/20 05:24 Basophils # (Manual) 0.0 10^3/uL (0-0.1) 07/29/20 05:24 Differential Comment MANUAL DIFFERENTIAL 07/29/20 05:24 WBC Morphology NORMAL APPEARANCE (NORMAL) 07/29/20 05:24 Platelet Estimate NORMAL (130-450,000) (NORMAL) 07/29/20 05:24 Platelet Morphology NORMAL APPEARANCE (NORMAL) 07/29/20 05:24 RBC Morph Micro Appear NORMAL APPEARANCE (NORMAL) 07/29/20 05:24 D-Dimer 512.0 ng/mL (200.0-255.0) H 07/27/20 08:42 Bld Gas Analysis Time 1250 07/29/20 12:50 Sample Site RIGHT RADIAL 07/29/20 12:50 ABG pH 7.38 (7.35-7.45) 07/29/20 12:50 ABG pCO2 68 mmHg (34-45) H* 07/29/20 12:50 ABG pO2 59 mmHg (80-100) L 07/29/20 12:50 ABG HCO3 38.8 mmol/L (22.0-26.0) H 07/29/20 12:50 ABG Total CO2 40.9 MMOL/L (21.0-29.0) H* 07/29/20 12:50 ABG O2 Saturation 91 % (94-98) L 07/29/20 12:50 ABG Base Excess 10.5 mmol/L (-2.0-3.0) H 07/29/20 12:50 Lance Test POSITIVE 07/29/20 12:50 VBG pH 7.536 (7.31-7.41) H 07/27/20 10:06 VBG pCO2 50.8 mmHg (41-51) 07/27/20 10:06 VBG pO2 43.3 mmHg (25-47) 07/27/20 10:06 VBG HCO3 42.1 mmol/L (23-28) H 07/27/20 10:06 VBG Total CO2 43.6 mmol/L (24-29) H 07/27/20 10:06 VBG O2 Saturation 84.4 % (60-80) H 07/27/20 10:06 VBG Base Excess 16.4 mmol/L (-2 - +2) H 07/27/20 10:06 O2 Delivery Device NASAL CANNULA 07/29/20 12:50 O2 Liters/Min 2.00 LPM 07/29/20 12:50 Sodium 134 mmol/L (135-145) L 07/29/20 05:24 Potassium 3.4 mmol/L (3.5-5.0) L 07/29/20 05:24 Chloride 94 mmol/L (101-111) L 07/29/20 05:24 Carbon Dioxide 34 mmol/L (21-32) H 07/29/20 05:24 Anion Gap 6.0 (6-13) 07/29/20 05:24 BUN 10 mg/dL (6-20) 07/29/20 05:24 Creatinine 0.3 mg/dL (0.4-1.0) L 07/29/20 05:24 Estimated GFR (MDRD) 219 (>89) 07/29/20 05:24 Glucose 132 mg/dL (70-100) H 07/29/20 05:24 Calcium 8.2 mg/dL (8.5-10.3) L 07/29/20 05:24 Magnesium 1.9 mg/dL (1.7-2.8) 07/27/20 08:42 Total Bilirubin 1.2 mg/dL (0.2-1.0) H 07/27/20 08:42 AST 38 IU/L (10-42) 07/27/20 08:42 ALT 27 IU/L (10-60) 07/27/20 08:42 Alkaline Phosphatase 75 IU/L (42-121) 07/27/20 08:42 Troponin I High Sens 7.7 ng/L (2.3-14.8) 07/29/20 09:41 B-Natriuretic Peptide 218 pg/mL (5-100) H 07/27/20 10:06 Total Protein 6.9 g/dL (6.7-8.2) 07/27/20 08:42 Albumin 4.0 g/dL (3.2-5.5) 07/27/20 08:42 Globulin 2.9 g/dL (2.1-4.2) 07/27/20 08:42 Albumin/Globulin Ratio 1.4 (1.0-2.2) 07/27/20 08:42 Lipase 48 U/L (22-51) 07/27/20 08:42 Nasal Adenovirus (PCR) NOT DETECTED 07/27/20 09:10 Nasal B. parapertussis DNA (PCR) NOT DETECTED 07/27/20 09:10 Nasal Coronavir 229E PCR NOT DETECTED 07/27/20 09:10 Nasal Coronavir HKU1 PCR NOT DETECTED 07/27/20 09:10 Nasal Coronavir NL63 PCR NOT DETECTED 07/27/20 09:10 Nasal Coronavir OC43 PCR NOT DETECTED 07/27/20 09:10 Nasal Enterovir/Rhinovir PCR NOT DETECTED 07/27/20 09:10 Nasal Influenza B PCR NOT DETECTED 07/27/20 09:10 Nasal Influenza A PCR NOT DETECTED 07/27/20 09:10 Nasal Parainfluen 1 PCR NOT DETECTED 07/27/20 09:10 Nasal Parainfluen 2 PCR NOT DETECTED 07/27/20 09:10 Nasal Parainfluen 3 PCR NOT DETECTED 07/27/20 09:10 Nasal Parainfluen 4 PCR NOT DETECTED 07/27/20 09:10 Nasal RSV (PCR) NOT DETECTED 07/27/20 09:10 Nasal B.pertussis DNA PCR NOT DETECTED 07/27/20 09:10 Nasal C.pneumoniae (PCR) NOT DETECTED 07/27/20 09:10 Kaleb Human Metapneumo PCR NOT DETECTED 07/27/20 09:10 Nasal M.pneumoniae (PCR) NOT DETECTED 07/27/20 09:10 Nasal SARS-CoV-2 (PCR) NOT DETECTED 07/27/20 09:10
[2020-07-29] MEDS: NICOTINE 14 MG PATCH TOP SCH (15:35)
[2020-07-29] MEDS: IPRATROPIUM 0.2 MG/ML NEB INH SCH ×3 (16:10→21:28)
[2020-07-29] MEDS: ACETAMINOPHEN 325 MG TABLET PO PRN (21:49)
[2020-07-29] MEDS: MONTELUKAST 10 MG TABLET PO SCH (21:50)
[2020-07-30 05:45] LABS: BASOPHILS % (AUTO) 0.3 %; EOSINOPHILS # (AUTO) 0.1 10^3/uL (0.0-0.7); EOSINOPHILS % (AUTO) 0.4 %; LYMPHOCYTES # (AUTO) 0.5 10^3/uL (1.5-3.5); MEAN CORPUSCULAR HEMOGLOBIN 33.6 pg (27.0-31.0); MEAN CORPUSCULAR HGB CONC 32.5 g/dL (32.0-36.0); MEAN CORPUSCULAR VOLUME 103.4 fL (81.0-99.0); MEAN PLATELET VOLUME 10.2 fL (7.9-10.8); MONOCYTES # (AUTO) 0.7 10^3/uL (0.0-1.0); MONOCYTES % (AUTO) 4.6 %; NEUTROPHILS # (AUTO) 14.5 10^3/uL (1.5-6.6); NEUTROPHILS % (AUTO) 90.8 %; PLT - PLATELET COUNT 193 10^3/uL (130-450); RED BLOOD COUNT 3.87 10^6/uL (4.20-5.40); WHITE BLOOD COUNT 15.9 x10^3/uL (4.8-10.8)
[2020-07-30 05:53] LABS: CALCIUM 8.5 mg/dL (8.5-10.3); CREATININE 0.3 mg/dL (0.4-1.0); POTASSIUM 3.5 mmol/L (3.5-5.0)
[2020-07-30] MEDS: LACTULOSE 10 GM /15 ML UDC PO SCH ×3 (06:15→21:29)
[2020-07-30] MEDS: methylPREDNISolone SUCCINATE 40 MG/ML VIAL IVP SCH ×3 (06:15→21:30)
[2020-07-30] MEDS: PANTOPRAZOLE 40 MG TABLET PO SCH (06:15)
[2020-07-30] MEDS: PRENATAL VITAMIN TABLET PO SCH (07:46)
[2020-07-30] MEDS: ACETAMINOPHEN 325 MG TABLET PO PRN ×2 (07:58→20:08)
[2020-07-30] MEDS: BUDESONIDE 0.5 MG/2 ML NEB INH SCH ×2 (08:44→21:19)
[2020-07-30] MEDS: LEVALBUTEROL 1.25 MG/3 ML NEB INH SCH ×4 (08:44→15:00)
[2020-07-30] MEDS: IPRATROPIUM 0.2 MG/ML NEB INH SCH ×5 (08:45→21:18)
[2020-07-30] MEDS ORDERED: ASPIRIN CHEW 81 MG TABLET PO STA (08:52)
[2020-07-30] MEDS ORDERED: NITROGLYCERIN SL 0.4 MG TABLET SL PRN (09:11)
[2020-07-30] MEDS: AZITHROMYCIN 250 MG TABLET PO SCH (09:14)
[2020-07-30] MEDS: RIVAROXABAN 10 MG TABLET PO SCH (09:14)
[2020-07-30] MEDS: METOPROLOL TARTRATE 25 MG TABLET PO SCH ×2 (09:14→21:29)
[2020-07-30] MEDS: SPIRONOLACTONE 25 MG TABLET PO SCH (09:14)
[2020-07-30] MEDS: THIAMINE 100 MG TABLET PO SCH (09:14)
[2020-07-30] MEDS: guaiFENesin 600 MG TABLET PO SCH ×2 (09:15→21:29)
[2020-07-30] MEDS: GI COCKTAIL 120 ML BOTTLE PO PRN (09:36)
[2020-07-30 09:44] LABS: CHOL/HDL RATIO 1.7 (<4.4); CHOLESTEROL 164 mg/dL; HDL CHOLESTEROL 94 mg/dL; LDL CHOLESTEROL,CALCULATED 58 mg/dL; LDL/HDL RATIO 0.6 (<4.4); TRIGLYCERIDES 59 mg/dL; VLDL CHOLESTEROL 12 mg/dL
[2020-07-30] MEDS: SODIUM CHLORIDE FLUSH 0.9% 10 ML SYRINGE IVP SCH ×3 (13:41→23:55)
--- NOTE | 2020-07-30 14:30 | PROVIDER PROGRESS NOTE ---
Assessment/Plan - Problem List (1) Acute on chronic respiratory failure with hypoxia and hypercapnia Assessment/Plan: 07/30 pt had 93% on 2.5 lpm of O2. pt usually took 1 lpm of O2 at home. pt has no acute respiratory distress. We will continue intravenous Solu-Medrol, continue breathing treatment, continue supplemental oxygen as needed. pt had elevated serum carbon Dioxide, we will remain pt's O2 sats >88%, slowly reduced supplement of O2 dosage as pt can tolerate, hold Ativan now and hold Lasix. CXR reveal stable. pt Feel comfortable, She has no acute respiratory distress now. Patient has history of hypercapnia. ABG show patient had normal pH. Patient is alert and orientated +4. Patient is DNR CODE STATUS. We will continue treat underlying COPD exacerbation, Anxiety. Supplemental oxygen as needed. (2) COPD exacerbation Conclusion/Plan: CTA show patient no PE, mild centralobular emphysema. Patient taken 1 L oxygen in the home for her chronic COPD. We will reduce patient Solu-Medrol to 40 3 times daily. Add morphine as needed, Continue INH treatment, Supplemental oxygen as needed. (3)chest pain 07/30 pt Report left anterior chest pain. Troponins show patient had slightly elevated troponin but repeated troponin show flat. pt report GI cocktail did help release some of his chest pain. Repeat EKG has no clear picture different from previous one. pt was resumed her home Xarelto. pt was given once Aspirin, PRN nitro, continue Morphine PRN, supplement of O2 as needed, order ECHO is pending. it is more likely atypical chest pain. refer pt to have stress test as out-pt, continue tele monitor pt, change pt's propranolol to Metoprolol. lipid panel test is negative for HLD. (4) Hyponatremia Na 134 today, Nearly resolved (5) Hypokalemia K is 3.4, replaced (6) Cirrhosis with alcoholism with asterixis Conclusion/Plan: 07/30 Strongly advised the patient quitted alcohol, do not drink alcohol again. pt report she had new hand asterixis which is likely caused by her recently drink alcohol again and worsening her liver cirrhosis and failure. Patient was recently in a rehab program and was discharged on 07/21/20. However the patient went back to drinking. CIWA protocol initiated. Multivitamins IV initially for pt, switch to PO and B1 (7) GERD (gastroesophageal reflux disease) Conclusion/Plan: Protonix 40 mg p.o. daily (8) Hypertension Conclusion/Plan: stable, continue On propanolol 10 mg p.o. twice daily and Spironolactone (9) History of pulmonary embolism Conclusion/Plan: no PE in CTA. continue On Xarelto 10 mg p.o. daily (10) Leukocytosis Conclusion/Plan: Likely reactive. pt has IV of steroid, Will monitor. - Current Meds Current Meds: Current Medications Generic Name Dose Route Start Last Admin Trade Name Freq PRN Reason Stop Dose Admin Acetaminophen 650 mg 07/28/20 00:29 07/30/20 07:58 Acetaminophen 325 Mg Tablet PO 650 mg Q6HR PRN Administration Pain or Fever > 38C (100.4F) Azithromycin 250 mg 07/29/20 10:20 07/30/20 09:14 Azithromycin 250 Mg Tablet PO 08/02/20 10:19 250 mg DAILY FELIBERTO Administration Budesonide 0.5 mg 07/27/20 19:00 07/30/20 08:44 Budesonide 0.5 Mg/2 Ml Neb INH 0.5 mg RTBID FELIBERTO Administration Guaifenesin 600 mg 07/28/20 21:00 07/30/20 09:15 Guaifenesin 600 Mg Tablet PO 600 mg BID FELIBERTO Administration Ipratropium [place] 0.5 mg 07/29/20 13:00 07/30/20 12:04 Ipratropium 0.2 Mg/Ml Neb INH 0.5 mg RTQID FELIBERTO Administration Lactulose 10 gm 07/28/20 14:00 07/30/20 13:41 Lactulose 10 Gm /15 Ml Udc PO 10 gm TID FELIBERTO Administration Levalbuterol HCl 1.25 mg 07/27/20 19:00 07/30/20 12:04 Levalbuterol 1.25 Mg/3 Ml Neb INH 1.25 mg RTQID FELIBERTO Administration Methylprednisolone 40 mg 07/29/20 22:00 07/30/20 13:41 Methylprednisolone Succinate 40 Mg/Ml Vial IVP 40 mg TID FELIBERTO Administration Metoprolol Tartrate 25 mg 07/30/20 09:00 07/30/20 09:14 Metoprolol Tartrate 25 Mg Tablet PO 25 mg BID FELIBERTO Administration Montelukast Sodium 10 mg 07/27/20 21:00 07/29/20 21:50 Montelukast 10 Mg Tablet PO 10 mg QPM FELIBERTO Administration Morphine Sulfate 2 mg 07/29/20 12:28 07/29/20 13:36 Morphine 2 Mg/Ml Carpuject IVP 2 mg Q8HR PRN Administration Shortness of Air/Wheezing Multi-Ingredient Mouthwash/Gargle 30 ml 07/30/20 08:57 07/30/20 09:36 Gi Cocktail 120 Ml Bottle PO 30 ml Q4H PRN Administration Abdominal Pain Multi-Ingredient Ointment 1 applic 07/28/20 13:35 07/28/20 14:16 Zinc Oxide 20% Oint 30 Gm Tube TOP 1 applic PRN PRN Administration Skin Care Nicotine 1 patch 07/27/20 16:00 07/29/20 15:35 Nicotine 14 Mg Patch TOP 1 patch Q24H FELIBERTO Administration Ondansetron HCl 4 mg 07/27/20 14:17 07/29/20 20:53 Ondansetron 4 Mg/2 Ml Vial IVP 4 mg Q6HR PRN Administration Nausea / Vomiting Pantoprazole Sodium 40 mg 07/28/20 07:00 07/30/20 06:15 Pantoprazole 40 Mg Tablet PO 40 mg QDAC FELIBERTO Administration Multivit/Folic Acid/Iron 1 tab 07/29/20 09:00 07/30/20 07:46 Vitamin Tablet PO 1 tab DAILYWM FELIBERTO Administration Rivaroxaban 10 mg 07/28/20 09:00 07/30/20 09:14 Rivaroxaban 10 Mg Tablet PO 10 mg DAILY FELIBERTO Administration Sodium Chloride 10 ml 07/27/20 17:00 07/30/20 13:41 Sodium Chloride Flush 0.9% 10 Ml Syringe IVP 10 ml 0100,0900,1700 FELIBERTO Administration Spironolactone 50 mg 07/28/20 09:00 07/30/20 09:14 Spironolactone 25 Mg Tablet PO 50 mg DAILY FELIBERTO Administration Thiamine HCl 100 mg 07/29/20 09:00 07/30/20 09:14 Thiamine 100 Mg Tablet PO 100 mg DAILY FELIBERTO Administration Throat Lozenges 1 lozenge 07/28/20 02:30 07/29/20 15:35 Benzocaine/Menthol Lozenge MM 1 lozenge Q2HR PRN Administration Throat pain - Lab Result Fish Bone Diagrams: 07/30/20 05:17 07/30/20 05:17 - Additional Planning My Orders: My Active Orders 07/29/20 15:40 CUL, RESPIRATORY [RM] Urgent 07/29/20 22:00 methylPREDNISolone SUCCINATE [SOLU-Medrol (40MG VIAL)] 40 mg IVP TID 07/30/20 Evaluate and Treat OT [OT] Routine Evaluate and Treat PT [PT] Routine 07/30/20 08:55 Echo Transthoracic Complete [ECHO] Routine 07/30/20 08:57 Gi Cocktail 30 ml PO Q4H PRN 07/30/20 09:00 Metoprolol Tartrate [Lopressor] 25 mg PO BID 07/30/20 09:11 Nitroglycerin [Nitrostat] 0.4 mg SL Q5MIN PRN Subjective - Subjective Patient Reports: Feeling Better Objective Vital Signs: Vital Signs - 24 hr 07/29/20 07/29/20 07/29/20 15:54 16:10 20:18 Temperature 36.4 C L 36.7 C Heart Rate 95 Heart Rate [ 105 H 118 H Brachial] Respiratory 20 18 16 Rate Blood Pressure Blood Pressure [Left Brachial artery] Blood Pressure 111/52 L 135/54 H [Right Brachial artery] O2 Saturation 89 L 90 L 07/29/20 07/29/20 07/30/20 21:28 23:51 05:00 Temperature 36.5 C 36.3 C L Heart Rate 112 H Heart Rate [ 100 92 Brachial] Respiratory 18 20 16 Rate Blood Pressure Blood Pressure [Left Brachial artery] Blood Pressure 93/50 L 104/53 L [Right Brachial artery] O2 Saturation 90 L 90 L 07/30/20 07/30/20 07/30/20 08:47 09:14 09:24 Temperature 36.3 C L Heart Rate 98 Heart Rate [ 96 Brachial] Respiratory 20 18 Rate Blood Pressure 122/73 Blood Pressure 108/53 L [Left Brachial artery] Blood Pressure [Right Brachial artery] O2 Saturation 91 L 07/30/20 12:49 Temperature 36.4 C L Heart Rate Heart Rate [ 88 Brachial] Respiratory 16 Rate Blood Pressure Blood Pressure 114/95 H [Left Brachial artery] Blood Pressure [Right Brachial artery] O2 Saturation 93 Oxygen O2 Source Nasal cannula Oxygen Flow Rate 2 I&O (Last 24 Hrs): Intake and Output Totals x24h 07/28/20 07/29/2007/30/21 23:59 23:59 23:59 Intake Total 3435.200 1980.83 740 Output Total 1150 2150 450 Balance 2285.200 -169.17 290 General: Alert, Oriented x3, Cooperative, Mild distress HEENT: Atraumatic Neck: Supple Lymphatic: no adenopathy Neuro: Alert, Non Focal, Oriented Times 3 Cardiovascular: Regular rate, Normal S1, Normal S2 Respiratory: Chest non-tender, Other (Significantly diminished bilaterally lung sound) Abdomen: Normal bowel sounds, Soft Extremities: Normal pulses - Results Results: Laboratory Results WBC 15.9 x10^3/uL (4.8-10.8) H 07/30/20 05:17 RBC 3.87 10^6/uL (4.20-5.40) L 07/30/20 05:17 Hgb 13.0 g/dL (12.0-16.0) 07/30/20 05:17 Hct 40.0 % (37.0-47.0) 07/30/20 05:17 MCV 103.4 fL (81.0-99.0) H 07/30/20 05:17 MCH 33.6 pg (27.0-31.0) H 07/30/20 05:17 MCHC 32.5 g/dL (32.0-36.0) 07/30/20 05:17 RDW 12.0 % (12.0-15.0) 07/30/20 05:17 Plt Count 193 10^3/uL (130-450) 07/30/20 05:17 MPV 10.2 fL (7.9-10.8) 07/30/20 05:17 Neut # (Auto) 14.5 10^3/uL (1.5-6.6) H 07/30/20 05:17 Lymph # (Auto) 0.5 10^3/uL (1.5-3.5) L 07/30/20 05:17 Hill # (Auto) 0.7 10^3/uL (0.0-1.0) 07/30/20 05:17 Eos # (Auto) 0.1 10^3/uL (0.0-0.7) 07/30/20 05:17 Baso # (Auto) 0.0 10^3/uL (0.0-0.1) 07/30/20 05:17 Absolute Nucleated RBC 0.00 x10^3/uL 07/30/20 05:17 Total Counted 100 07/29/20 05:24 Band Neuts % (Manual) 0 % (0-10) 07/29/20 05:24 Abnorm Lymph % (Manual) 0 % 07/29/20 05:24 Myelocytes % 1 % (-0) H 07/29/20 05:24 Nucleated RBC % 0.0 /100WBC 07/30/20 05:17 Neutrophils # (Manual) 21.3 10^3/uL (1.5-6.6) H 07/29/20 05:24 Lymphocytes # (Manual) 0.9 10^3/uL (1.5-3.5) L 07/29/20 05:24 Monocytes # (Manual) 0.2 10^3/uL (0.0-1.0) 07/29/20 05:24 Eosinophils # (Manual) 0.0 10^3/uL (0-0.7) 07/29/20 05:24 Basophils # (Manual) 0.0 10^3/uL (0-0.1) 07/29/20 05:24 Differential Comment MANUAL DIFFERENTIAL 07/29/20 05:24 WBC Morphology NORMAL APPEARANCE (NORMAL) 07/29/20 05:24 Platelet Estimate NORMAL (130-450,000) (NORMAL) 07/29/20 05:24 Platelet Morphology NORMAL APPEARANCE (NORMAL) 07/29/20 05:24 RBC Morph Micro Appear NORMAL APPEARANCE (NORMAL) 07/29/20 05:24 D-Dimer 512.0 ng/mL (200.0-255.0) H 07/27/20 08:42 Bld Gas Analysis Time 1250 07/29/20 12:50 Sample Site RIGHT RADIAL 07/29/20 12:50 ABG pH 7.38 (7.35-7.45) 07/29/20 12:50 ABG pCO2 68 mmHg (34-45) H* 07/29/20 12:50 ABG pO2 59 mmHg (80-100) L 07/29/20 12:50 ABG HCO3 38.8 mmol/L (22.0-26.0) H 07/29/20 12:50 ABG Total CO2 40.9 MMOL/L (21.0-29.0) H* 07/29/20 12:50 ABG O2 Saturation 91 % (94-98) L 07/29/20 12:50 ABG Base Excess 10.5 mmol/L (-2.0-3.0) H 07/29/20 12:50 Lance Test POSITIVE 07/29/20 12:50 VBG pH 7.536 (7.31-7.41) H 07/27/20 10:06 VBG pCO2 50.8 mmHg (41-51) 07/27/20 10:06 VBG pO2 43.3 mmHg (25-47) 07/27/20 10:06 VBG HCO3 42.1 mmol/L (23-28) H 07/27/20 10:06 VBG Total CO2 43.6 mmol/L (24-29) H 07/27/20 10:06 VBG O2 Saturation 84.4 % (60-80) H 07/27/20 10:06 VBG Base Excess 16.4 mmol/L (-2 - +2) H 07/27/20 10:06 O2 Delivery Device NASAL CANNULA 07/29/20 12:50 O2 Liters/Min 2.00 LPM 07/29/20 12:50 Sodium 133 mmol/L (135-145) L 07/30/20 05:17 Potassium 3.5 mmol/L (3.5-5.0) 07/30/20 05:17 Chloride 85 mmol/L (101-111) L 07/30/20 05:17 Carbon Dioxide 41 mmol/L (21-32) H* 07/30/20 05:17 Anion Gap 7.0 (6-13) 07/30/20 05:17 BUN 17 mg/dL (6-20) 07/30/20 05:17 Creatinine 0.3 mg/dL (0.4-1.0) L 07/30/20 05:17 Estimated GFR (MDRD) 219 (>89) 07/30/20 05:17 Glucose 163 mg/dL (70-100) H 07/30/20 05:17 Calcium 8.5 mg/dL (8.5-10.3) 07/30/20 05:17 Magnesium 1.9 mg/dL (1.7-2.8) 07/27/20 08:42 Total Bilirubin 1.2 mg/dL (0.2-1.0) H 07/27/20 08:42 AST 38 IU/L (10-42) 07/27/20 08:42 ALT 27 IU/L (10-60) 07/27/20 08:42 Alkaline Phosphatase 75 IU/L (42-121) 07/27/20 08:42 Troponin I High Sens 21.0 ng/L (2.3-14.8) H* 07/30/20 12:04 B-Natriuretic Peptide 218 pg/mL (5-100) H 07/27/20 10:06 Total Protein 6.9 g/dL (6.7-8.2) 07/27/20 08:42 Albumin 4.0 g/dL (3.2-5.5) 07/27/20 08:42 Globulin 2.9 g/dL (2.1-4.2) 07/27/20 08:42 Albumin/Globulin Ratio 1.4 (1.0-2.2) 07/27/20 08:42 Triglycerides 59 mg/dL (-149) 07/30/20 08:13 Cholesterol 164 mg/dL (-199) 07/30/20 08:13 LDL Cholesterol, Calc 58 mg/dL (-129) 07/30/20 08:13 VLDL Cholesterol 12 mg/dL 07/30/20 08:13 HDL Cholesterol 94 mg/dL (60-) 07/30/20 08:13 LDL/HDL Ratio 0.6 (<4.4) 07/30/20 08:13 Cholesterol/HDL Ratio 1.7 (<4.4) 07/30/20 08:13 Lipase 48 U/L (22-51) 07/27/20 08:42 Nasal Adenovirus (PCR) NOT DETECTED 07/27/20 09:10 Nasal B. parapertussis DNA (PCR) NOT DETECTED 07/27/20 09:10 Nasal Coronavir 229E PCR NOT DETECTED 07/27/20 09:10 Nasal Coronavir HKU1 PCR NOT DETECTED 07/27/20 09:10 Nasal Coronavir NL63 PCR NOT DETECTED 07/27/20 09:10 Nasal Coronavir OC43 PCR NOT DETECTED 07/27/20 09:10 Nasal Enterovir/Rhinovir PCR NOT DETECTED 07/27/20 09:10 Nasal Influenza B PCR NOT DETECTED 07/27/20 09:10 Nasal Influenza A PCR NOT DETECTED 07/27/20 09:10 Nasal Parainfluen 1 PCR NOT DETECTED 07/27/20 09:10 Nasal Parainfluen 2 PCR NOT DETECTED 07/27/20 09:10 Nasal Parainfluen 3 PCR NOT DETECTED 07/27/20 09:10 Nasal Parainfluen 4 PCR NOT DETECTED 07/27/20 09:10 Nasal RSV (PCR) NOT DETECTED 07/27/20 09:10 Nasal B.pertussis DNA PCR NOT DETECTED 07/27/20 09:10 Nasal C.pneumoniae (PCR) NOT DETECTED 07/27/20 09:10 Kaleb Human Metapneumo PCR NOT DETECTED 07/27/20 09:10 Nasal M.pneumoniae (PCR) NOT DETECTED 07/27/20 09:10 Nasal SARS-CoV-2 (PCR) NOT DETECTED 07/27/20 09:10 ABX Reporting Has patient been on IV antibiotics over the past 48 hours?: Yes Current Medications - Current Medications Current Medications: Active Medications Acetaminophen (Acetaminophen 325 Mg Tablet) 650 mg PO Q6HR PRN PRN Reason: Pain or Fever > 38C (100.4F) Last Admin: 07/30/20 07:58 Dose: 650 mg Documented by: Azithromycin (Azithromycin 250 Mg Tablet) 250 mg PO DAILY [facility] Stop: 08/02/20 10:19 Last Admin: 07/30/20 09:14 Dose: 250 mg Documented by: Budesonide (Budesonide 0.5 Mg/2 Ml Neb) 0.5 mg INH RTBID FELIBERTO Last Admin: 07/30/20 08:44 Dose: 0.5 mg Documented by: Guaifenesin (Guaifenesin 600 Mg Tablet) 600 mg PO BID [facility] Last Admin: 07/30/20 09:15 Dose: 600 mg Documented by: Ipratropium [place] (Ipratropium 0.2 Mg/Ml Neb) 0.5 mg INH RTQID [facility] Last Admin: 07/30/20 12:04 Dose: 0.5 mg Documented by: Lactulose (Lactulose 10 Gm /15 Ml Udc) 10 gm PO TID [facility] Last Admin: 07/30/20 13:41 Dose: 10 gm Documented by: Levalbuterol HCl (Levalbuterol 1.25 Mg/3 Ml Neb) 1.25 mg INH RTQID FELIBERTO Last Admin: 07/30/20 12:04 Dose: 1.25 mg Documented by: Methylprednisolone (Methylprednisolone Succinate 40 Mg/Ml Vial) 40 mg IVP TID [facility] Last Admin: 07/30/20 13:41 Dose: 40 mg Documented by: Metoprolol Tartrate (Metoprolol Tartrate 25 Mg Tablet) 25 mg PO BID [facility] Last Admin: 07/30/20 09:14 Dose: 25 mg Documented by: Montelukast Sodium (Montelukast 10 Mg Tablet) 10 mg PO QPM [facility] Last Admin: 07/29/20 21:50 Dose: 10 mg Documented by: Morphine Sulfate (Morphine 2 Mg/Ml Carpuject) 2 mg IVP Q8HR PRN PRN Reason: Shortness of Air/Wheezing Last Admin: 07/29/20 13:36 Dose: 2 mg Documented by: Multi-Ingredient Mouthwash/Gargle (Gi Cocktail 120 Ml Bottle) 30 ml PO Q4H PRN PRN Reason: Abdominal Pain Last Admin: 07/30/20 09:36 Dose: 30 ml Documented by: Multi-Ingredient Ointment (Zinc Oxide 20% Oint 30 Gm Tube) 1 applic TOP PRN PRN PRN Reason: Skin Care Last Admin: 07/28/20 14:16 Dose: 1 applic Documented by: Nicotine (Nicotine 14 Mg Patch) 1 patch TOP Q24H [facility] Last Admin: 07/29/20 15:35 Dose: 1 patch Documented by: Nitroglycerin (Nitroglycerin Sl 0.4 Mg Tablet) 0.4 mg SL Q5MIN PRN PRN Reason: Chest Pain Ondansetron HCl (Ondansetron 4 Mg/2 Ml Vial) 4 mg IVP Q6HR PRN PRN Reason: Nausea / Vomiting Last Admin: 07/29/20 20:53 Dose: 4 mg Documented by: Pantoprazole Sodium (Pantoprazole 40 Mg Tablet) 40 mg PO QDAC [facility] Last Admin: 07/30/20 06:15 Dose: 40 mg Documented by: Multivit/Folic Acid/Iron ( Vitamin Tablet) 1 tab PO DAILYWM [facility] Last Admin: 07/30/20 07:46 Dose: 1 tab Documented by: Rivaroxaban (Rivaroxaban 10 Mg Tablet) 10 mg PO DAILY [facility] Last Admin: 07/30/20 09:14 Dose: 10 mg Documented by: Sodium Chloride (Sodium Chloride Flush 0.9% 10 Ml Syringe) 10 ml IVP PRN PRN PRN Reason: NEEDED PER PROVIDER ORDERS Sodium Chloride (Sodium Chloride Flush 0.9% 10 Ml Syringe) 10 ml IVP 0100,0900,1700 [facility] Last Admin: 07/30/20 13:41 Dose: 10 ml Documented by: Spironolactone (Spironolactone 25 Mg Tablet) 50 mg PO DAILY [facility] Last Admin: 07/30/20 09:14 Dose: 50 mg Documented by: Thiamine HCl (Thiamine 100 Mg Tablet) 100 mg PO DAILY [facility] Last Admin: 07/30/20 09:14 Dose: 100 mg Documented by: Throat Lozenges (Benzocaine/Menthol Lozenge) 1 lozenge MM Q2HR PRN PRN Reason: Throat pain Last Admin: 07/29/20 15:35 Dose: 1 lozenge Documented by: Propranolol [Inderal] 10 mg PO BID 09/21/18 Albuterol Sulfate [Proair Hfa Inhaler] 2 puffs INH Q4H PRN 05/13/20 Furosemide [Lasix] 40 mg PO DAILY 06/19/20 Montelukast [Singulair] 10 mg PO QPM 06/19/20 Rivaroxaban [Xarelto] 10 mg PO DAILY 06/19/20 Spironolactone [Aldactone] 50 mg PO DAILY 06/19/20 Tiotropium [place] [Spiriva] 1 puffs INH DAILY 06/19/20 Lactulose 15 ml PO TID 07/28/20
[2020-07-30] MEDS: NICOTINE 14 MG PATCH TOP SCH (16:43)
[2020-07-30] MEDS: FUROSEMIDE 40 MG TABLET PO SCH (19:56)
[2020-07-30] MEDS: BENZOCAINE/MENTHOL LOZENGE MM PRN (20:11)
[2020-07-30] MEDS: LEVALBUTEROL 1.25 MG/3 ML NEB INH PRN (21:18)
[2020-07-30] MEDS: MONTELUKAST 10 MG TABLET PO SCH (21:29)
[2020-07-31] MEDS: GI COCKTAIL 120 ML BOTTLE PO PRN
[2020-07-31] MEDS: ACETAMINOPHEN 325 MG TABLET PO PRN ×3 (02:25→18:05)
[2020-07-31 04:40] LABS: BASOPHILS % (AUTO) 0.1 %; EOSINOPHILS % (AUTO) 0.1 %; HCT - HEMATOCRIT 42.6 % (37.0-47.0); HGB - HEMOGLOBIN 13.7 g/dL (12.0-16.0); LYMPHOCYTES # (AUTO) 0.4 10^3/uL (1.5-3.5); LYMPHOCYTES % (AUTO) 4.5 %; MEAN CORPUSCULAR HEMOGLOBIN 33.3 pg (27.0-31.0); MEAN CORPUSCULAR HGB CONC 32.2 g/dL (32.0-36.0); MEAN CORPUSCULAR VOLUME 103.4 fL (81.0-99.0); MONOCYTES % (AUTO) 10.4 %; NEUTROPHILS # (AUTO) 7.8 10^3/uL (1.5-6.6); PLT - PLATELET COUNT 205 10^3/uL (130-450); RED BLOOD COUNT 4.12 10^6/uL (4.20-5.40); RED CELL DISTRIBUTION WIDTH 12.1 % (12.0-15.0); WHITE BLOOD COUNT 9.2 x10^3/uL (4.8-10.8)
[2020-07-31 04:43] LABS: CALCIUM 8.2 mg/dL (8.5-10.3); CREATININE 0.5 mg/dL (0.4-1.0); POTASSIUM 3.7 mmol/L (3.5-5.0)
[2020-07-31] MEDS: methylPREDNISolone SUCCINATE 40 MG/ML VIAL IVP SCH ×3 (06:16→21:23)
[2020-07-31] MEDS: LACTULOSE 10 GM /15 ML UDC PO SCH ×3 (06:16→21:23)
[2020-07-31] MEDS: PANTOPRAZOLE 40 MG TABLET PO SCH (06:16)
[2020-07-31] MEDS: THIAMINE 100 MG TABLET PO SCH (07:53)
[2020-07-31] MEDS: PRENATAL VITAMIN TABLET PO SCH (07:53)
[2020-07-31] MEDS: AZITHROMYCIN 250 MG TABLET PO SCH (07:53)
[2020-07-31] MEDS: RIVAROXABAN 10 MG TABLET PO SCH (07:53)
[2020-07-31] MEDS: guaiFENesin 600 MG TABLET PO SCH ×2 (07:54→20:13)
[2020-07-31] MEDS: SODIUM CHLORIDE FLUSH 0.9% 10 ML SYRINGE IVP SCH ×3 (07:54→23:35)
[2020-07-31] MEDS: METOPROLOL TARTRATE 25 MG TABLET PO SCH ×2 (07:54→21:24)
[2020-07-31] MEDS: FUROSEMIDE 40 MG TABLET PO SCH (07:54)
[2020-07-31] MEDS: SPIRONOLACTONE 25 MG TABLET PO SCH (07:54)
[2020-07-31] MEDS: BUDESONIDE 0.5 MG/2 ML NEB INH SCH ×2 (08:28→21:04)
[2020-07-31] MEDS: IPRATROPIUM 0.2 MG/ML NEB INH SCH ×5 (08:29→21:04)
[2020-07-31] MEDS ORDERED: IOVERSOL 320 100 ML VIAL IVP ONE ×2 (09:12→11:34)
[2020-07-31] MEDS ORDERED: IOPAMIDOL-300 50 ML VIAL ONE (09:12)
--- NOTE | 2020-07-31 11:05 | CT Report ---
PROCEDURE: Abdomen/Pelvis W INDICATIONS: left flank pain CONTRAST: IV CONTRAST: Optiray 320 ml: 100 PO CONTRAST: Isovue 300 ml50 TECHNIQUE: After the administration of IV and oral contrast, 5 mm thick sections acquired from the diaphragms to the symphysis. 5 mm thick coronal and sagittal reformats were acquired. For radiation dose reducti on, the following was used: automated exposure control, adjustment of mA and/or kV according to maci ent size. COMPARISON: 06/04/2020 FINDINGS: Image quality: Excellent. ABDOMEN: Lung bases: Trace bilateral pleural effusion are seen with bibasilar dependent atelectasis more promi nent on the right side. Heart size is normal. Atherosclerotic calcifications and coronary vessels are seen. Solid organs: Liver and spleen are normal in size and enhancement. Gallbladder is within normal evans its. Biliary system is non dilated. Pancreas enhances normally. No adrenal nodules. Kidneys demon strate normal size and enhancement, without hydronephrosis. Peritoneum and bowel: There is a small hiatal hernia. Oral contrast is seen reaching terminal ileum. No evidence of bowel obstruction. No gross abnormal bowel wall thickening or mesenteric fat stranding . No free fluid or free air. Fecal stasis throughout the colon is seen. Appendix is visualized and is within normal limits. Mild colonic diverticulosis is seen, no CT evidence of acute diverticulitis. N o abscess collection. Nodes and vessels: No retroperitoneal or mesenteric adenopathy by size criteria. Aorta and inferior vena cava are normal in size. Dense atherosclerotic calcifications throughout abdominal aorta is se en. Miscellaneous: No ventral hernias. PELVIS: Genitourinary: Bladder wall thickness is normal. Uterus and bilateral adnexa show no gross abnormal ity. Miscellaneous: No inguinal hernias or adenopathy. Bones: No suspicious bony lesions. No vertebral body compression fractures. Degenerative disc dise ase throughout lower thoracic and lumbar spine is seen more prominent at L3-4 and L4-5 levels. IMPRESSION: 1. No renal stone or hydronephrosis. Normal-appearing bilateral ureters or urinary bladder. 2. Small hiatal hernia. Mild constipation. Normal appendix. No bowel obstruction. Colonic diverticulo sis without CT evidence of acute diverticulitis. No free fluid or free air. 3. Trace bilateral pleural effusion with right worse than left bibasilar dependent atelectasis. 4. Moderate atherosclerotic disease. Reviewed by: Florencio Vuong MD on 07/31/2020 11:04 AM PDT Approved by: Florencio Vuong MD on 07/31/2020 11:04 AM PDT Station ID: [id number]
[2020-07-31] MEDS ORDERED: IOPAMIDOL-300 50 ML VIAL PO ONE (11:34)
[2020-07-31] MEDS: LEVALBUTEROL 1.25 MG/3 ML NEB INH PRN ×2 (12:02→15:47)
--- NOTE | 2020-07-31 13:47 | PROVIDER PROGRESS NOTE ---
Subjective - Prog Note Date Prog Note Date: 07/31/20 - Subjective Pt reports feeling: No change Subjective: Patient complain left flank pain in the morning. CT of abdomen and pelvis show unremarkable, No evidence for renal stone or hydronephrosis. Patient denies chest pain, fever, chill. Current Medications - Current Medications Current Medications: Active Medications Acetaminophen (Acetaminophen 325 Mg Tablet) 650 mg PO Q6HR PRN PRN Reason: Pain or Fever > 38C (100.4F) Last Admin: 07/31/20 12:30 Dose: 650 mg Documented by: Azithromycin (Azithromycin 250 Mg Tablet) 250 mg PO DAILY [facility] Stop: 08/02/20 10:19 Last Admin: 07/31/20 07:53 Dose: 250 mg Documented by: Budesonide (Budesonide 0.5 Mg/2 Ml Neb) 0.5 mg INH RTBID [facility] Last Admin: 07/31/20 08:28 Dose: 0.5 mg Documented by: Furosemide (Furosemide 40 Mg Tablet) 40 mg PO DAILY [facility] Last Admin: 07/31/20 07:54 Dose: 40 mg Documented by: Guaifenesin (Guaifenesin 600 Mg Tablet) 600 mg PO BID [facility] Last Admin: 07/31/20 07:54 Dose: 600 mg Documented by: Ipratropium [place] (Ipratropium 0.2 Mg/Ml Neb) 0.5 mg INH RTQID [facility] Last Admin: 07/31/20 12:02 Dose: 0.5 mg Documented by: Lactulose (Lactulose 10 Gm /15 Ml Udc) 10 gm PO TID [facility] Last Admin: 07/31/20 06:16 Dose: 10 gm Documented by: Levalbuterol HCl (Levalbuterol 1.25 Mg/3 Ml Neb) 1.25 mg INH Q4H PRN PRN Reason: Shortness of Air/Wheezing Last Admin: 07/31/20 12:02 Dose: 1.25 mg Documented by: Methylprednisolone (Methylprednisolone Succinate 40 Mg/Ml Vial) 40 mg IVP TID [facility] Last Admin: 07/31/20 06:16 Dose: 40 mg Documented by: Metoprolol Tartrate (Metoprolol Tartrate 25 Mg Tablet) 25 mg PO BID [facility] Last Admin: 07/31/20 07:54 Dose: 25 mg Documented by: Montelukast Sodium (Montelukast 10 Mg Tablet) 10 mg PO QPM [facility] Last Admin: 07/30/20 21:29 Dose: 10 mg Documented by: Morphine Sulfate (Morphine 2 Mg/Ml Carpuject) 2 mg IVP Q8HR PRN PRN Reason: Shortness of Air/Wheezing Last Admin: 07/29/20 13:36 Dose: 2 mg Documented by: Multi-Ingredient Mouthwash/Gargle (Gi Cocktail 120 Ml Bottle) 30 ml PO Q4H PRN PRN Reason: Abdominal Pain Last Admin: 07/31/20 00:00 Dose: 30 ml Documented by: Multi-Ingredient Ointment (Zinc Oxide 20% Oint 30 Gm Tube) 1 applic TOP PRN PRN PRN Reason: Skin Care Last Admin: 07/28/20 14:16 Dose: 1 applic Documented by: Nicotine (Nicotine 14 Mg Patch) 1 patch TOP Q24H [facility] Last Admin: 07/30/20 16:43 Dose: 1 patch Documented by: Nitroglycerin (Nitroglycerin Sl 0.4 Mg Tablet) 0.4 mg SL Q5MIN PRN PRN Reason: Chest Pain Ondansetron HCl (Ondansetron 4 Mg/2 Ml Vial) 4 mg IVP Q6HR PRN PRN Reason: Nausea / Vomiting Last Admin: 07/29/20 20:53 Dose: 4 mg Documented by: Pantoprazole Sodium (Pantoprazole 40 Mg Tablet) 40 mg PO QDAC [facility] Last Admin: 07/31/20 06:16 Dose: 40 mg Documented by: Multivit/Folic Acid/Iron ( Vitamin Tablet) 1 tab PO DAILYWM [facility] Last Admin: 07/31/20 07:53 Dose: 1 tab Documented by: Rivaroxaban (Rivaroxaban 10 Mg Tablet) 10 mg PO DAILY [facility] Last Admin: 07/31/20 07:53 Dose: 10 mg Documented by: Sodium Chloride (Sodium Chloride Flush 0.9% 10 Ml Syringe) 10 ml IVP PRN PRN PRN Reason: NEEDED PER PROVIDER ORDERS Sodium Chloride (Sodium Chloride Flush 0.9% 10 Ml Syringe) 10 ml IVP 0100,0900,1700 [facility] Last Admin: 07/31/20 07:54 Dose: 10 ml Documented by: Spironolactone (Spironolactone 25 Mg Tablet) 50 mg PO DAILY [facility] Last Admin: 07/31/20 07:54 Dose: 50 mg Documented by: Thiamine HCl (Thiamine 100 Mg Tablet) 100 mg PO DAILY [facility] Last Admin: 07/31/20 07:53 Dose: 100 mg Documented by: Throat Lozenges (Benzocaine/Menthol Lozenge) 1 lozenge MM Q2HR PRN PRN Reason: Throat pain Last Admin: 07/30/20 20:11 Dose: 1 lozenge Documented by: Propranolol [Inderal] 10 mg PO BID 09/21/18 Albuterol Sulfate [Proair Hfa Inhaler] 2 puffs INH Q4H PRN 05/13/20 Furosemide [Lasix] 40 mg PO DAILY 06/19/20 Montelukast [Singulair] 10 mg PO QPM 06/19/20 Rivaroxaban [Xarelto] 10 mg PO DAILY 06/19/20 Spironolactone [Aldactone] 50 mg PO DAILY 06/19/20 Tiotropium [place] [Spiriva] 1 puffs INH DAILY 06/19/20 Lactulose 15 ml PO TID 07/28/20 Objective - Vital Signs/Intake & Output Vital Signs: Vital Signs x48h Temp Pulse Pulse Pulse Pulse Resp BP 07/31/20 12:19 36.2 C L 86 20 07/31/20 10:50 97 96 07/31/20 08:37 85 20 07/31/20 08:12 36.5 C 86 18 07/31/20 07:54 121/64 BP BP BP BP Pulse Ox 07/31/20 12:19 115/60 90 L 07/31/20 10:50 115/64 112/52 L 07/31/20 08:37 07/31/20 08:12 121/64 90 L 07/31/20 07:54 Intake & Output: Intake & Output 07/28/20 07/29/20 07/30/20 07/31/20 23:59 23:59 23:59 23:59 Intake Total 3435.200 1980.83 1400 450 Output Total 1150 2150 1150 300 Balance 2285.200 -169.17 250 150 - Objective General Appearance: positive: No acute distress, Alert. negative: Lethargic Eyes Bilateral: positive: Normal inspection, PERRL, No lid inflammation ENT: positive: ENT inspection nml, No signs of dehydration. negative: Purulent nasal drainage Neck: positive: Nml inspection, Trachea midline. negative: Thyromegaly, Tra cheal deviation Respiratory: positive: Chest non-tender, No respiratory distress, Rales. negative: Wheezes Cardiovascular: positive: Regular rate & rhythm, No murmur. negative: Tachycardia, Bradycardia, Systolic murmur, Diastolic murmur Peripheral Pulses: 2+ Radial (R), 2+ Radial (L) Abdomen: positive: Non-tender, Nml bowel sounds, No distention. negative: Tenderness Back: positive: Nml inspection, CVA tenderness (L). negative: CVA tenderness (R) Skin: positive: Color nml, Warm, Dry. negative: Cyanosis, Diaphoresis Extremities: positive: Non-tender, Nml appearance. negative: Pedal edema Neurologic/Psychiatric: positive: Oriented x3, Sensation nml. negative: Weakness, Sensory loss, Facial droop, Slurred/abnml speech, Depressed mood/affect - Lab Results Fish Bones: 07/31/20 04:20 07/31/20 04:20 Other Labs: Lab Results x24hrs 07/31/20 07/31/20 Range/Units 04:20 04:20 WBC 9.2 (4.8-10.8) x10^3/uL RBC 4.12 L (4.20-5.40) 10^6/uL Hgb 13.7 (12.0-16.0) g/dL Hct 42.6 (37.0-47.0) % MCV 103.4 H (81.0-99.0) fL MCH 33.3 H (27.0-31.0) pg MCHC 32.2 (32.0-36.0) g/dL RDW 12.1 (12.0-15.0) % Plt Count 205 (130-450) 10^3/uL MPV 10.0 (7.9-10.8) fL Neut # (Auto) 7.8 H (1.5-6.6) 10^3/uL Lymph # (Auto) 0.4 L (1.5-3.5) 10^3/uL [place] # (Auto) 1.0 (0.0-1.0) 10^3/uL Eos # (Auto) 0.0 (0.0-0.7) 10^3/uL Baso # (Auto) 0.0 (0.0-0.1) 10^3/uL Absolute Nucleated RBC 0.00 x10^3/uL Nucleated RBC % 0.0 /100WBC Sodium 134 L (135-145) mmol/L Potassium 3.7 (3.5-5.0) mmol/L Chloride 84 L (101-111) mmol/L Carbon Dioxide 41 H* (21-32) mmol/L Anion Gap 9.0 (6-13) BUN 19 (6-20) mg/dL Creatinine 0.5 (0.4-1.0) mg/dL Estimated GFR (MDRD) 121 (>89) Glucose 148 H (70-100) mg/dL Calcium 8.2 L (8.5-10.3) mg/dL ABX Reporting Has patient been on IV antibiotics over the past 48 hours?: Yes Assessment/Plan - Problem List (1) Acute on chronic respiratory failure with hypoxia and hypercapnia Impression: 07/31 Patient is alert orientated plus 4, carbon dioxide is 41 in lab test. Patient has 90% sats on 2 L oxygen by nasal cannula. Patient is on 1 L oxygen at home for her COPD. Patient likely needed more oxygen for his COPD when he is discharged. 07/30 pt had 93% on 2.5 lpm of O2. pt usually took 1 lpm of O2 at home. pt has no acute respiratory distress. We will continue intravenous Solu-Medrol, continue breathing treatment, continue supplemental oxygen as needed. pt had elevated serum carbon Dioxide, we will remain pt's O2 sats >88%, slowly reduced supplement of O2 dosage as pt can tolerate, hold Ativan now and hold Lasix. CXR reveal stable. pt Feel comfortable, She has no acute respiratory distress now. Patient has history of hypercapnia. ABG show patient had normal pH. Patient is alert and orientated +4. Patient is DNR CODE STATUS. We will continue treat underlying COPD exacerbation, Anxiety. Supplemental oxygen as needed. (2) COPD exacerbation Conclusion/Plan: 07/31 Patient has 90% sats on 2 L oxygen by nasal cannula and stable. Continue intravenous solu-metro, breath treatment, supplemental oxygen as needed, plan to have desat study before d/c, pt may need increase O2 dosage in home. CTA show patient no PE, mild centralobular emphysema. Patient taken 1 L oxygen in the home for her chronic COPD. We will reduce patient Solu-Medrol to 40 3 times daily. Add morphine as needed, Continue INH treatment, Supplemental oxygen as needed. (3)pulmonary hypertension ECHO reveals pt has RVSP 51 mmHG, moderate abnormal right ventricle blood pressure (3)chest pain 07/31, pt denies any more chest pain. troponin was slight and flat, ECHO reveal 70% EF without Regional wall motion abnormality. it Is likely atypic chest pain, patient feel better when she was given GI cocktail. Patient may follow-up outpatient stress test. 07/30 pt Report left anterior chest pain. Troponins show patient had slightly elevated troponin but repeated troponin show flat. pt report GI cocktail did help release some of his chest pain. Repeat EKG has no clear picture different from previous one. pt was resumed her home Xarelto. pt was given once Aspirin, PRN nitro, continue Morphine PRN, supplement of O2 as needed, order ECHO is pending. it is more likely atypical chest pain. refer pt to have stress test as out-pt, continue tele monitor pt, change pt's propranolol to Metoprolol. lipid panel test is negative for HLD. (4) Hyponatremia Na 134 today, Nearly resolved (5) Hypokalemia K is 3.4, replaced (6) Cirrhosis with alcoholism with asterixis Conclusion/Plan: 07/30 Strongly advised the patient quitted alcohol, do not drink alcohol again. pt report she had new hand asterixis which is likely caused by her recently drink alcohol again and worsening her liver cirrhosis and failure. Patient was recently in a rehab program and was discharged on 07/21/20. However the patient went back to drinking. [facility] protocol initiated. Multivitamins IV initially for pt, switch to PO and B1 (7) GERD (gastroesophageal reflux disease) Conclusion/Plan: Protonix 40 mg p.o. daily (8) Hypertension Conclusion/Plan: stable, continue On propanolol 10 mg p.o. twice daily and Spironolactone (9) History of pulmonary embolism Conclusion/Plan: no PE in CTA. continue On Xarelto 10 mg p.o. daily (10) Leukocytosis Conclusion/Plan: 07/31 WBC is in the normal range Likely reactive. pt has IV of steroid, Will monitor.
[2020-07-31] MEDS: SODIUM CHLORIDE FLUSH 0.9% 10 ML SYRINGE IVP PRN ×2 (13:53→21:30)
[2020-07-31] MEDS: NICOTINE 14 MG PATCH TOP SCH (16:20)
[2020-07-31] MEDS: ZINC OXIDE 20% OINT 30 GM TUBE TOP PRN (18:08)
[2020-07-31] MEDS: MONTELUKAST 10 MG TABLET PO SCH (20:13)
[2020-07-31] MEDS: LEVALBUTEROL 1.25 MG/3 ML NEB INH SCH (21:04)
[2020-08-01 05:01] LABS: BASOPHILS % (AUTO) 0.1 %; HCT - HEMATOCRIT 40.6 % (37.0-47.0); HGB - HEMOGLOBIN 13.7 g/dL (12.0-16.0); LYMPHOCYTES # (AUTO) 0.5 10^3/uL (1.5-3.5); LYMPHOCYTES % (AUTO) 5.2 %; MEAN CORPUSCULAR HGB CONC 33.7 g/dL (32.0-36.0); MEAN CORPUSCULAR VOLUME 100.7 fL (81.0-99.0); MEAN PLATELET VOLUME 10.3 fL (7.9-10.8); MONOCYTES # (AUTO) 0.8 10^3/uL (0.0-1.0); MONOCYTES % (AUTO) 7.2 %; NEUTROPHILS % (AUTO) 86.1 %; PLT - PLATELET COUNT 209 10^3/uL (130-450); RED BLOOD COUNT 4.03 10^6/uL (4.20-5.40); WHITE BLOOD COUNT 10.4 x10^3/uL (4.8-10.8)
[2020-08-01 05:08] LABS: CALCIUM 8.1 mg/dL (8.5-10.3); CREATININE 0.4 mg/dL (0.4-1.0); POTASSIUM 3.2 mmol/L (3.5-5.0)
[2020-08-01] MEDS: PANTOPRAZOLE 40 MG TABLET PO SCH (06:13)
[2020-08-01] MEDS: LACTULOSE 10 GM /15 ML UDC PO SCH ×2 (06:13→14:21)
[2020-08-01] MEDS: methylPREDNISolone SUCCINATE 40 MG/ML VIAL IVP SCH ×2 (06:14→14:22)
[2020-08-01] MEDS ORDERED: POTASSIUM CHLORIDE 20 MEQ TABLET PO ONE (07:10)
[2020-08-01] MEDS: IPRATROPIUM 0.2 MG/ML NEB INH SCH ×2 (07:20→11:15)
[2020-08-01] MEDS: BUDESONIDE 0.5 MG/2 ML NEB INH SCH (07:20)
[2020-08-01] MEDS: LEVALBUTEROL 1.25 MG/3 ML NEB INH PRN ×2 (07:21→11:15)
--- NOTE | 2020-08-01 08:06 | XRAY Report ---
PROCEDURE: Chest 1 View X-Ray INDICATIONS: sob TECHNIQUE: One view of the chest was acquired. COMPARISON: Chest x-ray 07/29/2020 FINDINGS: Surgical changes and devices: None. Lungs and pleura: No pleural effusions or pneumothorax. Lungs are clear. Lungs are hyperinflated s uggestive COPD. Mediastinum: Mediastinal contours appear normal. Heart size is normal. Bones and chest wall: No suspicious bony lesions. Overlying soft tissues appear unremarkable. IMPRESSION: No acute pulmonary process. Reviewed by: Berna Green MD on 08/01/2020 8:05 AM PDT Approved by: Berna Green MD on 08/01/2020 8:05 AM PDT Station ID: [id number]
[2020-08-01] MEDS: METOPROLOL TARTRATE 25 MG TABLET PO SCH (10:37)
[2020-08-01] MEDS: guaiFENesin 600 MG TABLET PO SCH (10:40)
[2020-08-01] MEDS: SPIRONOLACTONE 25 MG TABLET PO SCH (10:40)
[2020-08-01] MEDS: PRENATAL VITAMIN TABLET PO SCH (10:40)
[2020-08-01] MEDS: FUROSEMIDE 40 MG TABLET PO SCH (10:40)
[2020-08-01] MEDS: THIAMINE 100 MG TABLET PO SCH (10:41)
[2020-08-01] MEDS: RIVAROXABAN 10 MG TABLET PO SCH (10:41)
[2020-08-01] MEDS: AZITHROMYCIN 250 MG TABLET PO SCH (10:41)
[2020-08-01] MEDS: SODIUM CHLORIDE FLUSH 0.9% 10 ML SYRINGE IVP SCH (10:42)
[2020-08-01 11:50] VITALS: BP 112/74
--- NOTE | 2020-08-01 12:03 | Discharge Plan ---
"Discharge Plan for SNF / LONG TERM - Discharge Plan And Transition Orders Problem Reviewed?: Yes Disposition: 03 SNF DC/Xfer Condition: Stable Allergies and Adverse Reactions: Allergies Allergy/AdvReac Type Severity Reaction Status Date / Time Latex, Natural Rubber Allergy Rash Verified 07/27/20 08:34 lisinopril Allergy Respiratory Verified 07/27/20 08:34 Health Concerns: COPD exacerbation, alcoholic cirrhosis Plan of Treatment: Advise pt the importance of quitting cigarette smoking at the basis pt has hx severe of COPD and home oxygen usage. pt is prescribed short term of steroid, continue supplement of O2 as needed, continue home breath treatment. Pt has hx of alcoholic cirrhosis. It is very important for pt to quit alcohol at this point. pt may continue PT/OT at SNF Care Goals: stabilization and improvement of her medical conditions Assessment: discussed the care plan with pt, answered her questions, she understood. - SNF / [facility] Transition Orders Admit to (Facility): [facility] Under the care of (Name): Medical provider of [facility] Discharge Diagnosis: acute on chronic respiratory failure with hypoxia and hypercapnia, COPD exacerbation, pulmonary hypertension, alcoholic cirrhosis, HTN, GERD, hx of PE Medicare Certification Statement: I certify that [facility] care is medically necessary on a continuing basis for any of the conditions for which she/he is receiving care [facility]. Notify PCP of admission and forward orders to primary provider for signature. Weight on admission and: Daily Call PCP immediately if weight increases by: 2 kg Other Notification Orders: Call PCP immediately if patient develops dyspnea, chest pain/tightness or edema. House Bowel Program: Yes Additional Bowel Program Orders: If no BM after 2 days, nurse may give M.O.M. 30ml PO PRN and/or ducolax Supp 1 AL and/or MARGARET 250mg P.O., and/or senna 1-2 tabs PO. On day 3 nurse may give repeat above order until residents constipation is resolved. Annual Influenza Vaccine (between Oct 08 and May 07): Yes Two-step PPD per [facility] [phone] or approved exception documents: Yes Treatments & Other Orders: Advise pt the importance of quitting cigarette smoking at the basis pt has hx severe of COPD and home oxygen usage. pt is prescribed short term of steroid, continue supplement of O2 as needed, continue home breath treatment. Pt has hx of alcoholic cirrhosis. It is very important for pt to quit alcohol at this point. pt may continue PT/OT at SNF Oxygen Orders: 2-3 LPM of O2 by NC or as needed Medication Orders: PLEASE REFER TO THE DISCHARGE MEDICATION LIST. Insulin Orders?: No - Medications New Prescriptions: predniSONE [Deltasone] 20 mg PO [id number] #21 tab Pnv No.95/Ferrous Fum/Folic AC [ Tablet] 1 each PO DAILY #30 tablet Thiamine [Vitamin B-1] 100 mg PO DAILY #30 tablet Azithromycin [Zithromax] 250 mg PO DAILY #4 tablet - Diet Type: Geriatric Texture: Regular Liquids: Thin May have monthly special meal: Yes - Therapies | Activity Therapy: Evaluation | Treat if indicated: PT, OT Rehabilitation Potential: Maximize functional status Activity: Activity as Tolerated"
--- NOTE | 2020-08-01 12:34 | DISCHARGE SUMMARY ---
Discharge Summary Admit Date: 07/27/20 Discharge Date: 08/01/20 Discharging Provider: Sebastian Jennings Primary Care Provider: Aida Blankenship Condition at Discharge: Stable Discharge Disposition: SNF DC/Xfer Discharge Facility Name: [facility] - DIAGNOSES Discharge Diagnoses with Status of Each Condition: (1) Acute on chronic respiratory failure with hypoxia and hypercapnia pt feel much better, she had good appetite. hypercapnia is great improved. pt now need 3 liter of O2 to have 92% sats. pt has no acute respiratory distress. Patient is discharged to [facility] (2) COPD exacerbation Improved. Patient has no active respiratory distress. Patient is prescribed prednisone for 10 days. strongly advised the patient quit cigarette smoking. pt is prescribed 4 days of Azithromycin. Patient may continue follow-up with her paleologist as outpatient (3)pulmonary hypertension ECHO reveals pt has RVSP 51 mmHG, moderate abnormal right ventricle blood pressure. discuss Echo result with the patient, strongly advised the patient quit cigarette smoker (3)chest pain resolved. it is likely atypical chest pain. pt may have out-pt Stress test as well (4) Hyponatremia Chronic, stable, sodium is 131 (5) Hypokalemia replaced. P is 3.2 today (6) Alcoholic cirrhosis Patient was reported to resume her alcohol habits. Strongly Advised the patient quit alcohol. Patient is prescribed and vitamin B-1. (7) GERD (gastroesophageal reflux disease) Stable (8) Hypertension stable (9) History of pulmonary embolism stable, continue home meds. - HPI History of Present Illness: refer from Dr. Vogel's HPI on 07/27/20 Patient is a 70-year-old female with medical history significant for Hypertension, hyperlipidemia, alcohol abuse, DVT/PE on Xarelto, alcoholic cirrhosis and COPD on 1 L of oxygen at baseline who presented to the ED with complaint of worsening dyspnea and productive cough of whitish sputum. She always has some baseline dyspnea but states that it became unbearable today. Also she has been feeling very weak because she has been unable to keep anything down. However it was reported that she has been consuming alcohol despite just being discharged from a rehab program on Tuesday07/21/20. On presentation she was tachycardic with a heart rate of 116 and oxygen saturation 88%. She was given a breathing treatment in the ED that significantly improved her work of breathing. Further work-up included BMP which showed a sodium level of 121 and potassium of 2.6. She was presented for admission for further treatment. At bedside she denied chest pain, nausea, vomiting or fever. She reported mild abdominal pain associated with eating and chills. - HOSPITAL COURSE Hospital Course: Patient was Admitted for shortness of breathing, cough With sputum, with hx of Alcoholic cirrhosis with continuing alcohol drunk. Patient was found to have COPD exacerbation with current cigarette smoker Patient was also found to have acute on chronic respiratory failure with hypoxia and hypercapnia. Patient also develop chest pain. Patient was treated with intravenous steroid, azithromycin, breathing treatment, supplement of O2. After treatment, patient feel much better, patient has stable oxygen saturation Without acute respiratory distress. Patient had PT and OT evaluation and treatment, patient was recommended d/c to SNF for continued training and strength. - ALLERGIES Allergies/Adverse Reactions: Allergies Allergy/AdvReac Type Severity Reaction Status Date / Time Latex, Natural Rubber Allergy Rash Verified 07/27/20 08:34 lisinopril Allergy Respiratory Verified 07/27/20 08:34 - MEDICATIONS Home Medications: Ambulatory Orders Medication Instructions Recorded Confirmed Propranolol [Inderal] 10 mg PO BID 09/21/18 07/27/20 Albuterol Sulfate [Proair Hfa 2 puffs INH Q4H PRN 05/13/20 07/27/20 Inhaler] Furosemide [Lasix] 40 mg PO DAILY 06/19/20 07/27/20 Montelukast [Singulair] 10 mg PO QPM 06/19/20 07/27/20 Rivaroxaban [Xarelto] 10 mg PO DAILY 06/19/20 07/27/20 Spironolactone [Aldactone] 50 mg PO DAILY 06/19/20 07/27/20 Tiotropium [place] [Spiriva] 1 puffs INH DAILY 06/19/20 07/27/20 Nicotine 14 mg Patch [Nicoderm] 1 patch TOP DAILY patch 06/22/20 07/27/20 Pantoprazole [Protonix] 40 mg PO QDAC #40 tablet 06/22/20 07/27/20 guaiFENesin [Mucinex] 600 mg PO BID tablet 06/22/20 07/27/20 Lactulose 15 ml PO TID 07/28/20 07/28/20 Azithromycin [Zithromax] 250 mg PO DAILY #4 tablet 08/01/20 Pnv No.95/Ferrous Fum/Folic AC 1 each PO DAILY #30 tablet 08/01/20 [ Tablet] Thiamine [Vitamin B-1] 100 mg PO DAILY #30 tablet 08/01/20 predniSONE [Deltasone] 20 mg PO [id number] #21 tab 08/01/20 - PHYSICAL EXAM AT DISCHARGE General Appearance: positive: No acute distress, Alert. negative: Lethargic Eyes Bilateral: positive: Normal inspection, PERRL, No lid inflammation ENT: positive: ENT inspection nml, No signs of dehydration. negative: Purulent nasal drainage Neck: positive: Nml inspection, Trachea midline. negative: Thyromegaly, Tracheal deviation Respiratory: positive: Chest non-tender, No respiratory distress, Other (Significantly diminished bilaterally lung sound). negative: Wheezes Cardiovascular: positive: Regular rate & rhythm, No murmur. negative: Tachyc ardia, Bradycardia, Systolic murmur, Diastolic murmur Peripheral Pulses: positive: 2+ Abdomen: positive: Non-tender, Nml bowel sounds, No distention. negative: Tenderness Back: positive: Nml inspection Skin: positive: Color nml, Warm, Dry. negative: Cyanosis Extremities: positive: Non-tender, Full ROM, Nml appearance. negative: Calf tenderness Neurologic/Psychiatric: positive: Oriented x3, Motor nml, Sensation nml, Mood/affect nml. negative: Weakness, Sensory loss, Facial droop, Slurred/abnml speech, Depressed mood/affect - LABS Result Diagrams: 08/01/20 04:20 08/01/20 04:20 - FOLLOW UP Follow Up: Advise pt the importance of quitting cigarette smoking at the basis pt has hx severe of COPD and home oxygen usage. pt is prescribed short term of steroid, co ntinue supplement of O2 as needed, continue home breath treatment. Pt has hx of alcoholic cirrhosis. It is very important for pt to quit alcohol at this point. pt may continue PT/OT at SNF - TIME SPENT Time Spent in Discharge (Minutes): 30
[2020-08-01 13:17] LABS: B. PARAPERTUSSIS- RESP PCR PAN NOT DETECTED; B. PERTUSSIS- RESP PCR PANEL NOT DETECTED; C. PNEUMONIAE- RESP PCR PANEL NOT DETECTED; CORONAVIRUS 229E-RESP PCR NOT DETECTED; CORONAVIRUS HKU1-RESP PCR NOT DETECTED; CORONAVIRUS NL63-RESP PCR NOT DETECTED; CORONAVIRUS OC43-RESP PCR NOT DETECTED; HUMAN METAPNEUMOVIRUS NOT DETECTED; INFLUENZA A- RESP PCR PANEL NOT DETECTED; INFLUENZA B - RESP PCR PANEL NOT DETECTED; M. PNEUMONIAE- RESP PCR PANEL NOT DETECTED; PARAINFLUENZA VIRUS 1 NOT DETECTED; PARAINFLUENZA VIRUS 2 NOT DETECTED; PARAINFLUENZA VIRUS 3 NOT DETECTED; PARAINFLUENZA VIRUS 4 NOT DETECTED; RHINOVIRUS/ENTEROVIRUS NOT DETECTED; RSV- RESP PCR PANEL NOT DETECTED; SARS-CoV-2 -RESP PCR PANEL NOT DETECTED
== END 2020-08-01 14:45 | DRG 189 ==
LOC: ED 08:14 → MS2 14:17
PROVIDERS: ADMIT Internal Medicine; ATTEND Nurse Practitioner Gerontology
DX: J96.22 Acute and chronic respiratory failure with hypercapnia (principal); E43 Unspecified severe protein-calorie malnutrition; E87.1 Hypo-osmolality and hyponatremia; J44.1 Chronic obstructive pulmonary disease with (acute) exacerbation; F17.200 Nicotine dependence, unspecified, uncomplicated; Z68.1 Body mass index [BMI] 19.9 or less, adult; J43.2 Centrilobular emphysema; J96.21 Acute and chronic respiratory failure with hypoxia; E78.00 Pure hypercholesterolemia, unspecified; F17.210 Nicotine dependence, cigarettes, uncomplicated; K70.30 Alcoholic cirrhosis of liver without ascites; K70.40 Alcoholic hepatic failure without coma; F10.20 Alcohol dependence, uncomplicated; R07.89 Other chest pain; E87.6 Hypokalemia; I27.20 Pulmonary hypertension, unspecified; K21.9 Gastro-esophageal reflux disease without esophagitis; I10 Essential (primary) hypertension; E83.51 Hypocalcemia; K59.00 Constipation, unspecified; F41.9 Anxiety disorder, unspecified; D72.829 Elevated white blood cell count, unspecified; T38.0X5A Adverse effect of glucocorticoids and synthetic analogues, initial encounter; E78.5 Hyperlipidemia, unspecified; M19.90 Unspecified osteoarthritis, unspecified site; M81.0 Age-related osteoporosis without current pathological fracture; G89.29 Other chronic pain; M54.9 Dorsalgia, unspecified; R32 Unspecified urinary incontinence; Z20.822 Contact with and (suspected) exposure to COVID-19; Z66 Do not resuscitate; Z99.81 Dependence on supplemental oxygen; Z79.51 Long term (current) use of inhaled steroids; Z79.01 Long term (current) use of anticoagulants; Z79.899 Other long term (current) drug therapy; Z86.711 Personal history of pulmonary embolism; Z85.3 Personal history of malignant neoplasm of breast; Z86.718 Personal history of other venous thrombosis and embolism
CPT/HCPCS: 36415; 36600; 71045; 71275; 74177; 80048; 80053; 80061; 82310; 82803; 83690; 83735; 83880; 84484; 85025; 85379; 87070; 87205; 87631; 93005; 93306; 94640; 96365; 96375; 97161; 97165; 97530; 99285; A9270; J2060; J3411; J7626; Q9967; 0202U; 83721

== ENCOUNTER 2021-07-02 23:31 | Observation (INO) | payer MEDICARE, OTHER ==
--- OUTSIDE RECORDS SUMMARY | 2021-07-02 23:45 | EXTERNAL MEDICAL SUMMARY RPT | Continuity of Care Document ---
:1950 Author Organization [place] Address [address] [phone] Phone Allergies No information. Encounters No information. Medications No information. Problems date description facility [id number] Chronic obstructive pulmonary disease, [facility] unspecified [id number] Alcohol dependence with withdrawal, [facility] uncomplicated Results No information.
[2021-07-02] MEDS ORDERED: IPRATROPIUM/ALBUTEROL 3 ML NEB INH STA (23:53)
[2021-07-03] MEDS ORDERED: DEXAMETHASONE 10 MG/ML VIAL IVP STA (00:03)
[2021-07-03] MEDS ORDERED: SODIUM CHLORIDE 0.9% 500 ML IV STA (00:03)
[2021-07-03] MEDS ORDERED: KETOROLAC 15 MG/ML VIAL IVP STA (00:03)
--- NOTE | 2021-07-03 00:04 | ED Physician Documentation ---
PD HPI DYSPNEA - Stated complaint Stated Complaint: SOA/CHEST PX - Chief complaint Chief Complaint: Resp - History obtained from History obtained from: Patient, Family - History of Present Illness Timing - onset: Today Timing - onset during: Rest Timing - duration: Hours Timing - details: Abrupt onset, Still present Inciting event(s): URI Improved by: O2, Inhaler/neb, Steroids, Rest, Sitting up Worsened by: Exertion, Coughing Associated symptoms: Cough, Wheezing, Chest pain / discomfort Similar symptoms before: Diagnosis (COPD) Recently seen: Emergency Dept (last month for exacerbation of COPD) - Additional information Additional information: 71-year-old female with a history of COPD on oxygen at home and a history of alcoholic cirrhosis continues to smoke and drink and she has developed increased dyspnea this evening including some chest pain. She has had these symptoms previously with exacerbation of COPD. She was recently seen in the emergency department about 7 weeks ago with similar exacerbation. Review of Systems Constitutional: reports: Fatigue, Sweats. denies: Fever Eyes: denies: Decreased vision Ears: denies: Ear pain Nose: reports: Congestion. denies: Rhinorrhea / runny nose Throat: denies: Sore throat Cardiac: reports: Chest pain / pressure. denies: Palpitations, Pedal edema, Calf pain Respiratory: reports: Dyspnea, Cough, Wheezing GI: reports: Abdominal Pain. denies: Nausea, Vomiting : denies: Dysuria, Frequency PD PAST MEDICAL HISTORY - Past Medical History Cardiovascular: Hypertension, High cholesterol, Deep vein thrombosis, Pulmonary embolism, Murmur, Other Respiratory: COPD, Emphysema Neuro: None, Other Endocrine/Autoimmune: None GI: Cirrhosis HR DIRECTOR: Breast cancer, Other : Incontinence HEENT: None Psych: Depression, Anxiety Musculoskeletal: Osteoarthritis, Osteoporosis, Chronic back pain Derm: None - Past Surgical History Past Surgical History: Yes General: Colonoscopy, EGD /HR DIRECTOR: Other - Present Medications Home Medications: Ambulatory Orders Medication Instructions Recorded Confirmed Propranolol [Inderal] 10 mg PO BID 09/21/18 07/03/21 Albuterol Sulfate [Proair Hfa 2 puffs INH Q4H PRN 05/13/20 07/03/21 Inhaler] Furosemide [Lasix] 40 mg PO DAILY 06/19/20 07/03/21 Montelukast [Singulair] 10 mg PO QPM 06/19/20 07/03/21 Rivaroxaban [Xarelto] 10 mg PO DAILY 06/19/20 07/03/21 Spironolactone [Aldactone] 50 mg PO DAILY 06/19/20 07/03/21 Tiotropium [place] [Spiriva] 1 puffs INH DAILY 06/19/20 07/03/21 Nicotine 14 mg Patch [Nicoderm] 1 patch TOP DAILY patch 06/22/20 07/03/21 Pantoprazole [Protonix] 40 mg PO QDAC #40 tablet 06/22/20 07/03/21 Lactulose 15 ml PO TID 07/28/20 07/03/21 Pnv No.95/Ferrous Fum/Folic AC 1 each PO DAILY #30 tablet 08/01/20 07/03/21 [ Tablet] Thiamine [Vitamin B-1] 100 mg PO DAILY #30 tablet 08/01/20 07/03/21 - Allergies Allergies/Adverse Reactions: Allergies Allergy/AdvReac Type Severity Reaction Status Date / Time Latex, Natural Rubber Allergy Rash Verified 07/02/21 23:44 lisinopril Allergy Respiratory Verified 07/02/21 23:44 - Social History Does the pt smoke?: Yes Smoking Status: Current every day smoker Does the pt drink ETOH?: Yes Does the pt have substance abuse?: No - Immunizations Immunizations are current?: Yes - POLST Patient has POLST: No POLST Status: DNR (Please see advance care planning discussion) PD ED PE NORMAL - Vitals Vital signs reviewed: Yes (tachypneic, hypertensive and hypoxic) - General General: Other (Thin 71-year-old female is struggling for a breath and talks in short sentences.) - HEENT HEENT: Atraumatic, PERRL, EOMI, Other (Lips are cyanotic) - Neck Neck: Supple, no meningeal sign, No bony TTP - Cardiac Cardiac: RRR, No murmur - Respiratory Respiratory: Other (Tachypneic at rest with fine tight wheezes throughout and symmetric) - Abdomen Abdomen: Soft, Other (Mild tenderness along the costal margin) - Back Back: No CVA TTP, No spinal TTP - Derm Derm: Normal color, Warm and dry, No rash - Extremities Extremities: No deformity, No edema - 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, No motor deficit, No sensory deficit, Normal speech Eye Opening: Spontaneous Motor: Obeys Commands Verbal: Oriented GCS Score: 15 - Psych Psych: Normal mood, Normal affect Results - Vitals Vitals: Vital Signs - 24 hr 07/02/21 07/02/21 07/02/21 23:44 23:55 23:56 Temperature 36.5 C Heart Rate 100 110 H 110 H Respiratory 30 H 22 25 H Rate Blood Pressure 180/90 H 182/91 H O2 Saturation 86 L 96 07/03/21 07/03/21 07/03/21 00:20 00:25 00:26 Temperature Heart Rate 108 H Respiratory 24 Rate Blood Pressure 163/120 H O2 Saturation 100 99 07/03/21 07/03/21 07/03/21 01:02 01:40 01:49 Temperature Heart Rate 107 H 95 99 Respiratory 22 20 30 H Rate Blood Pressure 138/68 H O2 Saturation 98 95 07/03/21 07/03/21 02:37 04:56 Temperature Heart Rate 101 H 101 H Respiratory 22 19 Rate Blood Pressure 150/107 H 144/99 H O2 Saturation 97 91 L Oxygen O2 Source Room air Oxygen Flow Rate 5 - Labs Labs: Laboratory Tests 07/02/21 07/02/21 07/03/21 23:50 23:50 00:20 WBC 11.1 H RBC 4.36 Hgb 15.2 Hct 45.9 MCV 105.3 H MCH 34.9 H MCHC 33.1 RDW 13.2 Plt Count 313 MPV 11.1 H Neut # (Auto) 7.1 H Lymph # (Auto) 2.6 [place] # (Auto) 1.1 H Eos # (Auto) 0.2 Baso # (Auto) 0.2 H Absolute Nucleated RBC 0.00 Nucleated RBC % 0.0 Bld Gas Analysis Time Sample Site ABG pH ABG pCO2 ABG pO2 ABG HCO3 ABG Total CO2 ABG O2 Saturation ABG Base Excess Lance Test VBG pH VBG pCO2 VBG pO2 VBG HCO3 VBG Total CO2 VBG O2 Saturation VBG Base Excess O2 Delivery Device O2 Liters/Min Sodium Potassium Chloride Carbon Dioxide Anion Gap BUN Creatinine Estimated GFR (MDRD) Glucose Calcium Total Bilirubin AST ALT Alkaline Phosphatase B-Natriuretic Peptide 69 Total Protein Albumin Globulin Albumin/Globulin Ratio Lipase Nasal Adenovirus (PCR) NOT DETECTED Nasal B. parapertussis DNA (PCR) NOT DETECTED Nasal Coronavir 229E PCR NOT DETECTED Nasal Coronavir HKU1 PCR NOT DETECTED Nasal Coronavir NL63 PCR NOT DETECTED Nasal Coronavir OC43 PCR NOT DETECTED Nasal Enterovir/Rhinovir PCR NOT DETECTED Nasal Influenza B PCR NOT DETECTED Nasal Influenza A PCR NOT DETECTED Nasal Parainfluen 1 PCR NOT DETECTED Nasal Parainfluen 2 PCR NOT DETECTED Nasal Parainfluen 3 PCR NOT DETECTED Nasal Parainfluen 4 PCR NOT DETECTED Nasal RSV (PCR) NOT DETECTED Nasal B.pertussis DNA PCR NOT DETECTED Nasal C.pneumoniae (PCR) NOT DETECTED [place]aleb Human Metapneumo PCR NOT DETECTED Nasal M.pneumoniae (PCR) NOT DETECTED Nasal SARS-CoV-2 (PCR) NOT DETECTED 07/03/21 07/03/21 07/03/21 00:29 00:29 03:12 WBC RBC Hgb Hct MCV MCH MCHC RDW Plt Count MPV Neut # (Auto) Lymph # (Auto) [place] # (Auto) Eos # (Auto) Baso # (Auto) Absolute Nucleated RBC Nucleated RBC % Bld Gas Analysis Time 0317 Sample Site RIGHT BRACHIAL ABG pH 7.32 L ABG pCO2 66 H* ABG pO2 106 H ABG HCO3 32.9 H ABG Total CO2 34.9 H ABG O2 Saturation 98 ABG Base Excess 4.6 H Lance Test POSITIVE VBG pH 7.233 L VBG pCO2 83.4 H VBG pO2 54.7 H VBG HCO3 34.4 H VBG Total CO2 36.9 H VBG O2 Saturation 84.9 H VBG Base Excess 3.7 H O2 Delivery Device NASAL CANNULA O2 Liters/Min 3.00 Sodium 144 Potassium 4.1 Chloride 100 L Carbon Dioxide 33 H Anion Gap 11.0 BUN < 5 L Creatinine 0.3 L Estimated GFR (MDRD) 218 Glucose 108 H Calcium 8.9 Total Bilirubin 0.8 AST 63 H ALT 29 Alkaline Phosphatase 129 H B-Natriuretic Peptide Total Protein 6.7 Albumin 3.5 Globulin 3.2 Albumin/Globulin Ratio 1.1 Lipase 32 Nasal Adenovirus (PCR) Nasal B. parapertussis DNA (PCR) Nasal Coronavir 229E PCR Nasal Coronavir HKU1 PCR Nasal Coronavir NL63 PCR Nasal Coronavir OC43 PCR Nasal Enterovir/Rhinovir PCR Nasal Influenza B PCR Nasal Influenza A PCR Nasal Parainfluen 1 PCR Nasal Parainfluen 2 PCR Nasal Parainfluen 3 PCR Nasal Parainfluen 4 PCR Nasal RSV (PCR) Nasal B.pertussis DNA PCR Nasal C.pneumoniae (PCR) Kaleb Human Metapneumo PCR Nasal M.pneumoniae (PCR) Nasal SARS-CoV-2 (PCR) - Rads (name of study) chest Radiology: Prelim report reviewed, EMP read indepedently, See rad report PD MEDICAL DECISION MAKING - ED course Complexity details: reviewed old records, reviewed results, re-evaluated patient, considered differential, d/w patient, d/w family ED course: 71-year-old female with a history of COPD has another exacerbation of her COPD and she is found to have a CO2 of over 83 on her initial venous blood gas with a pH of 7.2. She is administered a DuoNeb treatment with an additional 5 mg of albuterol as well as dexamethasone and saline. She has improvement in her respirations continues to have good oxygen saturation on oxygen and a repeat arterial blood gas demonstrates improvement in her CO2 to 66. And the pH is 7.3. Dr. Antunez is consulted in the case and will accept the patient for care on the floor. Departure - Departure Disposition: 64 [facility] DC/Xfer Clinical Impression: Acute on chronic respiratory failure with hypoxia and hypercapnia
[2021-07-03] MEDS ORDERED: ALBUTEROL NEB 2.5 MG/3 ML INH STA ×2 (00:05→01:30)
[2021-07-03] MEDS ORDERED: ALBUTEROL NEB 2.5 MG/3 ML INH ONE (00:08)
[2021-07-03 00:24] LABS: BASOPHILS # (AUTO) 0.2 10^3/uL (0.0-0.1); BASOPHILS % (AUTO) 1.3 %; EOSINOPHILS # (AUTO) 0.2 10^3/uL (0.0-0.7); EOSINOPHILS % (AUTO) 2.1 %; HCT - HEMATOCRIT 45.9 % (37.0-47.0); HGB - HEMOGLOBIN 15.2 g/dL (12.0-16.0); LYMPHOCYTES # (AUTO) 2.6 10^3/uL (1.5-3.5); LYMPHOCYTES % (AUTO) 23.1 %; MEAN CORPUSCULAR HEMOGLOBIN 34.9 pg (27.0-31.0); MEAN CORPUSCULAR HGB CONC 33.1 g/dL (32.0-36.0); MEAN CORPUSCULAR VOLUME 105.3 fL (81.0-99.0); MEAN PLATELET VOLUME 11.1 fL (7.9-10.8); MONOCYTES # (AUTO) 1.1 10^3/uL (0.0-1.0); MONOCYTES % (AUTO) 9.6 %; NEUTROPHILS # (AUTO) 7.1 10^3/uL (1.5-6.6); NEUTROPHILS % (AUTO) 63.5 %; PLT - PLATELET COUNT 313 10^3/uL (130-450); RED BLOOD COUNT 4.36 10^6/uL (4.20-5.40); RED CELL DISTRIBUTION WIDTH 13.2 % (12.0-15.0); WHITE BLOOD COUNT 11.1 x10^3/uL (4.8-10.8)
[2021-07-03 00:39] LABS: VBG BASE EXCESS 3.7 mmol/L (-2 - +2); VBG HCO3 34.4 mmol/L (23-28); VBG PCO2 83.4 mmHg (41-51); VBG PH 7.233 (7.31-7.41); VBG PO2 54.7 mmHg (25-47); VBG TOTAL CO2 36.9 mmol/L (24-29)
[2021-07-03 00:40] LABS: VBG OXYGEN SATURATION 84.9 % (60-80)
[2021-07-03 01:04] LABS: ALBUMIN 3.5 g/dL (3.2-5.5); ALBUMIN/GLOBULIN RATIO 1.1 (1.0-2.2); ALKALINE PHOSPHATASE 129 IU/L (42-121); ALT ALANINE AMINOTRANSFERASE 29 IU/L (10-60); AST ASPARTATE AMINOTRANSFERASE 63 IU/L (10-42); BILIRUBIN,TOTAL 0.8 mg/dL (0.2-1.0); BUN - BLOOD UREA NITROGEN < 5 mg/dL (6-20); CALCIUM 8.9 mg/dL (8.5-10.3); CARBON DIOXIDE - CO2 33 mmol/L (21-32); CHLORIDE 100 mmol/L (101-111); CREATININE 0.3 mg/dL (0.4-1.0); GFR - MDRD 218 (>89); GLUCOSE 108 mg/dL (70-100); LIPASE 32 U/L (22-51); POTASSIUM 4.1 mmol/L (3.5-5.0); SODIUM 144 mmol/L (135-145); TOTAL PROTEIN 6.7 g/dL (6.7-8.2)
--- NOTE | 2021-07-03 01:48 | XRAY Report ---
PROCEDURE: Chest 1 View X-Ray INDICATIONS: chest pain TECHNIQUE: One view of the chest was acquired. COMPARISON: FINDINGS: Surgical changes and devices: Surgical clips are redemonstrated projecting over the left chest wall Lungs and pleura: No pleural effusions or pneumothorax. There is hyperinflation of the lungs with f lattening of the hemidiaphragms compatible with COPD. Lungs are clear. Mediastinum: Mediastinal contours appear normal. Heart size is normal. Bones and chest wall: No suspicious bony lesions. Overlying soft tissues appear unremarkable. IMPRESSION: 1. No acute cardiopulmonary disease. 2. Surgical clips redemonstrated in the left chest wall. Reviewed by: Mingo Ramos MD on 07/03/2021 1:47 AM PDT Approved by: Mingo Ramos MD on 07/03/2021 1:47 AM PDT Station ID: [id number]
[2021-07-03 02:23] LABS: B. PARAPERTUSSIS- RESP PCR PAN NOT DETECTED; B. PERTUSSIS- RESP PCR PANEL NOT DETECTED; C. PNEUMONIAE- RESP PCR PANEL NOT DETECTED; CORONAVIRUS 229E-RESP PCR NOT DETECTED; CORONAVIRUS HKU1-RESP PCR NOT DETECTED; CORONAVIRUS NL63-RESP PCR NOT DETECTED; CORONAVIRUS OC43-RESP PCR NOT DETECTED; HUMAN METAPNEUMOVIRUS NOT DETECTED; INFLUENZA A- RESP PCR PANEL NOT DETECTED; INFLUENZA B - RESP PCR PANEL NOT DETECTED; M. PNEUMONIAE- RESP PCR PANEL NOT DETECTED; PARAINFLUENZA VIRUS 1 NOT DETECTED; PARAINFLUENZA VIRUS 2 NOT DETECTED; PARAINFLUENZA VIRUS 3 NOT DETECTED; PARAINFLUENZA VIRUS 4 NOT DETECTED; RHINOVIRUS/ENTEROVIRUS NOT DETECTED; RSV- RESP PCR PANEL NOT DETECTED; SARS-CoV-2 -RESP PCR PANEL NOT DETECTED
[2021-07-03 03:19] LABS: ABG BASE EXCESS 4.6 mmol/L (-2.0-3.0); ABG HCO3 32.9 mmol/L (22.0-26.0); ABG OXYGEN SATURATION 98 % (94-98); ABG PH 7.32 (7.35-7.45); ABG PO2 106 mmHg (80-100); ABG TCO2 34.9 MMOL/L (21.0-29.0); ALLEN TEST POSITIVE
[2021-07-03 03:20] LABS: ABG PCO2 66 mmHg (34-45)
[2021-07-03] MEDS ORDERED: ACETAMINOPHEN 325 MG TABLET PO PRN (05:03)
[2021-07-03] MEDS ORDERED: ONDANSETRON ODT 4 MG TABLET TL PRN (05:03)
[2021-07-03] MEDS ORDERED: ALBUTEROL NEB 2.5 MG/3 ML INH PRN (05:06)
--- NOTE | 2021-07-03 05:09 | HISTORY & PHYSICAL EXAMINATION ---
Chief Complaint - Chief Complaint Chief Complaint: Shortness of breath History of Present Illness - Admitted From Admitted From:: Home - History Obtained From Records Reviewed: [facility] History obtained from: Patient, Daughter, ER Physician - History of Present Illness HPI Comment/Other: This is a 71-year-old female with a past medical history significant for COPD on 1 to 2 L at home, alcoholic cirrhosis, history of pulmonary embolism who presents today complaining of shortness of breath. She states her symptoms began yesterday abruptly in the evening and progressed over the next few hours so she came to the emergency department. She reports feeling well yesterday morning and the prior few days. She has no fevers but has had chills. She reports a productive cough. She has been wheezing and tried her home nebulizers without any improvement in her symptoms. She denies chest pain but does have tightness and discomfort with cough. She continues to smoke a little over a pack a day. She does have noninvasive ventilator at home but has not been compliant with it as she does not like the pressure and the way it makes her feel. She also reports she was hospitalized a few weeks ago at [facility] for her COPD and needed to go to a SNF for a few days after discharge. She is normally on 1 to 2 L of oxygen at home but today her daughter bumped up to 3 L due to her shortness of breath. 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 In the emergency department, she was given nebulizer treatments and steroids. Her chest x-ray showed no acute abnormalities. A VBG was obtained which was concerning for potential hypercapnia. We have no ICU beds available but clinically the patient appeared improved so an ABG was obtained about an hour and a half later after initiating treatments and showed significant improvement so she will be admitted to the floor for further management. We discussed goals of care and she would like to be a full code at this time. 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 She denies any other family history. Living Situation: With spouse/s.o., With family Social History Notes: She has smoked a pack a day for over 55 years. She has also been drinkinga alcohol for about 40+ years. She consumes 4 to 6 glasses of wine a day. - Substance History Use: Uses substance without health or social issues: Tobacco - POLST Patient has POLST: No POLST Status: DNR (Please see advance care planning discussion) Meds/Allgy - Home Medications Home Medications: Ambulatory Orders Medication Instructions Recorded Confirmed Propranolol [Inderal] 10 mg PO BID 09/21/18 07/03/21 Albuterol Sulfate [Proair Hfa 2 puffs INH Q4H PRN 05/13/20 07/03/21 Inhaler] Furosemide [Lasix] 40 mg PO DAILY 06/19/20 07/03/21 Montelukast [Singulair] 10 mg PO QPM 06/19/20 07/03/21 Rivaroxaban [Xarelto] 10 mg PO DAILY 06/19/20 07/03/21 Spironolactone [Aldactone] 50 mg PO DAILY 06/19/20 07/03/21 Tiotropium [place] [Spiriva] 1 puffs INH DAILY 06/19/20 07/03/21 Nicotine 14 mg Patch [Nicoderm] 1 patch TOP DAILY patch 06/22/20 07/03/21 Pantoprazole [Protonix] 40 mg PO QDAC #40 tablet 06/22/20 07/03/21 Lactulose 15 ml PO TID 07/28/20 07/03/21 Pnv No.95/Ferrous Fum/Folic AC 1 each PO DAILY #30 tablet 08/01/20 07/03/21 [ Tablet] Thiamine [Vitamin B-1] 100 mg PO DAILY #30 tablet 08/01/20 07/03/21 - Allergies Allergies/Adverse Reactions: Allergies Allergy/AdvReac Type Severity Reaction Status Date / Time Latex, Natural Rubber Allergy Rash Verified 07/02/21 23:44 lisinopril Allergy Respiratory Verified 07/02/21 23:44 Review of Systems - Constitutional Constitutional: reports: Chills. denies: Fever - Ears, Nose & Throat Ears, Nose & Throat: denies: Nasal discharge, Postnasal drainage - Cardiovascular Cariovascular: reports: Palpitations, Exertional dyspnea, Decr. exercise tolerance. denies: Chest pain, Edema - Respiratory Respiratory: reports: Cough, Sputum production, Wheezing, SOB at rest, SOB with exertion, Pleuritic pain - Gastrointestinal Gastrointestinal: reports: Abdominal pain (chronic.). denies: Diarrhea, Bloody stools, Nausea, Vomiting - Genitourinary Genitourinary: denies: Dysuria, Frequency, Urgency - Musculoskeletal Musculoskeletal: denies: Muscle pain, Back pain - Integumentary Integumentary: denies: Rash - Neurological Neurological: denies: General weakness - Hematologic/Lymphatic Hematologic/Lymphatic: reports: Blood clots. denies: Anemia, Bleeding tendencies - All Other Systems All Other Systems: reports: Reviewed and negative Prior Level of Functionality: She is independent with her ADLs was has had a functional decline over the past few months to a year due to her COPD. Exam - Vital Signs Reviewed Vital Signs: Yes Vital Signs: Vital Signs x48h Temp Pulse Resp BP Pulse Ox 07/03/21 04:56 101 H 19 144/99 H 91 L 07/03/21 02:37 101 H 22 150/107 H 97 07/03/21 01:49 99 30 H 138/68 H 95 07/03/21 01:40 95 20 07/03/21 01:02 107 H 22 98 07/03/21 00:26 99 07/03/21 00:25 100 07/03/21 00:20 108 H 24 163/120 H 07/02/21 23:56 110 H 25 H 182/91 H 96 07/02/21 23:55 110 H 22 07/02/21 23:44 36.5 C 100 30 H 180/90 H 86 L - Physical Exam General Appearance: positive: No acute distress, Alert Eyes Bilateral: positive: Normal inspection, Conjunctivae nml ENT: positive: ENT inspection nml, Other (Nasal cannula in pace.) Neck: positive: Nml inspection Respiratory: positive: Other (She is nondistressed but does have faint expiratory disease throughout. Breath sounds are diminished with poor air movement.) Cardiovascular: positive: Tachycardia. negative: Irregularly irregular, Extrasystoles, Systolic murmur Abdomen: positive: Nml bowel sounds, No distention, Tenderness (Mild tenderness diffusely.). negative: Guarding, Rebound Skin: positive: Warm, Dry Extremities: positive: No pedal edema Neurologic/Psychiatric: positive: Other (No focal deficits.). negative: Disoriented to person, Disoriented to place Conclusion/Plan - Problem List (1) Acute on chronic respiratory failure with hypoxia and hypercapnia Conclusion/Plan: She currently remains on her baseline 1 to 2 L of oxygen via nasal cannula. Her hypercapnia is improved without the use of BiPAP. This is secondary to the COPD exacerbation. We will place her in observation and admit to the floor. We will start her on duo nebs every 4 with albuterol as needed. We will start her on antibiotics and continue Solu-Medrol 40 mg IV 3 times daily. Goal oxygen saturation greater than 88%. She will need an exercise the saturation test prior to discharge (2) COPD exacerbation Conclusion/Plan: This is a cause of her acute on chronic hypoxic and hypercapnic respiratory failure. Fortunately she has had significant improvement since arrival to the emergency department as her hypercapnia is improved. Chest x-ray revealed no acute abnormalities. We will place her in observation and start her on Levaquin, Solu-Medrol IV 3 times daily standing duo nebs with albuterol as nee ded. I am hopeful for a quick turnaround but if she needs more time then we will make her inpatient status. (3) History of pulmonary embolism Conclusion/Plan: We will continue her home anticoagulation. (4) Cirrhosis with alcoholism Conclusion/Plan: This is stable. She continues doing alcohol on a daily basis. We will continue her home lactulose and thiamine. She was counseled on the importance of alcohol cessation. We will monitor for evidence of withdrawal. (5) Tobacco use disorder, continuous Conclusion/Plan: We will start her on a nicotine patch. - Lab Results Lab results reviewed: Yes Fish Bones: 07/03/21 06:00 07/03/21 06:00 - Diagnostic Imaging Results Diagnostic Imaging Results: positive: Final report reviewed Core Measures - Anticipated LOS I expect patient to be DC'd or transferred within 96 hours.: Yes - Issues Hospital Issues and Management Plan: 71-year-old female with history of COPD on oxygen at home presents with worsening dyspnea found to have a COPD exacerbation. She will be admitted for further management. - DVT/VTE - Prophylaxis VTE/DVT Device ordered at admit?: No VTE/DVT Prophylaxis med ordered at admit?: Yes
[2021-07-03] MEDS: methylPREDNISolone SUCCINATE 40 MG/ML VIAL IVP SCH ×3 (05:51→21:28)
[2021-07-03] MEDS: PANTOPRAZOLE 40 MG TABLET PO SCH (05:51)
[2021-07-03] MEDS: LACTULOSE 10 GM /15 ML UDC PO SCH ×3 (05:51→21:28)
[2021-07-03 06:10] LABS: BASOPHILS % (AUTO) 0.6 %; HCT - HEMATOCRIT 42.9 % (37.0-47.0); HGB - HEMOGLOBIN 13.9 g/dL (12.0-16.0); MEAN CORPUSCULAR HEMOGLOBIN 34.3 pg (27.0-31.0); MEAN CORPUSCULAR HGB CONC 32.4 g/dL (32.0-36.0); MEAN CORPUSCULAR VOLUME 105.9 fL (81.0-99.0); MEAN PLATELET VOLUME 10.6 fL (7.9-10.8); MONOCYTES % (AUTO) 0.5 %; NEUTROPHILS % (AUTO) 94.6 %; PLT - PLATELET COUNT 279 10^3/uL (130-450); RED BLOOD COUNT 4.05 10^6/uL (4.20-5.40); RED CELL DISTRIBUTION WIDTH 13.1 % (12.0-15.0); WHITE BLOOD COUNT 14.4 x10^3/uL (4.8-10.8)
[2021-07-03 06:18] LABS: CALCIUM 8.8 mg/dL (8.5-10.3); CREATININE 0.3 mg/dL (0.4-1.0); POTASSIUM 4.3 mmol/L (3.5-5.0)
[2021-07-03 06:36] LABS: ABNORMAL LYMPHS % (MANUAL) 0 %
[2021-07-03 06:43] LABS: BAND NEUTROPHILS % (MANUAL) 6 %; DIFFERENTIAL COMMENT MANUAL DIFFERENTIAL; LYMPHOCYTES # (MANUAL) 0.7 10^3/uL (1.5-3.5); LYMPHOCYTES % (MANUAL) 5 %; NEUTROPHILS # (MANUAL) 13.7 10^3/uL (1.5-6.6); PLATELET ESTIMATE, MANUAL NORMAL (130-450,000) (NORMAL); RBC MORPHOLOGY (MULTIPLE) NORMAL APPEARANCE (NORMAL)
[2021-07-03] MEDS: IPRATROPIUM/ALBUTEROL 3 ML NEB INH SCH ×4 (08:31→23:50)
[2021-07-03 09:47] LABS: GLUCOSE, URINE (UA) NEGATIVE (NEGATIVE); KETONES,URINE (UA) 40 mg/dL (NEGATIVE); LEUKOCYTE ESTERASE, URINE NEGATIVE (NEGATIVE); NITRITE,URINE NEGATIVE (NEGATIVE); OCCULT BLOOD,URINE NEGATIVE (NEGATIVE); PROTEIN,URINE NEGATIVE (NEGATIVE); UROBILINOGEN,URINE 1 (NORMAL) E.U./dL (NORMAL)
[2021-07-03 09:50] LABS: CLARITY,URINE CLEAR (CLEAR)
[2021-07-03 09:51] LABS: BILIRUBIN,URINE NEGATIVE (NEGATIVE); ICTOTEST,URINE NEGATIVE
[2021-07-03] MEDS: THIAMINE 100 MG TABLET PO SCH (10:15)
[2021-07-03] MEDS: SPIRONOLACTONE 25 MG TABLET PO SCH (10:16)
[2021-07-03] MEDS: FUROSEMIDE 40 MG TABLET PO SCH (10:16)
[2021-07-03] MEDS: PROPRANOLOL 10 MG TABLET PO SCH ×2 (10:16→21:29)
[2021-07-03] MEDS: APIXABAN 5 MG TABLET PO SCH ×2 (10:16→21:29)
[2021-07-03] MEDS: NICOTINE 14 MG PATCH TOP SCH (10:17)
[2021-07-03] MEDS: SODIUM CHLORIDE FLUSH 0.9% 10 ML SYRINGE IVP SCH ×2 (10:20→17:32)
[2021-07-03] MEDS: INSULIN ASPART 300 UNIT/3 ML PEN SUBQ SCH ×4 (10:20→21:29)
[2021-07-03] MEDS: levoFLOXacin 750 MG/150 ML 750 MG/150 ML BAG IV SCH (10:21)
[2021-07-03] MEDS: SODIUM CHLORIDE FLUSH 0.9% 10 ML SYRINGE IVP PRN (14:17)
[2021-07-03] MEDS ORDERED: MONTELUKAST 10 MG TABLET PO SCH (21:00)
[2021-07-04] MEDS: SODIUM CHLORIDE FLUSH 0.9% 10 ML SYRINGE IVP SCH ×2 (00:47→10:08)
[2021-07-04] MEDS ORDERED: BENZOCAINE/MENTHOL LOZENGE MM PRN (02:06)
[2021-07-04] MEDS: LACTULOSE 10 GM /15 ML UDC PO SCH ×2 (05:11→13:12)
[2021-07-04] MEDS: PANTOPRAZOLE 40 MG TABLET PO SCH (05:11)
[2021-07-04] MEDS: methylPREDNISolone SUCCINATE 40 MG/ML VIAL IVP SCH (05:11)
[2021-07-04] MEDS: SODIUM CHLORIDE FLUSH 0.9% 10 ML SYRINGE IVP PRN (05:11)
[2021-07-04 06:02] LABS: BASOPHILS % (AUTO) 0.1 %; HCT - HEMATOCRIT 38.8 % (37.0-47.0); HGB - HEMOGLOBIN 12.8 g/dL (12.0-16.0); LYMPHOCYTES # (AUTO) 0.6 10^3/uL (1.5-3.5); LYMPHOCYTES % (AUTO) 6.1 %; MEAN CORPUSCULAR HEMOGLOBIN 34.6 pg (27.0-31.0); MEAN CORPUSCULAR VOLUME 104.9 fL (81.0-99.0); MEAN PLATELET VOLUME 11.2 fL (7.9-10.8); MONOCYTES # (AUTO) 0.6 10^3/uL (0.0-1.0); MONOCYTES % (AUTO) 5.6 %; NEUTROPHILS # (AUTO) 8.9 10^3/uL (1.5-6.6); NEUTROPHILS % (AUTO) 87.7 %; NRBC ABSOLUTE COUNT (AUTO) 0.02 x10^3/uL; NUCLEATED RED BLOOD CELLS AUTO 0.2 /100WBC; PLT - PLATELET COUNT 228 10^3/uL (130-450); RED CELL DISTRIBUTION WIDTH 12.8 % (12.0-15.0); WHITE BLOOD COUNT 10.2 x10^3/uL (4.8-10.8)
[2021-07-04 06:35] LABS: CALCIUM 8.8 mg/dL (8.5-10.3); CREATININE 0.3 mg/dL (0.4-1.0); POTASSIUM 3.1 mmol/L (3.5-5.0)
[2021-07-04] MEDS ORDERED: POTASSIUM CHLORIDE 20 MEQ TABLET PO ONE (07:04)
[2021-07-04] MEDS: IPRATROPIUM/ALBUTEROL 3 ML NEB INH SCH ×2 (07:45→11:20)
[2021-07-04] MEDS ORDERED: PRENATAL VITAMIN TABLET PO SCH (08:00)
[2021-07-04] MEDS: FUROSEMIDE 40 MG TABLET PO SCH (10:03)
[2021-07-04] MEDS: APIXABAN 5 MG TABLET PO SCH (10:03)
[2021-07-04] MEDS: PROPRANOLOL 10 MG TABLET PO SCH (10:04)
[2021-07-04] MEDS: NICOTINE 14 MG PATCH TOP SCH (10:04)
[2021-07-04] MEDS: SPIRONOLACTONE 25 MG TABLET PO SCH (10:04)
[2021-07-04] MEDS: THIAMINE 100 MG TABLET PO SCH (10:04)
[2021-07-04] MEDS: INSULIN ASPART 300 UNIT/3 ML PEN SUBQ SCH ×2 (10:07→11:25)
[2021-07-04] MEDS: levoFLOXacin 750 MG/150 ML 750 MG/150 ML BAG IV SCH (10:10)
[2021-07-04] MEDS ORDERED: levoFLOXacin 250 MG TABLET PO SCH (12:40)
--- NOTE | 2021-07-04 12:47 | DISCHARGE SUMMARY ---
Discharge Summary Admit Date: 07/03/21 Discharge Date: 07/04/21 Discharging Provider: Dr Emily Sher Primary Care Provider: Dr Lo Gross Code Status: Attempt Resuscitation Condition at Discharge: Fair Discharge Disposition: 01 Home, Self Care - HPI History of Present Illness: From the admission H&P of Dr Diallo Corona: This is a 71-year-old female with a past medical history significant for COPD on 1 to 2 L/min of oxygen at home, has alcoholic cirrhosis, history of pulmonary embolism who presents today complaining of shortness of breath. She states her symptoms began yesterday abruptly in the evening and progressed over the next few hours so she came to the emergency department. She reports feeling well yesterday morning and the prior few days. She has no fevers but has had chills. She reports a productive cough. She has been wheezing and tried her home nebulizers without any improvement in her symptoms. She denies chest pain but does have tightness and discomfort with cough. She continues to smoke a little over a pack a day. She does have a noninvasive ventilator at home but has not been compliant with it as she does not like the pressure and the way it makes her feel. She also reports she was hospitalized a few weeks ago at [facility] for her COPD and needed to go to a SNF for a few days after discharge. Today her daughter bumped up her O2 setting to 3 L/min due to her shortness of breath. She does not have a unit secy. In the emergency department, she was given nebulizer treatments and iv steroids. Her chest x-ray showed no acute abnormalities. A VBG was obtained which was concerning for potential hypercapnia. We have no ICU beds available but clinically the patient appeared improved so an ABG was obtained about an hour and a half later after initiating treatments and showed significant improvement. Thus she [facility] floor for further management, in Observation status. We discussed goals of care and she would like to be a Full Code at this time. - HOSPITAL COURSE Hospital Course: (1) Acute on chronic respiratory failure with hypoxia and hypercapnia This was secondary to the COPD exacerbation, which was treated and she was kept on suppl. O2. She felt much better the next day and underwent an exercise O2 saturation test prior to discharge. No new oxygen settings were needed. (2) COPD exacerbation This was the cause of her acute on chronic hypoxic and hypercapnic respiratory failure. Fortunately she had significant rapid improvement. Chest x-ray revealed no acute abnormalities. She was started on empiric Levaquin, Solu- Medrol IV, nebulized duo nebs and additional nebulized albuterol as needed. She had no wheezing or desaturations the following day and was discharged home with new prescriptions for: 3 more days of oral Levaquin, new Combivent inhaler to use q.i.d. and a Medrol Dose-Spike for a rapid steroid taper. (3) History of pulmonary embolism We continued her home anticoagulation. (4) Cirrhosis with alcoholism She recntly resumed taking alcohol on a daily basis, she admitted and was motivated to quit. We continued her home lactulose and thiamine. She was counseled on the importance of alcohol cessation. She scored 2-4 on CIWA score and did not need iv Ativan. From Social Work, she got a list of resources for local outpatient alcohol rehab locations. (5) Tobacco use disorder, continuous We had her on a nicotine patch. She was also motivated to quit smoking (over a PPD currently). - ALLERGIES Allergies/Adverse Reactions: Allergies Allergy/AdvReac Type Severity Reaction Status Date / Time Latex, Natural Rubber Allergy Rash Verified 07/02/21 23:44 lisinopril Allergy Respiratory Verified 07/02/21 23:44 - MEDICATIONS Home Medications: Ambulatory Orders Medication Instructions Recorded Confirmed Propranolol [Inderal] 10 mg PO BID 09/21/18 07/03/21 Albuterol Sulfate [Proair Hfa 2 puffs INH Q4H PRN 05/13/20 07/03/21 Inhaler] Furosemide [Lasix] 40 mg PO DAILY 06/19/20 07/03/21 Montelukast [Singulair] 10 mg PO QPM 06/19/20 07/03/21 Rivaroxaban [Xarelto] 10 mg PO DAILY 06/19/20 07/03/21 Spironolactone [Aldactone] 50 mg PO DAILY 06/19/20 07/03/21 Tiotropium [place] [Spiriva] 1 puffs INH DAILY 06/19/20 07/03/21 Nicotine 14 mg Patch [Nicoderm] 1 patch TOP DAILY patch 06/22/20 07/03/21 Pantoprazole [Protonix] 40 mg PO QDAC #40 tablet 06/22/20 07/03/21 Lactulose 15 ml PO TID 07/28/20 07/03/21 Pnv No.95/Ferrous Fum/Folic AC 1 each PO DAILY #30 tablet 08/01/20 07/03/21 [ Tablet] Thiamine [Vitamin B-1] 100 mg PO DAILY #30 tablet 08/01/20 07/03/21 Ipratropium/Albuterol [Combivent 2 puffs IH QID #1 inh 07/04/21 Respimat] levoFLOXacin [Levaquin] 750 mg PO DAILY #3 tablet 07/04/21 methylPREDNISolone [Medrol Dose 1 each PO .PACKAGEINSTRUCTIONS 6 07/04/21 Pack] Days #1 each - PHYSICAL EXAM AT DISCHARGE General Appearance: positive: No acute distress, Alert, Other (Thin elderly, frail white female.) Eyes Bilateral: positive: Normal inspection, EOMI ENT: positive: No signs of dehydration, Other (Is melisa O2 per n.c. Using pursed lip breathing when walking.) Neck: positive: Nml inspection Respiratory: positive: Rhonchi, Other (Poor air movement, no wheezing) Cardiovascular: positive: Other (Distant heart sounds, no murmur audible (but has loud rhochi).) Abdomen: positive: Non-tender, No distention Skin: positive: Warm, Dry Extremities: positive: Non-tender, No pedal edema Neurologic/Psychiatric: positive: Oriented x3 (Has a fine tremor of hands.) - LABS Result Diagrams: 07/04/21 05:10 07/04/21 05:10
--- NOTE | 2021-07-04 12:50 | Discharge Plan ---
Discharge Plan Problem Reviewed?: Yes Disposition: Home, Self Care Condition: Fair Prescriptions: Ipratropium/Albuterol [Combivent Respimat] 2 puffs IH QID #1 inh levoFLOXacin [Levaquin] 750 mg PO DAILY #3 tablet methylPREDNISolone [Medrol Dose Pack] 1 each PO .PACKAGEINSTRUCTIONS 6 Days #1 each Diet: Low Sodium Activity Restrictions: Activity as Tolerated Shower Restrictions: No Assistance Devices: [facility] Concerns: You were brieflyy hospitalized because of having a COPD exacerbation. You needed IV steroids, IV antibiotics, and increased nebulizer bronchodilators. You are being discharged home and you can please resume all your usual medications and management and supplemental oxygen. You need several more days of oral antibiotic (Levaquin), a Medrol Dosepak (for a rapid steroid taper schedule), and a new inhaler to use going forward, 4 times a day, called Combivent. All the new prescriptions were electronically sent to the [facility] pharmacy in [place]. You were also given resources by our Drilling Machine Operator for alcohol detox and alcohol outpatient rehab. Plan of Treatment: As above. Care Goals: Improvement in symptoms and stabilization are the goals. Assessment: The patient understands and is agreeable with the plan. Additional Instructions or Follow Up instructions: You qualify for attending pulmonary rehab as an outpatient [facility]. A referral would need to be ordered by your Maple [employer] Maker or Primary Care Provider. No Smoking: If you smoke, Please STOP! Call for help.
[2021-07-04 16:21] VITALS: BP 140/73
== END 2021-07-04 15:35 | disposition home or self-care (01) ==
LOC: ED 23:31 → MS2 07-03 05:03
PROVIDERS: ADMIT Internal Medicine; ATTEND Internal Medicine
DX: J96.22 Acute and chronic respiratory failure with hypercapnia (principal); J96.21 Acute and chronic respiratory failure with hypoxia; F17.210 Nicotine dependence, cigarettes, uncomplicated; Z99.81 Dependence on supplemental oxygen; Z86.711 Personal history of pulmonary embolism; Z79.01 Long term (current) use of anticoagulants; K70.30 Alcoholic cirrhosis of liver without ascites; F10.20 Alcohol dependence, uncomplicated; J43.9 Emphysema, unspecified; Z20.822 Contact with and (suspected) exposure to COVID-19; R32 Unspecified urinary incontinence
CPT/HCPCS: 36415; 36600; 71045; 80048; 80053; 81003; 82803; 83690; 83735; 83880; 85025; 87040; 87633; 93005; 94640; 94761; 96361; 96365; 96366; 96375; 96376; 99283; 99285; A9270; G0378; 81001; 87086

== ENCOUNTER 2021-07-28 13:42 | Observation (INO) | payer MEDICARE, OTHER ==
[2021-07-28] MEDS ORDERED: methylPREDNISolone SUCCINATE 125 MG/2 ML VIAL IVP STA (14:23)
--- NOTE | 2021-07-28 14:37 | ED Physician Documentation ---
History of Present Illness - Stated complaint Stated Complaint: SOA/COPD EXACERBATION - Chief complaint Chief Complaint: Resp - History obtained from History obtained from: Patient, EMS - History of Present Illness Timing: Today Pain level max: 0 Pain level now: 0 - Additonal information Additional information: Patient is a 71-year-old female longstanding history of COPD, still smokes. She states that over the past 3 to 4 days has had increased difficulty breathing. Does not improve with nebulizers or inhalers. Worsening with exertion. She does use oxygen at home, 1 to 1.5 L. She does not believe that she has had any fevers. She has had increased coughing. She was last on steroids about a month ago. She is unsure what inhaler she is on at home. Dry cough, does not seem worse than usual. Review of Systems Ten Systems: 10 systems reviewed and negative Constitutional: denies: Fever, Chills Nose: denies: Rhinorrhea / runny nose, Congestion Respiratory: denies: Cough GI: denies: Nausea, Vomiting, Diarrhea Skin: denies: Rash Musculoskeletal: denies: Neck pain, Back pain Neurologic: denies: Headache PD PAST MEDICAL HISTORY - Past Medical History Past Medical History: Yes Cardiovascular: Hypertension, High cholesterol, Deep vein thrombosis, Pulmonary embolism Respiratory: COPD, Emphysema Neuro: None Endocrine/Autoimmune: None GI: Cirrhosis WAGE CONCILIATOR: Breast cancer : Incontinence HEENT: None Psych: Depression, Anxiety Musculoskeletal: Osteoarthritis, Osteoporosis, Chronic back pain Derm: None - Past Surgical History Past Surgical History: Yes General: Colonoscopy, EGD /WAGE CONCILIATOR: Other - Present Medications Home Medications: Ambulatory Orders Medication Instructions Recorded Confirmed Propranolol [Inderal] 10 mg PO BID 09/21/18 07/03/21 Albuterol Sulfate [Proair Hfa 2 puffs INH Q4H PRN 05/13/20 07/03/21 Inhaler] Furosemide [Lasix] 40 mg PO DAILY 06/19/20 07/03/21 Montelukast [Singulair] 10 mg PO QPM 06/19/20 07/03/21 Rivaroxaban [Xarelto] 10 mg PO DAILY 06/19/20 07/03/21 Spironolactone [Aldactone] 50 mg PO DAILY 06/19/20 07/03/21 Tiotropium [place] [Spiriva] 1 puffs INH DAILY 06/19/20 07/03/21 Nicotine 14 mg Patch [Nicoderm] 1 patch TOP DAILY patch 06/22/20 07/03/21 Pantoprazole [Protonix] 40 mg PO QDAC #40 tablet 06/22/20 07/03/21 Lactulose 15 ml PO TID 07/28/20 07/03/21 Pnv No.95/Ferrous Fum/Folic AC 1 each PO DAILY #30 tablet 08/01/20 07/03/21 [ Tablet] Thiamine [Vitamin B-1] 100 mg PO DAILY #30 tablet 08/01/20 07/03/21 Ipratropium/Albuterol [Combivent 2 puffs IH QID #1 inh 07/04/21 Respimat] levoFLOXacin [Levaquin] 750 mg PO DAILY #3 tablet 07/04/21 methylPREDNISolone [Medrol Dose 1 each PO .PACKAGEINSTRUCTIONS 6 07/04/21 Pack] Days #1 each - Allergies Allergies/Adverse Reactions: Allergies Allergy/AdvReac Type Severity Reaction Status Date / Time Latex, Natural Rubber Allergy Rash Verified 07/28/21 13:46 lisinopril Allergy Respiratory Verified 07/28/21 13:46 - Social History Does the pt smoke?: Yes Smoking Status: Current every day smoker Does the pt drink ETOH?: Yes Does the pt have substance abuse?: No - Immunizations Immunizations are current?: Yes - POLST Patient has POLST: No POLST Status: DNR (Please see advance care planning discussion) PD ED PE NORMAL - Vitals Vital signs reviewed: Yes - General General: Alert and oriented X 3, No acute distress, Other (thin, frail female) - HEENT HEENT: Other (dry lips and tongue) - Neck Neck: Supple, no meningeal sign - Cardiac Cardiac: RRR - Respiratory Respiratory: Other (rhonchi B, tachypnea) - Abdomen Abdomen: Soft, Non tender, Non distended - Derm Derm: Warm and dry - Extremities Extremities: No edema - Neuro Neuro: Alert and oriented X 3 Results - Vitals Vitals: Vital Signs - 24 hr 07/28/21 07/28/21 07/28/21 13:43 15:04 15:34 Temperature 37.1 C Heart Rate 103 H 96 101 H Respiratory 31 H 20 22 Rate Blood Pressure 147/82 H 114/90 H O2 Saturation 97 95 07/28/21 07/28/21 16:00 16:30 Temperature Heart Rate 92 96 Respiratory 25 H 24 Rate Blood Pressure 133/74 H 132/100 H O2 Saturation 97 99 Oxygen O2 Source Nasal cannula - EKG (time done) 1423 Rate: Rate (enter#) (98) Rhythm: NSR Gove: LAD (borderline) Intervals: Normal CA QRS: Normal Ischemia: Normal ST segments, Q waves (III, v2-3) - Labs Labs: Laboratory Tests 07/28/21 07/28/21 07/28/21 14:52 14:52 15:32 WBC 8.5 RBC 4.75 Hgb 15.3 Hct 48.8 H MCV 102.7 H MCH 32.2 H MCHC 31.4 L RDW 13.5 Plt Count 178 MPV 10.7 Neut # (Auto) 7.0 H Lymph # (Auto) 0.6 L [place] # (Auto) 0.8 Eos # (Auto) 0.0 Baso # (Auto) 0.0 Absolute Nucleated RBC 0.00 Nucleated RBC % 0.0 Sodium 138 Potassium 4.0 Chloride 94 L Carbon Dioxide 35 H Anion Gap 9.0 BUN 5 L Creatinine 0.3 L Estimated GFR (MDRD) 218 Glucose 124 H Calcium 9.1 Total Bilirubin 0.8 AST 30 ALT 14 Alkaline Phosphatase 109 Total Protein 6.0 L Albumin 3.1 L Globulin 2.9 Albumin/Globulin Ratio 1.1 Nasal Adenovirus (PCR) NOT DETECTED Nasal B. parapertussis DNA (PCR) NOT DETECTED Nasal Coronavir 229E PCR NOT DETECTED Nasal Coronavir HKU1 PCR NOT DETECTED Nasal Coronavir NL63 PCR NOT DETECTED Nasal Coronavir OC43 PCR NOT DETECTED Nasal Enterovir/Rhinovir PCR NOT DETECTED Nasal Influenza B PCR NOT DETECTED Nasal Influenza A PCR NOT DETECTED Nasal Parainfluen 1 PCR NOT DETECTED Nasal Parainfluen 2 PCR NOT DETECTED Nasal Parainfluen 3 PCR NOT DETECTED Nasal Parainfluen 4 PCR NOT DETECTED Nasal RSV (PCR) NOT DETECTED Nasal B.pertussis DNA PCR NOT DETECTED Nasal C.pneumoniae (PCR) NOT DETECTED Kaleb Human Metapneumo PCR NOT DETECTED Nasal M.pneumoniae (PCR) NOT DETECTED Nasal SARS-CoV-2 (PCR) NOT DETECTED - Rads (name of study) Chest x-ray Radiology: Final report received, EMP read contemporaneously, See rad report (No acute abnormality) PD MEDICAL DECISION MAKING - ED course Complexity details: reviewed results, re-evaluated patient, considered differential, d/w patient, d/w family, d/w lead consultant ED course: ,71-year-old female with a COPD exacerbation. She does use oxygen at home usually 1 L. Here she is on 2 L. She was given Solu-Medrol and 4 nebulizer treatments between the ER and EMS. Still speaking in 1-2 word sentences. We stood the patient up at bedside and even on oxygen her O2 saturations went down to the upper 80s, approximately 88. She felt significantly short of breath and lightheaded. We will place the patient in observation for further care. Discussed the case with Dr. Quintero, hospitalist who accepts. COVID test is negative. This document was made in part using voice recognition software. While efforts are made to proofread this document, sound alike and grammatical errors may occur. Departure - Departure Disposition: ED Place in Observation Clinical Impression: COPD exacerbation, Hypoxia Condition: Stable
[2021-07-28] MEDS ORDERED: IPRATROPIUM/ALBUTEROL 3 ML NEB INH STA (14:49)
[2021-07-28] MEDS ORDERED: SODIUM CHLORIDE 0.9% 1,000 ML IV STA (14:49)
[2021-07-28] MEDS ORDERED: SODIUM CHLORIDE 0.9% 500 ML IV STA (14:49)
[2021-07-28 15:05] LABS: BASOPHILS % (AUTO) 0.5 %; EOSINOPHILS % (AUTO) 0.4 %; HCT - HEMATOCRIT 48.8 % (37.0-47.0); HGB - HEMOGLOBIN 15.3 g/dL (12.0-16.0); LYMPHOCYTES # (AUTO) 0.6 10^3/uL (1.5-3.5); LYMPHOCYTES % (AUTO) 6.6 %; MEAN CORPUSCULAR HEMOGLOBIN 32.2 pg (27.0-31.0); MEAN CORPUSCULAR HGB CONC 31.4 g/dL (32.0-36.0); MEAN CORPUSCULAR VOLUME 102.7 fL (81.0-99.0); MEAN PLATELET VOLUME 10.7 fL (7.9-10.8); MONOCYTES # (AUTO) 0.8 10^3/uL (0.0-1.0); MONOCYTES % (AUTO) 9.9 %; NEUTROPHILS % (AUTO) 82.2 %; PLT - PLATELET COUNT 178 10^3/uL (130-450); RED BLOOD COUNT 4.75 10^6/uL (4.20-5.40); RED CELL DISTRIBUTION WIDTH 13.5 % (12.0-15.0); WHITE BLOOD COUNT 8.5 x10^3/uL (4.8-10.8)
[2021-07-28 15:21] LABS: ALBUMIN 3.1 g/dL (3.2-5.5); ALBUMIN/GLOBULIN RATIO 1.1 (1.0-2.2); BILIRUBIN,TOTAL 0.8 mg/dL (0.2-1.0); CALCIUM 9.1 mg/dL (8.5-10.3); CREATININE 0.3 mg/dL (0.4-1.0)
--- NOTE | 2021-07-28 15:42 | XRAY Report ---
PROCEDURE: Chest 2 View X-Ray INDICATIONS: Cough TECHNIQUE: 2 view(s) of the chest. COMPARISON: By 27/07/2021 FINDINGS: Surgical changes and devices: None. Lungs and pleura: No pleural effusions or pneumothorax. Lungs are clear. Hyperinflation of the malik gs with chronic mild coarsening of interstitial markings again seen. Mediastinum: Mediastinal contours are normal. Heart size is normal. Bones and chest wall: No suspicious bony abnormalities. Soft tissues appear unremarkable. IMPRESSION: No acute cardial pulmonary finding or significant change from prior study. Reviewed by: Chay Fontanez MD on 07/28/2021 3:40 PM PDT Approved by: Chay Fontanez MD on 07/28/2021 3:40 PM PDT Station ID: [id number]
[2021-07-28] MEDS ORDERED: ALBUTEROL NEB 2.5 MG/3 ML INH STA (16:00)
[2021-07-28] MEDS ORDERED: ALBUTEROL NEB 2.5 MG/3 ML INH ONE (16:31)
[2021-07-28 16:59] LABS: B. PARAPERTUSSIS- RESP PCR PAN NOT DETECTED; B. PERTUSSIS- RESP PCR PANEL NOT DETECTED; C. PNEUMONIAE- RESP PCR PANEL NOT DETECTED; CORONAVIRUS 229E-RESP PCR NOT DETECTED; CORONAVIRUS HKU1-RESP PCR NOT DETECTED; CORONAVIRUS NL63-RESP PCR NOT DETECTED; CORONAVIRUS OC43-RESP PCR NOT DETECTED; HUMAN METAPNEUMOVIRUS NOT DETECTED; INFLUENZA A- RESP PCR PANEL NOT DETECTED; INFLUENZA B - RESP PCR PANEL NOT DETECTED; M. PNEUMONIAE- RESP PCR PANEL NOT DETECTED; PARAINFLUENZA VIRUS 1 NOT DETECTED; PARAINFLUENZA VIRUS 2 NOT DETECTED; PARAINFLUENZA VIRUS 3 NOT DETECTED; PARAINFLUENZA VIRUS 4 NOT DETECTED; RHINOVIRUS/ENTEROVIRUS NOT DETECTED; RSV- RESP PCR PANEL NOT DETECTED; SARS-CoV-2 -RESP PCR PANEL NOT DETECTED
[2021-07-28] MEDS ORDERED: SODIUM CHLORIDE FLUSH 0.9% 10 ML SYRINGE IVP PRN (17:34)
[2021-07-28] MEDS ORDERED: PROCHLORPERAZINE 10 MG/2 ML VIAL IVP PRN (17:34)
[2021-07-28] MEDS ORDERED: HYDROcod/ACETAM 5/325 MG TABLET PO PRN (17:34)
--- NOTE | 2021-07-28 18:12 | HISTORY & PHYSICAL EXAMINATION ---
Chief Complaint - Chief Complaint Chief Complaint: SOB, wheezing Respiratory Admission HPI - Admitted From Admitted from: ED - History Obtained From Records Reviewed: RN notes reviewed, Old records reviewed History obtained from: Patient, Family Exam limitations: No limitations - History of Present Illness Severity at the worst: reports: Moderate HPI Comment/Other: Patient is a 71-year-old female longstanding history of COPD, still smokes, PE/DVT on Xarelto. HTN, HLP. OA, etoh liver cirrhosis, She continues to drink. Patient recently discharged on 07/04 for similar presentation of COPD exacerba tion with acute on chronic hypoxemic/hypercapnic respiratory failure. Patient received up to 4 nebulizer treatments with ongoing wheezing in the emergency department and given Solu-Medrol 125 mg IV x1.Patient continues to wheeze despite treatment and with a rest/walk study showing desaturations to 88% on 1-2 L NC. Unremarkable, CO2 of 35, patient complains of productive cough but denies fevers, nausea, emesis, chest pain, palpitations, hemoptysis, GI/ symptoms, NETWORK MANAGEMENT SPECIALIST rash or joint tenderness. Hospitalist service was requested on further evaluation management treatment. PMH/PSH - Past Medical History Cardiovascular: positive: Hypertension, High cholesterol, Deep vein thrombosis, Pulmonary embolism Respiratory: positive: COPD, Emphysema Neuro: positive: None Endocrine/Autoimmune: positive: None GI: positive: Cirrhosis COLLEGE ATHLETIC DIRECTOR: positive: Breast cancer : positive: Incontinence HEENT: positive: None Psych: positive: Depression, Anxiety Musculoskeletal: positive: Osteoarthritis, Osteoporosis, Chronic back pain Derm: positive: None MRSA Hx?: No - Past Surgical History General: positive: Colonoscopy, EGD /COLLEGE ATHLETIC DIRECTOR: positive: Other Social & Family Hx - Living Situation Living Arrangement: At home - Social History Does the pt smoke?: Yes Smoking Status: Current every day smoker Does the pt drink ETOH?: Yes Does the pt have substance abuse?: No - POLST Patient has POLST: No POLST Status: DNR (Please see advance care planning discussion) - Family History Family History Comment/Other: Noncontributory Meds/Allgy - Home Medications Home Medications: Ambulatory Orders Medication Instructions Recorded Confirmed Propranolol [Inderal] 10 mg PO BID 09/21/18 07/03/21 Albuterol Sulfate [Proair Hfa 2 puffs INH Q4H PRN 05/13/20 07/03/21 Inhaler] Furosemide [Lasix] 40 mg PO DAILY 06/19/20 07/03/21 Montelukast [Singulair] 10 mg PO QPM 06/19/20 07/03/21 Rivaroxaban [Xarelto] 10 mg PO DAILY 06/19/20 07/03/21 Spironolactone [Aldactone] 50 mg PO DAILY 06/19/20 07/03/21 Tiotropium [place] [Spiriva] 1 puffs INH DAILY 06/19/20 07/03/21 Nicotine 14 mg Patch [Nicoderm] 1 patch TOP DAILY patch 06/22/20 07/03/21 Pantoprazole [Protonix] 40 mg PO QDAC #40 tablet 06/22/20 07/03/21 Lactulose 15 ml PO TID 07/28/20 07/03/21 Pnv No.95/Ferrous Fum/Folic AC 1 each PO DAILY #30 tablet 08/01/20 07/03/21 [ Tablet] Thiamine [Vitamin B-1] 100 mg PO DAILY #30 tablet 08/01/20 07/03/21 Ipratropium/Albuterol [Combivent 2 puffs IH QID #1 inh 07/04/21 Respimat] levoFLOXacin [Levaquin] 750 mg PO DAILY #3 tablet 07/04/21 methylPREDNISolone [Medrol Dose 1 each PO .PACKAGEINSTRUCTIONS 6 07/04/21 Pack] Days #1 each - Allergies Allergies/Adverse Reactions: Allergies Allergy/AdvReac Type Severity Reaction Status Date / Time Latex, Natural Rubber Allergy Rash Verified 07/28/21 13:46 lisinopril Allergy Respiratory Verified 07/28/21 13:46 Review of Systems - Constitutional Constitutional: reports: Fatigue, Weakness. denies: Fever, Chills, Weight loss - Eyes Eyes: denies: Field loss, Vision loss - Ears, Nose & Throat Ears, Nose & Throat: denies: Nosebleeds, Nasal congestion - Cardiovascular Cariovascular: denies: Irregular heart rate, Palpitations, Chest pain, Orthopnea - Respiratory Respiratory: reports: Cough, Sputum production, Wheezing. denies: Hemoptysis - Gastrointestinal Gastrointestinal: denies: Abdominal pain, Abdominal distention, Constipation, Diarrhea, Nausea, Vomiting, Reflux/heartburn - Genitourinary Genitourinary: denies: Dysuria, Frequency, Urgency, Hematuria - Musculoskeletal Musculoskeletal: denies: Muscle pain, Back pain, Muscle aches - Integumentary Integumentary: denies: Rash, Pigment changes - Neurological Neurological: denies: Dizziness, Numbness, Memory problems - Psychiatric Psychiatric: denies: Depression, Anxiety, Hallucinations - Endocrine Endocrine: denies: Polyuria, Polydypsia, Polyphagia, Intolerance to cold - Hematologic/Lymphatic Hematologic/Lymphatic: reports: Blood clots. denies: Anemia - All Other Systems All Other Systems: reports: Reviewed and negative Prior Level of Functionality: Patient typically walks independently at home. Exam - Vital Signs Vital Signs: Vital Signs x48h Temp Pulse Resp BP Pulse Ox 07/28/21 17:30 93 28 H 133/71 H 97 07/28/21 17:05 88 L 07/28/21 17:00 96 23 140/84 H 96 07/28/21 16:30 96 24 132/100 H 99 07/28/21 16:00 92 25 H 133/74 H 97 07/28/21 15:34 101 H 22 114/90 H 95 07/28/21 15:04 96 20 07/28/21 13:43 37.1 C 103 H 31 H 147/82 H 97 - Physical Exam General Appearance: positive: Alert, Mild distress Eyes Bilateral: positive: Normal inspection, PERRL, EOMI. negative: No scleral icterus ENT: positive: ENT inspection nml, Pharynx nml, No signs of dehydration Neck: positive: Nml inspection, Thyroid nml, No JVD, Trachea midline. negative: Thyromegaly, Carotid bruit Respiratory: positive: Chest non-tender, Wheezes, Rhonchi. negative: Rales Cardiovascular: positive: Regular rate & rhythm, No murmur, No gallop, Irr egularly irregular. negative: JVD present, Gallop/S4 Peripheral Pulses: positive: 2+ Abdomen: positive: Non-tender, No organomegaly, Nml bowel sounds, No distention. negative: Splenomegaly, Bruit Back: positive: Nml inspection Skin: positive: No rash, Warm, Dry, Cyanosis, Other (Clubbing to bilateral digits). negative: Pallor, Skin rash Extremities: positive: Non-tender, Full ROM, Nml appearance. negative: No pedal edema Neurologic/Psychiatric: positive: Oriented x3, CN's nml (2-12) Results - Lab Results Fish Bones: 07/28/21 14:52 07/28/21 14:52 Other Lab Results: Lab Results x24hrs 07/28/21 07/28/21 07/28/21 Range/Units 15:32 14:52 14:52 WBC 8.5 (4.8-10.8) x10^3/uL RBC 4.75 (4.20-5.40) 10^6/uL Hgb 15.3 (12.0-16.0) g/dL Hct 48.8 H (37.0-47.0) % MCV 102.7 H (81.0-99.0) fL MCH 32.2 H (27.0-31.0) pg MCHC 31.4 L (32.0-36.0) g/dL RDW 13.5 (12.0-15.0) % Plt Count 178 (130-450) 10^3/uL MPV 10.7 (7.9-10.8) fL Neut # (Auto) 7.0 H (1.5-6.6) 10^3/uL Lymph # (Auto) 0.6 L (1.5-3.5) 10^3/uL [place] # (Auto) 0.8 (0.0-1.0) 10^3/uL Eos # (Auto) 0.0 (0.0-0.7) 10^3/uL Baso # (Auto) 0.0 (0.0-0.1) 10^3/uL Absolute Nucleated RBC 0.00 x10^3/uL Nucleated RBC % 0.0 /100WBC Sodium 138 (135-145) mmol/L Potassium 4.0 (3.5-5.0) mmol/L Chloride 94 L (101-111) mmol/L Carbon Dioxide 35 H (21-32) mmol/L Anion Gap 9.0 (6-13) BUN 5 L (6-20) mg/dL Creatinine 0.3 L (0.4-1.0) mg/dL Estimated GFR (MDRD) 218 (>89) Glucose 124 H (70-100) mg/dL Calcium 9.1 (8.5-10.3) mg/dL Total Bilirubin 0.8 (0.2-1.0) mg/dL AST 30 (10-42) IU/L ALT 14 (10-60) IU/L Alkaline Phosphatase 109 (42-121) IU/L Total Protein 6.0 L (6.7-8.2) g/dL Albumin 3.1 L (3.2-5.5) g/dL Globulin 2.9 (2.1-4.2) g/dL Albumin/Globulin Ratio 1.1 (1.0-2.2) Nasal Adenovirus (PCR) NOT DETECTED Nasal B. parapertussis DNA (PCR) NOT DETECTED Nasal Coronavir 229E PCR NOT DETECTED Nasal Coronavir HKU1 PCR NOT DETECTED Nasal Coronavir NL63 PCR NOT DETECTED Nasal Coronavir OC43 PCR NOT DETECTED Nasal Enterovir/Rhinovir PCR NOT DETECTED Nasal Influenza B PCR NOT DETECTED Nasal Influenza A PCR NOT DETECTED Nasal Parainfluen 1 PCR NOT DETECTED Nasal Parainfluen 2 PCR NOT DETECTED Nasal Parainfluen 3 PCR NOT DETECTED Nasal Parainfluen 4 PCR NOT DETECTED Nasal RSV (PCR) NOT DETECTED Nasal B.pertussis DNA PCR NOT DETECTED Nasal C.pneumoniae (PCR) NOT DETECTED [place] Human Metapneumo PCR NOT DETECTED Nasal M.pneumoniae (PCR) NOT DETECTED Nasal SARS-CoV-2 (PCR) NOT DETECTED Impression/Plan - Problem List Problem List: Assessment/plan: 1. Acute hypoxemic/hypercapnic respiratory failure Patient recently discharged on 07/04/21 for similar COPD exacerbation presentation. Patient's respiratory viral panel was negative her COVID test was negative. CXR shows no active pneumonia, however given her COPD exacerbation will place on antibiotics with azithromycin/Omnicef combination. Placed on duo nebs plus Pulmicort, I-S, pulmonary toilet, consider Mucinex lytic therapies, Singulair to continue, smoking cessation strongly advised. VBG to follow. Patient is typically on 1-1.5L and has gone up to 3 L at home in the past 3 days . Continue O2 supplementation to titrate above 88-90% pulse ox. Patient warrants palliative care consultation given her multiple admissions for the same. 2. COPD exacerbation Medical management as per above 3. History of pulmonary embolism Continue with Xarelto 4. Alcohol liver cirrhosis Patient with ongoing alcohol abuse but denies DTs. Defer off CIWA. Defer off Ativan for now. Continue with patient's Aldactone, lactulose, propanolol however this would be a nonbeta selective and may contribute to her COPD exacerbation will hold for now. Continue with Lasix. Continue with PPI. Does not appear to have pancytopenia as it pertains to her ongoing alcohol abuse, alcohol cessation strongly advised. FA, MVI, thiamine. 5. Hypertension Patient on Aldactone and Lasix and on propanolol for her liver cirrhosis. 6. Hyperlipidemia Does not appear to be on a statin 7. Tobacco use disorder, continuous Given patient's multiple COPD exacerbation and admissions for the same patient s trongly advised on tobacco cessation and nicotine patch with replacement therapy. Consider placing patient on Wellbutrin as outpatient. DVT prophylaxis: On a PPI CODE STATUS: DNR/DNI status. Core Measures - Anticipated LOS I expect patient to be DC'd or transferred within 96 hours.: Yes - DVT/VTE - Prophylaxis VTE/DVT Prophylaxis med ordered at admit?: No Not Ordered - Medical Reason: Contraindicated (On xarelto) - Stroke - Rehab Assessment Rehab services assessment to be ordered?: No - AMI - Statin at Admit Aspirin Prescribed on Admit: No
[2021-07-28] MEDS ORDERED: ALPRAZolam 0.25 MG TABLET PO PRN (18:25)
[2021-07-28] MEDS: ACETAMINOPHEN 325 MG TABLET PO PRN (19:08)
[2021-07-28] MEDS: cefTRIAXone 1 GM in SODIUM CHLORIDE 0.9% MINIBAG 100 ML IV SCH (19:12)
[2021-07-28] MEDS: AZITHROMYCIN 250 MG TABLET PO SCH (19:14)
[2021-07-28] MEDS: BUDESONIDE 0.5 MG/2 ML NEB INH SCH (19:50)
[2021-07-28] MEDS: IPRATROPIUM/ALBUTEROL 3 ML NEB INH SCH (19:50)
[2021-07-28] MEDS ORDERED: MONTELUKAST 10 MG TABLET PO SCH (21:00)
[2021-07-28] MEDS: guaiFENesin 600 MG TABLET PO SCH (21:39)
[2021-07-28] MEDS: methylPREDNISolone SUCCINATE 40 MG/ML VIAL IVP SCH (21:40)
[2021-07-28] MEDS: MIN OIL/DIMETHICON/COCONUT OIL 92 GM TUBE TOP PRN ×2 (21:40→22:41)
[2021-07-28] MEDS: LACTULOSE 10 GM /15 ML UDC PO SCH (21:40)
[2021-07-29] MEDS: SODIUM CHLORIDE FLUSH 0.9% 10 ML SYRINGE IVP SCH ×3 (00:02→17:40)
[2021-07-29] MEDS: methylPREDNISolone SUCCINATE 40 MG/ML VIAL IVP SCH (05:24)
[2021-07-29] MEDS ORDERED: PANTOPRAZOLE 40 MG TABLET PO SCH (07:00)
[2021-07-29] MEDS: BUDESONIDE 0.5 MG/2 ML NEB INH SCH (07:19)
[2021-07-29] MEDS: IPRATROPIUM/ALBUTEROL 3 ML NEB INH SCH ×3 (07:20→15:28)
[2021-07-29] MEDS ORDERED: MULTIVITAMIN TABLET PO SCH (08:00)
[2021-07-29] MEDS ORDERED: FOLIC ACID 1 MG TABLET PO SCH (09:00)
[2021-07-29] MEDS ORDERED: NICOTINE 14 MG PATCH TOP SCH (09:00)
[2021-07-29] MEDS ORDERED: THIAMINE 100 MG TABLET PO SCH (09:00)
[2021-07-29] MEDS: ACETAMINOPHEN 325 MG TABLET PO PRN (09:30)
[2021-07-29] MEDS: LACTULOSE 10 GM /15 ML UDC PO SCH (10:08)
[2021-07-29] MEDS: AZITHROMYCIN 250 MG TABLET PO SCH (10:08)
[2021-07-29] MEDS: cefTRIAXone 1 GM in SODIUM CHLORIDE 0.9% MINIBAG 100 ML IV SCH (10:09)
[2021-07-29] MEDS: guaiFENesin 600 MG TABLET PO SCH (10:09)
--- NOTE | 2021-07-29 12:38 | PHARMACY PROGRESS NOTE ---
- Best Possible Medication History Admit Date and Time: 07/28/21 1734 Processed by: Pharmacy Medication History completed: Yes Patient Interview: Completed Secondary Source(s): Insurance records As the person ultimately responsible for medication therapy, providers are able to order a medication from an existing home medication list in [facility] via the "Reconcile Routine" prior to Confirmation of that medication by server support technician. Such practice is discouraged except when the physician, in their clinical judgment, deems that a medical need exists for a medication without regard to previous use.
--- NOTE | 2021-07-29 15:16 | DISCHARGE SUMMARY ---
"Discharge Summary Admit Date: 07/28/21 Discharge Date: 07/29/21 Discharging Provider: Dr. Quintero Primary Care Provider: Ami Hayden Code Status: Do Not Attempt Resuscitation Condition at Discharge: Good Discharge Disposition: 01 Home, Self Care Discharge Facility Name: [facility] - DIAGNOSES Admission Diagnoses: 1. Acute hypoxemic/hypercapnic respiratory failure 2. COPD exacerbation 3. History of pulmonary embolism 4. Alcohol liver cirrhosis 5. Hypertension 6. Hyperlipidemia 7. Tobacco use disorder, continuous Discharge Diagnoses with Status of Each Condition: 1. Acute hypoxemic/hypercapnic respiratory failure---stable 2. COPD exacerbation---resolved 3. History of pulmonary embolism----stable 4. Alcohol liver cirrhosis---stable 5. Hypertension----stable 6. Hyperlipidemia----stable 7. Tobacco use disorder, continuous - HPI History of Present Illness: Patient is a 71-year-old female longstanding history of COPD, still smokes, PE/DVT on Xarelto. HTN, HLP. OA, etoh liver cirrhosis, She continues to drink. Patient recently discharged on 07/04 for similar presentation of COPD exacerbation with acute on chronic hypoxemic/hypercapnic respiratory failure. Patient received up to 4 nebulizer treatments with ongoing wheezing in the emergency department and given Solu-Medrol 125 mg IV x1.Patient continues to wheeze despite treatment and with a rest/walk study showing desaturations to 88% on 1-2 L NC. 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 Hospitalist service was requested on further evaluation management treatment. - CONSULTS | PROCEDURES Consultations: None Procedures: None - HOSPITAL COURSE Hospital Course: Patient has severe COPD but continues to smoke despite this being a trigger to her COPD exacerbation. Patient was treated with IV Solu-Medrol and transitioned over to p.o. prednisone for which she will be taking a Medrol pack and Levaquin as an outpatient. She understands that her smoking cessation is rankin to improving her COPD recurrence in terms of exacerbation and acute on chronic hypoxemic/hypercapnic respiratory failure as she was weaned down to 1.5 L which is patient's home O2 baseline. Patient's productive cough improved and she did tolerate physical therapy prior to discharge. Her wheezing had dramatically resolved with residual prolonged expiratory phase and rhonchi persisting. Patient to resume all her home medications as it pertains to her history of PE for which she takes Xarelto and her history of alcoholic cirrhosis for which she takes Lasix and Aldactone and will encourage on medical compliance. Would query on the fact that she is on propanolol which is a nonselective beta-kita and may be contributing to patient's COPD exacerbation and will likely place a hold on this as an outpatient. Patient will need palliative care consultation due to multiple readmissions for COPD exacerbation. She is encouraged on smoking cessation and will start on Wellbutrin to improve smoking cessation and relapse. Also has been counseled on alcohol cessation as it pertains to her liver cirrhosis. - ALLERGIES Allergies/Adverse Reactions: Allergies Allergy/AdvReac Type Severity Reaction Status Date / Time Latex, Natural Rubber Allergy Rash Verified 07/28/21 13:46 lisinopril Allergy Respiratory Verified 07/28/21 13:46 - MEDICATIONS Home Medications: Ambulatory Orders Medication Instructions Recorded Confirmed Acetaminophen [Acetaminophen Extra 500 mg PO Q8H PRN 07/29/21 07/29/21 Strength] Albuterol Sulfate [Proair Hfa 2 puffs INH Q4H PRN 07/29/21 07/29/21 Inhaler] Fluticasone/Salmeterol [Advair 2 puffs INH BID 07/29/21 07/29/21 250-50 Diskus] Furosemide [Lasix] 40 mg PO DAILY 07/29/21 07/29/21 Ipratropium/Albuterol [Duoneb] 3 ml INH QID 07/29/21 07/29/21 Lactulose 15 ml PO TID 07/29/21 07/29/21 Montelukast [Singulair] 10 mg PO QPM 07/29/21 07/29/21 Multivitamin 1 tab PO QPM 07/29/21 07/29/21 Nicotine 14 mg Patch [Nicoderm] 1 patch TOP DAILY 07/29/21 07/29/21 Pantoprazole [Protonix] 40 mg PO DAILY 07/29/21 07/29/21 Rivaroxaban [Xarelto] 10 mg PO DAILY 07/29/21 07/29/21 Spironolactone [Aldactone] 50 mg PO DAILY 07/29/21 07/29/21 Tiotropium [place] [Spiriva] 18 mcg INH QPM 07/29/21 07/29/21 buPROPion [Wellbutrin Xl] 150 mg PO DAILY #30 tablet 07/29/21 levoFLOXacin [Levaquin] 500 mg PO DAILY 4 Days #4 tablet 07/29/21 methylPREDNISolone [Medrol Dose 1 each PO .PACKAGEINSTRUCTIONS 6 07/29/21 Pack] Days #1 each - PHYSICAL EXAM AT DISCHARGE General Appearance: positive: No acute distress, Alert, Mild distress, Other (Chronically ill/cachectic appearing) Eyes Bilateral: positive: Normal inspection, PERRL, EOMI ENT: positive: ENT inspection nml, Pharynx nml, No signs of dehydration Neck: positive: Nml inspection, Thyroid nml, No JVD, Trachea midline. negative: Thyromegaly Respiratory: positive: Chest non-tender, No respiratory distress, Breath sounds nml, Rhonchi. negative: Wheezes, Rales Cardiovascular: positive: Regular rate & rhythm, No murmur, No gallop. negat benito: JVD present, Gallop/S4, Friction rub Peripheral Pulses: positive: 2+ Abdomen: positive: Non-tender, No organomegaly, Nml bowel sounds, No distention. negative: Tenderness, Hepatomegaly, Splenomegaly Back: positive: Nml inspection, CVA tenderness (R) Skin: positive: Color nml, No rash, Cyanosis, Other (Bilateral clubbing with minimal cyanosis to digits). negative: Diaphoresis, Pallor, Skin rash Extremities: positive: Non-tender, Full ROM, Nml appearance. negative: Calf tenderness, Eleanor's sign/cords Neurologic/Psychiatric: positive: Oriented x3, CN's nml (2-12) - LABS Result Diagrams: 07/28/21 14:52 07/28/21 14:52 - QUALITY (Female Hip Fx Only) Was patient sent home on osteoporosis medication?: No - FOLLOW UP Follow Up: Patient to follow-up with PCP in 1 to 2 weeks and to take all p.o. medications as prescribed. Will need to follow-up with palliative care services as outpatient due to her severe COPD and multiple readmissions for similar COPD exacerbations. - TIME SPENT Time Spent in Discharge (Minutes): 40"
[2021-07-29 15:52] VITALS: BP 114/51
--- NOTE | 2021-07-29 16:38 | Discharge Plan ---
Discharge Plan Problem Reviewed?: Yes Disposition: Home, Self Care Condition: Good Prescriptions: levoFLOXacin [Levaquin] 500 mg PO DAILY 4 Days #4 tablet methylPREDNISolone [Medrol Dose Pack] 1 each PO .PACKAGEINSTRUCTIONS 6 Days #1 each guaiFENesin [Mucinex] 1,200 mg PO BID 10 Days #40 tablet buPROPion [Wellbutrin Xl] 150 mg PO DAILY #30 tablet Diet: Low Sodium Activity Restrictions: Activity as Tolerated Shower Restrictions: No Driving Restrictions: Yes Weight Bearing: Full Weight Health Concerns: Please stop smoking and drinking. Plan of Treatment: F/u PCP in 1-2 weeks. Cardiopulmonary referral for ongoing COPD care and preventative measures to reduce recurrence of exacerbation. Take all PO meds as prescribed. Keep all appointments. Care Goals: Continue ongoing nebulizers at home, mucinolytic tx, finish antibiotics and medrol pack as instructed and resume all home meds with the exception of propranolol as this may worsen your COPD. Follow-Up Care: [facility], [facility] (f/u with cardiopulmonary rehab) No Smoking: If you smoke, Please STOP! Call for help. Follow-up with: Ami Hayden MD [Primary Care Provider] -
[2021-07-29] MEDS ORDERED: APIXABAN 2.5 MG TABLET PO SCH (21:00)
[2021-07-30] MEDS ORDERED: predniSONE 20 MG TABLET PO SCH (08:00)
[2021-07-30] MEDS ORDERED: FUROSEMIDE 40 MG TABLET PO SCH (09:00)
[2021-07-30] MEDS ORDERED: SPIRONOLACTONE 25 MG TABLET PO SCH (09:00)
== END 2021-07-29 18:19 | disposition home or self-care (01) ==
LOC: ED 13:42 → MS2 17:34
PROVIDERS: ADMIT Family Medicine; ATTEND Family Medicine
DX: J96.02 Acute respiratory failure with hypercapnia (principal); J96.01 Acute respiratory failure with hypoxia; J43.9 Emphysema, unspecified; K70.30 Alcoholic cirrhosis of liver without ascites; I10 Essential (primary) hypertension; E78.5 Hyperlipidemia, unspecified; Z20.822 Contact with and (suspected) exposure to COVID-19; Z66 Do not resuscitate; F32.A Depression, unspecified; F41.9 Anxiety disorder, unspecified; Z86.711 Personal history of pulmonary embolism; Z86.718 Personal history of other venous thrombosis and embolism; Z79.01 Long term (current) use of anticoagulants; Z99.81 Dependence on supplemental oxygen; Z85.3 Personal history of malignant neoplasm of breast; R32 Unspecified urinary incontinence; F17.200 Nicotine dependence, unspecified, uncomplicated
CPT/HCPCS: 36415; 71046; 80053; 84145; 85025; 87633; 93005; 94640; 94664; 96365; 96366; 96375; 96376; 97163; 97165; 99285; A6250; A9270; G0378; J7626

== ENCOUNTER 2021-08-09 19:40 | Emergency (ER) | payer MEDICARE, OTHER ==
[2021-08-09] MEDS ORDERED: IPRATROPIUM/ALBUTEROL 3 ML NEB INH STA (19:52)
[2021-08-09 20:07] LABS: BASOPHILS % (AUTO) 0.3 %; HCT - HEMATOCRIT 52.7 % (37.0-47.0); HGB - HEMOGLOBIN 16.2 g/dL (12.0-16.0); LYMPHOCYTES # (AUTO) 0.6 10^3/uL (1.5-3.5); LYMPHOCYTES % (AUTO) 6.6 %; MEAN CORPUSCULAR HEMOGLOBIN 32.2 pg (27.0-31.0); MEAN CORPUSCULAR HGB CONC 30.7 g/dL (32.0-36.0); MEAN CORPUSCULAR VOLUME 104.8 fL (81.0-99.0); MEAN PLATELET VOLUME 10.8 fL (7.9-10.8); MONOCYTES # (AUTO) 0.5 10^3/uL (0.0-1.0); MONOCYTES % (AUTO) 5.3 %; NEUTROPHILS # (AUTO) 8.5 10^3/uL (1.5-6.6); NEUTROPHILS % (AUTO) 87.5 %; PLT - PLATELET COUNT 266 10^3/uL (130-450); RED BLOOD COUNT 5.03 10^6/uL (4.20-5.40); RED CELL DISTRIBUTION WIDTH 13.7 % (12.0-15.0); WHITE BLOOD COUNT 9.7 x10^3/uL (4.8-10.8)
[2021-08-09] MEDS ORDERED: ACETAMINOPHEN 650 MG SUPP PR STA (20:28)
[2021-08-09] MEDS ORDERED: methylPREDNISolone SUCCINATE 125 MG/2 ML VIAL IVP STA (20:28)
[2021-08-09 20:29] LABS: ALBUMIN 3.4 g/dL (3.2-5.5); BILIRUBIN,TOTAL 0.2 mg/dL (0.2-1.0); CREATININE 0.3 mg/dL (0.4-1.0); POTASSIUM 4.9 mmol/L (3.5-5.0); TOTAL PROTEIN 6.9 g/dL (6.7-8.2)
[2021-08-09] MEDS ORDERED: ACETAMINOPHEN 325 MG TABLET PO STA (20:33)
--- NOTE | 2021-08-09 20:46 | ED Physician Documentation ---
History of Present Illness - Stated complaint Stated Complaint: CP - Chief complaint Chief Complaint: Cardiac - History obtained from History obtained from: Patient - History of Present Illness Timing: Today Pain level max: 6 Pain level now: 3 - Additonal information Additional information: Patient is a 71-year-old female who presents to the emergency department with chest pain today. Started about 6 hours prior to arrival, described as sharp. Nonradiating. Feels better after breathing treatments, nothing makes it worse. History of COPD. Still smokes. Recently started home O2. No fevers. No chills. Chronic cough is unchanged. She is not currently on steroids at home. The chest pain has been constant. Review of Systems Ten Systems: 10 systems reviewed and negative Constitutional: denies: Fever, Chills Nose: denies: Rhinorrhea / runny nose, Congestion Throat: denies: Sore throat Cardiac: reports: Chest pain / pressure (Sharp, central chest.) Respiratory: reports: Dyspnea, Wheezing. denies: Cough GI: denies: Abdominal Pain, Nausea, Vomiting, Diarrhea : denies: Dysuria Skin: denies: Rash Musculoskeletal: denies: Neck pain, Back pain Neurologic: denies: Headache PD PAST MEDICAL HISTORY - Past Medical History Past Medical History: Yes Cardiovascular: Hypertension, High cholesterol, Deep vein thrombosis, Pulmonary embolism Respiratory: COPD, Emphysema Neuro: None Endocrine/Autoimmune: None GI: Cirrhosis [employer]: Breast cancer : Incontinence HEENT: None Psych: Depression, Anxiety Musculoskeletal: Osteoarthritis, Osteoporosis, Chronic back pain Derm: None - Past Surgical History Past Surgical History: Yes General: Colonoscopy, EGD /[employer]: Other - Present Medications Home Medications: Ambulatory Orders Medication Instructions Recorded Confirmed Acetaminophen [Acetaminophen Extra 500 mg PO Q8H PRN 07/29/21 07/29/21 Strength] Albuterol Sulfate [Proair Hfa 2 puffs INH Q4H PRN 07/29/21 07/29/21 Inhaler] Fluticasone/Salmeterol [Advair 2 puffs INH BID 07/29/21 07/29/21 250-50 Diskus] Furosemide [Lasix] 40 mg PO DAILY 07/29/21 07/29/21 Ipratropium/Albuterol [Duoneb] 3 ml INH QID 07/29/21 07/29/21 Lactulose 15 ml PO TID 07/29/21 07/29/21 Montelukast [Singulair] 10 mg PO QPM 07/29/21 07/29/21 Multivitamin 1 tab PO QPM 07/29/21 07/29/21 Nicotine 14 mg Patch [Nicoderm] 1 patch TOP DAILY 07/29/21 07/29/21 Pantoprazole [Protonix] 40 mg PO DAILY 07/29/21 07/29/21 Rivaroxaban [Xarelto] 10 mg PO DAILY 07/29/21 07/29/21 Spironolactone [Aldactone] 50 mg PO DAILY 07/29/21 07/29/21 Tiotropium [place] [Spiriva] 18 mcg INH QPM 07/29/21 07/29/21 buPROPion [Wellbutrin Xl] 150 mg PO DAILY #30 tablet 07/29/21 guaiFENesin [Mucinex] 1,200 mg PO BID 10 Days #40 tablet 07/29/21 levoFLOXacin [Levaquin] 500 mg PO DAILY 4 Days #4 tablet 07/29/21 methylPREDNISolone [Medrol Dose 1 each PO .PACKAGEINSTRUCTIONS 6 07/29/21 Pack] Days #1 each predniSONE [Deltasone] 10 mg PO [id number] #42 tab 08/09/21 - Allergies Allergies/Adverse Reactions: Allergies Allergy/AdvReac Type Severity Reaction Status Date / Time Latex, Natural Rubber Allergy Rash Verified 08/09/21 19:51 lisinopril Allergy Respiratory Verified 08/09/21 19:51 - Social History Does the pt smoke?: Yes Smoking Status: Current every day smoker Does the pt drink ETOH?: Yes Does the pt have substance abuse?: No - Immunizations Immunizations are current?: Yes - POLST Patient has POLST: No POLST Status: DNR (Please see advance care planning discussion) PD ED PE NORMAL - Vitals Vital signs reviewed: Yes - General General: Alert and oriented X 3, No acute distress, Well developed/nourished - HEENT HEENT: PERRL, Moist mucous membranes - Neck Neck: Supple, no meningeal sign - Cardiac Cardiac: RRR - Respiratory Respiratory: Other (Wheezing bilaterally) - Abdomen Abdomen: Soft, Non tender, Non distended - Derm Derm: Warm and dry, No rash - Extremities Extremities: No edema - Neuro Neuro: Alert and oriented X 3 - Psych Psych: Normal mood, Normal affect Results - Vitals Vitals: Vital Signs - 24 hr 08/09/21 08/09/21 08/09/21 19:51 19:57 20:00 Temperature 36.2 C L Heart Rate 100 96 98 Respiratory 25 H 22 22 Rate Blood Pressure 167/94 H 167/94 H O2 Saturation 66 L 98 08/09/21 08/09/21 08/09/21 20:36 21:00 21:30 Temperature Heart Rate 86 81 87 Respiratory 34 H 24 25 H Rate Blood Pressure 133/70 H 145/70 H 137/75 H O2 Saturation 98 99 98 Oxygen O2 Source [] Nasal cannula O2 Source [] Nasal cannula O2 Source Nasal cannula - EKG (time done) 194 Rate: Rate (enter#) (101) Rhythm: Sinus tachycardia [place]: Normal Intervals: Normal [place] QRS: Normal Ischemia: Non specific changes - Labs Labs: Laboratory Tests 08/09/21 08/09/21 08/09/21 20:00 20:00 20:00 WBC 9.7 RBC 5.03 Hgb 16.2 H Hct 52.7 H MCV 104.8 H MCH 32.2 H MCHC 30.7 L RDW 13.7 Plt Count 266 MPV 10.8 Neut # (Auto) 8.5 H Lymph # (Auto) 0.6 L [place] # (Auto) 0.5 Eos # (Auto) 0.0 Baso # (Auto) 0.0 Absolute Nucleated RBC 0.00 Nucleated RBC % 0.0 Sodium 134 L Potassium 4.9 Chloride 88 L Carbon Dioxide 38 H Anion Gap 8.0 BUN 11 Creatinine 0.3 L Estimated GFR (MDRD) 218 Glucose 137 H Calcium 9.0 Total Bilirubin 0.2 AST 27 ALT 17 Alkaline Phosphatase 108 Troponin I High Sens 7.8 Total Protein 6.9 Albumin 3.4 Globulin 3.5 Albumin/Globulin Ratio 1.0 Lipase 31 - Rads (name of study) Chest x-ray Radiology: Final report received, EMP read contemporaneously, See rad report (No acute abnormality) PD MEDICAL DECISION MAKING - ED course Complexity details: reviewed results, re-evaluated patient, considered differential (No ST elevation CA, no aortic dissection, no PE, no tension pneumothorax, no aortic aneurysm), d/w patient, d/w family ED course: 71-year-old female with a longstanding history of COPD, oxygen dependent present s with chest pain and hypoxia. She was given Solu-Medrol and a DuoNeb treatment. Breathing greatly improved, she states that she feels much better and the chest pain has resolved. EKG without acute abnormalities. High- sensitivity troponin is negative after greater than 6 hours of symptoms. The chest pain fully resolved with breathing treatments. No hypoxia. Ambulating well. Patient and family counseled regarding signs and symptoms for which I believe and urgent re-evaluation would be necessary. Patient with good understanding of and agreement to plan and is comfortable going home at this time This document was made in part using voice recognition software. While efforts are made to proofread this document, sound alike and grammatical errors may occur. Departure - Departure Disposition: Home, Self Care Clinical Impression: COPD exacerbation Chest pain Qualifiers: Chest pain type: unspecified Qualified Code(s): R07.9 - Chest pain, unspecified Condition: Good Instructions: ED COPD Flare Follow-Up: STACY PRAKASH MD [Primary Care Provider] - Within 3 Days Prescriptions: predniSONE [Deltasone] 10 mg PO [id number] #42 tab Comments: We will place you on steroids for home. Continue your nebulizer treatments as prescribed. I would recommend that you be on 2 L of oxygen at home. Return if you worsen.
--- NOTE | 2021-08-09 20:54 | XRAY Report ---
PROCEDURE: Chest 1 View X-Ray INDICATIONS: Chest Pain TECHNIQUE: One view of the chest was acquired. COMPARISON: 07/28/2021 and 07/02/2021 FINDINGS: Surgical changes and devices: Postsurgical changes project over the left chest.. Lungs and pleura: No pleural effusions or pneumothorax. Lungs are clear. Mediastinum: Mediastinal contours appear normal. Heart size is normal. Bones and chest wall: No suspicious bony lesions. Overlying soft tissues appear unremarkable. IMPRESSION: Stable examination of the chest without acute cardiopulmonary abnormalities. Reviewed by: Arik Jimenes MD on 08/09/2021 8:52 PM PDT Approved by: Arik Jimenes MD on 08/09/2021 8:52 PM PDT Station ID: [id number]
[2021-08-09] MEDS ORDERED: ALBUTEROL NEB 2.5 MG/3 ML INH STA (21:10)
[2021-08-09 21:57] VITALS: BP 135/76
== END 2021-08-09 22:14 | disposition home or self-care (01) ==
LOC: ED 19:40
DX: J44.1 Chronic obstructive pulmonary disease with (acute) exacerbation (principal); R07.9 Chest pain, unspecified; F17.200 Nicotine dependence, unspecified, uncomplicated; Z66 Do not resuscitate
CPT/HCPCS: 36415; 71045; 80053; 83690; 84484; 85025; 93005; 94640; 96374; 99284; A9270

== ENCOUNTER 2021-08-26 19:41 | Outpatient (CLI) | payer MEDICARE, OTHER | END 2021-08-26 19:42 | disposition critical access hospital (66) | LOC: EMS 19:41 | DX: I46.9 Cardiac arrest, cause unspecified (principal) | CPT/HCPCS: A0425; A0433 ==

== ENCOUNTER 2021-08-26 19:53 | Emergency (ER) | payer MEDICARE, OTHER ==
--- NOTE | 2021-08-26 20:10 | ED Physician Documentation ---
History of Present Illness - Stated complaint Stated Complaint: ROSC - Chief complaint Chief Complaint: Cardiac - History obtained from History obtained from: Family, EMS - Additonal information Additional information: Patient is a 71-year-old female with a long complicated medical history. History of end-stage COPD, alcohol abuse, alcoholism with cirrhosis, chronic respiratory failure, continues to smoke daily. Apparently the last time she was seen today was about an hour and a half prior to arrival. They found the patient in cardiac arrest at approximately 1915. EMS states that CPR was started by family. They continued CPR. She has had at least 6 rounds of epinephrine, amiodarone, defibrillated x1. She has had 2 episodes of ROSC, 1 lasted 1 to 2 minutes, the other lasted about 7 to 8 minutes. She lost pulses again just prior to arrival to the ER. She has now been in cardiac arrest for approximately 45 minutes to 1 hour minus the total of 10 minutes of ROSC. Review of Systems Unable to obtain: Unresponsive, Intubated PD PAST MEDICAL HISTORY - Past Medical History Cardiovascular: Hypertension, High cholesterol, Deep vein thrombosis, Pulmonary embolism Respiratory: COPD, Emphysema Neuro: None Endocrine/Autoimmune: None GI: Cirrhosis [employer]I [employer]PER: Breast cancer : Incontinence HEENT: None Psych: Depression, Anxiety Musculoskeletal: Osteoarthritis, Osteoporosis, Chronic back pain Derm: None - Past Surgical History Past Surgical History: Yes General: Colonoscopy, EGD /[facility] [employer]: Other - Present Medications Home Medications: Ambulatory Orders Medication Instructions Recorded Confirmed Acetaminophen [Acetaminophen Extra 500 mg PO Q8H PRN 07/29/21 07/29/21 Strength] Albuterol Sulfate [Proair Hfa 2 puffs INH Q4H PRN 07/29/21 07/29/21 Inhaler] Fluticasone/Salmeterol [Advair 2 puffs INH BID 07/29/21 07/29/21 250-50 Diskus] Furosemide [Lasix] 40 mg PO DAILY 07/29/21 07/29/21 Ipratropium/Albuterol [Duoneb] 3 ml INH QID 07/29/21 07/29/21 Lactulose 15 ml PO TID 07/29/21 07/29/21 Montelukast [Singulair] 10 mg PO QPM 07/29/21 07/29/21 Multivitamin 1 tab PO QPM 07/29/21 07/29/21 Nicotine 14 mg Patch [Nicoderm] 1 patch TOP DAILY 07/29/21 07/29/21 Pantoprazole [Protonix] 40 mg PO DAILY 07/29/21 07/29/21 Rivaroxaban [Xarelto] 10 mg PO DAILY 07/29/21 07/29/21 Spironolactone [Aldactone] 50 mg PO DAILY 07/29/21 07/29/21 Tiotropium [place] [Spiriva] 18 mcg INH QPM 07/29/21 07/29/21 buPROPion [Wellbutrin Xl] 150 mg PO DAILY #30 tablet 07/29/21 guaiFENesin [Mucinex] 1,200 mg PO BID 10 Days #40 tablet 07/29/21 levoFLOXacin [Levaquin] 500 mg PO DAILY 4 Days #4 tablet 07/29/21 methylPREDNISolone [Medrol Dose 1 each PO .PACKAGEINSTRUCTIONS 6 07/29/21 Pack] Days #1 each predniSONE [Deltasone] 10 mg PO [id number] #42 tab 08/09/21 - Allergies Allergies/Adverse Reactions: Allergies Allergy/AdvReac Type Severity Reaction Status Date / Time Latex, Natural Rubber Allergy Rash Verified 08/09/21 19:51 lisinopril Allergy Respiratory Verified 08/09/21 19:51 - Social History Does the pt smoke?: Yes Smoking Status: Current every day smoker Does the pt drink ETOH?: Yes Does the pt have substance abuse?: No - Immunizations Immunizations are current?: Yes - POLST Patient has POLST: No POLST Status: DNR (Please see advance care planning discussion) PD ED PE NORMAL - Vitals Vital signs reviewed: Yes - General General: Other (Unresponsive, intubated, bloody sputum in the endotracheal tube. Multiple skin tears to the forehead, bilateral arms.) - HEENT HEENT: Other (Pupils fixed and dilated) - Cardiac Cardiac: Other (Absent heart sounds) - Respiratory Respiratory: Other (Absent spontaneous breath sounds, there are crackles with bagging) - Abdomen Abdomen: Soft, Other (Mildly distended) - Derm Derm: Other (Cool, pale, ashen) - Extremities Extremities: No deformity - Neuro Eye Opening: None Motor: None Verbal: None GCS Score: 3 Results - Vitals Vitals: Oxygen O2 Source [With Activity] Nasal cannula O2 Source [Without Activity] Nasal cannula O2 Source Nasal cannula PD MEDICAL DECISION MAKING - ED course Complexity details: considered differential, d/w family ED course: CPR was continued from EMS. The patient briefly had pulses in the emergency department after the last epinephrine given by EMS. Patient had fixed and dilated pupils. Her chart was reviewed and confirmed that she is DNR with an advance care planning note. The patient lost pulses again and the code was called. Time of was 2007. Family was informed of the patient's passing. Spoke with the patient's daughter and . This document was made in part using voice recognition software. While efforts are made to proofread this document, sound alike and grammatical errors may occur. Departure - Departure Disposition: 20 Clinical Impression: Cardiac arrest Discharge Date/Time: 08/26/21 22:03
--- NOTE | 2021-08-26 20:17 | XRAY Report ---
PROCEDURE: Chest 1 View X-Ray INDICATIONS: s/p intubation, CPR TECHNIQUE: One view of the chest was acquired. COMPARISON: Chest x-ray 08/09/2021. FINDINGS: Study was made available for dictation 08/26/2021 at 8:08 PM Surgical changes and devices: Endotracheal tube tip approximately 3.3 cm from the [place]. Lungs and pleura: The lung apices are incompletely included on study. There is a left pneumothorax e valuation is limited due to supine technique but the pneumothorax likely moderate to large in size. T here is inferior depression of the left hemidiaphragm suggestive of tension. Visualized lungs demonst rate no consolidation. Mediastinum: Heart size is normal. Bones and chest wall: No suspicious bony lesions. There is extensive subcutaneous emphysema within t he left chest wall. IMPRESSION: 1. Limited supine study performed during CPR. 2. Left moderate to large pneumothorax with evidence of tension. Findings discussed with Dr. Willson on 08/26/2021 at 8:10 PM. Reviewed by: Mingo Ramos MD on 08/26/2021 8:16 PM PDT Approved by: Mingo Ramos MD on 08/26/2021 8:16 PM PDT Station ID: [id number]
== END 2021-08-26 20:08 | disposition expired ==
LOC: EDUNIT# → ED 19:53
DX: I46.9 Cardiac arrest, cause unspecified (principal); I10 Essential (primary) hypertension; J43.9 Emphysema, unspecified; F17.200 Nicotine dependence, unspecified, uncomplicated
CPT/HCPCS: 99281; 99285